=== PATIENT | female | born 1980 | race Caucasian/White ===

== ENCOUNTER 2019-09-22 16:31 | Emergency (ER) | payer OTHER, SELFPAY ==
[2019-09-22 16:47] VITALS: BP 127/70; PULSE 83; RESP 20; TEMP 37; O2SAT 100
--- NOTE | 2019-09-22 17:19 | ED.GENADULT ---
HPI - General Adult General Chief complaint: Upper Respiratory Infection Stated complaint: cough nausea diarrhea Time Seen by Provider: 09/22/19 17:20 Source: patient and RN notes reviewed Mode of arrival: ambulatory Limitations: no limitations History of Present Illness HPI narrative: This is a 39 years old female presented office for evaluation coughing for 3-day. Associated with rib pain and shortness of breath. She also report fever mostly at nighttime. Admits to history of asthma. She has been doing her nebulizer treatment with minimal relief. She does smoke. She did not receive influenza vaccine. She also report diarrhea today with nausea. Related Data Home Medications Medication Instructions Recorded Confirmed albuterol sulfate 2 puff INHALATION QID PRN 09/22/19 09/22/19 albuterol sulfate 2.5 mg INHALATION Q4H PRN 09/22/19 09/22/19 calcium carbonate-vitamin D3 1 tablet PO DAILY 09/22/19 09/22/19 [Calcium 500 With D] dqoxuwtxsvkb-uqv-qqzv-FA-vit K 1 tablet PO DAILY 09/22/19 09/22/19 [Adults Multivitamin] Allergies Allergy/AdvReac Type Severity Reaction Status Date / Time fentanyl Allergy Severe Stopped Verified 09/22/19 17:16 Breathing ciprofloxacin Allergy Mild RASH Verified 09/22/19 17:16 codeine Allergy Mild SEVERE Verified 09/22/19 17:16 DROWSINESS venom-honey bee Allergy Mild RASH Verified 09/22/19 17:16 levofloxacin Allergy Unknown Unknown Verified 09/22/19 17:16 Sulfa (Sulfonamide Allergy Unknown Unknown Verified 09/22/19 17:16 Antibiotics) propofol AdvReac Severe seizures Verified 09/22/19 17:16 CEFTRIAXONE SODIUM Allergy Severe Anaphylactic Uncoded 01/25/19 15:50 Shock Contrast Media Allergy Intermediate Hives / Uncoded 01/25/19 15:50 Red Face Review of Systems Review of Systems: Narrative: CONSTITUTIONAL: Denies fever during except at night time with low grade up to 100F. ENT: Reports sinus congestion with neck glans pain CARDIOVASCULAR: Denies chest pain. Reports ribs pain contributed to coughing RESPIRATORY: Reports coughing with dyspnea on exertion or talking GASTROINTESTINAL: Denies abdominal pain. Reports nausea, diarrhea. Reports vomiting at times contributed to phlegm from coughing GENITOURINARY: Denies urinary symptoms or discharge SKIN: Denies rash MUSCULOSKELETAL: Denies acute back pain NEUROLOGIC: Denies lightheaded PMFSH Past Medical History Medical History (Updated 09/22/19 @ 17:35 by ALEIDA Randle) Asthma Social History Social History (Updated 09/22/19 @ 17:19 by ALEIDA Randle) Smoking status: Current every day smoker Tobacco type: e-cigarettes Comments At time of signature, I agree with nursing past medical, surgical, social and family history. There is no relevant family history pertinent to the presenting complaint. Exam Narrative: Exam Narrative: GENERAL: This is a well-nourished, well-developed patient, in no apparent distress. EYES: Sclera clear/white. Vision is grossly intact. EARS: External ears normal, auditory canals clear and without drainage, TMs normal without perforation. Hearing grossly intact. NOSE: External nose normal with no obvious nasal discharge, nares without redness, no rhinorrhea. THROAT: Mucous membranes moist, posterior pharynx clear. NECK: Neck supple, non-tender without lymphadenopathy, masses or thyromegaly. CARDIOVASCULAR: Regular rate and rhythm without murmurs, gallops, or rubs. RESPIRATORY: Diminished breath sound throughout, with occasional cough noted during examination. Breath sounds equal bilaterally. No wheezes, rales, or rhonchi. GASTROINTESTINAL: Abdomen soft, non-tender, nondistended. Bowel sounds are active. No hepato-splenomegaly, or palpable masses. No guarding. SKIN: warm, intact with no suspicious lesions or rash, good texture and turgor. NEURO: awake, alert, and oriented to person, place and time. There were no obvious focal neurologic abnormalities. Steady gait [place]
== END 2019-09-22 17:40 | disposition home or self-care (01) ==
PROVIDERS: Emergency Provider Nurse Practitioner; PCP Family Medicine
DX: J45.909 Unspecified asthma, uncomplicated (principal); B34.9 Viral infection, unspecified; Z86.718 Personal history of other venous thrombosis and embolism; Z86.711 Personal history of pulmonary embolism; K21.9 Gastro-esophageal reflux disease without esophagitis; Z98.84 Bariatric surgery status; E11.9 Type 2 diabetes mellitus without complications; E03.9 Hypothyroidism, unspecified; E04.9 Nontoxic goiter, unspecified; N80.9 Endometriosis, unspecified; Z85.42 Personal history of malignant neoplasm of other parts of uterus; Z92.21 Personal history of antineoplastic chemotherapy
CPT/HCPCS: 99213; G0463

== ENCOUNTER 2020-09-13 01:25 | Emergency (ER) | payer OTHER, SELFPAY ==
[2020-09-13] VITALS (7 sets, daily range): BP systolic 140–157; BP diastolic 78–101; PULSE 69–101; RESP 15–20; TEMP 36.8; O2SAT 96–99
--- NOTE | 2020-09-13 01:59 | ED.GENADULT ---
HPI - General Adult General Chief complaint: Syncope Stated complaint: Dizzy, syncope? Time Seen by Provider: 09/13/20 01:39 History of Present Illness HPI narrative: Patient is a 40-year-old female who presents ER with 2 concerns. First concern is dizziness. Occurs when she goes from sitting to standing. Ongoing over the last couple days. Has had 3 episodes where it is caused her to fall to the ground. She is unsure if she has lost consciousness but knows she wakes up immediately upon being on the ground. She reports she has been eating and drinking okay. No dark stools. She does report that she has been having some urinary frequency and urgency similar to a UTI. No chest pain or chest pressure. Has found no alleviating factors. Related Data Home Medications Medication Instructions Recorded Confirmed albuterol sulfate 2 puff INHALATION QID PRN 09/22/19 09/22/19 albuterol sulfate 2.5 mg INHALATION Q4H PRN 09/22/19 09/22/19 calcium carbonate-vitamin D3 1 tablet PO DAILY 09/22/19 09/22/19 [Calcium 500 With D] abtqylbltdwa-gta-zhzd-FA-vit K 1 tablet PO DAILY 09/22/19 09/22/19 [Adults Multivitamin] Allergies Allergy/AdvReac Type Severity Reaction Status Date / Time fentanyl Allergy Severe Stopped Verified 09/22/19 17:16 Breathing ciprofloxacin Allergy Mild RASH Verified 09/22/19 17:16 codeine Allergy Mild SEVERE Verified 09/22/19 17:16 DROWSINESS venom-honey bee Allergy Mild RASH Verified 09/22/19 17:16 levofloxacin Allergy Unknown Unknown Verified 09/22/19 17:16 Sulfa (Sulfonamide Allergy Unknown Unknown Verified 09/22/19 17:16 Antibiotics) propofol AdvReac Severe seizures Verified 09/22/19 17:16 CEFTRIAXONE SODIUM Allergy Severe Anaphylactic Uncoded 01/25/19 15:50 Shock Contrast Media Allergy Intermediate Hives / Uncoded 01/25/19 15:50 Red Face Review of Systems Review of Systems: All systems reviewed & are unremarkable except as noted in HPI and below Constitutional: Constitutional: Denies chills, Denies fever(s) and Denies weakness ENT: Denies dizziness, Denies nasal congestion and Denies sore throat Cardiovascular: Cardiovascular: Denies chest pain and Denies radiating jaw, neck or arm pain Respiratory: Respiratory: Denies cough, Denies dyspnea and Denies wheezing Gastrointestinal: Gastrointestinal: Denies abdominal pain, Denies nausea and Denies vomiting Genitourinary: Genitourinary: Reports nocturia, Denies dysuria and Denies urinary incontinence Neurologic: Reports syncope and Denies headache(s) PMFSH Past Medical History Medical History (Updated 09/13/20 @ 03:32 by Donnell Jarquin MD) Anxiety Asthma COPD (chronic obstructive pulmonary disease) Cyclic vomiting syndrome Diabetes DVT (deep vein thrombosis) in Endometriosis Kidney stone SVT (supraventricular tachycardia) Uterine cancer Surgical History Surgical History (Updated 09/13/20 @ 02:03 by Donnell Jarquin MD) H/O gastric bypass History of hysterectomy History of lobectomy of lung Right upper lobe History of tonsillectomy Social History Social History (Updated 09/22/19 @ 17:19 by ALEIDA Randle) Smoking status: Current every day smoker Tobacco type: e-cigarettes/vaping Gender identity (if verbalized by the patient): Female Exam Narrative: Exam Narrative: GENERAL: Well-appearing, well-nourished, and in no acute distress. HEAD: Normocephalic, atraumatic. CHEST: Clear to auscultation. No respiratory distress. HEART: Regular rate and rhythm. Normal peripheral pulses. ABDOMEN: Soft, nontender, nondistended. EXTREMITIES: Normal range of motion. No edema. SKIN: Warm, dry, no rash. NEURO: Alert and oriented x3. PSYCH: Normal mood and affect. Course Course Emergency Course: Informed of results. Normal BP. D/c. Vital Signs Vital signs: Vital Signs Temperature 98.3 F 09/13/20 01:29 Pulse Rate 93 09/13/20 01:29 Respiratory Rate 20 09/13/20 01:29 [place]
--- NOTE | 2020-09-13 02:08 | ECG_ITS ---
Measurements Intervals [place] Rate: 86 P: 32 CT: 149 QRS: 4 QRSD: 97 T: 43 QT: 349 QTc: 420 Interpretive Statements SINUS RHYTHM NORMAL ECG Electronically Signed On 09-13-2020 6:59:50 TECHNOLOGY STRATEGIST by Justice Caldwell D.O.
[2020-09-13] MEDS: SODIUM CHLORIDE 0.9% IV 1,000 ML 999 ML IV CONT (02:19)
[2020-09-13 02:21] LABS: Basophils Percent Auto 0.5 % (0.2-1.2); Eosinophils Absolute Auto 0.2 K/mm3 (0-0.3); Eosinophils Percent Auto 2.2 % (0-4.4); Hematocrit 35.2 % (37.0-47.0); Hemoglobin 11.1 g/dL (12.0-15.0); Immature Granulocyte Absolute 0.02 K/mm3 (0.00-0.031); Immature Granulocyte Percent A 0.2 % (0-0.5); Lymphocytes Percent Auto 24.1 % (18.3-44.2); Mean Corpuscular HGB Conc 31.5 g/dl (32-36); Mean Corpuscular Hemoglobin 24.7 pg (26-34); Mean Corpuscular Volume 78.2 fl (80-100); Mean Platelet Volume 9.6 fl (7.4-10.4); Monocytes Absolute Auto 0.5 K/mm3 (0.1-0.6); Neutrophils Absolute Auto 5.6 K/mm3 (1.3-6.7); Platelet Count Result 400 k/mm3 (150-375); Red Cell Distribution Width 15.9 % (11.5-14.5); White Blood Count 8.3 K/mm3 (4.5-10.0)
[2020-09-13 02:28] LABS: Add Urine Microscopic? YES; Appearance Urine Cloudy (Clear); Bacteria Urine Trace /hpf; Bilirubin Urine Negative (Negative); Blood Urine Negative (Negative); Color Urine Yellow (Yellow); Glucose Urine UA Negative (Negative); Ketones Urine Negative (Negative); Leukocyte Esterase Ur Negative LEU/UL (Negative); Mucus Urine Rare /lpf; Nitrate Urine Negative (Negative); Protein Urine Negative (Negative); RBC Urine 0-2 /hpf (0-2); Specific Grav Ur 1.016 (1.001-1.035); Squamous Epithelial Cell Urine Moderate /hpf (Few); Urobilinogen Urine Negative mg/dL (<2.0); WBC Urine 0-3 /hpf
[2020-09-13 02:39] LABS: Anion Gap 5 mmol/L (8-16); Blood Urea Nitrogen 18 mg/dL (7-17); Carbon Dioxide 28 mmol/L (22-30); Chloride 107 mmol/L (98-107); Estimated CRCL calculation 103 ml/min; Estimated Glomerular Filt Rate > 60; Glucose 89 mg/dL (65-105); Potassium 4.8 mmol/L (3.4-5.0); Sodium 140 mmol/L (137-145)
== END 2020-09-13 03:47 | disposition home or self-care (01) ==
PROVIDERS: Emergency Provider Emergency Medicine; PCP Family Medicine
DX: R42 Dizziness and giddiness (principal); J44.9 Chronic obstructive pulmonary disease, unspecified; E11.9 Type 2 diabetes mellitus without complications; Z86.718 Personal history of other venous thrombosis and embolism; N80.9 Endometriosis, unspecified; Z87.442 Personal history of urinary calculi; Z85.42 Personal history of malignant neoplasm of other parts of uterus; Z98.84 Bariatric surgery status; F17.290 Nicotine dependence, other tobacco product, uncomplicated; Z90.2 Acquired absence of lung [part of]
CPT/HCPCS: 36415; 80048; 81001; 85025; 93005; 96360; 99284; J7030

== ENCOUNTER 2021-01-05 17:06 | Emergency (ER) | payer OTHER, SELFPAY ==
[2021-01-05 17:26] VITALS: BP 138/76; PULSE 84; RESP 20; TEMP 36.2; O2SAT 100
--- NOTE | 2021-01-05 17:36 | ED.NAVMDI ---
HPI - Nausea/Vomiting/Diarrhea General Chief complaint: Nausea/Vomiting/Diarrhea Stated complaint: Nausea, Abdominal pain Time Seen by Provider: 01/05/21 17:30 Source: patient Mode of arrival: ambulatory Limitations: no limitations History of Present Illness HPI Narrative: Tiara Mcpherson is a 40 yo female with a PMH of chronic N/V, prior HTN, DM, blood clots, depression, who comes with N/V/D since yesterday. Patient states that she feels poorly and wants some antiemetic and Imodium to try and treat her nausea vomiting so she can gradually get fluid rehydrated and sleep. Related Data Home Medications Medication Instructions Recorded Confirmed calcium carbonate-vitamin D3 1 tablet PO DAILY 09/22/19 09/22/19 [Calcium 500 With D] kfteezzabivg-iru-dbuc-FA-vit K 1 tablet PO DAILY 09/22/19 09/22/19 [Adults Multivitamin] sertraline mg 01/05/21 Allergies Allergy/AdvReac Type Severity Reaction Status Date / Time fentanyl Allergy Severe Stopped Verified 09/22/19 17:16 Breathing ciprofloxacin Allergy Mild RASH Verified 09/22/19 17:16 codeine Allergy Mild SEVERE Verified 09/22/19 17:16 DROWSINESS venom-honey bee Allergy Mild RASH Verified 09/22/19 17:16 levofloxacin Allergy Unknown Unknown Verified 09/22/19 17:16 Sulfa (Sulfonamide Allergy Unknown Unknown Verified 09/22/19 17:16 Antibiotics) propofol AdvReac Severe seizures Verified 09/22/19 17:16 CEFTRIAXONE SODIUM Allergy Severe Anaphylactic Uncoded 01/25/19 15:50 Shock Contrast Media Allergy Intermediate Hives / Uncoded 01/25/19 15:50 Red Face Review of Systems Review of Systems: Narrative: CONSTITUTIONAL: Denies fever, chills, sweats. EYES: Denies visual changes, redness, discharge. ENT: Denies rhinorrhea, congestion, sore throat, otalgia. CARDIOVASCULAR: Denies chest pain, palpitations, edema. RESPIRATORY: Denies dyspnea, wheezing, cough GASTROINTESTINAL: Denies abdominal pain, has nausea, has vomiting, has diarrhea. GENITOURINARY: Denies dysuria, hematuria, abnormal discharge SKIN: Denies rash or itching. NEUROLOGIC: Denies numbness, or focal weakness. PSYCHIATRIC: Denies anxiety or depression. [facility] Past Medical History Medical History Anxiety Asthma COPD (chronic obstructive pulmonary disease) Cyclic vomiting syndrome Diabetes DVT (deep vein thrombosis) in Endometriosis Kidney stone SVT (supraventricular tachycardia) Uterine cancer Surgical History Surgical History H/O gastric bypass History of hysterectomy History of lobectomy of lung Right upper lobe History of tonsillectomy Social History Social History Smoking status: Current every day smoker Tobacco type: e-cigarettes/vaping Gender identity (if verbalized by the patient): Female Comments At time of signature, I agree with nursing past medical, surgical, social and family history. There is no relevant family history pertinent to the presenting complaint. Exam Narrative: Exam Narrative: GENERAL: This is a well-nourished, well-developed patient, in mild distress. HEAD: normocephalic, atraumatic. EYES: Sclera clear/white. Vision is grossly intact. EARS: External ears normal, . Hearing grossly intact. NOSE: External nose normal without nasal discharge, nares without redness, no rhinorrhea. THROAT: Mucous membranes moist, NECK: Neck supple, non-tender CARDIOVASCULAR: Regular rate and rhythm without murmurs, gallops, or rubs. RESPIRATORY: Coarse to auscultation. Breath sounds equal bilaterally. Mild diffuse wheezes, no rales, or rhonchi.(smoker) GASTROINTESTINAL: Abdomen soft, epigastric tenderness, no tenderness in other regions of abdomen.epigastric pain-clear pain with palpation, hypoactive bowel sounds SKIN: warm, intact with no suspicious lesions or rash, good texture and turgor. NEURO
[2021-01-05] MEDS: ONDANSETRON HCL ODT 4 MG TABLET SUBLINGUAL (18:19)
== END 2021-01-05 18:26 | disposition short-term general hospital (02) ==
PROVIDERS: Emergency Provider Nurse Practitioner; PCP Family Medicine
DX: E86.0 Dehydration (principal); R10.13 Epigastric pain; F17.200 Nicotine dependence, unspecified, uncomplicated; J44.9 Chronic obstructive pulmonary disease, unspecified; E11.9 Type 2 diabetes mellitus without complications; Z86.718 Personal history of other venous thrombosis and embolism; Z85.42 Personal history of malignant neoplasm of other parts of uterus; Z98.84 Bariatric surgery status; Z90.2 Acquired absence of lung [part of]; N80.9 Endometriosis, unspecified
CPT/HCPCS: 81003; 99213; A9270; G0463

== ENCOUNTER 2021-01-05 19:17 | Emergency (ER) | payer OTHER, SELFPAY ==
--- NOTE | ~2021-01-05 | CT_ITS ---
EXAMINATION: CT abdomen pelvis wo con DATE: 01/05/2021 23:07 INDICATION: Abdominal pain TECHNIQUE: Computed tomography (CT) of the abdomen and pelvis was performed without intravenous contr ast. Automated exposure control and iterative reconstruction technique were employed. Exam dose: 163 7.23 mGy-cm total exam DLP. COMPARISON: 03/10/2017 CT abdomen pelvis FINDINGS: The lung bases are clear of infiltrate or consolidation. Normal heart size. There is patten ry artery calcification. No pericardial or pleural effusion. Status post gastric bypass surgery. The liver, gallbladder, bile ducts, pancreas, pancreatic duct, spleen and adrenal glands are unremark able. No renal mass lesion or urinary tract calculus or hydroureteronephrosis. Normal caliber of the abdomi nal aorta. No intraperitoneal or retroperitoneal or pelvic mass lesion or adenopathy or ascites. The urinary bladder is largely evacuated. Normal appendix. Status post hysterectomy. Diverticulosis of the left and right colon; no CT evidence of diverticuliti s. No bowel obstruction, bowel wall thickening, pneumatosis or intraperitoneal free air. Normal caliber, calcification of the abdominal aorta and iliac arteries. No intraperitoneal or retrop eritoneal or pelvic mass lesion or adenopathy or ascites. Prominent degenerative disc disease and minimal retrolisthesis at L5-S1. No suspicious osteolytic or osteoblastic lesions are noted. IMPRESSION: Status post gastric bypass surgery Status post hysterectomy Diverticulosis of left and right colon; no CT evidence of diverticulitis Normal appendix Reviewed, dictated and finalized at [facility] Reviewed, dictated and finalized at [facility].
[2021-01-05 20:32] VITALS: BP 156/85; PULSE 84; RESP 17; TEMP 36.6; O2SAT 99
[2021-01-05 20:53] LABS: Basophils Percent Auto 0.6 % (0.2-1.2); Eosinophils Absolute Auto 0.2 K/mm3 (0-0.3); Eosinophils Percent Auto 3.1 % (0-4.4); Hematocrit 34.1 % (37.0-47.0); Hemoglobin 10.3 g/dL (12.0-15.0); Immature Granulocyte Absolute 0.01 K/mm3 (0.00-0.031); Immature Granulocyte Percent A 0.1 % (0-0.5); Lymphocytes Percent Auto 27.7 % (18.3-44.2); Mean Corpuscular HGB Conc 30.2 g/dl (32-36); Mean Corpuscular Hemoglobin 23.3 pg (26-34); Mean Corpuscular Volume 77.1 fl (80-100); Mean Platelet Volume 9.3 fl (7.4-10.4); Monocytes Absolute Auto 0.5 K/mm3 (0.1-0.6); Monocytes Percent Auto 7.4 % (2.6-8.5); Neutrophils Absolute Auto 4.2 K/mm3 (1.3-6.7); Neutrophils Percent Auto 61.1 % (45.5-73.1); Platelet Count Result 432 k/mm3 (150-375); Red Blood Count 4.42 M/mm3 (4.2-5.4); Red Cell Distribution Width 16.7 % (11.5-14.5); White Blood Count 6.9 K/mm3 (4.5-10.0)
[2021-01-05 20:56] LABS: Add Urine Microscopic? YES; Appearance Urine Cloudy (Clear); Bilirubin Urine Negative (Negative); Blood Urine Negative (Negative); Color Urine Amber (Yellow); Glucose Urine UA Negative (Negative); Ketones Urine Negative (Negative); Leukocyte Esterase Ur Negative LEU/UL (Negative); Mucus Urine Rare /lpf; Nitrate Urine Negative (Negative); Protein Urine Negative (Negative); RBC Urine 0-2 /hpf (0-2); Specific Grav Ur 1.019 (1.001-1.035); Squamous Epithelial Cell Urine Rare /hpf (Few); Urobilinogen Urine Negative mg/dL (<2.0); WBC Urine 0-3 /hpf
[2021-01-05 21:03] LABS: Alanine Aminotransferase 23 U/L (4-35); Albumin Level 4.3 g/dL (3.5-5.1); Alkaline Phosphatase 78 U/L (38-126); Anion Gap 10 mmol/L (8-16); Aspartate Amino Transferase 32 U/L (14-36); Bilirubin,Total 0.3 mg/dL (0.2-1.3); Blood Urea Nitrogen 19 mg/dL (7-17); Calcium 9.6 mg/dL (8.4-10.2); Carbon Dioxide 24 mmol/L (22-30); Chloride 109 mmol/L (98-107); Estimated CRCL calculation 106 ml/min; Estimated Glomerular Filt Rate > 60; Glucose 89 mg/dL (65-105); Lipase 89 U/L (23-300); Potassium 4.1 mmol/L (3.4-5.0); Sodium 143 mmol/L (137-145)
--- NOTE | 2021-01-05 22:33 | ED.GENADULT ---
HPI - General Adult General Chief complaint: Abdominal Pain Stated complaint: Abd pain Time Seen by Provider: 01/05/21 22:11 History of Present Illness HPI narrative: Patient 40-year-old female presents the emergency department with chief complaint of abdominal pain. Patient reports for the last 2 days she has been having pain in the right upper quadrant and epigastric region. The patient states that she is also had nausea and vomiting and has had poor p.o. intake patient states that she went to an urgent care facility was seen there and then transferred to the emergency department for further evaluation. Patient states she still feels extremely nauseated states that she is very uncomfortable throughout her abdomen. The patient reports she still has an intact gallbladder and intact appendix. Patient states that she has had no fevers no diarrhea patient reports that she does have history of a hysterectomy and a surgical procedure also for complications after the hysterectomy. Related Data Home Medications Medication Instructions Recorded Confirmed calcium carbonate-vitamin D3 1 tablet PO DAILY 09/22/19 09/22/19 [Calcium 500 With D] ewuywiuofdjf-vxe-skio-FA-vit K 1 tablet PO DAILY 09/22/19 09/22/19 [Adults Multivitamin] sertraline mg 01/05/21 Allergies Allergy/AdvReac Type Severity Reaction Status Date / Time fentanyl Allergy Severe Stopped Verified 09/22/19 17:16 Breathing ciprofloxacin Allergy Mild RASH Verified 09/22/19 17:16 codeine Allergy Mild SEVERE Verified 09/22/19 17:16 DROWSINESS venom-honey bee Allergy Mild RASH Verified 09/22/19 17:16 levofloxacin Allergy Unknown Unknown Verified 09/22/19 17:16 Sulfa (Sulfonamide Allergy Unknown Unknown Verified 09/22/19 17:16 Antibiotics) propofol AdvReac Severe seizures Verified 09/22/19 17:16 CEFTRIAXONE SODIUM Allergy Severe Anaphylactic Uncoded 01/25/19 15:50 Shock Contrast Media Allergy Intermediate Hives / Uncoded 01/25/19 15:50 Red Face Review of Systems Review of Systems: Narrative: A 10 system review of systems was completed on the patient and is negative except for what is stated in the HPI. Nursing and ancillary documentation was reviewed. [facility] Past Medical History Medical History Anxiety Asthma COPD (chronic obstructive pulmonary disease) Cyclic vomiting syndrome Diabetes DVT (deep vein thrombosis) in Endometriosis Kidney stone SVT (supraventricular tachycardia) Uterine cancer Surgical History Surgical History H/O gastric bypass History of hysterectomy History of lobectomy of lung Right upper lobe History of tonsillectomy Social History Social History Smoking status: Current every day smoker Tobacco type: e-cigarettes/vaping Gender identity (if verbalized by the patient): Female Exam Narrative: Exam Narrative: GENERAL: Well-appearing, well-nourished, and in no acute distress. HEAD: Normocephalic, atraumatic. EYES: PERRLA and EOMI. ENT: Nares clear, no rhinorrhea or epistaxis. Mucous membranes moist. NECK: Supple. CHEST: Clear to auscultation. No respiratory distress. HEART: Regular rate and rhythm. No murmur heard. Normal peripheral pulses. ABDOMEN: Soft, tender to palpation in the right upper quadrant and right lower quadrant, nondistended, normal active bowel sounds. EXTREMITIES: Normal range of motion. No edema. SKIN: Warm, dry, no rash. NEURO: No focal deficits. Alert and oriented x3. PSYCH: Normal mood and affect. Course Vital Signs Vital signs: Vital Signs Temperature 36.6 C 01/05/21 20:32 Pulse Rate 84 01/05/21 20:32 Respiratory Rate 17 01/05/21 20:32 Blood Pressure 156/85 H 01/05/21 20:32 Pulse Oximetry 99 01/05/21 20:32 Temperature 36.6 C 01/05/21 20:32 Pulse Rate 8
[2021-01-05] MEDS: MORPHINE SULFATE (*CRX) 4 MG/ML INJ IV PUSH (22:55)
[2021-01-05] MEDS: PROCHLORPERAZINE EDISYLATE 10 MG/2 ML VIAL IV PUSH (22:56)
[2021-01-05] MEDS: SODIUM CHLORIDE 0.9% IV 1,000 ML 999 ML IV CONT (22:56)
[2021-01-05 23:00] VITALS: BP 108/57; PULSE 78; RESP 20; TEMP 36.7; O2SAT 97
--- NOTE | 2021-01-05 23:20 | PC.NURSE ---
Assumed care of pt. at this time. Report from SANJIV Ahmadi
--- NOTE | 2021-01-05 23:55 | PC.NURSE ---
Pt. requesting an update. ERP notified states he will be in to update pt. shortly.
[2021-01-06] VITALS: BP 127/89; PULSE 64; RESP 12; O2SAT 97
== END 2021-01-06 00:37 | disposition left against medical advice (07) ==
PROVIDERS: Emergency Provider Emergency Medicine; PCP Family Medicine
DX: R10.84 Generalized abdominal pain (principal); J44.9 Chronic obstructive pulmonary disease, unspecified; E11.9 Type 2 diabetes mellitus without complications; N80.9 Endometriosis, unspecified; F41.9 Anxiety disorder, unspecified; Z87.442 Personal history of urinary calculi; Z85.42 Personal history of malignant neoplasm of other parts of uterus; Z86.718 Personal history of other venous thrombosis and embolism; Z98.84 Bariatric surgery status; F17.290 Nicotine dependence, other tobacco product, uncomplicated
CPT/HCPCS: 36415; 74176; 80053; 81001; 81003; 81025; 83690; 85025; 96361; 96374; 96375; 99284; A9270; J0780; J2270; J7030

== ENCOUNTER 2021-04-23 18:48 | Emergency (ER) | payer OTHER, SELFPAY ==
--- NOTE | ~2021-04-23 | CT_ITS ---
EXAMINATION: CT abdomen pelvis wo con DATE: 04/23/2021 21:58 INDICATION: Right flank pain. TECHNIQUE: Computed tomography (CT) of the abdomen and pelvis was performed without intravenous contr ast. Automated exposure control and iterative reconstruction technique were employed. The dose-length product was 792.97 mGy-cm. COMPARISON: CT abdomen and pelvis 01/05/2021 FINDINGS: The visualized portions of the lung bases demonstrate mild atelectasis. No pleural effusion . The heart size is normal. No pericardial effusion. There are surgical changes of the stomach. The l iver, gallbladder, spleen, pancreas, adrenal glands, and left kidney are normal. There is a 1 mm ston e in right kidney. There is diverticulosis of the colon without evidence of diverticulitis. The appen betsy is normal. There are no dilated loops of bowel. There are no pathologically enlarged lymph nodes. There is no free intraperitoneal fluid. There is severe lumbar spondylosis. There is mild thoracic s pondylosis. IMPRESSION: 1. 1 mm nonobstructing right kidney stone. Reviewed, dictated and finalized at [facility]
--- NOTE | ~2021-04-23 | XR_ITS ---
EXAMINATION: XR abdomen/kub 1V DATE: 04/23/2021 22:05 INDICATION: Right flank pain. TECHNIQUE: A supine view of the abdomen on 2 radiographs was obtained. COMPARISON: CT abdomen and pelvis 04/23/2021 FINDINGS: There are no dilated loops of bowel. There is a phlebolith in right pelvis. IMPRESSION: 1. No visible urolithiasis. Reviewed, dictated and finalized at [facility]. IMPRESSION: 1. No visible urolithiasis.
[2021-04-23 19:30] VITALS: BP 126/79; PULSE 77; RESP 20; TEMP 36.6; O2SAT 99
[2021-04-23 19:31] LABS: Basophils Absolute Auto 0.1 K/mm3 (0.0-0.1); Basophils Percent Auto 0.8 % (0.2-1.2); Eosinophils Absolute Auto 0.2 K/mm3 (0-0.3); Eosinophils Percent Auto 2.2 % (0-4.4); Hematocrit 35.1 % (37.0-47.0); Hemoglobin 10.6 g/dL (12.0-15.0); Immature Granulocyte Absolute 0.02 K/mm3 (0.00-0.031); Immature Granulocyte Percent A 0.3 % (0-0.5); Lymphocytes Absolute Auto 2.13 K/mm3 (0.9-3.2); Lymphocytes Percent Auto 27.3 % (18.3-44.2); Mean Corpuscular HGB Conc 30.2 g/dl (32-36); Mean Corpuscular Hemoglobin 22.7 pg (26-34); Mean Corpuscular Volume 75.3 fl (80-100); Mean Platelet Volume 9.2 fl (7.4-10.4); Monocytes Absolute Auto 0.6 K/mm3 (0.1-0.6); Monocytes Percent Auto 7.6 % (2.6-8.5); Neutrophils Absolute Auto 4.8 K/mm3 (1.3-6.7); Neutrophils Percent Auto 61.8 % (45.5-73.1); Platelet Count Result 390 k/mm3 (150-375); Red Blood Count 4.66 M/mm3 (4.2-5.4); Red Cell Distribution Width 16.6 % (11.5-14.5); White Blood Count 7.8 K/mm3 (4.5-10.0)
[2021-04-23 19:38] LABS: Add Urine Microscopic? YES; Appearance Urine Cloudy (Clear); Bilirubin Urine Negative (Negative); Blood Urine 3+ (Negative); Color Urine Amber (Yellow); Glucose Urine UA Negative (Negative); Ketones Urine Negative (Negative); Leukocyte Esterase Ur Negative LEU/UL (Negative); Mucus Urine Rare /lpf; Nitrate Urine Negative (Negative); Protein Urine Negative (Negative); RBC Urine >75 /hpf (0-2); Specific Grav Ur 1.026 (1.001-1.035); Squamous Epithelial Cell Urine Few /hpf (Few); Urobilinogen Urine Negative mg/dL (<2.0)
[2021-04-23 19:40] LABS: Anion Gap 11 mmol/L (8-16); Blood Urea Nitrogen 19 mg/dL (7-17); Calcium 9.2 mg/dL (8.4-10.2); Carbon Dioxide 25 mmol/L (22-30); Chloride 104 mmol/L (98-107); Estimated CRCL calculation 115 ml/min; Estimated Glomerular Filt Rate > 60; Glucose 74 mg/dL (65-110); Potassium 4.4 mmol/L (3.4-5.0); Sodium 140 mmol/L (137-145)
--- NOTE | 2021-04-23 21:40 | ED.ABDPAIN ---
HPI - Abdominal Pain General Chief Complaint: Abdominal Pain Stated Complaint: right flank pain, dysuria Time Seen by Provider: 04/23/21 21:19 Source: patient and RN notes reviewed Mode of arrival: ambulatory Limitations: no limitations History of Present Illness HPI narrative: This is a 40 year old female who presents for evaluation of right lower abdominal pain for 3 days. She reports right lower abdominal pain that radiates to her low back. She reports her pain intermittently worsens and today she develop nausea and vomiting with her pain. She is having increased urinary urgency and dysuria so she is concerned about of kidney infection or a kidney stone. Today she has been unable to keep any food of fluids down. She denies fever or chills. She reports she is able to take hydromorphone for pain with out allergic reaction. Related Data Home Medications Medication Instructions Recorded Confirmed calcium carbonate-vitamin D3 1 tablet PO DAILY 09/22/19 09/22/19 [Calcium 500 With D] sehusnmyxjhx-ute-nphw-FA-vit K 1 tablet PO DAILY 09/22/19 09/22/19 [Adults Multivitamin] sertraline mg 01/05/21 Allergies Allergy/AdvReac Type Severity Reaction Status Date / Time fentanyl Allergy Severe Stopped Verified 04/23/21 23:25 Breathing ciprofloxacin Allergy Mild RASH Verified 04/23/21 23:25 codeine Allergy Mild SEVERE Verified 04/23/21 23:25 DROWSINESS venom-honey bee Allergy Mild RASH Verified 04/23/21 23:25 levofloxacin Allergy Unknown Unknown Verified 04/23/21 23:25 Sulfa (Sulfonamide Allergy Unknown Unknown Verified 04/23/21 23:25 Antibiotics) propofol AdvReac Severe seizures Verified 04/23/21 23:25 CEFTRIAXONE SODIUM Allergy Severe Anaphylactic Uncoded 04/23/21 23:25 Shock Contrast Media Allergy Intermediate Hives / Uncoded 04/23/21 23:25 Red Face Review of Systems Review of Systems: All systems reviewed & are unremarkable except as noted in HPI and below PMFSH Past Medical History Medical History Anxiety Asthma COPD (chronic obstructive pulmonary disease) Cyclic vomiting syndrome Diabetes DVT (deep vein thrombosis) in Endometriosis Kidney stone SVT (supraventricular tachycardia) Uterine cancer Surgical History Surgical History H/O gastric bypass History of hysterectomy History of lobectomy of lung Right upper lobe History of tonsillectomy Social History Social History Smoking status: Current every day smoker Tobacco type: e-cigarettes/vaping Gender identity (if verbalized by the patient): Female Exam Const: General: no acute distress and alert Orientation/consciousness: patient oriented x3 Eyes: EOM: EOMs intact bilaterally Chest: Chest palpation & inspection: normal inspection of the chest Resp: Effort & Inspection: normal respiratory effort and no retractions Auscultation: clear to auscultation bilaterally Cardio: Rate: regular rate Rhythm: regular rhythm Heart sounds: no murmurs GI: GI Palp: Yes Soft to palpation, Yes Tenderness to palpation present (GI) and No Guarding due to palpation present (GI) Auscultation: normal bowel sounds : General: Yes CVA tenderness on the right Skin: General skin exam: normal color Rashes: no rashes Neuro: General: patient oriented x3, moves all extremities and CN's II-XI intact bilaterally Psych: Mental Status: mental status grossly normal Affect: normal affect Course Reevaluation(s) Reevaluation #1: PAtient reports she feels better. I Discussed Ct scan was unremarkable. She possible already passed stone. She is eager to leave as she has a tomorrow. Date: 04/24/21 Time: 00:07 Vital Signs Vital signs: Vital Signs Temperature 97.9 F 04/23/21 19:30 Pulse Rate 77 04/23/21 19:30 Respiratory Rate 20 04/23/21
--- NOTE | 2021-04-23 22:18 | PC.NURSE ---
Pt to ED c/o RLQ and right flank pain x 3 days. reports hx of kidney stones. also c/o painful urination. IV attempted x 2 without success. pt appears in no acute distress.
[2021-04-23] MEDS: ONDANSETRON HCL ODT 4 MG TABLET 8 MG PO (23:26)
[2021-04-23] MEDS: PHENAZOPYRIDINE HCL 100 MG TABLET 200 MG PO (23:26)
[2021-04-23] MEDS: HYDROmorphone HCL INJ (*CRX) 1 MG/ML SYR IM (23:28)
[2021-04-24 00:24] VITALS: BP 123/88; PULSE 62; RESP 16; O2SAT 98
== END 2021-04-24 00:26 | disposition home or self-care (01) ==
PROVIDERS: Emergency Provider General Practice; PCP Family Medicine
DX: R31.9 Hematuria, unspecified (principal); R10.9 Unspecified abdominal pain; F41.9 Anxiety disorder, unspecified; J44.9 Chronic obstructive pulmonary disease, unspecified; E11.9 Type 2 diabetes mellitus without complications; F17.290 Nicotine dependence, other tobacco product, uncomplicated; Z87.09 Personal history of other diseases of the respiratory system; Z86.718 Personal history of other venous thrombosis and embolism; Z87.442 Personal history of urinary calculi; Z90.710 Acquired absence of both cervix and uterus; Z90.89 Acquired absence of other organs
CPT/HCPCS: 36415; 74018; 74176; 80048; 81001; 81025; 85025; 96372; 99284; A9270; J1170

== ENCOUNTER 2021-04-25 19:02 | Emergency (ER) | payer OTHER, SELFPAY ==
[2021-04-25] VITALS (7 sets, daily range): BP systolic 108–156; BP diastolic 68–95; PULSE 72–89; RESP 14–16; TEMP 36.3–36.4; O2SAT 96–100
[2021-04-25 19:21] LABS: Basophils Absolute Auto 0.1 K/mm3 (0.0-0.1); Basophils Percent Auto 0.6 % (0.2-1.2); Eosinophils Absolute Auto 0.2 K/mm3 (0-0.3); Hematocrit 36.3 % (37.0-47.0); Hemoglobin 10.8 g/dL (12.0-15.0); Immature Granulocyte Absolute 0.02 K/mm3 (0.00-0.031); Immature Granulocyte Percent A 0.2 % (0-0.5); Lymphocytes Absolute Auto 1.76 K/mm3 (0.9-3.2); Lymphocytes Percent Auto 20.2 % (18.3-44.2); Mean Corpuscular HGB Conc 29.8 g/dl (32-36); Mean Corpuscular Volume 77.4 fl (80-100); Mean Platelet Volume 9.8 fl (7.4-10.4); Monocytes Absolute Auto 0.5 K/mm3 (0.1-0.6); Monocytes Percent Auto 5.9 % (2.6-8.5); Neutrophils Absolute Auto 6.2 K/mm3 (1.3-6.7); Neutrophils Percent Auto 71.1 % (45.5-73.1); Platelet Count Result 364 k/mm3 (150-375); Red Blood Count 4.69 M/mm3 (4.2-5.4); White Blood Count 8.7 K/mm3 (4.5-10.0)
[2021-04-25 19:31] LABS: Alanine Aminotransferase 18 U/L (4-35); Albumin Level 4.7 g/dL (3.5-5.1); Alkaline Phosphatase 78 U/L (38-126); Anion Gap 10 mmol/L (8-16); Aspartate Amino Transferase 22 U/L (14-36); Bilirubin,Total 0.4 mg/dL (0.2-1.3); Blood Urea Nitrogen 22 mg/dL (7-17); Calcium 9.1 mg/dL (8.4-10.2); Carbon Dioxide 23 mmol/L (22-30); Chloride 105 mmol/L (98-107); Estimated CRCL calculation 115 ml/min; Estimated Glomerular Filt Rate > 60; Glucose 117 mg/dL (65-110); Lipase 142 U/L (23-300); Potassium 4.2 mmol/L (3.4-5.0); Sodium 138 mmol/L (137-145)
[2021-04-25 19:45] LABS: Add Urine Microscopic? YES; Appearance Urine Cloudy (Clear); Bilirubin Urine Negative (Negative); Blood Urine 3+ (Negative); Color Urine Amber (Yellow); Glucose Urine UA Negative (Negative); Ketones Urine Negative (Negative); Leukocyte Esterase Ur Negative LEU/UL (Negative); Mucus Urine Rare /lpf; Nitrate Urine Negative (Negative); Protein Urine 1+ mg/dL (Negative); RBC Urine >75 /hpf (0-2)
[2021-04-25 19:46] LABS: Hypochromasia 1+ (NORMAL); Platelet Estimate Adequate (Adequate)
[2021-04-25 19:47] LABS: Anisocytosis 2+ (NORMAL)
[2021-04-25 19:52] LABS: Specific Grav Ur 1.033 (1.001-1.035)
--- NOTE | 2021-04-25 22:22 | ED.NAVMDI ---
HPI - Nausea/Vomiting/Diarrhea General Chief complaint: Nausea/Vomiting/Diarrhea Stated complaint: Vomiting Time Seen by Provider: 04/25/21 21:28 Source: patient Mode of arrival: ambulatory Limitations: no limitations History of Present Illness HPI Narrative: Patient is a 38-year-old female complaining of nausea vomiting accompanied by left flank pain and increased urinary frequency that started 3 days ago. Patient states that she was seen here 2 days ago for the same complaints, was diagnosed with UTI and given Macrobid. Patient states that she cannot keep the antibiotic down due to her constant nausea vomiting. Patient had labs and a CT scan done 2 days ago when she was seen here in the emergency room. Related Data Home Medications Medication Instructions Recorded Confirmed calcium carbonate-vitamin D3 1 tablet PO DAILY 09/22/19 09/22/19 [Calcium 500 With D] solidmolqhsi-rii-fytx-FA-vit K 1 tablet PO DAILY 09/22/19 09/22/19 [Adults Multivitamin] sertraline mg 01/05/21 Allergies Allergy/AdvReac Type Severity Reaction Status Date / Time fentanyl Allergy Severe Stopped Verified 04/23/21 23:25 Breathing ciprofloxacin Allergy Mild RASH Verified 04/23/21 23:25 codeine Allergy Mild SEVERE Verified 04/23/21 23:25 DROWSINESS venom-honey bee Allergy Mild RASH Verified 04/23/21 23:25 levofloxacin Allergy Unknown Unknown Verified 04/23/21 23:25 Sulfa (Sulfonamide Allergy Unknown Unknown Verified 04/23/21 23:25 Antibiotics) propofol AdvReac Severe seizures Verified 04/23/21 23:25 CEFTRIAXONE SODIUM Allergy Severe Anaphylactic Uncoded 04/23/21 23:25 Shock Contrast Media Allergy Intermediate Hives / Uncoded 04/23/21 23:25 Red Face Review of Systems Review of Systems: All systems reviewed & are unremarkable except as noted in HPI and below Constitutional: Constitutional: Denies body ache(s), Denies chills, Denies excessive sweating, Denies fatigue, Denies fever(s), Denies headache(s), Denies lethargy, Denies malaise, Denies weakness and Denies weight loss Eyes: Eyes: Denies blurry vision, Denies change in vision and Denies loss of vision ENT: Denies dizziness, Denies ear discharge, Denies headache(s), Denies lip swelling, Denies epistaxis, Denies nasal congestion, Denies neck pain, Denies throat swelling and Denies tongue swelling Cardiovascular: Cardiovascular: Denies chest pain, Denies chest pain at rest, Denies chest pain with activity, Denies diaphoresis, Denies rapid heart rate, Denies edema, Denies irregular heart rhythm, Denies lightheadedness, Denies palpitations, Denies dyspnea and Denies dyspnea on exertion Respiratory: Respiratory: Denies chest congestion, Denies cough, Denies hemoptysis, Denies dyspnea and Denies dyspnea on exertion Gastrointestinal: Gastrointestinal: Denies abdominal pain, Denies melena, Denies hematochezia, Denies diarrhea and Denies hematemesis Musculoskeletal: Musculoskeletal: Denies abnormal gait, Denies deformity, Denies joint swelling, Denies limited range of motion, Denies neck pain and Denies numbness Neurologic: Denies Abnormal speech present, Denies abnormal gait, Denies confusion, Denies dizziness, Denies headache(s), Denies focal weakness, Denies loss of vision, Denies numbness, Denies Other visual disturbances, Denies Sensory deficit (Neuro) and Denies weakness Psychiatric: Psychiatric: Denies confusion, Denies depression, Denies auditory hallucinations, Denies homicidal ideation and Denies suicidal ideation Endocrine: Endocrine: Denies cold intolerance, Denies excessive sweating, Denies fatigue, Denies heat intolerance and Denies palpitations Hematologic/Lymphatic: Hematologic/Lymphatic: Denies easy bleeding and Denies easy bruising Allergic/Immunologic: Allergic/Immunologic: Denies lip swelling, Denies throat swelling and Denies tongue swelling PMFSH Past Medical History Medical History Anxiety Asthma CO
[2021-04-25] MEDS: PROMETHAZINE HCL 25 MG/ML AMPUL 12.5 MG IV PUSH (22:33)
[2021-04-25] MEDS: SODIUM CHLORIDE 0.9% IV 1,000 ML 999 ML IV CONT (22:35)
[2021-04-26] MEDS: KETOROLAC 30 MG/ML VIAL (*BKC) IV PUSH (00:21)
[2021-04-26] MEDS: HYDROcodone/acetaminophen (*CRX) 5-325 MG TABLET 1 TAB PO (00:22)
[2021-04-26 00:23] VITALS: BP 118/81; PULSE 100; RESP 19; O2SAT 99
[2021-04-26 01:16] VITALS: BP 121/74; PULSE 77; RESP 14; O2SAT 97
== END 2021-04-26 01:16 | disposition home or self-care (01) ==
PROVIDERS: Emergency Medicine; Emergency Provider Emergency Medicine; PCP Family Medicine
DX: N39.0 Urinary tract infection, site not specified (principal); R11.2 Nausea with vomiting, unspecified; F41.9 Anxiety disorder, unspecified; J45.909 Unspecified asthma, uncomplicated; E11.9 Type 2 diabetes mellitus without complications; Z87.442 Personal history of urinary calculi
CPT/HCPCS: 36415; 80053; 81001; 81025; 83690; 85025; 96361; 96365; 96374; 96375; 99284; A9270; J1885; J2543; J2550; J7030

== ENCOUNTER 2021-08-06 10:54 | Emergency (ER) | payer OTHER, SELFPAY ==
--- NOTE | ~2021-08-06 | XR_ITS ---
EXAMINATION: XR ankle RT min 3V EXAM DATE: 08/06/2021 11:27 INDICATION: Right ankle injury, pain. Initial encounter. TECHNIQUE: Right ankle frontal, lateral and oblique projections obtained and reviewed. There is no p rior study for comparison. FINDINGS: The right ankle mortise appears intact. Tiny inferior calcaneal spur. There are no acute fractures or dislocations identified. There is no subcutaneous gas. The soft tissue is unremarkabl e. There are no radiopaque foreign bodies. IMPRESSION: No acute osseous findings. Reviewed, dictated and finalized at location A. NCIAL AID COORDINATOR IMPRESSION: No acute osseous findings.
[2021-08-06 11:06] VITALS: BP 126/97; PULSE 81; RESP 16; TEMP 37; O2SAT 100
--- NOTE | 2021-08-06 12:23 | ED.LOWEXIN ---
HPI - Extremity Injury (Lower) General Chief Complaint: Extremity Injury, Lower Stated Complaint: right ankle injury Time Seen by Provider: 08/06/21 12:24 Source: patient, RN notes reviewed and old records reviewed Mode of arrival: ambulatory Limitations: no limitations History of Present Illness HPI Narrative: 41 year old female who presents ambulatory to [facility] and was placed in wheelchair with complaints of pain to her medial and lateral right ankle after slipping on wet tile last night Patient states that her pain is 8/10 is sharp and shooting in intensity has taken Naproxen and applied ice to her ankle region no acute swelling or bruising noted to right ankle. Patient has strong right pedal pulse with no stated tingling or numbness of right foot, with foot warm and pink. Patient has not had COVID or Flu vaccinations. MD complaint: ankle injury Injury: Right: ankle Type of Injury: other (twisting) Severity scale (1-10): 8 Treatments prior to arrival: cold therapy and NSAIDS Related Data Home Medications Medication Instructions Recorded Confirmed fpadenrwofts-duh-xpsc-FA-vit K 1 tablet PO DAILY 09/22/19 08/06/21 [Adults Multivitamin] sertraline 100 mg PO DAILY 08/06/21 08/06/21 Allergies Allergy/AdvReac Type Severity Reaction Status Date / Time fentanyl Allergy Severe Stopped Verified 08/06/21 11:18 Breathing ciprofloxacin Allergy Mild RASH Verified 08/06/21 11:18 codeine Allergy Mild SEVERE Verified 08/06/21 11:18 DROWSINESS venom-honey bee Allergy Mild RASH Verified 08/06/21 11:18 levofloxacin Allergy Unknown Unknown Verified 08/06/21 11:18 Sulfa (Sulfonamide Allergy Unknown Unknown Verified 08/06/21 11:18 Antibiotics) propofol AdvReac Severe seizures Verified 08/06/21 11:18 CEFTRIAXONE SODIUM Allergy Severe Anaphylactic Uncoded 04/23/21 23:25 Shock Contrast Media Allergy Intermediate Hives / Uncoded 04/23/21 23:25 Red Face Review of Systems Review of Systems: CONSTITUTIONAL: Denies fever, chills, or sweats. EYES: Denies visual changes, redness, or discharge. ENT: Denies rhinorrhea, congestion, sore throat, or otalgia. CARDIOVASCULAR: Denies chest pain, palpitations, or edema. RESPIRATORY: Denies cough or dyspnea. GASTROINTESTINAL: Denies abdominal pain, nausea, vomiting, or diarrhea. GENITOURINARY: Denies dysuria or hematuria. SKIN: Denies rash or itching. MUSCULOSKELETAL: Denies back pain,positive for right ankle joint pain, or myalgia. NEUROLOGIC: Denies headache, numbness, or weakness. PSYCHIATRIC: Positive for history of anxiety or depression. All systems reviewed & are unremarkable except as noted in HPI and below PMFSH Past Medical History Medical History (Updated 08/07/21 @ 14:21 by Jackie Hirsch NP) Anxiety Anxiety and depression Asthma COPD (chronic obstructive pulmonary disease) Cyclic vomiting syndrome Diabetes DVT (deep vein thrombosis) in Endometriosis Kidney stone SVT (supraventricular tachycardia) Uterine cancer Surgical History Surgical History H/O gastric bypass History of hysterectomy History of lobectomy of lung Right upper lobe History of tonsillectomy Social History Social History (Updated 08/07/21 @ 14:29 by Jackie Hirsch NP) Smoking packs per day: 0.5 Smoking cigarettes per day: 10.0 Years smoked: 31 Smoking pack-years: 15.50 Smoking status: Current every day smoker Tobacco type: cigarettes and e-cigarettes/vaping Alcohol intake: unknown Substance use: unknown Living arrangements: with friend(s) Gender identity (if verbalized by the patient): Female Comments At time of signature, agree with nursing past medical, surgical, social and family history. There is no relevant family history pertinent to the presenting complaint Exam Narrative: GENERAL: Well-appearing, well-nourished, and in no acute distress. HEAD: Normocephalic, atraumatic. E
== END 2021-08-06 12:44 | disposition home or self-care (01) ==
PROVIDERS: Emergency Provider Registered Nurse
DX: S93.401A Sprain of unspecified ligament of right ankle, initial encounter (principal); S96.911A Strain of unspecified muscle and tendon at ankle and foot level, right foot, initial encounter; W01.0XXA Fall on same level from slipping, tripping and stumbling without subsequent striking against object, initial encounter; F41.9 Anxiety disorder, unspecified; F32.A Depression, unspecified; J44.9 Chronic obstructive pulmonary disease, unspecified; E11.9 Type 2 diabetes mellitus without complications; Z86.718 Personal history of other venous thrombosis and embolism; N80.9 Endometriosis, unspecified; Z85.42 Personal history of malignant neoplasm of other parts of uterus; Z98.84 Bariatric surgery status; Z90.2 Acquired absence of lung [part of]; F17.210 Nicotine dependence, cigarettes, uncomplicated; F17.290 Nicotine dependence, other tobacco product, uncomplicated
CPT/HCPCS: 73610; 99213; G0463

== ENCOUNTER 2022-07-11 18:10 | Emergency (ER) | payer OTHER, SELFPAY ==
--- NOTE | ~2022-07-11 | CT_ITS ---
EXAMINATION: CT abdomen pelvis wo con DATE: 07/11/2022 22:02 INDICATION: periumbillical pain, bloody stools, 50 lb weight l TECHNIQUE: Computed tomography (CT) of the abdomen and pelvis was performed without intravenous contr ast. Automated exposure control and iterative reconstruction technique were employed. The dose-length product was 1235.16 mGy-cm. COMPARISON: 04/23/2021. FINDINGS: Lower thorax: Coronary artery calcifications. Liver: Enlarged liver. Biliary/Gallbladder: Gallbladder is normal. No bile duct dilation. Pancreas: No mass or duct dilation. Spleen: Normal. Adrenals:No mass. Kidneys: Punctate calcification in the right midpole. No mass, obstructing stone, or hydronephrosis. GI tract: Gastric bypass surgery. Interval dilation of the small bowel anastomosis, without proximal obstruction. No small or large bowel dilation. Normal appendix. Diverticulosis without diverticulitis . Mesentery/Peritoneum: No ascites, mass, or free air. Retroperitoneum: No mass. Atherosclerotic abdominal aortic and/or arterial calcifications. Pelvis: Surgically absent uterus. Normal appearing urinary bladder. Soft Tissues: Soft tissues and body wall unremarkable. Bones: No acute osseous finding. IMPRESSION: No acute abdominopelvic process detected. Chronic and incidental findings detailed above. Reviewed, dictated and finalized at location K. RAM SPECIALIST IMPRESSION: No acute abdominopelvic process detected. Chronic and incidental findings detai led above.
[2022-07-11 18:35] VITALS: BP 152/68; PULSE 87; RESP 20; TEMP 36.8; O2SAT 100
--- NOTE | 2022-07-11 21:40 | ED.GIBLEED ---
HPI - GI Bleed General Chief complaint: GI Bleed Stated complaint: abdominal pain, blood in stool, dizziness on stand Time Seen by Provider: 07/11/22 21:28 History of Present Illness HPI Narrative: Patient is a 42-year-old female with a history of uterine cancer, colonic polyps, diverticulosis, here for evaluation of blood in her stools and crampy abdominal pain over the past 2 weeks. She reports bright red blood mixed on the side of her stool and also noted in the toilet bowl. Also notes several dark looking stools but is on iron supplements. Her abdominal pain is in her periumbilical region and is described as a cramping pain. Denies history of previous. Patient has seen her primary care doctor for this issue, was told she had hemorrhoids, reportedly her Hemoccult was positive and she was referred to a GI doctor. She has an appointment at the end of July but decided to come to the ED today because she noticed some postural lightheadedness. Related Data Home Medications Medication Instructions Recorded Confirmed multivit with minerals-iron 18 1 tablet PO DAILY 09/22/19 08/06/21 mg-folic ac 400 mcg-vit K 25 mcg tablet (Adults Multivitamin) sertraline 100 mg tablet 100 mg PO DAILY 08/06/21 08/06/21 Allergies Allergy/AdvReac Type Severity Reaction Status Date / Time fentanyl Allergy Severe Stopped Verified 08/06/21 11:18 Breathing ciprofloxacin Allergy Mild RASH Verified 08/06/21 11:18 codeine Allergy Mild SEVERE Verified 08/06/21 11:18 DROWSINESS venom-honey bee Allergy Mild RASH Verified 08/06/21 11:18 levofloxacin Allergy Unknown Unknown Verified 08/06/21 11:18 Sulfa (Sulfonamide Allergy Unknown Unknown Verified 08/06/21 11:18 Antibiotics) propofol AdvReac Severe seizures Verified 08/06/21 11:18 CEFTRIAXONE SODIUM Allergy Severe Anaphylactic Uncoded 04/23/21 23:25 Shock Contrast Media Allergy Intermediate Hives / Uncoded 04/23/21 23:25 Red Face Review of Systems Review of Systems: Gen.: Denies fevers or chills Eyes: Denies eye pain or visual change ENT: Denies congestion Respiratory: Denies shortness of breath or cough CV: Denies chest pain or palpitations GI: Reports abdominal pain, bloody diarrhea denies burning, urgency, frequency or hematuria Musculoskeletal: Denies back pain or muscle pain Neuro: Denies numbness, tingling, weakness or focal weakness Skin: Denies rash Except as documented, all other systems reviewed and negative PMFSH Past Medical History Medical History Anxiety Anxiety and depression Asthma COPD (chronic obstructive pulmonary disease) Cyclic vomiting syndrome Diabetes DVT (deep vein thrombosis) in Endometriosis Kidney stone SVT (supraventricular tachycardia) Uterine cancer Surgical History Surgical History H/O gastric bypass History of hysterectomy History of lobectomy of lung Right upper lobe History of tonsillectomy Social History Social History (Updated 08/07/21 @ 14:29 by Jackie Hirsch NP) Smoking packs per day: 0.5 Smoking cigarettes per day: 10.0 Years smoked: 31 Smoking pack-years: 15.50 Smoking status: Current every day smoker Tobacco type: cigarettes and e-cigarettes/vaping Alcohol intake: unknown Substance use: unknown Gender identity (if verbalized by the patient): Female Exam Narrative: APPEARANCE: Well appearing, no pain in distress, well-nourished. Head: Normocephalic and atraumatic. EYES: PERRLA/EOMI, conjunctivae clear NOSE: No nasal drainage EARS: External ear normal in appearance THROAT: Oropharynx is clear. Mucous membranes are moist. NECK: Supple. No adenopathy, no masses. RESPIRATORY: Airway patent, respirations nonlabored. Clear to auscultation bilaterally, no rales, rhonchi, wheezing. CARDIOVASCULAR: Regular rate and rhythm without murmurs, rubs, or nava
[2022-07-11 22:03] LABS: Hematocrit 34.3 % (37.0-47.0); Hemoglobin 10.2 g/dL (12.0-15.0); Mean Corpuscular HGB Conc 29.7 g/dl (32-36); Mean Corpuscular Hemoglobin 23.2 pg (26-34); Mean Corpuscular Volume 78.1 fl (80-100); Mean Platelet Volume 9.8 fl (7.4-10.4); Platelet Count Result 373 k/mm3 (150-375); Red Blood Count 4.39 M/mm3 (4.2-5.4); White Blood Count 5.2 K/mm3 (4.5-10.0)
[2022-07-11 22:12] LABS: Alanine Aminotransferase 21 U/L (6-35); Albumin Level 4.1 g/dL (3.5-5.1); Alkaline Phosphatase 84 U/L (38-126); Anion Gap 3 mmol/L (8-16); Aspartate Amino Transferase 27 U/L (14-36); Bilirubin,Total 0.3 mg/dL (0.2-1.3); Blood Urea Nitrogen 15 mg/dL (7-17); Calcium 8.7 mg/dL (8.4-10.2); Carbon Dioxide 28 mmol/L (22-30); Chloride 104 mmol/L (98-107); Estimated CRCL calculation 128 ml/min; Estimated Glomerular Filt Rate > 60; Glucose 79 mg/dL (65-110); Sodium 135 mmol/L (137-145)
[2022-07-11 22:14] LABS: Prothrombin Time 12.7 Seconds (11.1-14.7)
[2022-07-11 22:15] LABS: Partial Thromboplastin Time 25.3 SECONDS (22.3-36.8)
[2022-07-11 22:21] LABS: Lipase 99 U/L (23-300)
[2022-07-11 22:53] LABS: Neutrophils Percent Manual 51 % (46-73); Total Cells Counted 100
[2022-07-11 22:54] LABS: Band Neutrophils Percent 11 % (0-6); Eosinophils Percent Manual 4 % (0-4); Hypersegmented Neutrophils Present; Large Platelets Present; Lymphocytes Absolute Manual 1.56 K/mm3 (1.1-4.5); Lymphocytes Percent Manual 30 % (18-44); Monocytes Absolute Manual 0.15 K/mm3 (0.1-0.90); Monocytes Percent Manual 3 % (3-9); Myelocytes Percent 1 %; Neutrophils Absolute Manual 3.22 K/mm3 (1.7-7.2); Platelet Estimate Adequate (Adequate); Smudge Cells FEW
[2022-07-11 22:55] LABS: Anisocytosis 2+ (NORMAL); Hypochromasia 1+ (NORMAL); Macrocytosis 1+ (NORMAL); Microcytosis 2+ (NORMAL); Poikilocytosis 2+ (NORMAL)
[2022-07-11 22:56] LABS: Burr Cells 1+ (NORMAL); Ovalocytes 1+ (NORMAL); Stomatocytes 1+ (NORMAL)
[2022-07-11 22:57] LABS: Atypical Lymphocytes Present; Schistocytes 1+ (NORMAL)
[2022-07-11] MEDS: MAG HYDROX/AL HYDROX/SIMETH 30 ML UDC PO (23:47)
== END 2022-07-12 00:15 | disposition home or self-care (01) ==
PROVIDERS: Emergency Medicine; Emergency Provider Emergency Medicine
DX: K64.4 Residual hemorrhoidal skin tags (principal); J44.9 Chronic obstructive pulmonary disease, unspecified; E11.9 Type 2 diabetes mellitus without complications; Z86.718 Personal history of other venous thrombosis and embolism; N80.9 Endometriosis, unspecified; F41.9 Anxiety disorder, unspecified; F32.A Depression, unspecified; Z85.42 Personal history of malignant neoplasm of other parts of uterus; Z86.010 Personal history of colon polyps; Z87.442 Personal history of urinary calculi; Z98.84 Bariatric surgery status; Z90.710 Acquired absence of both cervix and uterus; Z90.2 Acquired absence of lung [part of]; F17.210 Nicotine dependence, cigarettes, uncomplicated; F17.290 Nicotine dependence, other tobacco product, uncomplicated
CPT/HCPCS: 36415; 74176; 80053; 81025; 83690; 85025; 85610; 85730; 86850; 86900; 86901; 99284; A9270

== ENCOUNTER 2022-07-19 10:59 | Outpatient (CLI) | payer OTHER, SELFPAY ==
[2022-07-19 12:03] LABS: Erythrocyte Sedimentation Rate 5 mm/hr (0-20)
[2022-07-19 13:05] LABS: Folic Acid 13.1 ng/mL (2.76->20)
[2022-07-23 20:15] LABS: Tissue Transglutaminase IgA Ab <1.0 U/mL (<15.0)
[2022-07-24 07:26] LABS: Tissue Transglutaminase IgG Ab <1.0 U/mL (<15.0)
== END 2022-07-19 11:00 | disposition home or self-care (01) ==
LOC: ANHLAB 11:01
PROVIDERS: PCP Family Medicine; Visit Provider Nurse Practitioner
DX: D50.9 Iron deficiency anemia, unspecified (principal); R63.4 Abnormal weight loss; K92.1 Melena; R10.33 Periumbilical pain; R10.811 Right upper quadrant abdominal tenderness; R11.2 Nausea with vomiting, unspecified; Z85.42 Personal history of malignant neoplasm of other parts of uterus; Z98.84 Bariatric surgery status; Z90.2 Acquired absence of lung [part of]
CPT/HCPCS: 36415; 82607; 82746; 83516; 84443; 85652; 86140

== ENCOUNTER 2022-08-14 00:27 | Day surgery (SDC) | payer OTHER, SELFPAY ==
[2022-07-31 12:05] VITALS: BMI 27.5
[2022-08-14 10:35] VITALS: BP 130/75; PULSE 67; RESP 18; TEMP 36.3; O2SAT 98; BMI 28.1
[2022-08-14] MEDS: LACTATED RINGERS 1,000 ML 150 ML IV CONT (11:02)
--- NOTE | 2022-08-14 11:08 | WPDANESEPPF ---
Anes - Initial Pre Proc Eval Procedure: Operation Date: 08/14/22 12:30 Proposed Procedures p Esophagogastroduodenoscopy & Colonoscopy - Neville Paz MD Date/Time: 08/14/22 11:08 Surgeon: Neville Paz MD Pre Op Diagnosis: EMRE, N&V, abnormal weight loss Patient Data Age: 42 Gender: F Height: 1.88 m Weight: 99.6 kg Last Vital Signs Temp 97.3 F L 08/14/22 10:35 Pulse 67 08/14/22 10:35 Resp 18 08/14/22 10:35 BP 130/75 08/14/22 10:35 Pulse Ox 98 08/14/22 10:35 O2 Del Method Room Air 08/14/22 10:35 Allergies Allergy/AdvReac Type Severity Reaction Status Date / Time ceftriaxone Allergy Severe Anaphylactic Verified 08/14/22 10:46 Shock fentanyl Allergy Severe Stopped Verified 08/14/22 10:46 Breathing Iodinated Contrast Media Allergy Intermediate Hives/RED Verified 08/14/22 10:46 FACE ciprofloxacin Allergy Mild RASH Verified 08/14/22 10:46 codeine Allergy Mild SEVERE Verified 08/14/22 10:46 DROWSINESS venom-honey bee Allergy Mild RASH Verified 08/14/22 10:46 levofloxacin Allergy Unknown Unknown Verified 08/14/22 10:46 Sulfa (Sulfonamide Allergy Unknown Unknown Verified 08/14/22 10:46 Antibiotics) propofol AdvReac Severe seizures Verified 08/14/22 10:46 Home Medications Medication Instructions Recorded Confirmed Type multivit with minerals-iron 18 1 tablet PO DAILY 09/22/19 08/14/22 History mg-folic ac 400 mcg-vit K 25 mcg tablet (Adults Multivitamin) ferrous sulfate 250 mg (50 mg 250 mg PO BID 07/19/22 08/14/22 History iron) tablet,extended release esomeprazole magnesium 40 mg 40 mg PO DAILY 1 month #30 caps 07/23/22 08/14/22 Rx capsule,delayed release (Nexium) dicyclomine 20 mg tablet 20 mg PO DAILY 07/31/22 08/14/22 History naproxen 500 mg tablet 500 mg PO DAILY 07/31/22 08/14/22 History Patient hx anesthesia problems: none Family hx anesthesia problems: none Results Review: All pre-operative results and documents have been reviewed as part of the pre-operative evaluation. [facility] Past Medical History Medical History (Updated 07/19/22 @ 11:43 by Darline Hall APRN) Abnormal weight loss Anxiety Anxiety and depression Asthma COPD (chronic obstructive pulmonary disease) Cyclic vomiting syndrome Diabetes DVT (deep vein thrombosis) in Endometriosis Hematochezia Hx of malignant neoplasm of uterine body Kidney stone Microcytic anemia Nausea and vomiting Periumbilical abdominal pain RUQ abdominal tenderness SVT (supraventricular tachycardia) Tobacco user Uterine cancer Surgical History Surgical History (Updated 07/19/22 @ 10:41 by Darline Hall APRN) H/O gastric bypass History of hysterectomy History of lobectomy of lung Right upper lobe History of tonsillectomy Social History Social History Smoking packs per day: 0.5 Smoking cigarettes per day: 10.0 Years smoked: 31 Smoking pack-years: 15.50 Smoking status: Current every day smoker Tobacco type: cigarettes Alcohol intake: unknown Substance use: unknown Living arrangements: with family Gender identity (if verbalized by the patient): Female Anes - Eval Final PreProcedure Day of Procedure 08/14/22 11:08 Patient weight: obese Heart: regular rate and rhythm Lungs: clear to auscultation Airway: Mallampati scale class II Neurological: alert and oriented Last oral intake: >/= 8 hours ASA classification: III Emergent: no Anesthetic plan: proceed Anesthesia type and monitoring: general GIVS and standard monitoring Results Review: All pre-operative results and documents have been reviewed as part of the pre-operative evaluation. Informed Consent: The patient's anesthetic plan and its attendant risks and benefits were discussed with the patient/family/POA. Questions were solicited and answers provided to the satisfaction of the patient/family/POA.
--- NOTE | 2022-08-14 11:14 | WPDHPUPDATE1 ---
History and Physical Update Update Date/Time: 08/14/22 11:14 History and Physical has been reviewed, including an updated exam of the patient. There are NO changes in the patient's condition. Risks, benefits, and alternatives have been discussed and questions answered. Patient agrees to proceed with procedure.
--- NOTE | 2022-08-14 11:28 | SUR.OPER ---
EGD: start 112, end 1126, Colon: start 1132, end 1145
[2022-08-14 11:48] VITALS: BP 100/68; PULSE 56; RESP 20; O2SAT 100
[2022-08-14 11:58] VITALS: BP 109/68; PULSE 56; RESP 20; O2SAT 100
--- NOTE | 2022-08-14 12:00 | SUR.PHASEII ---
Patient c/o sharp, shooting chest pains to left chest. Patient denies shortness of breath. VSS. O2 sat 99% on room air. VS 130s/90s. HR 60s and normal sinus rhythm. Notified Dr. Scott of c/o chest pain. He states he will come and assess patient shortly.
[2022-08-14 12:08] VITALS: BP 146/88; PULSE 58; RESP 17; O2SAT 100
--- NOTE | 2022-08-14 12:10 | SUR.PHASEII ---
Dr. Scott here assessing patient. Patient continues to c/o chest pain without resolution. VS 140s/80s. HR 60s and normal sinus rhythm noted. O2 sat 95% on room air. Seizure precautions continue and no distress noted other than patient crying and c/o continued chest pain to left side of chest. No dypnea noted.
--- NOTE | 2022-08-14 12:14 | SUR.PHASEII ---
Patient to be evaluated in the Emergency department for c/o chest pain.
--- NOTE | 2022-08-14 12:27 | SUR.PHASEII ---
Patient transported via stretcher to emergency department for further evaluation of chest pain. Gave report to ED nurse.
== END 2022-08-14 12:17 | disposition home or self-care (01) ==
PROVIDERS: PCP Family Medicine; Visit Provider Internal Medicine Gastroenterology
PROC: 0DJ08ZZ Inspection of Upper Intestinal Tract, Via Natural or Artificial Opening Endoscopic (ICD-10-PCS; CPT 43235; principal; 2022-08-14 12:30)
DX: Z12.11 Encounter for screening for malignant neoplasm of colon (principal); D50.9 Iron deficiency anemia, unspecified; K92.1 Melena; F17.210 Nicotine dependence, cigarettes, uncomplicated; E66.9 Obesity, unspecified; Z68.28 Body mass index [BMI] 28.0-28.9, adult; Z98.84 Bariatric surgery status
CPT/HCPCS: 45378; 43239; 88305; J2704; J7120

== ENCOUNTER 2022-08-14 12:22 | Emergency (ER) | payer OTHER, SELFPAY ==
--- NOTE | 2022-08-14 12:24 | ECG_ITS ---
Measurements Intervals Casa Rate: 62 P: 39 MS: 183 QRS: 28 QRSD: 102 T: 52 QT: 393 QTc: 401 Interpretive Statements SINUS RHYTHM BASELINE ARTIFACT- I, II, III, AVR, AVL, AVF, V3-V5 NORMAL ECG COMPARED TO ECG 09/13/2020 01:41:11 NO SIGNIFICANT CHANGES Electronically Signed On 08-14-2022 13:01:42 CHAINSTITCH ELASTIC ATTACHER by Justice Caldwell D.O.
[2022-08-14 12:25] VITALS: BP 134/75; PULSE 61; RESP 17; TEMP 36.6; O2SAT 99
[2022-08-14 12:35] VITALS: PULSE 51; O2SAT 100
--- NOTE | 2022-08-14 13:07 | PC.NURSE ---
Patient refusing chest x-ray. States I am not going until I have pain medications.
--- NOTE | 2022-08-14 13:14 | PC.NURSE ---
Per EDP, no aspirin needed.
--- NOTE | 2022-08-14 13:15 | PC.NURSE ---
Patient rolling in bed, removing equipment monitor phototypesetting. This RN attempted to hook patient back up to equipment monitor phototypesetting and patient states you are not moving me until you get a doctor in here. Patient educated on the need to monitor heart rhythm but states then you better get a doctor in here. LV Chung notified.
--- NOTE | 2022-08-14 13:19 | PC.NURSE ---
Patient continues to refuse lab drawn. LV Chung aware.
--- NOTE | 2022-08-14 13:21 | ED.CHESTPAIN ---
HPI - Chest Pain General Chief Complaint: Chest Pain Stated Complaint: Unspecified Time Seen by Provider: 08/14/22 12:25 History of Present Illness HPI narrative: Patient is a 42-year-old female with a history of GERD, gastric bypass, anemia presenting with left-sided chest pain. Patient was in the GI Lab this morning for an EGD. Upon awakening from anesthesia, the patient started complaining of left-sided chest pain. She states that it feels like a muscle spasm that will not relax. She states that applying pressure and laying on it helps with the pain. She denies dyspnea, diaphoresis, nausea. She denies lightheadedness or palpitations. She denies further complaints or symptoms. Related Data Home Medications Medication Instructions Recorded Confirmed multivit with minerals-iron 18 1 tablet PO DAILY 09/22/19 08/14/22 mg-folic ac 400 mcg-vit K 25 mcg tablet (Adults Multivitamin) ferrous sulfate 250 mg (50 mg 250 mg PO BID 07/19/22 08/14/22 iron) tablet,extended release dicyclomine 20 mg tablet 20 mg PO DAILY 07/31/22 08/14/22 naproxen 500 mg tablet 500 mg PO DAILY 07/31/22 08/14/22 Allergies Allergy/AdvReac Type Severity Reaction Status Date / Time ceftriaxone Allergy Severe Anaphylactic Verified 08/14/22 10:46 Shock fentanyl Allergy Severe Stopped Verified 08/14/22 10:46 Breathing Iodinated Contrast Media Allergy Intermediate Hives/RED Verified 08/14/22 10:46 FACE ciprofloxacin Allergy Mild RASH Verified 08/14/22 10:46 codeine Allergy Mild SEVERE Verified 08/14/22 10:46 DROWSINESS venom-honey bee Allergy Mild RASH Verified 08/14/22 10:46 levofloxacin Allergy Unknown Unknown Verified 08/14/22 10:46 Sulfa (Sulfonamide Allergy Unknown Unknown Verified 08/14/22 10:46 Antibiotics) propofol AdvReac Severe seizures Verified 08/14/22 10:46 Review of Systems Review of Systems: All systems reviewed & are unremarkable except as noted in HPI and below PMFSH Past Medical History Medical History Abnormal weight loss Anxiety Anxiety and depression Asthma COPD (chronic obstructive pulmonary disease) Cyclic vomiting syndrome Diabetes DVT (deep vein thrombosis) in Endometriosis Hematochezia Hx of malignant neoplasm of uterine body Kidney stone Microcytic anemia Nausea and vomiting Periumbilical abdominal pain RUQ abdominal tenderness SVT (supraventricular tachycardia) Tobacco user Uterine cancer Surgical History Surgical History H/O gastric bypass History of hysterectomy History of lobectomy of lung Right upper lobe History of tonsillectomy Social History Social History Smoking packs per day: 0.5 Smoking cigarettes per day: 10.0 Years smoked: 31 Smoking pack-years: 15.50 Smoking status: Current every day smoker Tobacco type: cigarettes Alcohol intake: unknown Substance use: unknown Gender identity (if verbalized by the patient): Female Exam Narrative: GENERAL: Well-appearing, well-nourished, and in no acute distress. HEAD: Normocephalic, atraumatic. EYES: PERRLA and EOMI. ENT: Nares clear, no rhinorrhea or epistaxis. Mucous membranes moist. NECK: Supple. CHEST: Clear to auscultation. No respiratory distress. HEART: Regular rate and rhythm. No murmur heard. Normal peripheral pulses. upper lateral left chest wall is location of pain, pt states pain improves with palpation ABDOMEN: Soft, nontender, nondistended, normal active bowel sounds. EXTREMITIES: Normal range of motion. No edema. SKIN: Warm, dry, no rash. NEURO: No focal deficits. Alert and oriented x3. PSYCH: Normal mood and affect. Course Vital Signs Vital signs: Vital Signs Temperature 97.9 F 08/14/22 12:25 Pulse Rate 61 08/14/22 12:25 Respiratory Rate 17 08/14/22 12:25 Blood Pressure 134/75
[2022-08-14] MEDS: KETOROLAC 15 MG/ML VIAL (*BKC) IV PUSH (13:28)
--- NOTE | 2022-08-14 13:35 | PC.NURSE ---
Patient refusing IV Tylenol, reports you're not injecting that into me, that makes me sick to my stomach.
--- NOTE | 2022-08-14 13:43 | PC.NURSE ---
Following Toradol administration, patient states I am done with this hospital I am going to a different one. LV Chung was notified and patient signed AMA paperwork.
== END 2022-08-14 13:49 | disposition left against medical advice (07) ==
LOC: ANHED 12:30
PROVIDERS: Emergency Provider Emergency Medicine; PCP Family Medicine
DX: R07.9 Chest pain, unspecified (principal); F41.9 Anxiety disorder, unspecified; F32.9 Major depressive disorder, single episode, unspecified; J44.9 Chronic obstructive pulmonary disease, unspecified; Z87.442 Personal history of urinary calculi; K21.9 Gastro-esophageal reflux disease without esophagitis
CPT/HCPCS: 93005; 96374; 99284; J1885

== ENCOUNTER 2022-10-31 11:12 | Emergency (ER) | payer OTHER, SELFPAY ==
[2022-10-31 11:19] VITALS: BP 142/66; PULSE 94; RESP 20; TEMP 36.3; O2SAT 99
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
== END 2022-10-31 12:35 | disposition home or self-care (01) ==
PROVIDERS: Emergency Provider Registered Nurse
DX: M54.2 Cervicalgia (principal); R51.9 Headache, unspecified; F17.210 Nicotine dependence, cigarettes, uncomplicated; J44.9 Chronic obstructive pulmonary disease, unspecified; E11.9 Type 2 diabetes mellitus without complications; Z86.718 Personal history of other venous thrombosis and embolism; N80.9 Endometriosis, unspecified; Z98.84 Bariatric surgery status; Z90.2 Acquired absence of lung [part of]; F41.9 Anxiety disorder, unspecified; F32.A Depression, unspecified
CPT/HCPCS: 99213; G0463

== ENCOUNTER 2023-11-29 20:32 | Emergency (ER) | payer OTHER, SELFPAY ==
[2023-11-29 20:36] VITALS: BP 127/90; PULSE 106; RESP 20; TEMP 36.6; O2SAT 98
--- NOTE | 2023-11-29 20:45 | ECG_ITS ---
SEE SCANNED COPY FOR CONFIRMED REPORT MTDD
--- NOTE | 2023-11-29 21:34 | ED.GENADULT ---
HPI - General Adult General Chief complaint: Back Pain/Injury Stated complaint: Back pain, need referal for seconday DrModesto Ojeda Seen by Provider: 11/29/23 20:44 History of Present Illness HPI narrative: This is a 43-year-old female pod 9 from a L4-L5-S1 laminectomy performed by Dr. Skelton at [facility] presenting for postop pain. She was having some swelling her surgical site and sent to interventional radiologist this morning. The Interventional Radiologist not believe that the hematoma was amenable to drainage at this time and plan was to wait and see. Patient is here today because she has had increased pain and does not have any more opiate pain medication. patient having pain at the site radiates down her legs. No neurologic deficits heard weakness urinary retention bowel incontinence or saddle anesthesia. No fevers chills. Related Data Home Medications Medication Instructions Recorded Confirmed multivit with minerals-iron 18 1 tablet PO DAILY 09/22/19 10/31/22 mg-folic ac 400 mcg-vit K 25 mcg tablet (Adults Multivitamin) ferrous sulfate 250 mg (50 mg 250 mg PO BID 07/19/22 10/31/22 iron) tablet,extended release hydrocodone 7.5 mg-acetaminophen See Rx Instructions .Route 10/31/22 10/31/22 325 mg tablet .COMPLEX PRN Pain sertraline 100 mg tablet 100 mg PO DAILY 10/31/22 10/31/22 Allergies Allergy/AdvReac Type Severity Reaction Status Date / Time ceftriaxone Allergy Severe Anaphylactic Verified 10/31/22 11:25 Shock fentanyl Allergy Severe Stopped Verified 10/31/22 11:25 Breathing Iodinated Contrast Media Allergy Intermediate Hives/RED Verified 10/31/22 11:25 FACE ciprofloxacin Allergy Mild RASH Verified 10/31/22 11:25 codeine Allergy Mild SEVERE Verified 10/31/22 11:25 DROWSINESS venom-honey bee Allergy Mild RASH Verified 10/31/22 11:25 levofloxacin Allergy Unknown Unknown Verified 10/31/22 11:25 Sulfa (Sulfonamide Allergy Unknown Unknown Verified 10/31/22 11:25 Antibiotics) propofol AdvReac Severe seizures Verified 10/31/22 11:25 [facility] Past Medical History Medical History (Updated 11/29/23 @ 21:47 by Nicolas Lucia MD) Abnormal weight loss Anxiety Anxiety and depression Asthma COPD (chronic obstructive pulmonary disease) Cyclic vomiting syndrome Diabetes DVT (deep vein thrombosis) in Endometriosis Hematochezia Hx of malignant neoplasm of uterine body Kidney stone Microcytic anemia Nausea and vomiting Periumbilical abdominal pain RUQ abdominal tenderness SVT (supraventricular tachycardia) Tobacco user Uterine cancer Surgical History Surgical History (Updated 11/29/23 @ 21:47 by Nicolas Lucia MD) H/O gastric bypass (~11/29/23) History of hysterectomy History of lobectomy of lung Right upper lobe History of tonsillectomy Social History Social History Smoking packs per day: 0.5 Smoking cigarettes per day: 10.0 Years smoked: 31 Smoking pack-years: 15.50 Smoking status: Current every day smoker Tobacco type: cigarettes Alcohol intake: unknown Substance use: unknown Living arrangements: with family Gender identity (if verbalized by the patient): Female Exam Narrative: APPEARANCE: No apparent distress. Head: atraumatic. EYES: EOMI, NOSE: Atraumatic NECK: Trachea midline RESPIRATORY: No increased rate of breathing CARDIOVASCULAR: RRR, ABDOMINAL: Non-distended MUSCULOSKELETAl: No obvious deformities NEURO: Alert. Cranial nerves 2-12 grossly intact. Sensation light touch, motor function cerebellar function intact for 4 extremities. Gait exam was normal. SKIN:: Patient has a well-healed surgical scar over the lower back. Some swelling and tenderness over the upper portion of the insertion site without erythema cellulitic changes or fluctuance. PSYCHIATRIC: Normal affect Course Vital Signs Vital signs: Vital Signs Temperature 97.8 F 11/29/23 20
[2023-11-29] MEDS: HYDROmorphone HCL INJ (*CRX) 1 MG/ML SYR IM (21:43)
[2023-11-29 21:46] VITALS: BP 124/81; PULSE 76; RESP 18; O2SAT 97
== END 2023-11-29 22:05 | disposition home or self-care (01) ==
PROVIDERS: Emergency Provider Emergency Medicine
DX: G89.18 Other acute postprocedural pain (principal); J44.9 Chronic obstructive pulmonary disease, unspecified; E11.9 Type 2 diabetes mellitus without complications; F17.210 Nicotine dependence, cigarettes, uncomplicated; F41.9 Anxiety disorder, unspecified; F32.A Depression, unspecified; Z98.84 Bariatric surgery status; Z86.718 Personal history of other venous thrombosis and embolism; Z85.42 Personal history of malignant neoplasm of other parts of uterus; Z87.442 Personal history of urinary calculi; Z86.2 Personal history of diseases of the blood and blood-forming organs and certain disorders involving the immune mechanism; Z90.710 Acquired absence of both cervix and uterus; Z90.2 Acquired absence of lung [part of]
CPT/HCPCS: 93005; 96372; 99283; J1170

== ENCOUNTER 2023-11-30 16:12 | Emergency (ER) | payer OTHER, SELFPAY ==
--- NOTE | ~2023-11-30 | CT_ITS ---
EXAMINATION: CT lumbar spine wo con DATE: 11/30/2023 17:02 INDICATION: lumbar hematoma . TECHNIQUE: Computed tomography (CT) of the lumbar spine was performed without intravenous contrast. A utomated exposure control and iterative reconstruction technique were employed. The dose-length produ ct was 1441.24 mGy-cm. COMPARISON: CT abdomen pelvis 07/11/2022. FINDINGS: 5 nonrib-bearing lumbar-type vertebral bodies. Pedicles intact. Mild scoliosis. Normal vert ebral body alignment. Vertebral body heights preserved. Disc spaces maintained. Stable grade 1 ivet listhesis at L4-5. Multilevel degenerative disc disease, severe at L5-S1. Multilevel moderate lower l umbar facet arthropathy. Severe left L5-S1 neural foraminal narrowing, secondary to degenerative disc and facet change. No severe central canal narrowing. Mild anterior wedge deformity at L2. 5.8 cm mid line fluid collection, distinct from the normal lower lumbar subcutaneous edema that is commonly seen in this location. IMPRESSION: Acute versus chronic mild wedge compression deformity at L2, new since the comparison study from 2021 , correlate for pain/tenderness. 5.8 cm midline subcutaneous hematoma. Reviewed, dictated and finalized at location K. IMPRESSION: Acute versus chronic mild wedge compression deformity at L2, new since the [facility] study from 2021, correlate for pain/tenderness. 5.8 cm midline subcutaneous hematoma.
[2023-11-30 16:17] VITALS: BP 136/89; PULSE 77; RESP 20; TEMP 36.4; O2SAT 97
--- NOTE | 2023-11-30 16:31 | ED.BACK ---
HPI - Back Pain/Injury General Chief Complaint: Back Pain/Injury Stated Complaint: back pain/hematoma s/p spinal surgery Time Seen by Provider: 11/30/23 16:20 History of Present Illness HPI Narrative: 43-year-old female return to the emergency department for evaluation for back pain. Patient is postop day 11 from L4-L5 S1 laminectomy performed at [facility]. patient developed a hematoma at her surgical site and was sent to Interventional Radiology few days ago. Interventional radiology did not leave hematoma was amenable to drainage and plan was to wait and see. Patient is here today because she has had increased pain and does not have any more opiate pain medication. Patient does have pain at the site that radiates down her legs. Related Data Home Medications Medication Instructions Recorded Confirmed multivit with minerals-iron 18 1 tablet PO DAILY 09/22/19 10/31/22 mg-folic ac 400 mcg-vit K 25 mcg tablet (Adults Multivitamin) ferrous sulfate 250 mg (50 mg 250 mg PO BID 07/19/22 10/31/22 iron) tablet,extended release hydrocodone 7.5 mg-acetaminophen See Rx Instructions .Route 10/31/22 10/31/22 325 mg tablet .COMPLEX PRN Pain sertraline 100 mg tablet 100 mg PO DAILY 10/31/22 10/31/22 Allergies Allergy/AdvReac Type Severity Reaction Status Date / Time ceftriaxone Allergy Severe Anaphylactic Verified 10/31/22 11:25 Shock fentanyl Allergy Severe Stopped Verified 10/31/22 11:25 Breathing Iodinated Contrast Media Allergy Intermediate Hives/RED Verified 10/31/22 11:25 FACE ciprofloxacin Allergy Mild RASH Verified 10/31/22 11:25 codeine Allergy Mild SEVERE Verified 10/31/22 11:25 DROWSINESS venom-honey bee Allergy Mild RASH Verified 10/31/22 11:25 levofloxacin Allergy Unknown Unknown Verified 10/31/22 11:25 Sulfa (Sulfonamide Allergy Unknown Unknown Verified 10/31/22 11:25 Antibiotics) propofol AdvReac Severe seizures Verified 10/31/22 11:25 Review of Systems Review of Systems: All systems reviewed & are unremarkable except as noted in HPI and below PMFSH Past Medical History Medical History Abnormal weight loss Anxiety Anxiety and depression Asthma COPD (chronic obstructive pulmonary disease) Cyclic vomiting syndrome Diabetes DVT (deep vein thrombosis) in Endometriosis Hematochezia Hx of malignant neoplasm of uterine body Kidney stone Microcytic anemia Nausea and vomiting Periumbilical abdominal pain RUQ abdominal tenderness SVT (supraventricular tachycardia) Tobacco user Uterine cancer Surgical History Surgical History H/O gastric bypass (~11/29/23) History of hysterectomy History of lobectomy of lung Right upper lobe History of tonsillectomy Social History Social History Smoking packs per day: 0.5 Smoking cigarettes per day: 10.0 Years smoked: 31 Smoking pack-years: 15.50 Smoking status: Current every day smoker Tobacco type: cigarettes Alcohol intake: unknown Substance use: unknown Living arrangements: with family Gender identity (if verbalized by the patient): Female Exam Narrative: APPEARANCE: Well appearing, no pain, no distress, well-nourished. HEAD: normocephalic, atraumatic. EYES: PERRLA/EOMI, conjunctivae clear. NOSE: Normal no drainage EARS:TMS clear with good light reflex. THROAT: Pharynx clear, no exudate. NECK: Supple. No adenopathy, no masses. RESPIRATORY: Airway patent, respirations nonlabored. Clear to auscultation bilaterally, no rales, rhonchi, wheezing. CARDIOVASCULAR: Regular rate and rhythm without murmurs rubs or gallops. ABDOMINAL: Soft, nontender, nondistended, normal bowel sounds MUSCULOSKELETAL: Hematoma at lumbar spine, well appearing surgical incision with no overlying erythema, no purulent discharge and no overlying evidence of cellulitis. NEURO: A
[2023-11-30 17:01] LABS: Basophils Absolute Auto 0.1 K/mm3 (0.0-0.1); Basophils Percent Auto 0.8 % (0.2-1.2); Eosinophils Absolute Auto 0.3 K/mm3 (0-0.3); Eosinophils Percent Auto 4.1 % (0-4.4); Hematocrit 38.4 % (37.0-47.0); Hemoglobin 12.6 g/dL (12.0-15.0); Immature Granulocyte Absolute 0.02 K/mm3 (0.00-0.031); Immature Granulocyte Percent A 0.3 % (0-0.5); Lymphocytes Absolute Auto 1.87 K/mm3 (0.9-3.2); Lymphocytes Percent Auto 29.5 % (18.3-44.2); Mean Corpuscular HGB Conc 32.8 g/dl (32-36); Mean Corpuscular Hemoglobin 28.6 pg (26-34); Mean Corpuscular Volume 87.3 fl (80-100); Mean Platelet Volume 9.9 fl (7.4-10.4); Monocytes Absolute Auto 0.5 K/mm3 (0.1-0.6); Monocytes Percent Auto 7.4 % (2.6-8.5); Neutrophils Absolute Auto 3.7 K/mm3 (1.3-6.7); Neutrophils Percent Auto 57.9 % (45.5-73.1); Platelet Count Result 461 k/mm3 (150-375); Red Cell Distribution Width 13.3 % (11.5-14.5); White Blood Count 6.3 K/mm3 (4.5-10.0)
[2023-11-30 17:35] LABS: Lactic Acid Reflex 0.8 mmol/L (0.7-2.0)
[2023-11-30 17:41] LABS: INR 0.9; Prothrombin Time 12.4 Seconds (11.1-14.7)
[2023-11-30] MEDS: HYDROmorphone HCL INJ (*CRX) 1 MG/ML SYR IM (18:23)
[2023-11-30 18:28] VITALS: BP 121/84; PULSE 88; RESP 20; O2SAT 99
== END 2023-11-30 18:29 | disposition home or self-care (01) ==
PROVIDERS: Emergency Provider Emergency Medicine
DX: L76.32 Postprocedural hematoma of skin and subcutaneous tissue following other procedure (principal); J44.9 Chronic obstructive pulmonary disease, unspecified; E11.9 Type 2 diabetes mellitus without complications; F17.210 Nicotine dependence, cigarettes, uncomplicated; F41.9 Anxiety disorder, unspecified; F32.A Depression, unspecified; Z98.84 Bariatric surgery status; Z86.718 Personal history of other venous thrombosis and embolism; Z85.42 Personal history of malignant neoplasm of other parts of uterus; Z87.442 Personal history of urinary calculi; Z86.2 Personal history of diseases of the blood and blood-forming organs and certain disorders involving the immune mechanism; Z90.710 Acquired absence of both cervix and uterus; Z90.2 Acquired absence of lung [part of]
CPT/HCPCS: 36415; 72131; 83605; 85025; 85610; 85730; 96372; 99284; J1170

== ENCOUNTER 2023-11-30 23:24 | Emergency (ER) | payer OTHER, SELFPAY ==
[2023-11-30 23:31] VITALS: BP 151/95; PULSE 97; RESP 17; TEMP 36.3; O2SAT 97
--- NOTE | 2023-12-01 01:22 | ED.GENADULT ---
HPI - General Adult General Chief complaint: Wound/Laceration Stated complaint: back pain, open wound, seen earlier Time Seen by Provider: 12/01/23 01:14 History of Present Illness HPI narrative: This is a 43-year-old female approx 10 days out from a L4-L5-S1 laminectomy performed by Dr. Skelton at [facility]? presenting for postop pain. ? She was having some swelling her surgical site and sent to interventional radiologist this morning.? The Interventional Radiologist not believe that the hematoma was amenable to drainage at this time and plan was to wait and see.? Patient was seen here yesterday evening and then again today during the day and then eventually took an Exacto knife and opened the wound out self with drainage of significant pus. She is back here again because she was unable to fill her Dilaudid pain medication. No other symptoms. Related Data Home Medications Medication Instructions Recorded Confirmed multivit with minerals-iron 18 1 tablet PO DAILY 09/22/19 10/31/22 mg-folic ac 400 mcg-vit K 25 mcg tablet (Adults Multivitamin) ferrous sulfate 250 mg (50 mg 250 mg PO BID 07/19/22 10/31/22 iron) tablet,extended release hydrocodone 7.5 mg-acetaminophen See Rx Instructions .Route 10/31/22 10/31/22 325 mg tablet .COMPLEX PRN Pain sertraline 100 mg tablet 100 mg PO DAILY 10/31/22 10/31/22 Allergies Allergy/AdvReac Type Severity Reaction Status Date / Time ceftriaxone Allergy Severe Anaphylactic Verified 10/31/22 11:25 Shock fentanyl Allergy Severe Stopped Verified 10/31/22 11:25 Breathing Iodinated Contrast Media Allergy Intermediate Hives/RED Verified 10/31/22 11:25 FACE ciprofloxacin Allergy Mild RASH Verified 10/31/22 11:25 codeine Allergy Mild SEVERE Verified 10/31/22 11:25 DROWSINESS venom-honey bee Allergy Mild RASH Verified 10/31/22 11:25 levofloxacin Allergy Unknown Unknown Verified 10/31/22 11:25 Sulfa (Sulfonamide Allergy Unknown Unknown Verified 10/31/22 11:25 Antibiotics) propofol AdvReac Severe seizures Verified 10/31/22 11:25 [facility] Past Medical History Medical History Abnormal weight loss Anxiety Anxiety and depression Asthma COPD (chronic obstructive pulmonary disease) Cyclic vomiting syndrome Diabetes DVT (deep vein thrombosis) in Endometriosis Hematochezia Hx of malignant neoplasm of uterine body Kidney stone Microcytic anemia Nausea and vomiting Periumbilical abdominal pain RUQ abdominal tenderness SVT (supraventricular tachycardia) Tobacco user Uterine cancer Surgical History Surgical History H/O gastric bypass (~11/29/23) History of hysterectomy History of lobectomy of lung Right upper lobe History of tonsillectomy Social History Social History Smoking packs per day: 0.5 Smoking cigarettes per day: 10.0 Years smoked: 31 Smoking pack-years: 15.50 Smoking status: Current every day smoker Tobacco type: cigarettes Alcohol intake: unknown Substance use: unknown Living arrangements: with family Gender identity (if verbalized by the patient): Female Course Vital Signs Vital signs: Vital Signs Temperature 97.4 F L 11/30/23 23:31 Pulse Rate 97 11/30/23 23:31 Respiratory Rate 17 11/30/23 23:31 Blood Pressure 151/95 H 11/30/23 23:31 Pulse Oximetry 97 11/30/23 23:31 Oxygen Delivery Room Air 11/30/23 23:31 Temperature 97.4 F L 11/30/23 23:31 Pulse Rate 97 11/30/23 23:31 Respiratory Rate 17 11/30/23 23:31 Blood Pressure 151/95 H 11/30/23 23:31 Pulse Oximetry 97 11/30/23 23:31 Oxygen Delivery Room Air 11/30/23 23:31 Medical Decision Making [facility] Narrative Medical decision making narrative: -Course: 43-year-old female back to ED for postop pain. Patient is requesting I sent her Dilaudid prescription to [facility]
[2023-12-01] MEDS: HYDROmorphone HCL INJ (*CRX) 1 MG/ML SYR IM (01:32)
== END 2023-12-01 01:39 | disposition home or self-care (01) ==
PROVIDERS: Emergency Provider Emergency Medicine
DX: G89.18 Other acute postprocedural pain (principal); M54.50 Low back pain, unspecified; Z76.5 Malingerer [conscious simulation]; J44.9 Chronic obstructive pulmonary disease, unspecified; E11.9 Type 2 diabetes mellitus without complications; F17.210 Nicotine dependence, cigarettes, uncomplicated; F41.9 Anxiety disorder, unspecified; F32.A Depression, unspecified; Z98.84 Bariatric surgery status; Z86.718 Personal history of other venous thrombosis and embolism; Z85.42 Personal history of malignant neoplasm of other parts of uterus; Z87.442 Personal history of urinary calculi; Z86.2 Personal history of diseases of the blood and blood-forming organs and certain disorders involving the immune mechanism; Z90.710 Acquired absence of both cervix and uterus; Z90.2 Acquired absence of lung [part of]
CPT/HCPCS: 96372; 99283; J1170

== ENCOUNTER 2023-12-21 17:59 | Observation (INO) | payer OTHER, SELFPAY ==
[2023-12-21] VITALS (10 sets, daily range): BP systolic 106–161; BP diastolic 56–108; PULSE 73–130; RESP 14–20; TEMP 36.4–37.1; O2SAT 95–98; BMI 30.2
[2023-12-21] MEDS: PANTOPRAZOLE SODIUM IV 40 MG VIAL IV PUSH (18:18)
[2023-12-21] MEDS: ONDANSETRON INJ 4 MG/2 ML VIAL IV PUSH (18:19)
--- NOTE | 2023-12-21 18:21 | ED.NAVMDI ---
HPI - Nausea/Vomiting/Diarrhea General Chief complaint: Nausea/Vomiting/Diarrhea <Lissette Booker PA-C - Last Filed: 12/22/23 20:15> Stated complaint: vomiting blood <SHYANNE Gates Last Filed: 12/22/23 20:15> Time Seen by Provider: 12/21/23 18:01 <SHYANNE Gates Last Filed: 12/22/23 20:15> Source: patient <SHYANNE Gates Last Filed: 12/22/23 20:15> Mode of arrival: ambulatory <SHYANNE Gates Last Filed: 12/22/23 20:15> Limitations: no limitations <SHYANNE Gates Last Filed: 12/22/23 20:15> History of Present Illness HPI Narrative: This is a 43-year-old female that presents to the emergency department for hematemesis. Reports she is currently undergoing antibiotic therapy for osteomyelitis after recent spinal surgery. Reports she has been experiencing continued back pain and had her pain medication changed recently. She is now taking Oxycodone and this has made her very nauseas. She has been vomiting since taking it and today she has had streaks of bright red blood in her vomit. Reports history of gastric ulcers, she is not currently taking her PPI and is taking Naproxen for pain. Denies fevers or abdominal pain. <Lissette Booker PA-C - Last Filed: 12/22/23 20:15> Related Data Home medications: Home Medications Medication Instructions Recorded Confirmed albuterol sulfate 2.5 mg/3 mL 2.5 mg inhalation Q3H 12/21/23 12/21/23 (0.083 %) solution for nebulization albuterol sulfate 90 mcg/actuation 2 puff inhalation Q4H wheezing 12/21/23 12/21/23 aerosol inhaler carbamazepine 100 mg 200 mg PO BID 12/21/23 12/21/23 capsule,extended release [id number] cefepime 1 gram intravenous 2 g IV Q8H 12/21/23 12/21/23 piggyback cyclobenzaprine 10 mg tablet 10 mg PO TID PRN Muscle Spasm 12/21/23 12/21/23 lisinopril 10 mg tablet 5 mg PO DAILY 12/21/23 12/21/23 metronidazole 500 mg tablet 500 mg PO Q8H 12/21/23 12/21/23 ondansetron 4 mg disintegrating 4 mg PO Q6H PRN Nausea And Vomiting 12/21/23 12/21/23 tablet vancomycin 1 gram/100 mL in 0.9 % 1 g IV Q12H 12/21/23 12/21/23 sodium chloride intravenous solution <SHYANNE Gates Last Filed: 12/22/23 20:15> Allergies/Adverse reactions: Allergies Allergy/AdvReac Type Severity Reaction Status Date / Time ceftriaxone Allergy Severe Anaphylactic Verified 12/21/23 18:12 Shock fentanyl Allergy Severe Stopped Verified 12/21/23 18:12 Breathing Iodinated Contrast Media Allergy Intermediate Hives/RED Verified 12/21/23 18:12 FACE ciprofloxacin Allergy Mild RASH Verified 12/21/23 18:12 codeine Allergy Mild SEVERE Verified 12/21/23 18:12 DROWSINESS venom-honey bee Allergy Mild RASH Verified 12/21/23 18:12 levofloxacin Allergy Unknown Unknown Verified 12/21/23 18:12 Sulfa (Sulfonamide Allergy Unknown Unknown Verified 12/21/23 18:12 Antibiotics) propofol AdvReac Severe seizures Verified 12/21/23 18:12 <SHYANNE Gates Last Filed: 12/22/23 20:15> Review of Systems Review of Systems: CONSTITUTIONAL: Denies fever GASTROINTESTINAL: Reports nausea and vomiting. Denies abdominal pain, diarrhea. <SHYANNE Gates Last Filed: 12/22/23 20:15> All systems reviewed & are unremarkable except as noted in HPI and below <SHYANNE Gates Last Filed: 12/22/23 20:15> [facility] Past Medical History Medical History: Medical History (Updated 12/22/23 @ 12:32 by Neville Paz MD) Acute blood loss anemia Anxiety and depression Asthma Chronic obstructive pulmonary disease Deep venous thrombosis Diet-controlled type 2 diabetes mellitus Endometriosis Kidney stone NSAID long-term use Osteomyelitis of lumbar spine Seizures Tobacco user Uterine cancer <SHYANNE Gates Last Filed: 12/22/23 20:15> Surgical History Surgical History: Surgical History (Updated 12/21/23 @ 21:01 by Jana Harrington PA-C) History
[2023-12-21 18:25] LABS: Basophils Percent Auto 0.3 % (0.2-1.2); Eosinophils Absolute Auto 0.1 K/mm3 (0-0.3); Hematocrit 35.8 % (37.0-47.0); Hemoglobin 11.7 g/dL (12.0-15.0); Immature Granulocyte Absolute 0.02 K/mm3 (0.00-0.031); Immature Granulocyte Percent A 0.2 % (0-0.5); Lymphocytes Percent Auto 23.8 % (18.3-44.2); Mean Corpuscular HGB Conc 32.7 g/dl (32-36); Mean Corpuscular Hemoglobin 28.3 pg (26-34); Mean Corpuscular Volume 86.7 fl (80-100); Mean Platelet Volume 9.6 fl (7.4-10.4); Monocytes Absolute Auto 0.7 K/mm3 (0.1-0.6); Monocytes Percent Auto 7.7 % (2.6-8.5); Neutrophils Absolute Auto 5.9 K/mm3 (1.3-6.7); Platelet Count Result 289 k/mm3 (150-375); Red Blood Count 4.13 M/mm3 (4.2-5.4); Red Cell Distribution Width 14.3 % (11.5-14.5); White Blood Count 8.8 K/mm3 (4.5-10.0)
[2023-12-21 18:35] LABS: Alanine Aminotransferase 16 U/L (6-35); Albumin Level 4.3 g/dL (3.5-5.1); Alkaline Phosphatase 114 U/L (38-126); Anion Gap 5 mmol/L (4-12); Aspartate Amino Transferase 19 U/L (14-36); Bilirubin,Total 0.3 mg/dL (0.2-1.3); Blood Urea Nitrogen 15 mg/dL (7-17); Carbon Dioxide 26 mmol/L (22-30); Chloride 108 mmol/L (98-107); Estimated CRCL calculation 146 ml/min; Estimated Glomerular Filt Rate > 60; Glucose 118 mg/dL (65-110); Lipase 69 U/L (23-300); Potassium 3.9 mmol/L (3.4-5.0); Sodium 139 mmol/L (137-145)
[2023-12-21 18:39] LABS: INR 0.9; Prothrombin Time 12.9 Seconds (11.1-14.7)
[2023-12-21 18:40] LABS: Partial Thromboplastin Time 23.1 Seconds (22.3-36.8)
[2023-12-21] MEDS: MORPHINE SULFATE (*CRX) 4 MG/ML INJ IV PUSH (18:46)
--- NOTE | 2023-12-21 19:18 | PC.NURSE ---
[place] & sutures intact to lower back, incision clean & dry.
--- NOTE | 2023-12-21 19:22 | PC.NURSE ---
this rn assumed care of patient. this rn took patient report from SANJIV Monae.
[2023-12-21 19:37] LABS: Vancomycin Random 10.2 ug/mL (10-20)
[2023-12-21] MEDS: VANCOMYCIN 1,750 MG/NS 500 ML 1,750 MG/500 ML BAG 250 MG IVPB (20:17)
[2023-12-21] MEDS: SODIUM CHLORIDE 0.9% IV 1,000 ML 125 ML IV CONT (20:17)
[2023-12-21 20:28] LABS: Hematocrit 34.7 % (37.0-47.0); Hemoglobin 11.1 g/dL (12.0-15.0)
--- NOTE | 2023-12-21 20:40 | ADMGEN ---
This patient, Tatiana Mcpherson, was admitted to [facility] Surg Room 321-02. Patient/family oriented to hospital policies and general routines including ID bracelet, bed and alarms, visiting hours, pain management, procedures, bathroom and other care routines, personal items, smoking policy, room service/diet, and visiting hours. Information on how to activate the Rapid Response Team has been discussed. Patient/Family are encouraged to report perceived risks to care and to ask questions if they do not understand what they are told or what they should do.
--- NOTE | 2023-12-21 20:40 | PM.IMHP ---
H&P: HPI History of Present Illness Date/Time: 12/21/23 20:00 Chief Complaint: Blood in vomit. Narrative: This is a 43-year-old female smoker with history of Jennifer-en-Y gastric bypass, uterine cancer status post complete hysterectomy, deep venous thrombosis, anemia, diet-controlled type 2 diabetes mellitus, seizures, hypertension, and hyperlipidemia who presented to the emergency department for evaluation of blood in vomit. She had L5-S1 laminectomy done early last month complicated by postoperative hematoma requiring drain placement with subsequent infection which sounds like osteomyelitis for which she is current receiving cefepime, metronidazole, and vancomycin. She reports quite a bit of postoperative pain and had been on p.o. hydromorphone although that was changed to oxycodone several days ago. For the last 2 days she has significant nausea with dry heaves and she reports having a couple of episodes of emesis today containing streaks of bright red blood. She came into the ED with concerns for possible ulcers as she reportedly has a history of such though that has not been noted on EGDs done at this facility previously. After receiving IV fluids and antiemetics in the ED, she is feeling somewhat better. Her vital signs and hemoglobin have been stable. Given her history of ulcers and gastric bypass surgery she is being admitted for GI consultation and possible EGD tomorrow. At this time she has no complaints and denies fever, chills, sweats, epigastric and abdominal pain, GERD symptoms, bloating, belching, hematochezia, and melena (reports darker brown stools yesterday). Review of Systems Review of Systems: 12 systems were reviewed and are negative except for as per HPI. [facility] Past Medical History Medical History (Updated 12/21/23 @ 23:18 by Jana Harrington PA-C) Anxiety and depression Asthma Chronic obstructive pulmonary disease Deep venous thrombosis Diet-controlled type 2 diabetes mellitus Endometriosis Kidney stone Seizures Tobacco user Uterine cancer Surgical History Surgical History (Updated 12/21/23 @ 21:01 by Jana Harrington PA-C) History of hysterectomy History of hysterectomy for cancer History of laminectomy (11/2023) L4-S1 per Dr. Skelton at [facility] complicated by hematoma and infection. History of lobectomy of lung Right upper lobe for precancerous nodule History of Jennifer-en-Y gastric bypass History of tonsillectomy Family History Family History (Updated 12/21/23 @ 23:14 by Janeth Roberts RN) Other Unknown family medical history Social History Social History (Updated 12/21/23 @ 23:18 by Jana Harrington PA-C) Social History: Surrogate medical decision maker: Kathie Irvin, mother. Code status: Full code. Smoking packs per day: 0.5 Smoking cigarettes per day: 10.0 Years smoked: 31 Smoking pack-years: 15.50 Smoking status: Current every day smoker Tobacco type: cigarettes Alcohol intake: unknown Substance use: unknown Do You Feel Safe in your Home?: Yes Lack of Transportation: No Lack of Food: Often True Current Housing: I Have Housing Concerned About Future Housing: No Difficulty Paying Gas/Electric Bills: YES Difficulty Paying for Meds: No Currently Unemployed: Decline to Answer Education: Trade/Vocational Certificate Difficulty w/ Childcare or Family Care: No Spiritual care concerns: No Meds Home Medications and Allergies Home Medications Medication Instructions Recorded Confirmed Type albuterol sulfate 2.5 mg/3 mL 2.5 mg inhalation Q3H 12/21/23 12/21/23 History (0.083 %) solution for nebulization albuterol sulfate 90 mcg/actuation 2 puff inhalation Q4H wheezing 12/21/23 12/21/23 History aerosol inhaler carbamazepine 100 mg 200 mg PO BID 12/21/23 12/21/23 History capsule,extended release [id number] cefepime 1 gram intravenous 2 g IV Q8H 12/21/23 12/21/23 History piggyback cyclobenzaprine 10 mg tablet 10 m
[2023-12-21] MEDS: HYDROmorphone HCL INJ (*CRX) 1 MG/ML SYR IV PUSH ×2 (20:57→23:50)
[2023-12-21] MEDS: diphenhydrAMINE HCl CAP 25 MG CAPSULE PO (20:58)
[2023-12-21] MEDS: metroNIDAZOLE 500 MG TABLET BY MOUTH (23:49)
[2023-12-21] MEDS: CEFEPIME 2 GM/NS 50 ML BAG IVPB (23:49)
[2023-12-21] MEDS: CYCLOBENZAPRINE HCL 10 MG TABLET PO (23:49)
[2023-12-21] MEDS: CARBAMAZEPINE XR 200 MG TAB.ER.12H PO (23:59)
[2023-12-22] MEDS: HYDROmorphone HCL INJ (*CRX) 1 MG/ML SYR IV PUSH ×4 (02:58→11:35)
[2023-12-22 03:02] LABS: Hematocrit 32.4 % (37.0-47.0); Hemoglobin 10.3 g/dL (12.0-15.0)
[2023-12-22 03:15] LABS: Alanine Aminotransferase 14 U/L (6-35); Albumin Level 3.6 g/dL (3.5-5.1); Alkaline Phosphatase 95 U/L (38-126); Anion Gap 4 mmol/L (4-12); Aspartate Amino Transferase 17 U/L (14-36); Bilirubin,Total 0.3 mg/dL (0.2-1.3); Blood Urea Nitrogen 12 mg/dL (7-17); Calcium 8.6 mg/dL (8.4-10.2); Carbon Dioxide 27 mmol/L (22-30); Chloride 108 mmol/L (98-107); Estimated CRCL calculation 146 ml/min; Estimated Glomerular Filt Rate > 60; Glucose 90 mg/dL (65-110); Magnesium 1.9 mg/dL (1.6-2.3); Sodium 139 mmol/L (137-145)
--- NOTE | 2023-12-22 04:09 | PCRCNOTE ---
Patient refused her 0000 and 0400 updraft treatments stating she only does treatments at home PRN. RT instructed patient to call if a treatment was needed. Till then, pt stated she will refuse all scheduled treatments.
[2023-12-22 05:28] VITALS: BP 118/92; PULSE 64; RESP 18; TEMP 36.8; O2SAT 97
[2023-12-22 06:00] VITALS: BP 118/92; PULSE 64; RESP 18; TEMP 36.8; O2SAT 97
[2023-12-22] MEDS: metroNIDAZOLE 500 MG TABLET BY MOUTH ×2 (06:01→14:35)
[2023-12-22] MEDS: CEFEPIME 2 GM/NS 50 ML BAG IVPB ×2 (06:01→14:35)
[2023-12-22] MEDS: SODIUM CHLORIDE 0.9% IV 1,000 ML 125 ML IV CONT (06:01)
[2023-12-22] MEDS: LIDOCAINE 5% PATCH 2 PATCH TRANSDERM (06:47)
[2023-12-22] MEDS: VANCOMYCIN 1,750 MG/NS 500 ML 1,750 MG/500 ML BAG 250 MG IVPB (08:22)
[2023-12-22] MEDS: CARBAMAZEPINE XR 200 MG TAB.ER.12H PO (08:22)
[2023-12-22] MEDS: lisinopriL 5 MG TABLET PO (08:22)
[2023-12-22] MEDS: PANTOPRAZOLE SODIUM IV 40 MG VIAL IV PUSH (08:22)
[2023-12-22] MEDS: CYCLOBENZAPRINE HCL 10 MG TABLET PO ×2 (08:22→14:35)
--- NOTE | 2023-12-22 09:48 | PM.IMPN ---
Progress Note: A&P Assessment and Plan (1) Vomiting of blood: Code(s): K92.0 - Hematemesis Status: Acute Assessment and Plan: -no recurrence of nausea/vomiting since admission -tolerated full liquid diet yesterday -GI consulted, likely EGD tomorrow (2) Post-operative infection: Code(s): T81.40XA - Infection following a procedure, unspecified, initial encounter Status: Acute Assessment and Plan: -continue cefepime, metronidazole and vancomycin -initial spinal laminectomy at [facility] -subsequent surgery for abscess washout with drain placement at [facility] -patient discharged 3 days ago from [facility] (3) Seizures: Code(s): R56.9 - Unspecified convulsions Status: Acute Assessment and Plan: -continue home medications (4) Diet-controlled type 2 diabetes mellitus: Code(s): E11.9 - Type 2 diabetes mellitus without complications Status: Acute Assessment and Plan: -AM labs with normal glucose (5) Tobacco user: Code(s): Z72.0 - Tobacco use Status: Acute Assessment and Plan: -decline nicotine patch on admission, will make PRN available Time Spent With Patient Time with patient: 25 - 35 minutes Subjective Date/time seen: 12/22/23 09:48 Interval history: Patient admitted for hematemesis that patient associates with change in oral pain meds from oral hydromorphone to oral oxycodone. She was also taking naproxen for pain. She stated anything with acetaminophen causes RUQ pain and nausea as well. Patient on cefepime, vancomycin and metronidazole for reported osteomyelitis in the spine as a post operative complication. GI to see patient, likely EGD tomorrow. Review of Systems Review of Systems: 12 systems were reviewed and are negative except for as per HPI. Exam Narrative: General: Well-developed non-toxic appearing female sitting up in bed in no distress. HEENT: PERRL, EOMI. Sclera anicteric. Tacky mucous membranes. Neck: Supple. Respiratory: Lungs are clear to auscultation bilaterally. Cardiovascular: Regular rate and rhythm with S1-S2. Gastrointestinal: Abdomen is soft, nontender, and nondistended with positive bowel sounds. No guarding or rebound tenderness. Skin: Warm and dry. Spine: Incision site is well-approximated and is healing. Mild swelling around what looks like a suture. No warmth, erythema, or drainage noted. Extremities: No cyanosis, clubbing, or edema. Radial and pedal pulses intact. Neurological: Alert. Cranial nerves 2-12 are grossly intact. No gross focal deficits to casual conversation. Psychiatric: Pleasant and cooperative with normal mood and affect. Objective Data Vital Signs Vital Signs: Vital Signs - 24 hr 12/21/23 18:04 12/21/23 18:50 12/21/23 18:16 Temperature 36.4 C Pulse Rate 100 86 130 H Respiratory Rate 20 20 17 Blood Pressure 155/90 H 142/89 H 129/108 H Pulse Oximetry 97 96 97 Oxygen Delivery Room Air 12/21/23 18:27 12/21/23 18:51 12/21/23 19:17 Temperature 36.6 C 36.7 C Pulse Rate 90 93 79 Respiratory Rate 19 20 18 Blood Pressure 132/89 142/89 H 106/56 L Pulse Oximetry 97 97 98 Oxygen Delivery 12/21/23 19:18 12/21/23 20:02 12/21/23 20:15 Temperature Pulse Rate 73 83 79 Respiratory Rate 14 20 17 Blood Pressure 161/98 H Pulse Oximetry 97 95 Oxygen Delivery 12/21/23 21:29 12/22/23 05:28 12/22/23 08:30 Temperature 37.1 C 36.8 C Pulse Rate 90 64 Respiratory Rate 18 Blood Pressure 124/85 118/92 H Pulse Oximetry 98 97 Oxygen Delivery Room Air Intake/Output Intake/Output: Intake & Output 12/19/23 12/20/23 12/21/23 12/22/23 23:59 23:59 23:59 23:59 Intake Total 500 1050 Balance 500 1050 Meds/Results Medications: Active Medications Generic Name Dose Route Start Last Admin Trade Name Freq PRN Reason Stop Dose Admin Albuterol 2.5 mg 12/22/23 00:00 12/22/23 08:14 [place]
[2023-12-22 10:37] LABS: Hematocrit 32.1 % (37.0-47.0); Hemoglobin 10.2 g/dL (12.0-15.0)
--- NOTE | 2023-12-22 12:21 | WPDGICN ---
Assessment and Plan Assessment and plan (1) Hematemesis: Qualifiers: Nausea presence: with nausea Qualified Code(s): K92.0 - Hematemesis Code(s): K92.0 - Hematemesis Status: Acute Assessment and Plan: differential is MWT, esophagitis, ulcer (use of nsaid's), etc egd tomorrow iv protonix (2) Nausea and vomiting: Code(s): R11.2 - Nausea with vomiting, unspecified Status: Acute (3) Acute blood loss anemia: Code(s): D62 - Acute posthemorrhagic anemia Status: Acute Assessment and Plan: repeat hgb 10, monitor for more signs of bleeding (4) Osteomyelitis of lumbar spine: Code(s): M46.26 - Osteomyelitis of vertebra, lumbar region Status: Acute (5) Post-operative infection: Code(s): T81.40XA - Infection following a procedure, unspecified, initial encounter Status: Acute Assessment and Plan: on iv abx (6) H/O gastric bypass: Onset Date: ~11/29/23 Code(s): Z98.84 - Bariatric surgery status Status: Acute (7) Hx of malignant neoplasm of uterine body: Code(s): Z85.42 - Personal history of malignant neoplasm of other parts of uterus Status: Acute (8) NSAID long-term use: Code(s): Z79.1 - 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 She had L5-S1 laminectomy at another hospital few weeks ago complicated by postoperative hematoma requiring drain placement with subsequent osteomyelitis for which she now has a picc line for iv antibiotic- cefepime, metronidazole, and vancomycin. Shehas chronic pain and just few days ago her narcotic was changed for extra release oxycodone but she started last 3 days with significant nausea with dry heaves then noted streaks of bright red blood. She has loose stools since getting abx but no change of stool color. Hgb baseline 12 and repeat 10.2. She is feeling better, no more nausea and hungry. She has been taking naproxen as needed, more often last 5 days after pain med was changed. Review of Systems Constitutional: Constitutional: Denies night sweats Eyes: Eyes: Denies blurry vision ENT: Reports Normal hearing present Cardiovascular: Cardiovascular: Denies chest pain Respiratory: Respiratory: Denies cough Gastrointestinal: Gastrointestinal: Reports nausea, Reports vomiting and Reports hematemesis Genitourinary: Genitourinary: Denies dysuria Musculoskeletal: Musculoskeletal: Reports back pain Integumentary/Breasts: Skin/Breast: Denies rash Neurologic: Denies Abnormal speech present Psychiatric: Psychiatric: Denies behavioral changes [facility] Past Medical History Medical History (Updated 12/22/23 @ 12:32 by Neville Paz MD) Acute blood loss anemia Anxiety and depression Asthma Chronic obstructive pulmonary disease Deep venous thrombosis Diet-controlled type 2 diabetes mellitus Endometriosis Kidney stone NSAID long-term use Osteomyelitis of lumbar spine Seizures Tobacco user Uterine cancer Surgical History Surgical History (Updated 12/21/23 @ 21:01 by Jana Harrington PA-C) History of hysterectomy History of hysterectomy for cancer History of laminectomy (11/2023) L4-S1 per Dr. Skelton at [facility] complicated by hematoma and infection. History of lobectomy of lung Right upper lobe for precancerous nodule History of Jennifer-en-Y gastric bypass History of tonsillectomy Family H
--- NOTE | 2023-12-22 12:32 | PCRCNOTE ---
Pt does not want scheduled neb tx. She stated she only takes them at home when needed. She will call when she wants one.
[2023-12-22 14:00] VITALS: BP 134/76; PULSE 77; RESP 18; TEMP 36.3; O2SAT 98
[2023-12-22] MEDS: HYDROmorphone HCL (*CRX) 2 MG TABLET PO (14:35)
--- NOTE | 2023-12-22 16:18 | PC.NURSE ---
Pt came in d/t vomiting blood. Pt was witnessed trying to open window. Pt was educated that that the windows do not open. Pt was compliant and returned to bed. Pt was evaluated by provider and GI. Pt was placed on full liquid diet then advanced to regular diet for dinner initially. Pt was dissatisfied that she was not able to eat. Pt then attempted to leave floor to go to cafeteria. Pt was educated that she was not able to leave the unit. Pt was aggravated but returned to room. This nurse went to discuss with pt that according to the orders they were on a full liquid diet and her regular diet was not supposed to start until dinner. Pt was again upset that she could not leave the floor. Pt was informed that we do not allow pts to leave floor because of elopement risk. Pt stated, You are treating me like a prisoner. You are poking the bear. We are adults and if we want to go out to smoke that is our choice. You shouldn't have a say in what I get to do. Pt then stated I don't like you so just leave . Pt repeatedly used call light screaming at the staff answering the phone, I want food . Another RN went to pt room and talked with pt. Security was notified and came to floor to standby incase needed. During this time, diet order was changed to start at lunch and pt was provided food. Pt did not like food that was provided. Pt was then caught smoking in room. Cigarettes and mechanic industrial truck were confiscated and pt was asked to empty purse to be sure no other cigarettes or mechanic industrial truck were present. Pt raised voice and stated, give me my stuff and I'll go . Pt was informed that she was not being discharged, but she was free to leave AMA. Pt again requested to have her cigarettes back. Pt was informed that she would get her cigarettes back upon discharge. Pt decided to leave AMA and requested cigarettes and mechanic industrial truck. Pt provider was informed. Pt belongings were returned to pt and pt left AMA. Pt was educated on what it meant to leave AMA. Pt was educated that she would have to come in through the ED if she decided to return for care.
--- NOTE | 2023-12-22 19:39 | PC.NURSE ---
This RN agrees with the meteorologist in charge's note that was written earlier this afternoon. This RN was the pt's primary care RN today. While this RN was administering the pt's morning medications, the pt inquired about going out to her car to 'get something.' This RN told the pt about hospital policy and that that would not be permitted. The pt verbalized understanding. Later in the afternoon, the pt was seen in the hallway with her clothes on from home and she stated that she was going to go to the cafeteria. At this point, the meteorologist in charge was notified as well as security. The meteorologist in charge reinforced hospital policy protocol on leaving the unit. The pt, again, verbalized understanding; about 30 minutes later after the occurrence and re-education, the room and hallway smelled of cigarette smoke. This RN and the meteorologist in charge asked the pt if she smoked in her room and asked her to forfeit the behavioral health aide and cigarettes. At this point, the pt appeared upset and said she wanted to leave. The MD's were notified and the pt left AMA.
== END 2023-12-22 15:20 | disposition left against medical advice (07) ==
LOC: ANHED 19:43 → ANH3MEDSUR 20:16
PROVIDERS: Physician Assistant; Admitting Provider Internal Medicine; Emergency Provider Physician Assistant; PCP Family Medicine; Visit Provider Internal Medicine
DX: K92.0 Hematemesis (principal); D62 Acute posthemorrhagic anemia; T81.40XA Infection following a procedure, unspecified, initial encounter; M46.26 Osteomyelitis of vertebra, lumbar region; G89.18 Other acute postprocedural pain; E11.9 Type 2 diabetes mellitus without complications; F41.8 Other specified anxiety disorders; J44.9 Chronic obstructive pulmonary disease, unspecified; G40.909 Epilepsy, unspecified, not intractable, without status epilepticus; I10 Essential (primary) hypertension; E78.5 Hyperlipidemia, unspecified; Z85.42 Personal history of malignant neoplasm of other parts of uterus; Z86.718 Personal history of other venous thrombosis and embolism; Z79.51 Long term (current) use of inhaled steroids; Z90.2 Acquired absence of lung [part of]; Z98.84 Bariatric surgery status; F17.210 Nicotine dependence, cigarettes, uncomplicated; Z79.1 Long term (current) use of non-steroidal anti-inflammatories (NSAID)
CPT/HCPCS: 36415; 80053; 80202; 83690; 83735; 85014; 85018; 85025; 85610; 85730; 96361; 96365; 96366; 96367; 96368; 96375; 96376; 99285; A9270; C9113; G0378; G0379; J0692; J1170; J2270; J2405; J3370; J7030

== ENCOUNTER 2024-03-13 18:14 | Emergency (ER) | payer OTHER, SELFPAY ==
[2024-03-13 18:35] VITALS: BP 151/108; PULSE 75; RESP 20; TEMP 36.9; O2SAT 96
[2024-03-13 19:19] LABS: Basophils Percent Auto 0.7 % (0.2-1.2); Eosinophils Absolute Auto 0.2 K/mm3 (0-0.3); Eosinophils Percent Auto 2.8 % (0-4.4); Hematocrit 32.7 % (37.0-47.0); Hemoglobin 10.2 g/dL (12.0-15.0); Immature Granulocyte Absolute 0.01 K/mm3 (0.00-0.031); Immature Granulocyte Percent A 0.2 % (0-0.5); Lymphocytes Absolute Auto 1.68 K/mm3 (0.9-3.2); Lymphocytes Percent Auto 29.4 % (18.3-44.2); Mean Corpuscular HGB Conc 31.2 g/dl (32-36); Mean Corpuscular Hemoglobin 25.9 pg (26-34); Mean Platelet Volume 9.8 fl (7.4-10.4); Monocytes Absolute Auto 0.4 K/mm3 (0.1-0.6); Monocytes Percent Auto 6.6 % (2.6-8.5); Neutrophils Absolute Auto 3.5 K/mm3 (1.3-6.7); Neutrophils Percent Auto 60.3 % (45.5-73.1); Platelet Count Result 335 k/mm3 (150-375); Red Blood Count 3.94 M/mm3 (4.2-5.4); Red Cell Distribution Width 14.4 % (11.5-14.5); White Blood Count 5.7 K/mm3 (4.5-10.0)
[2024-03-13 19:29] LABS: Alanine Aminotransferase 19 U/L (6-35); Alkaline Phosphatase 112 U/L (38-126); Anion Gap 5 mmol/L (4-12); Aspartate Amino Transferase 25 U/L (14-36); Bilirubin,Total 0.1 mg/dL (0.2-1.3); Blood Urea Nitrogen 20 mg/dL (7-17); Calcium 8.9 mg/dL (8.4-10.2); Carbon Dioxide 26 mmol/L (22-30); Chloride 104 mmol/L (98-107); Estimated CRCL calculation 127 ml/min; Estimated Glomerular Filt Rate > 60; Glucose 81 mg/dL (65-110); Potassium 4.6 mmol/L (3.4-5.0); Sodium 135 mmol/L (137-145)
[2024-03-13] MEDS: MAGNESIUM SULF 2 GM/WATER 50ML 2 GM/50 ML BAG IVPB (19:45)
[2024-03-13] MEDS: diphenhydrAMINE HCl INJ 50 MG/ML VIAL 25 MG IV PUSH (19:46)
[2024-03-13] MEDS: SODIUM CHLORIDE 0.9% IV 1,000 ML 999 ML IV CONT (19:46)
[2024-03-13] MEDS: dexAMETHasone SOD PHOS INJ 10 MG/ML 1 ML VIAL IV PUSH (19:46)
[2024-03-13] MEDS: PROCHLORPERAZINE EDISYLATE 10 MG/2 ML VIAL IV PUSH (19:46)
--- NOTE | 2024-03-13 19:52 | ED.HA ---
HPI - Headache General Chief Complaint: Headache Stated Complaint: RAMY Granado, Back pain Time Seen by Provider: 03/13/24 18:41 History of Present Illness HPI Narrative: This is a 43-year-old female with a past medical history significant for seizure disorder, diet-controlled diabetes, hypertension, hyperlipidemia. She has a history of uterine cancer status post total hysterectomy. Today patient presents to the ED with a chief complaint of gradual-onset right-sided headache located behind her eye. She describes as stabbing in nature. Associated with photophobia and phonophobia. She has a history of headaches in the past associated as an aura before her seizures. No recent seizure activity. She has had worse headaches in the past. No history of recent trauma or injuries. She was recently seen yesterday for a nerve conduction study for polyneuropathy. No fevers, chills. Related Data Home Medications Medication Instructions Recorded Confirmed albuterol sulfate 2.5 mg/3 mL 2.5 mg inhalation Q3H 12/21/23 12/21/23 (0.083 %) solution for nebulization albuterol sulfate 90 mcg/actuation 2 puff inhalation Q4H wheezing 12/21/23 12/21/23 aerosol inhaler carbamazepine 100 mg 200 mg PO BID 12/21/23 12/21/23 capsule,extended release [id number] cefepime 1 gram intravenous 2 g IV Q8H 12/21/23 12/21/23 piggyback cyclobenzaprine 10 mg tablet 10 mg PO TID PRN Muscle Spasm 12/21/23 12/21/23 lisinopril 10 mg tablet 5 mg PO DAILY 12/21/23 12/21/23 metronidazole 500 mg tablet 500 mg PO Q8H 12/21/23 12/21/23 ondansetron 4 mg disintegrating 4 mg PO Q6H PRN Nausea And Vomiting 12/21/23 12/21/23 tablet vancomycin 1 gram/100 mL in 0.9 % 1 g IV Q12H 12/21/23 12/21/23 sodium chloride intravenous solution Allergies Allergy/AdvReac Type Severity Reaction Status Date / Time ceftriaxone Allergy Severe Anaphylactic Verified 03/13/24 18:40 Shock fentanyl Allergy Severe Stopped Verified 03/13/24 18:40 Breathing Iodinated Contrast Media Allergy Intermediate Hives/RED Verified 03/13/24 18:40 FACE ciprofloxacin Allergy Mild RASH Verified 03/13/24 18:40 codeine Allergy Mild SEVERE Verified 03/13/24 18:40 DROWSINESS venom-honey bee Allergy Mild RASH Verified 03/13/24 18:40 levofloxacin Allergy Unknown Unknown Verified 03/13/24 18:40 Sulfa (Sulfonamide Allergy Unknown Unknown Verified 03/13/24 18:40 Antibiotics) morphine Allergy Stopped Verified 03/13/24 21:06 Breathing propofol AdvReac Severe seizures Verified 03/13/24 18:40 Review of Systems Review of Systems: As reviewed above in the HPI [facility] Past Medical History Medical History Acute blood loss anemia Anxiety and depression Asthma Chronic obstructive pulmonary disease Deep venous thrombosis Diet-controlled type 2 diabetes mellitus Endometriosis Kidney stone NSAID long-term use Osteomyelitis of lumbar spine Seizures Tobacco user Uterine cancer Surgical History Surgical History History of hysterectomy History of hysterectomy for cancer History of laminectomy (11/2023) L4-S1 per Dr. Skelton at [facility] complicated by hematoma and infection. History of lobectomy of lung Right upper lobe for precancerous nodule History of Jennifer-en-Y gastric bypass History of tonsillectomy Family History Family History Other Unknown family medical history Social History Social History Social History: Surrogate medical decision maker: Kathie Irvin, mother. Code status: Full code. Smoking packs per day: 0.5 Smoking cigarettes per day: 10.0 Years smoked: 31 Smoking pack-years: 15.50 Smoking status: Current every day smoker Tobacco type: cigarettes Alcohol intake: unknown Substance use: unkn
[2024-03-13] MEDS: HYDROmorphone HCL INJ (*CRX) 1 MG/ML SYR 0.25 MG IV PUSH (21:14)
--- NOTE | 2024-03-13 21:22 | PC.NURSE ---
patient requesting to leave. pt requesting hydromorphone for pain. pt states she cannot take other pain medications. edp dr. armas notified and made aware. pt visitor came back to nurses station to ask for iv to be removed so that patient could leave and go home. edp dr. armas made aware.
== END 2024-03-13 21:26 | disposition home or self-care (01) ==
PROVIDERS: Emergency Provider Student in an Organized Health Care Education/Training Program; PCP Family Medicine
DX: G43.909 Migraine, unspecified, not intractable, without status migrainosus (principal); G44.029 Chronic cluster headache, not intractable; I10 Essential (primary) hypertension; E78.5 Hyperlipidemia, unspecified; E11.9 Type 2 diabetes mellitus without complications; G40.909 Epilepsy, unspecified, not intractable, without status epilepticus; J44.9 Chronic obstructive pulmonary disease, unspecified; F17.210 Nicotine dependence, cigarettes, uncomplicated; Z98.84 Bariatric surgery status; Z86.718 Personal history of other venous thrombosis and embolism; Z85.42 Personal history of malignant neoplasm of other parts of uterus; Z90.710 Acquired absence of both cervix and uterus; Z90.2 Acquired absence of lung [part of]; Z79.899 Other long term (current) drug therapy
CPT/HCPCS: 36415; 80053; 85025; 96365; 96366; 96375; 99284; J0780; J1100; J1170; J1200; J3475; J7030

== ENCOUNTER 2024-10-13 01:22 | Emergency (ER) | payer OTHER, SELFPAY ==
--- NOTE | ~2024-10-13 | CT_ITS ---
CT of the Abdomen and Pelvis: Indication: Abdominal pain Technique: 2.5 mm axial scans were obtained through the abdomen and pelvis following intravenous adm inistration of 100 cc of Omnipaque 350. Dose reduction technique was used on this scan by utilizing a utomated exposure control and iterative reconstruction technique. The dose-length product (DLP) was 1 688.50 mGy-cm. COMPARISON: 07/11/2022 Findings: Scans through the lung bases are unremarkable. The liver, spleen, pancreas, gallbladder, adrenals and kidneys are within normal limits. There are at herosclerotic calcifications of the aorta. No lymphadenopathy. No bowel obstruction or bowel wall thickening. There is evidence of prior gastric surgery. Images through the pelvis were performed. Urinary bladder unremarkable. No pelvic mass seen. No ascit es. There is advanced degenerative disc change at L5-S1. Impression: No significant abnormalities seen. Reviewed, dictated and finalized at [facility]. Impression: No significant abnormalities seen.
--- OUTSIDE RECORDS SUMMARY | 2024-10-13 01:25 | XMS_ITS | Encounter Summary ---
Author Organization [employer] Address [address] [place] [address] Care Team Providers Care Command Center Officer Name Role Phone Brett Chávez MD Primary Care Provider + Encounter Details Date Type Department Care Team (Late st Contact Info) Description 07/30/1998 Outpatient Historical [facility] Irvin De Luna MD NO ADDRESS ON FILE Er, Authorized P NO ADDRESS ON FILE Abdominal pain, unspecified site (Primary Dx) Social History Tobacco Use Types Packs/Day Years Used Date Smoking Tobacco: Never Assessed Comments Unknown Sex and Gender Information Value Date Recorded Sex Assigned at Not on file Legal Sex Female 2:47 AM RN SURGERY ICU Gender Identity Not on file Sexual Orientation Not on file documented as of this encounter Plan of Treatment Not on file documented as of this encounter Visit Diagnoses Diagnosis Abdominal pain, unspecified site- Primary documented in this encounter Additional Health Concerns Infection Onset Date Last Indicated Resolved Time R/O GI Pathogen 11/04/2023 11/04/2023 11/04/2023 8 :19 PM CDT documented as of this encounter Care Teams Command Center Officer Relationship Specialty Start Date End Date Brett Chávez MD [address] [place] [id number] PCP - General Family Practice 04/02/20 documented as of this encounter
--- OUTSIDE RECORDS SUMMARY | 2024-10-13 01:25 | XMS_ITS | Encounter Summary ---
Author Organization [facility] Healthcare Address [address] [place] [address] Care Team Providers Care Invertebrate Paleontologist Name Role Phone Denver Veliz MD Unavailable Anna Cassidy NP Primary Care Provider Eriberto Skelton MD Unavailable [phone] Albert Jordan MD Unavailable [phone] Fanta Barraza DNP Unavailable [phone] Dalton Fragoso MD Unavailable [phone] Sue Snow MD Primary Care Provider Eli Abbott MD Primary Care Provider [phone] Reason for Visit * Reason Onset Date Comments Medical Question/Miscellaneous 10/24/2023 Call Back 10/24/2023 Encounter Details Date Type Department Care Team (Late st Contact Info) Description 10/24/2023 Telephone [facility] [place] [address] [facility] [address] [place] [address] Anna Cassidy CIVIL ENGINEERING MANAGER [address] [place] [address] [place] [id number] Medical Question/Miscellaneous; Call Back Social History Tobacco Use Types Packs/Day Years Used Date Smoking Tobacco: Every Day Cigarettes 0.8 30 Smokeless Tobacco: Never Alcohol Use Standard Drinks/Week Comments No 0 (1 standard drink = 0.6 oz pur e alcohol) Social Connection and Isolat ion Panel [NHANES] Answer Date Recorded In a typical week, how many times do you talk on the phone with family, friends, or neighbors? More than three times a week 04/24/2023 How often do you get togethe r with friends or relatives? More than three times a week 04/24/2023 How often do you attend chur ch or oriental orthodox services? Never 04/24/2023 Do you belong to any clubs o r organizations such as baptist groups, unions, fraternal or athletic groups, or school groups? No 04/24/2023 How often do you attend meet ings of the clubs or organizations you belong to? Never 04/24/2023 Are you , , di vorced, , never , or living with a partner? 04/24/2023 AUDIT-C Answer Date Recorded Q1: How often do you have a drink containing alcohol? Never 10/14/2023 Q2: How many drinks containi ng alcohol do you have on a typical day when you are drinking? Patient does not drink Q3: How often do you have si x or more drinks on one occasion? Never 10/14/2023 Overall Financial Resource Strain (CARDIA) Answe r Date Recorded How hard is it for you to pa y for the very basics like food, housing, medical care, and heating? Somewhat hard 04/24/2023 PHQ-2 Answer Date Recorded PHQ-2 Total Score (If total score is 3 or more points, staff should administer the PHQ-9) 2 09/16/2023 Hunger Vital Sign Answer Date Recorded Within the past 12 months, y ou worried that your food would run out before you got the money to buy more. Never true 04/24/20 23 Within the past 12 months, t he food you bought just didn't last and you didn't have money to get more. Never true 04/24/2023 PRAPARE - Transportation Answer Date Re corded In the past 12 months, has l ack of transportation kept you from medical appointments or from getting medications? No 04/06 In the past 12 months, has l ack of transportation kept you from meetings, work, or from getting things needed for daily living? No 04/24/2023 Housing Stability Vital Sign Answer Saul e Recorded In the last 12 months, was t here a time when you were not able to pay the mortgage or rent on time? No 04/24/2023 In the last 12 months, how many places have you lived? 1 04/24/2023 In the last 12 months, was t here a time when you did not have a steady place to sleep or slept in a residential (including now)? No 04/24/2023 Housing Stability Vital Sign Answer Saul e Recorded In the last 12 months, was t here a time when you were not able to pay the mortgage or rent on time? No 04/24/2023 Number of Times Moved in the Last Year Not on fi le 04/24/2023 Homeless in the Last Year Not on file 2022 Personal Safety Answer Date Recorded Have you ever been in or are you currently in a harmful physical or emotional relationship or is someone making you feel afraid or unsafe? Denies 10/22/2023 Comments No Sex and Gender Information Value Date Recorded Sex Assigned at Not on file Legal Sex Female 12:47 AM PLASTIC MOLDER Gender Identity Not on file Sexual Orientation Not on file documented as of this encounter Miscellaneous Notes * Telephone Encounter - Shena Song - 10/24/2023 1:46 PM CDT Call Back Caller???s Concern: Pateint checking back on her message. Does message need to be routed? Yes-Action Needed * Telephone Encounter - Columba Arce - 10/24/2023 9:32 AM CDT Medical Question/Miscellaneous Caller???s Concern: Patient has picked up her B12 injection medication from the pharmacist and was told that the CIVIL ENGINEERING MANAGER or PCP has to order a needle syringe in order for the patient to administer the medication. Patient is requesting the smallest needle available. Does message need to be routed? Yes-Action Needed documented in this encounter Plan of Treatment Upcoming Encounters Date Type Department Care Team (Late st Contact Info) Description 11/17/2024 8:00 AM CDT Hospital Encounter [facility] [address] [place] [address] Timothy White MD [address] [facility] [address] [place] [address] 11/17/2024 8:00 AM CDT - 11/17/2024 8:30 AM CDT Surgery [address] [address] Timothy White MD [address] [facility] [address] [place] [address] COLONOSCOPY Scheduled Procedures Name Priority Associated Diagnoses Date/Ti me COLONOSCOPY Family history of colon cancer in mother Encounter for screening colonoscopy 11/17/2024 8:00 AM CDT documented as of this encounter Visit Diagnoses Diagnosis Vitamin B12 deficiency- Primary Other B-complex deficiencies Family history of colon cancer in mother Encounter for screening colonoscopy documented in this encounter Historical Medications * This list may reflect changes made after this encounter. syringe with needle 3 mL 23 x 1 syringe 1 each every 30 (thirty) days For use with B-12 injection, 1mL monthly. 09/09/2024 added in this encounter Additional Health Concerns Infection Onset Date Last Indicated Resolved Time C. difficile suspected 12/06/2023 12/06/202312/06 3:05 AM CDT COVID: Suspected 12/06/2023 12/06/2023 12/07/2023 3:05 AM CDT COVID: Suspected 08/03/2024 08/03/2024 08/03/2024 7:44 PM PLASTIC MOLDER COVID19 08/03/2024 08/03/2024 08/13/2024 3:05 AM PLASTIC MOLDER COVID: Recovered Comment:Added based on recent COVID infection. 08/13/2024 08/13/2024 documented as of this encounter Care Teams Invertebrate Paleontologist Relationship Specialty Start Date End Date Anna Cassidy NP [address] [place] [address] PCP - General Barking Machine Feeder 09/16/23 03/04/24 Sue Snow MD [address] [place], [place] [id number] PCP - General Internal Medicine 03/05/24 10/06/24 Eli Abbott MD [address] [place] [address] PCP - General Obstetrics and Gynecology 10/07/24 [place] [address] [place] [address] Consulting Physician Gastroenterology 12/22/22 Eriberto Skelton MD [address] [place] [address] Consulting Physician Neurosurgery 09/16/23 Albert Jordan MD [address] [place] [address] Consulting Physician Cardiology 09/16/23 03/17/24 Fanta Barraza DNP [address] [place] [address] Nurse Practitioner Neurology 09/16/23 03/17/24 Dalton Fragoso MD [address] [place] [address] Referring Physician Psychiatry & Neurology 09/16/23 documented as of this encounter
--- OUTSIDE RECORDS SUMMARY | 2024-10-13 01:25 | XMS_ITS | Encounter Summary ---
Author Organization [facility] Address [address] [place] [address] Care Team Providers Care Bar Waiter/Waitress Name Role Phone Brett Chávez MD Primary Care Provider + Encounter Details Date Type Department Care Team (Late st Contact Info) Description 10/12/2024 External Device Data [facility] ABSTRACTION Provider, Abstract NO ADDRESS ON FILE Social History Tobacco Use Types Packs/Day Years Used Date Smoking Tobacco: Every Day Cigarettes 0.3 20 E-Cigarette/Mist Inh alation Device Smokeless Tobacco: Never Alcohol Use Standard Drinks/Week Comments No 0 (1 standard drink = 0.6 oz pur e alcohol) Comments No Sex and Gender Information Value Date Recorded Sex Assigned at Not on file Legal Sex Female 2:47 AM STUDENT LIFE ADVISOR Gender Identity Not on file Sexual Orientation Not on file Occupation Industry Job Start Date Job End Date Not on file Not on file Not on file Not on file documented as of this encounter Plan of Treatment Not on file documented as of this encounter Visit Diagnoses Not on filedocumented in this encounter Care Teams Bar Waiter/Waitress Relationship Specialty Start Date End Date Brett Chávez MD [address] [place] [phone] PCP - General Family Practice 04/02/20 documented as of this encounter
--- OUTSIDE RECORDS SUMMARY | 2024-10-13 01:25 | XMS_ITS | Encounter Summary ---
Author Organization [facility] Address [address] [place] [address] Care Team Providers Care Resident Programs Assistant Name Role Phone Brett Chávez MD Primary Care Provider + Encounter Details Date Type Department Care Team (Late st Contact Info) Description 06/07/2003 Outpatient Historical [facility] Rodo Ann MD [address] [place] [address] [place] [address] Er, Authorized P NO ADDRESS ON FILE DEPRESSIVE DISORDER NEC (Primary Dx) Social History Tobacco Use Types Packs/Day Years Used Date Smoking Tobacco: Never Assessed Comments Unknown Sex and Gender Information Value Date Recorded Sex Assigned at Not on file Legal Sex Female 2:47 AM TELEPHONE SEX WORKER Gender Identity Not on file Sexual Orientation Not on file documented as of this encounter Plan of Treatment Not on file documented as of this encounter Visit Diagnoses Diagnosis Depressive disorder, not elsewhere classified- Primary documented in this encounter Additional Health Concerns Infection Onset Date Last Indicated Resolved Time R/O GI Pathogen 11/04/2023 11/04/2023 11/04/2023 8 :19 PM CDT documented as of this encounter Care Teams Resident Programs Assistant Relationship Specialty Start Date End Date Brett Chávez MD [address] [phone] PCP - General Family Practice 04/02/20 documented as of this encounter
--- OUTSIDE RECORDS SUMMARY | 2024-10-13 01:25 | XMS_ITS | Clinical Summary ---
Author Organization [facility] Address [address] [place] [address] Care Team Providers Care Homeopathic Doctor Name Role Phone Brett Chávez MD Primary Care Provider [phone] Brett Chávez MD Unavailable [phone] Allergies Active Allergy Reactions Criticality Noted Date Comments Ciprofloxacin Rash Low 02/20/2022 Iodine Hives 11/05/2018 Iodine Rash Low 02/20/2022 Fentanyl Hives 11/05/2018 Levofloxacin Hives 11/05/2018 Levofloxacin Rash Low 02/20/2022 Morphine Hives 11/05/2018 Ceftriaxone Anaphylaxis High 11/05/2018 Sulfa Antibiotics Hives 11/05/2018 Sulfa Antibiotics Rash Low 02/20/2022 Medications VENTOLIN HFA 108 (90 Base) MCG/ACT inhaler Inhale 2 puffs into the lungs every 6 (six) hours as needed for Wheezing (COUGH). 3 10/17/2018 Active valACYclovir (VALTREX) 1 g tablet Take 1 tablet (1,000 mg total) by mouth 3 (three) times daily. 21 tablet 02/26/2022 Active cyanocobalamin (B-12) 1000 MCG/ML injection Active multivitamin with minerals liquid Take 15 mLs by mouth daily. Active carBAMazepine ER (CARBATROL) 100 MG 12 hr capsule Take one capsule twice a day for one week, then take two capsules twice a day. 09/13/2023 Active cyclobenzaprine (FLEXERIL) 10 MG tablet TAKE 1 TABLET BY MOUTH 3 TIMES A DAY NEEDED FOR MUSCLE SPASMS FOR UP TO 14 DAYS. 04/11/2023 Active lisinopril (PRINIVIL) 10 MG tablet Take 1 tablet (10 mg total) by mouth daily. 09/16/2023 Active naproxen (NAPROSYN) 250 MG tablet Take 1 tablet (250 mg total) by mouth. Active Social History Tobacco Use Types Packs/Day Years Used Date Smoking Tobacco: Every Day Cigarettes 0.5 29 Smokeless Tobacco: Never Tobacco Cessation:Ready to Q uit: Not Asked; Counseling Given: Not Answered Alcohol Use Standard Drinks/Week Comments No 0 (1 standard drink = 0.6 oz pur e alcohol) AUDIT-C Answer Date Recorded Frequency of Alcohol Consumption Never 11/05/2018 Average Number of Drinks Not on file 019 Frequency of Binge Drinking Not on file 10/2018 Comments No Sex and Gender Information Value Date Recorded Sex Assigned at Not on file Legal Sex Female 7:33 PM CDT Gender Identity Not on file Sexual Orientation Not on file Last Filed Vital Signs Vital Sign Reading Time Taken Comments Blood Pressure 125/72 01/02/2024 8:50 PM CDT Pulse 79 01/02/2024 8:50 PM CDT Temperature 36.6 C (97.9 F) 01/02/2024 8:50 PM CDT Respiratory Rate 21 01/02/2024 8:00 PM CDT Oxygen Saturation 97% 01/02/2024 8:50 PM CDT Inhaled Oxygen Concentration - - Weight 113.9 kg (251 lb) 01/02/2024 7:36 PM CDT Height 190.5 cm (6' 3 ) 01/02/2024 7:36 PM CDT Body Mass Index 31.37 01/02/2024 7:36 PM CDT Plan of Treatment Health Maintenance Due Date Last Done Comments Colorectal Cancer Screening Colonoscopy (10 Years) 1978 Annual Physical 1981 Pneumococcal Vaccine: Pediat rics (0 to 5 Years) and At-Risk Patients (6 to 64 Years) (1 of 2 - PCV) 1984 Hepatitis C 1996 Hepatitis B Vaccines (1 of 3 - 19+ 3-dose series) 1997 Mammogram Screening 2018 COVID-19 Vaccine (2023-2 5 season) 2024 Influenza Adult (#1) 2024 DTaP, Tdap and Td Vaccines ( 2 - Td or Tdap) 03/27/2031 03/27/2021 Meningococcal B Vaccine Aged Out No l onger eligible based on patient's age to complete this topic Meningococcal Vaccine Aged Out No rohan micheal eligible based on patient's age to complete this topic RSV Immunizations Under 20 Months Aged Out No longer eligible based on patient's age to complete this topic Insurance SWANN SWANN Care Teams Homeopathic Doctor Relationship Specialty Start Date End Date Brett Chávez MD [address] [place] [address] PCP - General FAMILY PRACTICE 02/20/22 Brett Chávez MD [address] [place] [address] FAMILY PRACTICE 02/20/22
--- OUTSIDE RECORDS SUMMARY | 2024-10-13 01:26 | XMS_ITS | Encounter Summary ---
Author Organization [facility] Address [address] [place] [address] Phone Care Team Providers Care Erp Project Manager Name Role Phone Brett Chávez MD Primary Care Provider [phone] Cedric Martinez MD Primary Care Provider [phone] Sue Snow MD Primary Care Provider [phone] Jn Polo PAC Unavailable [phone] Eli Abbott MD Primary Care Provider [phone] Reason for Visit * Reason Comments Medication Refill Encounter Details Date Type Department Care Team (Late st Contact Info) Description 07/18/2020 Refill [facility] #[address] [place] [phone] Cruz Velasquez MD [address] [place] [address] Medication Refill Social History Tobacco Use Types Packs/Day Years Used Date Smoking Tobacco: Some Days Cigarettes 0.5 25 Smokeless Tobacco: Never Alcohol Use Standard Drinks/Week Comments No 0 (1 standard drink = 0.6 oz pur e alcohol) Sexually Active Control Partners Comments Yes Male Comments No Sex and Gender Information Value Date Recorded Sex Assigned at Female 01/27/2024 5:43 PM CDT Legal Sex Female 11:42 PM CDT Gender Identity Female 01/27/2024 5:43 PM CDT Sexual Orientation Not on file COVID-19 Exposure Response Date Recorded In the last month, have you been in contact with someone who was confirmed or suspected to have Coronavirus / COVID-19? No / Unsure 07/14/2020 11:34 PM TIME MOTION ANALYST documented as of this encounter Miscellaneous Notes * Telephone Encounter - Thelma Paez - 07/19/2020 7:58 AM CST Patient has not been seen in the past 6 months. MOTION ANALYST documented in this encounter Plan of Treatment Upcoming Encounters Date Type Department Care Team (Late st Contact Info) Description 10/13/2024 2:00 PM CDT Appointment [facility] MRI [address] [place] [address] Jn Polo, PAC [address] [facility]. [address] [place] [address] Discharge Disposition: Discharged to home or Selfcare documented as of this encounter Visit Diagnoses Not on filedocumented in this encounter Additional Health Concerns Infection Onset Date Last Indicated Resolved Time COVID - 19 08/01/2020 08/01/2020 08/05/2020 1:58 PM TIME MOTION ANALYST COVID - 19 08/17/2021 08/17/2021 08/20/2021 6:06 AM TIME MOTION ANALYST COVID - 19 Confirmed 08/17/2021 08/17/2021 022 12:16 AM TIME MOTION ANALYST COVID - 19 07/26/2022 09/17/2022 09/17/2022 8:04 AM TIME MOTION ANALYST COVID - 19 07/20/2024 07/20/2024 07/20/2024 9:02 PM TIME MOTION ANALYST documented as of this encounter Care Teams Erp Project Manager Relationship Specialty Start Date End Date Brett Chávez MD [address] [facility] [address] [place] [address] PCP - General Family Medicine 06/12/15 03/25/23 Cedric Martinez MD [address] [facility] [address] [place] [address] PCP - General Family Medicine 03/26/23 02/04/24 Sue Snow MD [address] [place] [address] PCP - General Internal Medicine 02/05/24 09/02/24 Eli Abbott MD [address] [place] [address] PCP - General Family Medicine 09/03/24 Jn Polo PAC [address] [place] [address] Physician Armature Winder Repairer Physician Armature Winder Repairer 07/13/24 documented as of this encounter
--- OUTSIDE RECORDS SUMMARY | 2024-10-13 01:26 | XMS_ITS | Encounter Summary ---
Author Organization [facility] Address [address] [facility] [place] [address] Care Team Providers Care Storeperson Name Role Phone Reyes, Ally Dunn RN Unavailable [phone] Brett Chávez MD Primary Care Provider [phone] Reason for Visit * Reason Onset Date Comments MEDICATION REFILL 01/28/2024 Encounter Details Date Type Department Care Team (Late st Contact Info) Description 01/28/2024 Refill [facility] - Infectious Disease [address] [place] [address], [facility] [place] [phone] Benradette Watson MD [address] [place] [address] [place] [address] MEDICATION REFILL Social History Tobacco Use Types Packs/Day Years Used Date Smoking Tobacco: Every Day Cigarettes 0.5 30 Smokeless Tobacco: Never Alcohol Use Standard Drinks/Week Comments Never 0 (1 standard drink = 0.6 oz pur e alcohol) AUDIT-C Answer Date Recorded Q1: How often do you have a drink containing alc ohol? Never 12/13/2023 Q2: How many drinks containi ng alcohol do you have on a typical day when you are drinking? Patient declined 12/13/2023 Q3: How often do you have si x or more drinks on one occasion? Patient declined 12/13/2023 Overall Financial Resource Strain (CARDIA) Answe r Date Recorded How hard is it for you to pa y for the very basics like food, housing, medical care, and heating? Patient declined 12/13/2023 PHQ-2 Answer Date Recorded Patient Health Questionnaire-2 Score 0 01/10/2024 [facility] - Occupational Stress Questionnaire Answer Date Recorded Do you feel stress - tense, restless, nervous, or anxious, or unable to sleep at night because your mind is troubled all the time - these days? Patient declined 12/13/2023 Hunger Vital Sign Answer Date Recorded Within the past 12 months, y ou worried that your food would run out before you got the money to buy more. Patient declined Within the past 12 months, t he food you bought just didn't last and you didn't have money to get more. Patient declined 05/2024 PRAPARE - Transportation Answer Date Re corded In the past 12 months, has l ack of transportation kept you from medical appointments or from getting medications? Patient declined 12/13/2023 In the past 12 months, has l ack of transportation kept you from meetings, work, or from getting things needed for daily living? Patient declined 12/13/2023 Housing Stability Vital Sign Answer Saul e Recorded In the last 12 months, was t here a time when you were not able to pay the mortgage or rent on time? Patient declined 12/13/19 24 In the last 12 months, how many places have you lived? 1 12/13/2023 In the last 12 months, was t here a time when you did not have a steady place to sleep or slept in a detention (including now)? Patient declined 12/13/2023 Sex and Gender Information Value Date Recorded Sex Assigned at Not on file Gender Identity Not on file Sexual Orientation Not on file documented as of this encounter Functional Status Functional Status Response Date of Assess ment Is person deaf or have serious hearing difficult y? No 12/13/2023 Is person blind or have serious difficulty seein g? No 12/13/2023 Does person have serious dif ficulty walking/climbing stairs? No 12/13/2023 Does person have difficulty dressing/bathing? No 12/13/2023 Does person have difficulty doing errands alone? No 12/13/2023 Cognitive Status Response Date of Assessm ent Does person have difficulty concentrating/remembering/making decisions? No 12/13/2023 documented as of this encounter Miscellaneous Notes * Telephone Encounter - Jean Darby MA - 01/31/2024 3:02 PM CDT Refill Request Tatiana Lopes [place] PATRICE: 01/10/2024 NOV scheduled: 02/21/2024 LRF: 01/10/2024 Qty Disp: 12tab # of refills: 0 Allergies: Allergies Allergen Reactions Fentanyl Anaphylaxis Tramadol Seizures Acetaminophen GI Discomfort Betadine [Povidone Iodine] Urticaria Contrast-Iodinated Agents For Ct/Other Rash and Itching Morphine Urticaria Shellfish Allergy Urticaria Sulfa Antibiotics Urticaria Pended Medication Order: Requested Prescriptions Pending Prescriptions Disp Refills HYDROmorphone (Dilaudid) 2 MG tablet 12 tablet 0 Sig: Take 1 (one) tablet by mouth every 6 hours as needed for Pain documented in this encounter Plan of Treatment Upcoming Encounters Date Type Department Care Team (Late st Contact Info) Description 10/21/2024 2:00 PM CDT Office Visit [facility] - Neurology [address] [place] [address], [facility] [address] Charanjit Jackson MD [address] [place] [phone] documented as of this encounter Visit Diagnoses Diagnosis Surgical site infection Lumbar pain Lumbago documented in this encounter Additional Health Concerns Infection Onset Date Last Indicated Resolved Time COVID-19 Under Investigation 10/08/2024 10/08/2024 10/08/2024 7:57 PM CONTINUOUS DRYOUT OPERATOR HELPER documented as of this encounter Care Teams Storeperson Relationship Specialty Start Date End Date Brett Chávez MD [address] [place] [phone] PCP - General 08/23/22 Ally Chambers, RN Dry Clipper Tender 09/12/16 documented as of this encounter
--- OUTSIDE RECORDS SUMMARY | 2024-10-13 01:26 | XMS_ITS | Encounter Summary ---
Author Organization [facility] Address [address] [place] [address] Phone Care Team Providers Care Film Tests Checker Name Role Phone Brett Chávez MD Primary Care Provider [phone] Cedric Martinez MD Primary Care Provider [phone] Sue Snow MD Primary Care Provider [phone] Jn Polo PAC Unavailable [phone] Eli Abbott MD Primary Care Provider [phone] Reason for Visit * Reason Comments Medication Refill Encounter Details Date Type Department Care Team (Late st Contact Info) Description 12/18/2019 [facility]ill [facility] [address] [place] [id number] Cruz Velasquez MD [address] [place] [address] Medication Refill Social History Tobacco [...] PM CDT Sexual Orientation Not on file documented as of this encounter Plan of Treatment Upcoming Encounters Date Type Department Care Team (Late st Contact Info) Description 10/13/2024 2:00 PM CDT Appointment [facility] [address] [place] [address] Jn Polo, PAC [address] [place] [address] Discharge Disposition: Discharged to home or Selfcare documented as of this encounter Visit Diagnoses Not on filedocumented in this encounter Additional Health Concerns Infection Onset Date Last Indicated Resolved Time COVID - 19 08/01/2020 08/01/2020 08/05/2020 1:58 PM DRY WALL APPLICATOR COVID - 19 08/17/2021 08/17/2021 08/20/2021 6:06 AM DRY WALL APPLICATOR COVID - 19 Confirmed 08/17/2021 08/17/2021 022 12:16 AM DRY WALL APPLICATOR COVID - 19 07/26/2022 09/17/2022 09/17/2022 8:04 AM DRY WALL APPLICATOR COVID - 19 07/20/2024 07/20/2024 07/20/2024 9:02 PM DRY WALL APPLICATOR documented as of this encounter Care Teams Film Tests Checker Relationship Specialty Start Date End Date Brett Chávez MD [address] [place] [address] PCP - General Family Medicine 06/12/15 03/25/23 Cedric Martinez MD [address] [place] [address] PCP - General Family Medicine 03/26/23 02/04/24 Sue Snow MD [address] [facility] [address] [place] [address] PCP - General Internal Medicine 02/05/24 09/02/24 Eli Abbott MD [address] [place] [address] PCP - General Family Medicine 09/03/24 Jn Polo PAC [address] [place] [address] Physician Staff Electrical Engineer Physician Staff Electrical Engineer 07/13/24 documented as of this encounter
--- OUTSIDE RECORDS SUMMARY | 2024-10-13 01:26 | XMS_ITS | Clinical Summary ---
Author Organization [facility] Address [address] [place] [address] Phone Care Team Providers Care Repair Service Clerk Name Role Phone Brett Chávez MD Primary Care Provider + Allergies Active Allergy Reactions Criticality Noted Date Comments Bee Pollens Other (See Comments) 03/21/2013 . Ceftriaxone Unknown 03/21/2013 Unclear if true reaction. Got 4 different meds at once Ciprofloxacin Itching Low 03/21/2013 Fentanyl Hives High 03/21/2013 Iodinated Contrast Media Rash Low 03/21/2013 Levofloxacin Rash Low 03/21/2013 Morphine Itching Low 03/21/2013 Sulfa (Sulfonamide Antibiotics) Rash Low 03/21/2013 Medications albuterol (PROAIR HFA) 90 mcg/Actuation Inhalation HFAA HFA inhaler Take 2 Puffs by inhalation every 6 hours as needed. Active PREDNISONE ORAL Take 5 mg by mouth daily. Active multivitamin (DAILY-FELY) tablet Take 1 Tablet by mouth daily. Active calcium citrate-vitamin d3 (CITRACAL D MAX) 315 mg- 250 unit Tablet Take 1 Tablet by mouth daily. Active carBAMazepine (CARBATROL) 100 mg Extended Release 12 hour capsule Take 200 mg by mouth 2 times daily. 4 Active lisinopriL (PRINIVIL) 10 mg tablet Take 10 mg by mouth daily. 4 Active cyclobenzaprine (FLEXERIL) 10 mg tablet Take 10 mg by mouth 3 times daily. Active naproxen (NAPROSYN) 250 mg tablet Take 250 mg by mouth 2 times daily with meals. Active melatonin 10 mg Tablet Take 10 mg by mouth daily at bedtime. Active ondansetron (ZOFRAN ODT) 4 mg Tablet, Rapid Dissolve Take 1 Tablet (4 mg) by mouth every 8 hours as needed for Nausea/Emesis. Dissolve tablet on top of tongue, then swallow with saliva. 15 Tablet 4 Active oxyCODONE (ROXICODONE) 5 mg tabletIndication s:Diverticulosis ,Lower abdominal pain, unspecified Take 1 Tablet (5 mg) by mouth every 4 hours as needed for Pain. Max Daily Amount: 30 mg 20 Tablet 4 Active Active Problems Problem Noted Date Diagnosed Date Intractable vomiting with nausea 04/04/2020 Acute cystitis with hematuria 04/04/2020 Left flank pain 04/04/2020 COPD (chronic obstructive pulmonary disease) Depression 04/04/2020 Tobacco abuse 04/04/2020 History of uterine cancer 04/04/2020 S/P lobectomy of lung 04/04/2020 S/P gastric bypass 04/04/2020 Fever 04/04/2020 Hematuria 04/04/2020 Cigarette dependence 10/08/2015 Sternum pain 03/24/2013 Soft tissue swelling of chest wall 03/24/2013 Seizure 03/21/2013 Hemoptysis 03/21/2013 Bronchitis 03/21/2013 DM (diabetes mellitus) 03/21/2013 Pain 03/21/2013 Encounters Date Type Department Care Team Description 10/12/2024 External Device Data [facility] ABSTRACTION Provider, Abstract 09/15/2024 External Device Data [facility] ABSTRACTION Provider, Abstract 09/01/2024 External Device Data [facility] ABSTRACTION Provider, Abstract 08/26/2024 External Device Data [facility] ABSTRACTION Provider, Abstract 08/26/2024 External Device Data [facility] ABSTRACTION Provider, Abstract 08/18/2024 External Device Data [facility] ABSTRACTION Provider, Abstract from Last 3 Months Family History Medical History Relation Name Comments Diabetes Other Relation Name Status Comments Other Social History Tobacco Use Types Packs/Day Years Used Date Smoking Tobacco: Every Day Cigarettes 0.3 20 E-Cigarette/Mist Inh alation Device Smokeless Tobacco: Never Tobacco Cessation:Ready to Q uit: No Alcohol Use Standard Drinks/Week Comments No 0 (1 standard drink = 0.6 oz pur e alcohol) Comments No Sex and Gender Information Value Date Recorded Sex Assigned at Not on file 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 Gender Identity Not on file Sexual Orientation Not on file Occupation Industry Job Start Date Job End Date Not on file Not on file Not on file Not on file Last Filed Vital Signs Vital Sign Reading Time Taken Comments Blood Pressure 130/85 11/04/2023 6:17 PM CDT Pulse 87 11/04/2023 6:17 PM CDT Temperature 36.7 C (98 F) 11/04/2023 6:17 PM CDT Respiratory Rate 18 11/04/2023 6:17 PM CDT Oxygen Saturation 100% 11/04/2023 6:17 PM CDT Inhaled Oxygen Concentration - - Weight 108.9 kg (240 lb) 11/04/2023 12:33 PM CDT Height 190.5 cm (6' 3 ) 11/04/2023 12:33 PM CDT Body Mass Index 30 11/04/2023 12:33 PM CDT Plan of Treatment Health Maintenance Due Date Last Done Comments DIABETES ANNUAL FOOT EXAM 1996 DIABETES ANNUAL RETINAL EXAM 1996 DIABETES MICROALBUMIN ANNUAL SCREEN 1996 LDL CHOLESTEROL ANNUAL 1996 HEPATITIS B VACCINES (1 of 3 - 19+ 3-dose series) 1997 CERVICAL CANCER SCREENING 2008 FIT-DNA Q 3 years 2023 FIT/FOBT Q 1 year 2023 Flex Sig/CT Colonography Q 5 years 2023 INFLUENZA VACCINE (#1) 2024 DIABETES HBA1C Q 6 MONTHS 04/16/20242023, 04/03/2020, 03/24/2013 BREAST CANCER SCREENING 10/30/2024 10/31/19 24, 06/02/2013 DTAP/TDAP/TD VACCINES (2 - T d or Tdap) 03/27/2031 03/27/2021 COLORECTAL SCREENING 08/13/2032 08/13/2022 Colorectal Cancer Screening 08/13/2032 HPV VACCINES Aged Out No longer eligi ble based on patient's age to complete this topic Procedures Procedure Name Priority Date/Time Associated Diagnosis Comments HEMOGLOBIN A1C Routine 04/03/2020 11:02 PM CDT from Last 3 Months or Most Recently Relevant to Health Maintenance Results * (ABNORMAL) HEMOGLOBIN A1C (04/03/2020 11:02 PM CDT) HEMOGLOBIN A1C 5.8(H) <5.7 % 04/04/2020 10:39 AM CDT [facility] EST. AVG GLUCOSE, A1C 120 mg/dL 04/04/2020 10:39 AM CDT [facility] Blood Venipuncture / Unknown 04/03/2020 11:02 PM CDT 04/03/2020 11:06 PM CDT Narrative [facility] - 04/04/2020 10:39 AM CDT HGB A1C INTERPRETATION NORMAL: <5.7% PRE-DIABETES: 5.7 - 6.4% DIABETES: 6.5% OR GREATER us Sol Solares NP CHEMISTRY ORDERABLES Final Resu lt [facility] CLIA# [id number] [address] [place] [address] from Last 3 Months or Most Recently Relevant to Health Maintenance Insurance [employer] [place] Advance Directives For more information, please contact: [phone] * Full Code (Latest Code Status on File) Date Activated Date Inactivated Comments 04/04/2020 5:25 AM 04/05/2020 1:27 AM * Full Code Date Activated Date Inactivated Comments 03/27/2013 2:24 PM 03/28/2013 7:44 PM * Full Code Date Activated Date Inactivated Comments 03/21/2013 4:36 AM 03/27/2013 2:24 PM Care Teams Repair Service Clerk Relationship Specialty Start Date End Date Brett Chávez MD [address] [phone] PCP - General Family Practice 04/02/20
--- OUTSIDE RECORDS SUMMARY | 2024-10-13 01:26 | XMS_ITS | Referral Summary ---
Author Organization [facility] Address [address] [place] [address] Care Team Providers Care Front Maker Name Role Phone Denver Veliz MD Unavailable Eriberto Skelton MD Unavailable Dalton Fragoso MD Unavailable [phone] Eli Abbott MD Primary Care Provider Encounters Date Type Department Care Team Description 10/07/2024 Telephone [facility] Minimally Invasive Surgery [facility] Medical Office Building [address] [place] [address] Amy Camargo RN 09/29/2024 8:57 PM HOME HEALTH ATTENDANT - 09/29/2024 11:59 PM HOME HEALTH ATTENDANT Hospital Encounter [facility] Emergency, Room R Discharge Disposition: Discharge to home or self care 09/29/2024 9:10 PM HOME HEALTH ATTENDANT - 09/29/2024 11:10 PM HOME HEALTH ATTENDANT Emergency [facility] Emergency Department [address] [place] [address] Cristina Veras MD Breakthrough seizure (HCC) (Primary Dx) Discharge Disposition: Discharge to home or self care 09/09/2024 Telephone [facility] [address] [place] [address] [address] [place] [address] Tari Elias MA 09/09/2024 1:15 PM HOME HEALTH ATTENDANT Office Visit [facility] [address] [facility] [address] [place] [address] Chhaya Saxena NP Carpal tunnel syndrome, bilateral (Primary Dx); Transient ischemic attack (TIA); Recurrent syncope; Seizures, generalized convulsive (HCC) 08/28/2024 3:33 PM HOME HEALTH ATTENDANT - 08/28/2024 11:59 PM HOME HEALTH ATTENDANT Hospital Encounter [facility] Imaging Center [address] [place] [address] Acute bronchitis, unspecified organism Discharge Disposition: Discharge to home or self care 08/12/2024 Orders Only [facility] [address] [place] [address] [address], [place] [address] Brennen Daley MD 08/11/2024 7:53 PM HOME HEALTH ATTENDANT - 08/11/2024 11:10 PM [facility] Emergency Department 1 [place] [address] Chad David MD [place], MD Cristina Myalgia (Primary Dx); Acute cough Discharge Disposition: Discharge to home or self care 08/10/2024 2:08 PM HOME HEALTH ATTENDANT - 08/10/2024 7:05 PM [facility] Emergency Department [address] [place] [address] Seizure (HCC) (Primary Dx); Pneumonia of left lower lobe due to infectious organism Discharge Disposition: Discharge to home or self care 08/08/2024 6:50 PM HOME HEALTH ATTENDANT - 08/08/2024 6:59 PM [facility] Emergency Department [address] [place] [address] Discharge Disposition: Left without being seen 08/08/2024 1:34 AM HOME HEALTH ATTENDANT - 08/08/2024 4:27 AM [facility] Emergency Department 1 [place] [address] Discharge Disposition: Left without being seen 08/07/2024 Telephone [facility] [address] [facility] [address], [place] [address] Tari Elias MA 08/03/2024 6:59 PM HOME HEALTH ATTENDANT - 08/03/2024 10:59 PM [facility] Emergency Department 1 [place] [address] COVID (Primary Dx) Discharge Disposition: Discharge to home or self care 07/26/2024 6:40 PM HOME HEALTH ATTENDANT - 07/26/2024 8:53 PM [facility] Emergency [facility] Emergency Department 1 [place] [address] Joseph Ford MD Breakthrough seizure (HCC) (Primary Dx) Discharge Disposition: Discharge to home or self care 07/19/2024 9:58 PM HOME HEALTH ATTENDANT - 07/19/2024 11:19 PM [facility] Emergency [facility] Emergency Department [address] [place] [address] Nilesh Mejia MD Chronic right shoulder pain (Primary Dx); Decreased vascular flow Discharge Disposition: Discharge to home or self care from Last 3 Months Allergies Active Allergy Reactions Criticality Noted Date Comments Acetaminophen Nausea only,Nausea & Vomiting Low 04/29/2023 Note: LIVER PAIN Bee Pollen Anaphylaxis High Carisoprodol Unknown 07/22/2023 Ceftriaxone Rash High Reaction: rash, , Ciprofloxacin Rash Medium Reaction: Rash, , , Fentanyl Shortness of breath High Reaction: rash, , , Iodinated Contrast Media Hives,Other (See comments) Medium 03/21/2013 Unknown Iodine Rash,Hives Medium 11/05/2018 Reaction: Rash, , Levofloxacin Rash Medium Reaction: Rash, , Morphine Hives,Itching Medium 03/21/2013 Pt tolerates dilaudid Oxycodone Nausea & Vomiting Low 11/29/2023 Oxycodone-Acetaminophen Nausea only Low 07/22/2023 Shellfish Hives Medium 12/21/2021 Sulfa (Sulfonamide Antibiotics) Rash,Itching,Other (See comments) Medium 03/21/2013 Reaction: Rash, , unknown Sulfamethoxazole-Trimet hoprim Rash Medium Tramadol Other (See comments) Low 12/15/2019 Pt has tolerated dilaudid Reaction: seizure Venom-Honey Bee Anaphylaxis High 09/15/2016 Medications albuterol HFA (PROVENTIL HFA,VENTOLIN HFA,PROAIR HFA) 90 mcg/actuation inhaler Inhale 2 puffs every 6 (six) hours as needed for wheezing Active melatonin 10 mg tablet Take 1 tablet (10 mg total) by mouth daily Active multivitamin with minerals capsule Take 1 tablet by mouth daily Active cyclobenzaprine (FLEXERIL) 10 mg tablet Take 1 tablet (10 mg total) by mouth 3 (three) times a day as needed for muscle spasms for up to 14 days 42 tablet 11/19/19 24 Active ondansetron ODT (ZOFRAN-ODT) 4 mg disintegrating tablet Take 1 tablet (4 mg total) by mouth every 8 (eight) hours as needed for nausea or vomiting (Take along with oxycodone to help with nausea) 20 tablet 11/19/19 24 Active atorvastatin (LIPITOR) 40 mg tablet Take 1 tablet (40 mg total) by mouth daily 90 tablet 3 01/17/20 24 025 Active ketorolac (TORADOL) 10 mg tablet Take 1 tablet (10 mg total) by mouth every 6 (six) hours as needed for pain 20 tablet 04/06/20 24 Active levETIRAcetam (KEPPRA) 500 mg tablet Take 1 tablet (500 mg total) by mouth 2 (two) times a day 60 tablet 3 08/12/19 25 026 Active brivaracetam (Briviact) 50 mg tabletIndications :Focal Epilepsy Take 1 tablet (50 mg total) by mouth 2 (two) times a day Take one tablet of 50 mg tablet by mouth twice a day 60 tablet 3 09/09/19 25 Active carBAMazepine ER (CARBATROL) 100 mg 12 hr capsuleIndication s:Epilepsy, unspecified, not intractable, without status epilepticus (HCC) TAKE ONE CAPSULE TWICE A DAY FOR ONE WEEK, THEN TAKE TWO CAPSULES TWICE A DAY. 120 capsule 3 09/21/19 25 Active carBAMazepine ER (CARBATROL) 100 mg 12 hr capsule Take one capsule twice a day for one week, then take two capsules twice a day. 120 capsule 3 09/13/19 24 025 Discontinued Active Problems Problem Noted Date Diagnosed Date Seizures, generalized convulsive 09/09/2024 Rapid palpitations 05/24/2024 Acute foot pain, left 04/19/2024 Hyperlipidemia 04/14/2024 Family history of colon cancer in mother 024 Encounter for screening colonoscopy 01/30/2024 Postoperative infection 01/28/2024 Colon cancer screening 01/16/2024 Assessment & Plan (01/16/2024 1:26 PM CDT): Referral to GI for screening colonoscopy Vitamin D deficiency 01/16/2024 Assessment & Plan (01/16/2024 1:27 PM CDT): Continue vitamin-D supplement. Check vitamin-D level Screening for thyroid disorder 01/16/2024 Melena 12/24/2023 Normocytic anemia 12/24/2023 Abscess after procedure 12/20/2023 PICC (peripherally inserted central catheter) [facility] 12/20/2023 Transient ischemic attack (TIA) 11/29/2023 Numbness and tingling of left upper extremity Postoperative back pain 11/27/2023 Osteopenia 11/26/2023 Overview (01/16/2024): dexa 07/27 Mixed anxiety and depressive disorder 11/26/2023 Overview (01/16/2024): -pt has psych at [facility] Spinal stenosis of lumbar re gion without neurogenic claudication 11/19/2023 Vitamin B12 deficiency 10/18/2023 Assessment & Plan (01/16/2024 1:26 PM CDT): Continue vitamin-B supplement. Vitamin B12 level ordered Assessment & Plan (10/18/2023 11:12 AM CDT): Ordered vitamin B12 level. Has a history of gastric bypass. Carpal tunnel syndrome, bilateral 10/18/2023 Assessment & Plan (10/18/2023 11:08 AM CDT): Surgery for carpal tunnel release scheduled on 10/22/2023. Pre-operative general physical examination 10/17 Assessment & Plan (10/18/2023 11:13 AM CDT): Given medical clearance in conjunction with clearance by neurologist to proceed with left carpal tunnel release on 10/22/2023 as scheduled Class 1 obesity due to exces s calories with body mass index (BMI) of 32.0 to 32.9 in adult 09/16/2023 Assessment & Plan (10/18/2023 11:09 AM CDT): BMI 32.61. Discussed diet and exercise. Encourage weight loss Assessment & Plan (09/16/2023 3:03 PM HOME HEALTH ATTENDANT): BMI 32.20 Discussed ADA diet Encourage exercising as tolerated Recommend weight loss Abrasion of forearm, left 09/16/2023 Assessment & Plan (09/16/2023 2:58 PM HOME HEALTH ATTENDANT): Abrasion is healing well without signs or symptoms of infection. Complete the Augmentin. Continue wound care as discussed Bilateral leg numbness 04/23/2023 Assessment & Plan (09/16/2023 3:00 PM HOME HEALTH ATTENDANT): As a result of bilateral sciatica. Accelerated idioventricular rhythm 04/17/2023 Mixed diabetic hyperlipidemi a associated with type 2 diabetes mellitus 04/17/2023 Assessment & Plan (01/16/2024 1:26 PM CDT): Continue to limit fats in diet and take atorvastatin 20 mg at HS. Lipid panel ordered Hyperkalemia 04/08/2023 Dehydration 04/08/2023 Lactic acid acidosis 04/08/2023 Spinal stenosis at L4-L5 level 04/02/2023 Herniation of right side of L4-L5 intervertebral disc 04/02/2023 Assessment & Plan (09/16/2023 3:05 PM HOME HEALTH ATTENDANT): Scheduled for spinal fusion on 10/02/[address] Skelton Neurological abnormality 04/01/2023 Assessment & Plan (04/01/2023 3:45 PM CDT): Patient with longstanding history of relapsing and remitting neurological abnormalities and history of multiple sclerosis raise suspicion for the same. Pt's PCP had already ordered MRI of the spine for evaluation of this and will order as inpatient to expedite this process. - MRI full spine W WO contrast Compression fracture of lumb ar spine, non-traumatic, with routine healing, subsequent encounter 04/01/2023 Assessment & Plan (04/01/2023 3:51 PM CDT): L2 and L3 compression fracture secondary to breakthrough seizure. Pt in considerable amount of pain. 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 Boo, neurologist on 10/16/2023 with medication change. He is given her written clearance to proceed with her carpal tunnel surgeries. Assessment & Plan (09/16/2023 3:01 PM HOME HEALTH ATTENDANT): Last reported seizure was on 09/07/[address] Barraza with last office visit on 09/13/2023 Patient reports she is not allowed to operate a motor vehicle for 6 months Assessment & Plan (04/02/2023 2:28 PM CDT): Breakthrough seizure in longstanding history of epilepsy despite reported Keppra compliance. Upon chart review from her clinic visits with Dr. Martinez, it is noted she had thrown out all her anti-epileptics just over a week prior to her admission which is when she also reported a sudden increase in the seizures she has had. - Neurology consulted - lacosamide 100 mg b.i.d. initiated - Continue keppra - Keppra levels pending - seizure precautions Recurrent syncope 02/15/2023 Numbness and tingling of lower extremity 023 Assessment & Plan (10/18/2023 10:55 AM CDT): This is being addressed by her neurologist GERD without esophagitis 02/14/2023 History of uterine cancer 02/14/2023 Assessment & Plan (09/16/2023 3:05 PM HOME HEALTH ATTENDANT): Status post hysterectomy with BSO Assessment & Plan (04/01/2023 3:47 PM CDT): S/p total hysterectomy Positive D-dimer 12/21/2022 Gallbladder with possible hydrops and stone 12/03 Diet-controlled diabetes mellitus 12/21/2022 Assessment & Plan (10/18/2023 10:53 AM CDT): Well controlled. Tries to follow an ADA diet. Her hemoglobin A1c on 10/15/2023 was 5.5%. No current medications. Assessment & Plan (09/16/2023 3:04 PM HOME HEALTH ATTENDANT): Patient can not recall her last A1c results. She does not want any labs ordered at this time. Hematemesis with nausea 12/20/2022 Enlarged gallbladder 12/20/2022 Epigastric pain 05/04/2021 Sprain of right knee 12/24/2018 TMJ (sprain of temporomandibular joint), initial encounter 04/17/2018 Panlobular emphysema 02/13/2018 Pulmonary hypertension 02/13/2018 Obesity with body mass index 30 or greater 04/18 Assessment & Plan (01/16/2024 1:28 PM CDT): BMI 30.61. Has had a gastric bypass. Continue healthy diet. Encourage increased exercise and further weight loss. Assessment & Plan (10/18/2023 10:54 AM CDT): BMI 32.61 Discussed diet and exercise. Encourage weight loss History of bariatric surgery 04/05/2016 AMANDA (obstructive sleep apnea) 11/10/2015 Cigarette nicotine dependence, uncomplicated 12/2015 Assessment & Plan (10/18/2023 10:53 AM CDT): Continues to smoke 1/2 pack per day, does not want to quit at this time. We will discuss it at her next office visit Assessment & Plan (09/16/2023 3:02 PM HOME HEALTH ATTENDANT): She currently smokes 1/2 pack per day for over 30 years Has had multiple scans, history of right upper lobectomy. Defer low dose CT lungs at this time Type 2 diabetes mellitus 12/19/2013 Overview (11/07/2016): DMII WO CMP NT ST UNCNTR Assessment & Plan (01/16/2024 1:25 PM CDT): Continue to limit carbohydrates in diet. Hemoglobin A1c on 10/15/2023 was 5.5%. Labs ordered. Continue to check feet daily and get annual dilated eye exam Chronic bronchitis 12/19/2013 Overview (11/08/2016): COPD (chronic obstructive pulmonary disease) Chronic obstructive pulmonary disease 12/19/2013 Overview (07/22/2023): Last Assessment & Plan: Condition: stable Reviewed trigger avoidance and reviewed proper use of inhalers and rescue medications. Reviewed concerning signs/symptoms and ER precautions. Follow up in: three months Assessment & Plan (10/18/2023 11:11 AM CDT): Katherin. Has albuterol HFA for p.r.n. use. Encouraged smoking cessation. 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 Fragoso No current medications Denies any SI/HI/SH Anxiety 01/15/2008 Assessment & Plan (09/16/2023 3:00 PM HOME HEALTH ATTENDANT): Stable. Managed by Dr. Fragoso. No current medications. Discussed relaxation techniques Hypertension 01/15/2008 Assessment & Plan (01/16/2024 1:25 PM CDT): BP at goal 110/74. Continue to limit salt in diet and take lisinopril 10 mg daily. Labs ordered Assessment & Plan (10/18/2023 10:54 AM CDT): Blood pressure stable. Blood pressure was 132/86 upon examination. Continue lisinopril 10 mg daily and limit salt in diet. Encourage routine exercise Assessment & Plan (09/16/2023 3:07 PM HOME HEALTH ATTENDANT): BP 135/88 in the office today She reports up to 190/110 at home We will start her on lisinopril 10 mg daily Limit salt in diet Follow-up in 1 month to re-evaluate efficacy Chest pain in adult Dyspnea on exertion Nausea and vomiting Resolved Problems Problem Noted Date Diagnosed Date Resolved Date Carpal tunnel syndrome, left 10/04/2023 10/17/2023 Carpal tunnel syndrome, right 06/11/2023 03/11/2024 Assessment & Plan (10/18/2023 10:56 AM CDT): Surgery for carpal tunnel release will be scheduled sometime after she has the left 1 done. Chronic inflammatory demyeli nating polyradiculoneuropathy 05/27/2023 10/17/2023 Right leg pain 04/16/2023 10/17/2023 Lower extremity numbness 04/08/2023 Assessment & Plan (09/16/2023 3:07 PM HOME HEALTH ATTENDANT): See above Seizure 03/31/2023 10/17/2023 Right arm pain 02/15/2023 10/17/2023 Right arm weakness 02/15/2023 Tobacco use disorder 02/13/2018 024 Assessment & Plan (09/16/2023 3:08 PM HOME HEALTH ATTENDANT): Currently smokes 1/2 pack per day Not interested in quitting at this time but will discuss at next office visit Seizure disorder 12/19/2013 10/17/2023 Overview (11/08/2016): Seizure disorder Assessment & Plan (09/16/2023 3:08 PM HOME HEALTH ATTENDANT): Managed by Dr. Barraza Immunizations Immunization Administration Dates Next Due Influenza, Unspecified 09/29/2024(Deferr ed: Patient Refused),10/25/2023(Deferred: Patient Refused),05/15/2023(Deferred: Patient Refused),05/13/2023(Deferred: Patient Refused) Tdap 02/05/2024,03/27/2021 Social History Tobacco Use Types Packs/Day Years Used Date Smoking Tobacco: Every Day Cigarettes 0.8 30 Smokeless Tobacco: Never Tobacco Cessation:Ready to Q uit: Not Asked; Counseling Given: Not Answered Comments:1/2 pack daily Alcohol Use Standard Drinks/Week Comments No 0 (1 standard drink = 0.6 oz pur e alcohol) [facility] [employer] Pure Mineralsities Answer Date Recorded In the past 12 months has e electric, gas, oil, or water Diarize threatened to shut off services in your home? Yes 04/20/2024 Social Connection and Isolat ion Panel [NHANES] Answer Date Recorded In a typical week, how many times do you talk on the phone with family, friends, or neighbors? More than three times a week 04/20/2024 How often do you get togethe r with friends or relatives? More than three times a week 04/20/2024 How often do you attend chur ch or latter-day services? Never 04/20/2024 Do you belong to any clubs o r organizations such as taoism groups, unions, fraternal or athletic groups, or school groups? No 04/20/2024 How often do you attend meet ings of the clubs or organizations you belong to? Never 04/20/2024 Are you , , di vorced, , never , or living with a partner? 04/20/2024 AUDIT-C Answer Date Recorded Q1: How often do you have a drink containing alcohol? Never 11/12/2023 Q2: How many drinks containi ng alcohol do you have on a typical day when you are drinking? Patient does not drink Q3: How often do you have si x or more drinks on one occasion? Never 11/12/2023 Overall Financial Resource Strain (CARDIA) Answe r Date Recorded How hard is it for you to pa y for the very basics like food, housing, medical care, and heating? Somewhat hard 04/20/2024 PHQ-2 Answer Date Recorded PHQ-2 Total Score (If total score is 3 or more points, staff should administer the PHQ-9) 2 09/16/2023 Hunger Vital Sign Answer Date Recorded Within the past 12 months, y ou worried that your food would run out before you got the money to buy more. Never true 04/20/20 24 Within the past 12 months, t he food you bought just didn't last and you didn't have money to get more. Never true 04/20/2024 PRAPARE - Transportation Answer Date Re corded In the past 12 months, has l ack of transportation kept you from medical appointments or from getting medications? No 04/05 In the past 12 months, has l ack of transportation kept you from meetings, work, or from getting things needed for daily living? No 04/20/2024 Housing Stability Vital Sign Answer Saul e [...] place to sleep or slept in a correction (including now)? No 04/24/2023 Housing Stability Vital Sign Answer Saul e Recorded In the last 12 months, was t here a time when you were not able to pay the mortgage or rent on time? No 04/20/2024 In the past 12 months, how m any times have you moved where you were living? 0 04/20/2024 At any time in the past 12 m [facility], were you homeless or living in a correction (including now)? No 04/20/2024 Personal Safety Answer Date Recorded Have you ever been in or are you currently in a harmful physical or emotional relationship or is someone making you feel afraid or unsafe? Denies 09/29/2024 Comments No Sex and Gender Information Value Date Recorded Sex Assigned at Not on file Legal Sex Female 12:47 AM HOME HEALTH ATTENDANT Gender Identity Not on file Sexual Orientation Not on file Last Filed Vital Signs Vital Sign Reading Time Taken Comments Blood Pressure 122/71 09/29/2024 10:30 PM HOME HEALTH ATTENDANT Pulse 74 09/29/2024 10:30 PM HOME HEALTH ATTENDANT Temperature 36.6 C (97.9 F) 09/29/2024 9:16 PM HOME HEALTH ATTENDANT Respiratory Rate 22 09/29/2024 9:1 6 PM HOME HEALTH ATTENDANT Oxygen Saturation 99% 09/29/2024 10: 30 PM HOME HEALTH ATTENDANT Inhaled Oxygen Concentration - - Weight 116.5 kg (256 lb 13.4 oz) 09/29/2024 9:21 PM HOME HEALTH ATTENDANT Height 190 cm (6' 2.8 ) 09/29/2024 9:21 PM HOME HEALTH ATTENDANT Body Mass Index 32.27 09/29/2024 9:21 PM HOME HEALTH ATTENDANT Plan of Treatment Upcoming Encounters Date Type Department Care Team (Late st Contact Info) Description 11/17/2024 8:00 AM CDT Hospital Encounter [address] [address] Timothy White MD [address] [place] [address] DR [address] [place] [id number] 11/17/2024 8:00 AM CDT - 11/17/2024 8:30 AM CDT Surgery [address] [address] Timothy White MD [address] [place] [address] DR [address] [address] [place] [id number] COLONOSCOPY Scheduled Procedures Name Priority Associated Diagnoses Date/Ti me COLONOSCOPY Family history of colon cancer in mother Encounter for screening colonoscopy 11/17/2024 8:00 AM CDT Procedures Procedure Name Priority Date/Time Associated Diagnosis Comments EGFR STAT 09/29/2024 9:56 PM HOME HEALTH ATTENDANT DIFFERENTIAL AUTO STAT 09/29/2024 9:5 6 PM HOME HEALTH ATTENDANT COMPREHENSIVE METABOLIC PANEL STAT 09/29/2024 9:56 PM HOME HEALTH ATTENDANT CBC WITH AUTO DIFFERENTIAL STAT 09/29/2024 9:56 PM HOME HEALTH ATTENDANT XR CHEST PA LATERAL 2 VIEWS Schedule Routine, Read Routine (OP Routine) 08/28/2024 3:44 PM HOME HEALTH ATTENDANT Acute bronchitis, unspecified organism XR CHEST 1 VIEW ED 08/11/2024 9:02 PM HOME HEALTH ATTENDANT DIFFERENTIAL AUTO Routine 08/11/2024 8:3 4 PM HOME HEALTH ATTENDANT CBC WITH AUTO DIFFERENTIAL Routine 08/11/2024 8:34 PM HOME HEALTH ATTENDANT EGFR STAT 08/11/2024 8:34 PM HOME HEALTH ATTENDANT PRO B-TYPE NATRIURETIC PEPTIDE STAT 08/11/2024 8:34 PM HOME HEALTH ATTENDANT COMPREHENSIVE METABOLIC PANEL STAT 08/11/2024 8:34 PM HOME HEALTH ATTENDANT ECG 12-LEAD Routine 08/11/2024 7:57 PM HOME HEALTH ATTENDANT XR CHEST 1 VIEW ED 08/10/2024 6:46 PM HOME HEALTH ATTENDANT URINALYSIS AND REFLEX TO MICROSCOPIC AND CULTURE Routine 08/10/2024 4:13 PM HOME HEALTH ATTENDANT EGFR STAT 08/10/2024 3:41 PM HOME HEALTH ATTENDANT DIFFERENTIAL AUTO STAT 08/10/2024 3:4 1 PM HOME HEALTH ATTENDANT CBC WITH AUTO DIFFERENTIAL STAT 08/10/2024 3:41 PM HOME HEALTH ATTENDANT CARBAMAZEPINE LEVEL, TOTAL STAT 08/10/2024 3:41 PM HOME HEALTH ATTENDANT COMPREHENSIVE METABOLIC PANEL STAT 08/10/2024 3:41 PM HOME HEALTH ATTENDANT SEPSIS LACTATE WITH REFLEX Routine 08/10/2024 2:54 PM HOME HEALTH ATTENDANT ECG 12-LEAD STAT 08/08/2024 4:28 PM HOME HEALTH ATTENDANT EGFR STAT 08/08/2024 3:26 AM HOME HEALTH ATTENDANT DIFFERENTIAL AUTO STAT 08/08/2024 3:2 6 AM HOME HEALTH ATTENDANT TROPONIN T HIGH-SENSITIVITY SERIES (BASELINE, 2HR, 4HR, 6HR) STAT 08/08/2024 3:26 AM HOME HEALTH ATTENDANT COMPREHENSIVE METABOLIC PANEL STAT 08/08/2024 3:26 AM HOME HEALTH ATTENDANT CBC WITH AUTO DIFFERENTIAL STAT 08/08/2024 3:26 AM HOME HEALTH ATTENDANT XR CHEST PA LATERAL 2 VIEWS ED 08/07/2024 11:43 PM HOME HEALTH ATTENDANT ECG 12-LEAD Routine 08/07/2024 10:[address] CHEST PE W CONTRAST ED 08/03/2024 9:31 PM HOME HEALTH ATTENDANT INFLUENZA A/B, RSV, AND COVID-19 PCR Routine 08/03/2024 6:58 PM HOME HEALTH ATTENDANT EGFR STAT 08/03/2024 6:57 PM HOME HEALTH ATTENDANT DIFFERENTIAL AUTO STAT 08/03/2024 6:5 7 PM HOME HEALTH ATTENDANT TROPONIN T HIGH-SENSITIVITY SERIES (BASELINE, 2HR, 4HR, 6HR) STAT 08/03/2024 6:57 PM HOME HEALTH ATTENDANT CBC WITH AUTO DIFFERENTIAL STAT 08/03/2024 6:57 PM HOME HEALTH ATTENDANT COMPREHENSIVE METABOLIC PANEL STAT 08/03/2024 6:57 PM HOME HEALTH ATTENDANT ECG 12-LEAD STAT 08/03/2024 6:50 PM HOME HEALTH ATTENDANT EGFR STAT 07/26/2024 7:01 PM HOME HEALTH ATTENDANT DIFFERENTIAL AUTO STAT 07/26/2024 7:0 1 PM HOME HEALTH ATTENDANT COMPREHENSIVE METABOLIC PANEL STAT 07/26/2024 7:01 PM HOME HEALTH ATTENDANT CBC WITH AUTO DIFFERENTIAL STAT 07/26/2024 7:01 PM HOME HEALTH ATTENDANT ECG 12-LEAD STAT 07/19/2024 9:23 PM HOME HEALTH ATTENDANT HEMOGLOBIN A1C Routine 01/16/2024 10:50 AM CDT Mixed diabetic hyperlipidemia associated with type 2 diabetes mellitus (HCC) LIPID PANEL Routine 01/16/2024 10:50 AM CDT Mixed diabetic hyperlipidemia associated with type 2 diabetes mellitus (HCC) ALBUMIN CREATININE RATIO, URINE Routine 01/16/2024 10:50 AM CDT Mixed diabetic hyperlipidemia associated with type 2 diabetes mellitus (HCC) SCREENING MAMMOGRAM BILATERAL W [facility] Schedule Routine, Read Routine (OP Routine) 10/31/2023 3:19 PM CDT Screening mammogram for breast cancer HEPATITIS PANEL, ACUTE Routine 05/16/2014 5:29 PM CDT from Last 3 Months or Most Recently Relevant to Health Maintenance Results * eGFR (09/29/2024 9:56 PM HOME HEALTH ATTENDANT) eGFR >90 >=60 mL/min/1. 73 m2 Comment: Interpretive Data Reference Interval Normal >/= 90 mL/min/1.73m2 Mildly decreased* 60 - 89 mL/min/1.73m2 Mildly to moderately decreased 45 - 59 mL/min/1.73m2 Moderately to severely decreased 30 - 44 mL/min/1.73m2 Severely decreased 15 - 29 mL/min/1.73m2 Kidney Failure < 15 mL/min/1.73m2 *Relative to young adult level Estimated glomerular filtration rate is determined by the 2020 CKD-EPI equation recommended by the National Kidney Foundation (A Unifying Approach to GFR Estimation: Recommendations of the NKF-ASK Task Force on Reassessing the Inclusion of Race in Diagnosing Kidney Disease, JASN 2020). The CKD-EPI equation should not be used for patients with unstable renal function and has not been validated in children and those over 70. Current interpretive data was last reviewed 2021. Blood 09/29/2024 9:56 PM HOME HEALTH ATTENDANT 09/29/2024 9:57 PM HOME HEALTH ATTENDANT us Cristina Veras MD LAB BLOOD ORDERABLES Final Resul t [facility] ([place]) 1 [facility] Department [place] [address] * Differential, auto (09/29/2024 9:56 PM HOME HEALTH ATTENDANT) Neutrophil abs 3.2 1.5 - 6.5 K/cumm Imm gran abs 0.0 0.0 - 0.1 K/cumm [facility] ([place]) Lymphocyte abs 2.0 0.8 - 3.3 K/cumm [facility]) Monocyte abs 0.5 0.2 - 0.8 K/cumm [facility]) Eosinophil abs 0.2 0.0 - 0.5 K/cumm [facility]) Basophil abs 0.1 0.0 - 0.1 K/cumm [facility]) Neutrophil pct 53.7 % [facility] ([place]) Comment: Interpretive Data Percent cell count reference ranges are not reported, since discordance with absolute values may lead to misinterpretation of CBC data. Current Interpretive Data was last revised on 2017. Imm gran pct 0.3 % [facility] ([place]) Comment: Interpretive Data Percent cell count reference ranges are not reported, since discordance with absolute values may lead to misinterpretation of CBC data. Current Interpretive Data was last revised on 2017. Lymphocyte pct 34.2 % [facility] ([place]) Comment: Interpretive Data Percent cell count reference ranges are not reported, since discordance with absolute values may lead to misinterpretation of CBC data. Current Interpretive Data was last revised on 2017. Monocyte pct 7.7 % [facility] ([place]) Comment: Interpretive Data Percent cell count reference ranges are not reported, since discordance with absolute values may lead to misinterpretation of CBC data. Current Interpretive Data was last revised on 2017. Eosinophil pct 3.2 % [facility] ([place]) Comment: Interpretive Data Percent cell count reference ranges are not reported, since discordance with absolute values may lead to misinterpretation of CBC data. Current Interpretive Data was last revised on 2017. Basophil pct 0.9 % [facility] ([place]) Comment: Interpretive Data Percent cell count reference ranges are not reported, since discordance with absolute values may lead to misinterpretation of CBC data. Current Interpretive Data was last revised on 2017. Blood 09/29/2024 9:56 PM HOME HEALTH ATTENDANT 09/29/2024 9:57 PM HOME HEALTH ATTENDANT us Cristina Veras MD LAB BLOOD ORDERABLES Final Resul t [facility] ([place] Department [place] [address] * (ABNORMAL) CBC with auto differential (09/29/2024 9:56 PM HOME HEALTH ATTENDANT) WBC 5.9 3.8 - 9.9 K/cumm Hgb 10.2(L) 11.9 - 15.5 g/dL [facility]) Hct 33.3(L) 35.6 - 45.5 % [facility]) Plt 394 150 - 400 K/cumm [facility]) MPV 9.8 9.1 - 12.3 fL [facility] RBC 4.29 3.90 - 5.20 M/cumm [facility] [place]) MCV 77.6(L) 81.3 - 96.4 fL [facility]) MCH 23.8(L) 27.1 - 33.3 pg [facility]) MCHC 30.6(L) 32.3 - 35.7 g/dL [facility]) RDW CV 19.3(H) 11.1 - 14.9 % [facility]) RDW SD 53.4(H) 35.7 - 48.1 fL [facility]) NRBC abs 0.00 0.00 - 0.01 K/cumm [facility]) Blood 09/29/2024 9:56 PM HOME HEALTH ATTENDANT 09/29/2024 9:57 PM HOME HEALTH ATTENDANT us Cristina Veras MD LAB BLOOD ORDERABLES Final Resul t [facility] ([place] Department [place] [address] * Comprehensive metabolic panel (09/29/2024 9:56 PM HOME HEALTH ATTENDANT) Sodium 137 135 - 145 mmol/L Potassium, pl 3.9 3.3 - 4.9 mmol/L [facility] Chloride 100 97 - 110 mmol/L [facility] CO2 24 22 - 32 mmol/L [facility]) Anion gap 13 2 - 15 mmol/L [facility] BUN 13 6 - 25 mg/dL [facility]) Creatinine 0.66 0.60 - 1.10 mg/dL [facility]) Glucose 97 70 - 199 mg/dL [facility]) Comment: Interpretive Data Fasting glucose >/= 126 mg/dl is diagnostic for diabetes. Fasting is defined as no caloric intake for at least 8 hours. Fasting glucose between 100 mg/dl to 125 mg/dl is diagnostic of prediabetes. In a patient with classic symptoms of hyperglycemia or hyperglycemic crisis, a random glucose >/= 200 mg/dl is diagnostic for diabetes. In the absence of unequivocal hyperglycemia, results should be confirmed by repeat testing. The classification and Diagnosis of Diabetes Diabetes Care 202; 46: S19-S40. Current interpretive data was last revised 2022. Calcium 9.4 8.5 - 10.3 mg/dL [facility]) Bilirubin, total <0.2 0.1 - 1.2 mg/dL [facility]) Protein, pl 6.8 6.5 - 8.5 g/dL [facility]) Albumin 4.3 3.5 - 5.0 g/dL [facility]) Alk phos 110 40 - 130 Units/L [facility]) ALT 19 7 - 45 Units/L [facility]) AST 28 10 - 45 Units/L [facility]) Comment:Slightly Hemolyzed S pecimen Blood 09/29/2024 9:56 PM HOME HEALTH ATTENDANT 09/29/2024 9:57 PM HOME HEALTH ATTENDANT us Cristina Veras MD LAB BLOOD ORDERABLES Final Resul t [facility] ([place]) 1 [facility] Department [place] [address] * XR Chest PA Lateral 2 Views (08/28/2024 3:44 PM HOME HEALTH ATTENDANT) Anatomical Region Laterality Modality Body, Chest N/A Computed Radiogr aphy 08/30/2024 11:0 7 PM HOME HEALTH ATTENDANT Narrative 08/30/2024 11:08 PM HOME HEALTH ATTENDANT EXAM DESCRIPTION: XR CHEST PA LATERAL 2 VIEWS REASON FOR STUDY: Follow up from having COVID pneumonia end of July Smoker Hx of mass removed from right lung around 2008 Hx of COPD and HTN TECHNIQUE: 2 radiographic view(s) of the chest. COMPARISON: 08/11/2024 FINDINGS: LUNGS: No focal opacity, pleural effusion, or pneumothorax. Poor inspiratory result with bibasilar atelectasis. HEART/MEDIASTINUM: Cardiac silhouette normal in size. Mediastinal and hilar contours appear normal. LINES/TUBES: None. BONES: No acute osseous abnormality. IMPRESSION: No acute cardiopulmonary abnormality. THIS IS AN ELECTRONICALLY VERIFIED FINAL REPORT 08/30/2024 11:08 PM - Electronically signed by Jin Barrett M.D. KT: AMALIA Report ID: [id number] Reading Location: [id number] Procedure Note Jin Barrett MD - 08/30/2024 EXAM DESCRIPTION: XR CHEST PA LATERAL 2 VIEWS REASON FOR STUDY: Follow up from having COVID pneumonia end of July Smoker Hx of mass removed from right lung around 2008 Hx of COPD and HTN TECHNIQUE: 2 radiographic view(s) of the chest. COMPARISON: 08/11/2024 FINDINGS: LUNGS: No focal opacity, pleural effusion, or pneumothorax. Poor inspiratory result with bibasilar atelectasis. HEART/MEDIASTINUM: Cardiac silhouette normal in size. Mediastinal andhilar contours appear normal. LINES/TUBES: None. BONES: No acute osseous abnormality. IMPRESSION: No acute cardiopulmonary abnormality. THIS IS AN ELECTRONICALLY VERIFIED FINAL REPORT 08/30/2024 11:08 PM - Electronically signed by Jin Barrett M.D. KT: AMALIA Report ID: [id number] Reading Location: [id number] us Sue Snow MD IMG XR PROCEDURES Final Resul t * XR Chest 1 Vw Portable (08/11/2024 9:02 PM HOME HEALTH ATTENDANT) Anatomical Region Laterality Modality Body, Chest N/A Computed Radiogr aphy 08/11/2024 9:35 PM HOME HEALTH ATTENDANT Narrative 08/11/2024 9:37 PM HOME HEALTH ATTENDANT EXAM DESCRIPTION: XR CHEST 1 VIEW REASON FOR STUDY: Shortness of breath Pt ambulatory to triage with c/o SOB and coughing up blood. Pt has been on antibiotics since yesterday for pneumonia TECHNIQUE: AP radiographic view(s) of the chest. COMPARISON: Comparison 08/10/2024. FINDINGS: LUNGS: Minimal residual opacity adjacent to the lateral right hemidiaphragm. Lung de la torre otherwise are clear. Low lung volumes. No pleural effusion, or pneumothorax. HEART/MEDIASTINUM: Cardiac silhouette normal in size. Mediastinal and hilar contours appear normal. LINES/TUBES: None. BONES: No acute osseous abnormality. IMPRESSION: Minimal residual opacity adjacent to the lateral right hemidiaphragm. Lung de [place]re otherwise are clear. THIS IS AN ELECTRONICALLY VERIFIED FINAL REPORT 08/11/2024 9:37 PM - Electronically signed by Alisha Colmenares M.D. LC: JUNITO Report ID: [id number] Reading Location: [id number] Procedure Note Leslie Colmenares MD - 08/11/2024 EXAM DESCRIPTION: XR CHEST 1 VIEW REASON FOR STUDY: Shortness of breath Pt ambulatory to triage with c/o SOB and coughing up blood. Pt has been on antibiotics since yesterday for pneumonia TECHNIQUE: AP radiographic view(s) of the chest. COMPARISON: Comparison 08/10/2024. FINDINGS: LUNGS: Minimal residual opacity adjacent to the lateral righthemidiaphragm. Lung de [place] otherwise are clear. Low lung volumes. No pleural effusion,or pneumothorax. HEART/MEDIASTINUM: Cardiac silhouette normal in size. Mediastinal andhilar contours appear normal. LINES/TUBES: None. BONES: No acute osseous abnormality. IMPRESSION: Minimal residual opacity adjacent to the lateral right hemidiaphragm. Lung de [place]re otherwise are clear. THIS IS AN ELECTRONICALLY VERIFIED FINAL REPORT 08/11/2024 9:37 PM - Electronically signed by Alisha Colmenares M.D. LC: JUNITO Report ID: [id number] Reading Location: [place] [id number] Chad David MD IMG XR PROCEDURES Final Resu lt * eGFR (08/11/2024 8:34 PM HOME HEALTH ATTENDANT) eGFR >90 >=60 mL/min/1. 73 m2 Comment: Interpretive Data Reference Interval Normal >/= 90 mL/min/1.73m2 Mildly decreased* 60 - 89 mL/min/1.73m2 Mildly to moderately decreased 45 - 59 mL/min/1.73m2 Moderately to severely decreased 30 - 44 mL/min/1.73m2 Severely decreased 15 - 29 mL/min/1.73m2 Kidney Failure < 15 mL/min/1.73m2 *Relative to young adult level Estimated glomerular filtration rate is determined by the 2020 CKD-EPI equation recommended by the National Kidney Foundation (A Unifying Approach to GFR Estimation: Recommendations of the NKF-ASK Task Force on Reassessing the Inclusion of Race in Diagnosing Kidney Disease, JASN 2020). The CKD-EPI equation should not be used for patients with unstable renal function and has not been validated in children and those over 70. Current interpretive data was last reviewed 2021. Blood 08/11/2024 8:34 PM HOME HEALTH ATTENDANT 08/11/2024 8:51 PM HOME HEALTH ATTENDANT Chad David MD LAB BLOOD ORDERABLES Final R esult [facility] ([place]) 1 [facility] Department [place] [address] * Differential, auto (08/11/2024 8:34 PM HOME HEALTH ATTENDANT) Neutrophil abs 3.8 1.5 - 6.5 K/cumm Imm gran abs 0.0 0.0 - 0.1 K/cumm [facility] ([place]) Lymphocyte abs 2.0 0.8 - 3.3 K/cumm [facility]) Monocyte abs 0.5 0.2 - 0.8 K/cumm [facility]) Eosinophil abs 0.2 0.0 - 0.5 K/cumm [facility]) Basophil abs 0.0 0.0 - 0.1 K/cumm [facility]) Neutrophil pct 57.6 % [facility] ([place]) Comment: Interpretive Data Percent cell count reference ranges are not reported, since discordance with absolute values may lead to misinterpretation of CBC data. Current Interpretive Data was last revised on 2017. Imm gran pct 0.5 % [facility] ([place]) Comment: Interpretive Data Percent cell count reference ranges are not reported, since discordance with absolute values may lead to misinterpretation of CBC data. Current Interpretive Data was last revised on 2017. Lymphocyte pct 31.1 % [facility] ([place]) Comment: Interpretive Data Percent cell count reference ranges are not reported, since discordance with absolute values may lead to misinterpretation of CBC data. Current Interpretive Data was last revised on 2017. Monocyte pct 7.0 % [facility] ([place]) Comment: Interpretive Data Percent cell count reference ranges are not reported, since discordance with absolute values may lead to misinterpretation of CBC data. Current Interpretive Data was last revised on 2017. Eosinophil pct 3.5 % [facility] ([place]) Comment: Interpretive Data Percent cell count reference ranges are not reported, since discordance with absolute values may lead to misinterpretation of CBC data. Current Interpretive Data was last revised on 2017. Basophil pct 0.3 % [facility] ([place]) Comment: Interpretive Data Percent cell count reference ranges are not reported, since discordance with absolute values may lead to misinterpretation of CBC data. Current Interpretive Data was last revised on 2017. Blood 08/11/2024 8:34 PM HOME HEALTH ATTENDANT 08/11/2024 10:15 PM HOME HEALTH ATTENDANT us Cristina Veras MD LAB BLOOD ORDERABLES Final Resul t [facility] ([place]) 1 [facility] Department [place] [address] * Pro B-type natriuretic peptide (08/11/2024 8:34 PM HOME HEALTH ATTENDANT) NT-proBNP <36 <=300 pg/mL Comment: Interpretive Comments: A. Dyspnea in Acute Care Setting All Ages: < 300 pg/ml, acute heart failure unlikely. < 50 yrs: 300 - 450 pg/ml, further investigation warranted. > 450 pg/ml, acute heart failure likely. 50 - 74 yrs: 300 - 900 pg/ml, further investigation warranted. > 900 pg/ml, acute heart failure likely . > or = 75 yrs: 450 - 1800 pg/ml, further investigation warranted. > 1800 pg/ml, acute heart failure likely. B. Non-acute Setting < 75 yrs < 125 pg/ml, rules out heart failure. > or = 125 pg/ml, further investigation warranted. > or = 75 yrs < 450 pg/ml, rules out heart failure. > or = 450 pg/ml, further investigation warranted. - Knowledge of each individual patient's NT-proBNP range may be more useful than using similar cut-points for every patient. Please note that marked elevations in NT-proBNP levels may be observed in state other than Left Ventricular Congestive Failure, including: acute coronary syndromes, right heart strain/failure (including pulmonary embolism and cor pulmonale), critical illness, renal failure, as well as advanced age. - References: 1. Inge CORMIER et.al. Eur Heart J. 2006:27:330-337. 2. Callum RW, Michelle SANDERSON. J. AM Otto Cardiol: Cardiovasc Imag. 2009;2: 216- 225. Interpretive Data Last Revised Date: 2018. Blood 08/11/2024 8:34 PM HOME HEALTH ATTENDANT 08/11/2024 8:51 PM HOME HEALTH ATTENDANT Chad David MD LAB BLOOD ORDERABLES Final R esult [facility] ([place]) [facility] Department [place] [address] * (ABNORMAL) CBC with auto differential (08/11/2024 8:34 PM HOME HEALTH ATTENDANT) WBC 6.6 3.8 - 9.9 K/cumm Hgb 10.1(L) 11.9 - 15.5 g/dL [facility] ([place]) Hct 33.4(L) 35.6 - 45.5 % [facility]) Plt 472(H) 150 - 400 K/cumm [facility]) MPV 9.4 9.1 - 12.3 fL [facility]) RBC 4.39 3.90 - 5.20 M/cumm [facility]) MCV 76.1(L) 81.3 - 96.4 fL [facility]) MCH 23.0(L) 27.1 - 33.3 pg [facility]) MCHC 30.2(L) 32.3 - 35.7 g/dL [facility]) RDW CV 16.3(H) 11.1 - 14.9 % [facility]) RDW SD 44.3 35.7 - 48.1 fL [facility]) NRBC abs 0.00 0.00 - 0.01 K/cumm [facility]) Blood 08/11/2024 8:34 PM HOME HEALTH ATTENDANT 08/11/2024 10:15 PM HOME HEALTH ATTENDANT us Cristina Veras MD LAB BLOOD ORDERABLES Final Resul t [facility] ([place] 1 [facility] Department [place] [address] * Comprehensive metabolic panel (08/11/2024 8:34 PM HOME HEALTH ATTENDANT) Sodium 138 135 - 145 mmol/L Potassium, pl 4.0 3.3 - 4.9 mmol/L [facility]) Chloride 104 97 - 110 mmol/L [facility] CO2 23 22 - 32 mmol/L [facility]) Anion gap 12 2 - 15 mmol/L [facility]) BUN 19 6 - 25 mg/dL [facility]) Creatinine 0.68 0.60 - 1.10 mg/dL [facility]) Glucose 90 70 - 199 mg/dL [facility]) Comment: Interpretive Data Fasting glucose >/= 126 mg/dl is diagnostic for diabetes. Fasting is defined as no caloric intake for at least 8 hours. Fasting glucose between 100 mg/dl to 125 mg/dl is diagnostic of prediabetes. In a patient with classic symptoms of hyperglycemia or hyperglycemic crisis, a random glucose >/= 200 mg/dl is diagnostic for diabetes. In the absence of unequivocal hyperglycemia, results should be confirmed by repeat testing. The classification and Diagnosis of Diabetes Diabetes Care 202; 46: S19-S40. Current interpretive data was last revised 2022. Calcium 8.8 8.5 - 10.3 mg/dL [facility]) Bilirubin, total <0.2 0.1 - 1.2 mg/dL [facility] ([place]) Protein, pl 6.9 6.5 - 8.5 g/dL [facility]) Albumin 4.1 3.5 - 5.0 g/dL [facility]) Alk phos 124 40 - 130 Units/L [facility]) ALT 14 7 - 45 Units/L [facility] [place]) AST 13 10 - 45 Units/L [facility]) Blood 08/11/2024 8:34 PM HOME HEALTH ATTENDANT 08/11/2024 8:51 PM HOME HEALTH ATTENDANT Chad David MD LAB BLOOD ORDERABLES Final R esult Performing Organization Address City/[facility] Co de Phone Number [facility] ([place]) [facility] Department [place] [address] * ECG 12 lead (08/11/2024 7:57 PM HOME HEALTH ATTENDANT) 08/11/2024 7:57 PM HOME HEALTH ATTENDANT Narrative [facility] - 08/12/2024 6:59 AM HOME HEALTH ATTENDANT Vent Rate: 96 bpm RR Interval: 622 msec MN Interval: 183 msec QRS Duration: 86 msec QT Interval: 331 msec QTC Interval: 385 msec P-R-T Gonzales: 28 - 6 - 57 degrees IMPRESSION: SINUS RHYTHM NORMAL ECG NO CHANGE FROM PREVIOUS TRACING NOTED Electronically Signed By: Cruz Claudio MD Chad David MD ECG ORDERABLES Final Result Performing Organization Address [facility] de Phone Number [facility] * XR Chest 1 Vw Portable (08/10/2024 6:46 PM HOME HEALTH ATTENDANT) Anatomical Region Laterality Modality Body, Chest N/A Computed Radiogr aphy 08/10/2024 6:51 PM HOME HEALTH ATTENDANT Narrative 08/10/2024 6:52 PM HOME HEALTH ATTENDANT EXAM DESCRIPTION: XR CHEST 1 VIEW REASON FOR STUDY: cough Pt had 2 seizures today. Hx of COPD, current smoker TECHNIQUE: Single frontal radiographic view(s) of the chest. COMPARISON: 08/07/2024 FINDINGS: The heart size is upper limits of normal. The pulmonary vasculature and mediastinum are grossly stable. There is no definite evidence of a pneumothorax. There are mild patchy left perihilar and bibasilar airspace opacities. There is no definite evidence of pleural effusion. The osseous structures are acutely grossly stable. IMPRESSION: 1. Mild patchy left perihilar and bibasilar airspace opacities, which may be related to subsegmental atelectasis/scarring versus developing airspace disease. THIS IS AN ELECTRONICALLY VERIFIED FINAL REPORT 08/10/2024 6:52 PM - Electronically signed by Clover Weinberg D.O. PS: PS Report ID: [id number] Reading Location: [id number] Procedure Note Clover Weinberg, DO - 08/10/2024 EXAM DESCRIPTION: XR CHEST 1 VIEW REASON FOR STUDY: cough Pt had 2 seizures today. Hx of COPD, current smoker TECHNIQUE: Single frontal radiographic view(s) of the chest. COMPARISON: 08/07/2024 FINDINGS: The heart size is upper limits of normal. The pulmonary vasculature and mediastinum are grossly stable. There is no definite evidence of a pneumothorax. There are mild patchy left perihilar and bibasilar airspace opacities. There is no definite evidence of pleural effusion. The osseous structures are acutely grossly stable. IMPRESSION: 1. Mild patchy left perihilar and bibasilar airspace opacities, whichmay be related to subsegmental atelectasis/scarring versus developing airspace disease. THIS IS AN ELECTRONICALLY VERIFIED FINAL REPORT 08/10/2024 6:52 PM - Electronically signed by Clover Weinberg D.O. PS: PS Report ID: [id number] Reading Location: [place] [address] Elif Killian MD IMG XR PROCEDURES F inal Result * Urinalysis reflex to microscopic and culture Urine (08/10/2024 4:13 PM HOME HEALTH ATTENDANT) Color, ur Yellow Yellow Clarity, ur Clear Clear [facility] ([place]) Specific gravity, ur 1.009 1.003 - 1.030 [facility] ([place]) pH, urine 6.0 [facility] ([place]) Comment: Interpretive Data U rine pH is affected by diet, medications, systemic acid-base disturbances, and renal tubular function. pH may affect urinary stone formation. For example, urine pH below 6.0 may help reduce the tendency for calcium phosphate stones and pH greater than 6.0 may reduce the tendency for uric acid stone formation. Source: [facility] Current Interpretive Data was last revised on 2017 Protein, ur ql Negative Negative [facility] ([place]) Glucose, ur ql Negative Negative [facility]) Ketones, ur Negative Negative [facility] ([place]) Bilirubin, ur Negative Negative [facility]) Blood, ur Negative Negative [facility]) Urobilinogen, ur <2.0 <2.0 mg/dL [facility]) Nitrite, ur Negative Negative [facility] ([place]) Leukocyte esterase, ur Negative Negative [facility]) UA reflex comment Reflex conditions for microscopic UA and culture not met. [facility]) Urine 08/10/2024 4:13 PM HOME HEALTH ATTENDANT 08/10/2024 4:15 PM HOME HEALTH ATTENDANT Diane DOTSON LAB MICROBIOLOGY - GENERAL [facility] Final Result [facility] ([place]) [facility] Department [place] [address] * eGFR (08/10/2024 3:41 PM HOME HEALTH ATTENDANT) eGFR >90 >=60 mL/min/1. 73 m2 Comment: Interpretive Data Reference Interval Normal >/= 90 mL/min/1.73m2 Mildly decreased* 60 - 89 mL/min/1.73m2 Mildly to moderately decreased 45 - 59 mL/min/1.73m2 Moderately to severely decreased 30 - 44 mL/min/1.73m2 Severely decreased 15 - 29 mL/min/1.73m2 Kidney Failure < 15 mL/min/1.73m2 *Relative to young adult level Estimated glomerular filtration rate is determined by the 2020 CKD-EPI equation recommended by the National Kidney Foundation (A Unifying Approach to GFR Estimation: Recommendations of the NKF-ASK Task Force on Reassessing the Inclusion of Race in Diagnosing Kidney Disease, JASN 2020). The CKD-EPI equation should not be used for patients with unstable renal function and has not been validated in children and those over 70. Current interpretive data was last reviewed 2021. Blood 08/10/2024 3:41 PM HOME HEALTH ATTENDANT 08/10/2024 3:43 PM HOME HEALTH ATTENDANT us Diane DOTSON LAB BLOOD ORDERABLES Final Resu lt [facility] ([place]) [facility] Department [place] [address] * Differential, auto (08/10/2024 3:41 PM HOME HEALTH ATTENDANT) Neutrophil abs 4.4 1.5 - 6.5 K/cumm Imm gran abs 0.0 0.0 - 0.1 K/cumm [facility] ([place]) Lymphocyte abs 1.7 0.8 - 3.3 K/cumm [facility] ([place]) Monocyte abs 0.4 0.2 - 0.8 K/cumm [facility] ([place]) Eosinophil abs 0.2 0.0 - 0.5 K/cumm [facility] ([place]) Basophil abs 0.0 0.0 - 0.1 K/cumm [facility] ([place]) Neutrophil pct 64.5 % [facility] ([place]) Comment: Interpretive Data Percent cell count reference ranges are not reported, since discordance with absolute values may lead to misinterpretation of CBC data. Current Interpretive Data was last revised on 2017. Imm gran pct 0.4 % [facility] ([place]) Comment: Interpretive Data Percent cell count reference ranges are not reported, since discordance with absolute values may lead to misinterpretation of CBC data. Current Interpretive Data was last revised on 2017. Lymphocyte pct 25.4 % [facility] ([place]) Comment: Interpretive Data Percent cell count reference ranges are not reported, since discordance with absolute values may lead to misinterpretation of CBC data. Current Interpretive Data was last revised on 2017. Monocyte pct 6.3 % [facility] ([place]) Comment: Interpretive Data Percent cell count reference ranges are not reported, since discordance with absolute values may lead to misinterpretation of CBC data. Current Interpretive Data was last revised on 2017. Eosinophil pct 3.1 % [facility] ([place]) Comment: Interpretive Data Percent cell count reference ranges are not reported, since discordance with absolute values may lead to misinterpretation of CBC data. Current Interpretive Data was last revised on 2017. Basophil pct 0.3 % [facility] ([place]) Comment: Interpretive Data Percent cell count reference ranges are not reported, since discordance with absolute values may lead to misinterpretation of CBC data. Current Interpretive Data was last revised on 2017. Blood 08/10/2024 3:41 PM HOME HEALTH ATTENDANT 08/10/2024 3:43 PM HOME HEALTH ATTENDANT us Diane DOTSON LAB BLOOD ORDERABLES Final Resu lt [facility] ([place]) 1 [facility] Department [place] [address] * (ABNORMAL) CBC with auto differential (08/10/2024 3:41 PM HOME HEALTH ATTENDANT) WBC 6.8 3.8 - 9.9 K/cumm Hgb 9.6(L) 11.9 - 15.5 g/dL [facility] ([place]) Hct 31.6(L) 35.6 - 45.5 % [facility] ([place]) Plt 412(H) 150 - 400 K/cumm [facility] ([place]) MPV 8.7(L) 9.1 - 12.3 fL [facility] ([place]) RBC 4.23 3.90 - 5.20 M/cumm [facility] ([place]) MCV 74.7(L) 81.3 - 96.4 fL [facility] ([place]) MCH 22.7(L) 27.1 - 33.3 pg [facility] ([place]) MCHC 30.4(L) 32.3 - 35.7 g/dL [facility] ([place]) RDW CV 16.2(H) 11.1 - 14.9 % [facility] ([place]) RDW SD 43.6 35.7 - 48.1 fL [facility] ([place]) NRBC abs 0.00 0.00 - 0.01 K/cumm [facility] ([place]) Blood 08/10/2024 3:41 PM HOME HEALTH ATTENDANT 08/10/2024 3:43 PM HOME HEALTH ATTENDANT Diane DOTSON LAB BLOOD ORDERABLES Final Resu lt Performing Organization Address City/[facility]/ZIP Co de Phone Number N[facility] ([place]) 1 [facility] [place] [address] * Carbamazepine level, total (08/10/2024 3:41 PM HOME HEALTH ATTENDANT) Carbamazepine 4.6 4.0 - 12.0 mcg/mL Comment: Interpretive Data Therapeutic or Toxic effect of anticonvulsant drugs may occur at different concentrations in different patients and the correlation between dose and clinical effect must be evaluated individually. Current interpretive data was last revised on 13. Testing performed by: [facility], [address] [place]., [address] Blood 08/10/2024 3:41 PM HOME HEALTH ATTENDANT 08/11/2024 9:52 AM HOME HEALTH ATTENDANT Diane DOTSON LAB BLOOD ORDERABLES Final Resu lt Performing Organization Address City/[facility]/ZIP Co de Phone Number [facility] ([place]) 1 [facility] [place] [address] * (ABNORMAL) Comprehensive metabolic panel (08/10/2024 3:41 PM HOME HEALTH ATTENDANT) Sodium 138 135 - 145 mmol/L Potassium, pl 4.3 3.3 - 4.9 mmol/L [facility] Chloride 106 97 - 110 mmol/L [facility] CO2 22 22 - 32 mmol/L [facility] Anion gap 10 2 - 15 mmol/L [facility] BUN 12 6 - 25 mg/dL [facility] ([place]) Creatinine 0.57(L) 0.60 - 1.10 mg/dL [facility] Glucose 94 70 - 199 mg/dL [facility] ([place] Comment: Interpretive Data Fasting glucose >/= 126 mg/dl is diagnostic for diabetes. Fasting is defined as no caloric intake for at least 8 hours. Fasting glucose between 100 mg/dl to 125 mg/dl is diagnostic of prediabetes. In a patient with classic symptoms of hyperglycemia or hyperglycemic crisis, a random glucose >/= 200 mg/dl is diagnostic for diabetes. In the absence of unequivocal hyperglycemia, results should be confirmed by repeat testing. The classification and Diagnosis of Diabetes Diabetes Care 202; 46: S19-S40. Current interpretive data was last revised 2022. Calcium 9.3 8.5 - 10.3 mg/dL [facility] ([place]) Bilirubin, total <0.2 0.1 - 1.2 mg/dL [facility] ([place]) Protein, pl 6.6 6.5 - 8.5 g/dL [facility] ([place]) Albumin 4.0 3.5 - 5.0 g/dL [facility] ([place]) Alk phos 113 40 - 130 Units/L [facility] ([place]) ALT 11 7 - 45 Units/L [facility] ([place]) AST 12 10 - 45 Units/L [facility] ([place]) Blood 08/10/2024 3:41 PM HOME HEALTH ATTENDANT 08/10/2024 3:43 PM HOME HEALTH ATTENDANT Diane DOTSON LAB BLOOD ORDERABLES Final Resu lt Performing Organization Address City/[facility]/ZIP Co de Phone Number [facility] ([place]) 1 [facility] [employer] [place] [address] * Sepsis Lactate w/ Reflex (08/10/2024 2:54 PM HOME HEALTH ATTENDANT) Sepsis Lactate 1.1 0.7 - 2.0 mmol/L Blood 08/10/2024 2:54 PM HOME HEALTH ATTENDANT 08/10/2024 2:58 PM HOME HEALTH ATTENDANT Diane DOTSON LAB BLOOD ORDERABLES Final Resu lt [facility] ([place]) 1 [facility] [employer] [place] [address] * ECG 12 lead (08/08/2024 4:28 PM HOME HEALTH ATTENDANT) 08/08/2024 4:28 PM HOME HEALTH ATTENDANT Narrative [facility] - 08/09/2024 7:40 AM HOME HEALTH ATTENDANT Vent Rate: 91 bpm RR Interval: 653 msec MN Interval: 157 msec QRS Duration: 89 msec QT Interval: 330 msec QTC Interval: 379 msec P-R-T Gonzales: 63 - 21 - 48 degrees IMPRESSION: SINUS RHYTHM NORMAL ECG Electronically Signed By: Brennen Birmingham MD, [facility] us Maryann DOTSON ECG ORDERABLES Final Result [facility] * Troponin T high-sensitivity series (baseline, 2hr, 4hr, 6hr) (08/08/2024 3:26 AM HOME HEALTH ATTENDANT) Pathologist [facility] [place] Trop T hs <6 <=14 ng/L Comment: Interpretive Data For further hscTnT resources including the diagnostic algorithm and an aid in interpretation, copy and paste this link: https://nrl.testcatalog.org/show/hsTrop Current Interpretive Data last revised 2020. Blood 08/08/2024 3:26 AM HOME HEALTH ATTENDANT 08/08/2024 3:30 AM HOME HEALTH ATTENDANT us Cristóbal Hurd MD LAB BLOOD ORDERABLES Final Result [facility] ([place]) 1 [facility] Department [place] [address] * eGFR (08/08/2024 3:26 AM HOME HEALTH ATTENDANT) eGFR >90 >=60 mL/min/1. 73 m2 Comment: Interpretive Data Reference Interval Normal >/= 90 mL/min/1.73m2 Mildly decreased* 60 - 89 mL/min/1.73m2 Mildly to moderately decreased 45 - 59 mL/min/1.73m2 Moderately to severely decreased 30 - 44 mL/min/1.73m2 Severely decreased 15 - 29 mL/min/1.73m2 Kidney Failure < 15 mL/min/1.73m2 *Relative to young adult level Estimated glomerular filtration rate is determined by the 2020 CKD-EPI equation recommended by the National Kidney Foundation (A Unifying Approach to GFR Estimation: Recommendations of the NKF-ASK Task Force on Reassessing the Inclusion of Race in Diagnosing Kidney Disease, JASN 2020). The CKD-EPI equation should not be used for patients with unstable renal function and has not been validated in children and those over 70. Current interpretive data was last reviewed 2021. Blood 08/08/2024 3:26 AM HOME HEALTH ATTENDANT 08/08/2024 3:30 AM HOME HEALTH ATTENDANT us Cristóbal Hurd MD LAB BLOOD ORDERABLES Final Result [facility] 1 [facility] Department [place] [address] * Differential, auto (08/08/2024 3:26 AM HOME HEALTH ATTENDANT) Neutrophil abs 3.7 1.5 - 6.5 K/cumm Imm gran abs 0.0 0.0 - 0.1 K/cumm [facility] ([place]) Lymphocyte abs 2.2 0.8 - 3.3 K/cumm [facility] ([place]) Monocyte abs 0.4 0.2 - 0.8 K/cumm [facility] ([place]) Eosinophil abs 0.2 0.0 - 0.5 K/cumm [facility] ([place]) Basophil abs 0.0 0.0 - 0.1 K/cumm [facility] ([place]) Neutrophil pct 56.9 % [facility] ([place]) Comment: Interpretive Data Percent cell count reference ranges are not reported, since discordance with absolute values may lead to misinterpretation of CBC data. Current Interpretive Data was last revised on 2017. Imm gran pct 0.3 % [facility] ([place]) Comment: Interpretive Data Percent cell count reference ranges are not reported, since discordance with absolute values may lead to misinterpretation of CBC data. Current Interpretive Data was last revised on 2017. Lymphocyte pct 33.2 % [facility] ([place]) Comment: Interpretive Data Percent cell count reference ranges are not reported, since discordance with absolute values may lead to misinterpretation of CBC data. Current Interpretive Data was last revised on 2017. Monocyte pct 6.2 % [facility] ([place]) Comment: Interpretive Data Percent cell count reference ranges are not reported, since discordance with absolute values may lead to misinterpretation of CBC data. Current Interpretive Data was last revised on 2017. Eosinophil pct 3.1 % [facility] ([place]) Comment: Interpretive Data Percent cell count reference ranges are not reported, since discordance with absolute values may lead to misinterpretation of CBC data. Current Interpretive Data was last revised on 2017. Basophil pct 0.3 % [facility] ([place]) Comment: Interpretive Data Percent cell count reference ranges are not reported, since discordance with absolute values may lead to misinterpretation of CBC data. Current Interpretive Data was last revised on 2017. Blood 08/08/2024 3:26 AM HOME HEALTH ATTENDANT 08/08/2024 3:30 AM HOME HEALTH ATTENDANT us Cristóbal Hurd MD LAB BLOOD ORDERABLES Final Result [facility] ([place]) 1 [facility] Department [place] [address] * (ABNORMAL) CBC with auto differential (08/08/2024 3:26 AM HOME HEALTH ATTENDANT) WBC 6.5 3.8 - 9.9 K/cumm Hgb 9.6(L) 11.9 - 15.5 g/dL [facility] ([place]) Hct 31.8(L) 35.6 - 45.5 % [facility] ([place]) Plt 443(H) 150 - 400 K/cumm [facility] ([place]) MPV 9.4 9.1 - 12.3 fL [facility] ([place]) RBC 4.23 3.90 - 5.20 M/cumm [facility] ([place]) MCV 75.2(L) 81.3 - 96.4 fL [facility] ([place]) MCH 22.7(L) 27.1 - 33.3 pg [facility] ([place]) MCHC 30.2(L) 32.3 - 35.7 g/dL [facility] ([place]) RDW CV 16.1(H) 11.1 - 14.9 % [facility] ([place]) RDW SD 43.8 35.7 - 48.1 fL [facility] ([place]) NRBC abs 0.00 0.00 - 0.01 K/cumm [facility] ([place]) Blood 08/08/2024 3:26 AM HOME HEALTH ATTENDANT 08/08/2024 3:30 AM HOME HEALTH ATTENDANT Cristóbal Hurd MD LAB BLOOD ORDERABLES Final Result [facility] ([place]) 1 [facility] Department [place] [address] * Comprehensive metabolic panel (08/08/2024 3:26 AM HOME HEALTH ATTENDANT) Sodium 135 135 - 145 mmol/L Potassium, pl 4.2 3.3 - 4.9 mmol/L [facility] ([place]) Chloride 102 97 - 110 mmol/L [facility] ([place]) CO2 23 22 - 32 mmol/L [facility] ([place]) Anion gap 10 2 - 15 mmol/L [facility] ([place]) BUN 13 6 - 25 mg/dL [facility] Creatinine 0.64 0.60 - 1.10 mg/dL [facility] ([place]) Glucose 96 70 - 199 mg/dL [facility] ([place]) Comment: Interpretive Data Fasting glucose >/= 126 mg/dl is diagnostic for diabetes. Fasting is defined as no caloric intake for at least 8 hours. Fasting glucose between 100 mg/dl to 125 mg/dl is diagnostic of prediabetes. In a patient with classic symptoms of hyperglycemia or hyperglycemic crisis, a random glucose >/= 200 mg/dl is diagnostic for diabetes. In the absence of unequivocal hyperglycemia, results should be confirmed by repeat testing. The classification and Diagnosis of Diabetes Diabetes Care 2021; 46: S19-S40. Current interpretive data was last revised 2022. Calcium 8.9 8.5 - 10.3 mg/dL [facility] ([place]) Bilirubin, total <0.2 0.1 - 1.2 mg/dL [facility] ([place]) Protein, pl 6.5 6.5 - 8.5 g/dL [facility] ([place]) Albumin 4.2 3.5 - 5.0 g/dL [facility] ([place]) Alk phos 114 40 - 130 Units/L [facility] ([place]) ALT 12 7 - 45 Units/L [facility] ([place]) AST 13 10 - 45 Units/L [facility] ([place]) Blood 08/08/2024 3:26 AM HOME HEALTH ATTENDANT 08/08/2024 3:30 AM HOME HEALTH ATTENDANT us Cristóbal Hurd MD LAB BLOOD ORDERABLES Final Result [facility] 1 [facility] Department [place] [address] * XR Chest PA Lateral 2 Views (08/07/2024 11:43 PM HOME HEALTH ATTENDANT) Anatomical Region Laterality Modality Body, Chest N/A Computed Radiogr aphy 08/07/2024 11:4 7 PM HOME HEALTH ATTENDANT Narrative 08/07/2024 11:48 PM HOME HEALTH ATTENDANT EXAM DESCRIPTION: XR CHEST PA LATERAL 2 VIEWS REASON FOR STUDY: cough C/o Cough, Difficulty Breathing and All over Chest Pain Tonight. Dx with COVID 4 Days ago, and states not feeling better. Pt also said she read my chart and EKG read abnormal. Pt presents Afebrile. Smoker Asthma COPD Diabetic DVT Hx of Uterine Cancer Seizure Disorder TECHNIQUE: Frontal and lateral radiographic view(s) of the chest. COMPARISON: 07/02/2024 FINDINGS: LUNGS: There are subtle opacities in the right lung base. No sizable pleural effusion or pneumothorax. HEART/MEDIASTINUM: Cardiac silhouette normal in size. Mediastinal and hilar contours appear normal. LINES/TUBES: None. BONES: No acute osseous abnormality. IMPRESSION: Subtle opacities in the right lung base, which may represent atelectasis or pneumonia. THIS IS AN ELECTRONICALLY VERIFIED FINAL REPORT 08/07/2024 11:48 PM - Electronically signed by Ja Martínez M.D. AM: AM Report ID: [id number] Reading Location: [id number] Procedure Note Ja Martínez MD - 08/07/2024 EXAM DESCRIPTION: XR CHEST PA LATERAL 2 VIEWS REASON FOR STUDY: cough C/o Cough, Difficulty Breathing and All over Chest Pain Tonight. Dx with COVID 4 Days ago, and states not feeling better. Pt also said she read my chart and EKG read abnormal. Pt presents Afebrile. Smoker AsthmaCOPD Diabetic DVT Hx of Uterine Cancer Seizure Disorder TECHNIQUE: Frontal and lateral radiographic view(s) of the chest. COMPARISON: 07/02/2024 FINDINGS: LUNGS: There are subtle opacities in the right lung base. No sizablepleural effusion or pneumothorax. HEART/MEDIASTINUM: Cardiac silhouette normal in size. Mediastinal andhilar contours appear normal. LINES/TUBES: None. BONES: No acute osseous abnormality. IMPRESSION: Subtle opacities in the right lung base, which may represent atelectasisor pneumonia. THIS IS AN ELECTRONICALLY VERIFIED FINAL REPORT 08/07/2024 11:48 PM - Electronically signed by Ja Martínez M.D. AM: AM Report ID: [id number] Reading Location: [id number] us Cristóbal Hurd MD IMG XR PROCEDURES Final Res ult * ECG 12 lead (08/07/2024 10:54 PM HOME HEALTH ATTENDANT) 08/07/2024 10:5 4 PM HOME HEALTH ATTENDANT Narrative [facility] - 08/08/2024 2:32 PM HOME HEALTH ATTENDANT Vent Rate: 122 bpm RR Interval: 490 msec MN Interval: 163 msec QRS Duration: 84 msec QT Interval: 291 msec QTC Interval: 363 msec P-R-T Gonzales: 69 - 32 - 47 degrees IMPRESSION: SINUS TACHYCARDIA POSSIBLE ANTERIOR MYOCARDIAL INFARCTION , PROBABLY OLD [30 ms Q WAVE IN V3/V4, OR R < 0.2 mV IN V4] ABNORMAL RHYTHM ECG NO CHANGE FROM PREVIOUS TRACING NOTED Electronically Signed By: Cruz Claudio MD us Cristóbal Hurd MD ECG ORDERABLES Final Resul t [employer] [facility] * CT Chest PE (CTA) W Contrast (08/03/2024 9:31 PM HOME HEALTH ATTENDANT) Anatomical Region Laterality Modality Body N/A Computed Tomogra phy 08/03/2024 9:54 PM HOME HEALTH ATTENDANT Narrative 08/03/2024 9:57 PM HOME HEALTH ATTENDANT EXAM DESCRIPTION: CT CHEST PE (CTA) W CONTRAST REASON FOR STUDY: Chest pain, PE suspected, high prob Shortness of breath x 1 day. Pt is Covid positive. Hx of right lung lobectomy, HTN, COPD, diabetes Current smoker TECHNIQUE: CT angiogram of the chest performed with intravenous contrast using helical scanning technique with dynamic intravenous contrast injection. Reconstructed coronal and sagittal MPR images reviewed. All images stored on PACS. 3D MIP images rendered on scanning unit and reviewed at time of interpretation. Automated exposure control was used as a dose optimization technique for this examination. CONTRAST TYPE/DOSE: 100mL of IOVERSOL 350 MG IODINE/ML INTRAVENOUS SYRINGE injected via intravenous COMPARISON: 12/21/2023 FINDINGS: VASCULATURE: Bolus timing is adequate and no filling defect is seen in the pulmonary arterial tree. Systemic arterial structures are partially opacified and reveal no acute abnormality. MEDIASTINUM/BEATRIZ: Heart size normal. No coronary artery calcification. No enlarged lymph node. Thoracic inlet unremarkable. LUNGS: No acute process is seen. Very faint diffuse haziness similar to priors. Trachea and major airways patent. UPPER ABDOMEN: Gastric bypass. MUSCULOSKELETAL: Mild disc disease. CHEST WALL: Unremarkable. IMPRESSION: No PE or other acute abnormality identified. THIS IS AN ELECTRONICALLY VERIFIED FINAL REPORT 08/03/2024 9:57 PM - Electronically signed by Santi Castrejon M.D. AR: CYN Report ID: [id number] Reading Location: [id number] Procedure Note Santi Castrejon MD - 08/03/2024 EXAM DESCRIPTION: CT CHEST PE (CTA) W CONTRAST REASON FOR STUDY: Chest pain, PE suspected, high prob Shortness of breath x 1 day. Pt is Covid positive. Hx of right lung lobectomy, HTN, COPD, diabetes Current smoker TECHNIQUE: CT angiogram of the chest performed with intravenous contrastusing helical scanning technique with dynamic intravenous contrast injection. Reconstructed coronal and sagittal MPR images reviewed. All images storedon PACS. 3D MIP images rendered on scanning unit and reviewed at time of interpretation. Automated exposure control was used as a doseoptimization technique for this examination. CONTRAST TYPE/DOSE: 100mL of IOVERSOL 350 MG IODINE/ML INTRAVENOUSSYRINGE injected via intravenous COMPARISON: 12/21/2023 FINDINGS: VASCULATURE: Bolus timing is adequate and no filling defect is seen inthe pulmonary arterial tree. Systemic arterial structures are partially opacified and reveal no acute abnormality. MEDIASTINUM/BEATRIZ: Heart size normal. No coronary artery calcification.No enlarged lymph node. Thoracic inlet unremarkable. LUNGS: No acute process is seen. Very faint diffuse haziness similar to priors. Trachea and major airways patent. UPPER ABDOMEN: Gastric bypass. MUSCULOSKELETAL: Mild disc disease. CHEST WALL: Unremarkable. IMPRESSION: No PE or other acute abnormality identified. THIS IS AN ELECTRONICALLY VERIFIED FINAL REPORT 08/03/2024 9:57 PM - Electronically signed by Santi Castrejon M.D. AR: CYN Report ID: [id number] Reading Location: [id number] Tiffanie Ortega NP IMG CT PROCEDURES Fi nal Result * (ABNORMAL) Influenza A/B, RSV, and COVID-19 PCR Nasopharyngeal (08/03/2024 6:58 PM HOME HEALTH ATTENDANT) COVID-19 RNA Positive(A) Negative Influenza A RNA Negative Negative [facility] ([place]) Influenza B RNA Negative Negative [facility] ([place]) RSV RNA Negative Negative [facility] ([place]) Comment: Interpretive data: Testing performed by [facility]. This test is performed using the Cepheid Xpert Xpress CoV-2/Flu/RSV plus assay. This is a multiplex, real- time reverse transcriptase PCR assay intended for the qualitative detection of nucleic acid from SARS-CoV-2, influenza A, influenza B, and respiratory syncytial virus. This assay has been cleared by the [place] Food and Drug administration. The performance characteristics have been verified by the [facility]. Results must be considered in the clinical context, and a negative result does not rule out infection. Interpretive Data last revised 2023 Nasopharyngeal 08/03/2024 6: 58 PM HOME HEALTH ATTENDANT 08/03/2024 7:02 PM HOME HEALTH ATTENDANT Narrative [facility] ([place] - 08/03/2024 7:44 PM HOME HEALTH ATTENDANT Is the Patient experiencing symptoms consistent with COVID?->Yes Elif Killian MD LAB MICROBIOLOGY - GENERAL ORDERABLES Final Result Performing Organization Address City/[facility]/ZIP Co de Phone Number [facility] ([place]) [address] [place] [address] [place] [address] * Troponin T high-sensitivity series (baseline, 2hr, 4hr, 6hr) (08/03/2024 6:57 PM HOME HEALTH ATTENDANT) [facility] Trop T hs <6 <=14 ng/L Comment: Interpretive Data For further hscTnT resources including the diagnostic algorithm and an aid in interpretation, copy and paste this link: https://nrl.testcatalog.org/show/hsTrop Current Interpretive Data last revised 2020. Blood 08/03/2024 6:57 PM HOME HEALTH ATTENDANT 08/03/2024 7:02 PM HOME HEALTH ATTENDANT Elif Killian MD LAB BLOOD ORDERABLE S Final Result Performing Organization Address City/[facility]/ZIP Co de Phone Number [facility] ([place]) [address] [place] [address] [place] [address] * eGFR (08/03/2024 6:57 PM HOME HEALTH ATTENDANT) [facility] eGFR >90 >=60 mL/min/1. 73 m2 Comment: Interpretive Data Reference Interval Normal >/= 90 mL/min/1.73m2 Mildly decreased* 60 - 89 mL/min/1.73m2 Mildly to moderately decreased 45 - 59 mL/min/1.73m2 Moderately to severely decreased 30 - 44 mL/min/1.73m2 Severely decreased 15 - 29 mL/min/1.73m2 Kidney Failure < 15 mL/min/1.73m2 *Relative to young adult level Estimated glomerular filtration rate is determined by the 2020 CKD-EPI equation recommended by the National Kidney Foundation (A Unifying Approach to GFR Estimation: Recommendations of the NKF-ASK Task Force on Reassessing the Inclusion of Race in Diagnosing Kidney Disease, JASN 2020). The CKD-EPI equation should not be used for patients with unstable renal function and has not been validated in children and those over 70. Current interpretive data was last reviewed 2021. Blood 08/03/2024 6:57 PM HOME HEALTH ATTENDANT 08/03/2024 7:02 PM HOME HEALTH ATTENDANT us Elif Killian MD LAB BLOOD ORDERABLE S Final Result [facility] ([place]) 1 [facility] Department [place] [address] * Differential, auto (08/03/2024 6:57 PM HOME HEALTH ATTENDANT) Neutrophil abs 2.3 1.5 - 6.5 K/cumm Imm gran abs 0.0 0.0 - 0.1 K/cumm [facility] ([place]) Lymphocyte abs 1.6 0.8 - 3.3 K/cumm [facility] ([place]) Monocyte abs 0.3 0.2 - 0.8 K/cumm [facility] ([place]) Eosinophil abs 0.2 0.0 - 0.5 K/cumm [facility] ([place]) Basophil abs 0.0 0.0 - 0.1 K/cumm [facility] ([place]) Neutrophil pct 52.2 % [facility] ([place]) Comment: Interpretive Data Percent cell count reference ranges are not reported, since discordance with absolute values may lead to misinterpretation of CBC data. Current Interpretive Data was last revised on 2017. Imm gran pct 0.2 % [facility] ([place]) Comment: Interpretive Data Percent cell count reference ranges are not reported, since discordance with absolute values may lead to misinterpretation of CBC data. Current Interpretive Data was last revised on 2017. Lymphocyte pct 36.2 % [facility] ([place]) Comment: Interpretive Data Percent cell count reference ranges are not reported, since discordance with absolute values may lead to misinterpretation of CBC data. Current Interpretive Data was last revised on 2017. Monocyte pct 6.3 % [facility] ([place]) Comment: Interpretive Data Percent cell count reference ranges are not reported, since discordance with absolute values may lead to misinterpretation of CBC data. Current Interpretive Data was last revised on 2017. Eosinophil pct 4.7 % [facility] ([place]) Comment: Interpretive Data Percent cell count reference ranges are not reported, since discordance with absolute values may lead to misinterpretation of CBC data. Current Interpretive Data was last revised on 2017. Basophil pct 0.4 % [facility] ([place]) Comment: Interpretive Data Percent cell count reference ranges are not reported, since discordance with absolute values may lead to misinterpretation of CBC data. Current Interpretive Data was last revised on 2017. Blood 08/03/2024 6:57 PM HOME HEALTH ATTENDANT 08/03/2024 7:02 PM HOME HEALTH ATTENDANT us Elif Killian MD LAB BLOOD ORDERABLE S Final Result [facility] ([place]) 1 [facility] Department [place] [address] * (ABNORMAL) CBC with auto differential (08/03/2024 6:57 PM HOME HEALTH ATTENDANT) WBC 4.5 3.8 - 9.9 K/cumm Hgb 9.9(L) 11.9 - 15.5 g/dL [facility] ([place]) Hct 32.3(L) 35.6 - 45.5 % [facility] ([place]) Plt 372 150 - 400 K/cumm [facility] ([place]) MPV 9.5 9.1 - 12.3 fL [facility] ([place]) RBC 4.26 3.90 - 5.20 M/cumm [facility] ([place]) MCV 75.8(L) 81.3 - 96.4 fL [facility] ([place]) MCH 23.2(L) 27.1 - 33.3 pg [facility] ([place]) MCHC 30.7(L) 32.3 - 35.7 g/dL [facility] ([place]) RDW CV 16.1(H) 11.1 - 14.9 % [facility] ([place]) RDW SD 44.3 35.7 - 48.1 fL [facility] ([place]) NRBC abs 0.00 0.00 - 0.01 K/cumm [facility] ([place]) Blood 08/03/2024 6:57 PM HOME HEALTH ATTENDANT 08/03/2024 7:02 PM HOME HEALTH ATTENDANT us Elif Killian MD LAB BLOOD ORDERABLE S Final Result [facility] ([place]) 1 [facility] Department [place] [address] * (ABNORMAL) Comprehensive metabolic panel (08/03/2024 6:57 PM HOME HEALTH ATTENDANT) Sodium 137 135 - 145 mmol/L Potassium, pl 4.1 3.3 - 4.9 mmol/L [facility] Chloride 105 97 - 110 mmol/L [facility] ([place]) CO2 19(L) 22 - 32 mmol/L [facility] ([place]) Anion gap 13 2 - 15 mmol/L [facility] BUN 14 6 - 25 mg/dL [facility] ([place] Creatinine 0.67 0.60 - 1.10 mg/dL [facility] ([place]) Glucose 92 70 - 199 mg/dL [facility] ([place] Comment: Interpretive Data Fasting glucose >/= 126 mg/dl is diagnostic for diabetes. Fasting is defined as no caloric intake for at least 8 hours. Fasting glucose between 100 mg/dl to 125 mg/dl is diagnostic of prediabetes. In a patient with classic symptoms of hyperglycemia or hyperglycemic crisis, a random glucose >/= 200 mg/dl is diagnostic for diabetes. In the absence of unequivocal hyperglycemia, results should be confirmed by repeat testing. The classification and Diagnosis of Diabetes Diabetes Care 2021; 46: S19-S40. Current interpretive data was last revised 2022. Calcium 8.7 8.5 - 10.3 mg/dL [facility] ([place]) Bilirubin, total <0.2 0.1 - 1.2 mg/dL [facility] ([place]) Protein, pl 6.2(L) 6.5 - 8.5 g/dL [facility] ([place]) Albumin 3.8 3.5 - 5.0 g/dL [facility] ([place]) Alk phos 118 40 - 130 Units/L [facility] ([place]) ALT 17 7 - 45 Units/L [facility] ([place]) AST 18 10 - 45 Units/L [facility] ([place]) Blood 08/03/2024 6:57 PM HOME HEALTH ATTENDANT 08/03/2024 7:02 PM HOME HEALTH ATTENDANT Elif Killian MD LAB BLOOD ORDERABLE S Final Result [facility] ([place]) 1 [facility] Department [place] [address] * ECG 12 lead (08/03/2024 6:50 PM HOME HEALTH ATTENDANT) 08/03/2024 6:50 PM HOME HEALTH ATTENDANT Narrative [facility] - 08/04/2024 7:51 AM HOME HEALTH ATTENDANT Vent Rate: 104 bpm RR Interval: 574 msec MN Interval: 161 msec QRS Duration: 89 msec QT Interval: 314 msec QTC Interval: 374 msec P-R-T Gonzales: 54 - 55 - 50 degrees IMPRESSION: SINUS TACHYCARDIA LOW QRS VOLTAGE IN PRECORDIAL LEADS [QRS DEFLECTION < 1.0 mV IN CHEST LEADS] ABNORMAL RHYTHM ECG NO CHANGE FROM PREVIOUS TRACING NOTED Electronically Signed By: Cruz Claudio MD Elif Killian MD ECG ORDERABLES Fin al Result [facility] * eGFR (07/26/2024 7:01 PM HOME HEALTH ATTENDANT) eGFR >90 >=60 mL/min/1. 73 m2 Comment: Interpretive Data Reference Interval Normal >/= 90 mL/min/1.73m2 Mildly decreased* 60 - 89 mL/min/1.73m2 Mildly to moderately decreased 45 - 59 mL/min/1.73m2 Moderately to severely decreased 30 - 44 mL/min/1.73m2 Severely decreased 15 - 29 mL/min/1.73m2 Kidney Failure < 15 mL/min/1.73m2 *Relative to young adult level Estimated glomerular filtration rate is determined by the 2020 CKD-EPI equation recommended by the National Kidney Foundation (A Unifying Approach to GFR Estimation: Recommendations of the NKF-ASK Task Force on Reassessing the Inclusion of Race in Diagnosing Kidney Disease, JASN 2020). The CKD-EPI equation should not be used for patients with unstable renal function and has not been validated in children and those over 70. Current interpretive data was last reviewed 2021. Blood 07/26/2024 7:01 PM HOME HEALTH ATTENDANT 07/26/2024 7:13 PM HOME HEALTH ATTENDANT us Joseph Ford MD LAB BLOOD ORDERABLES Final Res ult [facility] ([place]) 1 [facility] Department [place] [address] * Differential, auto (07/26/2024 7:01 PM HOME HEALTH ATTENDANT) Neutrophil abs 3.5 1.5 - 6.5 K/cumm Imm gran abs 0.0 0.0 - 0.1 K/cumm [facility] ([place]) Lymphocyte abs 1.7 0.8 - 3.3 K/cumm [facility] ([place]) Monocyte abs 0.4 0.2 - 0.8 K/cumm [facility] ([place]) Eosinophil abs 0.2 0.0 - 0.5 K/cumm [facility] ([place]) Basophil abs 0.1 0.0 - 0.1 K/cumm [facility] ([place]) Neutrophil pct 59.8 % [facility] ([place]) Comment: Interpretive Data Percent cell count reference ranges are not reported, since discordance with absolute values may lead to misinterpretation of CBC data. Current Interpretive Data was last revised on 2017. Imm gran pct 0.5 % [facility] ([place]) Comment: Interpretive Data Percent cell count reference ranges are not reported, since discordance with absolute values may lead to misinterpretation of CBC data. Current Interpretive Data was last revised on 2017. Lymphocyte pct 29.4 % [facility] ([place]) Comment: Interpretive Data Percent cell count reference ranges are not reported, since discordance with absolute values may lead to misinterpretation of CBC data. Current Interpretive Data was last revised on 2017. Monocyte pct 6.5 % [facility] ([place]) Comment: Interpretive Data Percent cell count reference ranges are not reported, since discordance with absolute values may lead to misinterpretation of CBC data. Current Interpretive Data was last revised on 2017. Eosinophil pct 2.9 % [facility] ([place]) Comment: Interpretive Data Percent cell count reference ranges are not reported, since discordance with absolute values may lead to misinterpretation of CBC data. Current Interpretive Data was last revised on 2017. Basophil pct 0.9 % [facility] ([place]) Comment: Interpretive Data Percent cell count reference ranges are not reported, since discordance with absolute values may lead to misinterpretation of CBC data. Current Interpretive Data was last revised on 2017. Blood 07/26/2024 7:01 PM HOME HEALTH ATTENDANT 07/26/2024 7:13 PM HOME HEALTH ATTENDANT us Joseph Ford MD LAB BLOOD ORDERABLES Final Res ult [facility] ([place]) 1 [facility] Department [place] [address] * (ABNORMAL) CBC with auto differential (07/26/2024 7:01 PM HOME HEALTH ATTENDANT) Pathologist [facility] [place] WBC 5.9 3.8 - 9.9 K/cumm Hgb 9.7(L) 11.9 - 15.5 g/dL [facility] ([place]) Hct 32.7(L) 35.6 - 45.5 % [facility] ([place]) Plt 437(H) 150 - 400 K/cumm [facility] ([place]) MPV 9.3 9.1 - 12.3 fL [facility] ([place]) RBC 4.25 3.90 - 5.20 M/cumm [facility] ([place]) MCV 76.9(L) 81.3 - 96.4 fL [facility] ([place]) MCH 22.8(L) 27.1 - 33.3 pg [facility] ([place]) MCHC 29.7(L) 32.3 - 35.7 g/dL [facility] ([place]) RDW CV 15.9(H) 11.1 - 14.9 % [facility] ([place]) RDW SD 44.5 35.7 - 48.1 fL [facility] ([place]) NRBC abs 0.00 0.00 - 0.01 K/cumm [facility] ([place]) Blood 07/26/2024 7:01 PM HOME HEALTH ATTENDANT 07/26/2024 7:13 PM HOME HEALTH ATTENDANT us Joseph Ford MD LAB BLOOD ORDERABLES Final Res ult [facility] ([place]) 1 [facility] Department [place] [address] * Comprehensive metabolic panel (07/26/2024 7:01 PM HOME HEALTH ATTENDANT) Pathologist [facility] Sodium 137 135 - 145 mmol/L Potassium, pl 4.0 3.3 - 4.9 mmol/L [facility] ([place]) Chloride 104 97 - 110 mmol/L [facility] ([place]) CO2 22 22 - 32 mmol/L [facility] ([place]) Anion gap 11 2 - 15 mmol/L [facility] ([place]) BUN 16 6 - 25 mg/dL [facility] ([place]) Creatinine 0.73 0.60 - 1.10 mg/dL [facility] ([place]) Glucose 117 70 - 199 mg/dL [facility] ([place]) Comment: Interpretive Data Fasting glucose >/= 126 mg/dl is diagnostic for diabetes. Fasting is defined as no caloric intake for at least 8 hours. Fasting glucose between 100 mg/dl to 125 mg/dl is diagnostic of prediabetes. In a patient with classic symptoms of hyperglycemia or hyperglycemic crisis, a random glucose >/= 200 mg/dl is diagnostic for diabetes. In the absence of unequivocal hyperglycemia, results should be confirmed by repeat testing. The classification and Diagnosis of Diabetes Diabetes Care 2021; 46: S19-S40. Current interpretive data was last revised 2022. Calcium 9.1 8.5 - 10.3 mg/dL [facility] ([place]) Bilirubin, total <0.2 0.1 - 1.2 mg/dL [facility] ([place]) Protein, pl 6.7 6.5 - 8.5 g/dL [facility] ([place]) Albumin 4.2 3.5 - 5.0 g/dL [facility] ([place]) Alk phos 118 40 - 130 Units/L [facility] ([place]) ALT 10 7 - 45 Units/L [facility] ([place]) AST 13 10 - 45 Units/L [facility] ([place]) Blood 07/26/2024 7:01 PM HOME HEALTH ATTENDANT 07/26/2024 7:13 PM HOME HEALTH ATTENDANT us Joseph Ford MD LAB BLOOD ORDERABLES Final Res ult [facility] ([place]) 1 [facility] Department [place] [address] * ECG 12 lead (07/19/2024 9:23 PM HOME HEALTH ATTENDANT) 07/19/2024 9:23 PM HOME HEALTH ATTENDANT Narrative [facility] - 07/20/2024 4:33 PM HOME HEALTH ATTENDANT Vent Rate: 83 bpm RR Interval: 715 msec MN Interval: 152 msec QRS Duration: 88 msec QT Interval: 325 msec QTC Interval: 365 msec P-R-T Gonzales: 75 - 61 - 77 degrees IMPRESSION: SINUS RHYTHM NORMAL ECG NO CHANGE FROM PREVIOUS TRACING NOTED Electronically Signed By: Cruz Claudio MD Tom Maier MD ECG ORDERABLES Final Resul t Performing Organization Address [facility] Co de Phone Number [facility] * Albumin Creatinine Ratio, Urine (01/16/2024 10:50 AM CDT) Albumin Ur <12.0 mg/L Comment: Interpretive Data No reference range established. Current interpretive data was last revised 2018. Creatinine Ur 143.7 mg/dL [facility] Comment: Interpretive Data No reference range established. Current interpretive data was last revised 2018. Albumin Creatinine Ratio, Ur <8 1 - 29 mg/g [facility] Urine 01/16/2024 10:5 0 AM CDT 01/16/2024 7:12 PM CDT Result [facility] Tahira Kelly NP LAB URINE ORDERABLES Final Re sult Performing Organization Address [facility] de Phone Number [facility] [address] [employer] [place] [address] * Hemoglobin A1c (01/16/2024 10:50 AM CDT) Pathologist [facility] Hgb A1C 5.3 4.0 - 5.6 % Estimated Average Glucose 105 mg/dL [facility] Comment: The ADA recommends reporting an estimated Average Glucose (eAG) with all Hemoglobin A1c results using the equation derived from a study of 507 normal and diabetic adults. Minority populations were underrepresented and children were not included. (Diabetes Care 31:1762-1813, 2008). The eAG is not equivalent to a fasting glucose. Blood 01/16/2024 10:5 0 AM CDT 01/16/2024 7:12 PM CDT Result [facility] Tahira Kelly NP LAB BLOOD ORDERABLES Final Re sult Performing Organization Address [facility] Co de Phone Number [facility] [address] [employer] [place] [address] * (ABNORMAL) Lipid panel (01/16/2024 10:50 AM CDT) Cholesterol 304(H) 30 - 199 mg/dL Comment: Interpretive Data Ages < or = 19 years Acceptable: <170 mg/dL Borderline high: 170-199 mg/dL High: >or= 200 mg/dL Ages > or = 20 years Desirable: <200 mg/dL Borderline high: 200-239 mg/dL High: >or= 240 mg/dL Literature References: 1. Expert Panel on Integrated Guidelines for Cardiovascular Health and Risk Reduction in Children and Adolescents. Pediatrics 2011;128:S213 2. NCEP Expert Panel. Circulation 2004;110:227 Current Interpretive Data was last revised on 2018. Triglycerides 256(H) <=149 mg/dL [facility] Comment: Interpretive Data Ages < or = 9 years Acceptable: <75 mg/dL Borderline high: 75-99 mg/dL High: >or= 100 mg/dL Ages 10 to 20 years Acceptable: <90 mg/dL Borderline high: 90-129 mg/dL High: >or= 130 mg/dL Ages > or = 20 years Desirable: <150 mg/dL Borderline high: 150-199 mg/dL High: 200-499 mg/dL Very high: >or= 499 mg/dL Literature References: 1. Expert Panel on Integrated Guidelines for Cardiovascular Health and Risk Reduction in Children and Adolescents. Pediatrics 2011;128:S213 2. NCEP Expert Panel. Circulation 2004;110:227 Current Interpretive Data was last revised on 2018. HDL 55 >=40 mg/dL [facility] Comment: Interpretive Data Ages < or = 19 years Acceptable: >45 mg/dL Borderline low: 40-45 mg/dL Low: <40 mg/dL Ages > or = 20 years Desirable: >or= 60 mg/dL Low: <40 mg/dL Literature References: 1. Expert Panel on Integrated Guidelines for Cardiovascular Health and Risk Reduction in Children and Adolescents. Pediatrics 2011;128:S213 2. NCEP Expert Panel. Circulation 2004;110:227 Current Interpretive Data was last revised on 2018. LDL, calculated 198(H) <=129 mg/dL [facility] Comment: Interpretive Data Ages < or = 19 years Acceptable: <110 mg/dL Borderline high: 110-129 mg/dL High: >or= 130 mg/dL Ages > or = 20 years Optimal: <100 mg/dL Near optimal: 100-129 mg/dL Borderline high: 130-159 mg/dL High: >160 mg/dL Literature References: 1. Expert Panel on Integrated Guidelines for Cardiovascular Health and Risk Reduction in Children and Adolescents. Pediatrics 2011;128:S213 2. NCEP Expert Panel. Circulation 2004;110:227 Current Interpretive Data was last revised on 2018. Non-HDL Cholesterol 249 mg/dL [facility] Comment: Interpretive Data Ages < or = 19 years Acceptable: <120 mg/dL Borderline high: 120-144 mg/dL High: >145 mg/dL Ages > or = 20 years When triglycerides are >200 mg/dL, Non-HDL cholesterol is a secondary target of therapy with treatment goals that are 30 mg/dL greater than the LDL cholesterol target. Literature References: 1. Expert Panel on Integrated Guidelines for Cardiovascular Health and Risk Reduction in Children and Adolescents. Pediatrics 2011;128:S213 2. NCEP Expert Panel. Circulation 2004;110:227 Current Interpretive Data was last revised on 2018. Chol/HDL ratio 6 [facility] Blood 01/16/2024 10:5 0 AM CDT 01/16/2024 7:12 PM CDT us Tahira Kelly NP LAB BLOOD ORDERABLES Final Re sult [facility] [address] Department [place] [address] * SCREENING MAMMOGRAM BILATERAL W CHICA (10/31/2023 3:19 PM CDT) Anatomical Region Laterality Modality Breast Bilateral Mammography 10/31/2023 3:45 PM CDT Impressions 10/31/2023 3:45 PM CDT There is no mammographic evidence of malignancy. A 1 year screening mammogram is recommended. BI-RADS: 1 - Negative. The patient has been or will be contacted. The patient will be entered into a reminder system with a target due date of 1 year for her next mammogram. Electronically signed by: Marcos Rojas M.D. Narrative 10/31/2023 3:45 PM CDT EXAMINATION: SCREENING MAMMOGRAM BILATERAL W CHICA ORDERING HEALTHCARE PROVIDER: TAHIRA KELLY HISTORY: Routine screening mammography. COMPARISON: Limited breast ultrasound 10/22/2014. Mammogram (2D) 06/02/2013. TECHNIQUE: CC and MLO views of the bilateral breasts were obtained with digital technique using breast tomosynthesis with C view. XCCL views of the bilateral breasts were obtained with 2-D digital technique. Computer aided detection was utilized. FINDINGS: DENSITY: The tissue of the bilateral breasts is almost entirely fatty. BREASTS: There are no suspicious masses, suspicious calcifications, or other suspicious findings in either breast. There has been no suspicious change on mammogram. us Tahira Kelly [employer]OL[employer] IMG MAMMO PROCEDURES Final Re sult * Hepatitis panel, acute (05/16/2014 5:29 PM CDT) HepBsAg NONREACT NONREACTIVE Comment: Siemens Cent[employer] using AVRIL (chemiluminescent immunoassay) technology. NONREACTIVE: IgM antibodies to Hepatitis B Surface antigen not detected. REACTIVE: IgM antibodies to Hepatitis B Surface antigen detected. Reactive results will be confirmed by neutralization testing. HBsAb (immune status) NONREACT NONREACTIVE 05/16/2014 6:17 PM T [facility] HISTORICAL RESULTS Comment: Siemens CentaurXP using AVRIL (chemiluminescent immunoassay) technology. NONREACTIVE: IgM antibodies to Hepatitis B Surface antibody not detected. REACTIVE: IgM antibodies to Hepatitis B Surface antibody detected. Hep B core IgM NONREACT NONREACTIVE 4 7:07 PM CDT [facility] HISTORICAL RESULTS Comment: Siemens CentaurXP using AVRIL (chemiluminescent immunoassay) technology. NONREACTIVE: IgM antibodies to Hepatitis B Core antigen not detected. EQUIVOCAL: IgM antibodies to Hepatitis B Core antigen may or may not be present. Obtain a new specimen and retest. REACTIVE: IgM antibodies to Hepatitis B Core antigen detected. Hep A IgM NONREACT NONREACTIVE Comment: Siemens CentaurXP using AVRIL (chemiluminescent immunoassay) technology. NONREACTIVE: IgM antibodies to Hepatitis A not detected. This does not exclude possibility of exposure to Hepatitis A or early acute infection. EQUIVOCAL:IgM antibodies to Hepatitis A may or may not be present. Suggest recollection and retest. REACTIVE: Antibodies to Hepatitis A detected. Hep C Ab NONREACT NONREACTIVE 05/16/2014 7:07 PM CDT [facility] HISTORICAL RESULTS Comment: Siemens [employer] using AVRIL (chemiluminescent immunoassay) technology. NONREACTIVE: Antibodies to Hepatitis C not detected. This does not exclude early acute Hepatitis C infection, possibility of exposure to Hepatitis C, antibodies below detection limit, or to lack of antibody reactivity to the antigen used in this assay. EQUIVOCAL: Antibodies to Hepatitis C may or may not be present. Sample to be confirmed by real-time PCR method. REACTIVE: Antibodies to Hepatitis C detected. 05/16/2014 5:29 PM CDT 05/16/2014 5:36 PM CDT Nabor Truong MD LAB MICROBIOLOGY - GENERAL [facility] Final Result [facility] HISTORICAL RESULTS from Last 3 Months or Most Recently Relevant to Health Maintenance Additional Health Concerns Infection Onset Date Last Indicated COVID: Recovered Comment:Added based on recent COVID infection. 08/13/2024 025 Insurance [facility] Advance Directives For more information, please contact: [phone] Documents on File Type Date Recorded Patient Hand Twister Expl anation ADVANCE DIRECTIVE 04/29/2023 4:00 PM DNR ADVANCE DIRECTIVE 04/26/2023 4:27 PM POWER OF HEAD OF MUSIC-MEDICAL Power of Rd Lab Technician 04/24/2023 8:00 AM * Full Code (Latest Code Status on File) Date Activated Date Inactivated Comments 04/19/2024 10:53 AM 04/20/2024 8:39 PM * Full Code Date Activated Date Inactivated Comments 11/28/2023 10:03 PM 11/29/2023 11:25 PM * Full Code Date Activated Date Inactivated Comments 11/27/2023 5:36 AM 11/27/2023 1:20 PM * Full Code Date Activated Date Inactivated Comments 06/04/2023 9:51 AM 06/05/2023 5:11 AM * Full Code Date Activated Date Inactivated Comments 04/23/2023 12:32 PM 04/26/2023 12:17 AM Care Teams Front Maker Relationship Specialty Start Date End Date Eli Abbott MD [address] [address] PCP - General Obstetrics and Gynecology 10/07/24 [place] [address] [address] Consulting Physician Gastroenterology 12/22/22 [place] [address] [address] Consulting Physician Neurosurgery 09/16/23 [place] [address] [place] [address] Referring Physician Psychiatry & Neurology 09/16/23
--- OUTSIDE RECORDS SUMMARY | 2024-10-13 01:26 | XMS_ITS | Encounter Summary ---
Author Organization [facility] Address [address] [place] [address] Phone Care Team Providers Care Mail Agent Name Role Phone Brett Chávez MD Primary Care Provider [phone] Cedric Martinez MD Primary Care Provider [phone] Sue Snow MD Primary Care Provider [phone] Jn Polo PAC Unavailable [phone] Eli Abbott MD Primary Care Provider [phone] Reason for Visit * Reason Comments Medication Refill Encounter Details Date Type Department Care Team (Late st Contact Info) Description 01/27/2020 Refill [facility] [address] [place] [id number] Cruz Velasquez MD [address] [place] [address] Medication Refill Social History Tobacco [...] have Coronavirus / COVID-19? No / Unsure 01/28/2020 12:53 PM CDT documented as of this encounter Plan of Treatment Upcoming Encounters Date Type Department Care Team (Late st Contact Info) Description 10/13/2024 2:00 PM CDT Appointment [facility] MRI [address] [place] [address] Jn Polo, PAC [address] [facility] [address] [place] [address] Discharge Disposition: Discharged to home or Selfcare documented as of this encounter Visit Diagnoses Not on filedocumented in this encounter Additional Health Concerns Infection Onset Date Last Indicated Resolved Time COVID - 19 08/01/2020 08/01/2020 08/05/2020 1:58 PM ATHLETIC EQUIPMENT MANAGER COVID - 19 08/17/2021 08/17/2021 08/20/2021 6:06 AM ATHLETIC EQUIPMENT MANAGER COVID - 19 Confirmed 08/17/2021 08/17/2021 022 12:16 AM ATHLETIC EQUIPMENT MANAGER COVID - 19 07/26/2022 09/17/2022 09/17/2022 8:04 AM ATHLETIC EQUIPMENT MANAGER COVID - 19 07/20/2024 07/20/2024 07/20/2024 9:02 PM ATHLETIC EQUIPMENT MANAGER documented as of this encounter Care Teams Mail Agent Relationship Specialty Start Date End Date Brett Chávez MD [address] [place] [address] PCP - General Family Medicine 06/12/15 03/25/23 Cedric Martinez MD [address] [place] [address] [address] [place] [address] PCP - General Family Medicine 03/26/23 02/04/24 Sue Snow MD [address] [place] [address] [place] [address] PCP - General Internal Medicine 02/05/24 09/02/24 Eli Abbott MD [address] [place] [address] PCP - General Family Medicine 09/03/24 Jn Polo PAC [address] [place] [address] Physician Supervisor [place] Physician Supervisor [place] 07/13/24 documented as of this encounter
--- OUTSIDE RECORDS SUMMARY | 2024-10-13 01:26 | XMS_ITS ---
Author Organization [facility] Address [address] [place] [address] Phone Care Team Providers Care Residential Pest Control Technician Name Role Phone Jn Polo PAC Unavailable [phone] Eli Abbott MD Primary Care Provider [phone] OnCall Chronic Condition Monitoring Status:Enrolled (Active) Start date:07/17/2023 Enrollment date:07/18/2023 Current support & services provided:Asthma Management, COPD Management Related social drivers of health:Intimate Partner Violence, Social Connections, Alcohol Use, Tobacco Use, Financial Resource Strain,Depression, Stress, Physical Activity, Food Insecurity, Transportation Needs, Housing Stability, Utilities Continued Care and Services Coordination
--- OUTSIDE RECORDS SUMMARY | 2024-10-13 01:26 | XMS_ITS | Clinical Summary ---
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 (08/08/2024 4:28 PM COAT FITTER) 08/08/2024 4:28 PM COAT FITTER Narrative [facility] - 08/09/2024 7:40 AM COAT FITTER Vent Rate: 91 bpm RR Interval: 653 msec MA Interval: 157 msec QRS Duration: 89 msec QT Interval: 330 msec QTC Interval: 379 msec P-R-T Cove: 63 - 21 - 48 degrees IMPRESSION: SINUS RHYTHM NORMAL ECG Electronically Signed By: Brennen Birmingham MD, FACC us Maryann Myers PA ECG ORDERABLES Final Result [facility] * Troponin T high-sensitivity series (baseline, 2hr, 4hr, 6hr) (08/08/2024 3:26 AM COAT FITTER) Trop T hs <6 <=14 ng/L Comment: Interpretive Data For further hscTnT resources including the diagnostic algorithm and an aid in interpretation, copy and paste this link: https://nrl.testcatalog.org/show/hsTrop Current Interpretive Data last revised 2020. Blood 08/08/2024 3:26 AM COAT FITTER 08/08/2024 3:30 AM COAT FITTER us Cristóbal Hurd MD LAB BLOOD ORDERABLES Final Result NARA BENÍTEZ [address] Department [place] [address] * eGFR (08/08/2024 3:26 AM COAT FITTER) eGFR >90 >=60 mL/min/1. 73 m2 Comment: [...] last reviewed 2021. Blood 08/08/2024 3:26 AM COAT FITTER 08/08/2024 3:30 AM COAT FITTER us Cristóbal Hurd MD LAB BLOOD ORDERABLES Final Result NARA BENÍTEZ ([place]) 1 [facility] Department [place] [address] * Differential, auto (08/08/2024 3:26 AM COAT FITTER) Neutrophil abs 3.7 1.5 - 6.5 K/cumm Imm gran abs 0.0 0.0 - 0.1 K/cumm [facility] ([place]) Lymphocyte abs 2.2 0.8 - 3.3 K/cumm [facility] ([place]) Monocyte abs 0.4 0.2 - 0.8 K/cumm [facility] ([place]) Eosinophil abs 0.2 0.0 - 0.5 K/cumm [...] revised on 2017. Blood 08/08/2024 3:26 AM COAT FITTER 08/08/2024 3:30 AM COAT FITTER us Cristóbal Hurd MD LAB BLOOD ORDERABLES Final Result [facility] ([place]) 1 [facility] Department [place] [address] * (ABNORMAL) CBC with auto differential (08/08/2024 3:26 AM COAT FITTER) WBC 6.5 3.8 - 9.9 K/cumm Hgb [...] [facility] ([place]) Blood 08/08/2024 3:26 AM COAT FITTER 08/08/2024 3:30 AM COAT FITTER us Cristóbal Hurd MD LAB BLOOD ORDERABLES Final Result NARA BENÍTEZ ([place]) 1 [facility] Department [place] [address] * Comprehensive metabolic panel (08/08/2024 3:26 AM COAT FITTER) Sodium 135 135 - 145 mmol/L Potassium, pl 4.2 3.3 - 4.9 mmol/L [facility] ([place]) Chloride 102 97 - 110 mmol/L [facility] ([place]) CO2 23 22 - 32 mmol/L [facility] ([place]) Anion gap 10 2 - 15 mmol/L [facility] ([place]) BUN 13 6 - 25 mg/dL [facility] ([place]) Creatinine 0.64 0.60 - 1.10 [...] [facility] ([place]) Blood 08/08/2024 3:26 AM COAT FITTER 08/08/2024 3:30 AM COAT FITTER Cristóbal Hurd MD LAB BLOOD ORDERABLES Final Result [facility] [place] 1 [facility] Department [place] [address] * XR Chest PA Lateral 2 Views (08/07/2024 11:43 PM COAT FITTER) Anatomical Region Laterality Modality Body, Chest N/A Computed Radiogr aphy 08/07/2024 11:4 7 PM COAT FITTER Narrative 08/07/2024 11:48 PM COAT FITTER EXAM DESCRIPTION: XR CHEST PA LATERAL 2 [...] Ja Martínez M.D. AM: AM Report ID: [id number] Reading Location: [id number] Procedure Note Ja Martínez MD - 08/07/2024 [...] Ja Martínez M.D. AM: AM Report ID: [id number] Reading Location: [place] [address] Cristóbal Hurd MD IMG XR PROCEDURES Final Res ult * ECG 12 lead (08/07/2024 10:54 PM COAT FITTER) 08/07/2024 10:5 4 PM COAT FITTER Narrative [facility] - 08/08/2024 2:32 PM COAT FITTER Vent Rate: 122 bpm RR Interval: 490 msec MA Interval: 163 msec QRS Duration: 84 msec QT Interval: 291 msec QTC Interval: 363 msec P-R-T Cove: 69 - 32 - 47 degrees IMPRESSION: SINUS TACHYCARDIA POSSIBLE ANTERIOR MYOCARDIAL INFARCTION , PROBABLY OLD [30 ms Q WAVE IN V3/V4, OR R < 0.2 mV IN V4] ABNORMAL RHYTHM ECG NO CHANGE FROM PREVIOUS TRACING NOTED Electronically Signed By: Cruz Claudio MD Cristóbal Hurd MD ECG ORDERABLES Final Resul t [facility] * CT Chest PE (CTA) W Contrast (08/03/2024 9:31 PM COAT FITTER) Anatomical Region Laterality Modality Body N/A Computed Tomogra phy 08/03/2024 9:54 PM COAT FITTER Narrative 08/03/2024 9:57 PM COAT FITTER EXAM DESCRIPTION: CT CHEST PE (CTA) W [...] Santi Castrejon M.D. AR: CYN Report ID: [id number] Reading Location: [place] [address] Procedure Note Santi Castrejon MD - 08/03/2024 [...] Santi Castrejon M.D. AR: CYN Report ID: [id number] Reading Location: [place] [address] Tiffanie Ortega LEAD BUSINESS SYSTEMS ANALYST IMG CT PROCEDURES Fi nal Result * (ABNORMAL) Influenza A/B, RSV, and COVID-19 PCR Nasopharyngeal (08/03/2024 6:58 PM COAT FITTER) COVID-19 RNA Positive(A) Negative Influenza A RNA Negative Negative [facility] ([place]) Influenza B RNA Negative Negative [facility] ([place]) RSV RNA Negative Negative [facility] ([place]) Comment: Interpretive data: Testing performed by [facility]. This test is performed using the Kontron Xpert Xpress CoV-2/Flu/RSV plus assay. This is a multiplex, real- time reverse transcriptase PCR assay intended for the qualitative detection of nucleic acid from SARS-CoV-2, influenza A, influenza B, and respiratory syncytial virus. This assay has been cleared by the [place] Food and Drug administration. The performance characteristics have been verified by the [facility]. Results must be considered in the clinical context, and a negative result does not rule out infection. Interpretive Data last revised 2023 Nasopharyngeal 08/03/2024 6: 58 PM COAT FITTER 08/03/2024 7:02 PM COAT FITTER Narrative [facility] ([place]) - 08/03/2024 7:44 PM COAT FITTER Is the Patient experiencing symptoms consistent with COVID?->Yes Elif Killian MD LAB MICROBIOLOGY - GENERAL ORDERABLES Final Result NARA HernandezCOP[place]) 1 [facility] [place] [address] * Troponin T high-sensitivity series (baseline, 2hr, 4hr, 6hr) (08/03/2024 6:57 PM COAT FITTER) Trop T hs <6 <=14 ng/L Comment: Interpretive Data For further hscTnT resources including the diagnostic algorithm and an aid in interpretation, copy and paste this link: https://nrl.testcatalog.org/show/hsTrop Current Interpretive Data last revised 2020. Blood 08/03/2024 6:57 PM COAT FITTER 08/03/2024 7:02 PM COAT FITTER Elif Killian MD LAB BLOOD ORDERABLE S Final Result Performing Organization Address City/[facility]/ZIP Co de Phone Number NARA HernandezCOP[place]AND) 1 [facility] [place] [address] * eGFR (08/03/2024 6:57 PM COAT FITTER) eGFR >90 >=60 mL/min/1. 73 m2 Comment: [...] last reviewed 2021. Blood 08/03/2024 6:57 PM COAT FITTER 08/03/2024 7:02 PM COAT FITTER us Elif Killian MD LAB BLOOD ORDERABLE S Final Result [facility] ([place]) 1 [facility] Department [place] [address] * Differential, auto (08/03/2024 6:57 PM COAT FITTER) Neutrophil abs 2.3 1.5 - 6.5 K/cumm [...] revised on 2017. Blood 08/03/2024 6:57 PM COAT FITTER 08/03/2024 7:02 PM COAT FITTER us Elif Killian MD LAB BLOOD ORDERABLE S Final Result [facility] ([place]) 1 [facility] Department [place] [address] * (ABNORMAL) CBC with auto differential (08/03/2024 6:57 PM COAT FITTER) WBC 4.5 3.8 - 9.9 K/cumm Hgb 9.9(L) 11.9 - 15.5 g/dL [facility] ([place]) Hct 32.3(L) 35.6 - 45.5 [...] [facility] ([place]) Blood 08/03/2024 6:57 PM COAT FITTER 08/03/2024 7:02 PM COAT FITTER us Elif Killian MD LAB BLOOD ORDERABLE S Final Result [facility] ([place]) 1 [facility] Department [place] [address] * (ABNORMAL) Comprehensive metabolic panel (08/03/2024 6:57 PM COAT FITTER) Sodium 137 135 - 145 mmol/L Potassium, pl 4.1 3.3 - 4.9 mmol/L [facility] ([place]) Chloride 105 97 - 110 mmol/L [facility] ([place]) CO2 19(L) 22 - 32 mmol/L [facility] ([place]) Anion gap 13 2 - 15 mmol/L [facility] ([place]) BUN 14 6 - 25 mg/dL [facility] ([place]) Creatinine 0.67 0.60 - 1.10 mg/dL [facility] ([place]) Glucose 92 70 - 199 mg/dL [facility] ([place]) [...] [facility] ([place]) Blood 08/03/2024 6:57 PM COAT FITTER 08/03/2024 7:02 PM COAT FITTER Elif Killian MD LAB BLOOD ORDERABLE S Final Result Performing Organization Address City/[facility] Co de Phone Number [facility] ([place]) 1 [facility] Department [place] [address] * ECG 12 lead (08/03/2024 6:50 PM COAT FITTER) 08/03/2024 6:50 PM COAT FITTER Narrative [facility] - 08/04/2024 7:51 AM COAT FITTER Vent Rate: 104 bpm RR Interval: 574 msec MA Interval: 161 msec QRS Duration: 89 msec QT Interval: 314 msec QTC Interval: 374 msec P-R-T Cove: 54 - 55 - 50 degrees IMPRESSION: SINUS TACHYCARDIA LOW QRS VOLTAGE IN PRECORDIAL LEADS [QRS DEFLECTION < 1.0 mV IN CHEST LEADS] ABNORMAL RHYTHM ECG NO CHANGE FROM PREVIOUS TRACING NOTED Electronically Signed By: Cruz Claudio MD Elif Killian MD ECG ORDERABLES Fin al Result Performing Organization Address City/[facility]/ZIP Co de Phone Number [facility] * eGFR (07/26/2024 7:01 PM COAT FITTER) eGFR >90 >=60 mL/min/1. 73 m2 Comment: [...] last reviewed 2021. Blood 07/26/2024 7:01 PM COAT FITTER 07/26/2024 7:13 PM COAT FITTER us Joseph Ford MD LAB BLOOD ORDERABLES Final Res ult [facility] ([place]) 1 [facility] Department [place] [address] * Differential, auto (07/26/2024 7:01 PM COAT FITTER) Neutrophil abs 3.5 1.5 - 6.5 K/cumm [...] revised on 2017. Blood 07/26/2024 7:01 PM COAT FITTER 07/26/2024 7:13 PM COAT FITTER us Joseph Ford MD LAB BLOOD ORDERABLES Final Res ult [facility] ([place]) 1 [facility] Department [place] [address] * (ABNORMAL) CBC with auto differential (07/26/2024 7:01 PM COAT FITTER) WBC 5.9 3.8 - 9.9 K/cumm Hgb [...] [facility] ([place]) Blood 07/26/2024 7:01 PM COAT FITTER 07/26/2024 7:13 PM COAT FITTER us Joseph Ford MD LAB BLOOD ORDERABLES Final Res ult [facility] ([place]) 1 [facility] Department [place] [address] * Comprehensive metabolic panel (07/26/2024 7:01 PM COAT FITTER) Sodium 137 135 - 145 mmol/L Potassium, pl 4.0 3.3 - 4.9 mmol/L [facility] ([place]) Chloride 104 97 - 110 mmol/L [facility] ([place]) CO2 22 22 - 32 mmol/L [facility] ([place]) Anion gap 11 2 - 15 mmol/L [facility] ([place]) BUN 16 6 - 25 mg/dL [facility] ([place]) Creatinine 0.73 0.60 - 1.10 [...] 2022. Calcium 9.1 8.5 - 10.3 mg/dL [facility] ([place]) Bilirubin, total <0.2 0.1 - 1.2 mg/dL [facility] ([place]) Protein, pl 6.7 6.5 - 8.5 g/dL [facility] ([place]) Albumin 4.2 3.5 - 5.0 g/dL [facility] ([place]) Alk phos 118 40 - 130 Units/L [facility] ([place]) ALT 10 7 - 45 Units/L [facility] ([place]) AST 13 10 - 45 Units/L [facility] ([place]) Blood 07/26/2024 7:01 PM COAT FITTER 07/26/2024 7:13 PM COAT FITTER us Joseph Ford MD LAB BLOOD ORDERABLES Final Res ult Performing Organization Address City/[facility] Co de Phone Number [facility] ([place]) 1 [facility] Department [place] [address] * ECG 12 lead (07/19/2024 9:23 PM COAT FITTER) 07/19/2024 9:23 PM COAT FITTER Narrative [facility] - 07/20/2024 4:33 PM COAT FITTER Vent Rate: 83 bpm RR Interval: 715 msec MA Interval: 152 msec QRS Duration: 88 msec QT Interval: 325 msec QTC Interval: 365 msec P-R-T Cove: 75 - 61 - 77 degrees IMPRESSION: SINUS RHYTHM NORMAL ECG NO CHANGE FROM PREVIOUS TRACING NOTED Electronically Signed By: Cruz Claudio MD us Tom Maier MD ECG ORDERABLES Final Resul t Performing Organization Address City/[facility]/ZIP Co de Phone Number [facility] * Albumin Creatinine Ratio, Urine (01/16/2024 10:50 AM CDT) Albumin Ur <12.0 mg/L Comment: Interpretive Data No reference range established. Current interpretive data was last revised 2018. Creatinine Ur 143.7 mg/dL [facility] Comment: Interpretive Data No reference range established. Current interpretive data was last revised 2018. Albumin Creatinine Ratio, Ur <8 1 - 29 mg/g [facility] Urine 01/16/2024 10:5 0 AM CDT 01/16/2024 7:12 PM CDT Tahira Kelly NP LAB URINE ORDERABLES Final Re sult Performing Organization Address [facility] de Phone Number [facility] [address] Department [place] [address] * Hemoglobin A1c (01/16/2024 10:50 AM CDT) Hgb A1C 5.3 4.0 - 5.6 % Estimated Average Glucose 105 mg/dL [facility] Comment: The ADA recommends reporting an estimated Average Glucose (eAG) with all Hemoglobin A1c results using the equation derived from a study of 507 normal and diabetic adults. Minority populations were underrepresented and children were not included. (Diabetes Care 31:3400-7293, 2008). The eAG is not equivalent to a fasting glucose. Blood 01/16/2024 10:5 0 AM CDT 01/16/2024 7:12 PM CDT Tahira Kelly NP LAB BLOOD ORDERABLES Final Re sult Performing Organization Address [facility] de Phone Number [facility] [address] [address] Department [place] [address] * (ABNORMAL) Lipid panel (01/16/2024 10:50 AM [...] Pediatrics 2011;128:S213 2. NCEP Expert Panel. Circulation 2003;110:227 Current Interpretive Data was last revised on [...] 01/16/2024 7:12 PM CDT us Tahira Kelly LEAD BUSINESS SYSTEMS ANALYST LAB BLOOD ORDERABLES Final Re sult [facility] [address] Department [place] [address] * SCREENING MAMMOGRAM BILATERAL W CHICA (10/31/2023 [...] suspicious change on mammogram. us Tahira Kelly LEAD BUSINESS SYSTEMS ANALYST IMG MAMMO PROCEDURES Final Re sult * Hepatitis panel, acute (05/16/2014 5:29 PM CDT) HepBsAg NONREACT NONREACTIVE Comment: Siemens CentaurXP using AVRIL (chemiluminescent immunoassay) technology. NONREACTIVE: IgM antibodies to Hepatitis B Surface antigen not detected. REACTIVE: IgM antibodies to Hepatitis B Surface antigen detected. Reactive results will be confirmed by neutralization testing. HBsAb (immune status) NONREACT NONREACTIVE 05/16/2014 6:17 PM CDT [facility] HISTORICAL RESULTS Comment: Siemens CentaurXP using AVRIL (chemiluminescent immunoassay) technology. NONREACTIVE: IgM antibodies to Hepatitis B Surface antibody not detected. REACTIVE: IgM antibodies to Hepatitis B Surface antibody detected. Hep B core IgM NONREACT NONREACTIVE 4 7:07 PM CDT [facility] HISTORICAL RESULTS Comment: Siemens CentaurXP using AVRIL (chemiluminescent immunoassay) technology. NONREACTIVE: IgM antibodies to Hepatitis B Core antigen not detected. EQUIVOCAL: IgM antibodies to Hepatitis B Core antigen may or may not be present. Obtain a new specimen and retest. REACTIVE: IgM antibodies to Hepatitis B Core antigen detected. Hep A IgM NONREACT NONREACTIVE 05/16/2014 7:07 PM CDT [facility] HISTORICAL RESULTS Comment: Siemens CentaurXP using AVRIL (chemiluminescent immunoassay) technology. NONREACTIVE: IgM antibodies to Hepatitis A not detected. This does not exclude possibility of exposure to Hepatitis A or early acute infection. EQUIVOCAL:IgM antibodies to Hepatitis A may or may not be present. Suggest recollection and retest. REACTIVE: Antibodies to Hepatitis A detected. Hep C Ab NONREACT NONREACTIVE 05/16/2014 7:[address] [facility]ON[facility] HISTORICAL RESULTS Comment: Siemens CentaurXP using AVRIL (chemiluminescent immunoassay) technology. NONREACTIVE: Antibodies [...] Truong MD LAB MICROBIOLOGY - GENERAL O RDERABLES Final Result [facility] IPXI HISTORICAL RESULTS from Last 3 Months or Most Recently Relevant to Health Maintenance Additional Health Concerns Infection Onset Date Last Indicated COVID: Recovered Comment:Added based on recent COVID infection. 08/13/2024 025 Insurance Advance Directives For more information, please contact: [phone] Documents on File Type Date Recorded Patient Behavioral Health Care Coordinator Expl anation ADVANCE DIRECTIVE 04/29/2023 4:00 PM DNR ADVANCE DIRECTIVE 04/26/2023 4:27 PM POWER OF PROPELLANT ASSEMBLER-MEDICAL Power of Mortgage Counselor 04/24/2023 8:00 AM * Full Code (Latest [...] 12:32 PM 04/26/2023 12:17 AM Care Teams Pulling Unit Operator Relationship Specialty Start Date End Date Eli Abbott MD [address] [address] [place] [address] PCP - General Obstetrics and Gynecology 10/07/24 [place] [address] [address] [address] Consulting Physician Gastroenterology 12/22/22 [place] [address] [address] [facility] [address] [place] [address] Consulting Physician Neurosurgery 2/12/24 Dalton Fragoso MD [address] [place] [address] Referring Physician Psychiatry & Neurology 09/16/23
--- OUTSIDE RECORDS SUMMARY | 2024-10-13 01:26 | XMS_ITS | Clinical Summary ---
Author Organization [facility] Address [address] [place] [address] Phone Care Team Providers Care Bench Assembler Name Role Phone MelaniJn PAC Unavailable Eli Abbott MD Primary Care Provider [phone] Allergies Active Allergy Reactions Criticality Noted Date Comments Bee Venom Anaphylaxis 09/15/2016 Wasps or hornets Ciprofloxacin Itching 10/22/2015 Fentanyl Itching,Swelling 10/22/2015 Iodinated Contrast Media Hives 01/05/2019 Levofloxacin In D5w Itching 10/22/2015 redness Morphine Hives 03/12/2024 Other-Environmental Allergen (Not Found In Search) Hives,Itching High 08/29/2022 Cat scan contrast - Whelps, redness per patient statement Other-Food Allergen (Not Found In Search) Swelling High 08/29/2022 Lobster - Wheezing, and swelling of her lips Povidone-Iodine Other (see Comments) 08/29/2022 Skin irritation, redness Ceftriaxone Itching 06/12/2015 whelps and redness Sulfa Antibiotics Unknown 10/22/2015 Medications Multiple Vitamins-Syrup Maker als (MULTIVITAMIN PO) Take 1 Tab by mouth daily. Active albuterol (PROVENTIL, VENTOLIN) (2.5 MG/3ML) 0.083% Nebulizer Soln INHALE 3ML 3 TIMES A DAY BY NEBULIZATION ROUTE NEEDED FOR 30 DAYS. 270 mL 9 Active Additional Information Patient taking differently: 2.5 mg Nebulization EVERY 6 HOURS PRN, Reported on 09/03/2024 VENTOLIN HFA 108 (90 Base) MCG/ACT Aerosol Solution INHALE 2 PUFFS BY MOUTH EVERY 4 HOURS NEEDED FOR WHEEZE 18 Inhaler 5 0 Active Ferrous Sulfate (Iron) 325 (65 Fe) MG Tablet Take 325 mg by mouth daily. Active Potassium 99 MG Tablet Take 1 Tablet by mouth daily. Active [place] 3-6-9 Fatty Acids (OMEGA 3-6-9 COMPLEX PO) Take 1 Tablet by mouth daily. Active Cyanocobalamin (Vitamin B-12 CR) 1000 MCG Tablet Controlled Release 1,000 mcg by Intramuscular route every 30 days. Active diphenhydrAMIN E (BENADRYL) 25 MG Capsule Take 25 mg by mouth nightly as needed for Sleep. Active melatonin 3 MG TabletIndicati ons:Insomnia Take 3 mg by mouth nightly. Indications: Trouble Sleeping Active Calcium Carbonate-Jessica min D (CALCIUM-CARB 600 + D PO) Take 1 Tablet by mouth daily. Active dulaglutide (Trulicity) 0.75 MG/0.5ML Solution Pen-injector INJECT 0.75 MG UNDER THE SKIN ONCE A WEEK 3 Active metoclopramide (REGLAN) 10 MG Tablet Take 1 Tablet by mouth 4 times daily as needed for Nausea - 1st line. 10 Tablet 4 Active Additional Information Patient not taking.Reported on 09/03/2024 carBAMazepine (CARBATROL) 100 MG CAPSULE SR 12 HR Take 200 mg by mouth 2 times daily (with meals). Active lisinopril (PRINIVIL, ZESTRIL) 10 MG Tablet Take 10 mg by mouth daily. Active cyclobenzaprin e (FLEXERIL) 10 MG Tablet Take 10 mg by mouth 3 times daily as needed. Active naproxen (NAPROSYN) 250 MG Tablet Take 250 mg by mouth 2 times daily (with meals). Active HYDROcodone-ac etaminophen (NORCO) 5-325 MG TabletIndicati ons:Neck pain,Acute pain of right shoulder,Right elbow pain,Contusion of right hand, initial encounter,Low back pain,Contusion of left knee, initial encounter Take 1 Tablet by mouth every 8 hours as needed for Moderate or more severe pain. 12 Tablet 4 Active Additional Information Patient not taking.Reported on 09/03/2024 Hydrocortisone , Perianal, (Anusol-HC) 2.5 % Cream Apply daily. Apply to rectum as directed. 28 g 4 Active Additional Information Patient not taking.Reported on 09/03/2024 metoclopramide (REGLAN) 10 MG Tablet Take 1 Tablet by mouth 4 times daily as needed for Nausea - 1st line. 10 Tablet 4 Active Additional Information Patient not taking.Reported on 09/03/2024 predniSONE (DELTASONE) 50 MG Tablet Take 1 Tablet by mouth daily. 5 Tablet 4 Active Additional Information Patient not taking.Reported on 09/03/2024 ondansetron (ZOFRAN) 4 MG Tablet Take 1 Tablet by mouth every 8 hours as needed for Nausea - 1st line. 10 Tablet 4 Active Additional Information Patient not taking.Reported on 09/03/2024 HYDROcodone-ib uprofen (VICOPROFEN) 7.5-200 MG TabletIndicati ons:Acute pain of right shoulder Take 1 Tablet by mouth every 4 hours as needed for Moderate or more severe pain. 20 Tablet 4 Active Additional Information Patient not taking.Reported on 09/03/2024 ondansetron (ZOFRAN) 4 MG Tablet Take 1-2 Tablets by mouth every 8 hours as needed for Nausea - 1st line. 30 Tablet 4 Active Additional Information Patient not taking.Reported on 09/03/2024 albuterol 108 (90 Base) MCG/ACT Aerosol Solution take 2 Puffs by inhalation every 6 hours as needed for Cough or Wheezing. 8.5 g 2 5 Active levETIRAcetam (KEPPRA) 250 MG Tablet Take 250 mg by mouth 2 times daily. Active atorvastatin (LIPITOR) 10 MG Tablet Take 10 mg by mouth daily. Active oxyCODONE (ROXICODONE) 5 MG TabletIndicati ons:Acute Pain Take 1 Tablet by mouth 2 times daily as needed for Moderate or more severe pain for up to 5 days. Indications: Acute Pain 10 Tablet 5 10/15/19 25 Active pantoprazole (PROTONIX) 40 MG Tablet Delayed Response Take 1 Tablet by mouth daily. 30 Tablet 5 Active triamcinolone (KENALOG) 0.1 % Cream Apply 3 times daily. Application Site: rash (Description and Location) 30 g 5 Active metoclopramide (REGLAN) 10 MG Tablet Take 1 Tablet by mouth 4 times daily as needed for Nausea - 1st line. 10 Tablet 5 Active Active Problems Problem Noted Date Diagnosed Date Tear of medial meniscus of left knee, initial en counter 09/06/2022 Panlobular emphysema 02/13/2018 AMANDA (obstructive sleep apnea) 02/13/2018 Tobacco use disorder 02/13/2018 Non morbid obesity 02/13/2018 Pulmonary hypertension 02/13/2018 Encounters Date Type Department Care Team Description 10/11/2024 4:01 PM CDT - 10/11/2024 6:27 PM CDT Emergency [facility] [address] [place] [address] Arielle Galdamez MD Nausea and vomiting, unspecified vomiting type Discharge Disposition: Discharged to home or Selfcare 10/11/2024 Travel 10/09/2024 4:16 PM AUTO WHEEL ALIGNMENT SPECIALIST - 10/09/2024 7:19 PM [facility] Emergency [facility] [address] [place] [address] Maame Ayala MD Upper GI bleeding Discharge Disposition: Discharged to home or Selfcare 10/09/2024 Travel 09/03/2024 10:00 AM AUTO WHEEL ALIGNMENT SPECIALIST Office Visit [facility] [place] [address] [place] [address] Jn Polo, PAC Right shoulder pain, unspecified chronicity (Primary Dx) Discharge Disposition: Discharged to home or Selfcare 09/03/2024 Travel 08/25/2024 Travel 08/18/2024 Travel 08/09/2024 12:44 AM AUTO WHEEL ALIGNMENT SPECIALIST - 08/09/2024 1:16 AM [facility] Emergency [facility] [address] [place] [address] Delaney Israel MD Pleurisy Discharge Disposition: Discharged to home or Selfcare 08/09/2024 Travel 08/06/2024 Telephone [facility] at [address] [place] [id number] Ami Ibanez, PT Appointment (Same-day cancel (initial evaluation)) 07/20/2024 7:09 PM AUTO WHEEL ALIGNMENT SPECIALIST - 07/20/2024 9:58 PM AUTO WHEEL ALIGNMENT SPECIALIST Emergency [facility] Emergency [address] [place] [address] Adrian Yap MD Nonspecific chest pain Discharge Disposition: Discharged to home or Selfcare 07/20/2024 Travel from Last 3 Months Immunizations Immunization Administration Dates Next Due TDAP Vaccine 02/05/2024,03/27/2021 Family History Medical History Relation Name Comments No Known Problems Father Heart Attack Mother Hypertension Mother Relation Name Status Comments Father Alive Mother Alive Social History Tobacco Use Types Packs/Day Years Used Date Smoking Tobacco: Every Day Cigarettes 0.5 35 Smokeless Tobacco: Never Tobacco Cessation:Ready to Q uit: Not Asked; Counseling Given: Not Answered Alcohol Use Standard Drinks/Week Comments No 0 (1 standard drink = 0.6 oz pur e alcohol) Sexually Active Control Partners Comments Yes Surgical Male Comments No Sex and Gender Information Value Date Recorded Sex Assigned at Female 01/27/2024 5:43 PM CDT Legal Sex Female 11:42 PM CDT Gender Identity Female 01/27/2024 5:43 PM CDT Sexual Orientation Not on file Last Filed Vital Signs Vital Sign Reading Time Taken Comments Blood Pressure 144/84 10/11/2024 4:30 PM CDT Pulse 71 10/11/2024 5:59 PM CDT Temperature 37.1 C (98.8 F) 10/11/2024 4:08 PM CDT Respiratory Rate 17 10/11/2024 4:08 PM CDT Oxygen Saturation 97% 10/11/2024 5:59 PM CDT Inhaled Oxygen Concentration - - Weight 108.9 kg (240 lb) 10/11/2024 4:08 PM CDT Height 190.5 cm (6' 3 ) 10/11/2024 4:08 PM CDT Body Mass Index 30 10/11/2024 4:08 PM CDT Plan of Treatment Upcoming Encounters Date Type Department Care Team (Late st Contact Info) Description 10/13/2024 2:00 PM CDT Appointment [facility] MRI [address] [place] [address] Jn Polo, PAC [address] [place] [address] Discharge Disposition: Discharged to home or Selfcare Health Maintenance Due Date Last Done Comments Hepatitis B Immunization (1 of 3 - 19+ 3-dose series) 1997 Pneumococcal Immunization Combined (1 of 2 - PCV) 1997 Influenza Immunization (#1) 2024 SARS-COV-2 Immunization (1 - season) 2024 Mammogram 10/30/2024 10/31/2023, 10/31/2023 Immunochemical Fecal Occult Blood 2028 03/12/2024 Colonoscopy 08/13/2032 08/13/2022 Colorectal Cancer Screening 08/13/2032 Td Immunization Every 10 Yea rs (Adults With 1 Tdap) 02/04/2034 02/05/2024, 03/27/2021 Respiratory Syncytial Virus (RSV) Immunization (Adult) (1 - 1-dose 75+ series) 2053 08/13/2022 Hepatitis C Virus (HCV) Screening Completed 05/07/2013 Discussion re Starting/Frequency of Mammograms Completed 10/31/2023 DTaP/Tdap/Td Immunization Discontinued 2023, 03/27/2021 Meningococcal Immunization (ACWY) Aged Out No longer eligible based on patient's age to complete this topic Rotavirus Immunization Aged Out No lo nger eligible based on patient's age to complete this topic Procedures Procedure Name Priority Date/Time Associated Diagnosis Comments CBC WITH AUTO DIFFERENTIAL STAT 10/11/2024 4:51 PM CDT URINALYSIS REFLEX IF INDICATED BY ABNORMAL RESULTS STAT 10/11/2024 4:51 PM CDT LIPASE STAT 10/11/2024 4:51 PM CDT CMP (COMPREHENSIVE METABOLIC PANEL) STAT 10/11/2024 4:51 PM CDT COMPLETE BLOOD COUNT (CBC) WITH DIFF STAT 10/11/2024 4:51 PM CDT POCT URINE HCG () STAT 10/11/2024 4:[address] ABDOMEN PELVIS W/O CONTRAST Stat with Interpretation 10/09/2024 5:50 PM AUTO WHEEL ALIGNMENT SPECIALIST PROTIME (PT) (PROTHROMBIN TIME) STAT 10/09/2024 5:13 PM AUTO WHEEL ALIGNMENT SPECIALIST CBC WITH AUTO DIFFERENTIAL STAT 10/09/2024 2:26 PM AUTO WHEEL ALIGNMENT SPECIALIST MAGNESIUM (MG) STAT 10/09/2024 2:26 PM AUTO WHEEL ALIGNMENT SPECIALIST LIPASE STAT 10/09/2024 2:26 PM AUTO WHEEL ALIGNMENT SPECIALIST CMP (COMPREHENSIVE METABOLIC PANEL) STAT 10/09/2024 2:26 PM AUTO WHEEL ALIGNMENT SPECIALIST COMPLETE BLOOD COUNT (CBC) WITH DIFF STAT 10/09/2024 2:26 PM AUTO WHEEL ALIGNMENT SPECIALIST URINALYSIS REFLEX IF INDICATED BY ABNORMAL RESULTS STAT 10/09/2024 2:09 PM AUTO WHEEL ALIGNMENT SPECIALIST AEROSOL NEBULIZER-INITIAL STAT 07/20/2024 8:11 PM AUTO WHEEL ALIGNMENT SPECIALIST XR CHEST SINGLE VIEW PORTABLE STAT 07/20/2024 8:08 PM AUTO WHEEL ALIGNMENT SPECIALIST RSV,SARS-COV-2,INF LUENZA A&B BY PCR STAT 07/20/2024 8:02 PM AUTO WHEEL ALIGNMENT SPECIALIST GOLD TOP TUBE STAT 07/20/2024 8:00 PM AUTO WHEEL ALIGNMENT SPECIALIST BLUE TOP TUBE STAT 07/20/2024 8:00 PM AUTO WHEEL ALIGNMENT SPECIALIST CBC WITH AUTO DIFFERENTIAL STAT 07/20/2024 8:00 PM AUTO WHEEL ALIGNMENT SPECIALIST EXTRA TUBES STAT 07/20/2024 8:00 PM AUTO WHEEL ALIGNMENT SPECIALIST TROPONIN I, HIGH SENSITIVITY (HSTRP) STAT 07/20/2024 8:00 PM AUTO WHEEL ALIGNMENT SPECIALIST MAGNESIUM (MG) STAT 07/20/2024 8:00 PM AUTO WHEEL ALIGNMENT SPECIALIST COMPLETE BLOOD COUNT (CBC) WITH DIFF STAT 07/20/2024 8:00 PM AUTO WHEEL ALIGNMENT SPECIALIST CMP (COMPREHENSIVE METABOLIC PANEL) STAT 07/20/2024 8:00 PM AUTO WHEEL ALIGNMENT SPECIALIST B-TYPE NATRIURETIC PEPTIDE (BNP) STAT 07/20/2024 8:00 PM AUTO WHEEL ALIGNMENT SPECIALIST EKG 12 LEAD STAT 07/20/2024 7:13 PM AUTO WHEEL ALIGNMENT SPECIALIST EKG SCAN 07/20/2024 12:00 AM AUTO WHEEL ALIGNMENT SPECIALIST STOOL, OCCULT BLOOD, DIAGNOSTIC, VIA GUAIAC STAT 03/12/2024 5:19 PM CDT from Last 3 Months or Most Recently Relevant to Health Maintenance Results * (ABNORMAL) URINALYSIS REFLEX IF INDICATED BY ABNORMAL RESULTS (10/11/2024 4:51 PM CDT) Only the most recent of2 resultswithin the time period is included. SPECIFIC GRAVITY 1.020 1.003 - 1.030 10/11/2024 5:47 PM CDT [facility] URINE PH 6.0 5.0 - 9.0 10/11/2024 5:47 PM CDT [facility] WBC ESTERASE Negative Negative 10/11/2024 5:47 PM CDT [facility] NITRITE Negative Negative 10/11/2024 5:47 PM CDT [facility] PROTEIN, RANDOM URINE 30 mg/dL(A) Negative 10/11/2024 5:47 PM CDT [facility] URINE GLUCOSE, QUAL Negative Negative 10/11/2024 5:47 PM CDT [facility] URINE KETONES Negative Negative 10/11/2024 5:47 PM CDT [facility] UROBILINOGEN 1 mg/dL(A) Normal mg/dL 10/11/2024 5:47 PM CDT [facility] URINE BLOOD Negative Negative caitlin/ul 10/11/2024 5:47 PM CDT [facility] URINALYSIS COLOR Yellow 10/12/19 5:47 PM CDT [facility] URINALYSIS CLARITY Slightly Cloudy 10/11/2024 5:47 PM CDT [facility] WBC (Urine) 0-5 Negative, 0-5 /hpf 10/11/2024 5:47 PM CDT [facility] URINE RBC'S Negative Negative, 0-2 /hpf 10/11/2024 5:47 PM CDT [facility] EPITHELIAL CELLS Large amount squamous /lpf 10/11/2024 5:47 PM CDT [facility] BACTERIA, URINE Many(A) Negative /hpf 10/11/2024 5:47 PM CDT [facility] Urine URINE SPECIMEN OBTAINED BY CLEAN CATCH PROCEDURE / Unknown Non-Phlebotomy Collection / Unknown 10/11/2024 4:51 PM CDT 10/11/2024 5:02 PM CDT Arielle Galdamez MD URINE ORDERABLES Final Result [facility] [address] [place] [address] * (ABNORMAL) CBC with Auto Differential (10/11/2024 4:51 PM CDT) Only the most recent of3 resultswithin the time period is included. WBC 6.67 4.00 - 12.00 10(3)/mcL 10/11/2024 5:50 PM CDT [facility] RBC 4.53 3.80 - 5.30 10(6)/mcL 10/11/2024 5:50 PM CDT [facility] HEMOGLOBIN (HGB) 11.0(L) 12.0 - 15.8 g/dL 10/11/2024 5:50 PM CDT [facility] HEMATOCRIT (HCT) 35.3(L) 36.0 - 47.0 % 10/11/2024 5:50 PM CDT [facility] MCV 77.9(L) 82.0 - 96.0 fL 10/11/2024 5:50 PM CDT [facility] MCH 24.3(L) 26.0 - 34.0 pg 10/11/2024 5:50 PM CDT [facility] MCHC 31.2 31.0 - 36.0 g/dL 10/11/2024 5:50 PM CDT [facility] PLATELET COUNT 270 140 - 440 10(3)/mcL 10/11/2024 5:50 PM CDT [facility] RDW 19.5(H) 11.8 - 15.5 % 10/11/2024 5:50 PM CDT [facility] MPV 10.6 9.7 - 12.4 fL 10/11/2024 5:50 PM CDT [facility] NEUTROPHILS 62.8 47.0 - 73.0 % 10/11/2024 5:50 PM CDT [facility] LYMPHOCYTES 24.1 18.0 - 42.0 % 10/11/2024 5:50 PM CDT [facility] MONOCYTES 8.7 4.0 - 12.0 % 10/11/2024 5:50 PM CDT [facility] EOSINOPHILS 4.0 0.0 - 5.0 % 10/11/2024 5:50 PM CDT [facility] BASOPHILS 0.4 0.0 - 1.0 % 10/11/2024 5:50 PM CDT [facility] ABSOLUTE NEUTROPHILS 4.18 1.60 - 7.70 10(3)/mcL 10/11/2024 5:50 PM CDT [facility] ABSOLUTE LYMPHOCYTES 1.61 1.30 - 3.20 10(3)/mcL 10/11/2024 5:50 PM CDT [facility] ABSOLUTE MONOCYTES 0.58 0.20 - 1.00 10(3)/mcL 10/11/2024 5:50 PM CDT [facility] ABSOLUTE EOSINOPHIL 0.27 0.00 - 0.40 10(3)/mcL 10/11/2024 5:50 PM CDT [facility] ABSOLUTE BASOPHILS 0.03 0.00 - 0.10 10(3)/mcL 10/11/2024 5:50 PM CDT [facility] NRBC PER 100 WBC 0 10/12/19 5:50 PM CDT [facility] RESULTS ARE CONSISTENT WITH PERIPHERAL SMEAR REVIEW Yes 10/11/2024 5:50 PM CDT [facility] RBC MORPHOLOGY CONSISTENT WITH INDICES Yes 10/11/2024 5:50 PM CDT [facility] POIKILOCYTOSIS 1+ 10/11/2024 5:50 PM CDT [facility] OVALOCYTES Present 10/11/2024 5:50 PM CDT [facility] POLYCHROMASIA 1+ 10/11/2024 5:50 PM CDT [facility] Blood Venipuncture / Unknown 10/11/2024 4:51 PM CDT 10/11/2024 5:02 PM CDT us Arielle Galdamez MD HEMATOLOGY ORDERABLES Final R esult [facility] [address] [place] [address] * Lipase [id number] (10/11/2024 4:51 PM CDT) Only the most recent of2 resultswithin the time period is included. LIPASE 19 8 - 78 U/L 10/11/2024 5:47 PM CDT [facility] Blood Venipuncture / Unknown 10/11/2024 4:51 PM CDT 10/11/2024 5:02 PM CDT Arielle Galdamez MD CHEMISTRY ORDERABLES Final Re sult [facility] [address] [place] [address] * (ABNORMAL) Comprehensive Metabolic Panel (Cmp) [id number] (10/11/2024 4:51 PM CDT) Only the most recent of3 resultswithin the time period is included. SODIUM 141 136 - 145 mmol/L 10/11/2024 5:47 PM CDT [facility] POTASSIUM 4.7 3.5 - 5.1 mmol/L 10/11/2024 5:47 PM CDT [facility] CHLORIDE 110(H) 98 - 107 mmol/L 10/11/2024 5:47 PM CDT [facility] CO2, VENOUS 19(L) 22 - 30 mmol/L 10/11/2024 5:47 PM CDT [facility] ANION GAP 16.7 <18.0 mmol/L 10/11/2024 5:47 PM CDT [facility] GLUCOSE 88 70 - 99 mg/dL 10/11/2024 5:47 PM CDT [facility] BUN 13 5 - 18 mg/dL 10/11/2024 5:47 PM CDT [facility] CREATININE, BLOOD 0.69 0.60 - 1.00 mg/dL 10/11/2024 5:47 PM CDT [facility] BUN/CREATININE RATIO 19 12 - 20 ratio 10/11/2024 5:47 PM CDT [facility] TOTAL PROTEIN 6.9 6.0 - 8.0 g/dL 10/11/2024 5:47 PM CDT [facility] ALBUMIN 4.0 3.5 - 5.0 g/dL 10/11/2024 5:47 PM CDT [facility] A/G RATIO 1.4 1.0 - 2.2 10/11/2024 5:47 PM CDT [facility] CALCIUM 9.0 8.7 - 10.5 mg/dL 10/11/2024 5:47 PM CDT [facility] T BILI 0.1(L) 0.2 - 1.2 mg/dL 10/11/2024 5:47 PM CDT [facility] SGOT (AST) 36 <43 U/L 10/11/2024 5:47 PM CDT [facility] Comment: Specimen is hemolyzed. In vitro hemolysis could affect results. Clinical correlation advised. SGPT (ALT) 22 <56 U/L 10/11/2024 5:47 PM CDT [facility] ALKALINE PHOSPHATASE 97 40 - 150 U/L 10/11/2024 5:47 PM CDT [facility] GFR, ESTIMATED >60 >=60 10/11/2024 5:47 PM CDT [facility] Comment: Creatinine Clearance is the preferred criteria for selecting drug dose adjustments in renally impaired patients. The GFR is provided as additional pertinent clinical information. GFR is reported in mL/min/1.73 sq m. Calculation based on the Chronic Kidney Disease Epidemiology Collaboration (CKD- EPI) equation refit without adjustment for race. GFR, EST. >60 >=60 025 5:47 PM CDT [facility] GFR, EST. NONAFRICAN >60 >=60 10/11/2024 5:47 PM CDT [facility] Blood Venipuncture / Unknown 10/11/2024 4:51 PM CDT 10/11/2024 5:02 PM CDT us Arielle Galdamez MD CHEMISTRY ORDERABLES Final Re sult [facility] [address] [place] [address] * POCT Urine HCG () (10/11/2024 4:20 PM CDT) POC URINE Negative POC URINE CONTROL Manager Forms Pass Urine 10/11/2024 4:20 PM CDT Arielle Galdamez MD POINT OF CARE TESTING (MANUAL ) Final Result * CT ABDOMEN PELVIS W/O CONTRAST (10/09/2024 5:50 PM AUTO WHEEL ALIGNMENT SPECIALIST) Anatomical Region Laterality Modality Abdomen N/A Computed Tomogra phy 10/09/2024 6:22 PM AUTO WHEEL ALIGNMENT SPECIALIST Impressions 10/09/2024 6:24 PM AUTO WHEEL ALIGNMENT SPECIALIST IMPRESSION: No bowel inflammation or other cause for hematemesis identified. Narrative 10/09/2024 6:24 PM AUTO WHEEL ALIGNMENT SPECIALIST EXAM DESCRIPTION: CT ABDOMEN PELVIS W/O CONTRAST REASON FOR STUDY: Blood in vomit that began on Saturday. Hx of janell-en-Y gastric bypass, uterine CA, CAD, HTN, CHF, DVT, and DM TECHNIQUE: CT scan of the abdomen and pelvis performed without intravenous and without oral contrast using helical scanning technique. Reconstructed coronal and sagittal MPR images reviewed. All images stored on PACS. Automated exposure control was used as a dose optimization technique for this examination. COMPARISON: 06/13/2024 FINDINGS: LOWER CHEST: Lung bases clear. Heart size normal. Coronary artery calcification. LIVER/BILIARY: Liver unremarkable. Biliary tree normal in caliber. GALLBLADDER: Normal. SPLEEN: Normal. PANCREAS: Normal. ADRENAL GLANDS: Normal. KIDNEYS/URINARY TRACT: Unremarkable. GI: Gastric staple line unchanged. Small bowel appears normal. Noninflamed colonic diverticula. Normal appendix. OTHER ABDOMINAL/PELVIS: Major vascular structures are normal in caliber. No enlarged lymph node or free fluid. MSK: Advanced L5-S1 disc disease and moderate multilevel disc disease and facet arthropathy. Old Schmorl's nodes at L2 and L3. BODY WALL: Unremarkable. THIS IS AN ELECTRONICALLY VERIFIED FINAL REPORT 10/09/2024 6:22 PM - Electronically signed by Santi Castrejon M.D. AR: CYN Report ID: [id number] Reading Location: [id number] Procedure Note Santi Castrejon MD - 10/09/2024 EXAM DESCRIPTION: CT ABDOMEN PELVIS W/O CONTRAST REASON FOR STUDY: Blood in vomit that began on Saturday. Hx of janell-en-Y gastric bypass, uterine CA, CAD, HTN, CHF, DVT, and DM TECHNIQUE: CT scan of the abdomen and pelvis performed without intravenous and without oral contrast using helical scanning technique. Reconstructed coronal and sagittal MPR images reviewed. All images stored on PACS. Automated exposure control was used as a dose optimization technique for this examination. COMPARISON: 06/13/2024 FINDINGS: LOWER CHEST: Lung bases clear. Heart size normal. Coronary artery calcification. LIVER/BILIARY: Liver unremarkable. Biliary tree normal in caliber. GALLBLADDER: Normal. SPLEEN: Normal. PANCREAS: Normal. ADRENAL GLANDS: Normal. KIDNEYS/URINARY TRACT: Unremarkable. GI: Gastric staple line unchanged. Small bowel appears normal. Noninflamed colonic diverticula. Normal appendix. OTHER ABDOMINAL/PELVIS: Major vascular structures are normal in caliber. No enlarged lymph node or free fluid. MSK: Advanced L5-S1 disc disease and moderate multilevel disc disease and facet arthropathy. Old Schmorl's nodes at L2 and L3. BODY WALL: Unremarkable. THIS IS AN ELECTRONICALLY VERIFIED FINAL REPORT 10/09/2024 6:22 PM - Electronically signed by Santi Castrejon M.D. AR: CYN Report ID: [id number] Reading Location: [id number] IMPRESSION: No bowel inflammation or other cause for hematemesis identified. Maame Ayala MD IMG CT ORDERABLES Final Result * PT / INR (10/09/2024 5:13 PM AUTO WHEEL ALIGNMENT SPECIALIST) PROTIME-PATIENT 12.5 11.6 - 14.8 sec 10/09/2024 6:00 PM AUTO WHEEL ALIGNMENT SPECIALIST [email or web address] INR 0.9 0.9 - 1.2 10/09/2024 6:00 PM AUTO WHEEL ALIGNMENT SPECIALIST [facility] [[email or web address] LAB Comment: Therapeutic Ranges INR = 2.0-3.0: Venous thromb, atrial fib, pul embolism, tissue heart valve, ami. INR = 2.5-3.5: Mechanical heart valve Critical value for INR is >/= 4.5 Blood Venipuncture / Unknown 10/09/2024 5:13 PM AUTO WHEEL ALIGNMENT SPECIALIST 10/09/2024 5:45 PM AUTO WHEEL ALIGNMENT SPECIALIST Maame Ayala MD HEMATOLOGY ORDERABLES Fi nal Result Performing Organization Address City/[facility]/ZIP Co de Phone Number [facility] [address] [place] [address] * Magnesium (10/09/2024 2:26 PM AUTO WHEEL ALIGNMENT SPECIALIST) Only the most recent of2 resultswithin the time period is included. MAGNESIUM 2.2 1.6 - 2.6 mg/dL 10/09/2024 5:04 PM AUTO WHEEL ALIGNMENT SPECIALIST [facility] Blood Venipuncture / Unknown 10/09/2024 2:26 PM AUTO WHEEL ALIGNMENT SPECIALIST 10/09/2024 2:35 PM AUTO WHEEL ALIGNMENT SPECIALIST Maame Ayala MD CHEMISTRY ORDERABLES Fin al Result Performing Organization Address City/[facility] Co de Phone Number [facility] [place] [address] * XR CHEST SINGLE VIEW PORTABLE (07/20/2024 8:08 PM AUTO WHEEL ALIGNMENT SPECIALIST) Anatomical Region Laterality Modality Chest N/A Digital Radiogra phy 07/20/2024 8:13 PM AUTO WHEEL ALIGNMENT SPECIALIST Impressions 07/20/2024 8:15 PM AUTO WHEEL ALIGNMENT SPECIALIST IMPRESSION: No acute abnormality identified. Narrative 07/20/2024 8:15 PM AUTO WHEEL ALIGNMENT SPECIALIST EXAM DESCRIPTION: XR CHEST SINGLE VIEW PORTABLE REASON FOR STUDY: Chest Pain/passed out today TECHNIQUE: Portable upright AP view of the chest. COMPARISON: 09/11/2022 FINDINGS: LUNGS AND PLEURA: No focal opacity, large effusion, or pneumothorax identified. HEART/MEDIASTINUM: Trachea midline. Cardiac silhouette normal in size. Mediastinal contours appear normal. BONES: Unremarkable. CHEST WALL: Unremarkable. UPPER ABDOMEN: Unremarkable. THIS IS AN ELECTRONICALLY VERIFIED FINAL REPORT 07/20/2024 8:13 PM - Electronically signed by Santi Castrejon M.D. AR: CYN Report ID: [id number] Reading Location: [id number] Procedure Note Santi Castrejon MD - 07/20/2024 EXAM DESCRIPTION: XR CHEST SINGLE VIEW PORTABLE REASON FOR STUDY: Chest Pain/passed out today TECHNIQUE: Portable upright AP view of the chest. COMPARISON: 09/11/2022 FINDINGS: LUNGS AND PLEURA: No focal opacity, large effusion, or pneumothorax identified. HEART/MEDIASTINUM: Trachea midline. Cardiac silhouette normal in size. Mediastinal contours appear normal. BONES: Unremarkable. CHEST WALL: Unremarkable. UPPER ABDOMEN: Unremarkable. THIS IS AN ELECTRONICALLY VERIFIED FINAL REPORT 07/20/2024 8:13 PM - Electronically signed by Santi Castrejon M.D. AR: CYN Report ID: [id number] Reading Location: [id number] IMPRESSION: No acute abnormality identified. Adrian Yap MD IM DIAGNOSTIC ORDERABLES Final Result * RSV,SARS-COV-2,INFLUENZA A&B BY PCR (07/20/2024 8:02 PM AUTO WHEEL ALIGNMENT SPECIALIST) FLU A Negative Negative, Error 07/20/2024 9:02 PM AUTO WHEEL ALIGNMENT SPECIALIST [facility] FLU B Negative Negative 07/20/2024 9:02 PM AUTO WHEEL ALIGNMENT SPECIALIST [facility] RESP SYNC VIRUS Negative Negative 9:02 PM AUTO WHEEL ALIGNMENT SPECIALIST [facility] SARSCOV2 NOT DETECTED (Reference Range for this test is Not Detected) 07/20/2024 9:02 PM AUTO WHEEL ALIGNMENT SPECIALIST [facility] Comment:This test was perfor med by a Reverse Pigment Processor PCR Method. Swab NASOPHARYNGEAL SWAB / Unknown Non-Phlebotomy Collection / Unknown 07/20/2024 8:02 PM AUTO WHEEL ALIGNMENT SPECIALIST 07/20/2024 8:11 PM AUTO WHEEL ALIGNMENT SPECIALIST Narrative [facility] - 07/20/2024 9:02 PM AUTO WHEEL ALIGNMENT SPECIALIST This test has not been FDA cleared or approved; the test has been authorized by FDA under an Emergency Use Authorization (EUA) for use by laboratories certified under the CLIA that meet the requirements to perform moderate, high or waived complexity tests. Authorized Fact Sheets about this test for providers and patients are available at: https://www.fda.gov/medical-devices/jekpnbrxe-tdphjshslz-sqenkfw-devices/emergen -us e-authorizations Result [facility] Adrian Yap MD MICROBIOLOGY - GENERAL OR DERABLES Final Result Performing Organization Address City/[facility] Co de Phone Number [facility] [place] [address] * TROPONIN I, HIGH SENSITIVITY (HSTRP) (07/20/2024 8:00 PM AUTO WHEEL ALIGNMENT SPECIALIST) [facility] TROPONIN I, HIGH SENSITIVITY- XIAO <3 <=14 ng/L 07/20/2024 8:45 PM AUTO WHEEL ALIGNMENT SPECIALIST [facility] Comment: High-sensitivity troponin I results are reported in ng/L making the result appear to be 1,000 times higher than the contemporary troponin I value which is reported in ng/ml. Results from [facility]. Blood Venipuncture / Unknown 07/20/2024 8:00 PM AUTO WHEEL ALIGNMENT SPECIALIST 07/20/2024 8:12 PM AUTO WHEEL ALIGNMENT SPECIALIST Result [facility] Adrian Yap MD CHEMISTRY ORDERABLES Ashly l Result Performing Organization Address [facility] Co de Phone Number [facility] [place] [address] * Gold Top Tube (07/20/2024 8:00 PM AUTO WHEEL ALIGNMENT SPECIALIST) Blood No Phlebotomy Charged / Unknown 07/20/2024 8:00 PM AUTO WHEEL ALIGNMENT SPECIALIST 07/20/2024 8:13 PM AUTO WHEEL ALIGNMENT SPECIALIST Result [facility] Adrian Yap MD CHEMISTRY ORDERABLES Ashly l Result Performing Organization Address City/[facility]/ZIP Co de Phone Number [facility] [place] [address] * Blue Top Tube (07/20/2024 8:00 PM AUTO WHEEL ALIGNMENT SPECIALIST) Blood No Phlebotomy Charged / Unknown 07/20/2024 8:00 PM AUTO WHEEL ALIGNMENT SPECIALIST 07/20/2024 8:13 PM AUTO WHEEL ALIGNMENT SPECIALIST Adrian Yap MD HEMATOLOGY ORDERABLES Fin al Result Performing Organization Address City/[facility]/ZIP Co de Phone Number [facility] [place] [address] * B-Type Natriuretic Peptide (BNP) (07/20/2024 8:00 PM AUTO WHEEL ALIGNMENT SPECIALIST) B TYPE NATRIURETIC PEPTIDE <15 <100 pg/mL 07/20/2024 9:39 PM AUTO WHEEL ALIGNMENT SPECIALIST [facility] Blood Venipuncture / Unknown 07/20/2024 8:00 PM AUTO WHEEL ALIGNMENT SPECIALIST 07/20/2024 8:12 PM AUTO WHEEL ALIGNMENT SPECIALIST Adrian Yap MD CHEMISTRY ORDERABLES Ashly l Result Performing Organization Address [facility] Co de Phone Number [facility] [place] [address] * EKG 12 LEAD (07/20/2024 7:13 PM AUTO WHEEL ALIGNMENT SPECIALIST) Ventricular Rate 72 BPM EXTERNAL EKG Atrial Rate 72 BPM EXTERNAL EKG P-R Interval 160 ms EXTERNAL EKG QRS Duration 86 ms EXTERNAL EKG Q-T Duration 358 ms EXTERNAL EKG QTC CALCULATION 392 ms EXTERNAL EKG P [place] 13 degrees EXTERNAL EKG R [place] 19 degrees EXTERNAL EKG T [place] 42 degrees EXTERNAL EKG 07/20/2024 7:13 PM AUTO WHEEL ALIGNMENT SPECIALIST Impressions EXTERNAL EKG - 07/22/2024 2:59 PM AUTO WHEEL ALIGNMENT SPECIALIST Normal sinus rhythm Normal ECG When compared with ECG of 06-AUG-2023 20:11, No significant change was found Confirmed by Joel Long ([id number]) on 07/22/2024 2:59:01 PM Narrative Procedure Note Joel Long MD - 07/22/2024 IMPRESSION: Normal sinus rhythm Normal ECG When compared with ECG of 06-AUG-2023 20:11, No significant change was found Confirmed by Joel Long ([id number]) on 07/22/2024 2:59:01 PM us Adrian Yap MD IMG ECG ORDERABLES Final Result Performing Organization Address City/[facility]/ZIP Co de Phone Number EXTERNAL EKG * EKG SCAN (07/20/2024 12:00 AM AUTO WHEEL ALIGNMENT SPECIALIST) 07/20/2024 us Provider Scan IMG ECG ORDERABLES Final Result Performing Organization Address [facility] Co de Phone Number RESULTING AGENCY * Stool, Occult Blood, Diagnostic (03/12/2024 5:19 PM CDT) OCCULT BLOOD DIAG, GI BLEED Negative Negative 03/12/2024 5:54 PM CDT [facility] [[email or web address] Stool STOOL SPECIMEN / Unknown Non-Phlebotomy Collection / Unknown 03/12/2024 5:19 PM CDT 03/12/2024 5:37 PM CDT Jhoana Carrion APRN, INFORMATION TECHNOLOGY SECURITY ANALYST BODY FLUIDS & STOOLS ORDERABLES Final Result Performing Organization Address [facility] Co de Phone Number [facility] [address] [place] [address] from Last 3 Months or Most Recently Relevant to Health Maintenance Insurance MEDICAID [place] MED[place]ID [employer] MEDICAID [place] Advance Directives * Full Code (Latest Code Status on File) Date Activated Date Inactivated Comments 09/17/2022 3:02 AM 09/17/2022 12:05 PM CPR-Full Tr eatment: FULL ARREST: Attempt Resuscitation/CPR wit intubation and mechanical ventilation. PRE-ARREST: Use entire range of life support measures to stabilize the patient. Care Teams Bench Assembler Relationship Specialty Start Date End Date Eli Abbott MD [address] [place] [address] PCP - General Family Medicine 09/03/24 Jn Polo [facility] [address] [place] [address] Physician Machine Welt Butter Physician Machine Welt Butter 07/13/24
--- OUTSIDE RECORDS SUMMARY | 2024-10-13 01:27 | XMS_ITS | Referral Summary ---
Author Organization [facility] Address [address] [place] [address] Care Team Providers Care Infusion Rn Name Role Phone Ally Chambers RN Unavailable [phone] Brett Chávez MD Primary Care Provider [phone] Source Comments [facility],non-owned Affiliates and Associated Physician Practices is amultiple site organization consisting of ambulatory clinics and hospital sitesin [place], [place], [place] and [place]. This disclosure is being madepursuant to the Care Everywhere program and may not contain all information available regarding this patient. Last updated 18.[facility] Encounters Date Type Department Care Team Description 10/08/2024 5:40 PM PLANNING TECHNICIAN - 10/09/2024 5:57 AM PLANNING TECHNICIAN Hospital Encounter [facility] [address] [place] [phone] Bronson Shaw MD Mayer, Joshua C, DO Hematemesis with nausea (Primary Dx); History of Janell-en-Y gastric bypass; History of peptic ulcer disease; Upper GI bleed Discharge Disposition: Left Against Medical Advice/Discontinued Care 10/08/2024 Travel 09/19/2024 Travel 09/19/2024 7:35 PM PLANNING TECHNICIAN - 09/19/2024 8:23 PM PLANNING TECHNICIAN Emergency [facility] [address] [place] [phone] Christiano Otto MD Left hip pain; Fall, initial encounter; Musculoskeletal pain Discharge Disposition: Home or Self Care 09/14/2024 Travel 09/14/2024 11:30 AM PLANNING TECHNICIAN Office Visit [facility] - Neurosurgery [facility] [place] [phone] Fahad Monzon MD Chronic bilateral low back pain with sciatica, sciatica laterality unspecified (Primary Dx) from Last 3 Months Allergies Active Allergy Reactions Criticality Noted Date Comments Acetaminophen GI Discomfort Medium 12/11/2023 Povidone Iodine Urticaria Medium 12/12/2023 Contrast-Iodinated Agents For Ct/Other Rash,Itching Medium 12/11/2023 Fentanyl Anaphylaxis,Itching, Shortness of Breath,Swelling High 03/21/2013 Reaction: rash, , , Other reaction(s): Unknown Reaction: rash, , , Morphine Urticaria Medium 12/12/2023 Shellfish Allergy Urticaria Medium 12/12/2023 Sulfa Antibiotics Urticaria Medium 12/11/2023 Tramadol Seizures High 12/12/2023 Medications * Be aware that medications may not be up to date on this document. Alwaysverify current medications with the patient. Medication Sig Dispensed Refills Start Date End Date Status albuterol HFA (PROVENTIL;SHANNON PALLAVI;PROAIR) 108 (90 BASE) MCG/ACT inhaler Inhale 2 (two) puffs by mouth every 6 hours as needed for Shortness of Breath or Wheezing Active cyclobenzaprine (FLEXERIL) 10 MG tablet Take 1 Tab by mouth 3 times daily 30 Tab 09/14/2016 Active carBAMazepine ER 12hr (Carbatrol) 200 MG capsuleIndicatio ns:Seizure Take 1 (one) capsule by mouth every 12 hours for 30 days Reasons: Seizure 60 capsule 12/26/2023 Active lisinopril (Prinivil; Zestril) 10 MG tablet Take 0.5 (one-half) tablet by mouth once daily Active omeprazole (PriLOSEC) 20 MG capsuleIndicatio ns:H. pylori infection Take 1 (one) capsule by mouth 2 times daily for 14 days 28 capsule 02/22/2024 Active midazolam (Nayzilam) 5 MG/0.1ML nasal spray [place] 0.1 mL into the nose as needed for Seizures (Only if seizure occurres) 03/05/2024 Active vitamin D, ergocalciferol, (Drisdol) 1.25 MG (97309 UT) capsule Take 1 (one) capsule by mouth every 30 days 01/17/2024 Active hydrocortisone, rectal, (Anusol-HC) 2.5 % cream APPLY DAILY. APPLY TO RECTUM DIRECTED. 03/13/2024 Active ketorolac (Toradol) 10 MG tablet Take 1 (one) tablet by mouth every 6 hours as needed 04/06/2024 Active metoclopramide (Reglan) 10 MG tablet Take 1 (one) tablet by mouth 04/13/2024 Active carBAMazepine XR 12hr (TEGretol XR) 200 MG tablet TAKE ONE TABLET BY MOUTH EVERY 12 HOURS FOR 30 DAYS 60 tablet 12/26/2023 12/25/2024 Active ondansetron, disintegrating, (Zofran ODT) 4 MG tablet Take 1 (one) tablet by mouth every 6 hours as needed for Nausea/Vomiting Allow tablet to dissolve on the tongue 12 tablet 09/19/2024 Active oxyCODONE, immediate release, (Roxicodone) 5 MG tabletIndication s:Musculoskeleta l pain Take 1 (one) tablet by mouth every 6 hours as needed for Pain 20 tablet 09/19/2024 Active pantoprazole EC (Protonix) 40 MG tablet Take 1 (one) tablet by mouth 2 times daily for 30 days 60 tablet 12/26/2023 02/22/2024 Discontinued (Yes Pharm No AVS) ondansetron, disintegrating, (Zofran ODT) 4 MG tablet Take 1 (one) tablet by mouth every 6 hours as needed for Nausea/Vomiting (As needed) 03/01/2024 09/19/2024 Discontinued (List Clean-Up) Active Problems Problem Noted Date Diagnosed Date Upper GI bleed 10/08/2024 History of peptic ulcer disease 10/08/2024 Postoperative infection, uns pecified type, initial encounter 01/28/2024 Hematemesis, unspecified whether nausea present 01/01/2024 H/O laminectomy 12/31/2023 History of Janell-en-Y gastric bypass 12/31/2023 Melena 12/24/2023 Normocytic anemia 12/24/2023 Hematemesis with nausea 12/24/2023 PICC (peripherally inserted central catheter) [facility] 12/16/2023 Lumbar pain 12/12/2023 Abscess after procedure 12/12/2023 Seizures Anxiety Social History Tobacco Use Types Packs/Day Years Used Date Smoking Tobacco: Every Day Cigarettes 0.5 30 Smokeless Tobacco: Never Tobacco Cessation:Ready to Q uit: No; Counseling Given: Yes Alcohol Use Standard Drinks/Week Comments Never 0 (1 standard drink = 0.6 oz pur e alcohol) AUDIT-C Answer Date Recorded Q1: How often do you have a drink containing alcohol? Never 10/08/2024 Q2: How many drinks containi ng alcohol do you have on a typical day when you are drinking? Patient does not drink Q3: How often do you have si x or more drinks on one occasion? Never 10/08/2024 Overall Financial Resource Strain (CARDIA) Answe r Date Recorded How hard is it for you to pa y for the very basics like food, housing, medical care, and heating? Patient declined 12/13/2023 PHQ-2 Answer Date Recorded Patient Health Questionnaire-2 Score 0 04/27/2024 [facility] - Occupational [...] place to sleep or slept in a intermediate (including now)? Patient declined 12/13/2023 Sex and Gender Information Value Date Recorded Sex Assigned at Not on file Gender Identity Not on file Sexual Orientation Not on file Last Filed Vital Signs Vital Sign Reading Time Taken Comments Blood Pressure 103/63 10/09/2024 5:00 AM PLANNING TECHNICIAN Pulse 62 10/09/2024 5:00 AM PLANNING TECHNICIAN Temperature 36 C (96.8 F) 10/08/2024 2:39 PM PLANNING TECHNICIAN Respiratory Rate 18 10/09/2024 5:00 AM PLANNING TECHNICIAN Oxygen Saturation 93% 10/09/2024 5:00 AM PLANNING TECHNICIAN Inhaled Oxygen Concentration - - Weight 108.9 kg (240 lb) 10/08/2024 2:39 PM PLANNING TECHNICIAN Height 190.5 cm (6' 3 ) 10/08/2024 2:39 PM PLANNING TECHNICIAN Body Mass Index 30 10/08/2024 2:39 PM PLANNING TECHNICIAN Functional Status Functional Status Response Date of [...] person have difficulty concentrating/remembering/making decisions? No 12/13/2023 Plan of Treatment Upcoming Encounters Date Type Department Care Team (Late st Contact Info) Description 10/21/2024 2:00 PM CDT Office Visit [facility] - Neurology [address] [place] [address], [place] [address] Charanjit Jackson MD [address] [place] [address] [place] [phone] Procedures Procedure Name Priority Date/Time Associated Diagnosis Comments CARDIAC EKG ORDER 10/12/2024 1:0 3 PM CDT CBC W AUTO DIFFERENTIAL STAT 10/09/2024 2:19 AM PLANNING TECHNICIAN MAGNESIUM BLOOD STAT 10/09/2024 2:19 AM PLANNING TECHNICIAN PHOSPHORUS BLOOD STAT 10/09/2024 2:19 AM PLANNING TECHNICIAN BASIC METABOLIC PANEL (CALCIUM TOTAL) STAT 10/09/2024 2:[address] NECK SOFT TISSUE W CONT STAT 10/08/2024 7:44 PM PLANNING TECHNICIAN Hematemesis with nausea CT CHEST ABDOMEN PELVIS W CONT STAT 10/08/2024 7:44 PM PLANNING TECHNICIAN Hematemesis with nausea HGB HCT PANEL STAT 10/08/2024 7:10 PM PLANNING TECHNICIAN SARS-COV-2 (COVID-19)+INFLU A+B PCR RAPID STAT 10/08/2024 7:09 PM PLANNING TECHNICIAN TYPE + SCREEN PANEL STAT 10/08/2024 3 :25 PM PLANNING TECHNICIAN PT-INR [facility] STAT 10/08/2024 3:25 PM PLANNING TECHNICIAN COMPREHENSIVE METABOLIC PANEL STAT 10/08/2024 3:25 PM PLANNING TECHNICIAN CBC W AUTO DIFFERENTIAL STAT 10/08/2024 3:25 PM PLANNING TECHNICIAN XR KNEE RIGHT 3VW STAT 09/19/2024 7:4 8 PM PLANNING TECHNICIAN Left hip pain XR PELVIS W LEFT HIP 2VW STAT 09/19/2024 7:47 PM PLANNING TECHNICIAN Left hip pain CT CERVICAL SPINE WO CONTRAST STAT 09/19/2024 7:32 PM PLANNING TECHNICIAN Fall, initial encounter CT THORACIC SPINE WO CONTRAST STAT 09/19/2024 7:32 PM PLANNING TECHNICIAN Fall, initial encounter CT LUMBAR SPINE WO CONTRAST STAT 09/19/2024 7:32 PM PLANNING TECHNICIAN Fall, initial encounter HELICOBACTER PYLORI ANTIGEN FECES Routine 09/02/2024 12:30 PM PLANNING TECHNICIAN H. pylori infection HEPATITIS SCREEN ACUTE Routine 3 5:15 AM CDT from Last 3 Months or Most Recently Relevant to Health Maintenance Results * CARDIAC EKG ORDER (10/12/2024 1:03 PM CDT) Narrative 10/12/2024 1:03 PM CDT Ordered by an unspecified provider. Scanned Document CARDIAC SERVICES ORD ERABLES * (ABNORMAL) CBC W AUTO DIFFERENTIAL (10/09/2024 2:19 AM PLANNING TECHNICIAN) Only the most recent of2 resultswithin the time period is included. WBC 5.3 4.0 - 10.7 x10E9/L 10/09/2024 2:32 AM [facility] RBC Count 4.21 3.90 - 5.20 x10E12/L 10/09/2024 2:32 AM [facility] Hemoglobin 10.0(L) 11.9 - 15.8 g/dL 10/09/2024 2:32 AM [facility] Hematocrit 32.2(L) 34.8 - 46.1 % 10/09/2024 2:32 AM [facility] MCV 76.5(L) 80.0 - 98.0 fL 10/09/2024 2:32 AM [facility] MCH 23.8(L) 26.7 - 33.6 pg 10/09/2024 2:32 AM [facility] MCHC 31.1(L) 31.7 - 36.3 g/dL 10/09/2024 2:32 AM [facility] RDW-CV 19.6(H) 11.3 - 14.8 % 10/09/2024 2:32 AM [facility] Platelet Count 340 150 - 420 x10E9/L 10/09/2024 2:32 AM [facility] MPV 9.3 7.8 - 11.4 fL 10/09/2024 2:32 AM [facility] Neutrophil % 73.3 41.0 - 74.0 % 10/09/2024 2:32 AM [facility] Lymphocyte % 20.8 17.0 - 47.0 % 10/09/2024 2:32 AM [facility] Monocyte % 4.3 3.0 - 11.0 % 10/09/2024 2:32 AM [facility] Eosinophil % 0.6 0.0 - 7.0 % 10/09/2024 2:32 AM [facility] Basophil % 0.6 0.0 - 1.6 % 10/09/2024 2:32 AM [facility] Immature Granulocytes % 0.4 0.0 - 1.0 % 10/09/2024 2:32 AM [facility] Neutrophil Absolute 3.88 1.60 - 7.50 x10E9/L 10/09/2024 2:32 AM [facility] Lymphocyte Absolute 1.10 1.00 - 4.40 x10E9/L 10/09/2024 2:32 AM [facility] Monocyte Absolute 0.23 0.15 - 1.00 x10E9/L 10/09/2024 2:32 AM [facility] Eosinophil Absolute 0.03 0.00 - 0.60 x10E9/L 10/09/2024 2:32 AM [facility] Basophil Absolute 0.03 0.00 - 0.13 x10E9/L 10/09/2024 2:32 AM [facility] Blood BLOOD SPECIMEN / Unknown Venipuncture / Unknown 10/09/2024 2:19 AM PLANNING TECHNICIAN 10/09/2024 2:23 AM [facility] Nilesh Krause DO LAB - HEMATOLOGY ORD ERABLES [facility] [address] [place] [address], [facility] [phone] * (ABNORMAL) BASIC METABOLIC PANEL (CALCIUM TOTAL) (10/09/2024 2:19 AM [facility]) BUN 9 7 - 26 mg/dL 10/09/2024 2:48 AM [facility] Creatinine 0.60 0.56 - 0.96 mg/dL 10/09/2024 2:48 AM [facility] Sodium 140 136 - 145 mmol/L 10/09/2024 2:48 AM [facility] Potassium 4.4 3.5 - 4.5 mmol/L 10/09/2024 2:48 AM [facility] Chloride 110(H) 98 - 107 mmol/L 10/09/2024 2:48 AM [facility] CO2 21(L) 22 - 29 mmol/L 10/09/2024 2:48 AM [facility] Glucose 104(H) 70 - 99 mg/dL 10/09/2024 2:48 AM [facility] Calcium 8.4 8.4 - 10.2 mg/dL 10/09/2024 2:48 AM [facility] Anion Gap 9 6 - 16 10/09/2024 2:48 AM [facility] BUN/Creatinine Ratio 15 7 - 23 10/09/2024 2:48 AM [facility] Osmolality Calculated 289 275 - 295 mOsm/kg 10/09/2024 2:48 AM [facility] eGFR by CKD-EPI >90 >=90 mL/min/1.7 3 m2 10/09/2024 2:48 AM [facility] Blood BLOOD SPECIMEN / Unknown Venipuncture / Unknown 10/09/2024 2:19 AM PLANNING TECHNICIAN 10/09/2024 2:23 AM [facility] Nilesh Krause DO LAB - CHEMISTRY GUIE KALEB [facility] [address] [place] [address], [facility] [phone] * PHOSPHORUS BLOOD (10/09/2024 2:19 AM [facility]) Phosphorus 4.4 2.9 - 5.1 mg/dL 10/09/2024 2:48 AM [facility] Blood BLOOD SPECIMEN / Unknown Venipuncture / Unknown 10/09/2024 2:19 AM PLANNING TECHNICIAN 10/09/2024 2:23 AM PLANNING TECHNICIAN Nilesh Krause DO LAB - CHEMISTRY [facility] [address] [address], [place] [phone] * MAGNESIUM BLOOD (10/09/2024 2:19 AM PLANNING TECHNICIAN) Magnesium 1.9 1.6 - 2.6 mg/dL 10/09/2024 2:48 AM PLANNING TECHNICIAN [facility] Blood BLOOD SPECIMEN / Unknown Venipuncture / Unknown 10/09/2024 2:19 AM PLANNING TECHNICIAN 10/09/2024 2:23 AM PLANNING TECHNICIAN Nilesh Krause DO LAB - CHEMISTRY [facility] Performing Organization Address City/[facility]/ZIP Co de Phone Number [address] [address], [place] [phone] * CT Chest Abdomen Pelvis W Cont (10/08/2024 7:44 PM PLANNING TECHNICIAN) Anatomical Region Laterality Modality Chest, Abdomen, Pelvis Computed Tomography 10/08/2024 7:51 PM PLANNING TECHNICIAN Impressions 10/08/2024 10:55 PM PLANNING TECHNICIAN Impression: 1.Postoperative appearance of Janell-en-Y gastric bypass. At the gastrojejunostomy anastomosis site, there are small outpouchings, which is indeterminate but raises question of small diverticulum. Clinical correlation and correlation with prior imaging is recommended. 2.No acute findings in the chest, abdomen or pelvis. Report drafted by Ramesh Mcdaniels (resident) I, Mamie Scales MD have personally reviewed and interpreted this examination/study. > Interpreting Provider: Mamie Scales MD on 10/08/2024 10:55 PM Narrative 10/08/2024 10:55 PM PLANNING TECHNICIAN Procedure Information DATE: 10/08/2024 7:45 PM EXAMINATION: Computed tomography (CT) of the chest, abdomen, and pelvis with contrast TECHNIQUE: CT of the chest, abdomen, and pelvis was performed after the uneventful administration of 100 mL of Isovue 370 intravenous contrast according to standard protocol. Clinical Information HISTORY: R11.14: Bilious vomiting with nausea COMPARISON: CT chest PE dated 04/28/2013 Findings Chest: Lines/Tubes: None. Lower neck and axillae: Normal. Mediastinum and Leatha: No enlarged lymph nodes are present. Heart and Pericardium: The cardiac chambers are normal in size. No pericardial fluid or thickening is present. Coronary artery calcifications are seen. Pulmonary Parenchyma and Airways: Mild bilateral dependent atelectasis. Mild centrilobular and paraseptal emphysematous changes. Pleural Space: No pleural effusion or pneumothorax is present. Abdomen/pelvis: Hepatobiliary: Normal. Pancreas: Normal. Spleen: Normal. Kidneys: Normal. Adrenals: Normal. Retroperitoneum: Normal. Gastrointestinal: Postoperative appearance of gastric bypass surgery. At the gastrojejunostomy anastomosis site, there is a small outpouching (series 6 image 50) that is indeterminant. Otherwise, the excluded lumen, excluded stomach, and janell limb appear unremarkable. No dilated loop of bowel is seen. Mesentery: Normal. Pelvic Structures: Normal. Vasculature: Scattered atherosclerotic vasculature changes. Bones: The visible osseous structures are intact. Soft tissues: Normal. Procedure Note Mamie Scales MD - 10/08/2024 Procedure Information DATE: 10/08/2024 7:45 PM EXAMINATION: Computed tomography (CT) of the chest, abdomen, and pelvis with contrast TECHNIQUE: CT of the chest, abdomen, and pelvis was performed after the uneventful administration of 100 mL of Isovue 370 intravenous contrast according to standard protocol. Clinical Information HISTORY: R11.14: Bilious vomiting with nausea COMPARISON: CT chest PE dated 04/28/2013 Findings Chest: Lines/Tubes: None. Lower neck and axillae: Normal. Mediastinum and Leatha: No enlarged lymph nodes are present. Heart and Pericardium: The cardiac chambers are normal in size. No pericardial fluid orthickening is present. Coronary artery calcifications are seen. Pulmonary Parenchyma and Airways: Mild bilateral dependent atelectasis. Mild centrilobular and paraseptal emphysematous changes. Pleural Space: No pleural effusion or pneumothorax is present. Abdomen/pelvis: Hepatobiliary: Normal. Pancreas: Normal. Spleen: Normal. Kidneys: Normal. Adrenals: Normal. Retroperitoneum: Normal. Gastrointestinal: Postoperative appearance of gastric bypass surgery. At the gastrojejunostomy anastomosis site, there is a small outpouching (series 6 image 50) that is indeterminant. Otherwise, the excludedlumen, excluded stomach, and janell limb appear unremarkable. No dilated loop of bowel is seen. Mesentery: Normal. Pelvic Structures: Normal. Vasculature: Scattered atherosclerotic vasculature changes. Bones: The visible osseous structures are intact. Soft tissues: Normal. Impression: 1.Postoperative appearance of Janell-en-Y gastric bypass. At the gastrojejunostomy anastomosis site, there are small outpouchings, whichis indeterminate but raises question of small diverticulum. Clinical correlation and correlation with prior imaging is recommended. 2.No acute findings in the chest, abdomen or pelvis. Report drafted by Ramesh Mcdaniels (resident) Mamie Sewell MD have personally reviewed and interpreted this examination/study. > Interpreting Provider: Mamie Scales MD on 510:55 PM Bronson Shaw MD CT ORDERABLES * CT Neck Soft Tissue W Cont (10/08/2024 7:44 PM PLANNING TECHNICIAN) Anatomical Region Laterality Modality Head Computed Tomogra phy 10/08/2024 8:01 PM PLANNING TECHNICIAN Impressions 10/08/2024 8:53 PM PLANNING TECHNICIAN IMPRESSION: 1.No evidence of soft tissue swelling, mass or acute pathology in the neck. 2.There is no evidence of abscess, pneumomediastinum or soft tissue air. The report is dictated by Diana Real MD (executive vice president and chief operating officer) Carlos Sewell MD have personally reviewed and interpreted this examination/study. > Interpreting Provider: Carlos Carrera MD on 10/08/2024 8:53 PM Narrative 10/08/2024 8:53 PM PLANNING TECHNICIAN PROCEDURE: CT NECK SOFT TISSUE W CONT, DATE/TIME OF EXAM: 10/08/2024 7:45 PM, LOCATION [facility] INDICATION: R11.14: Bilious vomiting with nausea ADDITIONAL CLINICAL INFORMATION: Ordering Provider Reason For Exam: Esophageal perforation Technologist Note: Additional: EXAMINATION: Computed tomography (CT) of the neck with contrast TECHNIQUE: CT of the neck was performed following the uneventful administration of 75 mL Isovue-370 intravenous contrast according to standard protocol. Only the axial images are available and multiplanar reconstruction was not performed. COMPARISON: Comparison is made with a study from CT for cervical spine dated 09/19/2024 FINDINGS: Multiple small subcentimeter lymph nodes are noted in both sides of the neck with no evidence of cervical lymphadenopathy. The muscles of the neck appear normal. There is atherosclerotic disease involving the carotid bifurcations. The internal jugular veins appear normal. Fascial planes are preserved and the deep spaces of the neck appear normal. The nasopharynx, oropharynx, hypopharynx and larynx appear normal. The visualized airway is patent. The visualized portions of the posterior fossa and brain appear normal. There is mild cervical degenerative disc and joint disease. The visualized orbits and paranasal sinuses appear normal. The thyroid gland is normal. Emphysematous changes in the lung apices. Procedure Note Carlos Carrera MD - 10/08/2024 PROCEDURE: CT NECK SOFT TISSUE W CONT, DATE/TIME OF EXAM: 57:45 PM, LOCATION [facility] INDICATION: R11.14: Bilious vomiting with nausea ADDITIONAL CLINICAL INFORMATION: Ordering Provider Reason For Exam: Esophageal perforation Technologist Note: Additional: EXAMINATION: Computed tomography (CT) of the neck with contrast TECHNIQUE: CT of the neck was performed following the uneventful administration of 75 mL Isovue-370 intravenous contrast according to standard protocol. Only the axial images are available and multiplanar reconstruction was not performed. COMPARISON: Comparison is made with a study from CT for cervical spine dated 09/19/2024 FINDINGS: Multiple small subcentimeter lymph nodes are noted in both sides of the neck with no evidence of cervical lymphadenopathy. The muscles of theneck appear normal. There is atherosclerotic disease involving the carotid bifurcations. The internal jugular veins appear normal. Fascial planesare preserved and the deep spaces of the neck appear normal. Thenasopharynx, oropharynx, hypopharynx and larynx appear normal. The visualized airwayis patent. The visualized portions of the posterior fossa and brain appear normal. There is mild cervical degenerative disc and joint disease. Thevisualized orbits and paranasal sinuses appear normal. The thyroid gland is normal. Emphysematous changes in the lung apices. IMPRESSION: 1.No evidence of soft tissue swelling, mass or acute pathology in theneck. 2.There is no evidence of abscess, pneumomediastinum or soft tissue air. The report is dictated by Diana Real MD (executive vice president and chief operating officer) I, Carlos Carrera MD have personally reviewed and interpreted this examination/study. > Interpreting Provider: Carlos Carrera MD on 10/08/2024 8:53 PM Bronson Shaw MD CT ORDERABLES * (ABNORMAL) HGB HCT PANEL (10/08/2024 7:10 PM PLANNING TECHNICIAN) [facility] Hemoglobin 10.9(L) 11.9 - 15.8 g/dL 10/08/2024 7:21 PM [facility] Hematocrit 35.8 34.8 - 46.1 % 10/08/2024 7:21 PM [facility] Blood BLOOD SPECIMEN / Unknown Venipuncture / Unknown 10/08/2024 7:10 PM PLANNING TECHNICIAN 10/08/2024 7:16 PM PLANNING TECHNICIAN Bronson Shaw MD LAB - HEMATOLOG Y ORDERABLES [facility] [address] [place] [phone], [facility] [phone] * SARS-COV-2 (COVID-19)+INFLU A+B PCR RAPID (10/08/2024 7:09 PM PLANNING TECHNICIAN) Pathologist [facility] COVID-19 PCR Not detected Not detected 10/09/19 7:57 PM PLANNING TECHNICIAN [facility] Influenza A Rapid YULIANA Not Detected Not Detected 10/08/2024 7:57 PM PLANNING TECHNICIAN [facility] Influenza B YUL[place]NA Rapid Not Detected Not Detected 10/08/2024 7:57 PM [facility] Microbiology SPECIMEN FROM NASOPHARYNGEAL STRUCTURE / Unknown Collection / Unknown 10/08/2024 7:09 PM PLANNING TECHNICIAN 10/08/2024 7:14 PM PLANNING TECHNICIAN Narrative [facility] - 10/08/2024 7:57 PM PLANNING TECHNICIAN Influenza assay performed by [employer]. Results do not exclude the possibility of a mixed viral infection. NOTE: Detecting and identifying specific viral nucleic acids from individuals exhibiting signs and symptoms of respiratory infection aids in the diagnosis of respiratory infection, if used in conjunction with other clinical and laboratory findings. The results of this test should not be used as the sole basis for diagnosis, treatment, or patient management decisions. This nucleic acid amplification assay performance was validated by [facility]. This test has been authorized by the Food and Drug administration (FDA)under an Emergency Use Authorization (EUA). This test has been validated in accordance with the FDA's guidance document Policy for Diagnostic Testing in Laboratories Certified to perform High Complexity Testing under CLIA prior to Emergency Use Authorization for Coronavirus Disease-2019 during the Public Health Emergency issued on October 03, 2019. FDA independent review of this validation is pending. This test is only authorized for the duration of time the declaration that circumstances exist justifying the authorization of emergency use of in vitro diagnostic tests for detection of SARS-CoV-2 virus and/or diagnosis of COVID-19 infection under section 564(b)(1) of the Act, 21 U.S.C 360bbb-3 (b)(1), unless the authorization is terminated or revoked sooner. Fact Sheets for this EUA assay are available upon request. Bronson Shaw MD LAB - MICROBIOL OGY ORDERABLES [facility] [address] [place] [phone], [facility] [phone] * (ABNORMAL) PT-INR [facility] (10/08/2024 3:25 PM PLANNING TECHNICIAN) PT 12.0(L) 12.1 - 14.8 Seconds 10/08/2024 3:58 PM PLANNING TECHNICIAN [facility] INR 0.9 See Comment 10/08/2024 3:58 PM PLANNING TECHNICIAN [facility] Comment:The suggested therap eutic range for standard coumadin (warfarin) therapy is an INR of 2.0-3.0. For high-risk patients (Mechanical Mitral Valve Prosthesis, etc.), the suggested prophylactic therapeutic range is an INR of 2.5-3.5. Blood BLOOD SPECIMEN / Unknown Venipuncture / Unknown 10/08/2024 3:25 PM PLANNING TECHNICIAN 10/08/2024 3:33 PM PLANNING TECHNICIAN Zeinab Taylor APRN-TOW MOTOR OPERATOR LAB - COAGUL ATION ORDERABLES [address] [id number], [facility] [phone] * TYPE + SCREEN PANEL (10/08/2024 3:25 PM PLANNING TECHNICIAN) [facility] Antibody Screen NEG 4:24 PM PLANNING TECHNICIAN [facility]OD [facility] LAB ABO Rh O POS 10/08/2024 4:24 PM PLANNING TECHNICIAN [facility]OD [facility] LAB Blood Bank BLOOD SPECIMEN / Unknown Venipuncture / Unknown 10/08/2024 3:25 PM PLANNING TECHNICIAN 10/08/2024 3:40 PM PLANNING TECHNICIAN Zeinab Taylor APRN-TOW MOTOR OPERATOR LAB - BLOOD BANK ORDERABLES Performing Organization Address City/[facility]/ZIP Co de Phone Number [facility] BLOOD [facility] LAB [address] [place] [phone], [facility] [phone] * COMPREHENSIVE METABOLIC PANEL (10/08/2024 3:25 PM PLANNING TECHNICIAN) [facility] BUN 11 7 - 26 mg/dL 10/08/2024 4:02 PM [facility] Creatinine 0.63 0.56 - 0.96 mg/dL 10/08/2024 4:02 PM [facility] Sodium 138 136 - 145 mmol/L 10/08/2024 4:02 PM [facility] Potassium 4.2 3.5 - 4.5 mmol/L 10/08/2024 4:02 PM [facility] Chloride 107 98 - 107 mmol/L 10/08/2024 4:02 PM [facility] CO2 22 22 - 29 mmol/L 10/08/2024 4:02 PM [facility] Glucose 88 70 - 99 mg/dL 10/08/2024 4:02 PM [facility] Calcium 8.9 8.4 - 10.2 mg/dL 10/08/2024 4:02 PM [facility] Protein Total 6.8 6.0 - 8.3 g/dL 10/08/2024 4:02 PM [facility] Albumin 3.9 3.4 - 5.0 g/dL 10/08/2024 4:02 PM [facility] Bilirubin Total 0.2 0.2 - 1.2 mg/dL 10/08/2024 4:02 PM [facility] Alkaline Phosphatase 111 40 - 150 U/L 10/08/2024 4:02 PM [facility] ALT 23 5 - 55 U/L 10/08/2024 4:02 PM [facility] AST 25 5 - 34 U/L 10/08/2024 4:02 PM [facility] Anion Gap 9 6 - 16 10/08/2024 4:02 PM [facility] BUN/Creatinine Ratio 17 7 - 23 10/08/2024 4:02 PM [facility] Osmolality Calculated 285 275 - 295 mOsm/kg 10/08/2024 4:02 PM [facility] Albumin/Globulin Ratio 1.3 1.1 - 2.3 10/08/2024 4:02 PM [facility] eGFR by CKD-EPI >90 >=90 mL/min/1.7 3 m2 10/08/2024 4:02 PM [facility] Blood BLOOD SPECIMEN / Unknown Venipuncture / Unknown 10/08/2024 3:25 PM PLANNING TECHNICIAN 10/08/2024 3:35 PM PLANNING TECHNICIAN Zeinab Taylor RADIO TIME SALES SUPERVISOR-TOW MOTOR OPERATOR LAB - CHEMIS TRY ORDERABLES [facility] [address] [place] [phone], [facility] [phone] * XR Knee Right 3Vw (09/19/2024 7:48 PM PLANNING TECHNICIAN) Anatomical Region Laterality Modality Lower Extremity Digital Radiogra phy 09/19/2024 7:44 PM PLANNING TECHNICIAN Impressions 09/20/2024 8:25 AM PLANNING TECHNICIAN IMPRESSION: No acute fracture or dislocation identified. Report dictated by Brennen Antoine DO (executive vice president and chief operating officer). Lina Sewell MD have personally reviewed and interpreted this examination/study. > Interpreting Provider: Lina Weinberg MD on 09/20/2024 8:25 AM Narrative 09/20/2024 8:25 AM PLANNING TECHNICIAN PROCEDURE: XR KNEE RIGHT 3VW, DATE/TIME OF EXAM: 09/19/2024 7:16 PM, LOCATION [facility] INDICATION: M25.552: Left hip pain ADDITIONAL CLINICAL INFORMATION: Ordering Provider Reason For Exam: r/o effusion, fx Technologist Note: Additional: None. COMPARISON: None. FINDINGS: The osseous structures are intact and well aligned without acute fracture or dislocation. The knee joint space is preserved. A questionable small suprapatellar joint effusion is seen. Chondral calcification, predominantly at the medial aspect of the knee. Procedure Note Lina Weinberg MD - 09/20/2024 PROCEDURE: XR KNEE RIGHT 3VW, DATE/TIME OF EXAM: 09/19/2024 7:16 PM, LOCATION [facility] INDICATION: M25.552: Left hip pain ADDITIONAL CLINICAL INFORMATION: Ordering Provider Reason For Exam: r/o effusion, fx Technologist Note: Additional: None. COMPARISON: None. FINDINGS: The osseous structures are intact and well aligned without acutefracture or dislocation. The knee joint space is preserved. A questionable small suprapatellar joint effusion is seen. Chondral calcification,predominantly at the medial aspect of the knee. IMPRESSION: No acute fracture or dislocation identified. Report dictated by Brennen Antoine DO (executive vice president and chief operating officer). Lina Sewell MD have personally reviewed and interpreted this examination/study. > Interpreting Provider: Lina Weinberg MD on 09/20/2024 8:25 AM Zeinab Taylor RADIO TIME SALES SUPERVISOR-TOW MOTOR OPERATOR DIAGNOSTIC I MAGING ORDERABLES * XR Pelvis W Left Hip 2Vw (09/19/2024 7:47 PM PLANNING TECHNICIAN) Anatomical Region Laterality Modality Pelvis Digital Radiogra phy 09/19/2024 7:47 PM PLANNING TECHNICIAN Impressions 09/20/2024 8:24 AM PLANNING TECHNICIAN IMPRESSION: No acute fracture identified. Report dictated by Brennen Antoine DO (executive vice president and chief operating officer). Lina Sewell MD have personally reviewed and interpreted this examination/study. > Interpreting Provider: Lina Weinberg MD on 09/20/2024 8:24 AM Narrative 09/20/2024 8:24 AM PLANNING TECHNICIAN PROCEDURE: XR PELVIS W LEFT HIP 2VW, DATE/TIME OF EXAM: 09/19/2024 7:48 PM, LOCATION [facility] INDICATION: M25.552: Left hip pain ADDITIONAL CLINICAL INFORMATION: Ordering Provider Reason For Exam: r/o fx Technologist Note: Additional: None. COMPARISON: None. FINDINGS: No acute fracture is identified. The femoral heads appear well-seated within their respective acetabula. The pubic symphysis is intact. Bone density and texture are normal. The sacroiliac joints are normal. Procedure Note Lina Weinberg MD - 09/20/2024 PROCEDURE: XR PELVIS W LEFT HIP 2VW, DATE/TIME OF EXAM: 09/19/2024 7:48 PM, LOCATION [facility] INDICATION: M25.552: Left hip pain ADDITIONAL CLINICAL INFORMATION: Ordering Provider Reason For Exam: r/o fx Technologist Note: Additional: None. COMPARISON: None. FINDINGS: No acute fracture is identified. The femoral heads appear well-seated within their respective acetabula. The pubic symphysis is intact. Bone density and texture are normal. The sacroiliac joints are normal. IMPRESSION: No acute fracture identified. Report dictated by Brennen Antoine DO (executive vice president and chief operating officer). Lina Sewell MD have personally reviewed and interpreted this examination/study. > Interpreting Provider: Lina Weinberg MD on 09/20/2024 8:24 AM Zeinab Taylor RADIO TIME SALES SUPERVISOR-TOW MOTOR OPERATOR DIAGNOSTIC I MAGING ORDERABLES * CT Lumbar Spine Wo Contrast (09/19/2024 7:32 PM PLANNING TECHNICIAN) Anatomical Region Laterality Modality Spine Computed Tomogra phy 09/19/2024 7:40 PM PLANNING TECHNICIAN Impressions 09/19/2024 7:53 PM PLANNING TECHNICIAN IMPRESSION: 1. No evidence of acute fracture in the cervical, thoracic, or lumbar spine. > Interpreting Provider: Jackie Olmedo MD on 09/19/2024 7:53 PM Narrative 09/19/2024 7:53 PM PLANNING TECHNICIAN PROCEDURE: CT CERVICAL SPINE WO CONTRAST, CT THORACIC SPINE WO CONTRAST, CT LUMBAR SPINE WO CONTRAST, DATE/TIME OF EXAM: 09/19/2024 7:32 PM, LOCATION [facility] INDICATION: W19.XXXA: Fall, initial encounter ADDITIONAL CLINICAL INFORMATION: Ordering Provider Reason For Exam: r/o fx, misalignment Technologist Note: Additional: EXAMINATION: 1. Computed tomography (CT) of the cervical spine without contrast 2. CT of the thoracic spine without contrast 3. CT of the lumbar spine without contrast TECHNIQUE: CT of the cervical, thoracic, and lumbar spine was performed without contrast according to standard protocol. COMPARISON: 01/31/2024. FINDINGS: Cervical spine: There is atherosclerotic calcification of the carotid bifurcations. The alignment is normal. The prevertebral soft tissue is normal in thickness. The mineralization of the bones is normal. Vertebral bodies are normal in height without evidence of acute fracture. Other than middle atlantoaxial joint osteoarthritis, the craniocervical junction appears normal. There is mild multilevel degenerative disc disease. The central canal is mildly stenotic at C5-6 and C6-7. There are varying degrees of mild facet osteoarthritis. There are varying degrees of mild uncovertebral joint osteoarthritis. No neural foraminal stenosis is seen. Thoracic spine: Emphysematous changes in the periphery of the lungs. The alignment is normal. The mineralization of the bones is normal. Vertebral bodies are normal in height without evidence of acute fracture. There is mild multilevel degenerative disc disease. Multiple small Schmorl's nodes. The central canal is patent. The facets appear normal. No neural foraminal stenosis is seen. Lumbar spine: There is atherosclerotic calcification of the abdominal aorta and its branch vessels. Mild levoscoliosis. Grade 1 anterolisthesis of L4 on L5 and mild retrolisthesis of L5 on S1, unchanged. The bones are mildly osteopenic. Chronic superior endplate compression fractures of the L2 and L3 vertebral bodies with less than 25% height loss are unchanged. No acute compression fractures. There is mild multilevel degenerative disc disease. The central canal is mildly stenotic at L4-L5. There are varying degrees of up to moderate facet osteoarthritis. Mild right and moderate left neuroforaminal stenosis at L5-S1. Procedure Note Jackie Olmedo MD - 09/19/2024 PROCEDURE: CT CERVICAL SPINE WO CONTRAST, CT THORACIC SPINE WOCONTRAST, CT LUMBAR SPINE WO CONTRAST, DATE/TIME OF EXAM: 09/19/2024 7:32 PM, LOCATION [facility] INDICATION: W19.XXXA: Fall, initial encounter ADDITIONAL CLINICAL INFORMATION: Ordering Provider Reason For Exam: r/o fx, misalignment Technologist Note: Additional: EXAMINATION: 1. Computed tomography (CT) of the cervical spine without contrast 2. CT of the thoracic spine without contrast 3. CT of the lumbar spine without contrast TECHNIQUE: CT of the cervical, thoracic, and lumbar spine was performed without contrast according to standard protocol. COMPARISON: 01/31/2024. FINDINGS: Cervical spine: There is atherosclerotic calcification of the carotid bifurcations. The alignment is normal. The prevertebral soft tissue is normal in thickness. The mineralization of the bones is normal. Vertebral bodiesare normal in height without evidence of acute fracture. Other than middle atlantoaxial joint osteoarthritis, the craniocervical junction appears normal. There is mild multilevel degenerative disc disease. The central canal is mildly stenotic at C5-6 and C6-7. There are varying degrees of mild facet osteoarthritis. There are varying degrees of milduncovertebral joint osteoarthritis. No neural foraminal stenosis is seen. Thoracic spine: Emphysematous changes in the periphery of the lungs. The alignment is normal. The mineralization of the bones is normal. Vertebral bodies are normal in height without evidence of acutefracture. There is mild multilevel degenerative disc disease. Multiple small Schmorl's nodes. The central canal is patent. The facets appear normal.No neural foraminal stenosis is seen. Lumbar spine: There is atherosclerotic calcification of the abdominal aorta and its branch vessels. Mild levoscoliosis. Grade 1 anterolisthesis of L4 on L5 and mild retrolisthesis of L5 on S1, unchanged. The bones are mildly osteopenic. Chronic superior endplate compression fractures of the L2 and I1hbxmpjnzh bodies with less than 25% height loss are unchanged. No acutecompression fractures. There is mild multilevel degenerative disc disease. Thecentral canal is mildly stenotic at L4-L5. There are varying degrees of up to moderate facet osteoarthritis. Mild right and moderate leftneuroforaminal stenosis at L5-S1. IMPRESSION: 1. No evidence of acute fracture in the cervical, thoracic, or lumbar spine. > Interpreting Provider: Jackie Olmedo MD on 09/19/2024 7:53 PM Zeinab Taylor RADIO TIME SALES SUPERVISOR-TOW MOTOR OPERATOR CT ORDERABLE S * CT Thoracic Spine Wo Contrast (09/19/2024 7:32 PM PLANNING TECHNICIAN) Anatomical Region Laterality Modality Spine Computed Tomogra phy 09/19/2024 7:40 PM PLANNING TECHNICIAN Impressions 09/19/2024 7:53 PM PLANNING TECHNICIAN IMPRESSION: 1. No evidence of acute fracture in the cervical, thoracic, or lumbar spine. > Interpreting Provider: Jackie Olmedo MD on 09/19/2024 7:53 PM Narrative 09/19/2024 7:53 PM PLANNING TECHNICIAN PROCEDURE: CT CERVICAL SPINE WO CONTRAST, CT THORACIC SPINE WO CONTRAST, CT LUMBAR SPINE WO CONTRAST, DATE/TIME OF EXAM: 09/19/2024 7:32 PM, LOCATION [facility] INDICATION: W19.XXXA: Fall, initial encounter ADDITIONAL CLINICAL INFORMATION: Ordering Provider Reason For Exam: r/o fx, misalignment Technologist Note: Additional: EXAMINATION: 1. Computed tomography (CT) of the cervical spine without contrast 2. CT of the thoracic spine without contrast 3. CT of the lumbar spine without contrast TECHNIQUE: CT of the cervical, thoracic, and lumbar spine was performed without contrast according to standard protocol. COMPARISON: 01/31/2024. FINDINGS: Cervical spine: There is atherosclerotic calcification of the carotid bifurcations. The alignment is normal. The prevertebral soft tissue is normal in thickness. The mineralization of the bones is normal. Vertebral bodies are normal in height without evidence of acute fracture. Other than middle atlantoaxial joint osteoarthritis, the craniocervical junction appears normal. There is mild multilevel degenerative disc disease. The central canal is mildly stenotic at C5-6 and C6-7. There are varying degrees of mild facet osteoarthritis. There are varying degrees of mild uncovertebral joint osteoarthritis. No neural foraminal stenosis is seen. Thoracic spine: Emphysematous changes in the periphery of the lungs. The alignment is normal. The mineralization of the bones is normal. Vertebral bodies are normal in height without evidence of acute fracture. There is mild multilevel degenerative disc disease. Multiple small Schmorl's nodes. The central canal is patent. The facets appear normal. No neural foraminal stenosis is seen. Lumbar spine: There is atherosclerotic calcification of the abdominal aorta and its branch vessels. Mild levoscoliosis. Grade 1 anterolisthesis of L4 on L5 and mild retrolisthesis of L5 on S1, unchanged. The bones are mildly osteopenic. Chronic superior endplate compression fractures of the L2 and L3 vertebral bodies with less than 25% height loss are unchanged. No acute compression fractures. There is mild multilevel degenerative disc disease. The central canal is mildly stenotic at L4-L5. There are varying degrees of up to moderate facet osteoarthritis. Mild right and moderate left neuroforaminal stenosis at L5-S1. Procedure Note Jackie Olmedo MD - 09/19/2024 PROCEDURE: CT CERVICAL SPINE WO CONTRAST, CT THORACIC SPINE WOCONTRAST, CT LUMBAR SPINE WO CONTRAST, DATE/TIME OF EXAM: 09/19/2024 7:32 PM, LOCATION [facility] INDICATION: W19.XXXA: Fall, initial encounter ADDITIONAL CLINICAL INFORMATION: Ordering Provider Reason For Exam: r/o fx, misalignment Technologist Note: Additional: EXAMINATION: 1. Computed tomography (CT) of the cervical spine without contrast 2. CT of the thoracic spine without contrast 3. CT of the lumbar spine without contrast TECHNIQUE: CT of the cervical, thoracic, and lumbar spine was performed without contrast according to standard protocol. COMPARISON: 01/31/2024. FINDINGS: Cervical spine: There is atherosclerotic calcification of the carotid bifurcations. The alignment is normal. The prevertebral soft tissue is normal in thickness. The mineralization of the bones is normal. Vertebral bodiesare normal in height without evidence of acute fracture. Other than middle atlantoaxial joint osteoarthritis, the craniocervical junction appears normal. There is mild multilevel degenerative disc disease. The central canal is mildly stenotic at C5-6 and C6-7. There are varying degrees of mild facet osteoarthritis. There are varying degrees of milduncovertebral joint osteoarthritis. No neural foraminal stenosis is seen. Thoracic spine: Emphysematous changes in the periphery of the lungs. The alignment is normal. The mineralization of the bones is normal. Vertebral bodies are normal in height without evidence of acutefracture. There is mild multilevel degenerative disc disease. Multiple small Schmorl's nodes. The central canal is patent. The facets appear normal.No neural foraminal stenosis is seen. Lumbar spine: There is atherosclerotic calcification of the abdominal aorta and its branch vessels. Mild levoscoliosis. Grade 1 anterolisthesis of L4 on L5 and mild retrolisthesis of L5 on S1, unchanged. The bones are mildly osteopenic. Chronic superior endplate compression fractures of the L2 and E0vzjrrfpoe bodies with less than 25% height loss are unchanged. No acutecompression fractures. There is mild multilevel degenerative disc disease. Thecentral canal is mildly stenotic at L4-L5. There are varying degrees of up to moderate facet osteoarthritis. Mild right and moderate leftneuroforaminal stenosis at L5-S1. IMPRESSION: 1. No evidence of acute fracture in the cervical, thoracic, or lumbar spine. > Interpreting Provider: Jackie Olmedo MD on 09/19/2024 7:53 PM Zeinab Taylor RADIO TIME SALES SUPERVISOR-TOW MOTOR OPERATOR CT ORDERABLE S * CT Cervical Spine Wo Contrast (09/19/2024 7:32 PM PLANNING TECHNICIAN) Anatomical Region Laterality Modality Spine Computed Tomogra phy 09/19/2024 7:40 PM PLANNING TECHNICIAN Impressions 09/19/2024 7:53 PM PLANNING TECHNICIAN IMPRESSION: 1. No evidence of acute fracture in the cervical, thoracic, or lumbar spine. > Interpreting Provider: Jackie Olmedo MD on 09/19/2024 7:53 PM Narrative 09/19/2024 7:53 PM PLANNING TECHNICIAN PROCEDURE: CT CERVICAL SPINE WO CONTRAST, CT THORACIC SPINE WO CONTRAST, CT LUMBAR SPINE WO CONTRAST, DATE/TIME OF EXAM: 09/19/2024 7:32 PM, LOCATION [facility] INDICATION: W19.XXXA: Fall, initial encounter ADDITIONAL CLINICAL INFORMATION: Ordering Provider Reason For Exam: r/o fx, misalignment Technologist Note: Additional: EXAMINATION: 1. Computed tomography (CT) of the cervical spine without contrast 2. CT of the thoracic spine without contrast 3. CT of the lumbar spine without contrast TECHNIQUE: CT of the cervical, thoracic, and lumbar spine was performed without contrast according to standard protocol. COMPARISON: 01/31/2024. FINDINGS: Cervical spine: There is atherosclerotic calcification of the carotid bifurcations. The alignment is normal. The prevertebral soft tissue is normal in thickness. The mineralization of the bones is normal. Vertebral bodies are normal in height without evidence of acute fracture. Other than middle atlantoaxial joint osteoarthritis, the craniocervical junction appears normal. There is mild multilevel degenerative disc disease. The central canal is mildly stenotic at C5-6 and C6-7. There are varying degrees of mild facet osteoarthritis. There are varying degrees of mild uncovertebral joint osteoarthritis. No neural foraminal stenosis is seen. Thoracic spine: Emphysematous changes in the periphery of the lungs. The alignment is normal. The mineralization of the bones is normal. Vertebral bodies are normal in height without evidence of acute fracture. There is mild multilevel degenerative disc disease. Multiple small Schmorl's nodes. The central canal is patent. The facets appear normal. No neural foraminal stenosis is seen. Lumbar spine: There is atherosclerotic calcification of the abdominal aorta and its branch vessels. Mild levoscoliosis. Grade 1 anterolisthesis of L4 on L5 and mild retrolisthesis of L5 on S1, unchanged. The bones are mildly osteopenic. Chronic superior endplate compression fractures of the L2 and L3 vertebral bodies with less than 25% height loss are unchanged. No acute compression fractures. There is mild multilevel degenerative disc disease. The central canal is mildly stenotic at L4-L5. There are varying degrees of up to moderate facet osteoarthritis. Mild right and moderate left neuroforaminal stenosis at L5-S1. Procedure Note Jackie Olmedo MD - 09/19/2024 PROCEDURE: CT CERVICAL SPINE WO CONTRAST, CT THORACIC SPINE WOCONTRAST, CT LUMBAR SPINE WO CONTRAST, DATE/TIME OF EXAM: 09/19/2024 7:32 PM, LOCATION [facility] INDICATION: W19.XXXA: Fall, initial encounter ADDITIONAL CLINICAL INFORMATION: Ordering Provider Reason For Exam: r/o fx, misalignment Technologist Note: Additional: EXAMINATION: 1. Computed tomography (CT) of the cervical spine without contrast 2. CT of the thoracic spine without contrast 3. CT of the lumbar spine without contrast TECHNIQUE: CT of the cervical, thoracic, and lumbar spine was performed without contrast according to standard protocol. COMPARISON: 01/31/2024. FINDINGS: Cervical spine: There is atherosclerotic calcification of the carotid bifurcations. The alignment is normal. The prevertebral soft tissue is normal in thickness. The mineralization of the bones is normal. Vertebral bodiesare normal in height without evidence of acute fracture. Other than middle atlantoaxial joint osteoarthritis, the craniocervical junction appears normal. There is mild multilevel degenerative disc disease. The central canal is mildly stenotic at C5-6 and C6-7. There are varying degrees of mild facet osteoarthritis. There are varying degrees of milduncovertebral joint osteoarthritis. No neural foraminal stenosis is seen. Thoracic spine: Emphysematous changes in the periphery of the lungs. The alignment is normal. The mineralization of the bones is normal. Vertebral bodies are normal in height without evidence of acutefracture. There is mild multilevel degenerative disc disease. Multiple small Schmorl's nodes. The central canal is patent. The facets appear normal.No neural foraminal stenosis is seen. Lumbar spine: There is atherosclerotic calcification of the abdominal aorta and its branch vessels. Mild levoscoliosis. Grade 1 anterolisthesis of L4 on L5 and mild retrolisthesis of L5 on S1, unchanged. The bones are mildly osteopenic. Chronic superior endplate compression fractures of the L2 and W0tibbzwjxp bodies with less than 25% height loss are unchanged. No acutecompression fractures. There is mild multilevel degenerative disc disease. Thecentral canal is mildly stenotic at L4-L5. There are varying degrees of up to moderate facet osteoarthritis. Mild right and moderate leftneuroforaminal stenosis at L5-S1. IMPRESSION: 1. No evidence of acute fracture in the cervical, thoracic, or lumbar spine. > Interpreting Provider: Jackie Olmedo MD on 09/19/2024 7:53 PM Zeinab Taylor RADIO TIME SALES SUPERVISOR-TOW MOTOR OPERATOR CT ORDERABLE S * HEL[facility] PYLORI ANTIGEN FECES (09/02/2024 12:30 PM PLANNING TECHNICIAN) Helicobacter pylori Antigen Stool Negative Negative 09/04/2024 1:46 PM PLANNING TECHNICIAN [facility] ([facility]) Comment: Performed By: [facility] [address] [place] [id number] Bindery Helper: Alfonso Mercado MD, PhD CLIA Number: [id number] Stool STOOL SPECIMEN / Unknown Collection / Unknown 09/02/2024 12:30 PM PLANNING TECHNICIAN 09/02/2024 12:31 PM PLANNING TECHNICIAN Bernadette Watson MD LAB - MICROBIOLOGY [facility] ([id number]) [address] * HEPATITIS SCREEN ACUTE (05/07/2013 5:15 AM CDT) Hepatitis A Virus Antibody IgM NONREACTIVE NONREACTIVE [facility] Hepatitis C Antibody NONREACTIVE NONREACTIVE [facility] Comment: Anti-HCV screen indicates no serologic evidence of past or current infection with Hepatitis C Virus. Patients with unexplained liver disease who are immunocompromised or suspected of having acute Hepatitis C infection may benefit from Nucleic Acid Test (SELWYN) for Hepatitis C Viral RNA to confirm Hepatitis C status. Hepatitis B Virus Surface Antigen NONREACTIVE NONREACTIVE [facility] Hepatitis B Core Virus Antibody IgM NONREACTIVE NONREACTIVE [facility] 05/07/2013 5:15 AM CDT 05/07/2013 5:57 AM CDT Arnold Mireles MD LAB - CHEMISTRY [facility] [address] [phone] from Last 3 Months or Most Recently Relevant to Health Maintenance Advance Directives * Full Code (Latest Code Status on File) Date Activated Date Inactivated Comments 10/08/2024 11:08 PM 10/09/2024 7:02 AM * Full Code Date Activated Date Inactivated Comments 01/28/2024 5:07 AM 01/28/2024 12:26 PM * Full Code Date Activated Date Inactivated Comments 01/01/2024 5:44 PM 01/01/2024 8:27 PM * Full Code Date Activated Date Inactivated Comments 01/01/2024 4:32 PM 01/01/2024 5:44 PM * Full Code Date Activated Date Inactivated Comments 12/31/2023 9:59 AM 12/31/2023 10:03 PM Care Teams Infusion Rn Relationship Specialty Start Date End Date Brett Chávez MD [address] [place] [phone] PCP - General 08/23/22 Ally Chambers, RN Bag Filler Machine Operator 09/12/16
--- OUTSIDE RECORDS SUMMARY | 2024-10-13 01:27 | XMS_ITS | Patient Health Summary ---
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 BUN/Creatinine Ratio 15 7 - 23 10/09/2024 2:48 AM [facility] Osmolality Calculated 289 275 - 295 mOsm/kg 10/09/2024 2:48 AM [facility] eGFR by CKD-EPI >90 >=90 mL/min/1.7 3 m2 10/09/2024 2:48 AM [facility] Blood BLOOD SPECIMEN / Unknown Venipuncture / Unknown 10/09/2024 2:19 AM [employer] 10/09/2024 2:23 AM [facility] Nilesh Krause DO LAB - CHEMISTRY [facility] Organization Address City/State/[facility] Co de Phone Number [facility] [address] [place] [address], [facility] [phone] * PHOSPHORUS BLOOD (10/09/2024 2:19 AM [employer]) Only the most recent of11 resultswithin the time period is included. Phosphorus 4.4 2.9 - 5.1 mg/dL 10/09/2024 2:48 AM [facility] Blood BLOOD SPECIMEN / Unknown Venipuncture / Unknown 10/09/2024 2:19 AM [employer]OR[employer] 10/09/2024 2:23 AM [employer] Nilesh Krause DO LAB - CHEMISTRY [facility] Performing Organization Address City/[facility]/ZIP Co de Phone Number [address] [address], [facility] [phone] * MAGNESIUM BLOOD (10/09/2024 2:19 AM [employer]) Only the most recent of15 resultswithin the time period is included. Magnesium 1.9 1.6 - 2.6 mg/dL 10/09/2024 2:48 AM [employer]PER[employer]OR DECORATING [facility] Blood BLOOD SPECIMEN / Unknown Venipuncture / Unknown 10/09/2024 2:19 AM [employer]ORATING 10/09/2024 2:23 AM [employer] Nilesh Krause DO LAB - CHEMISTRY [facility] Performing Organization Address [facility] Co de Phone Number [address] [address], [facility] [phone] * CT Chest Abdomen Pelvis W Cont (10/08/2024 7:44 PM [employer]) Anatomical Region Laterality Modality Chest, Abdomen, Pelvis Computed Tomography 10/08/2024 7:51 PM [employer] Impressions 10/08/2024 10:55 PM [employer] DECORATING Impression: 1.Postoperative appearance of Janell-en-Y gastric bypass. [...] 10/08/2024 10:55 PM Narrative 10/08/2024 10:55 PM [employer] DECORATING Procedure Information DATE: 10/08/2024 7:45 PM EXAMINATION: [...] > Interpreting Provider: Mamie Scales MD on 0:55 PM Bronson Shaw MD CT ORDERABLES * CT Neck Soft Tissue W Cont (10/08/2024 7:44 PM [employer]) Anatomical Region Laterality Modality Head Computed Tomogra phy 10/08/2024 8:01 PM [employer] Impressions 10/08/2024 8:53 PM [employer]ORATING IMPRESSION: 1.No evidence of soft tissue swelling, mass or acute pathology in the neck. 2.There is no evidence of abscess, pneumomediastinum or soft tissue air. The report is dictated by Diana Real MD (executive vice president of sales) Carlos Sewell MD have personally reviewed and interpreted this examination/study. > Interpreting Provider: Carlos Carrera MD on 10/08/2024 8:53 PM Narrative 10/08/2024 8:53 PM [employer] PROCEDURE: CT NECK SOFT TISSUE W CONT, DATE/TIME OF EXAM: 10/08/2024 7:45 PM, LOCATION [facility] INDICATION: R11.14: Bilious vomiting with nausea ADDITIONAL [...] CONT, DATE/TIME OF EXAM: 57:45 PM, LOCATION [facility] INDICATION: R11.14: Bilious vomiting with nausea ADDITIONAL [...] by Diana Real MD (executive vice president of sales) I, Carlos Carrera MD have personally reviewed and interpreted this examination/study. > Interpreting Provider: Carlos Carrera MD on 10/08/2024 8:53 PM Bronson Shaw MD CT ORDERABLES * (ABNORMAL) HGB HCT PANEL (10/08/2024 7:10 PM [employer]) Only the most recent of4 resultswithin the time period is included. Hemoglobin 10.9(L) 11.9 - 15.8 g/dL 10/08/2024 7:21 PM [facility] Hematocrit 35.8 34.8 - 46.1 % 10/08/2024 7:21 PM [facility] Blood BLOOD SPECIMEN / Unknown Venipuncture / Unknown 10/08/2024 7:10 PM [employer]ATING 10/08/2024 7:16 PM [employer]PER[employer] DECORATING Bronson Shaw MD LAB - HEMATOLOG Y ORDERABLES [address] [address], [facility] [phone] * SARS-COV-2 (COVID-19)+INFLU A+B PCR RAPID (10/08/2024 7:09 PM [employer]) COVID-19 PCR Not detected Not detected 10/09/19 7:57 PM SUPERVISOR DECORATING [facility] Influenza A Rapid YULIANA Not Detected Not Detected 10/08/2024 7:57 PM [employer]PER[employer]OR DECORATING [facility] Influenza B YULIANA Rapid Not Detected Not Detected 10/08/2024 7:57 PM SUPERVISOR DECORATING [facility] Microbiology SPECIMEN FROM NASOPHARYNGEAL STRUCTURE / Unknown Collection / Unknown 10/08/2024 7:09 PM [employer]PER[employer] DECORATING 10/08/2024 7:14 PM [employer] DECORATING Narrative [facility] - 10/08/2024 7:57 PM [employer] DECORATING Influenza assay performed by [employer]. [...] acid amplification assay performance was validated by [facility]. This test has been authorized by [...] Shaw MD LAB - MICROBIOL OGY ORDERABLES Performing Organization Address City/State/[facility] Co de Phone Number [address] [address], [facility] [phone] * (ABNORMAL) PT-INR [facility] (10/08/2024 3:25 PM [employer]OR[employer]) Only the most recent of18 resultswithin the time period is included. PT 12.0(L) 12.1 - 14.8 Seconds 10/08/2024 3:58 PM SUPERVISOR DECORATING [facility] INR 0.9 See Comment 10/08/2024 3:58 PM SUPERVISOR DECORATING [facility] Comment:The suggested therap eutic range for standard coumadin (warfarin) therapy is an INR of 2.0-3.0. For high-risk patients (Mechanical Mitral Valve Prosthesis, etc.), the suggested prophylactic therapeutic range is an INR of 2.5-3.5. Blood BLOOD SPECIMEN / Unknown Venipuncture / Unknown 10/08/2024 3:25 PM [employer]PER[employer] DECORATING 10/08/2024 3:33 PM SUPERVISOR DECORATING [facility]inab [facility] LAB - COAGUL ATION ORDERABLES Performing Organization Address City/[facility]/ZIP Co de Phone Number [facility] [address] [place] [address], [facility] [phone] * TYPE + SCREEN PANEL (10/08/2024 3:25 PM [employer]) Only the most recent of7 resultswithin the time period is included. Antibody Screen NEG 4:24 PM [facility] LAB ABO Rh O POS 10/08/2024 4:24 PM [facility] Blood Bank BLOOD SPECIMEN / Unknown Venipuncture / Unknown 10/08/2024 3:25 PM SUPERVISOR DECORATING 10/08/2024 3:40 PM [employer]PER[employer] DECORATING [facility]inab Taylor [facility] LAB - BLOOD BANK ORDERABLES Performing Organization Address [facility] Co de Phone Number [facility] BLOOD [facility] LAB [address] [place] [address], [facility] [phone] * COMPREHENSIVE METABOLIC PANEL (10/08/2024 3:25 PM [employer]) Only the most recent of22 resultswithin the time period is included. BUN 11 7 - 26 mg/dL 10/08/2024 4:02 PM [facility] Creatinine 0.63 0.56 - 0.96 mg/dL 10/08/2024 4:02 PM [facility] Sodium 138 136 - 145 mmol/L 10/08/2024 4:02 PM [facility] Potassium 4.2 3.5 - 4.5 mmol/L 10/08/2024 4:02 PM [facility] Chloride 107 98 - 107 mmol/L 10/08/2024 4:02 PM [facility] CO2 22 22 - 29 mmol/L 10/08/2024 4:02 PM [facility] Glucose 88 70 - 99 mg/dL 10/08/2024 4:02 PM [facility] Calcium 8.9 8.4 - 10.2 mg/dL 10/08/2024 4:02 PM [facility] Protein Total 6.8 6.0 - 8.3 g/dL 10/08/2024 4:02 PM [facility] Albumin 3.9 3.4 - 5.0 g/dL 10/08/2024 4:02 PM [facility] Bilirubin Total 0.2 0.2 - 1.2 mg/dL 10/08/2024 4:02 PM [facility] Alkaline Phosphatase 111 40 - 150 U/L 10/08/2024 4:02 PM [facility] ALT 23 5 - 55 U/L 10/08/2024 4:02 PM [facility] AST 25 5 - 34 U/L 10/08/2024 4:02 PM [facility] Anion Gap 9 6 - 16 10/08/2024 4:02 PM [facility] BUN/Creatinine Ratio 17 7 - 23 10/08/2024 4:02 PM [facility] Osmolality Calculated 285 275 - 295 mOsm/kg 10/08/2024 4:02 PM [facility] Albumin/Globulin Ratio 1.3 1.1 - 2.3 10/08/2024 4:02 PM [facility] eGFR by CKD-EPI >90 >=90 mL/min/1.7 3 m2 10/08/2024 4:02 PM [facility] Blood BLOOD SPECIMEN / Unknown Venipuncture / Unknown 10/08/2024 3:25 PM [employer]ORATING 10/08/2024 3:35 PM [facility] Zeinab Taylor HOUSEKEEPING STAFF-ACCOUNTING TECHNICIAN LAB - CHEMIS TRY ORDERABLES [facility] [address] [place] [address], [facility] [phone] * XR Knee Right 3Vw (09/19/2024 7:48 PM [employer]PER[employer] DECORATING) Anatomical Region Laterality Modality Lower Extremity Digital Radiogra phy 09/19/2024 7:44 PM [employer]ORATING Impressions 09/20/2024 8:25 AM [employer]PER[employer]OR DECORATING IMPRESSION: No acute fracture or dislocation identified. Report dictated by Brennen Antoine DO (executive vice president of sales). Lina Sewell MD have personally reviewed and interpreted this examination/study. > Interpreting Provider: Lina Weinberg MD on 09/20/2024 8:25 AM Narrative 09/20/2024 8:25 AM [employer] DECORATING PROCEDURE: XR KNEE RIGHT 3VW, DATE/TIME OF EXAM: 09/19/2024 7:16 PM, LOCATION [facility] INDICATION: M25.552: Left hip pain ADDITIONAL CLINICAL [...] DATE/TIME OF EXAM: 09/19/2024 7:16 PM, LOCATION [facility] INDICATION: M25.552: Left hip pain ADDITIONAL CLINICAL [...] by Brennen Antoine DO (executive vice president of sales). Lina Sewell MD have personally reviewed and interpreted this examination/study. > Interpreting Provider: Lina Weinberg MD on 09/20/2024 8:25 AM Zeinab Taylor HOUSEKEEPING STAFF-ACCOUNTING TECHNICIAN DIAGNOSTIC I MAGING ORDERABLES * XR Pelvis W Left Hip 2Vw (09/19/2024 7:47 PM [employer]PER[employer] DECORATING) Anatomical Region Laterality Modality Pelvis Digital Radiogra phy 09/19/2024 7:47 PM [employer]OR DECORATING Impressions 09/20/2024 8:24 AM [employer]ORATING IMPRESSION: No acute fracture identified. Report dictated by Brennen Antoine DO (executive vice president of sales). Lina Sewell MD have personally reviewed and interpreted this examination/study. > Interpreting Provider: Lina Weinberg MD on 09/20/2024 8:24 AM Narrative 09/20/2024 8:24 AM [employer]OR[employer] PROCEDURE: XR PELVIS W LEFT HIP 2VW, DATE/TIME OF EXAM: 09/19/2024 7:48 PM, LOCATION [facility] INDICATION: M25.552: Left hip pain ADDITIONAL CLINICAL [...] DATE/TIME OF EXAM: 09/19/2024 7:48 PM, LOCATION [facility] INDICATION: M25.552: Left hip pain ADDITIONAL CLINICAL [...] by Brennen Antoine DO (executive vice president of sales). Lina Sewell MD have personally reviewed and interpreted this examination/study. > Interpreting Provider: Lina Weinberg MD on 09/20/2024 8:24 AM Zeinab Taylor HOUSEKEEPING STAFF-ACCOUNTING TECHNICIAN DIAGNOSTIC I MAGING ORDERABLES * CT Lumbar Spine Wo Contrast (09/19/2024 7:32 PM [employer] DECORATING) Only the most recent of2 resultswithin the time period is included. Anatomical Region Laterality Modality Spine Computed Tomogra phy 09/19/2024 7:40 PM SUPERVISOR DECORATING Impressions 09/19/2024 7:53 PM SUPERVISOR DECORATING IMPRESSION: 1. No evidence of acute fracture in the cervical, thoracic, or lumbar spine. > Interpreting Provider: Jackie Olmedo MD on 09/19/2024 7:53 PM Narrative 09/19/2024 7:53 PM SUPERVISOR DECORATING PROCEDURE: CT CERVICAL SPINE WO CONTRAST, CT THORACIC SPINE WO CONTRAST, CT LUMBAR SPINE WO CONTRAST, DATE/TIME OF EXAM: 09/19/2024 7:32 PM, LOCATION [facility] INDICATION: W19.XXXA: Fall, initial encounter ADDITIONAL CLINICAL [...] DATE/TIME OF EXAM: 09/19/2024 7:32 PM, LOCATION [facility] INDICATION: W19.XXXA: Fall, initial encounter ADDITIONAL CLINICAL [...] endplate compression fractures of the L2 and [id number] bodies with less than 25% height loss [...] MD on 09/19/2024 7:53 PM Zeinab Taylor HOUSEKEEPING STAFF-ACCOUNTING TECHNICIAN CT ORDERABLE S * CT Thoracic Spine Wo Contrast (09/19/2024 7:32 PM SUPER[employer]OR DECORATING) Anatomical Region Laterality Modality Spine Computed Tomogra phy 09/19/2024 7:40 PM SUPERVISOR DECORATING Impressions 09/19/2024 7:53 PM SUPERVISOR DECORATING IMPRESSION: 1. No evidence of acute fracture in the cervical, thoracic, or lumbar spine. > Interpreting Provider: Jackie Olmedo MD on 09/19/2024 7:53 PM Narrative 09/19/2024 7:53 PM SUPERVISOR DECORATING PROCEDURE: CT CERVICAL SPINE WO CONTRAST, CT THORACIC SPINE WO CONTRAST, CT LUMBAR SPINE WO CONTRAST, DATE/TIME OF EXAM: 09/19/2024 7:32 PM, LOCATION [facility] INDICATION: W19.XXXA: Fall, initial encounter ADDITIONAL CLINICAL [...] DATE/TIME OF EXAM: 09/19/2024 7:32 PM, LOCATION [facility] INDICATION: W19.XXXA: Fall, initial encounter ADDITIONAL CLINICAL [...] endplate compression fractures of the L2 and [id number] bodies with less than 25% height loss [...] Olmedo MD on 09/19/2024 7:53 PM Zeinab Kiddadams HOUSEKEEPING STAFF-ACCOUNTING TECHNICIAN CT ORDERABLE S * CT Cervical Spine Wo Contrast (09/19/2024 7:32 PM SUPER[employer]OR DECORATING) Only the most recent of2 resultswithin the time period is included. Anatomical Region Laterality Modality Spine Computed Tomogra phy 09/19/2024 7:40 PM SUPERVISOR DECORATING Impressions 09/19/2024 7:53 PM SUPERVISOR DECORATING IMPRESSION: 1. No evidence of acute fracture in the cervical, thoracic, or lumbar spine. > Interpreting Provider: Jackie Olmedo MD on 09/19/2024 7:53 PM Narrative 09/19/2024 7:53 PM SUPERVISOR DECORATING PROCEDURE: CT CERVICAL SPINE WO CONTRAST, CT THORACIC SPINE WO CONTRAST, CT LUMBAR SPINE WO CONTRAST, DATE/TIME OF EXAM: 09/19/2024 7:32 PM, LOCATION [facility] INDICATION: W19.XXXA: Fall, initial encounter ADDITIONAL CLINICAL [...] DATE/TIME OF EXAM: 09/19/2024 7:32 PM, LOCATION [facility] INDICATION: W19.XXXA: Fall, initial encounter ADDITIONAL CLINICAL [...] endplate compression fractures of the L2 and [id number] bodies with less than 25% height loss [...] Jackie Olmedo MD on 09/19/2024 7:53 PM Zeinabalexia Taylor HOUSEKEEPING STAFF-ACCOUNTING TECHNICIAN CT ORDERABLE S * HELICOBACTER PYLORI ANTIGEN FECES (09/02/2024 12:30 PM SUPERVISOR DECORATING) Helicobacter pylori Antigen Stool Negative Negative 09/04/2024 1:46 PM SUPERVISOR DECORATING [facility] ([facility]) Comment: Performed By: [employer] [address] [place] [address] Briquette Molder: Alfonso Mercado MD, PhD CLIA Number: [id number] Stool STOOL SPECIMEN / Unknown Collection / Unknown 09/02/2024 12:30 PM SUPERVISOR DECORATING 09/02/2024 12:31 PM SUPERVISOR DECORATING Bernadette Watson MD LAB - MICROBIOLOGY O RDERABLES [facility] ([facility]) [address] [place] [address], [facility] * MRI LUMBAR SPINE WO CONTRAST (02/16/2024 3:33 PM CDT) Anatomical Region Laterality Modality Spine Magnetic Resonan ce 02/17/2024 4:08 PM CDT Impressions 02/19/2024 8:33 AM CDT IMPRESSION: 1.Redemonstration of resolving surgical site infection, with interval decreased size of T2 bright small fluid collection in the posterior paraspinal soft tissues the lower lumbar spine at the site of the surgical incision, now measuring approximately 1.9 x 1.9 x 4 cm, previously measured approximately 5.3 x 4.0 x 5.8 cm, decreased compared to the prior. There has been interval decreased extent of the inflammatory changes in the surrounding subcutaneous soft tissues. Findings are compatible with interval improvement. 2.Otherwise, no significant change in the MRI appearance of lumbar spine compared to the prior. > Interpreting Provider: Jazzmine Cedeño MD on 02/19/2024 8:33 AM Narrative 02/19/2024 8:33 AM CDT PROCEDURE: MRI LUMBAR SPINE WO CONTRAST, DATE/TIME OF EXAM: 02/16/2024 3:33 PM, LOCATION [facility] INDICATION: Z98.1: S/P lumbar fusion ADDITIONAL CLINICAL INFORMATION: Ordering Provider Reason For Exam: Status post lumbar fusion. Technologist Note: None. Additional: None. EXAMINATION: Magnetic resonance imaging (MRI) of the lumbar spine without contrast TECHNIQUE: MRI of the lumbar spine was performed without contrast according to standard protocol. COMPARISON: CT of the lumbar spine from 01/20/2024. MRI of the lumbar spine from . FINDINGS: The study was performed without contrast. Redemonstration of a small T2 bright fluid collection in the subcutaneous soft tissues of the lower back, at the site of the laminectomy incision for L5-S1 left partial laminectomy, now measuring approximately 1.9 x 1.9 x 4.0 cm, (series 7, image 26, and series 2, image 9), previously measured approximately 5.3 x 4.0 x 5.8 cm, (series 13, image 28, and series 12, image 14 on the prior MRI from ), decreased compared to the prior. The collection is centered adjacent to the spinous processes of L4 and L5. There has been interval decreased extent of the surrounding abnormal signal in the paraspinal and subcutaneous soft tissues of the lower back. Previously seen rind of asymmetric soft tissue enhancement is seen, partially surrounding the thecal sac at this level is less conspicuous and incompletely evaluated on this process study. Redemonstration of abnormal signal at the level of the L5-S1 which is a nonspecific finding and could be degenerative in nature, however, underlying subclinical discitis-osteomyelitis cannot be totally excluded. Continued attention on follow-up recommended. Mild anterolisthesis of L4 on L5. Minimal retrolisthesis of L5 on S1. Minimal levocurvature of the lumbar spine. The alignment is otherwise maintained Schmorl's nodes at multiple levels. Vertebral bodies are normal in height without evidence of compression fractures. Marrow signal intensity is otherwise grossly unremarkable. The conus medullaris terminates at the level of L1-L2 and the distal spinal cord signal intensity is normal. There is mild disc height loss at multiple levels. Atherosclerotic calcification of the abdominal aorta and its branch vessels was seen on the prior CT. Degenerative changes in the sacroiliac joints was also seen on the prior CT. L1-L2: There is mild disc bulge. Minimal hypertrophy of the ligamentum flavum. There is no central canal stenosis. There is mild facet osteoarthritis. There is no high-grade neural foraminal stenosis. L2-L3: There is mild disc bulge. Minimal hypertrophy of the ligamentum flavum. There is no central canal stenosis. There is mild facet osteoarthritis. There is no significant neural foraminal stenosis. L3-L4: There is mild, diffuse disc bulge. Mild hypertrophy of the ligamentum flavum. There is no significant central canal stenosis. There is mild facet osteoarthritis. There is no significant neural foraminal stenosis. There is mild central canal stenosis. There is mild facet osteoarthritis. There is mild bilateral neural foraminal stenosis. L5-S1: There is mild disc bulge, with a suspected small central disc protrusion. Mild hypertrophy of the ligamentum flavum. There is no high-grade central canal stenosis. There is moderate facet osteoarthritis. There is mild to moderate right and severe left neural foraminal stenosis. Procedure Note Jazzmine Cedeño MD - 02/19/2024 PROCEDURE: MRI LUMBAR SPINE WO CONTRAST, DATE/TIME OF EXAM: 02/16/2024 3:33 PM, LOCATION [facility] INDICATION: Z98.1: S/P lumbar fusion ADDITIONAL CLINICAL INFORMATION: Ordering Provider Reason For Exam: Status post lumbar fusion. Technologist Note: None. Additional: None. EXAMINATION: Magnetic resonance imaging (MRI) of the lumbar spinewithout contrast TECHNIQUE: MRI of the lumbar spine was performed without contrastaccording to standard protocol. COMPARISON: CT of the lumbar spine from 01/20/2024. MRI of the lumbarspine from . FINDINGS: The study was performed without contrast. Redemonstration of a small T2 bright fluid collection in thesubcutaneous soft tissues of the lower back, at the site of the laminectomy incisionfor L5-S1 left partial laminectomy, now measuring approximately 1.9 x 1.9 x4.0 cm, (series 7, image 26, and series 2, image 9), previously measured approximately 5.3 x 4.0 x 5.8 cm, (series 13, image 28, and series 12, image 14 on the prior MRI from ), decreased compared to theprior. The collection is centered adjacent to the spinous processes of L4 andL5. There has been interval decreased extent of the surrounding abnormalsignal in the paraspinal and subcutaneous soft tissues of the lower back. Previously seen rind of asymmetric soft tissue enhancement is seen, partially surrounding the thecal sac at this level is less conspicuousand incompletely evaluated on this process study. Redemonstration ofabnormal signal at the level of the L5-S1 which is a nonspecific finding andcould be degenerative in nature, however, underlying subclinical discitis-osteomyelitis cannot be totally excluded. Continued attentionon follow-up recommended. Mild anterolisthesis of L4 on L5. Minimal retrolisthesis of L5 on S1. Minimal levocurvature of the lumbar spine. The alignment is otherwise maintained Schmorl's nodes at multiple levels. Vertebral bodies arenormal in height without evidence of compression fractures. Marrow signal intensity is otherwise grossly unremarkable. The conus medullaris terminates at the level of L1-L2 and the distal spinal cord signal intensity is normal. There is mild disc height loss at multiple levels. Atherosclerotic calcification of the abdominal aorta and its branchvessels was seen on the prior CT. Degenerative changes in the sacroiliac jointswas also seen on the prior CT. L1-L2: There is mild disc bulge. Minimal hypertrophy of the ligamentum flavum. There is no central canal stenosis. There is mild facet osteoarthritis. There is no high-grade neural foraminal stenosis. L2-L3: There is mild disc bulge. Minimal hypertrophy of the ligamentum flavum. There is no central canal stenosis. There is mild facet osteoarthritis. There is no significant neural foraminal stenosis. L3-L4: There is mild, diffuse disc bulge. Mild hypertrophy of the ligamentum flavum. There is no significant central canal stenosis. Thereis mild facet osteoarthritis. There is no significant neural foraminal stenosis. There is mild central canal stenosis. There is mild facetosteoarthritis. There is mild bilateral neural foraminal stenosis. L5-S1: There is mild disc bulge, with a suspected small central disc protrusion. Mild hypertrophy of the ligamentum flavum. There is no high-grade central canal stenosis. There is moderate facetosteoarthritis. There is mild to moderate right and severe left neural foraminal stenosis. IMPRESSION: 1.Redemonstration of resolving surgical site infection, with interval decreased size of T2 bright small fluid collection in the posterior paraspinal soft tissues the lower lumbar spine at the site of thesurgical incision, now measuring approximately 1.9 x 1.9 x 4 cm, previouslymeasured approximately 5.3 x 4.0 x 5.8 cm, decreased compared to the prior. There has been interval decreased extent of the inflammatory changes in the surrounding subcutaneous soft tissues. Findings are compatible with interval improvement. 2.Otherwise, no significant change in the MRI appearance of lumbar spine compared to the prior. > Interpreting Provider: Jazzmine Cedeño MD on 02/19/2024 8:33 AM Dulce Mclaughlin HOUSEKEEPING STAFF-ACCOUNTING TECHNICIAN MR ORDERABLES * CT LUMBAR SPINE W CONTRAST (01/31/2024 12:58 AM CDT) Only the most recent of3 resultswithin the time period is included. Anatomical Region Laterality Modality Spine Computed Tomogra phy 01/31/2024 1:33 AM CDT Impressions 01/31/2024 3:24 AM CDT IMPRESSION: Redemonstrated well-circumscribed fluid collection with peripheral enhancement and surrounding fat stranding at the posterior midline soft tissues at L3 L5 level, measuring 2.7 x 2.5 x 5 cm, not significantly changed from prior study. This may represent an abscess. > Dictated by Raman Anguiano MD (residential instructor) I, Jackie Olmedo MD have personally reviewed and interpreted this examination/study. > Interpreting Provider: Jackie Olmedo MD on 01/31/2024 3:24 AM Narrative 01/31/2024 3:24 AM CDT PROCEDURE: CT LUMBAR SPINE W CONTRAST, DATE/TIME OF EXAM: 01/31/2024 12:58 AM, LOCATION [facility] [place] INDICATION: M54.40: Low back pain with sciatica, sciatica laterality unspecified, unspecified back pain laterality, unspecified chronicity ADDITIONAL CLINICAL INFORMATION: Ordering Provider Reason For Exam: ? lumbar spinal collcetion Technologist Note: Additional: COMPARISON: CT lumbar spine dated 01/28/2024. TECHNIQUE: CT of the lumbar spine were performed to with contrast according to the standard protocol. 100 mL Isovue-370 was administered. FINDINGS: Redemonstrated well-circumscribed fluid collection with peripheral enhancement and surrounding fat stranding at the posterior midline soft tissues at L3 L5 level, measuring 2.7 x 2.5 x 5 cm (series 5 image 113 and series 4 image 45), not significantly changed from prior study. Mild anterolisthesis of L4 on L5 and mild retrolisthesis of L5 on S1. Redemonstrated postsurgical changes from left partial laminectomy at the level of L5-S1. Redemonstrated deep Schmorl's nodes at L2 and L3 superior endplates with mild height loss, unchanged. There is severe disc degeneration at L5-S1 with vacuum phenomenon at mild degenerative disc changes at other levels.. Mild central canal stenosis and right-sided neural foramina stenosis at L4-L5 due to diffuse disc bulge. There are varying degrees of mild to moderate facet osteoarthritis. Procedure Note Jackie Olmedo MD - 01/31/2024 PROCEDURE: CT LUMBAR SPINE W CONTRAST, DATE/TIME OF EXAM: 412:58 AM, LOCATION [facility] [place] INDICATION: M54.40: Low back pain with sciatica, sciatica laterality unspecified, unspecified back pain laterality, unspecified chronicity ADDITIONAL CLINICAL INFORMATION: Ordering Provider Reason For Exam: ? lumbar spinal collcetion Technologist Note: Additional: COMPARISON: CT lumbar spine dated 01/28/2024. TECHNIQUE: CT of the lumbar spine were performed to with contrastaccording to the standard protocol. 100 mL Isovue-370 was administered. FINDINGS: Redemonstrated well-circumscribed fluid collection with peripheral enhancement and surrounding fat stranding at the posterior midline soft tissues at L3 L5 level, measuring 2.7 x 2.5 x 5 cm (series 5 image 113and series 4 image 45), not significantly changed from prior study. Mild anterolisthesis of L4 on L5 and mild retrolisthesis of L5 on S1. Redemonstrated postsurgical changes from left partial laminectomy at the level of L5-S1. Redemonstrated deep Schmorl's nodes at L2 and [id number] endplates with mild height loss, unchanged. There is severe disc degeneration at L5-S1 with vacuum phenomenon atmild degenerative disc changes at other levels.. Mild central canal stenosisand right-sided neural foramina stenosis at L4-L5 due to diffuse disc bulge. There are varying degrees of mild to moderate facet osteoarthritis. IMPRESSION: Redemonstrated well-circumscribed fluid collection with peripheral enhancement and surrounding fat stranding at the posterior midline soft tissues at L3 L5 level, measuring 2.7 x 2.5 x 5 cm, not significantly changed from prior study. This may represent an abscess. > Dictated by Raman Anguiano MD (residential instructor) I, Jackie Olmedo MD have personally reviewed and interpreted this examination/study. > Interpreting Provider: Jackie Olmedo MD on 01/31/2024 3:24 AM [address] Hall MD CT ORDERABLES * C-REACTIVE PROTEIN (01/30/2024 9:36 PM CDT) Only the most recent of6 resultswithin the time period is included. C-Reactive Protein <0.5 <=0.5 mg/dL 01/30/2024 10:38 PM CDT [facility] Blood BLOOD SPECIMEN / Unknown Venipuncture / Unknown 01/30/2024 9:36 PM CDT 01/30/2024 10:14 PM CDT Jorge Hall MD LAB - CHEMISTRY ORDE RABKRISTIN [address] [address], [facility] [phone] * (ABNORMAL) ERYTHROCYTE SEDIMENTATION RATE (01/30/2024 9:36 PM CDT) Only the most recent of6 resultswithin the time period is included. [facility] Erythrocyte Sedimentation Rate Westergren 29(H) 0 - 20 MM/HR 01/30/2024 10:33 PM CDT [facility] Blood BLOOD SPECIMEN / Unknown Venipuncture / Unknown 01/30/2024 9:36 PM CDT 01/30/2024 10:14 PM CDT Jorge Hall MD LAB - HEMATOLOGY ORD ERABLES [address] [address], [place] [phone] * CULTURE BLOOD (01/28/2024 8:08 AM CDT) Only the most recent of7 resultswithin the time period is included. [facility] Culture No growth day 5 DESHAWN 02/02/2024 10:30 AM CDT [facility] Blood PERIPHERAL BLOOD / Unknown Venipuncture / Unknown 01/28/2024 8:08 AM CDT 01/28/2024 8:15 AM CDT Jeffrey Morales MD LAB - MICROBIOLOGY O RDERABLES Performing Organization Address City/[facility] Co de Phone Number [facility] [address] [place] [address], [facility] [phone] * (ABNORMAL) PTT [facility] (01/28/2024 5:33 AM CDT) Only the most recent of4 resultswithin the time period is included. APTT 22.4(L) 23.0 - 38.4 Seconds 01/28/2024 5:57 AM CDT [facility] Comment:Suggested therapeuti c range for full dose I.V. unfractionated heparin therapy for venous thromboembolism is 71 to 109 seconds. Blood BLOOD SPECIMEN / Unknown Venipuncture / Unknown 01/28/2024 5:33 AM CDT 01/28/2024 5:36 AM CDT Jeffrey Morales MD LAB - COAGULATION OR DERABLES Performing Organization Address [facility] Co de Phone Number [facility] [address] [place] [address], [facility] [phone] * HCG BETA BLOOD QUANTITATIVE (01/28/2024 1:17 AM CDT) Only the most recent of2 resultswithin the time period is included. Pathologist [facility] Beta-hCG Total Quantitative 3 mIU/mL 01/28/2024 2:12 AM CDT [facility] Comment: HCG Numeric Result Interpretation: Non- Females: < 5 mIU/mL Post-Menopausal Females: < 7 mIU/mL This assay is cleared for use in the early detection of only. It is not approved for any other uses such as tumor marker screening, tumor marker monitoring, etc. and should not be used for any other purposes. Blood BLOOD SPECIMEN / Unknown Venipuncture / Unknown 01/28/2024 1:17 AM CDT 01/28/2024 1:25 AM CDT Tari Fair MD LAB - CHEMISTRY SCOTT MANUEL Performing Organization Address City/[facility]/ZIP Co de Phone Number [place] [id number] [place] [address], [facility] [phone] * XR CHEST 2VW (01/07/2024 9:03 PM CDT) Anatomical Region Laterality Modality Chest Radiographic Aliyah ging 01/07/2024 9:25 PM CDT Impressions 01/08/2024 10:46 AM CDT IMPRESSION: No acute pulmonary process. Report dictated by Nathan Michelle MD, (executive vice president of sales). Monik Sewell MD have personally reviewed and interpreted this examination/study. > Interpreting Provider: Monik Heredia MD on 01/08/2024 10:46 AM Narrative 01/08/2024 10:46 AM CDT PROCEDURE: XR CHEST 2VW, DATE/TIME OF EXAM: 01/07/2024 9:03 PM, LOCATION [facility] [place] INDICATION: R07.9: Chest pain, unspecified type ADDITIONAL CLINICAL INFORMATION: Ordering Provider Reason For Exam: r/o pneumonia, effusion COMPARISON: Chest radiograph dated 07/11/2014. FINDINGS: *Left upper extremity PICC terminates in the SVC. There is no focal consolidation, pleural effusion, or pneumothorax. The superior mediastinal contours and cardiac silhouette are normal. No acute osseous abnormality. Procedure Note Monik Heredia MD - 01/08/2024 PROCEDURE: XR CHEST 2VW, DATE/TIME OF EXAM: 01/07/2024 9:03 PM, LOCATION [facility] [place] INDICATION: R07.9: Chest pain, unspecified type ADDITIONAL CLINICAL INFORMATION: Ordering Provider Reason For Exam: r/o pneumonia, effusion COMPARISON: Chest radiograph dated 07/11/2014. FINDINGS: *Left upper extremity PICC terminates in the SVC. There is no focal consolidation, pleural effusion, or pneumothorax. The superior mediastinal contours and cardiac silhouette are normal. No acute osseous abnormality. IMPRESSION: No acute pulmonary process. Report dictated by Nathan Michelle MD, (executive vice president of sales). Monik Sewell MD have personally reviewed and interpreted this examination/study. > Interpreting Provider: Monik Heredia MD on 01/08/2024 10:46 AM Zeinab Taylor HOUSEKEEPING STAFF-ACCOUNTING TECHNICIAN DIAGNOSTIC I MAG[place] ORDERABLES * HCG BLOOD QUALITATIVE (01/01/2024 2:54 PM CDT) [facility] HCG Qual Serum Negative Negative 01/01/2024 3:15 PM CDT [facility] Blood BLOOD SPECIMEN / Unknown Venipuncture / Unknown 01/01/2024 2:54 PM CDT 01/01/2024 3:01 PM CDT Narrative [facility] - 01/01/2024 3:15 PM CDT Specimens containing human anti-mouse antibodies may exhibit false positive or false negative results. If qualitative interpretation is inconsistent with clinical evaluation, consider confirmation by an alternative hCG method. Shari Barrera PA-C LAB - CHEMISTRY [place] [phone] * VANCOMYCIN LEVEL RANDOM (12/31/2023 7:27 AM CDT) [facility] Vancomycin Random 9.8 Therapeutic Ranges not established for random specimens ug/mL 12/31/2023 7:59 AM CDT [facility] Blood BLOOD SPECIMEN / Unknown Venipuncture / Unknown 12/31/2023 7:27 AM CDT 12/31/2023 7:32 AM CDT Narrative [facility] - 12/31/2023 7:59 AM CDT See institution protocol. Ana Blue MD LAB - CHEMISTRY SCOTT MANU[place] [facility] [address] [place] [address], [facility] [phone] * (ABNORMAL) CBC W/O DIFFERENTIAL (12/26/2023 8:42 AM CDT) Only the most recent of4 resultswithin the time period is included. [facility] WBC 4.5 4.0 - 10.7 x10E9/L 12/26/2023 9:23 AM CDT [facility] RBC Count 3.73(L) 3.90 - 5.20 x10E12/L 12/26/2023 9:23 AM [facility] Hemoglobin 10.4(L) 11.9 - 15.8 g/dL 12/26/2023 9:23 AM [facility] Hematocrit 31.9(L) 34.8 - 46.1 % 12/26/2023 9:23 AM [facility] MCV 85.5 80.0 - 98.0 fL 12/26/2023 9:23 AM [facility] MCH 27.9 26.7 - 33.6 pg 12/26/2023 9:23 AM [facility] MCHC 32.6 31.7 - 36.3 g/dL 12/26/2023 9:23 AM [facility] RDW-CV 14.3 11.3 - 14.8 % 12/26/2023 9:23 AM [facility] Platelet Count 224 150 - 420 x10E9/L 12/26/2023 9:23 AM [facility] MPV 9.7 7.8 - 11.4 fL 12/26/2023 9:23 AM [facility] Blood BLOOD SPECIMEN / Unknown Venipuncture / Unknown 12/26/2023 8:42 AM CDT 12/26/2023 8:52 AM CDT Lorraine Zee MD LAB - HEMATOLOGY OR DERABLES Performing Organization Address [facility]/State/[facility] Co de Phone Number [address] [address], [facility] [phone] * (ABNORMAL) RENAL FUNCTION PANEL (12/26/2023 6:25 AM CDT) Only the most recent of2 resultswithin the time period is included. BUN 10 7 - 26 mg/dL 12/26/2023 7:23 AM [facility] Creatinine 0.65 0.56 - 0.96 mg/dL 12/26/2023 7:23 AM [facility] Sodium 139 136 - 145 mmol/L 12/26/2023 7:23 AM [facility] Potassium 4.4 3.5 - 4.5 mmol/L 12/26/2023 7:23 AM [facility] Chloride 107 98 - 107 mmol/L 12/26/2023 7:23 AM [facility] CO2 26 22 - 29 mmol/L 12/26/2023 7:23 AM [facility] Glucose 78 70 - 115 mg/dL 12/26/2023 7:23 AM [facility] Albumin 3.1(L) 3.4 - 5.0 g/dL 12/26/2023 7:23 AM [facility] Calcium 8.5 8.4 - 10.2 mg/dL 12/26/2023 7:23 AM [facility] Phosphorus 4.0 2.9 - 5.1 mg/dL 12/26/2023 7:23 AM [facility] Anion Gap 6 6 - 16 12/26/2023 7:23 AM [facility] BUN/Creatinine Ratio 15 7 - 23 12/26/2023 7:23 AM [facility] Osmolality Calculated 286 275 - 295 mOsm/kg 12/26/2023 7:23 AM [facility] eGFR by CKD-EPI >90 >=90 mL/min/1.7 3 m2 12/26/2023 7:23 AM [facility] Blood BLOOD SPECIMEN / Unknown Venipuncture / Unknown 12/26/2023 6:25 AM CDT 12/26/2023 6:39 AM CDT Lorraine Zee MD LAB - CHEMISTRY ORD ERABLES Performing Organization Address City/State/[facility] Co de Phone Number [facility] [address] [place] [address], [facility] [phone] * PATHOLOGY TISSUE (12/24/2023 3:52 PM CDT) Case Report Surgical Pathology Report Case: [id number] Authorizing Provider: Carole Nuñez DO Collected: 12/24/2023 03:52 PM Ordering Location: [facility] ENDOSCOPY Received: 12/24/2023 04:41 PM Pathologist: Terra Wu MD Specimen: Gastric, Random Gastric Biopsies R/O H. Pylori 12/26/2023 12:18 PM [facility] Final Diagnosis Stomach, random, biopsy (A): - Chronic active gastritis with H. pylori organisms 12/26/2023 12:18 PM [facility] Microscopic Description and Comment Microscopic examination substantiates the final diagnosis. 12/26/2023 12:18 PM [facility] Clinical History The patient is a 43-year-old woman with hematemesis. Operative procedure/findings: VFK-Sjnb-yx-Y anastomosis was found, characterized by healthy-appearing mucosa and intact staple line. Biopsied for H. pylori 12/26/2023 12:18 PM [facility] Gross Description The requisition and specimen(s) are identified with the patient's name, Bharat Mcpherson. Received in formalin, specimen A , are multiple mills-pink tissue fragments, 0.1-0.3 cm, 0.5 x 0.3 x 0.1 cm in aggregate , submitted in toto in cassette A1. IKD 12/26/2023 12:18 PM [facility] Pathologist Location at [facility] 12/26/2023 12:18 PM [address] [facility] Disclaimer The performance characteristics of all immunohistochemical and indirect immunofluorescence stains (if any) cited in this report were determined by the Histopathology Laboratory of [facility]. Some of these tests were developed by our own laboratory and have not been cleared or approved by the US Food and Drug Administration. The FDA does not require this test to go through premarket FDA review. These tests are used for clinical purposes. They should not be regarded as investigational or for research. This laboratory is certified under the Clinical Laboratory Improvement Amendments (CLIA) as qualified to perform high complexity clinical laboratory testing. This case has been personally reviewed and interpreted by the attending (teaching) pathologist. 12/26/2023 12:18 PM [facility] Embedded Images 12/26/2023 12:18 PM [facility] Biopsy, NOS GASTRIC CONTENTS SPECIMEN / Unknown 12/24/2023 3:52 PM CDT 12/24/2023 4:41 PM CDT Comment:Pre-op diagnosis: Hematemesis Carole Savannah [facility] - PATHOLOGY/CYTO LOGY ORDERABLES [facility] [address] [phone] * ETT LINE PERFORMABLE (12/24/2023 3:39 PM CDT) Narrative Sulma Zhong MD - 12/24/2023 3:39 PM CDT Sulma Zhong MD 12/25/2023 3:53 PM Endotracheal Tube Placement: Intubation Event Date/Time: 12/24/2023 3:33 PM Procedure: intubation ([id number]). Procedure Section: Sedation: under general anesthesia. Indications for Airway Management: anesthesia Procedure pretreatments used? No Induction: rapid sequence Patient Position: sniffing Mask Ventilation: easy. Blade Type: Video Blade Size: 3 Laryngoscopy View: grade 1 (full cords) Intubation Adjuncts: cricoid pressure and stylet Tube: endotracheal tube Placement: oral Tube type: cuff - inflated Tube Size (FR): 7 Depth of Insertion (CM): 22 Measured From: lips Cuff Inflated With: air Number of Attempts: 1. Placement Verified By: direct visualization, bilateral breath sounds, chest auscultation and CO2 monitor CXR Findings: ETT in proper place. Tube secured with: adhesive tape. Dentition unchanged? Yes Difficult Airway? No. Procedure Start Time: 12/24/2023 3:33 PM. Staff Section Anesthesia Provider: Susanna Reza APRN-VALERIANO, Performed the procedure Sulma Zhong MD GENERAL ANESTHESIA O RDERABLES * EGD (12/24/2023 3:19 PM CDT) Report Endoscopy POC Endoscopy Department Report _ Patient Name: Bharat Mcpherson Procedure Date: 12/24/2023 3:19 PM Date of : 1980 Classification: Inpatient Gender: Female Ethnicity: Not or Race: White _ Providers: DO Sravani Beaver MD: Procedure: Upper GI endoscopy Indications: Hematemesis Medications: General Anesthesia Description of Procedure: Pre-Anesthesia Assessment: - Prior to the procedure, a History and Physical was performed, and patient medications and allergies were reviewed. The patient's tolerance of previous anesthesia was also reviewed. The risks and benefits of the procedure and the sedation options and risks were discussed with the patient. All questions were answered, and informed consent was obtained. Prior Anticoagulants: The patient has taken no anticoagulant or antiplatelet agents. ASA Grade Assessment: II - A patient with mild systemic disease. After reviewing the risks and benefits, the patient was deemed in satisfactory condition to undergo the procedure. After obtaining informed consent, the endoscope was passed under direct vision. Throughout the procedure, the patient's blood pressure, pulse, and oxygen saturations were monitored continuously. The Endoscope was introduced through the mouth, and advanced to the second part of duodenum. The upper GI endoscopy was accomplished without difficulty. The patient tolerated the procedure well. Findings: The examined esophagus was normal. The Z-line was regular. Imaging was performed using zoom magnification, white light and narrow band imaging to visualize the mucosa. Evidence of a Janell-en-Y anastomosis was found in the stomach. This was characterized by healthy appearing mucosa and an intact staple line. Biopsies were taken with a cold forceps for Helicobacter pylori testing. The examined jejunum was normal. Estimated Blood Loss: Estimated blood loss: none. Complications: No immediate complications. Impression: - Normal esophagus. Z-line regular. - A Janell-en-Y anastomosis was found, characterized by healthy appearing mucosa and an intact staple line. Biopsied for h.pylori. Small erythema around the staple. - Normal examined jejunum. Recommendation: - Return patient to [facility] for ongoing care. - Resume regular diet. - Continue present medications. - Await pathology results. Procedure Code(s): --- Professional --- 39299, Esophagogastroduo denoscopy, flexible, transoral; with biopsy, single or multiple Diagnosis Code(s): --- Professional --- Z98.84, Bariatric surgery status K92.0, Hematemesis CPT copyright 2021 [employer] [place] [employer]. All rights reserved. The codes documented in this report are preliminary and upon environmental studies department chair review may be revised to meet current compliance requirements. Carole Nuñez DO 12/24/2023 4:16:05 PM This report has been signed electronically. Note Initiated On: 12/24/2023 3:19 PM Number of Addenda: [id number] [place] [address] PROVATION 12/24/2023 3:19 PM CDT Carole Nuñez DO GI PROCEDURE ORDERAB LES [facility] [employer]OVATION * EKG 12-LEAD (12/23/2023 3:58 PM CDT) Only the most recent of9 resultswithin the time period is included. Ventricular Rate 87 BPM [facility] Atrial Rate 87 BPM H MUSE P-R Interval 138 ms [facility] QRS Duration ms 86 ms [facility] Q-T Interval ms 346 ms [facility] QTC Calculation (Bezet) 416 ms [facility] Calculated P [place] 18 degrees [facility] Calculated R [place] 40 degrees [facility] Calculated T [place] 24 degrees [facility] Interpretation EKG NORMAL SINUS RHYTHM NORMAL ECG WHEN COMPARED WITH ECG OF 12-DEC-2023 15:08, NO SIGNIFICANT CHANGE WAS FOUND Confirmed by fellow MASSIEL FARAH MD ([id number]) on 12/25/2023 3:54:05 PM Confirmed by SILVER STEPHENSON MD ([id number]) on 12/28/2023 9:26:09 PM [facility] 12/23/2023 3:58 PM CDT 12/28/2023 9:26 PM CDT Saji Bean MD ECG ORDERABLES [facility] * VANCOMYCIN LEVEL TROUGH (12/17/2023 1:21 AM CDT) Only the most recent of2 resultswithin the time period is included. Vancomycin Trough 13.2 10.0 - 20.0 ug/mL 12/17/2023 2:06 AM CDT [facility] Blood BLOOD SPECIMEN / Unknown Lab Venipuncture / Unknown 12/17/2023 1:21 AM CDT 12/17/2023 1:38 AM CDT Narrative [facility] - 12/17/2023 2:06 AM CDT See institution protocol. Genesis Alejandro MD LAB - CHEMISTRY ORDE KALEB Performing Organization Address City/[facility]/ZIP Co de Phone Number [address] [address], [facility] [phone] * IR PICC LINE INSERT (12/16/2023 1:04 PM CDT) Anatomical Region Laterality Modality Chest, Upper Extremity Other Narrative 12/16/2023 1:33 PM CDT Christine Colunga RN 12/16/2023 1:36 PM Department of Interventional Radiology Procedure Note: PICC line placement History: Bharat Mcpherson is a 43 yo female with chronic back pain, seizures, and L hemilaminectomy/foraminotomy 11/18 who is presenting with acute back pain and 1.5 weeks of drainage from surgical site and found to have surgical site infection Indication: IV antibiotic therapy Tube Heater: Christine Colunga RN Procedures: 1. Limited extremity ultrasound to assess vascular patency 2. Ultrasound guided access of the Left brachial vein. 3. Placement of peripherally inserted central line with magnetic tracking and ECG tip positioning system ([email or web address]). Anesthesia: Local anesthesia with 4mL of 1% Lidocaine without epinephrine Procedure in detail: Type of line placed: Dual Lumen Power PICC The risks and benefits of PICC placement were explained to Patient. The risks include discussed include pain, inadvertent arterial puncture, infection, blood clots, phlebitis, and cardiac arrhythmias. They were able to consent to the PICC insertion. Timeout and hand hygiene completed prior to procedure. Traffic was limited in the room during the procedure. Skin prepped with appropriate antibacterial solution prior to skin puncture. Maximum sterile barrier precautions were used including sterile gown and gloves, hat, mask, eye protection and a large sterile drape. Limited ultrasound of the the brachial vein demonstrated patent and compressible vein. A nails scale image was documented. The patient was given local anesthesia with 4 milliliters of 1% Lidocaine without epinephrine. The brachial vein was accessed using a micropuncture needle. The needle entry was documented. A 0.018-inch guidewire was then advanced centrally. A small dermatotomy was made at the puncture site, and then the peel-away sheath was advanced into the vein. The length of the catheter was assessed with magnetic tracking and ECG tip positioning system. The PICC line pre-loaded with magnetic tip was then introduced through the peel-away sheath and advanced to the right atrium near the cavoatrial junction. The double lumen PICC was placed using the Seldinger technique with a Left Brachial approach without complication. There was dark, non-pulsatile blood return in all ports and they were easily flushed with saline. The tip of the catheter was guided by the magnetic tracking and ECG tip positioning system ([employer]), The peel-away sheath was removed, and the PICC was secured to the skin with a engineered securement device. An overlying dressing was placed. PICC tip position was verified by ultrasound 3 CG device. This showed PICC tip in good position in the distal SVC. Reposition of the PICC was not indicated. The patient tolerated the procedure well. Patient Guide Booklet and Fact Sheet for preventing infection placed in chart for discharge packet. Reviewed with: patient Complications: none. All the ports were aspirated and flushed to assure patency. The patient tolerated this procedure without apparent immediate complication. Impression: Successful placement of 50 cm PICC Fr: 4 F double lumen power PICC via the Left brachial vein with tip in the cavo-atrial junction. The procedure was performed by Christine Colunga RN. The final image was reviewed by , Interventional Radiology Attending- Tito Gonzalez MD The catheter can be used now. Genesis Alejandro MD IR ORDERABLES * VANCOMYCIN LEVEL PEAK (12/13/2023 9:31 PM CDT) Vancomycin Peak 31.4 25.0 - 40.0 ug/mL 12/13/2023 10:24 PM CDT [facility] Blood BLOOD SPECIMEN / Unknown Lab Venipuncture / Unknown 12/13/2023 9:31 PM CDT 12/13/2023 9:51 PM CDT Narrative [facility] - 12/13/2023 10:24 PM CDT See institution protocol. Data does not support the use of vancomycin peak concentration for efficacy. Quinn Bryan MD LAB - CHEMISTRY ORD ERABLES [address] [address], [facility] [phone] * CULTURE ANAEROBE (12/13/2023 3:54 PM CDT) Only the most recent of2 resultswithin the time period is included. Culture No anaerobic organisms isolated DESHAWN 12/18/2023 1:38 PM CDT [facility] MICROBIOLOGY Microbiology SPECIMEN FROM ABSCESS / Unknown Collection / Unknown 12/13/2023 3:54 PM CDT 12/13/2023 4:03 PM CDT Genesis Alejandro MD LAB - MICROBIOLOGY O RDERABLES [facility]CROBI[facility] [address] [place] [address], [facility] [phone] * CULTURE WOUND+GRAM STAIN (12/13/2023 3:51 PM CDT) Culture No growth DESHAWN 12/16/2023 2:39 AM CDT [facility]CRO[facility] Gram Stain Rare Polymorphonuclear cells 12/16/2023 2:39 AM CDT [facility] Gram Stain No organisms seen 024 2:39 AM CDT [facility]CRO[facility] Microbiology SPECIMEN FROM WOUND / Unknown Collection / Unknown 12/13/2023 3:51 PM CDT 12/13/2023 4:03 PM CDT Fahad Monzon MD LAB - MICROBIOLO GY ORDERABLES [facility]CROBI[facility] [address] [place] [address], [facility] [phone] * CULTURE AFB+SMEAR (12/13/2023 3:51 PM CDT) Only the most recent of2 resultswithin the time period is included. Culture No acid-fast bacillus isolated 01/20/2024 9:08 AM CDT [facility]CROBI[facility] AFB Smear No acid-fast bacilli seen 01/20/2024 9:08 AM CDT [facility] MICROBIOLOGY Microbiology SPECIMEN FROM WOUND / Unknown Collection / Unknown 12/13/2023 3:51 PM CDT 12/13/2023 4:03 PM CDT Fahad Monzon MD LAB - MICROBIOLO GY ORDERABLES Performing Organization Address City/[facility]/ZIP Co de Phone Number [facility] [address] [place] [address], [facility] [phone] * CULTURE FLUID+GRAM STAIN (12/13/2023 3:26 PM CDT) Culture No growth DESHAWN 12/17/2023 6:42 AM CDT [facility] MICROBIOLOG[facility] Gram Stain Rare Polymorphonuclear cells 12/17/2023 6:42 AM CDT [facility] MICROBIOLOG[facility] Gram Stain No organisms seen 024 6:42 AM CDT [facility] MICROBIOLOG[facility] Fluid BODY FLUID SPECIMEN / Unknown Collection / Unknown 12/13/2023 3:26 PM CDT 12/13/2023 4:03 PM CDT Genesis Alejandro MD LAB - MICROBIOLOGY O RDERABLES [facility]CROBI[facility] [address] [place] [address], [facility] [phone] * ETT LINE PERFORMABLE (12/13/2023 3:16 PM CDT) Narrative Jin Espinal Anes Asst - 12/13/2023 3:16 PM CDT Jin Espinal Anes Assying 12/13/2023 3:17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 Pulmonary Hypertension program Division of Pulmonary ,Critical care and Sleep medicine [facility]. Belen Tesfaye MD RESPIRATORY THERAPY ORDERABLES [facility] * CHROMATIN ANTIBODY (04/30/2013 7:30 PM CDT) [facility] Antichromatin Antibody IgG <0.2 0.0 - 0.9 AI [facility] Comment: Performed at: - Lab[address] [id number] Rounding Machine Operator: Emiliano Krishnan MD, Phone: [phone] Performed at: [facility] [address] [id number] Rounding Machine Operator: Best Macdonald PhD, Phone: [phone] 04/30/2013 7:30 PM CDT 04/30/2013 8:09 PM CDT [facility] - 05/04/2013 11:22 AM CDT HT [id number] 1 TUBE Belen Tesfaye MD LAB - SEROLOGY ORDER DAX Performing Organization Address City/[facility]/ZIP Co de Phone Number [address] [phone] * DENISE BLOOD SCREEN (04/30/2013 7:30 PM CDT) [facility] DENISE NONE DETECTED NONE DETECT [facility] Venous blood specimen (specimen) 04/30/2013 7:30 PM CDT 04/30/2013 8:09 PM CDT Narrative [facility] - 05/04/2013 2:49 PM CDT HT [id number] 1 TUBE Belen Tesfaye MD LAB - CHEMISTRY ORDE RABLES Performing Organization Address City/[facility]/ZIP Co de Phone Number [address] [phone] * LUPUS ANTICOAGULANT PANEL (04/30/2013 7:30 PM CDT) [facility] APTT 29.5 24.0 - 38.0 SECONDS [facility] PT 12.2 12.1 - 14.8 SECONDS [facility] INR 0.9 [facility] STACLOT-LA Buffer 53.0 SECONDS [facility] STACLOT-LA Phospholipid 49.3 SECONDS [facility] STACLOT LA Delta Seconds 3.7 <9.0 SECONDS [facility] Interpretation STACLOT-LA NEGATIVE NEGATIVE [facility] Comment: Up to 15-20% of patients with lupus anticoagulant associated with antiphospholipid antibody syndrome (APAS) will have negative STACLOT-LA results. For these patients we recommend additional testing to include the Dilute Britton Viper Venom Time (DRVVT) and dilute prothrombin time (Dilute PT) tests. Immunoassay measurements of anti-cardiolipin and anti-beta-2 glycoprotein 1 are recommended if the DRVVT, DIL-PT and STACLOT-LA tests are negative and there is clinical suspicion of APAS. Venous blood specimen (specimen) 04/30/2013 7:30 PM CDT 04/30/2013 8:09 PM CDT Narrative [facility] - 05/01/2013 10:08 AM CDT HT [id number] 1 TUBE Belen Tesfaye MD LAB - HEMATOLOGY ORD ERABLES Performing Organization Address City/[facility]/ZIP Co de Phone Number [address] [phone] * ELENA (SM) ANTIBODY FRANKO (04/30/2013 7:30 PM CDT) FRANKO Elena (SM) Antibody 1.3 0.0 - 19.9 Units [facility] Comment: REFERENCE RANGE/INTERPRETATION < 20.0 Units: Negative 20.0 - 39.0 Units: Weak Positive > 39.0 Units: Positive 04/30/2013 7:30 PM CDT 04/30/2013 8:09 PM CDT Narrative [facility] - 05/04/2013 2:49 PM CDT HT [id number] 1 TUBE Belen Tesfaye MD LAB - CHEMISTRY ORDE KALEB [address] [phone] * DIRECTOR PHARMACEUTICAL ANTIBODY (04/30/2013 7:30 PM CDT) Ribonucleic Protein Antibody 1.7 0.0 - 19.9 Units [facility] Comment: REFERENCE RANGE/INTERPRETATION < 20.0 Units: Negative 20.0 - 39.0 Units: Weak Positive > 39.0 Units: Positive 04/30/2013 7:30 PM CDT 04/30/2013 8:09 PM CDT Narrative [facility] - 05/06/2013 1:50 PM CDT HT [id number] 1 TUBE Belen Tesfaye MD LAB - CHEMISTRY SCOTT MANUEL Performing Organization Address City/[facility]/ZIP Co de Phone Number [address] [phone] * RHEUMATOID FACTOR BLOOD QUANTITATIVE (04/30/2013 7:30 PM CDT) Rheumatoid Factor < 15 <30 IU/mL [facility] Venous blood specimen (specimen) 04/30/2013 7:30 PM CDT 04/30/2013 8:10 PM CDT Belen Tesfaye MD LAB - CHEMISTRY SCOTT MANUEL Performing Organization Address [facility] [place] [address], [facility] [phone] * (ABNORMAL) COMPLEMENT TOTAL (04/30/2013 7:30 PM CDT) Pathologist [facility] Complement Total CH50 < 12(L) 22 - 60 U/mL [facility] Venous blood specimen (specimen) 04/30/2013 7:30 PM CDT 04/30/2013 8:09 PM CDT Narrative [facility] - 05/04/2013 3:31 PM CDT HT [id number] 1 TUBE Belen Tesfaye MD LAB - CHEMISTRY SCOTT MANUEL Performing Organization Address City/[facility]/ZIP Co de Phone Number [address] [phone] * SS-B (SJOGRENS'S) ANTIBODY (04/30/2013 7:30 PM CDT) SS-B LA Antibody 0.7 0.0 - 19.9 Units [facility] Comment: REFERENCE RANGE/INTERPRETATION < 20.0 Units: Negative 20.0 - 39.0 Units: Weak Positive > 39.0 Units: Positive Venous blood specimen (specimen) 04/30/2013 7:30 PM CDT 04/30/2013 8:09 PM CDT Narrative [facility] - 05/04/2013 2:49 PM CDT HT [id number] 1 TUBE Belen Tesfaye MD LAB - CHEMISTRY SCOTT MANUEL [address] [phone] * SS-A (SJOGREN'S) ANTIBODY (04/30/2013 7:30 PM CDT) SS-A Antibody 0.6 0.0 - 19.9 Units [facility] Comment: REFERENCE RANGE/INTERPRETATION < 20.0 Units: Negative 20.0 - 39.0 Units: Weak Positive > 39.0 Units: Positive Venous blood specimen (specimen) 04/30/2013 7:30 PM CDT 04/30/2013 8:09 PM CDT [facility] - 05/04/2013 2:49 PM CDT HT [id number] 1 TUBE Belen Tesfaye MD LAB - CHEMISTRY SCOTT MANUEL [address] [phone] * SCLERODERMA 70 (SCL) ANTIBODY (04/30/2013 7:30 PM CDT) SCL-70 Antibody 1.1 0.0 - 19.9 Units [facility] Comment: REFERENCE RANGE/INTERPRETATION < 20.0 Units: Negative 20.0 - 39.0 Units: Weak Positive > 39.0 Units: Positive 04/30/2013 7:30 PM CDT 04/30/2013 8:09 PM CDT Narrative [facility] - 05/04/2013 2:49 PM CDT HT [id number] 1 TUBE Belen Tesfaye MD LAB - CHEMISTRY ORDJulio MANUEL Performing Organization Address City/[facility]/ZIP Co de Phone Number [address] [phone] * DNA ANTIBODY DOUBLE STRANDED (04/30/2013 7:30 PM CDT) Anti-dsDNA Quantitative 4 0 - 29 IU/mL [facility] Comment: INTERPRETATION/REFERENCE RANGE 0 - 29 IU/mL: NEGATIVE 30 - 75 IU/mL: BORDERLINE >75 IU/mL: POSITIVE 04/30/2013 7:30 PM CDT 04/30/2013 8:09 PM CDT Narrative [facility] - 05/04/2013 2:49 PM CDT HT [id number] 1 TUBE Belen Tesfaye MD LAB - HEMATOLOGY ORD ERABLES Performing Organization Address [facility]/ZIP Co de Phone Number [address] [phone] * ALDOLASE (04/30/2013 7:30 PM CDT) Aldolase 6.8 1.2 - 7.6 U/L [facility] Comment: Performed at: - [address] [id number] Rounding Machine Operator: Best Macdonald PhD, Phone: [phone] 04/30/2013 7:30 PM CDT 04/30/2013 8:09 PM CDT Narrative [facility] - 05/04/2013 3:31 PM CDT HT [id number] 1 TUBE Belen Tesfaye MD LAB - CHEMISTRY ORDJulio MANUEL Performing Organization Address [facility]/ZIP Co de Phone Number [address] [phone] * CYCLIC CITRUL PEPTIDE AB IGG (CCP) (04/30/2013 7:30 PM CDT) CCP Antibody IgG 1.5 0.5 - 5.0 U/mL [facility] 04/30/2013 7:30 PM CDT 04/30/2013 8:10 PM CDT Belen Tesfaye MD LAB - CHEMISTRY SCOTT MANUEL Performing Organization Address [facility] Co de Phone Number [address] [phone] * QUANTIFERON TB-GOLD (04/30/2013 7:30 PM CDT) QuantiFERON TB Gold . [facility] Comment: Test cancelled at client's request. Cancell test per Sch[facility] at your facility 05/06/13. !! EDITED OR CORRECTED RESULTS !! RESULT PREVIOUSLY REPORTED : The QuantiFERON TB Gold (in Tube) assay is intended for use as an aid in the diagnosis of TB infection. Negative results suggest that there is no TB infection. In patients with high suspicion of exposure, a negative test should be repeated. A positive test indicates infection with Mycobacterium tuberculosis. Among individuals without tuberculosis infection, a positive test may be due to exposure to M. kansasii, M. szulgai or M. marinum. On the Internet, go to cdc.gov/tb for further details. The specimen received for QuantiFERON testing was incubated by the ordering institution. Specific procedures outlined in our Directory of Services and in the package insert for the QuantiFERON Gold (In Tube) test must be followed to enable for proper stimulation of cells for the production of interferon gamma. NOTIFIED [] AT 1130 ON 05/06/13 04/30/2013 7:30 PM CDT 04/30/2013 8:09 PM CDT Narrative [facility] - 05/06/2013 11:30 AM CDT [id number] 1 TUBE Belen Tesfaye MD LAB - CHEMISTRY SCOTT MANUEL Performing Organization Address [facility]/ZIP Co de Phone Number [address] [address], [place] [phone] * COMPLEMENT C4 (04/30/2013 7:30 PM CDT) Complement C4 30 15 - 57 mg/dL [facility] Venous blood specimen (specimen) 04/30/2013 7:30 PM CDT 04/30/2013 8:09 PM CDT Narrative [facility] - 04/30/2013 9:58 PM CDT HT [id number] 1 TUBE Belen Tesfaye MD LAB - SEROLOGY ORDER DAX [address] [phone] * (ABNORMAL) LDH BLOOD (04/30/2013 7:30 PM CDT) LDH Total 352(H) 125 - 243 Units/L [facility] Serum 04/30/2013 7:30 PM CDT 04/30/2013 8:09 PM CDT Narrative [facility] - 04/30/2013 9:58 PM CDT HT [id number] 1 TUBE Belen Tesfaye MD LAB - CHEMISTRY ORDE KALEB [address] [phone] * CK BLOOD (04/30/2013 7:30 PM CDT) CK Total 56 30 - 200 Units/L [facility] Serum 04/30/2013 7:30 PM CDT 04/30/2013 8:09 PM CDT Narrative [facility] - 04/30/2013 9:58 PM CDT HT [id number] 1 TUBE Belen Tesfaye MD LAB - CHEMISTR[place] [address], [facility] [phone] * COMPLEMENT C3 (04/30/2013 7:30 PM CDT) Complement C3 128 82 - 193 mg/dL [facility] Venous blood specimen (specimen) 04/30/2013 7:30 PM CDT 04/30/2013 8:09 PM CDT Narrative [facility] - 04/30/2013 9:58 PM CDT HT [id number] 1 TUBE Belen Tesfaye MD LAB - CHEMISTRY SCOTT MANUEL Performing Organization Address [facility] Co de Phone Number [address] [phone] * NEUTROPHIL CYTOPLASMIC ANTIBODY (04/30/2013 12:50 PM CDT) Cytoplasmic Neutrophilic Antibody <1:20 Neg:<1:20 titer [facility] p-ANCA <1:20 Neg:<1:20 titer [facility] Comment: The presence of positive fluorescence exhibiting P-ANCA or C-ANCA patterns alone is not specific for the diagnosis of Irene's Granulomatosis (WG) or microscopic polyangiitis. Decisions about treatment should not be based solely on ANCA IFA results. The [employer] ANCA [employer] Consensus recommends follow up testing of positive sera with both OH- 3 and MPO-ANCA enzyme immunoassays. As many as 5% serum samples are positive only by EIA. Ref. AM J Clin Pathol 1999;111:507-513. Atypical p-ANCA <1:20 Neg:<1:20 titer [facility] Comment: The atypical pANCA pattern has been observed in a significant percentage of patients with ulcerative colitis, primary sclerosing cholangitis and autoimmune hepatitis. Performed at: - [address] [id number] Rounding Machine Operator: Best Macdonald PhD, Phone: [phone] Venous blood specimen (specimen) 04/30/2013 12:50 PM CDT 04/30/2013 1:10 PM CDT Belen Tesfaye MD LAB - CHEMISTRY SCOTT MANUEL Performing Organization Address [facility]/[place] [address], [place] [phone] * MPO/OH 3 AUTOANTIBODIES PANEL (04/30/2013 12:50 PM CDT) Myeloperoxidase Antibody <9.0 0.0 - 9.0 U/mL [facility] Serine PR3 (ANCA) <3.5 0.0 - 3.5 U/mL [facility] Comment: Performed at: [address] [id number] Rounding Machine Operator: Emiliano Krishnan MD, Phone: [phone] 04/30/2013 12:5 0 PM CDT 04/30/2013 1:10 PM CDT Belen Tesfaye MD LAB - CHEMISTRY SCOTT MANUEL [address] [phone] * TROPONIN I (04/30/2013 10:30 AM CDT) Only the most recent of3 resultswithin the time period is included. Pathologist [facility] Troponin I < 0.010 <0.032 ng/mL [facility] Comment: NOTE Any condition resulting in myocardial cell damage can potentially increase cardiac troponin-I levels. Published studies have documented that these conditions include, but are not limited to, angina, unstable angina, congestive heart failure, myocarditis, cardiac surgery, or invasive testing and non-cardiac related causes such as pulmonary embolism, renal failure, and sepsis. 6-8 hours are required for cardiac troponin I to increase after onset of chest pain. Troponin values generally remain elevated for 5-10 days. 04/30/2013 10:3 0 AM CDT 04/30/2013 11:16 AM CDT Narrative [facility] - 04/30/2013 12:00 PM CDT IS PATIENT ON HEPARIN? (Y OR N) N Belen Tesfaye MD LAB - CHEMISTRY SCOTT MANUEL Performing Organization Address City/[facility]/ZIP Co de Phone Number [address] [phone] * CK + CKMB PANEL (04/30/2013 10:30 AM CDT) Only the most recent of2 resultswithin the time period is included. CK Total 52 30 - 200 Units/L [facility] CK-MB 0.6 0.0 - 6.6 ng/mL [facility] Comment: CKMB Reference Range 6.6 ng/mL or greater = Positive For indeterminate results, additional specimen(s) for CKMB, drawn at least one hour apart, may aid diagnosis. Positive CKMB results should be clinically interpreted in combination with total CK serum level. In patients without cardiac muscle damage, CKMB (ng/mL) is generally <2.5% of total CK enzyme activity (Units/L). Virtually all patients with acute myocardial infarction have CKMB values 6.6 ng/mL or greater for samples drawn at least 8-12 hours after the onset of chest pain. CKMB values generally remain elevated for 2-3 days. 04/30/2013 10:3 0 AM CDT 04/30/2013 11:16 AM CDT Narrative [facility] - 04/30/2013 12:00 PM CDT IS PATIENT ON HEPARIN? (Y OR N) N Belen Tesfaye MD LAB - CHEMISTRY [facility] Organization Address City/State/ZIP Co de Phone Number [address] [phone] * ECHO W DOPPLER AND COLOR FLOW (04/30/2013 12:00 AM CDT) Anatomical Region Laterality Modality Other 04/30/2013 Belen Tesfaye MD ECHOCARDIOGRAPHY RAD IANT * HEMOGLOBIN A1C (04/29/2013 8:30 AM CDT) Pathologist [facility] Hemoglobin A1c 5.6 4.4 - 6.3 % [facility] Estimated Average Glucose 114 mg/dL [facility] Blood specimen (specimen) 04/29/2013 8:30 AM CDT 04/29/2013 9:00 AM CDT Narrative [facility] - 04/29/2013 2:07 PM CDT IS PATIENT ON HEPARIN? (Y OR N) N Arnold Mireles MD LAB - CHEMISTRY [place] Performing Organization Address [facility]/ZIP Co de Phone Number [address] [phone] * RETIC COUNT (04/29/2013 8:30 AM CDT) Reticulocyte % 2.3 0.4 - 2.5 % [facility] Comment: * PLEASE NOTE NEW REFERENCE RANGE * Reticulocyte Absolute 0.10 0.02 - 0.13 10^6/uL [facility] Comment: * PLEASE NOTE NEW REFERENCE RANGE * Venous blood specimen (specimen) 04/29/2013 8:30 AM CDT 04/29/2013 9:00 AM CDT Narrative [facility] - 04/29/2013 9:18 AM CDT IS PATIENT ON HEPARIN? (Y OR N) N Arnold Mireles MD LAB - HEMATOLOGY ORD ERAEVIE Performing Organization Address City/[facility]/ZIP Co de Phone Number [address] [phone] * CT ANGIO CHEST PULM EMBOLISM (04/29/2013 12:01 AM CDT) Anatomical Region Laterality Modality Chest Other Impressions 04/29/2013 3:27 PM CDT Impression: 1. No evidence of pulmonary embolism. 2. Postoperative appearance of right upper lobectomy. Dr. Johansen discussed preliminary findings with Dr. Rivera at 1241 hours on 04/29/2013 This report was approved by Charanjit Puente M.D. on 04/29/2013 10:41 AM . I, Dr. BASSAM JACKSON M.D. have personally reviewed and interpreted this examination/study. This report was electronically signed by BASSAM JACKSON M.D. on 04/29/2013 3:27 PM . Narrative 04/29/2013 3:27 PM CDT Exam: CT Chest PE Protocol History: Hemoptysis, History of right upper lobectomy. Technique: Multislice helical CT axial images of the chest were performed after the uneventful administration of 100 mL Omnipaque 350 intravenous contrast according to PE protocol. Findings: No prior study is available for comparison. Motion artifact limits evaluation of the segmental branches of the right lower lobe. No filling defects are present in the pulmonary arteries to suggest emboli. Surgical clips and scarring are present along the right apex which is likely related to provided history of right upper lobectomy. The lungs are free of pathologic opacities. Minimal bilateral lower lobe dependent atelectasis is present. No pneumothorax or pleural effusion is present. The heart size is normal. The great vessels are normal in course and caliber. No mediastinal or hilar lymphadenopathy is present. The veins of the pelvis and lower extremities are free of thrombi. The visualized portions of the liver, gallbladder, spleen, pancreas, adrenals, and kidneys are unremarkable. An accessory left hepatic artery is incidentally noted. The visualized bowel is unremarkable. Focal irregularity of the sternum (image 31, series 8) appears chronic and may represent non-fusion of sternal segments with superimposed degenerative change. Procedure Note Bsasam Jackson MD - 11/03/2017 Exam: CT Chest PE Protocol History: Hemoptysis, History of right upper lobectomy. Technique: Multislice helical CT axial images of the chest were performedafter the uneventful administration of 100 mL Omnipaque 350 intravenouscontrast according to PE protocol. Findings: No prior study is available for comparison. Motion artifact limits evaluation of the segmental branches of the rightlower lobe. No filling defects are present in the pulmonary arteries tosuggest emboli. Surgical clips and scarring are present along the rightapex which is likely related to provided history of right upper lobectomy. The lungs are free ofpathologic opacities. Minimal bilateral lower lobe dependent atelectasisis present. No pneumothorax or pleural effusion is present. The heart sizeis normal. The great vessels are normal in course and caliber. No mediastinal or hilar lymphadenopathy is present.The veins of the pelvis and lower extremities are free of thrombi. The visualized portions of the liver, gallbladder, spleen, pancreas,adrenals, and kidneys are unremarkable. An accessory left hepatic arteryis incidentally noted. The visualized bowel is unremarkable. Focalirregularity of the sternum (image 31, series 8) appears chronic and may represent non-fusion of sternal segments withsuperimposed degenerative change. IMPRESSION Impression: 1. No evidence of pulmonary embolism. 2. Postoperative appearance of right upper lobectomy. Dr. Johansen discussed preliminary findings with Dr. Rivera at 1241 hours on04/29/2013 This report was approved by Charnajit Puente M.D. on 04/29/2013 10:41AM . I, Dr. BASSAM JACKSON M.D. have personally reviewed and interpreted thisexamination/study. This report was electronically signed by BASSAM JACKSON M.D. on04/29/2013 3:27 PM . Em[address]ab[address] CT ORDERABLES * LIPASE BLOOD (04/28/2013 9:55 PM CDT) Lipase 32 8 - 78 Units/L [facility] Serum 04/28/2013 9:55 PM CDT 04/28/2013 10:18 PM CDT Narrative [facility] - 04/28/2013 10:52 PM CDT IS PATIENT ON HEPARIN? (Y OR N) N Emiliano Calabrese LAB - [place] [address], [facility] [phone] * GROSS + MICRO EXAM (07/24/2001 7:33 AM SUPERVISOR DECORATING) Only the most recent of2 resultswithin the time period is included. Result CASE NUMBER [id number] Comment: ORDERING PHYSICIAN CINDI PATTONDENISE Swartz SPECIMEN TYPE Placenta Date 07/24/2001 Physician Cherelle Gross Description Received fresh from the OR labeled with the patient's name, and `Placenta'. It consists of a disc shaped placenta measuring 16.5 x 16.5 x 2.5 cm and weighs 660 gm., It has an eccentrically inserted umbilical cord measuring 20 cm in length x 1 cm in diameter. It inserts approximately 2 cm from the nearest margin and has three blood vessels. membranes are marginally attached. There are multiple areas of whitish yellow discoloration mixed with blood clot attached to them. The surface is nails pink with well engorged blood vessels. On sectioning it is unremarkable. The maternal surface is pinkish nails in color with a well defined cotyledon structure except for the areas which measure 12 x 6 cm in greatest dimension. This area is remarkable for disrupted cotyledon structure and appears dark brownish red in color mixed with blood clot. The remainder of the surface of the placenta contains yellow whitish plaques measuring from 0.4 cm. to 1.5 cm in greatest dimension. Director Of Regulatory Affairs sections are submitted as follows umbilical cord and membranes in A, B- portion of placenta, C-maternal portion of placenta. Tk/beenac Microscopic Exam Sections of the membranes show some hemosiderin and inflammatory cells within the decidua, but no convincing chorioamnionitis or evidence of meconium is seen. The umbilical cord is a three vessel cord. No funisitis is seen. Sections of the placental disc show extensive calcifications and mature chorionic villi. No villitis is present. Sections of the surface do show mild acute inflammation involving the chorion and amnion. The grossly noted area of disruption is presumably mechanical. There was no evidence of retro-placental hematoma grossly. Diagnosis I. Placenta, delivery A. Histologically mature placenta, 660 grams. B. Acute chorioamnionitis, mild. C. Three vessel umbilical cord. Rn Diabetes bk Pathologist Santi Nichols M.D. [place]. 07/25/2001 1525 <1> CPT code 90823 MISCELLANEOUS SAMPLES / Unknown 07/24/2001 7:33 AM SUPERVISOR DECORATING 07/24/2001 7:33 AM SUPERVISOR DECORATING Historical Provider MD LAB - PATHOLOGY/C YTOLOGY ORDERABLES Care Teams Advertising Dispatch Clerk Relationship Specialty Start Date End Date Brett Chávez MD [address] [id number] PCP - General 08/23/22 Ally Chambers, RN Urban Anthropologist 09/12/16
--- OUTSIDE RECORDS SUMMARY | 2024-10-13 01:27 | XMS_ITS | Data Portability ---
Author Organization [facility] Address [address] [place] [address] Care Team Providers Care Apartment Rental Clerk Name Role Phone FERNANDA SANTANA Primary Care Provider Assessment No assessment recorded. Plan of Treatment Reminders Order Date Submit Date Provider Last Modified By Organization Details Last Modified Time Details Appointments None recorded . Lab lipid panel, serum 2024 025 [facility], [address] [place] [address], [address], 5 08:38:42 ferritin , serum or plasma 2024 025 [facility], [address] [place] [address], [address], 5 08:38:44 iron + total iron-bin ding capacity (TIBC), serum 2024 025 [facility], [address] [place] [address], [address], 5 08:38:43 CBC 2024 025 [facility], [address] [place] [address], [address], 5 08:38:46 lipid panel, serum 2024 025 [facility], [address] [place] [address], [address], 5 10:36:26 CMP, serum or plasma 2024 025 [facility], [address], [place], [address], 5 10:36:27 iron + total iron-bin ding capacity (TIBC), serum 2024 025 [facility], [address], [place], [address], 5 10:36:28 ferritin , serum or plasma 2024 025 [facility], [address], [place], [address], 5 10:36:30 CBC w/ auto diff 2024 025 [facility], [address], [place], [address], 5 10:36:31 vitamin B12, serum 2024 025 [facility], [address], [place], [address], 5 10:36:29 fecal occult blood, immunoas say, stool 2024 025 [facility], [address], [place], [address], 5 14:09:38 CBC w/ auto diff 2023 024 [facility], [address], [place], [address], 4 08:25:28 HbA1c (hemoglo bin A1c), blood 2023 024 [facility], [address], [place], [address], 4 08:25:25 CMP, serum or plasma 2023 024 [facility], [address] [facility], [facility] [address], [place], [address], 4 08:25:24 lipid panel, serum 2023 024 [facility], [address] [facility], [facility] [address], [place], [address], 4 08:25:22 TSH, ultra-se nsitive, serum 2023 024 [facility], [address] [facility], [facility] [address], [place], [address], 4 08:25:26 Referral pain manageme nt referral 2024 025 [facility], [address], [place], [address], 5 09:32:36 Procedures None recorded . Surgeries None recorded . Imaging MAMMO, screenin g, digital, bilatera l 2024 025 [facility] (Central Scheduling), [address], [place], [address], 5 10:00:19 XR, chest, 2 view 2024 025 [facility] (Central Scheduling), [address], [place], [address], 5 11:19:24 XR, chest, 2 view 2024 025 [facility] (Central Scheduling), [address], [place], [address], 5 08:15:12 electroc ardiogra m 2023 024 [facility], [address] [facility] , [place], [address], 4 14:34:17 US, echocard iogram 2023 024 [facility], [address] [facility] , [place], [address], 4 15:29:24 Medication Orders Medrol (Trevin) 4 mg tablets in a dose pack [address] [facility] #[id number], [address], [place], [id number], 5 11:26:30 benzonat ate 200 mg capsule [address] [facility] #[id number], [address], [place], [id number], 5 11:25:01 Zithroma x Z-Trevin 250 mg tablet 2024 025 [facility] #[id number], [address], [place], [id number], 5 10:53:56 cyanocob alamin (vit B-12) 1,000 mcg/mL injectio n solution 2024 025 [facility] #63268, [address], [place], [id number], 5 13:24:28 gabapent in 300 mg capsule 2023 025 [facility] #[id number], [address], [place], [id number], 5 10:50:40 rosuvast atin 10 mg tablet 2023 024 [facility] #[id number], [address], [place], [id number], 4 14:35:46 Patient TargetsNo targets recorded. Patient Instructions Encounter Date Encounter Id Patient Instructions Last Modified By Organization Details Last Modified Time 04/14/2024 [id number] f/u in 4 month nsuthan Not available 04/14/2024 10:36:55 08/10/2024 [id number] f/u in 1month nsuthan Not available 0 08/10/2024 13:19:44 08/17/2024 [id number] f/u in 1 month nsuthan Not available 08/17/2024 10:54:24 10/01/2024 [id number] A healthy lifestyle: care instructions [email or web address] Not available 10/01/2024 11:55:20 Reason for Referral Pain Management Referral for Chronic back pain Referring Physician: Vandana Snow, Internal Medicine, Encounter Date: 08/17/2024 Results Created Date Observation Date Name Description Value Unit Range Abnormal Flag Note LastModifiedBy Organization Detail LastModifiedTime 07/09/20 24 07/10/2024 LIPID PANEL cholesterol, total 274 mg/dL 100-19 9 above high normal Not Available [facility] ([facility]) [address] [place], [address], 07/10/2024 08:25:22 07/09/20 24 07/10/2024 LIPID PANEL triglyceride s 215 mg/dL 0-149 above high normal Not Available [facility] ([facility]) [address] [place], [address], 07/10/2024 08:25:22 07/09/20 24 07/10/2024 LIPID PANEL HDL cholesterol 58 mg/dL >39 Not Available [facility] ([facility]) [address] [place], [address], 07/10/2024 08:25:22 07/09/20 24 07/10/2024 LIPID PANEL VLDL cholesterol selene 40 mg/dL 5-40 Not Available [facility] ([facility]) [address] [place], [address], 07/10/2024 08:25:22 07/09/20 24 07/10/2024 LIPID PANEL LDL chol calc ([facility]) 176 mg/dL 0-99 above high normal Not Available [facility] ([facility]) [address] [place], [address], 07/10/2024 08:25:22 07/09/20 24 07/10/2024 COMP. METAB OLIC PANEL (14) glucose 129 mg/dL 70-99 above high normal Not Available [facility] ([facility]) [address] [place], [address], 07/10/2024 08:25:24 07/09/20 24 07/10/2024 COMP. METAB OLIC PANEL (14) BUN 15 mg/dL 6-24 Not Available [facility] ([facility]) [address] [place], [address], 07/10/2024 08:25:24 07/09/20 24 07/10/2024 COMP. METAB OLIC PANEL (14) creatinine 0.76 mg/dL 0.57-1 .00 Not Available [facility] ([facility]) [address] [place], [address], 07/10/2024 08:25:24 07/09/20 24 07/10/2024 COMP. METAB OLIC PANEL (14) eGFR 98 mL/mi n/1.7 3 >59 Not Available [facility] ([facility]) [address] [place], [address], 07/10/2024 08:25:24 07/09/20 24 07/10/2024 COMP. METAB OLIC PANEL (14) BUN/creatini ne ratio 20 9- Not Available [facility] ([facility]) [address] [place], [address], 07/10/2024 08:25:24 07/09/20 24 07/10/2024 COMP. METAB OLIC PANEL (14) sodium 140 mmol/ L 134-14 4 Not Available [facility] ([facility]) [address] [place], [address], 07/10/2024 08:25:24 07/09/20 24 07/10/2024 COMP. METAB OLIC PANEL (14) potassium 4.7 mmol/ L 3.5-5. 2 Not Available [facility] ([facility]) [address] [place], [address], 07/10/2024 08:25:24 07/09/20 24 07/10/2024 COMP. METAB OLIC PANEL (14) chloride 104 mmol/ L 96-106 Not Available [facility] ([facility]) [address] [place], [address], 07/10/2024 08:25:24 07/09/20 24 07/10/2024 COMP. METAB OLIC PANEL (14) carbon dioxide, total 19 mmol/ L 20-29 below low normal Not Available [facility] ([facility]) [address] [place], [address], 07/10/2024 08:25:24 07/09/20 24 07/10/2024 COMP. METAB OLIC PANEL (14) calcium 9.8 mg/dL 8.7-10 .2 Not Available [facility] ([facility]) [address] [facility] [place], [address], 07/10/2024 08:25:24 07/09/20 24 07/10/2024 COMP. METAB OLIC PANEL (14) protein, total 6.5 g/dL 6.0-8. 5 Not Available [facility] ([facility] [address] [facility] [place], [address], 07/10/2024 08:25:24 07/09/20 24 07/10/2024 COMP. METAB OLIC PANEL (14) albumin 4.3 g/dL 3.9-4. 9 Not Available [facility] ([facility]) [address] [place], [address], 07/10/2024 08:25:24 07/09/20 24 07/10/2024 COMP. METAB OLIC PANEL (14) globulin, total 2.2 g/dL 1.5-4. 5 Not Available [facility] ([facility]) [address] [facility] [place], [address], 07/10/2024 08:25:24 07/09/20 24 07/10/2024 COMP. METAB OLIC PANEL (14) bilirubin, total 0.4 mg/dL 0.0-1. 2 Not Available [facility] ([facility]) [address] [place], [address], 07/10/2024 08:25:24 07/09/20 24 07/10/2024 COMP. METAB OLIC PANEL (14) alkaline phosphatase 132 IU/L 44-121 above high normal Not Available [facility] ([facility]) [address] [place], [address], 07/10/2024 08:25:24 07/09/20 24 07/10/2024 COMP. METAB OLIC PANEL (14) AST (SGOT) 14 IU/L 0-40 Not Available [facility] ([facility]) [address] [place], [address], 07/10/2024 08:25:24 07/09/20 24 07/10/2024 COMP. METAB OLIC PANEL (14) ALT (SGPT) 12 IU/L 0-32 Not Available [facility] ([facility]) [address] [place], [address], 07/10/2024 08:25:24 07/09/20 24 07/10/2024 HEMOG LOBIN A1C hemoglobin A1C 5.8 % 4.8-5. 6 above high normal Predi abete s: 5.7 - 6.4 Diabe funmi: >6.4 Glyce magdalena contr ol for adult s with diabe funmi: <7.0 Not Available [facility] ([facility]) [address] [facility], [place], [address], 07/10/2024 08:25:25 07/09/20 24 07/10/2024 TSH TSH 0.824 uIU/m L 0.450- 4.500 Not Available [facility] ([facility]) [address] [facility], [place], [address], 07/10/2024 08:25:26 07/09/20 24 07/10/2024 CBC WITH DIFFE RENTI AL/PL ATELE T WBC 6.2 x10e3 /uL 3.4-10 .8 Not Available [facility] ([facility]) [address] [facility], [place], [address], 07/10/2024 08:25:28 07/09/20 24 07/10/2024 CBC WITH DIFFE RENTI AL/PL ATELE T RBC 4.84 x10e6 /uL 3.77-5 .28 Not Available [facility] ([facility]) [address] [facility], [place], [address], 07/10/2024 08:25:28 07/09/20 24 07/10/2024 CBC WITH DIFFE RENTI AL/PL ATELE T hemoglobin 11.3 g/dL 11.1-1 5.9 Not Available [facility] ([facility]) [address] [facility], [place], [address], 07/10/2024 08:25:28 07/09/20 24 07/10/2024 CBC WITH DIFFE RENTI AL/PL ATELE T hematocrit 36.4 % 34.0-4 6.6 Not Available [facility] ([facility]) [address] [facility], [place], [address], 07/10/2024 08:25:28 07/09/20 24 07/10/2024 CBC WITH DIFFE RENTI AL/PL ATELE T MCV 75 fL 79-97 below low normal Not Available [facility] ([facility]) [address] [facility], [place], [address], 07/10/2024 08:25:28 07/09/20 24 07/10/2024 CBC WITH DIFFE RENTI AL/PL ATELE T MCH 23.3 pg 26.6-3 3.0 below low normal Not Available [facility] ([facility]) [address] [facility], [place], [address], 07/10/2024 08:25:28 07/09/20 24 07/10/2024 CBC WITH DIFFE RENTI AL/PL ATELE T MCHC 31.0 g/dL 31.5-3 5.7 below low normal Not Available [facility] ([facility]) [address] [facility], [place], [address], 07/10/2024 08:25:28 07/09/20 24 07/10/2024 CBC WITH DIFFE RENTI AL/PL ATELE T RDW 15.7 % 11.7-1 5.4 above high normal Not Available [facility] ([facility]) [address] [facility], [place], [address], 07/10/2024 08:25:28 07/09/20 24 07/10/2024 CBC WITH DIFFE RENTI AL/PL ATELE T platelets 447 x10e3 /uL 150-45 0 Not Available [facility] ([facility]) [address] [place], [address], 07/10/2024 08:25:28 07/09/20 24 07/10/2024 CBC WITH DIFFE RENTI AL/PL ATELE T neutrophils 58 % notest ab. Not Available [facility] ([facility]) [address] [facility], [place], [address], 07/10/2024 08:25:28 07/09/20 24 07/10/2024 CBC WITH DIFFE RENTI AL/PL ATELE T lymphs 31 % notest ab. Not Available [facility] ([facility]) [address] [facility], [place], [address], 07/10/2024 08:25:28 07/09/20 24 07/10/2024 CBC WITH DIFFE RENTI AL/PL ATELE T monocytes 7 % notest ab. Not Available [facility] ([facility]) [address] [facility], [place], [address], 07/10/2024 08:25:28 07/09/20 24 07/10/2024 CBC WITH DIFFE RENTI AL/PL ATELE T eos 3 % notest ab. Not Available [facility] ([facility]) [address] [facility], [place], [address], 07/10/2024 08:25:28 07/09/20 24 07/10/2024 CBC WITH DIFFE RENTI AL/PL ATELE T basos 1 % notest ab. Not Available [facility] ([facility]) [address] [facility], [place], [address], 07/10/2024 08:25:28 07/09/20 24 07/10/2024 CBC WITH DIFFE RENTI AL/PL ATELE T neutrophils (absolute) 3.6 x10e3 /uL 1.4-7. 0 Not Available [facility] ([facility]) [address] [facility], [place], [address], 07/10/2024 08:25:28 07/09/20 24 07/10/2024 CBC WITH DIFFE RENTI AL/PL ATELE T lymphs (absolute) 1.9 x10e3 /uL 0.7-3. 1 Not Available [facility] ([facility]) [address] [facility], [place], [address], 07/10/2024 08:25:28 07/09/20 24 07/10/2024 CBC WITH DIFFE RENTI AL/PL ATELE T monocytes(ab solute) 0.4 x10e3 /uL 0.1-0. 9 Not Available [facility] ([facility]) [address] [facility], [place], [address], 07/10/2024 08:25:28 07/09/20 24 07/10/2024 CBC WITH DIFFE RENTI AL/PL ATELE T eos (absolute) 0.2 x10e3 /uL 0.0-0. 4 Not Available [facility] ([facility]) [address] [facility], [place], [address], 07/10/2024 08:25:28 07/09/20 24 07/10/2024 CBC WITH DIFFE RENTI AL/PL ATELE T baso (absolute) 0.0 x10e3 /uL 0.0-0. 2 Not Available [facility] ([facility]) [address] [facility], [place], [address], 07/10/2024 08:25:28 07/09/20 24 07/10/2024 CBC WITH DIFFE RENTI AL/PL ATELE T immature granulocytes 0 % notest ab. Not Available [facility] ([facility]) [address] [facility], [place], [address], 07/10/2024 08:25:28 07/09/20 24 07/10/2024 CBC WITH DIFFE RENTI AL/PL ATELE T immature grans (abs) 0.0 x10e3 /uL 0.0-0. 1 Not Available [facility] ([facility]) [address] [place], [address], 07/10/2024 08:25:28 07/09/20 24 07/10/2024 carBA Mazep ine [Mass /volu me] in Serum or Plasm a carbamazepin e [mass/volume ] in serum or plasma text: 8.0 - 12.0 mcg/mL low TEGRE PORTILLO <1.9 (L) 8.0 - 12.0 mcg/m L 07/10 2:33 PM [facility] Not Available Not Available 10/01/2024 03:21:24 07/09/20 24 07/10/2024 carBA Mazep ine [Mass /volu me] in Serum or Plasm a interpretati on and review of laboratory results Abnorm al Not Available Not Available 03:21:24 07/20/20 24 07/20/2024 Influ sanjiv virus A and B and SARS- CoV-2 (COVI D-19) and Respi rator y syncy tial virus RNA panel - Respi rator y syste m speci men by YULIANA with probe detec tion influenza virus A RNA [presence] in upper respiratory specimen by YULIANA with probe detection Negati ve text: negati ve, error FLU A Negat larry Negat larry, Error 07/20 9:02 PM EDI ANALYST [facility] Not Available Not Available 10/01/2024 03:21:25 07/20/20 24 07/20/2024 Influ sanjiv virus A and B and SARS- CoV-2 (COVI D-19) and Respi rator y syncy tial virus RNA panel - Respi rator y syste m speci men by YULIANA with probe detec tion influenza virus B RNA [presence] in upper respiratory specimen by YULIANA with probe detection Negati ve text: negati ve FLU B Negat larry Negat larry 07/20 9:02 PM EDI ANALYST [facility] Not Available Not Available 10/01/2024 03:21:25 07/20/20 24 07/20/2024 Influ sanjiv virus A and B and SARS- CoV-2 (COVI D-19) and Respi rator y syncy tial virus RNA panel - Respi rator y syste m speci men by YULIANA with probe detec tion respiratory syncytial virus RNA [presence] in respiratory system specimen by YULIANA with probe detection Negati ve text: negati ve RESP SYNC VIRUS Negat larry Negat larry 07/20 9:02 PM EDI ANALYST [facility] Not Available Not Available 10/01/2024 03:21:25 07/20/20 24 07/20/2024 Influ sanjiv virus A and B and SARS- CoV-2 (COVI D-19) and Respi rator y syncy tial virus RNA panel - Respi rator y syste m speci men by YULIANA with probe detec tion sars-cov-2 (covid-19) N gene [presence] in specimen by YULIANA with probe detection NOT DETECT ED text: (refer ence range for this test IS not detect ed) SARSC OV2 NOT DETEC MARISEL (Refe rence Range for this test is Not Detec marisel) 07/20 9:02 PM EDI ANALYST [facility] Not Available Not Available 10/01/2024 03:21:25 07/20/20 24 07/20/2024 Influ sanjiv virus A and B and SARS- CoV-2 (COVI D-19) and Respi rator y syncy tial virus RNA panel - Respi rator y syste m speci men by YULIANA with probe detec tion Unknown Analyte This test has not been FDA cleare d or approv ed; the test has been author ized by FDA under an Emerge ncy Use Author izdrake n (EUA) for use by labora [facility] certif ied under the CLIA that meet the requir ements to perfor m modera te, high or waived comple xity tests. Author ized Fact Sheets about this test for provid ers and patien ts are availa ble at: https: //www. fda.go v/medi selene-de vices/ emerge ncy-si tuatio ns-med ical-d evices /emerg ency-u se-aut horiza tions This test has not been FDA clear ed or appro addy; the test has been autho rized by FDA under an Emerg ency Use Autho rizat ion (EUA) for use by labor atori es certi fied under the CLIA that meet the requi remen ts to perfo rm moder ate, high or waive d compl exity tests . Autho rized Fact Sheet s about this test for provi ders and patie nts are avail able at: https ://ww w.fda .gov/ medic al-de vices /jacek gency -situ ation s-med ical- devic es/em ergen cy-us e-aut horiz ation s Not Available Not Available 10/01/2024 03:21:25 07/20/20 24 07/20/2024 Influ sanjiv virus A and B and SARS- CoV-2 (COVI D-19) and Respi rator y syncy tial virus RNA panel - Respi rator y syste m speci men by YULIANA with probe detec tion interpretati on and review of laboratory results Normal Not Available Not Available 09/06 03:21:25 07/20/20 24 07/20/2024 CBC W Auto Diffe renti al panel - Blood leukocytes [#/volume] in blood by automated count 5.6 text: 4.00 - 12.00 10(3)/ mcL WBC 5.60 4.00 - 12.00 10(3) /mcL 07/20 8:16 PM [facility] Not Available Not Available 10/01/2024 03:21:25 07/20/20 24 07/20/2024 CBC W Auto Diffe renti al panel - Blood erythrocytes [#/volume] in blood by automated count 4.48 text: 3.80 - 5.30 10(6)/ mcL RBC 4.48 3.80 - 5.30 10(6) /mcL 07/20 8:16 PM [facility] Not Available Not Available 10/01/2024 03:21:25 07/20/20 24 07/20/2024 CBC W Auto Diffe renti al panel - Blood hemoglobin [mass/volume ] in blood 10.4 g/dL low: 12g/dL high: 15.8g/ dL low HEMOG LOBIN (HGB) 10.4 (L) 12.0 - 15.8 g/dL 07/20 8:16 PM [facility] Not Available Not Available 10/01/2024 03:21:25 07/20/20 24 07/20/2024 CBC W Auto Diffe renti al panel - Blood hematocrit [volume fraction] of blood by automated count 33.9 % low: 36%hig h: 47% low HEMAT OCRIT (HCT) 33.9 (L) 36.0 - 47.0 % 07/20 8:16 PM [facility] Not Available Not Available 10/01/2024 03:21:25 07/20/20 24 07/20/2024 CBC W Auto Diffe renti al panel - Blood MCV [entitic volume] by automated count 75.7 fL low: 82fLhi gh: 96fL low MCV 75.7 (L) 82.0 - 96.0 fL 07/20 8:16 PM [facility] Not Available Not Available 10/01/2024 03:21:25 07/20/20 24 07/20/2024 CBC W Auto Diffe ernesto al panel - Blood MCH [entitic mass] by automated count 23.2 pg low: 26pghi gh: 34pg low MCH 23.2 (L) 26.0 - 34.0 pg 07/20 8:16 PM [facility] Not Available Not Available 10/01/2024 03:21:25 07/20/20 24 07/20/2024 CBC W Auto Diffe ernesto al panel - Blood MCHC [mass/volume ] by automated count 30.7 g/dL low: 31g/dL high: 36g/dL low MCHC 30.7 (L) 31.0 - 36.0 g/dL 07/20 8:16 PM [facility] Not Available Not Available 10/01/2024 03:21:25 07/20/20 24 07/20/2024 CBC W Auto Diffe kenyattati al panel - Blood platelets [#/volume] in blood 416 text: 140 - 440 10(3)/ mcL PLATE LET COUNT 416 140 - 440 10(3) /mcL 07/20 8:16 PM [facility] Not Available Not Available 10/01/2024 03:21:25 07/20/20 24 07/20/2024 CBC W Auto Diffe renti al panel - Blood erythrocyte distribution width [ratio] by automated count 15.8 % low: 11.8%h igh: 15.5% high RDW 15.8 (H) 11.8 - 15.5 % 07/20 8:16 PM [facility] Not Available Not Available 10/01/2024 03:21:25 07/20/20 24 07/20/2024 CBC W Auto Diffe renti al panel - Blood platelet mean volume [entitic volume] in blood by automated count 9.6 fL low: 9.7fLh igh: 12.4fL low MPV 9.6 (L) 9.7 - 12.4 fL 07/20 8:16 PM [facility] Not Available Not Available 10/01/2024 03:21:25 07/20/20 24 07/20/2024 CBC W Auto Diffe renti al panel - Blood neutrophils/ 100 leukocytes in blood by automated count 56.5 % low: 47%hig h: 73% NEUTR OPHIL S 56.5 47.0 - 73.0 % 07/20 8:16 PM [facility] Not Available Not Available 10/01/2024 03:21:25 07/20/20 24 07/20/2024 CBC W Auto Diffe renti al panel - Blood lymphocytes/ 100 leukocytes in blood by automated count 33 % low: 18%hig h: 42% LYMPH OCYTE S 33.0 18.0 - 42.0 % 07/20 8:16 PM [facility] Not Available Not Available 10/01/2024 03:21:25 07/20/20 24 07/20/2024 CBC W Auto Diffe renti al panel - Blood monocytes/10 0 leukocytes in blood by automated count 6.4 % low: 4%high : 12% MONOC YTES 6.4 4.0 - 12.0 % 07/20 8:16 PM [facility] Not Available Not Available 10/01/2024 03:21:25 07/20/20 24 07/20/2024 CBC W Auto Diffe renti al panel - Blood eosinophils/ 100 leukocytes in blood by automated count 3.4 % low: 0%high : 5% EOSIN OPHIL S 3.4 0.0 - 5.0 % 07/20 8:16 PM [facility] Not Available Not Available 10/01/2024 03:21:25 07/20/20 24 07/20/2024 CBC W Auto Diffe renti al panel - Blood basophils/10 0 leukocytes in blood by automated count 0.7 % low: 0%high : 1% BASOP HILS 0.7 0.0 - 1.0 % 07/20 8:16 PM [facility] Not Available Not Available 10/01/2024 03:21:25 07/20/20 24 07/20/2024 CBC W Auto Diffe renti al panel - Blood neutrophils [#/volume] in blood by automated count 3.16 text: 1.60 - 7.70 10(3)/ mcL ABSOL TUNUNAK NEUTR OPHIL S 3.16 1.60 - 7.70 10(3) /mcL 07/20 8:16 PM EDI ANALYST [facility] Not Available Not Available 10/01/2024 03:21:25 07/20/20 24 07/20/2024 CBC W Auto Diffe renti al panel - Blood lymphocytes [#/volume] in blood by automated count 1.85 text: 1.30 - 3.20 10(3)/ mcL ABSOL TUNUNAK LYMPH OCYTE S 1.85 1.30 - 3.20 10(3) /mcL 07/20 8:16 PM [facility] Not Available Not Available 10/01/2024 03:21:25 07/20/20 24 07/20/2024 CBC W Auto Diffe renti al panel - Blood monocytes [#/volume] in blood by automated count 0.36 text: 0.20 - 1.00 10(3)/ mcL ABSOL TUNUNAK MONOC YTES 0.36 0.20 - 1.00 10(3) /mcL 07/20 8:16 PM [facility] Not Available Not Available 10/01/2024 03:21:25 07/20/20 24 07/20/2024 CBC W Auto Diffe renti al panel - Blood eosinophils [#/volume] in blood by automated count 0.19 text: 0.00 - 0.40 10(3)/ mcL ABSOL TUNUNAK EOSIN OPHIL 0.19 0.00 - 0.40 10(3) /mcL 07/20 8:16 PM ED[facility] [facility] Not Available Not Available 10/01/2024 03:21:25 07/20/20 24 07/20/2024 CBC W Auto Diffe renti al panel - Blood basophils [#/volume] in blood by automated count 0.04 text: 0.00 - 0.10 10(3)/ mcL ABSOL TUNUNAK BASOP HILS 0.04 0.00 - 0.10 10(3) /mcL 07/20 8:16 PM EDI ANALYST [facility] [employer] [facility] Not Available Not Available 10/01/2024 03:21:25 07/20/20 24 07/20/2024 CBC W Auto Diffe renti al panel - Blood nucleated erythrocytes /100 leukocytes [ratio] in blood 0 NRBC PER 100 WBC 0 07/20 8:16 PM [facility] Not Available Not Available 10/01/2024 03:21:25 07/20/20 24 07/20/2024 CBC W Auto Diffe renti al panel - Blood interpretati on and review of laboratory results Abnorm al Not Available Not Available 03:21:25 07/20/20 24 07/20/2024 Magne sium [Mass /volu me] in Serum or Plasm a magnesium [mass/volume ] in serum or plasma 2.1 mg/dL low: 1.6mg/ dLhigh : 2.6mg/ dL MAGNE SIUM 2.1 1.6 - 2.6 mg/dL 07/20 8:40 PM [facility] Not Available Not Available 10/01/2024 03:21:24 07/20/20 24 07/20/2024 Magne sium [Mass /volu me] in Serum or Plasm a interpretati on and review of laboratory results Normal Not Available Not Available 09/06 03:21:24 07/20/20 24 07/20/2024 Compr ehens larry metab olic 1999 panel - Serum or Plasm a sodium [moles/volum e] in serum or plasma 138 mmol/ L low: 136mmo l/Lhig h: 145mmo l/L SODIU M 138 136 - 145 mmol/ L 07/20 8:40 PM [facility] Not Available Not Available 10/01/2024 03:21:24 07/20/20 24 07/20/2024 Compr ehens larry metab olic 1999 panel - Serum or Plasm a potassium [moles/volum e] in serum or plasma 4.3 mmol/ L low: 3.5mmo l/Lhig h: 5.1mmo l/L POTAS SIUM 4.3 3.5 - 5.1 mmol/ L 07/20 8:40 PM EDI ANALYST [facility] Not Available Not Available 10/01/2024 03:21:24 07/20/20 24 07/20/2024 Compr ehens larry metab olic 1999 panel - Serum or Plasm a chloride [moles/volum e] in serum or plasma 106 mmol/ L low: 98mmol /Lhigh : 107mmo l/L CHLOR EMRE 106 98 - 107 mmol/ L 07/20 8:40 PM [facility] Not Available Not Available 10/01/2024 03:21:24 07/20/20 24 07/20/2024 Compr ehens larry metab olic 1999 panel - Serum or Plasm a carbon dioxide, total [moles/volum e] in serum or plasma 23 mmol/ L low: 22mmol /Lhigh : 30mmol /L CO2, VENOU S 23 22 - 30 mmol/ L 07/20 8:40 PM [facility] Not Available Not Available 10/01/2024 03:21:24 07/20/20 24 07/20/2024 Compr ehens larry metab olic 1999 panel - Serum or Plasm a anion gap in serum or plasma 13.3 mmol/ L high: 18mmol /L ANION GAP 13.3 <18.0 mmol/ L 07/20 8:40 PM [facility] Not Available Not Available 10/01/2024 03:21:24 07/20/20 24 07/20/2024 Compr ehens larry metab olic 1999 panel - Serum or Plasm a glucose [mass/volume ] in serum or plasma 89 mg/dL low: 70mg/d Lhigh: 99mg/d L GLUCO SE 89 70 - 99 mg/dL 07/20 8:40 PM [facility] Not Available Not Available 10/01/2024 03:21:24 07/20/20 24 07/20/2024 Compr ehens larry metab olic 1999 panel - Serum or Plasm a urea nitrogen [mass/volume ] in serum or plasma 15 mg/dL low: 5mg/dL high: 18mg/d L BUN 15 5 - 18 mg/dL 07/20 8:40 PM [facility] Not Available Not Available 10/01/2024 03:21:24 07/20/20 24 07/20/2024 Compr ehens larry metab olic 1999 panel - Serum or Plasm a creatinine [mass/volume ] in serum or plasma 0.79 mg/dL low: 0.6mg/ dLhigh : 1mg/dL CREAT ININE , BLOOD 0.79 0.60 - 1.00 mg/dL 07/20 8:40 PM [facility] Not Available Not Available 10/01/2024 03:21:24 07/20/20 24 07/20/2024 Compr ehens larry metab olic 1999 panel - Serum or Plasm a urea nitrogen/cre atinine [mass ratio] in serum or plasma 19 text: 12 - 20 ratio BUN/C REATI NINE RATIO 19 12 - 20 ratio 07/20 8:40 PM [facility] Not Available Not Available 10/01/2024 03:21:24 07/20/20 24 07/20/2024 Compr ehens larry metab olic 2000 panel - Serum or Plasm a protein [mass/volume ] in serum or plasma 6.6 g/dL low: 6.3g/d Lhigh: 8.2g/d L TOTAL PROTE IN 6.6 6.3 - 8.2 g/dL 07/20 8:40 PM [facility] Not Available Not Available 10/01/2024 03:21:24 07/20/20 24 07/20/2024 Compr [employer] larry metab olic 1999 panel - Serum or Plasm a albumin [mass/volume ] in serum or plasma 4 g/dL low: 3.5g/d Lhigh: 5g/dL ALBUM IN 4.0 3.5 - 5.0 g/dL 07/20 8:40 PM EDI ANALYST [facility] Not Available Not Available 10/01/2024 03:21:24 07/20/20 24 07/20/2024 Compr Meebler larry metab olic 1999 panel - Serum or Plasm a albumin/glob ulin [mass ratio] in serum or plasma 1.5 low: 1high: 2.2 A/G RATIO 1.5 1.0 - 2.2 07/20 8:40 PM [facility] Not Available Not Available 10/01/2024 03:21:24 07/20/20 24 07/20/2024 Compr [employer] larry [employer] olic 1999 panel - Serum or Plasm a calcium [mass/volume ] in serum or plasma 9.3 mg/dL low: 8.7mg/ dLhigh : 10.5mg /dL CALCI UM 9.3 8.7 - 10.5 mg/dL 07/20 8:40 PM EDI ANALYST [facility] [facility] Not Available Not Available 10/01/2024 03:21:24 07/20/20 24 07/20/2024 Compr [employer] larry metab olic 1999 panel - Serum or Plasm a bilirubin.to maximilian [mass/volume ] in serum or plasma 0.3 mg/dL low: 0.2mg/ dLhigh : 1.2mg/ dL T BILI 0.3 0.2 - 1.2 mg/dL 07/20 8:40 PM ED[facility] Not Available Not Available 10/01/2024 03:21:24 07/20/20 24 07/20/2024 Compr [employer] larry metab olic 1999 panel - Serum or Plasm a aspartate aminotransfe rase [enzymatic activity/vol ume] in serum or plasma 13 U/L low: 5U/Lhi gh: 34U/L SGOT (AST) 13 5 - 34 U/L 07/20 8:40 PM ED[facility] Not Available Not Available 10/01/2024 03:21:24 07/20/20 24 07/20/2024 Compr [employer] larry metab olic 2000 panel - Serum or Plasm a alanine aminotransfe rase [enzymatic activity/vol ume] in serum or plasma 13 U/L low: 0U/Lhi gh: 55U/L SGPT (ALT) 13 0 - 55 U/L 07/20 8:40 PM ED[facility] Not Available Not Available 10/01/2024 03:21:24 07/20/20 24 07/20/2024 Compr [employer] larry metab olic 1999 panel - Serum or Plasm a alkaline phosphatase [enzymatic activity/vol ume] in serum or plasma 107 U/L low: 40U/Lh igh: 150U/L ALKAL INE PHOSP HATAS E 107 40 - 150 U/L 07/20 8:40 PM ED[facility] Not Available Not Available 10/01/2024 03:21:24 07/20/20 24 07/20/2024 Compr [employer] larry metab olic 1999 panel - Serum or Plasm a glomerular filtration rate/1.73 sq M.predicted among non-blacks [volume rate/area] in serum, plasma or blood by creatinine-b ased formula (MDRD) low: 60 GFR, ESTIM ATED >60 >=60 07/20 8:40 PM ED[facility] Not Available Not Available 10/01/2024 03:21:24 12/16/07/20/2024 Compr ehens larry metab olic 2000 panel - Serum or Plasm a glomerular filtration rate/1.73 sq M.predicted among blacks [volume rate/area] in serum, plasma or blood by creatinine-b ased formula (MDRD) low: 60 GFR, EST. AFRIC AN >60 >=60 07/20 8:40 PM [facility] Not Available Not Available 10/01/2024 03:21:24 07/20/20 24 07/20/2024 Compr ehens larry metab olic 2000 panel - Serum or Plasm a glomerular filtration rate/1.73 sq M.predicted among non-blacks [volume rate/area] in serum, plasma or blood by creatinine-b ased formula (MDRD) low: 60 GFR, EST. NONAF RICAN >60 >=60 07/20 8:40 PM ED[facility] Not Available Not Available 10/01/2024 03:21:24 07/20/20 24 07/20/2024 Compr ehens larry metab olic 2000 panel - Serum or Plasm a interpretati on and review of laboratory results Normal Not Available Not Available 09/06 03:21:24 07/20/20 24 07/20/2024 Natri ureti c pepti de B [Mass /volu me] in Serum or Plasm a natriuretic peptide B [mass/volume ] in serum or plasma high: 100pg/ mL B TYPE NATRI URETI C PEPTI DE <15 <100 pg/mL 07/20 9:39 PM EDI ANA[facility] Not Available Not Available 10/01/2024 03:21:24 07/20/20 24 07/20/2024 Natri ureti c pepti de B [Mass /volu me] in Serum or Plasm a interpretati on and review of laboratory results Normal Not Available Not Available 09/06 03:21:24 08/28/19 25 08/29/2024 LIPID PANEL cholesterol, total 233 mg/dL 100-19 9 above high normal Not Available [facility] ([facility]) [address] [facility], [place], [address], 08/29/2024 10:36:26 08/28/19 25 08/29/2024 LIPID PANEL triglyceride s 222 mg/dL 0-149 above high normal Not Available [facility] ([facility]) [address] [place], [address], 08/29/2024 10:36:26 08/28/19 25 08/29/2024 LIPID PANEL HDL cholesterol 58 mg/dL >39 Not Available [facility] ([facility]) [address] [place], [address], 08/29/2024 10:36:26 08/28/19 25 08/29/2024 LIPID PANEL VLDL cholesterol selene 39 mg/dL 5-40 Not Available [facility] ([facility]) [address] [place], [address], 08/29/2024 10:36:26 08/28/19 25 08/29/2024 LIPID PANEL LDL chol calc ([facility]) 136 mg/dL 0-99 above high normal Not Available [facility] ([facility]) [address] [place], [address], 08/29/2024 10:36:26 08/28/19 25 08/29/2024 COMP. METAB OLIC PANEL (14) glucose 95 mg/dL 70-99 Not Available [facility] ([facility]) [address] [place], [address], 08/29/2024 10:36:27 08/28/19 25 08/29/2024 COMP. METAB OLIC PANEL (14) BUN 14 mg/dL 6-24 Not Available [facility] ([facility]) [address] [place], [address], 08/29/2024 10:36:27 08/28/19 25 08/29/2024 COMP. METAB OLIC PANEL (14) creatinine 0.76 mg/dL 0.57-1 .00 Not Available [facility] ([facility]) [address] [facility], [place], [address], 08/29/2024 10:36:27 08/28/19 25 08/29/2024 COMP. METAB OLIC PANEL (14) eGFR 98 mL/mi n/1.7 3 >59 Not Available [facility] ([facility]) [address], [place], [address], 08/29/2024 10:36:27 08/28/19 25 08/29/2024 COMP. METAB OLIC PANEL (14) BUN/creatini ne ratio 18 9-23 Not Available [facility] ([facility]) [address] [facility], [place], [address], 08/29/2024 10:36:27 08/28/19 25 08/29/2024 COMP. METAB OLIC PANEL (14) sodium 139 mmol/ L 134-14 4 Not Available [facility] ([facility]) [address] [facility], [place], [address], 08/29/2024 10:36:27 08/28/19 25 08/29/2024 COMP. METAB OLIC PANEL (14) potassium 4.7 mmol/ L 3.5-5. 2 Not Available [facility] ([facility]) [address] [facility] [place], [address], 08/29/2024 10:36:27 08/28/19 25 08/29/2024 COMP. METAB OLIC PANEL (14) chloride 107 mmol/ L 96-106 above high normal Not Available [facility] ([facility]) [address] [facility] [place] [place], [address], 08/29/2024 10:36:27 08/28/19 25 08/29/2024 COMP. METAB OLIC PANEL (14) carbon dioxide, total 20 mmol/ L 20-29 Not Available [facility] ([facility]) [address] [facility] [place], [address], 08/29/2024 10:36:27 08/28/19 25 08/29/2024 COMP. METAB OLIC PANEL (14) calcium 9.0 mg/dL 8.7-10 .2 Not Available [facility] ([facility]) [address] [facility], [place], [address], 08/29/2024 10:36:27 08/28/19 25 08/29/2024 COMP. METAB OLIC PANEL (14) protein, total 6.2 g/dL 6.0-8. 5 Not Available [facility] ([facility]) [address] [facility], [place], [address], 08/29/2024 10:36:27 08/28/19 25 08/29/2024 COMP. METAB OLIC PANEL (14) albumin 4.0 g/dL 3.9-4. 9 Not Available [facility] ([facility]) [address] [facility], [place], [address], 08/29/2024 10:36:27 08/28/19 25 08/29/2024 COMP. METAB OLIC PANEL (14) globulin, total 2.2 g/dL 1.5-4. 5 Not Available [facility] ([facility]) [address] [facility], [place], [address], 08/29/2024 10:36:27 08/28/19 25 08/29/2024 COMP. METAB OLIC PANEL (14) bilirubin, total <0.2 mg/dL 0.0-1. 2 Not Available [facility] ([facility]) [address] [facility], [place], [address], 08/29/2024 10:36:27 08/28/1908/29/2024 COMP. METAB OLIC PANEL (14) alkaline phosphatase 110 IU/L 44-121 Not Available [facility] ([facility]) [address] [facility], [place], [address], 08/29/2024 10:36:27 08/28/19 25 08/29/2024 COMP. METAB OLIC PANEL (14) AST (SGOT) 20 IU/L 0-40 Not Available [facility] ([facility]) [address] [place], [address], 08/29/2024 10:36:27 08/28/19 25 08/29/2024 COMP. METAB OLIC PANEL (14) ALT (SGPT) 13 IU/L 0-32 Not Available [facility] ([facility]) [address] [place], [address], 08/29/2024 10:36:27 08/28/19 25 08/29/2024 IRON AND TIBC iron bind.cap.(TI BC) 429 ug/dL 250-45 0 Not Available [facility] ([facility]) [address] [place], [address], 08/29/2024 10:36:28 08/28/19 25 08/29/2024 IRON AND TIBC UIBC 415 ug/dL 131-42 5 Not Available [facility] ([facility]) [address] [place], [address], 08/29/2024 10:36:28 08/28/19 25 08/29/2024 IRON AND TIBC iron 14 ug/dL 27-159 below low normal Not Available [facility] ([facility]) [address] [place], [address], 08/29/2024 10:36:28 08/28/19 25 08/29/2024 IRON AND TIBC iron saturation 3 % 15-55 alert low Not Available [facility] ([facility]) [address] [place], [address], 08/29/2024 10:36:28 08/28/19 25 08/29/2024 VITAM IN B12 vitamin B12 274 pg/mL 232-12 45 Not Available [facility] ([facility]) [address] [place], [address], 08/29/2024 10:36:29 08/28/1908/29/2024 TORIE TIN ferritin 7 NG/mL 15-150 below low normal Not Available [facility] ([facility]) [address] [place], [address], 08/29/2024 10:36:30 08/28/1908/29/2024 CBC WITH DIFFE RENTI AL/PL ATELE T WBC 5.3 x10e3 /uL 3.4-10 .8 Not Available [facility] ([facility]) [address] [place], [address], 08/29/2024 10:36:31 08/28/1908/29/2024 CBC WITH DIFFE RENTI AL/PL ATELE T RBC 4.24 x10e6 /uL 3.77-5 .28 Not Available [facility] ([facility]) [address] [place], [address], 08/29/2024 10:36:31 08/28/1908/29/2024 CBC WITH DIFFE RENTI AL/PL ATELE T hemoglobin 9.6 g/dL 11.1-1 5.9 below low normal Not Available [facility] ([facility]) [address] [place], [address], 08/29/2024 10:36:31 08/28/1908/29/2024 CBC WITH DIFFE RENTI AL/PL ATELE T hematocrit 31.9 % 34.0-4 6.6 below low normal Not Available [facility] ([facility]) [address] [place], [address], 08/29/2024 10:36:31 08/28/1908/29/2024 CBC WITH DIFFE RENTI AL/PL ATELE T MCV 75 fL 79-97 below low normal Not Available [facility] ([facility]) [address] [place], [address], 08/29/2024 10:36:31 08/28/19 25 08/29/2024 CBC WITH DIFFE RENTI AL/PL ATELE T MCH 22.6 pg 26.6-3 3.0 below low normal Not Available [facility] ([facility]) [address] [place], [address], 08/29/2024 10:36:31 08/28/19 25 08/29/2024 CBC WITH DIFFE RENTI AL/PL ATELE T MCHC 30.1 g/dL 31.5-3 5.7 below low normal Not Available [facility] ([facility]) [address] [place], [address], 08/29/2024 10:36:31 08/28/19 25 08/29/2024 CBC WITH DIFFE RENTI AL/PL ATELE T RDW 16.3 % 11.7-1 5.4 above high normal Not Available [facility] ([facility]) [address] [place], [address], 08/29/2024 10:36:31 08/28/19 25 08/29/2024 CBC WITH DIFFE RENTI AL/PL ATELE T platelets 418 x10e3 /uL 150-45 0 Not Available [facility] ([facility]) [address] [place], [address], 08/29/2024 10:36:31 08/28/19 25 08/29/2024 CBC WITH DIFFE RENTI AL/PL ATELE T neutrophils 55 % notest ab. Not Available [facility] ([facility]) [address] [place], [address], 08/29/2024 10:36:31 08/28/19 25 08/29/2024 CBC WITH DIFFE RENTI AL/PL ATELE T lymphs 32 % notest ab. Not Available [facility] ([facility]) [address] [place], [address], 08/29/2024 10:36:31 08/28/19 25 08/29/2024 CBC WITH DIFFE RENTI AL/PL ATELE T monocytes 8 % notest ab. Not Available [facility] ([facility]) [address] [facility], [place], [address], 08/29/2024 10:36:31 08/28/1908/29/2024 CBC WITH DIFFE RENTI AL/PL ATELE T eos 4 % notest ab. Not Available [facility] ([facility]) [address] [place], [address], 08/29/2024 10:36:31 08/28/1908/29/2024 CBC WITH DIFFE RENTI AL/PL ATELE T basos 1 % notest ab. Not Available [facility] ([facility]) [address] [place], [address], 08/29/2024 10:36:31 08/28/19 25 08/29/2024 CBC WITH DIFFE RENTI AL/PL ATELE T neutrophils (absolute) 3.0 x10e3 /uL 1.4-7. 0 Not Available [facility] ([facility]) [address] [place], [address], 08/29/2024 10:36:31 08/28/19 25 08/29/2024 CBC WITH DIFFE RENTI AL/PL ATELE T lymphs (absolute) 1.7 x10e3 /uL 0.7-3. 1 Not Available [facility] ([facility]) [address] [place], [address], 08/29/2024 10:36:31 08/28/19 25 08/29/2024 CBC WITH DIFFE RENTI AL/PL ATELE T monocytes(ab solute) 0.4 x10e3 /uL 0.1-0. 9 Not Available [facility] ([facility]) [address] [place], [address], 08/29/2024 10:36:31 08/28/19 25 08/29/2024 CBC WITH DIFFE RENTI AL/PL ATELE T eos (absolute) 0.2 x10e3 /uL 0.0-0. 4 Not Available [facility] ([facility]) [address] [facility], [place], [address], 08/29/2024 10:36:31 08/28/19 25 08/29/2024 CBC WITH DIFFE RENTI AL/PL ATELE T baso (absolute) 0.0 x10e3 /uL 0.0-0. 2 Not Available [facility] ([facility]) [address] [facility], [place], [address], 08/29/2024 10:36:31 08/28/19 25 08/29/2024 CBC WITH DIFFE RENTI AL/PL ATELE T immature granulocytes 0 % notest ab. Not Available [facility] ([facility]) [address] [facility], [place], [address], 08/29/2024 10:36:31 08/28/19 25 08/29/2024 CBC WITH DIFFE RENTI AL/PL ATELE T immature grans (abs) 0.0 x10e3 /uL 0.0-0. 1 Not Available [facility] ([facility]) [address] [facility], [place], [address], 08/29/2024 10:36:31 09/02/19 25 09/04/2024 Helic obact er pylor i Ag [Pres ence] in Stool by Immun oassa y helicobacter pylori Ag [presence] in stool by immunoassay Negati ve text: negati ve Helic obact er pylor i Antig en Stool Negat larry Negat larry 09/04 1:46 PM EDI ANALYST [facility] ([facility]) Not Available Not Available 09/15/2024 12:27:14 09/03/19 25 09/05/2024 COLOF IT,OC CULT BLOOD ,FECA L,IA occult blood, fecal, ia NEGATI VE negati ve Not Available [facility] ([facility]) [address] [place], [address], 09/05/2024 14:09:38 10/01/19 25 10/02/2024 LIPID PANEL cholesterol, total 216 mg/dL 100-19 9 above high normal Not Available [facility] ([facility]) [address] [place], [address], 10/02/2024 08:38:42 10/01/19 25 10/02/2024 LIPID PANEL triglyceride s 151 mg/dL 0-149 above high normal Not Available [facility] ([facility]) [address] [place], [address], 10/02/2024 08:38:42 10/01/19 25 10/02/2024 LIPID PANEL HDL cholesterol 61 mg/dL >39 Not Available [facility] ([facility]) [address] [place], [address], 10/02/2024 08:38:42 10/01/19 25 10/02/2024 LIPID PANEL VLDL cholesterol selene 27 mg/dL 5-40 Not Available [facility] ([facility]) [address] [place], [address], 10/02/2024 08:38:42 10/01/19 25 10/02/2024 LIPID PANEL LDL chol calc ([facility]) 128 mg/dL 0-99 above high normal Not Available [facility] ([facility]) [address] [place], [address], 10/02/2024 08:38:42 10/01/19 25 10/02/2024 IRON AND TIBC iron bind.cap.(TI BC) 395 ug/dL 250-45 0 Not Available [facility] ([facility]) [address] [place], [address], 10/02/2024 08:38:43 10/01/19 25 10/02/2024 IRON AND TIBC UIBC 332 ug/dL 131-42 5 Not Available [facility] ([facility]) [address] [place], [address], 10/02/2024 08:38:43 10/01/19 25 10/02/2024 IRON AND TIBC iron 63 ug/dL 27-159 Not Available [facility] ([facility]) [address] [place], [address], 10/02/2024 08:38:43 10/01/19 25 10/02/2024 IRON AND TIBC iron saturation 16 % 15-55 Not Available [facility] ([facility]) [address] [place], [address], 10/02/2024 08:38:43 10/01/19 25 10/02/2024 TORIE TIN ferritin 13 NG/mL 15-150 below low normal Not Available [facility] ([facility]) [address] [place], [address], 10/02/2024 08:38:44 10/01/19 25 10/02/2024 CBC, PLATE LET, NO DIFFE RENTI AL WBC 5.5 x10e3 /uL 3.4-10 .8 Not Available [facility] ([facility]) [address] [place], [address], 10/02/2024 08:38:46 10/01/19 25 10/02/2024 CBC, PLATE LET, NO DIFFE RENTI AL RBC 4.64 x10e6 /uL 3.77-5 .28 Not Available [facility] ([facility]) [address] [place], [address], 10/02/2024 08:38:46 10/01/19 25 10/02/2024 CBC, PLATE LET, NO DIFFE RENTI AL hemoglobin 10.8 g/dL 11.1-1 5.9 below low normal Not Available [facility] ([facility]) [address] [facility], [place], [address], 10/02/2024 08:38:46 10/01/1910/02/2024 CBC, PLATE LET, NO DIFFE RENTI AL hematocrit 36.0 % 34.0-4 6.6 Not Available [facility] ([facility]) [address] [facility], [place], [address], 10/02/2024 08:38:46 10/01/1910/02/2024 CBC, PLATE LET, NO DIFFE RENTI AL MCV 78 fL 79-97 below low normal Not Available [facility] ([facility]) [address] [facility], [place], [address], 10/02/2024 08:38:46 10/01/1910/02/2024 CBC, PLATE LET, NO DIFFE RENTI AL MCH 23.3 pg 26.6-3 3.0 below low normal Not Available [facility] ([facility]) [address] [facility], [place], [address], 10/02/2024 08:38:46 10/01/1910/02/2024 CBC, PLATE LET, NO DIFFE RENTI AL MCHC 30.0 g/dL 31.5-3 5.7 below low normal Not Available [facility] ([facility]) [address] [place], [address], 10/02/2024 08:38:46 10/01/1910/02/2024 CBC, PLATE LET, NO DIFFE RENTI AL RDW 18.8 % 11.7-1 5.4 above high normal Not Available [facility] ([facility]) [address] [place], [address], 10/02/2024 08:38:46 10/01/19 25 10/02/2024 CBC, PLATE LET, NO DIFFE RENTI AL platelets 411 x10e3 /uL 150-45 0 Not Available [facility] ([facility]) [address] [facility], [place], [address], 10/02/2024 08:38:46 10/09/1910/08/2024 Hemog lobin and Hemat ocrit panel - Blood hemoglobin [mass/volume ] in blood 10.9 g/dL low: 11.9g/ dLhigh : 15.8g/ dL low Hemog lobin 10.9 (L) 11.9 - 15.8 g/dL 10/08 7:21 PM [facility] Not Available Not Available 10/09/2024 11:25:25 10/09/19 25 10/08/2024 Hemog lobin and Hemat ocrit panel - Blood hematocrit [volume fraction] of blood by automated count 35.8 % low: 34.8%h igh: 46.1% Hemat ocrit 35.8 34.8 - 46.1 % 10/08 7:21 PM [facility] Not Available Not Available 10/09/2024 11:25:25 10/09/19 25 10/08/2024 Hemog lobin and Hemat ocrit panel - Blood interpretati on and review of laboratory results Abnorm al Not Available Not Available 11:25:25 10/09/19 25 10/08/2024 Blood type and Indir ect antib kayla scree n panel - Blood blood group antibody screen [presence] in serum or plasma NEG Antib kayla Scree n NEG 10/08 4:24 PM [facility] Not Available Not Available 10/09/2024 11:25:25 10/09/19 25 10/08/2024 Blood type and Indir ect antib kayla scree n panel - Blood ABO and Rh group [type] in blood O POS ABO Rh O POS 10/08 4:24 PM [facility] Not Available Not Available 10/09/2024 11:25:25 10/09/19 25 10/08/2024 Compr ehens larry metab olic 2000 panel - Serum or Plasm a urea nitrogen [mass/volume ] in serum or plasma 11 mg/dL low: 7mg/dL high: 26mg/d L BUN 11 7 - 26 mg/dL 10/08 4:02 PM [facility] Not Available Not Available 10/09/2024 11:25:25 10/09/1910/08/2024 Compr ehens larry metab olic 1999 panel - Serum or Plasm a creatinine [mass/volume ] in serum or plasma 0.63 mg/dL low: 0.56mg /dLhig h: 0.96mg /dL Creat inine 0.63 0.56 - 0.96 mg/dL 10/08 4:02 PM [facility] Not Available Not Available 10/09/2024 11:25:25 10/09/1910/08/2024 Compr ehens larry metab olic 1999 panel - Serum or Plasm a sodium [moles/volum e] in serum or plasma 138 mmol/ L low: 136mmo l/Lhig h: 145mmo l/L Sodiu m 138 136 - 145 mmol/ L 10/08 4:02 PM [facility] Not Available Not Available 10/09/2024 11:25:25 10/09/1910/08/2024 Compr ehens larry metab olic 1999 panel - Serum or Plasm a potassium [moles/volum e] in serum or plasma 4.2 mmol/ L low: 3.5mmo l/Lhig h: 4.5mmo l/L Potas sium 4.2 3.5 - 4.5 mmol/ L 10/08 4:02 PM [facility] Not Available Not Available 10/09/2024 11:25:25 10/09/1910/08/2024 Compr ehens larry metab olic 1999 panel - Serum or Plasm a chloride [moles/volum e] in serum or plasma 107 mmol/ L low: 98mmol /Lhigh : 107mmo l/L Chlor emre 107 98 - 107 mmol/ L 10/08 4:02 PM [facility] Not Available Not Available 10/09/2024 11:25:25 10/09/19 25 10/08/2024 Compr ehens larry metab olic 1999 panel - Serum or Plasm a carbon dioxide, total [moles/volum e] in serum or plasma 22 mmol/ L low: 22mmol /Lhigh : 29mmol /L CO2 22 22 - 29 mmol/ L 10/08 4:02 PM [facility] Not Available Not Available 10/09/2024 11:25:25 10/09/19 25 10/08/2024 Compr ehens larry metab olic 2000 panel - Serum or Plasm a glucose [mass/volume ] in serum or plasma 88 mg/dL low: 70mg/d Lhigh: 99mg/d L Gluco se 88 70 - 99 mg/dL 10/08 4:02 PM [facility] Not Available Not Available 10/09/2024 11:25:25 10/09/1910/08/2024 Compr [employer] larry metab olic 2000 panel - Serum or Plasm a calcium [moles/volum e] in serum or plasma 8.9 mg/dL low: 8.4mg/ dLhigh : 10.2mg /dL Calci um 8.9 8.4 - 10.2 mg/dL 10/08 4:02 PM [facility] Not Available Not Available 10/09/2024 11:25:25 10/09/1910/08/2024 Compr [employer] larry metab olic 2000 panel - Serum or Plasm a protein [mass/volume ] in serum or plasma 6.8 g/dL low: 6g/dLh igh: 8.3g/d L Prote in Total 6.8 6.0 - 8.3 g/dL 10/08 4:02 PM [facility] Not Available Not Available 10/09/2024 11:25:25 10/09/19 25 10/08/2024 Compr [employer] larry metab olic 2000 panel - Serum or Plasm a albumin [mass/volume ] in serum or plasma by bromocresol green (bcg) dye binding method 3.9 g/dL low: 3.4g/d Lhigh: 5g/dL Album in 3.9 3.4 - 5.0 g/dL 10/08 4:02 PM [facility] Not Available Not Available 10/09/2024 11:25:25 10/09/19 25 10/08/2024 Compr ehens larry metab olic 1999 panel - Serum or Plasm a bilirubin.to maximilian [mass/volume ] in serum or plasma 0.2 mg/dL low: 0.2mg/ dLhigh : 1.2mg/ dL Bilir ubin Total 0.2 0.2 - 1.2 mg/dL 10/08 4:02 PM [facility] Not Available Not Available 10/09/2024 11:25:25 10/09/19 25 10/08/2024 Compr ehens larry metab olic 1999 panel - Serum or Plasm a alkaline phosphatase [enzymatic activity/vol ume] in serum or plasma 111 U/L low: 40U/Lh igh: 150U/L Alkal ine Phosp hatas e 111 40 - 150 U/L 10/08 4:02 PM [facility] Not Available Not Available 10/09/2024 11:25:25 10/09/19 25 10/08/2024 Compr ehens larry metab olic 2000 panel - Serum or Plasm a alanine aminotransfe rase [enzymatic activity/vol ume] in serum or plasma by no addition of P-5'-P 23 U/L low: 5U/Lhi gh: 55U/L ALT 23 5 - 55 U/L 10/08 4:02 PM [facility] Not Available Not Available 10/09/2024 11:25:25 10/09/19 25 10/08/2024 Compr ehens larry metab olic 1999 panel - Serum or Plasm a aspartate aminotransfe rase [enzymatic activity/vol ume] in serum or plasma 25 U/L low: 5U/Lhi gh: 34U/L AST 25 5 - 34 U/L 10/08 4:02 PM [facility] Not Available Not Available 10/09/2024 11:25:25 10/09/19 25 10/08/2024 Compr ehens larry metab olic 2000 panel - Serum or Plasm a anion gap 9 low: 6high: 16 Anion Gap 9 6 - 16 10/08 4:02 PM [facility] Not Available Not Available 10/09/2024 11:25:25 10/09/19 25 10/08/2024 Compr ehens larry metab olic 2000 panel - Serum or Plasm a urea nitrogen/cre atinine [mass ratio] in serum or plasma 17 low: 7high: 23 BUN/C reati nine Ratio 17 7 - 23 10/08 4:02 PM [facility] Not Available Not Available 10/09/2024 11:25:25 10/09/19 25 10/08/2024 Compr ehens larry metab olic 2000 panel - Serum or Plasm a osmolality calculated 285 text: 275 - 295 mOsm/k g Osmol alivamsi Calcu lated 285 275 - 295 mOsm/ kg 10/08 4:02 PM [facility] Not Available Not Available 10/09/2024 11:25:25 10/09/19 25 10/08/2024 Compr ehens larry metab olic 2000 panel - Serum or Plasm a albumin/glob ulin ratio 1.3 low: 1.1hig h: 2.3 Album in/Gl obuli n Ratio 1.3 1.1 - 2.3 10/08 4:02 PM [facility] Not Available Not Available 10/09/2024 11:25:25 10/09/19 25 10/08/2024 Compr ehens larry metab olic 2000 panel - Serum or Plasm a glomerular filtration rate/1.73 sq M.predicted [volume rate/area] in serum, plasma or blood by creatinine-b ased formula (CKD-epi 2020) text: >=90 mL/min /1.73 m2 eGFR by CKD-E PI >90 >=90 mL/mi n/1.7 3 m2 10/08 4:02 PM [facility] Not Available Not Available 10/09/2024 11:25:25 10/09/19 25 10/08/2024 Compr ehens laryr metab olic 2000 panel - Serum or Plasm a interpretati on and review of laboratory results Normal Not Available Not Available 02/2025 11:25:25 10/09/19 25 10/08/2024 CBC W Auto Diffe renti al panel - Blood leukocytes [#/volume] in blood by automated count 6.3 text: 4.0 - 10.7 x10e9/ L WBC 6.3 4.0 - 10.7 x10E9 /L 10/08 3:40 PM [facility] Not Available Not Available 10/09/2024 11:25:25 10/09/19 25 10/08/2024 CBC W Auto Diffe kenyattati al panel - Blood erythrocytes [#/volume] in blood by automated count 4.54 text: 3.90 - 5.20 x10e12 /L RBC Count 4.54 3.90 - 5.20 x10E1 2/L 10/08 3:40 PM [facility] Not Available Not Available 10/09/2024 11:25:25 10/09/19 25 10/08/2024 CBC W Auto Diffe ernesto al panel - Blood hemoglobin [mass/volume ] in blood 10.9 g/dL low: 11.9g/ dLhigh : 15.8g/ dL low Hemog lobin 10.9 (L) 11.9 - 15.8 g/dL 10/08 3:40 PM [facility] Not Available Not Available 10/09/2024 11:25:25 10/09/1910/08/2024 CBC W Auto Diffe ernesto al panel - Blood hematocrit [volume fraction] of blood by automated count 34.6 % low: 34.8%h igh: 46.1% low Hemat ocrit 34.6 (L) 34.8 - 46.1 % 10/08 3:40 PM [facility] Not Available Not Available 10/09/2024 11:25:25 10/09/19 25 10/08/2024 CBC W Auto Diffe renti al panel - Blood MCV [entitic volume] by automated count 76.2 fL low: 80fLhi gh: 98fL low MCV 76.2 (L) 80.0 - 98.0 fL 10/08 3:40 PM [facility] Not Available Not Available 10/09/2024 11:25:25 10/09/19 25 10/08/2024 CBC W Auto Diffe renti al panel - Blood MCH [entitic mass] by automated count 24 pg low: 26.7pg high: 33.6pg low MCH 24.0 (L) 26.7 - 33.6 pg 10/08 3:40 PM [facility] Not Available Not Available 10/09/2024 11:25:25 10/09/19 25 10/08/2024 CBC W Auto Diffe renti al panel - Blood MCHC [mass/volume ] by automated count 31.5 g/dL low: 31.7g/ dLhigh : 36.3g/ dL low MCHC 31.5 (L) 31.7 - 36.3 g/dL 10/08 3:40 PM [facility] Not Available Not Available 10/09/2024 11:25:25 10/09/19 25 10/08/2024 CBC W Auto Diffe kenyattati al panel - Blood erythrocyte distribution width [ratio] by automated count 19.3 % low: 11.3%h igh: 14.8% high RDW-C V 19.3 (H) 11.3 - 14.8 % 10/08 3:40 PM [facility] Not Available Not Available 10/09/2024 11:25:25 10/09/1910/08/2024 CBC W Auto Diffe kenyattati al panel - Blood platelets [#/volume] in blood by automated count 392 text: 150 - 420 x10e9/ L Plate let Count 392 150 - 420 x10E9 /L 10/08 3:40 PM [facility] Not Available Not Available 10/09/2024 11:25:25 10/09/19 25 10/08/2024 CBC W Auto Diffe renti al panel - Blood platelet mean volume [entitic volume] in blood by automated count 9.6 fL low: 7.8fLh igh: 11.4fL MPV 9.6 7.8 - 11.4 fL 10/08 3:40 PM [facility] Not Available Not Available 10/09/2024 11:25:25 10/09/19 25 10/08/2024 CBC W Auto Diffe renti al panel - Blood neutrophils/ 100 leukocytes in blood by automated count 62.1 % low: 41%hig h: 74% Neutr ophil % 62.1 41.0 - 74.0 % 10/08 3:40 PM [facility] Not Available Not Available 10/09/2024 11:25:25 10/09/19 25 10/08/2024 CBC W Auto Diffe renti al panel - Blood lymphocytes/ 100 leukocytes in blood by automated count 26.5 % low: 17%hig h: 47% Lymph ocyte % 26.5 17.0 - 47.0 % 10/08 3:40 PM [facility] Not Available Not Available 10/09/2024 11:25:25 10/09/19 25 10/08/2024 CBC W Auto Diffe renti al panel - Blood monocytes/10 0 leukocytes in blood by automated count 6.8 % low: 3%high : 11% Monoc yte % 6.8 3.0 - 11.0 % 10/08 3:40 PM [facility] Not Available Not Available 10/09/2024 11:25:25 10/09/19 25 10/08/2024 CBC W Auto Diffe renti al panel - Blood eosinophils/ 100 leukocytes in blood by automated count 3.8 % low: 0%high : 7% Eosin ophil % 3.8 0.0 - 7.0 % 10/08 3:40 PM [facility] Not Available Not Available 10/09/2024 11:25:25 10/09/19 25 10/08/2024 CBC W Auto Diffe renti al panel - Blood basophils/10 0 leukocytes in blood by automated count 0.6 % low: 0%high : 1.6% Basop hil % 0.6 0.0 - 1.6 % 10/08 3:40 PM [facility] Not Available Not Available 10/09/2024 11:25:25 10/09/19 25 10/08/2024 CBC W Auto Diffe renti al panel - Blood immature granulocytes /100 leukocytes in blood by automated count 0.2 % low: 0%high : 1% Immat ure Granu locyt es % 0.2 0.0 - 1.0 % 10/08 3:40 PM [facility] Not Available Not Available 10/09/2024 11:25:25 10/09/19 25 10/08/2024 CBC W Auto Diffe renti al panel - Blood neutrophils [#/volume] in blood by automated count 3.92 text: 1.60 - 7.50 x10e9/ L Neutr ophil Absol [place] 3.92 1.60 - 7.50 x10E9 /L 10/08 3:40 PM [facility] Not Available Not Available 10/09/2024 11:25:25 10/09/1910/08/2024 CBC W Auto Diffe renti al panel - Blood lymphocytes [#/volume] in blood by automated count 1.67 text: 1.00 - 4.40 x10e9/ L Lymph ocyte Absol [place] 1.67 1.00 - 4.40 x10E9 /L 10/08 3:40 PM [facility] Not Available Not Available 10/09/2024 11:25:25 10/09/1910/08/2024 CBC W Auto Diffe renti al panel - Blood monocytes [#/volume] in blood by automated count 0.43 text: 0.15 - 1.00 x10e9/ L Monoc yte Absol [place] 0.43 0.15 - 1.00 x10E9 /L 10/08 3:40 PM [facility] Not Available Not Available 10/09/2024 11:25:25 10/09/19 25 10/08/2024 CBC W Auto Diffe renti al panel - Blood eosinophils [#/volume] in blood 0.24 text: 0.00 - 0.60 x10e9/ L Eosin ophil Absol [place] 0.24 0.00 - 0.60 x10E9 /L 10/08 3:40 PM [facility] Not Available Not Available 10/09/2024 11:25:25 03/0610/08/2024 CBC W Auto Diffe renti al panel - Blood basophils [#/volume] in blood by automated count 0.04 text: 0.00 - 0.13 x10e9/ L Basop hil Absol [place] 0.04 0.00 - 0.13 x10E9 /L 10/08 3:40 PM [facility] Not Available Not Available 10/09/2024 11:25:25 10/09/19 25 10/08/2024 CBC W Auto Diffe renti al panel - Blood interpretati on and review of laboratory results Abnorm al Not Available Not Available 11:25:25 10/10/19 25 10/09/2024 CBC W Auto Diffe renti al panel - Blood leukocytes [#/volume] in blood by automated count 5.3 text: 4.0 - 10.7 x10e9/ L WBC 5.3 4.0 - 10.7 x10E9 /L 10/09 2:32 AM [facility] Not Available Not Available 10/09/2024 11:25:25 10/10/19 25 10/09/2024 CBC W Auto Diffe renti al panel - Blood erythrocytes [#/volume] in blood by automated count 4.21 text: 3.90 - 5.20 x10e12 /L RBC Count 4.21 3.90 - 5.20 x10E1 2/L 10/09 2:32 AM [facility] Not Available Not Available 10/09/2024 11:25:25 10/10/19 25 10/09/2024 CBC W Auto Diffe renti al panel - Blood hemoglobin [mass/volume ] in blood 10 g/dL low: 11.9g/ dLhigh : 15.8g/ dL low Hemog lobin 10.0 (L) 11.9 - 15.8 g/dL 10/09 2:32 AM [facility] Not Available Not Available 10/09/2024 11:25:25 10/10/19 25 10/09/2024 CBC W Auto Diffe renti al panel - Blood hematocrit [volume fraction] of blood by automated count 32.2 % low: 34.8%h igh: 46.1% low Hemat ocrit 32.2 (L) 34.8 - 46.1 % 10/09 2:32 [facility] Not Available 10/09/2024 11:25:25 10/10/19 25 10/09/2024 CBC W Auto Diffe renti al panel - Blood MCV [entitic volume] by automated count 76.5 fL low: 80fLhi gh: 98fL low MCV 76.5 (L) 80.0 - 98.0 fL 10/09 2:32 AM [facility] Not Available 10/09/2024 11:25:25 10/10/1910/09/2024 CBC W Auto Diffe renti al panel - Blood MCH [entitic mass] by automated count 23.8 pg low: 26.7pg high: 33.6pg low MCH 23.8 (L) 26.7 - 33.6 pg 10/09 2:32 AM [facility] Not Available 10/09/2024 11:25:25 10/10/1910/09/2024 CBC W Auto Diffe renti al panel - Blood MCHC [mass/volume ] by automated count 31.1 g/dL low: 31.7g/ dLhigh : 36.3g/ dL low MCHC 31.1 (L) 31.7 - 36.3 g/dL 10/09 2:32 AM [facility] [employer] [facility] Not Available Not Available 10/09/2024 11:25:25 10/10/1910/09/2024 CBC W Auto Diffe renti al panel - Blood erythrocyte distribution width [ratio] by automated count 19.6 % low: 11.3%h igh: 14.8% high RDW-C V 19.6 (H) 11.3 - 14.8 % 10/09 2:32 AM [facility] [employer] [facility] Not Available Not Available 10/09/2024 11:25:25 10/10/19 25 10/09/2024 CBC W Auto Diffe renti al panel - Blood platelets [#/volume] in blood by automated count 340 text: 150 - 420 x10e9/ L Plate let Count 340 150 - 420 x10E9 /L 10/09 2:32 AM [facility] Not Available Not Available 10/09/2024 11:25:25 10/10/19 25 10/09/2024 CBC W Auto Diffe renti al panel - Blood platelet mean volume [entitic volume] in blood by automated count 9.3 fL low: 7.8fLh igh: 11.4fL MPV 9.3 7.8 - 11.4 fL 10/09 2:32 AM [facility] Not Available Not Available 10/09/2024 11:25:25 10/10/1910/09/2024 CBC W Auto Diffe renti al panel - Blood neutrophils/ 100 leukocytes in blood by automated count 73.3 % low: 41%hig h: 74% Neutr ophil % 73.3 41.0 - 74.0 % 10/09 2:32 AM [facility] Not Available Not Available 10/09/2024 11:25:25 10/10/19 25 10/09/2024 CBC W Auto Diffe renti al panel - Blood lymphocytes/ 100 leukocytes in blood by automated count 20.8 % low: 17%hig h: 47% Lymph ocyte % 20.8 17.0 - 47.0 % 10/09 2:32 AM [facility] Not Available Not Available 10/09/2024 11:25:25 10/10/19 25 10/09/2024 CBC W Auto Diffe renti al panel - Blood monocytes/10 0 leukocytes in blood by automated count 4.3 % low: 3%high : 11% Monoc yte % 4.3 3.0 - 11.0 % 10/09 2:32 AM [facility] Not Available Not Available 10/09/2024 11:25:25 10/10/19 25 10/09/2024 CBC W Auto Diffe renti al panel - Blood eosinophils/ 100 leukocytes in blood by automated count 0.6 % low: 0%high : 7% Eosin ophil % 0.6 0.0 - 7.0 % 10/09 2:32 AM [facility] Not Available Not Available 10/09/2024 11:25:25 10/10/19 25 10/09/2024 CBC W Auto Diffe renti al panel - Blood basophils/10 0 leukocytes in blood by automated count 0.6 % low: 0%high : 1.6% Basop hil % 0.6 0.0 - 1.6 % 10/09 2:32 AM [facility] Not Available Not Available 10/09/2024 11:25:25 10/10/19 25 10/09/2024 CBC W Auto Diffe renti al panel - Blood immature granulocytes /100 leukocytes in blood by automated count 0.4 % low: 0%high : 1% Immat ure Granu locyt es % 0.4 0.0 - 1.0 % 10/09 2:32 AM [facility] Not Available Not Available 10/09/2024 11:25:25 10/10/1910/09/2024 CBC W Auto Diffe renti al panel - Blood neutrophils [#/volume] in blood by automated count 3.88 text: 1.60 - 7.50 x10e9/ L Neutr ophil Absol [place] 3.88 1.60 - 7.50 x10E9 /L 10/09 2:32 AM [facility] Not Available Not Available 10/09/2024 11:25:25 10/10/19 25 10/09/2024 CBC W Auto Diffe renti al panel - Blood lymphocytes [#/volume] in blood by automated count 1.1 text: 1.00 - 4.40 x10e9/ L Lymph ocyte Absol [place] 1.10 1.00 - 4.40 x10E9 /L 10/09 2:32 AM [facility] Not Available Not Available 10/09/2024 11:25:25 10/10/19 25 10/09/2024 CBC W Auto Diffe renti al panel - Blood monocytes [#/volume] in blood by automated count 0.23 text: 0.15 - 1.00 x10e9/ L Monoc yte Absol [place] 0.23 0.15 - 1.00 x10E9 /L 10/09 2:32 AM [facility] Not Available Not Available 10/09/2024 11:25:25 10/10/19 25 10/09/2024 CBC W Auto Diffe renti al panel - Blood eosinophils [#/volume] in blood 0.03 text: 0.00 - 0.60 x10e9/ L Eosin ophil Absol [place] 0.03 0.00 - 0.60 x10E9 /L 10/09 2:32 AM [facility] Not Available Not Available 10/09/2024 11:25:25 10/10/19 25 10/09/2024 CBC W Auto Diffe renti al panel - Blood basophils [#/volume] in blood by automated count 0.03 text: 0.00 - 0.13 x10e9/ L Basop hil Absol [place] 0.03 0.00 - 0.13 x10E9 /L 10/09 2:32 AM [facility] Not Available Not Available 10/09/2024 11:25:25 10/10/19 25 10/09/2024 CBC W Auto Diffe renti al panel - Blood interpretati on and review of laboratory results Abnorm al Not Available Not Available 11:25:25 10/10/19 25 10/09/2024 Magne sium [Mass /volu me] in Serum or Plasm a magnesium [mass/volume ] in serum or plasma 1.9 mg/dL low: 1.6mg/ dLhigh : 2.6mg/ dL Magne sium 1.9 1.6 - 2.6 mg/dL 10/09 2:48 AM [facility] Not Available Not Available 10/09/2024 11:25:25 10/10/19 25 10/09/2024 Magne sium [Mass /volu me] in Serum or Plasm a interpretati on and review of laboratory results Normal Not Available Not Available 02/2025 11:25:25 10/10/19 25 10/09/2024 Phosp hate [Mass /volu me] in Serum or Plasm a phosphate [mass/volume ] in serum or plasma 4.4 mg/dL low: 2.9mg/ dLhigh : 5.1mg/ dL Phosp horus 4.4 2.9 - 5.1 mg/dL 10/09 2:48 AM [facility] [employer] [facility] Not Available Not Available 10/09/2024 11:25:25 10/10/1910/09/2024 Phosp hate [Mass /volu me] in Serum or Plasm a interpretati on and review of laboratory results Normal Not Available Not Available 02/2025 11:25:25 10/10/1910/09/2024 Basic metab olic 1999 panel - Serum or Plasm a urea nitrogen [mass/volume ] in serum or plasma 9 mg/dL low: 7mg/dL high: 26mg/d L BUN 9 7 - 26 mg/dL 10/09 2:48 AM [facility] [employer] [facility] Not Available Not Available 10/09/2024 11:25:25 10/10/1910/09/2024 Basic metab olic 2000 panel - Serum or Plasm a creatinine [mass/volume ] in serum or plasma 0.6 mg/dL low: 0.56mg /dLhig h: 0.96mg /dL Creat inine 0.60 0.56 - 0.96 mg/dL 10/09 2:48 AM [facility] [employer] [facility] Not Available Not Available 10/09/2024 11:25:25 10/10/1910/09/2024 Basic metab olic 2000 panel - Serum or Plasm a sodium [moles/volum e] in serum or plasma 140 mmol/ L low: 136mmo l/Lhig h: 145mmo l/L Sodiu m 140 136 - 145 mmol/ L 10/09 2:48 AM [facility] [employer] [facility] Not Available Not Available 10/09/2024 11:25:25 10/10/19 25 10/09/2024 Basic metab olic 2000 panel - Serum or Plasm a potassium [moles/volum e] in serum or plasma 4.4 mmol/ L low: 3.5mmo l/Lhig h: 4.5mmo l/L Potas sium 4.4 3.5 - 4.5 mmol/ L 10/09 2:48 AM [facility]I ANALYST [facility] Not Available Not Available 10/09/2024 11:25:25 10/10/1910/09/2024 Basic metab olic 2000 panel - Serum or Plasm a chloride [moles/volum e] in serum or plasma 110 mmol/ L low: 98mmol /Lhigh : 107mmo l/L high Chlor emre 110 (H) 98 - 107 mmol/ L 10/09 2:48 AM [facility] Not Available Not Available 10/09/2024 11:25:25 10/10/1910/09/2024 Basic metab olic 2000 panel - Serum or Plasm a carbon dioxide, total [moles/volum e] in serum or plasma 21 mmol/ L low: 22mmol /Lhigh : 29mmol /L low CO2 21 (L) 22 - 29 mmol/ L 10/09 2:48 AM [facility] Not Available Not Available 10/09/2024 11:25:25 10/10/1910/09/2024 Basic metab olic 2000 panel - Serum or Plasm a glucose [mass/volume ] in serum or plasma 104 mg/dL low: 70mg/d Lhigh: 99mg/d L high Gluco se 104 (H) 70 - 99 mg/dL 10/09 2:48 AM [facility] Not Available Not Available 10/09/2024 11:25:25 10/10/1910/09/2024 Basic metab olic 2000 panel - Serum or Plasm a calcium [moles/volum e] in serum or plasma 8.4 mg/dL low: 8.4mg/ dLhigh : 10.2mg /dL Calci um 8.4 8.4 - 10.2 mg/dL 10/09 2:48 AM EDI ANALYST [facility] Not Available Not Available 10/09/2024 11:25:25 10/10/19 25 10/09/2024 Basic metab olic 2000 panel - Serum or Plasm a anion gap 9 low: 6high: 16 Anion Gap 9 6 - 16 10/09 2:48 AM EDI ANALYST [employer] [facility] Not Available Not Available 10/09/2024 11:25:25 10/10/19 25 10/09/2024 Basic metab olic 2000 panel - Serum or Plasm a urea nitrogen/cre atinine [mass ratio] in serum or plasma 15 low: 7high: 23 BUN/C reati nine Ratio 15 7 - 23 10/09 2:48 AM EDI ANALYST [employer] [facility] Not Available Not Available 10/09/2024 11:25:25 10/10/19 25 10/09/2024 Basic metab olic 2000 panel - Serum or Plasm a osmolality calculated 289 text: 275 - 295 mOsm/k g Osmol yudelka Lewis lated 289 275 - 295 mOsm/ kg 10/09 2:48 AM EDI ANALYST [employer] [facility] Not Available Not Available 10/09/2024 11:25:25 10/10/19 25 10/09/2024 Basic metab olic 2000 panel - Serum or Plasm a glomerular filtration rate/1.73 sq M.predicted [volume rate/area] in serum, plasma or blood by creatinine-b ased formula (CKD-epi 2020) text: >=90 mL/min /1.73 m2 eGFR by CKD-E PI >90 >=90 mL/mi n/1.7 3 m2 10/09 2:48 AM EDI ANALYST [employer] [facility] Not Available Not Available 10/09/2024 11:25:25 10/10/19 25 10/09/2024 Basic metab olic 2000 panel - Serum or Plasm a interpretati on and review of laboratory results Abnorm al Not Available Not Available 11:25:25 04/24/20 24 04/23/2024 XR, hand No observ ation record ed. [address] , [place], [address], 06/19/2024 11:24:52 07/08/20 24 07/08/2024 elect emma diogr am No observ ation record ed. [facility] (Radiology) [id number], [facility] [place], [address], 07/10/2024 12:26:06 07/08/20 24 07/08/2024 elect emma singh am No observ ation record ed. [facility] (Radiology) [address], [place], [address], 07/10/2024 12:26:06 07/08/20 24 07/08/2024 US, echoc ardio gram No observ ation record ed. [facility] [address], [place], [address], 07/10/2024 12:26:07 08/31/19 25 08/28/2024 XR, chest , 2 view No observ ation record ed. [facility] [place] (Central Scheduling) [address], [place], [address], 09/01/2024 12:56:55 Result Notes None recorded. Problems Name Problem SNOMED Code Status Onset Date Resolution Date Notes Provider Name and Address Organization Details Recorded Time Past history of eclampsia 121628219 Active 2021 Sue Snow MD Attn: Accounting ,[address] [place], [address] , [facility] 4 13:32:06 History of traumatic brain injury 16635889414 100 Active 2021 Cedric Martinez MD Attn: Accounting ,[address] [place], [address] , [facility] 3 20:37:50 Seizure disorder 746498026 Active 2013 Cedric Martinez MD Attn: Accounting ,[address] [place], [address] , [place] - [facility] 3 20:38:02 Chronic obstructi ve pulmonary disease 67685121 Active 2013 Not Available [facility] 3 22:53:00 Anxiety 49313248 Active 2022 Cedric Martinez MD Attn: Accounting ,[address] [place], [address] , [place] - [facility] 3 20:37:29 History of diabetes mellitus type 2 894907445 Active 2022 Cedric Martinez MD Attn: Accounting ,[address] [facility], [place], [address] , [place] - [facility] 3 20:37:41 History of malignant neoplasm of uterine body 045185497 Active 2022 s/p total hysterect brooks in 2003 Cedric Martinez MD Attn: Accounting ,[address] [facility], [place], [address] , [place] - [facility] 3 20:37:47 History of bypass of stomach 704969897 Active 2022 Cedric Martinez MD Attn: Accounting ,[address] [facility], [place], [address] , [place] - [facility] 3 20:37:38 Compressi on fracture of lumbar spine 970873830 Active 2022 Cedric Martinez MD Attn: Accounting ,[address] [facility], [place], [address] , [place] - [facility] 3 20:37:33 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 931022765 Active 2022 Robina Jones LPN null, [place] - [facility] 4 18:08:58 Chronic back pain 609123087 Active 2023 xray 07/27-mod spondylos is-s/p sx - sees specialsi t Dr.Kumar ifeanyi Snow MD Attn: Accounting ,[address] [facility], [place], [address] , [place] - [facility] 4 10:40:33 Osteopeni a 038861301 Active 2023 dexa 07/27 Sue Snow MD Attn: Accounting ,[address] [facility], [place], [address] , [place] - [facility] 4 10:24:32 Mixed anxiety and depressiv e disorder 331750149 Active 2023 -pt has psych 03/17/24 Sue Sonw MD Attn: Accounting ,[address] [place], [place], [address] [place] [address] , [facility] 4 14:18:23 Essential hypertens ion 24633965 Active 2023 Sue Snow MD Attn: Accounting ,[address] [place] [address], [place], [address] [place] [address] , [facility] 4 10:21:46 Hyperlipi demia 42001564 Active 2023 Sue Snow MD Attn: Accounting ,[address] [place] [address], [place], [address] [place] [address] , [facility] 4 10:21:48 Smoker 45065529 Active Cedric Martinez MD Attn: Accounting ,[address] [place] [address], [place], [address] [place] [address] , [facility] 3 20:38:06 Problem Notes None recorded. Procedures Surgical History Date Name Laterality Status Provider Name and Address Organization Details Recorded Time 10/25 Carpal tunnel surgery completed Jhoana Lew MA [facility] 4 10:09:43 08/14 esophagogastroduodenoscopy completed Shena Covarrubias MA [facility] 3 13:30:18 08/14 colonoscopy completed Shena Covarrubias MA [facility] 3 13:31:37 05/03 Gastric Bypass completed Ronda Gray [facility] 6 16:12:14 08/05 Total hysterectomy completed Nishi Aguilar APN, [employer] Attn: Accounting, [address] [place], [address], [facility] 3 14:37:31 lobectomy of lung completed Mallory Stephens MA [facility] 0 14:50:44 laparoamnioscopy completed Mallory Stephens [place] [facility] 0 14:55:03 delivery completed MAURI Veras - [facility] 0 14:55:58 Imaging Results Imaging Date Name Status LastModified by Organization Details LastModified Time 4 XR, hand completed [facility] [address] [place], [address], 06/19/2024 11:24:52 4 electrocardiogram completed [facility] (Radiology) [address] [place], [place], [address], 07/10/2024 12:26:06 4 electrocardiogram completed [facility] (Radiology) [address] [place], [place], [address], 07/10/2024 12:26:06 4 US, echocardiogram completed [facility] [address] , [place], [address], 07/10/2024 12:26:07 5 XR, chest, 2 view completed [facility] [place] (Central [facility]uling) [address] , [place], [address], 09/01/2024 12:56:55 Procedure Notes None recorded. Medical Equipment None Reported. Allergies Allergen ID Allergen Name Allergen Category Reaction Reaction Severity Criticality Documentation Date Start Date Code Code System Note Provider Name and Address Organization Details Recorded Time 422860 Rocephin medicatio n Not available Not available Not available 08/29/20172023 9449 RxNorm Not Available Not Available Not Available 499357 Substance with sulfonami de structure and antibacte rial mechanism of action (substanc e) medicatio n Not available Not available Not available 08/29/20172023 32486 8003 SNOMED Not Available Not Available Not Available 230886 levofloxa glenda medicatio n Not available Not available Not available 12/21/20192023 46403 RxNorm Not Available Not Available Not Available 295091 iodine medicatio n rash moderate Not available 12/21/2019 5933 RxNorm Not Available Not Available Not Available 381491 bee pollen environme nt,medica tion Not available Not available Not available 12/21/20192023 30024 7 RxNorm Not Available Not Available Not Available 892687 ceftriaxo ne medicatio n Not available Not available Not available 12/21/20192023 2193 RxNorm Not Available Not Available Not Available 876020 iodine medicatio n Not available Not available Not available 08/12/20232023 5933 RxNorm Not Available Not Available Not Available 24087 carisopro dol medicatio n Not available Not available Not available 08/03/20152023 2101 RxNorm Not Available Not Available Not Available 10181 honey bee venom environme nt Not available Not available Not available 08/03/20152023 41804 7 RxNorm Not Available Not Available Not Available 99835 fentanyl medicatio n Not available Not available Not available 08/03/20152023 4337 RxNorm Not Available Not Available Not Available 08392 ciproflox acin medicatio n Not available Not available Not available 08/03/20152023 2551 RxNorm Not Available Not Available Not Available 19055 sulfameth oxazole / trimethop rim medicatio n Not available Not available Not available 08/03/20152023 28871 RxNorm Not Available Not Available Not Available 85034 acetamino phen / oxycodone medicatio n Not available Not available Not available 08/03/20152023 88664 3 RxNorm Not Available Not Available Not Available Medications Name Sig Start Date Stop Date Status Note LastModified by Organization Details LastModified Time Singulair 10 mg tablet Take 1 tablet every day by oral route. 01/02 completed Not Available Not Available Not Available multivita min tablet 01/15 completed Not Available Not Available Not Available cyclobenz aprine 10 mg tablet TAKE 1 TABLET BY MOUTH 3 TIMES DAILY NEEDED (PAIN) FOR UP TO 14 DAYS. active Not Available Not Available No t Available amoxicill in 500 mg capsule TAKE 1 TABLET(S ) BY MOUTH EVERY 12 HOURS DIRECTED 08/17 completed Not Available Not Available Not Available methocarb jackson 500 mg tablet TAKE 1 TABLET BY MOUTH TWICE A DAY 11/25 completed Not Available Not Available Not Available hydrocodo ne 7.5 mg-ibupro fen 200 mg tablet 08/17 completed not taking Not Available Not Available Not Available promethaz ine-DM 6.25 mg-15 mg/5 mL oral syrup Take 10 mL 3 times a day by oral route as needed. 12/29 completed Not Available Not Available Not Available prednison e 10 mg tablet TAKE 6 TABLETS BY MOUTH ON DAY 1, THEN DECREASE BY 1 TABLET EACH DAY 06/06 completed Not Available Not Available Not Available gabapenti n 600 mg tablet TAKE 1 TABLET BY MOUTH THREE TIMES A DAY 05/09 completed changed to pregabal in Not Available Not Available Not Available doxycycli ne hyclate 100 mg capsule 06/16 completed Not Available Not Available Not Available atorvasta tin 20 mg tablet TAKE 1 TABLET BY MOUTH EVERY DAY 04/14 completed not taking Not Available Not Available Not Available clindamyc in HCl 300 mg capsule TAKE 2 CAPSULES BY MOUTH TWICE A DAY FOR 7 DAYS 02/03 completed Not Available Not Available Not Available albuterol sulfate 2.5 mg/3 mL (0.083 %) solution for nebulizat ion Inhale 3 mL 3 times a day by nebuliza tion route as needed for 30 days. 04/11 completed Not Available Not Available Not Available triamcino lone acetonide 0.5 % topical cream APPLY A THIN LAYER TO THE AFFECTED AREA(S) BY TOPICAL ROUTE 2 TIMES PER DAY 01/15 completed Not Available Not Available Not Available azithromy glenda 250 mg tablet TAKE 2 TABLETS (500 MG) BY ORAL ROUTE ONCE DAILY FOR 1 DAY THEN 1 TABLET (250 MG) BY ORAL ROUTE ONCE DAILY FOR 4 DAYS 08/17 completed Not Available Not Available Not Available aspirin 325 mg tablet TAKE 1 TABLET BY MOUTH EVERY DAY 04/11 completed Not Available Not Available Not Available ibuprofen 800 mg tablet 02/19 completed Not Available Not Available Not Available tizanidin e 4 mg tablet TAKE 1 TABLET BY MOUTH TWICE A DAY 09/06 completed Not Available Not Available Not Available fluconazo le 150 mg tablet 06/16 completed Not Available Not Available Not Available benzonata te 200 mg capsule Take 1 capsule 3 times a day by oral route. 10/01 completed Not Available Not Available Not Available levetirac etam 500 mg tablet TAKE 1 TABLET BY MOUTH TWICE A DAY active Not Available Not Available No t Available valacyclo vir 1 gram tablet Take 1 tablet 3 times a day by oral route. 11/[address] [facility] Not Available Not Available Not Available clarithro mycin 500 mg tablet 05/25 completed Not Available Not Available Not Available hydrocodo ne 5 mg-acetam inophen 325 mg tablet TAKE 1 TABLET BY MOUTH EVERY 8 HOURS NEEDED FOR MODERATE TO SEVERE PAIN 04/14 completed pt states she is not taking Not Available Not Available Not Available promethaz ine 6.25 mg/5 mL oral syrup Take 20 mL 3 times a day by oral route as needed for 7 days. 11/07 completed Not Available Not Available Not Available ondansetr on HCl 8 mg tablet 05/25 completed Not Available Not Available Not Available Compro 25 mg rectal supposito ry 08/23 completed Not Available Not Available Not Available meloxicam 15 mg tablet 15 mg by oral route. 12/24 completed Not Available Not Available Not Available sucralfat e 1 gram tablet 01/02 completed Not Available Not Available Not Available phenazopy ridine 200 mg tablet TAKE 1 TABLET 3 TIMES A DAY BY ORAL ROUTE FOR 2 DAYS. 05/22 completed Not Available Not Available Not Available cefepime 2 gram solution for injection 02/03 completed not taking Not Available Not Available Not Available sumatript an 25 mg tablet TAKE 1 TABLET BY MOUTH WHEN NEEDED, MAY REPEAT AFTER 2 HOURS -- NO MORE THAN TWICE WEEKLY 04/11 completed Not Available Not Available Not Available ondansetr on HCl 4 mg tablet TAKE 1 TABLET BY MOUTH EVERY 8 HOURS NEEDED FOR NAUSEA FIRST LINE 10/01 completed Not Available Not Available Not Available Medrol (Trevin) 4 mg tablets in a dose pack po as directed 10/01 completed Not Available Not Available Not Available prednison e 20 mg tablet TAKE 2 TABLETS BY MOUTH EVERY DAY FOR 7 DAYS 11/26 /2024 completed PRN Not Available Not Available Not Available sertralin e 100 mg tablet 04/11 completed Not Available Not Available Not Available prednison e 5 mg tablet TAKE 1 TABLET BY MOUTH EVERY DAY 09/06 completed Not Available Not Available Not Available Milk of Magnesia 400 mg/5 mL oral suspensio n 05/25 completed Not Available Not Available Not Available cyanocoba nancy (vit B-12) 1,000 mcg tablet TAKE 1 TABLET BY MOUTH EVERY DAY active Not Available Not Available No t Available hydroxyzi ne pamoate 50 mg capsule TAKE 1 CAPSULE BY MOUTH AT BEDTIME NEEDED active Not Available Not Available No t Available promethaz ine 6.25 mg-codein e 10 mg/5 mL syrup 06/16 completed Not Available Not Available Not Available Vitamin B-12 500 mcg tablet 01/02 completed Not Available Not Available Not Available nafcillin 2 gram solution for injection 02/13 completed Not Available Not Available Not Available metronida zole 500 mg tablet TAKE 1 TABLET BY MOUTH EVERY 8 HOURS FOR 24 DAYS 02/03 completed Not Available Not Available Not Available hydroxyzi ne HCl 50 mg tablet TAKE 1 TABLET BY MOUTH EVERY 8 HOURS NEEDED FOR ANXIETY 12/29 completed Not Available Not Available Not Available phentermi ne 37.5 mg tablet TAKE 1 TABLET BY MOUTH EVERY DAY IN THE MORNING 02/13 completed Not Available Not Available Not Available fexofenad ine 180 mg tablet TAKE 1 TABLET BY MOUTH EVERY DAY 03/05 completed Not Available Not Available Not Available prochlorp erazine maleate 10 mg tablet 02/03 completed Not taking Not Available Not Available Not Available ciproflox acin 500 mg tablet 05/25 completed Not Available Not Available Not Available hydrocodo ne 10 mg-acetam inophen 325 mg tablet 01/02 completed Not Available Not Available Not Available omeprazol e 40 mg capsule,d elayed release TAKE 1 CAPSULE BY MOUTH EVERY DAY active Not Available Not Available No t Available aspirin 81 mg tablet,de layed release TAKE 1 TABLET BY MOUTH EVERY DAY 02/03 completed Not taking Not Available Not Available Not Available doxycycli ne monohydra te 100 mg tablet PLEASE SEE ATTACHED FOR DETAILED DIRECTIO NS 06/30 completed not taking Not Available Not Available Not Available tramadol 50 mg tablet 50 mg by oral route. 08/29 completed Not Available Not Available Not Available vancomyci n 1,000 mg intraveno us injection 02/03 completed Not taking Not Available Not Available Not Available quetiapin e 100 mg tablet 11/09 completed Not Available Not Available Not Available amitripty line 50 mg tablet TAKE 1 TABLET BY MOUTH EVERYDAY AT BEDTIME active Not Available Not Available No t Available acetamino phen 500 mg tablet 04/11 completed Not Available Not Available Not Available triamcino lone acetonide 0.1 % topical cream APPLY A THIN LAYER TO THE AFFECTED AREA(S) BY TOPICAL ROUTE 2 TIMES PER DAY 01/15 completed Not Available Not Available Not Available ketorolac 30 mg/mL (1 mL) injection solution Inject 1 mL every 6 hours by intramus cular route. 04/18 completed Not Available Not Available Not Available amoxicill in 500 mg tablet TAKE 1 TABLET BY MOUTH TWICE A DAY FOR 7 DAYS 05/23 completed Not Available Not Available Not Available ondansetr on 8 mg disintegr ating tablet 11/09 completed Not Available Not Available Not Available ketorolac 10 mg tablet TAKE 1 TABLET (10 MG TOTAL) BY MOUTH EVERY 6 (SIX) HOURS NEEDED FOR PAIN 04/14 completed PRN Not Available Not Available Not Available pantopraz ole 20 mg tablet,de layed release 09/06 completed Not Available Not Available Not Available oxycodone -acetamin ophen 5 mg-325 mg tablet TAKE 1 TABLET BY MOUTH EVERY 6 HOURS NEEDED FOR PAIN 11/25 completed Not Available Not Available Not Available hydrocort isone 2.5 % topical cream with perineal applicato r APPLY DAILY. APPLY TO RECTUM DIRECTED . 10/01 completed PRN Not Available Not Available Not Available bupropion HCl 100 mg tablet TAKE 1 TABLET BY MOUTH TWICE A DAY active Not Available Not Available No t Available amoxicill in 875 mg tablet TAKE 1 TABLET BY MOUTH EVERY 12 HOURS 06/30 completed Not Available Not Available Not Available hydromorp karen 2 mg tablet TAKE 1 TABLET BY MOUTH EVERY 6 HOURS NEEDED FOR PAIN 02/03 completed Not taking Not Available Not Available Not Available famotidin e 20 mg tablet 01/15 completed Not Available Not Available Not Available calcium 500 mg (as calcium carbonate 1,250 mg) tablet 01/15 completed Not Available Not Available Not Available tamsulosi n 0.4 mg capsule TAKE 1 CAPSULE BY MOUTH EVERY DAY 05/22 completed Not Available Not Available Not Available trazodone 100 mg tablet Take 100 mg by oral route. 02/13 completed Not Available Not Available Not Available dicyclomi ne 20 mg tablet 03/08 completed Not Available Not Available Not Available carbamaze pine ER 200 mg tablet,ex tended release,1 2 hr neuro active Not Available Not Available Not Available benzonata te 100 mg capsule TAKE 1 CAPSULE (100 MG TOTAL) BY MOUTH EVERY 8 (EIGHT) HOURS 02/13 completed Not Available Not Available Not Available doxycycli ne monohydra te 100 mg capsule Take 1 capsule twice a day by oral route for 10 days. 12/29 completed Not Available Not Available Not Available Bismuth 262 mg chewable tablet 05/25 completed Not Available Not Available Not Available hydrocodo ne 7.5 mg-acetam inophen 325 mg tablet TAKE 1 TABLET BY MOUTH EVERY 6 HOURS NEEDED FOR PAIN 02/13 completed PRN Not Available Not Available Not Available cephalexi n 500 mg capsule 06/16 completed Not Available Not Available Not Available pantopraz ole 40 mg tablet,de layed release TAKE 1 TABLET BY MOUTH EVERY DAY active Not Available Not Available No t Available erythromy glenda 5 mg/gram (0.5 %) eye ointment 12/20 completed Not Available Not Available Not Available diphenhyd ramine 25 mg capsule active Not Available Not Available Not Available cyanocoba nancy (vit B-12) 1,000 mcg/mL injection solution ADMINIST ER 1 ML UNDER THE SKIN EVERY MONTH active Not Available Not Available No t Available nitrofura ntoin macrocrys maximilian 100 mg capsule TAKE 1 CAPSULE BY MOUTH TWICE A DAY FOR 7 DAYS 04/28 completed Not Available Not Available Not Available ranitidin e 150 mg tablet 01/15 completed Not Available Not Available Not Available dextroamp hetamine- amphetami ne 20 mg tablet TAKE 1 TABLET IN AM AND 1 TABLET IN PM DAILY. 04/28 completed Not Available Not Available Not Available lisinopri l 10 mg tablet TAKE 1 TABLET BY MOUTH EVERY DAY 06/30 completed Not Available Not Available Not Available prednison e 50 mg tablet TAKE 1 TABLET BY MOUTH EVERY DAY 06/30 completed Not Available Not Available Not Available lidocaine 5 % topical patch PLEASE SEE ATTACHED FOR DETAILED DIRECTIO NS 10/01 completed PRN Not Available Not Available Not Available promethaz ine 25 mg tablet TAKE 1 TABLET BY MOUTH EVERY 6 HOURS NEEDED FOR NAUSEA OR VOMITING . 08/12 completed Not Available Not Available Not Available ursodiol 300 mg capsule 01/02 completed Not Available Not Available Not Available codeine 10 mg-guaife nesin 100 mg/5 mL Syrup Take 5 mL by oral route. 02/13 completed Not Available Not Available Not Available BD Luer-Ave Syringe 3 mL 25 gauge x 1 FOR INJECTIN G B12 EVERY MONTH active Not Available Not Available No t Available hydrocodo ne-homatr opine 5 mg-1.5 mg/5 mL oral syrup 06/16 completed Not Available Not Available Not Available docusate sodium 100 mg capsule 01/15 completed Not Available Not Available Not Available gabapenti n 300 mg capsule active Not Available Not Available Not Available Adipex-P 37.5 mg capsule Take 1 capsule every day by oral route in the morning for 30 days. 01/17 completed Not Available Not Available Not Available omeprazol e 20 mg capsule,d elayed release 04/14 completed not taking Not Available Not Available Not Available codeine 10 mg-guaife nesin 100 mg/5 mL oral liquid 08/12 completed Not Available Not Available Not Available acetamino phen 300 mg-codein e 60 mg tablet 1 {tbl} by oral route. 12/20 completed pt states not taking Not Available Not Available Not Available walker SENT TO ANOTHER PROVIDER . THANK YOU. active Not Available Not Available No t Available alprazola m 2 mg tablet 2 mg by oral route. 12/20 completed Not Available Not Available Not Available ergocalci ferol (vitamin D2) 1,250 mcg (50,000 unit) capsule TAKE 1 CAPSULE BY MOUTH ONE TIME PER WEEK active Not Available Not Available No t Available lorazepam 1 mg tablet 05/25 completed Not Available Not Available Not Available sodium chloride 0.9 % topical spray Apply 0.9 %s by topical route. 02/13 completed Not Available Not Available Not Available Tylenol-C odeine #3 300 mg-30 mg tablet Take 1 tablet twice a day by oral route as needed. 01/15 completed Not Available Not Available Not Available ibuprofen 600 mg tablet 08/29 completed Not Available Not Available Not Available oxycodone -acetamin ophen 7.5 mg-325 mg tablet active Not Available Not Available Not Available levofloxa glenda 750 mg tablet TAKE 1 TABLET BY MOUTH DAILY FOR 14 DAYS 02/26 completed Not Available Not Available Not Available albuterol sulfate HFA 90 mcg/actua tion aerosol inhaler USE 2 PUFFS BY MOUTH EVERY 6 HOURS NEEDED FOR COUGH OR WHEEZING active Not Available Not Available No t Available ondansetr on 4 mg disintegr ating tablet DISSOLVE 1 TABLET ON THE TONGUE EVERY 6 HOURS NEEDED FOR NAUSEA AND VOMITING active Not Available Not Available No t Available cefdinir 300 mg capsule 08/12 completed Not Available Not Available Not Available fluticaso ne propionat e 50 mcg/actua tion nasal spray,sd pension SPRAY 1 SPRAY BY INTRANAS AL ROUTE EVERY DAY 08/10 completed PRN Not Available Not Available Not Available sertralin e 50 mg tablet TAKE 1 TABLET BY MOUTH EVERY DAY active Not Available Not Available No t Available doxycycli ne hyclate 100 mg tablet TAKE 1 TABLET BY MOUTH TWICE DAILY FOR 14 DAYS 02/26 completed Not Available Not Available Not Available dicyclomi ne 10 mg capsule TAKE 1 CAPSULE BY MOUTH 4 TIMES DAILY NEEDED. 03/05 completed Not Available Not Available Not Available naproxen 500 mg tablet TAKE 1 TABLET BY MOUTH 2 TIMES DAILY NEEDED FOR MILD OR MORE SEVERE PAIN. 04/11 completed Not Available Not Available Not Available diazepam 5 mg tablet PLEASE SEE ATTACHED FOR DETAILED DIRECTIO NS 11/25 completed Not Available Not Available Not Available metoclopr amide 10 mg tablet TAKE 1 TABLET BY MOUTH THREE TIMES A DAY NEEDED FOR NAUSEA 04/14 completed not taking Not Available Not Available Not Available amoxicill in 875 mg-potass ium clavulana te 125 mg tablet TAKE 1 TABLET BY MOUTH TWICE A DAY FOR 10 DAYS 06/30 completed Not Available Not Available Not Available nabumeton e 500 mg tablet TAKE 1 TABLET BY MOUTH TWICE A DAY NEEDED 06/24 completed Not Available Not Available Not Available amoxicill in 500 mg-potass ium clavulana te 125 mg tablet 08/12 completed Not Available Not Available Not Available oxycodone 5 mg tablet TAKE 1 TABLET BY MOUTH TWICE DAILY NEEDED FOR MODERATE TO MORE SEVERE PAIN FOR UP TO 5 DAYS active Not Available Not Available No t Available hydroxyzi ne pamoate 25 mg capsule TAKE 1 CAPSULE BY MOUTH THREE TIMES A DAY NEEDED 03/05 completed Not Available Not Available Not Available docusate potassium 100 mg capsule Take by oral route. 02/13 completed Not Available Not Available Not Available Afrin (oxymetaz oline) 0.05 % nasal spray [place] 2 sprays twice a day by intranas al route. 08/10 completed Not Available Not Available Not Available Bismuth 262 mg tablet 05/25 completed Not Available Not Available Not Available azithromy glenda 500 mg tablet TAKE 1 TABLET BY MOUTH DAILY FOR 5 DAYS 11/25 completed Not Available Not Available Not Available divalproe x ER 250 mg tablet,ex tended release 24 hr 05/22 completed Not Available Not Available Not Available cyclobenz aprine 5 mg tablet 08/23 completed Not Available Not Available Not Available rosuvasta tin 10 mg tablet TAKE 1 TABLET BY MOUTH EVERY DAY active Not Available Not Available No t Available metoprolo l tartrate 25 mg tablet TAKE 1 TABLET BY MOUTH ONCE EVERY 12 HOURS 05/25 completed Not Available Not Available Not Available albuterol sulfate concentra te 2.5 mg/0.5 mL solution for nebulizat ion 05/22 completed Not Available Not Available Not Available nitrofura ntoin monohydra te/macroc rystals 100 mg capsule PLEASE SEE ATTACHED FOR DETAILED DIRECTIO NS 03/19 completed Not Available Not Available Not Available duloxetin e 20 mg capsule,d elayed release TAKE 1 CAPSULE BY MOUTH TWICE A DAY 02/26 completed pt states she is not taking Not Available Not Available Not Available duloxetin e 30 mg capsule,d elayed release TAKE 1 CAPSULE BY MOUTH DAILY. DO NOT CRUSH OR CHEW 10/01 completed Not Available Not Available Not Available duloxetin e 60 mg capsule,d elayed release TAKE 1 CAPSULE BY MOUTH DAILY. DO NOT CRUSH OR CHEW. START AFTER FINISHIN G 30 MG 10/01 completed Not Available Not Available Not Available carbamaze pine ER 100 mg capsule,e xtended release [id number] r TAKE ONE CAPSULE TWICE A DAY FOR ONE WEEK, THEN TAKE TWO CAPSULES TWICE A DAY. active Not Available Not Available No t Available pregabali n 150 mg capsule TAKE 1 CAPSULE BY MOUTH TWICE A DAY 06/06 completed Not Available Not Available Not Available levetirac etam 1,000 mg tablet TAKE 1 TABLET BY MOUTH EVERY 12 HOURS 11/25 completed Not Available Not Available Not Available levetirac etam 500 mg/5 mL intraveno us solution 02/13 completed Not Available Not Available Not Available activated charcoal 200 mg capsule take 1-2 capsules after every loose stool 02/19 completed Not Available Not Available Not Available bismuth subcit K 140 mg-metron idazole 125 mg-tetrac ycline 125 mg cap 06/30 completed not taking Not Available Not Available Not Available Pulmicort Flexhaler 180 mcg/actua tion breath activated Inhale 1 puff twice a day by inhalati on route. 08/23 completed Not Available Not Available Not Available FeroSul 325 mg (65 mg iron) tablet TAKE 1 TABLET BY MOUTH EVERY DAY active Not Available Not Available No t Available Humalog KwikPen (U-100) Insulin 100 unit/mL subcutane ous 02/13 completed Not Available Not Available Not Available oxycodone 10 mg tablet TAKE 1 TABLET BY MOUTH EVERY 6 HOURS NEEDED FOR PAIN 02/03 completed Not taking Not Available Not Available Not Available lacosamid e 100 mg tablet TAKE 1/2 TABLET BY MOUTH TWICE DAILY FOR 1 WEEK, THEN TAKE 1 TABLET BY MOUTH TWICE DAILY 06/24 completed Not Available Not Available Not Available naproxen sodium 220 mg capsule Take 2 capsules twice a day by oral route. active Not Available Not Available No t Available Nucynta ER 100 mg tablet,ex tended release TAKE 1 TABLET BY MOUTH EVERY 12 HOURS 05/09 completed had 9 seizures since starting 05/02/23 Not Available Not Available Not Available Chantix Starting Month Box 0.5 mg (11)-1 mg (42) tablets in dose pack 11/07 completed Not Available Not Available Not Available Eclipse Syringe 3 mL 25 gauge x 1 active Not Available Not Available Not Available lidocaine 5 % topical ointment APPLY TOPICALL Y 2 TIMES DAILY NEEDED FOR PAIN OR IRRITATI ON 04/11 completed Not Available Not Available Not Available Ultra CoQ10 active Not Available Not Available Not Available Trulicity 0.75 mg/0.5 mL subcutane ous pen injector INJECT 0.75 MG UNDER THE SKIN ONCE A WEEK 07/11 completed Not Available Not Available Not Available baclofen 5 mg tablet TAKE 1 TABLET 3 TIMES A DAY BY ORAL ROUTE NEEDED. 04/11 completed Not Available Not Available Not Available Nayzilam 5 mg/spray (0.1 mL) nasal spray neuro 10/01 completed Not Available Not Available Not Available Probitoic Digestive Support (6 strain) 10 billion cell-100 mg capsule Take by oral route. 04/11 completed Not Available Not Available Not Available Vitals Date Recorded Body height Oxygen saturation Oxygen saturation in Arterial blood by Pulse oximetry Body mass index (BMI) Body weight Heart rate Respiratory rate Body temperature Systolic blood pressure Diastolic blood pressure Provider Name and Address Organization Details Last Updated DateTime 4 190.5 cm 97 % 97 % 33.4 kg/m2 299096. 96 g 88 /min 16 /min 97.5 [degF] 119 mm[Hg] 84 mm[Hg] Tere Fischer MA [facility] 4 10:16:13 Date Recorded Body height Body mass index (BMI) Body weight Heart rate Respiratory rate Body temperature Oxygen saturation Oxygen saturation in Arterial blood by Pulse oximetry Systolic blood pressure Diastolic blood pressure Provider Name and Address Organization Details Last Updated DateTime 4 190.5 cm 32.7 kg/m2 282883. 84 g 52 /min 14 /min 97.2 [degF] 96 % 96 % 117 mm[Hg] 84 mm[Hg] Tere Fischer MA [facility] 4 14:18:09 Date Recorded Body height Body mass index (BMI) Body weight Heart rate Respiratory rate Body temperature Oxygen saturation Oxygen saturation in Arterial blood by Pulse oximetry Systolic blood pressure Diastolic blood pressure Provider Name and Address Organization Details Last Updated DateTime 5 190.5 cm 33.1 kg/m2 079815. 26 g 79 /min 14 /min 97.3 [degF] 99 % 99 % 105 mm[Hg] 74 mm[Hg] Tere Fischer MA [facility] 5 10:32:17 Date Recorded Body height Body mass index (BMI) Body weight Body temperature Oxygen saturation Oxygen saturation in Arterial blood by Pulse oximetry Heart rate Systolic blood pressure Diastolic blood pressure Provider Name and Address Organization Details Last Updated DateTime 5 190.5 cm 31.2 kg/m2 349687. 09 g 97.8 [degF] 96 % 96 % 81 /min 120 mm[Hg] 79 mm[Hg] Jayna Dean MA [facility] 5 11:06:12 Social History Question Answer Notes LastModified by Organizat ion Details LastModified Time Tobacco Smoking Status Current Every Day Smoker Dee Dee Medina RN [facility], [facility] 12/14/2015 15:29:07 Do You Have An Advance Directive? No Information not available 04/28/2021 What Is Your Level Of Alcohol Consumption? None Information not available 04/28/2021 Are You Blind Or Do You Have Difficulty Seeing? Yes Glasses [email or web address] Information not available 04/14/2024 What Is Your Level Of Caffeine Consumption? Heavy 2 Or More Pots Of Coffee A Day Information not available 06/30/2024 In The 14 Days Before Symptom Onset, Have You Had Close Contact With A Laboratory-confir med COVID-19 While That Case Was Ill? No Information not available 04/28/2021 In The 14 Days Before Symptom Onset, Have You Had Close Contact With A Person Who Is Under Investigation For COVID-19 While That Person Was Ill? No Information not available 04/28/2021 Have You Been To An Area Known To Be High Risk For COVID-19? No Information not available 04/28/2021 Are You Currently Employed? No Information not available 04/28/2021 Are You Deaf Or Do You Have Serious Difficulty Hearing? No Some Information not available 04/14/2024 What Type Of Diet Are You Following? DIABETIC Information not available 04/28/2021 Do You Or Have You Ever Used E-cigarettes Or Vape? Never Used Electronic Cigarettes Information not available 04/14/2024 Are There Any Guns Present In Your Home? No Information not available 04/28/2021 What Was The Date Of Your Most Recent Tobacco Screening? 10/01/2024 Information not available 10/01/2024 How Many Children Do You Have? 4 2 Are Living, 2 Have Passed. Pt. Has 4 Step Children. Information not available 04/28/2021 What Is Your Current Pack Years? 30ormorepacky ears Information not available 04/28/2021 What Is Your Relationship Status? Information not available 04/28/2021 Do You Use Your Seat Belt Or Car Seat Routinely? Yes Information not available 04/28/2021 Are You Sexually Active? No Information not available 04/28/2021 Do You Have Smoke And Carbon Monoxide Detectors In Your Home? Yes Information not available 04/28/2021 At What Age Did You Start Smoking Tobacco? 10 Information not available 04/28/2021 Are You Passively Exposed To Smoke? Yes Information no t available 04/28/2021 Do You Or Have You Ever Used Smokeless Tobacco? Never Used Smokeless Tobacco Information not available 12/21/2019 How Much Tobacco Do You Smoke? 0.5 PPD [email or web address] Information not available 02/04/2024 Do You Feel Stressed (tense, Restless, Nervous, Or Anxious, Or Unable To Sleep At Night)? [id number] Information not available 04/28/2021 Do You Use Any Illicit Or Recreational Drugs? No Information not available 04/28/2021 Do You Use Sunscreen Routinely? No Information not available 04/28/2021 Has Tobacco Cessation Counseling Been Provided? Yes Information not available 04/28/2021 On What Date Was Tobacco Cessation Counseling Provided? 10/01/2024 Information not available 10/01/2024 How Many Years Have You Smoked Tobacco? 30 Information not available 04/28/2021 Do You Or Have You Ever Used Any Other Forms Of Tobacco Or Nicotine? Yes Information not available 04/28/2021 How Many Years Have You Used E-cigarettes Or Vape? 1 Information not available 04/28/2021 Sex: Female Functional Status Question Answer Note LastModified by Organizat ion Details LastModified Time Are you able to care for yourself? Yes with assistance Information not available 08/17/2024 What is your exercise level? None Information not available 04/28/2021 Mental Status None recorded. Family History Relationship Description Onset Age of this Age Resolved Age Notes LastModified by Organization Details LastModified Time Paternal Aunt Jul [email or web address] Not available 08/29/2017 15:02:17 Daughter 22 days old 2 [email or web address] Not available 01/14/2020 14:56:43 Sister Sep 2022 [email or web address] Not available 03/08/2023 10:38:04 Notes:step father 08/07, 04/28/21, 05/22/21, 02/22/23, 03/08/23,03/19/23 Medical History Condition Response Coronary Artery Disease N Other N High Blood Pressure N Atrial Fibrillation N Thyroid Problems Y Kidney or Bladder Problems N GI Problems Y Depression Y COPD N Blood Clots Y Skin Problems N Anemia N Heart Attack ([place]) N Anxiety Disorder Y Diabetes Y Muscle,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 and L3 without retropulsi on. Moderate left L5-S1 neural foraminal narrowing secondary to disc disease. CT on 04/08- to re evaluate symptoms of back pain and numbness and tingling in LE1. Mild superior end plate compressio n fractures of L2 and L3.2. Multilevel spondyloti c degenerati ve changes.3. Mild spinal stenosis at L4-L5. 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 Spine MRI: cervical and thoracic unremarkab le, lumbar: Recent superior end plate compressio n fractures of L2 and L3 without retropulsi on. Moderate left L5-S1 neural foraminal narrowing secondary to disc disease. Still need to rule out MS with lumbar puncture - needs to be evaluated by neurosurge ry to ensure safe to do so first. If neurosurge ry gives the okay for LP, will message Dr. Daley if it is appropriat e for me to order LP. ALS less likely due to lack of upper and motor neuron symptoms and EMG results. Will re-order left upper and left lower EMG - facility keeps deleting multiple orders thinking it is a duplicate order. 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.9 Likely neurogenic based on decreased sensation/ urge to urinate, likely related to progressin g neuropathi c diseaseDoe s have urology referral already - see neurosurge ry first if they will address issue - if not, can go ahead and make appointmen t for urologyAdu lt diapers ordered Liver enzy mes level above reference range 437111666 R74.01 A1AT and ceruloplas min WNL - reviewed with patient [id number] GENIA PAUL MD Gibbs [address] [facility] [address] [place] [address] 05/09/2023 16:10:57 06/07/2023 13:53:48 Elevated blood-pressure reading without diagnosis of hypertension 541533853 R03.0 Repeat BP 146/90. Patient with no history of HTN. Possibly secondary to pain, anxiety, NSAID use.RTC in 1 month. Traumatic ulceration of tongue 67567970 K14.0 Secondary to seizure. Healing well. No signs of infection. Peripheral motor neuropathy 80217878 G62.81 04/01/2023 MRI of the brain without evidence of temporal sclerosis. Spine MRI: cervical and thoracic unremarkab le, lumbar: Recent superior end plate compressio n fractures of L2 and L3 without retropulsi on. Moderate left L5-S1 neural foraminal narrowing secondary to disc disease. Still need to rule out MS with lumbar puncture - will follow up with neurosurge ry if okay to proceed although at this point looks like will defer to neurlogy as has upcoming appointmen t. ALS less likely due to lack of upper and motor neuron symptoms and EMG results. RLE EMG showed decreased compound muscle potentials , affecting right peroneal and tibial nerves consistent with motor neuropathy and L4/S1 radiculopa thy. 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 Strength is back to normal today - had been 4/5 for the last times I saw her. Likely was in acute flare at those times. Compressio n fracture of lumbar spine 904036533 M48.56XA MRI lumbar 04/02:Recen t superior end plate compressio n fractures of L2 and L3 without retropulsi on. Moderate left L5-S1 neural foraminal narrowing secondary to disc disease. Patient wishes referral to different pain management provider. Was referred to PM by neurosurge ry but has not heard from them. [id number] MD Harry Patiño 14 IM [address] [facility] [address] [address] 05/23/2023 14:49:09 06/07/2023 14:05:50 Seizure disorder 013342387 G40.909 Patient agreeable to restarting keppra 1mg BID. Refuses to start lacosamide 100mg. Understand s risks of not taking seizure medication s. Seizure precaution s were discussed, which include the following. No driving until the patient has been seizure-fr ee for six consecutiv e months. Avoid tub baths. Take showers only. Avoid swimming in pools and hot tubs without supervisio n. Appointmen t with Dr. 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 Will confirm with radiologis t that location of lumbar puncture will not affect current lumbar fracture. Gastroesop hageal reflux disease 498026468 K21.9 To be taken with oxycodone 5mg due to GI issues Compressio n fracture of lumbar spine 229579275 M48.56XD MRI lumbar 04/02:Recen t superior end plate compressio n fractures of L2 and L3 without retropulsi on. Moderate left L5-S1 neural foraminal narrowing secondary to disc disease. Has pain management appointmen t on 05/31 - oxycodone 5mg til then [id number] MD Harry HURT [address] [place] [address] 06/06/2023 10:57:29 06/14/2023 09:40:18 Closed fracture lumbar vertebra 218928512 S32.009A Avoid narcoticsN abumetone 500mg BID prnDC ibuprofen and naproxen (had told patient not to take both previously )Increased pregabalin to 200mg BIDFollow up with [facility] Follow up with [facility] neuro[facility]ge [facility] in 1 month [id number] MD Harry Panchal [address] [place] [address] 06/24/2023 10:39:17 06/28/2023 12:00:32 Seizure disorder 762011251 G40.909 Strongly urged patient to take her seizure medication s as prescribed by Dr. Daley - carbamazep ine 100mg ER - patient declinedAd vised against operating any motor vehicle until 6 months seizure free Compressio n fracture of lumbar spine 561630551 M48.56XD MRI lumbar 04/02:Recen t superior end plate compressio n fractures of L2 and L3 without retropulsi on. Moderate left L5-S1 neural foraminal narrowing secondary to disc disease. 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 Will get second opinion from [facility] NeurologyD id have brain MRI which was consistent with possible demyelinat ion but likely not MS in nature; LP WNLNot in acute episode at this time [id number] MD Harry Patiño [address] [place] [address] 07/11/2023 09:40:56 07/18/2023 10:47:00 Obesity 769162540 E66.9 Schmorl's nodes of lumbar region 40434610 M51.46 New finding on recent X-ray of L-spineGiv en patient's radiculopa thy history, tenderness on L-spine (granted does have fx there), will order MRIPatient given MRI order as well as # of [facility] neurologis t for second opinion on polyradicu lopathy, seizuresFo llow up with meghann cisneros neurosurge on Hematochezia 739581603 K 92.1 Recent colonoscop y which was normal earlier this year, normal BMsPossibl e anal fissure or new hemorrhoid sinceSince occurred since fall, will order some coagulatio n studiesWil l check on current iron/Hb levels - takes iron every other day [id number] MD Harry Moya [address] [facility] [address] [place], [place] [address] [address] 08/12/2023 08:49:08 08/13/2023 10:40:38 Chest pain 16795865 R07.9 Most likely MSK in origin as is reproducib le and related to exertionEC G in hospital with NSR and no acute ECG changes Compressio n fracture of lumbar spine 006568376 M48.56XD 08/30 appointmen t with neurosurge ry at [facility] - will hopefully schedule surgery at that visitUnabl e to see pain management due to insurance issuesDulo xetine prescribed as below for chronic low back pain Acute sinusitis 53824154 J01.90 Patient with sinus tenderness on exam and congestion To use Flonase daily along with Afrin - can d/c Afrin after 3 days or continue use; as long as it is with Flonase, rebound congestion should not occur Chronic low back pain 27 3834892 M54.50 Worsened since L-spine fx 07/04/23Pa tient agreeable to starting duloxetine - will help with pain and depression Seizure 18943365 R56.9 Patient strongly encouraged to go back on her seizure medication s - lacosamide and KeppraPati ent told to contact V due to her driving restrictio ns - no driving for 6 months after seizurePat ient referred to [facility] neurology - second opinionWas seeing Dr. Babb previously at [facility] [id number] MD [facility] [address] [place] [address] 11/26/2023 09:38:38 12/03/2023 20:45:27 Seizure disorder 068395512 G40.909 with h/o head injury several yrs ago - pt is on carbamazep ineKeppra discontinu ed by neuro Mixed anxi ety and depressive disorder 995997806 F41.8 - pt sees psychiatri st at [place] and sees therapist biwkly and also has casework manager Chronic back pain 842833 002 G89.29 with h/o compressio n fx - pt had sx at L3-4 on 11/26 - sees sales support specialist -pt is on cyclobenza erick Chronic ob structive pulmonary disease 97689100 J44.9 with R/upper lobectomy for lung mass which was suspicious per pt Essential hypertension 28930923 I10 pt is on lisinopril Hyperlipidemia 66230868 E78.5 pt is on atorvastat in History of diabetes mellitus type 2 844683981 Z86.39 in remission after wt loss sx ( gastric bypass )- pt is on diet control [id number] MD [facility] [address] [place] [address] 02/04/2024 09:19:45 02/10/2024 16:24:03 Chronic back pain 432323011 G89.29 with h/o compressio n fx - pt had sx at L3-4 on 11/26 and complicate d with abscess -s/p I and D-pt is still on oral antibiotic - sees ID and sales support specialist - pt also has some neurologic al deficit on L/ lower leg and has some incontinen ce - specialist s are aware of that per pt -pt already had NCS per pt-pt is on cyclobenza erick Mixed anxi ety and depressive disorder 315420535 F41.8 - pt sees psychiatri st at [place] and sees therapist biwkly and also has casework manager Seizure disorder 3137948 02 G40.909 with h/o head injury several yrs ago - pt is on carbamazep ineKeppra discontinu ed by neuro Essential hypertension 60215885 I10 pt is on lisinopril Hyperlipidemia 13194492 E78.5 pt is on atorvastat in History of diabetes mellitus type 2 590439536 Z86.39 in remission after wt loss sx ( gastric bypass )- pt is on diet control [id number] MD Jyothi Haro (Adult Med) [address] [place] [address] 02/27/2024 13:26:32 03/02/2024 10:38:02 Seizure disorder 938401499 G40.909 with h/o head injury several yrs ago - pt is on carbamazep ineKeppra discontinu ed by neuro-pt needs to find new neuro Chronic back pain 148993 002 G89.29 with h/o compressio n fx - pt had sx at L3-4 on 11/26 and complicate d with abscess -s/p I and D-pt is still on oral antibiotic - sees ID and sales support specialist - pt also has some neurologic al deficit on L/ lower leg and has some incontinen ce - specialist s are aware of that per pt -pt already had NCS per pt-pt is on cyclobenza erick At [facility] ed risk for falls 708835141 Z91.81 due to back issues -pt to use walker at home as well-agree d to see PT Pain in right hand [id number] 67593 M79.641 with flexed little finger and swelling-c heck xray againconsi lizzette hand surgeon referral if needed [id number] MD Jyothi Haro (Adult Med) [address] [place] [address] 04/14/2024 09:17:48 04/17/2024 11:01:12 Chronic back pain 485406016 G89.29 with h/o compressio n fx - pt had sx at L3-4 on 11/26 and complicate d with abscess -s/p I and D-pt is still on oral antibiotic - sees ID and sales support specialist - pt also has some neurologic al deficit on L/ lower leg and has some incontinen ce - specialist s are aware of that per pt -pt already had NCS per pt-pt is on cyclobenza erick Seizure disorder 3981518 02 G40.909 with h/o head injury several yrs ago - pt is on carbamazep ineKeppra discontinu ed by neuro-pt needs to find new neuro Mixed anxi ety and depressive disorder 531965657 F41.8 - pt sees psychiatri st at [place] and sees therapist shanon and also has case workerpt is not on med Essential hypertension 37091961 I10 pt is on lisinopril Hyperlipidemia 61773047 E78.5 pt is noncomplia nt with atorvastat in due to GI upset - pt to try rosuvastat in 10mg History of diabetes mellitus type 2 806368598 Z86.39 in remission after wt loss sx ( gastric bypass )- pt is on diet control [id number] MD Jyothi Haro (Adult Med) [address] [place] [address] 06/30/2024 13:48:55 07/06/2024 09:07:28 Pancreatic enzyme level above reference range 170176176 R85.0 with recent normal lipase levelCT did not show any pancreatit is Chronic back pain 982768 002 G89.29 with h/o compressio n fx - pt had sx at L3-4 on 11/26 and complicate d with abscess -s/p I and D-pt is still on oral antibiotic - sees ID and sales support specialist - pt also has some neurologic al deficit on L/ lower leg and has some incontinen ce - specialist s are aware of that per pt -pt already had NCS per pt-pt is on cyclobenza erick Mixed anxi ety and depressive disorder 769572365 F41.8 - pt sees psychiatri st at [place] and sees therapist shanon and also has case workerpt is not on med Essential hypertension 83256571 I10 bp is off of lisinopril -observe without med Intermitte nt palpitations 382947380 R00.2 [id number] MD Jyothi Haro (Adult Med) [address] [place] [address] 08/10/2024 09:15:41 08/11/2024 09:26:15 Anemia 055100242 D64.9 -check labspt to continue vit B12 monthly Hyperlipidemia 20897359 E78.5 pt was noncomplia nt with atorvastat in due to GI upset - pt is tolerating rosuvastat in Chronic back pain 161624 002 G89.29 with h/o compressio n fx - pt had sx at L3-4 on 11/26 and complicate d with abscess -s/p I and D-pt completed antibiotic - sees sales support specialist - pt also has some neurologic al deficit on L/ lower leg and has some incontinen ce - specialist s are aware of that per pt -pt already had NCS per pt Mixed anxi ety and depressive disorder 915035153 F41.8 - pt sees psychiatri st at [place] and sees therapist biwkly and also has case workerpt is not on med - pt said psychiatri st does not want to start meds until her medical stuff settled Acute bronchitis 6891445 2 J20.9 vs pneumonia- pt to go to ER if problem worsen Disorder o f vitamin B12 992564115 E53.8 - pt to continue monthly b12 [id number] MD Jyothi Haro (Adult Med) [address] [place] [address] 08/17/2024 09:48:28 08/21/2024 12:24:10 Acute bronchitis 11622348 J20.9 vs pneumonia- pt to do cxr in 2-3 wks- pt to quit smoking /continue inhalers Mixed anxi ety and depressive disorder 149102001 F41.8 - pt sees psychiatri st at [place] and sees therapist biwkly and also has case workerpt is not on med - pt said psychiatri st does not want to start meds until her medical stuff settled Chronic back pain 851536 002 G89.29 with h/o compressio n fx - pt had sx at L3-4 on 11/26 and complicate d with abscess -s/p I and D-pt completed antibiotic - sees sales support specialist /pain mx in [place] -wants to see different pain mx- pt also has some neurologic al deficit on L/ lower leg and has some incontinen ce - specialist s are aware of that per pt -pt already had NCS per ptpt did not tolerate gabapentin [id number] MD Jyothi BROWNING ([facility]) [address] [place] [address] 10/01/2024 10:46:15 10/05/2024 12:38:03 Seizure disorder 589140830 G40.909 - Chronic uncontroll ed on carbamazep ine and Briviact- Management per Neurology; patient has reached out to office regarding recent seizures Hyperlipidemia 84335007 E78.5 - F/u repeat lipid panel Obesity 084347716 E66.9 - History of stomach bypass- Provided handout on healthy lifestyle Positive s creening for depression on PHQ-9 (Patient Health Questionnaire 9) 4877885771 17416 Z13.31 - Discussed PHQ-9 results with patient, including positive answer to question #9. Patient clarifies this is a chronic passive SI without a plan.- On sertraline 50 mg daily Type II di abetes mellitus in remission 845014542 E11.9 - Diabetes in remission, not on medication - A1c 5.8% ( 4) Screening for malignant neoplasm of breast 981849122 Z12.31 - Due for screening mammogram; ordered today Iron defic iency anemia 37806671 D50.9 - F/u CBC, iron studies, ferritin- [facility] 721230089 Z00.01 - Reviewed risks for cardiovasc ular disease, infection, and cancer; ordered screening tests as appropriat e- Recommende d annual flu vaccine and updated COVID vaccine- Additional vaccines recommende d by age/risk factors: PCV20 Health Concerns Section Related Observation LastModified by Organization Detai ls LastModified Time None Recorded Concern Status LastModified by Organization Details LastModified Time None Recorded Advance Directives Directive N: Payers Encounter Date Sequence Insurance Name Policy Number Policy Varela Covered Member ID Varela Member ID Guarantor Name 04/14/2024 1 [facility] (MEDICAID HMO) [id number] Tatiana Mcpherson [id number] Tatiana Mcpherson 06/30/2024 1 [facility] (MEDICAID HMO) [id number] Tatiana Mcpherson [id number] Tatiana Mcpherson 08/10/2024 1 [facility] (MEDICAID HMO) [id number] 0003 Tatiana Mcpherson [id number] Tatiana Mcpherson 08/17/2024 1 [facility] (MEDICAID HMO) [id number] 0003 Tatiana Mcpherson [id number] Tatiana Mcpherson 10/01/2024 1 [facility] (MEDICAID HMO) [id number] 0003 Tatiana Lopes [place] [id number] Tatiana Mcpherson Notes Date Note Type Note Provider Name and Address Organization Details Recorded Time 4 text/html Anxiety/DepressionReporte d bypatient.Quality:mood worse;increased anxiety Severity:denies suicidal ideations Context:major life stressors(PTSD with first marriage);family problems(kids with multiple health isuues -congenital); lives alone /on medical leave -working at [employer] Associated Symptoms:denies homicidal ideationsNotes:pt sees psychiatrist at [place] /also sees therapist shanon - pt said she is going to call her psychiatrist to get on meds per ptBack PainReported bypatient.Location:pain radiating to the legs Severity:moderate (5-7) Duration:chronic Context:prior back problems; had evaluations by back specialist (pt had sx which got complicated with abscess) Aggravating Factors:movement/position ingNotes:pt sees sales support specialist and IDHypertension F/UReported bypatient.Associated Symptoms:no dizziness; no chest pain; no shortness of breath; no palpitations; no edema Lifestyle:regular exercise; limiting/avoiding salt Medications:taking medications as directed; no side effects from medication pt with seizure disorder/chronic back pain /anxiety /depression- pt sees neuro for seizures , taking carbamazepine / keppra was discontinued by her neuro per pt -needs to find new neuro pt was recently admitted with post op abscess following back sx in 11/2023 -had I/D and was on IV antibiotic which has been changed to oral antibiotic now -seeing ID as well Sue Snow MD Attn: Accounting,[address] [facility], [place], [address], [facility] 04/14/2024 15:38:06 4 text/html Back PainReported bypatient.Location:pain radiating to the legs Severity:moderate (5-7) Duration:chronic Context:prior back problems; had evaluations by back specialist (pt had sx which got complicated with abscess) Aggravating Factors:movement/position ingNotes:pt sees sales support specialist and IDHypertension F/UReported bypatient.Associated Symptoms:no dizziness; no chest pain; no shortness of breath; no palpitations; no edema Lifestyle:regular exercise; limiting/avoiding salt Medications:taking medications as directed; no side effects from medication pt is here for hospital f/upt went to ER few times including for bladder spasm /also found to have elevated lipase with normal appearing pancreas on CT with recent normal lipase pt with seizure disorder/chronic back pain /anxiety /depression- pt sees neuro for seizures , taking carbamazepine / keppra was discontinued by her neuro per pt -needs to find new neuro pt was recently admitted with post op abscess following back sx in 11/2023 -had I/D and was on IV antibiotic which has been changed to oral antibiotic now -seeing ID as well Sue Snow MD Attn: Accounting,[address] [facility], [place], [address], [facility] 07/03/2024 15:31:24 5 text/html Anxiety/DepressionReporte d bypatient.Quality:mood worse;increased anxiety Severity:denies suicidal ideations Context:major life stressors(PTSD with first marriage);family problems(kids with multiple health isuues -congenital); lives alone /on medical leave -working at [employer] Associated Symptoms:denies homicidal ideationsNotes:pt sees psychiatrist at [place] /also sees therapist shanon -Back PainReported bypatient.Location:pain radiating to the legs Severity:moderate (5-7) Duration:chronic Context:prior back problems; had evaluations by back specialist (pt had sx which got complicated with abscess) Aggravating Factors:movement/position ingNotes:pt sees spine specialistUpper Respiratory SymptomsReported bypatient.Location:chest Quality:congested Severity:moderate Duration:symptoms lasting over 2 weeks Context:pt had recent Associated Symptoms:no shortness of breath; no wheezing;chest pain(?pleuritic chest pain);blood-streaked sputumNotes:pt was in ER yesterday and had cxr which showed some changes -pt is only on inhaler and not on antibiotic pt is here for hospital f/u for cough and covid - pt still continues to have persistent cough/ also has chest pain with deep breathingpt went to ER few times , last one was yesterday for cough and chest pain- pt was given inhaler per ptpt with seizure disorder/chronic back pain /anxiety /depression- pt sees neuro for seizures , taking carbamazepine / keppra was discontinued by her neuro per pt -has f/u apt in few days pt was also admitted with post op abscess following back sx in 11/2023 -had I/D and was rxed with IV antibiotic-seen by ID as well Sue Snow MD Attn: Accounting,[address] [facility], [place], [address], [facility] 08/10/2024 15:35:46 5 text/html Anxiety/DepressionReporte d bypatient.Quality:mood worse;increased anxiety Severity:denies suicidal ideations Context:major life stressors(PTSD with first marriage/ financial);family problems(kids with multiple health issues -congenital); lives alone /on medical leave -working at [employer] Associated Symptoms:denies homicidal ideationsNotes:pt sees psychiatrist at [place] /also sees therapist shanon -Back PainReported bypatient.Location:pain radiating to the legs Severity:moderate (5-7) Duration:chronic Context:prior back problems; had evaluations by back specialist (pt had sx which got complicated with abscess) Aggravating Factors:movement/position ingNotes:pt sees spine specialistUpper Respiratory SymptomsReported bypatient.Location:chest Quality:congested Severity:moderate Duration:symptoms lasting over 2 weeks Context:pt had recent Associated Symptoms:no shortness of breath; no wheezing;blood-streaked sputum(better now)Notes:pt was in ER few days ago and had cxr which showed some changes -pt is on inhaler and completed antibiotic pt is here for hospital f/u for cough and covid - pt still continues to have persistent cough/ also has chest pain with deep breathingpt went to ER few times , last one was yesterday for cough and chest pain- pt was given inhaler per ptpt with seizure disorder/chronic back pain /anxiety /depression- pt sees neuro for seizures , taking carbamazepine / keppra was discontinued by her neuro per pt -has f/u apt in few days pt was also admitted with post op abscess following back sx in 11/2023 -had I/D and was rxed with IV antibiotic-seen by ID as well Sue Snow MD Attn: Accounting,[address], [place], [address], [facility] 08/17/2024 14:43:50 5 text/html Annual wellnessTransferring from Kenya Snow MD Cardiovascular risk- HTN: Diagnosis in chart, not on meds- DM2: In remission, not on medicines- HLD: On rosuvastatin. Previously on atorvastatin. Infection risk- Prior testing for HIV? Reports negative test- Prior testing for HepC? Neg in 2012- Not sexually active- Vaccines due? COVID, flu Plans for - S/p hysterectomy in 2003 for uterine cancer Cancer screenings- Breast cancer: No mammo on file- Cervical cancer: N/A - history of hysterectomy for uterine cancer- Colon cancer: Negative Colofit (09/03/2024). Has upcoming colonoscopy scheduled.- Lung cancer: Current smoker - 0.5 ppd (age 10 to present). ED follow upSeizures- Has an upcoming appointment in about 1.5 months. Called neurology office to notify them of recent seizures- Feels like seizures are triggered with increased stressors (illness and pain) Dark stools- Intermittent blood in stools. States stool turns coal black and has a history of EGD that showed blood in her stomach around tracie from gastric bypass.- Has colonoscopy scheduled mid-October- Takes iron supplements routinely FERNANDA SANTANA MD Attn: Accounting,[address] [place], [address], [facility] 10/05/2024 09:53:46 OBGyn Episode No OBEpisode recorded.
--- OUTSIDE RECORDS SUMMARY | 2024-10-13 01:27 | XMS_ITS | Clinical Summary ---
Author Organization [facility] Parametric Address [address] [place] [address] Care Team Providers Care Heddler Tier Name Role Phone Ally Chambers RN Unavailable [phone] Brett Chávez MD Primary Care Provider Source Comments [facility],non-owned Affiliates and Associated Physician Practices is amultiple site organization consisting of ambulatory clinics and hospital sitesin [place], [place], [place] and [place]. This disclosure is being madepursuant to the Care Everywhere program and may not contain all information available regarding this patient. Last updated 18.[facility] Allergies Active Allergy Reactions Criticality Noted Date [...] Active midazolam (Nayzilam) 5 MG/0.1ML nasal spray [place] 0.1 mL into the nose as needed for Seizures (Only if seizure occurres) 03/05/2024 Active vitamin D, ergocalciferol, (Drisdol) 1.25 MG (60467 UT) capsule Take 1 (one) capsule by [...] nausea 12/24/2023 PICC (peripherally inserted central catheter) [facility] 12/16/2023 Lumbar pain 12/12/2023 Abscess after procedure 12/12/2023 Seizures Anxiety Encounters Date Type Department Care Team Description 10/08/2024 5:40 PM BRAIDER SETTER - 10/09/2024 5:57 AM BRAIDER SETTER Hospital Encounter [facility] [address] [place] [address] Bronson Shaw MD Mayer, Joshua C, DO Hematemesis with nausea (Primary Dx); History of Janell-en-Y gastric bypass; History of peptic ulcer disease; Upper GI bleed Discharge Disposition: Left Against Medical Advice/Discontinued Care 10/08/2024 Travel 09/19/2024 7:35 PM BRAIDER SETTER - 09/19/2024 8:23 PM BRAIDER SETTER Emergency [facility] [address] [place] [address] Christiano Otto MD Left hip pain; Fall, initial encounter; Musculoskeletal pain Discharge Disposition: Home or Self Care 09/19/2024 Travel 09/14/2024 11:30 AM BRAIDER SETTER Office Visit [facility] - Neurosurgery [address] [facility], [place] [address] Fahad Monzon MD Chronic bilateral low back pain with sciatica, sciatica laterality unspecified (Primary Dx) 09/14/2024 Travel from Last 3 Months Family History Medical History Relation Name Comments CAD (Coronary Artery Disease) Father Hypertension Father Atrial Fibrillation Mother CAD (Coronary Artery Disease) Mother CVA Mother Relation Name Status Comments Father Mother Social History Tobacco Use Types Packs/Day Years [...] Recorded Patient Health Questionnaire-2 Score 0 04/27/2024 [facility] Occup[facility] ional Health - Occupational Stress [...] place to sleep or slept in a fpc (including now)? Patient declined 12/13/2023 Sex and Gender Information Value Date Recorded Sex Assigned at Not on file Gender Identity Not on file Sexual Orientation Not on file Last Filed Vital Signs Vital Sign Reading Time Taken Comments Blood Pressure 103/63 10/09/2024 5:00 AM BRAIDER SETTER Pulse 62 10/09/2024 5:00 AM BRAIDER SETTER Temperature 36 C (96.8 F) 10/08/2024 2:39 PM BRAIDER SETTER Respiratory Rate 18 10/09/2024 5:00 AM BRAIDER SETTER Oxygen Saturation 93% 10/09/2024 5:00 AM BRAIDER SETTER Inhaled Oxygen Concentration - - Weight 108.9 kg (240 lb) 10/08/2024 2:39 PM BRAIDER SETTER Height 190.5 cm (6' 3 ) 10/08/2024 2:39 PM BRAIDER SETTER Body Mass Index 30 10/08/2024 2:39 PM BRAIDER SETTER Plan of Treatment Upcoming Encounters Date Type Department Care Team (Late st Contact Info) Description 10/21/2024 2:00 PM CDT Office Visit [facility] - Neurology [address] [place] [address], [facility] [place] [address] Charanjit Jackson MD [address] [place] [address] [place] [address] Health Maintenance Due Date Last Done Comments COLOGUARD (AGES 45-75) - COLON CA SCREENING 1978 COLON MONITORING 1978 COLONOSCOPY - COLON CA SCREENING 1978 CT COLONOGRAPHY - COLON CA SCREENING 1978 Colorectal Cancer Screening 1978 FIT - COLON CA SCREENING 1978 FLEX SIG - COLON CA SCREENING 1978 LIPID TESTING 1978 HIV SCREENING 1993 DTAP/TDAP/TD VACCINES (1 - Tdap) 1997 HEPATITIS B VACCINE (1 of 3 - 19+ 3-dose series) 1997 PNEUMOCOCCAL VACCINE (1 of 2 - PCV) 1997 COVID-19 VACCINE ( - 2023- season) 2024 INFLUENZA VACCINE (#1) 2024 DEPRESSION SCREENING 08/05/2024 01/10/2024 MAMMOGRAM 10/30/2025 10/31/2023, 10/04, 10/31/2023, Additional history exists SCREENING FOR DIABETES 10/10/2027 , 10/08/2024, 01/30/2024, Additional history exists ZOSTER VACCINE (1 of 2) 2028 HEPATITIS C SCREENING Completed 05/07/2013 HIB VACCINE Aged Out No longer eligi ble based on patient's age to complete this topic HPV VACCINE Aged Out No longer eligi ble based on patient's age to complete this topic MENINGOCOCCAL (Group B) VACCINE Aged Out No longer eligible based on patient's age to complete this topic MENINGOCOCCAL VACCINE Aged Out No rohan micheal eligible based on patient's age to complete this topic Procedures Procedure Name Priority Date/Time Associated Diagnosis Comments CARDIAC EKG ORDER 10/12/2024 1:0 3 PM CDT CBC W AUTO DIFFERENTIAL STAT 10/09/2024 2:19 AM BRAIDER SETTER MAGNESIUM BLOOD STAT 10/09/2024 2:19 AM BRAIDER SETTER PHOSPHORUS BLOOD STAT 10/09/2024 2:19 AM BRAIDER SETTER BASIC METABOLIC PANEL (CALCIUM TOTAL) STAT 10/09/2024 2:[address] NECK SOFT TISSUE W CONT STAT 10/08/2024 7:44 PM BRAIDER SETTER Hematemesis with nausea CT CHEST ABDOMEN PELVIS W CONT STAT 10/08/2024 7:44 PM BRAIDER SETTER Hematemesis with nausea HGB HCT PANEL STAT 10/08/2024 7:10 PM BRAIDER SETTER SARS-COV-2 (COVID-19)+INFLU A+B PCR RAPID STAT 10/08/2024 7:09 PM BRAIDER SETTER TYPE + SCREEN PANEL STAT 10/08/2024 3 :25 PM BRAIDER SETTER PT-INR [facility] STAT 10/08/2024 3:25 PM BRAIDER SETTER COMPREHENSIVE METABOLIC PANEL STAT 10/08/2024 3:25 PM BRAIDER SETTER CBC W AUTO DIFFERENTIAL STAT 10/08/2024 3:25 PM BRAIDER SETTER XR KNEE RIGHT 3VW STAT 09/19/2024 7:4 8 PM BRAIDER SETTER Left hip pain XR PELVIS W LEFT HIP 2VW STAT 09/19/2024 7:47 PM BRAIDER SETTER Left hip pain CT CERVICAL SPINE WO CONTRAST STAT 09/19/2024 7:32 PM BRAIDER SETTER Fall, initial encounter CT THORACIC SPINE WO CONTRAST STAT 09/19/2024 7:32 PM BRAIDER SETTER Fall, initial encounter CT LUMBAR SPINE WO CONTRAST STAT 09/19/2024 7:32 PM BRAIDER SETTER Fall, initial encounter HELICOBACTER PYLORI ANTIGEN FECES Routine 09/02/2024 12:30 PM BRAIDER SETTER H. pylori infection HEPATITIS SCREEN ACUTE Routine 3 5:15 AM CDT from Last 3 Months or Most Recently Relevant to Health Maintenance Results * CARDIAC EKG ORDER (10/12/2024 1:03 PM CDT) Narrative 10/12/2024 1:03 PM CDT Ordered by an unspecified provider. Scanned Document CARDIAC SERVICES ORD ERABLES * (ABNORMAL) CBC W AUTO DIFFERENTIAL (10/09/2024 2:19 AM BRAIDER SETTER) Only the most recent of2 resultswithin the time period is included. WBC 5.3 4.0 - 10.7 x10E9/L 10/09/2024 2:32 AM [facility] RBC Count 4.21 3.90 - 5.20 x10E12/L 10/09/2024 2:32 AM [facility] Hemoglobin 10.0(L) 11.9 - 15.8 g/dL 10/09/2024 2:32 AM [facility] Hematocrit 32.2(L) 34.8 - 46.1 % 10/09/2024 2:32 AM [facility] MCV 76.5(L) 80.0 - 98.0 fL 10/09/2024 2:32 AM [facility] MCH 23.8(L) 26.7 - 33.6 pg 10/09/2024 2:32 AM [facility] MCHC 31.1(L) 31.7 - 36.3 g/dL 10/09/2024 2:32 AM [facility] RDW-CV 19.6(H) 11.3 - 14.8 % 10/09/2024 2:32 AM [facility] Platelet Count 340 150 - 420 x10E9/L 10/09/2024 2:32 AM [facility] MPV 9.3 7.8 - 11.4 fL 10/09/2024 2:32 AM [facility] Neutrophil % 73.3 41.0 - 74.0 % 10/09/2024 2:32 AM [facility] Lymphocyte % 20.8 17.0 - 47.0 % 10/09/2024 2:32 AM [facility] Monocyte % 4.3 3.0 - 11.0 % 10/09/2024 2:32 AM [facility] Eosinophil % 0.6 0.0 - 7.0 % 10/09/2024 2:32 AM [facility] Basophil % 0.6 0.0 - 1.6 % 10/09/2024 2:32 AM [facility] Immature Granulocytes % 0.4 0.0 - 1.0 % 10/09/2024 2:32 AM [facility] Neutrophil Absolute 3.88 1.60 - 7.50 x10E9/L 10/09/2024 2:32 AM [facility] Lymphocyte Absolute 1.10 1.00 - 4.40 x10E9/L 10/09/2024 2:32 AM [facility] Monocyte Absolute 0.23 0.15 - 1.00 x10E9/L 10/09/2024 2:32 AM [facility] Eosinophil Absolute 0.03 0.00 - 0.60 x10E9/L 10/09/2024 2:32 AM [facility] Basophil Absolute 0.03 0.00 - 0.13 x10E9/L 10/09/2024 2:32 AM [facility] Blood BLOOD SPECIMEN / Unknown Venipuncture / Unknown 10/09/2024 2:19 AM [facility] 10/09/2024 2:23 AM [facility] Nilesh Krause DO LAB - HEMATOLOGY ORD ERABLES [facility] [address] [place] [address] [phone] * (ABNORMAL) BASIC METABOLIC PANEL (CALCIUM TOTAL) (10/09/2024 2:19 AM BRAIDER SETTER) BUN 9 7 - 26 mg/dL 10/09/2024 2:48 AM [facility] Creatinine 0.60 0.56 - 0.96 mg/dL 10/09/2024 2:48 AM [facility] Sodium 140 136 - 145 mmol/L 10/09/2024 2:48 AM [facility] Potassium 4.4 3.5 - 4.5 mmol/L 10/09/2024 2:48 AM [facility] Chloride 110(H) 98 - 107 mmol/L 10/09/2024 2:48 AM [facility] CO2 21(L) 22 - 29 mmol/L 10/09/2024 2:48 AM [facility] Glucose 104(H) 70 - 99 mg/dL 10/09/2024 2:48 AM [facility] Calcium 8.4 8.4 - 10.2 mg/dL 10/09/2024 2:48 AM [facility] Anion Gap 9 6 - 16 10/09/2024 2:48 AM [facility] BUN/Creatinine Ratio 15 7 - 23 10/09/2024 2:48 AM [facility] Osmolality Calculated 289 275 - 295 mOsm/kg 10/09/2024 2:48 AM [facility] eGFR by CKD-EPI >90 >=90 mL/min/1.7 3 m2 10/09/2024 2:48 AM [facility] Blood BLOOD SPECIMEN / Unknown Venipuncture / Unknown 10/09/2024 2:19 AM BRAIDER SETTER 10/09/2024 2:23 AM BRAIDER SETTER Nilesh Long Krause DO LAB - CHEMISTRY ORDE KALEB [address] [address], [place] [phone] * PHOSPHORUS BLOOD (10/09/2024 2:19 AM BRAIDER SETTER) Phosphorus 4.4 2.9 - 5.1 mg/dL 10/09/2024 2:48 AM [facility] Blood BLOOD SPECIMEN / Unknown Venipuncture / Unknown 10/09/2024 2:19 AM BRAIDER SETTER 10/09/2024 2:23 AM BRAIDER SETTER Nilesh Mercedes Krause LAB - CHEMISTRY ORDE KALEB Performing Organization Address City/[facility]/ZIP Co de Phone Number [address] [address], [place] [phone] * MAGNESIUM BLOOD (10/09/2024 2:19 AM BRAIDER SETTER) Magnesium 1.9 1.6 - 2.6 mg/dL 10/09/2024 2:48 AM [facility] Blood BLOOD SPECIMEN / Unknown Venipuncture / Unknown 10/09/2024 2:19 AM BRAIDER SETTER 10/09/2024 2:23 AM BRAIDER SETTER Nilesh Mercedes Krause LAB - CHEMISTRY ORDE [place] [address] [address] [phone] * CT Chest Abdomen Pelvis W Cont (10/08/2024 7:44 PM BRAIDER SETTER) Anatomical Region Laterality Modality Chest, Abdomen, Pelvis Computed Tomography 10/08/2024 7:51 PM BRAIDER SETTER Impressions 10/08/2024 10:55 PM BRAIDER SETTER Impression: 1.Postoperative appearance of Janell-en-Y gastric bypass. [...] 10/08/2024 10:55 PM Narrative 10/08/2024 10:55 PM BRAIDER SETTER Procedure Information DATE: 10/08/2024 7:45 PM EXAMINATION: [...] Soft Tissue W Cont (10/08/2024 7:44 PM BRAIDER SETTER) Anatomical Region Laterality Modality Head Computed Tomogra phy 10/08/2024 8:01 PM BRAIDER SETTER Impressions 10/08/2024 8:53 PM BRAIDER SETTER IMPRESSION: 1.No evidence of soft tissue swelling, mass or acute pathology in the neck. 2.There is no evidence of abscess, pneumomediastinum or soft tissue air. The report is dictated by Diana Real MD (resident engineer) ICarlos MD have personally reviewed and interpreted this examination/study. > Interpreting Provider: Carlos Carrera MD on 10/08/2024 8:53 PM Narrative 10/08/2024 8:53 PM BRAIDER SETTER PROCEDURE: CT NECK SOFT TISSUE W CONT, DATE/TIME OF EXAM: 10/08/2024 7:45 PM, LOCATION [facility] INDICATION: R11.14: Bilious vomiting with nausea ADDITIONAL [...] changes in the lung apices. Procedure Note Carols Carrera MD - 10/08/2024 PROCEDURE: CT NECK SOFT TISSUE W CONT, DATE/TIME OF EXAM: 57:45 PM, LOCATION [facility] INDICATION: R11.14: Bilious vomiting with nausea ADDITIONAL [...] report is dictated by Diana Real MD (resident engineer) I, Carlos Carrera MD have personally reviewed and interpreted this examination/study. > Interpreting Provider: Carlos Carrera MD on 10/08/2024 8:53 PM Bronson Shaw MD CT ORDERABLES * (ABNORMAL) HGB HCT PANEL (10/08/2024 7:10 PM BRAIDER SETTER) Hemoglobin 10.9(L) 11.9 - 15.8 g/dL 10/08/2024 7:21 PM BRAIDER SETTER [facility] Hematocrit 35.8 34.8 - 46.1 % 10/08/2024 7:21 PM BRAIDER SETTER [facility] Blood BLOOD SPECIMEN / Unknown Venipuncture / Unknown 10/08/2024 7:10 PM BRAIDER SETTER 10/08/2024 7:16 PM BRAIDER SETTER Bronson Shaw MD LAB - HEMATOLOG Y ORDERABLES [facility] [address] [place] [address], [facility] [phone] * SARS-COV-2 (COVID-19)+INFLU A+B PCR RAPID (10/08/2024 7:09 PM BRAIDER SETTER) COVID-19 PCR Not detected Not detected 10/09/19 7:57 PM BRAIDER SETTER [facility] Influenza A Rapid YULIANA Not Detected Not Detected 10/08/2024 7:57 PM BRAIDER SETTER [facility] Influenza B [place] Rapid Not Detected Not Detected 10/08/2024 7:57 PM BRAIDER SETTER [facility] Microbiology SPECIMEN FROM NASOPHARYNGEAL STRUCTURE / Unknown Collection / Unknown 10/08/2024 7:09 PM BRAIDER SETTER 10/08/2024 7:14 PM BRAIDER SETTER Narrative [facility] - 10/08/2024 7:57 PM BRAIDER SETTER Influenza assay performed by [employer]. [...] acid amplification assay performance was validated by [facility]. This test has been authorized by the [...] - MICROBIOL OGY ORDERABLES Performing Organization Address [facility] Co de Phone Number [address] [address], [facility] [phone] * (ABNORMAL) PT-INR [facility] (10/08/2024 3:25 PM BRAIDER SETTER) Pathologist [facility] PT 12.0(L) 12.1 - 14.8 Seconds 10/08/2024 3:58 PM BRAIDER SETTER [facility] INR 0.9 See Comment 10/08/2024 3:58 PM BRAIDER SETTER [facility] Comment:The suggested therap eutic range for standard coumadin (warfarin) therapy is an INR of 2.0-3.0. For high-risk patients (Mechanical Mitral Valve Prosthesis, etc.), the suggested prophylactic therapeutic range is an INR of 2.5-3.5. Blood BLOOD SPECIMEN / Unknown Venipuncture / Unknown 10/08/2024 3:25 PM BRAIDER SETTER 10/08/2024 3:33 PM BRAIDER SETTER Zeinab Taylor MANAGER OPERATIONS-FENDER FINISHER LAB - COAGUL ATION ORDERABLES Performing Organization Address [facility] Co de Phone Number [address] [address], [facility] [phone] * TYPE + SCREEN PANEL (10/08/2024 3:25 PM BRAIDER SETTER) Antibody Screen NEG 4:24 PM BRAIDER SETTER [facility] ABO Rh O POS 10/08/2024 4:24 PM BRAIDER SETTER [facility] Blood Bank BLOOD SPECIMEN / Unknown Venipuncture / Unknown 10/08/2024 3:25 PM BRAIDER SETTER 10/08/2024 3:40 PM [facility] Zeinab Taylor MANAGER OPERATIONS-FENDER FINISHER LAB - BLOOD BANK ORDERABLES [facility] [address] [place] [address], [facility] [phone] * COMPREHENSIVE METABOLIC PANEL (10/08/2024 3:25 PM [facility]) BUN 11 7 - 26 mg/dL 10/08/2024 4:02 PM [facility] Creatinine 0.63 0.56 - 0.96 mg/dL 10/08/2024 4:02 PM [facility] Sodium 138 136 - 145 mmol/L 10/08/2024 4:02 PM [facility] Potassium 4.2 3.5 - 4.5 mmol/L 10/08/2024 4:02 PM [facility] Chloride 107 98 - 107 mmol/L 10/08/2024 4:02 PM [facility] CO2 22 22 - 29 mmol/L 10/08/2024 4:02 PM [facility] Glucose 88 70 - 99 mg/dL 10/08/2024 4:02 PM [facility] Calcium 8.9 8.4 - 10.2 mg/dL 10/08/2024 4:02 PM [facility] Protein Total 6.8 6.0 - 8.3 g/dL 10/08/2024 4:02 PM [facility] Albumin 3.9 3.4 - 5.0 g/dL 10/08/2024 4:02 PM [facility] Bilirubin Total 0.2 0.2 - 1.2 mg/dL 10/08/2024 4:02 PM [facility] Alkaline Phosphatase 111 40 - 150 U/L 10/08/2024 4:02 PM [facility] ALT 23 5 - 55 U/L 10/08/2024 4:02 PM [facility] AST 25 5 - 34 U/L 10/08/2024 4:02 PM [facility] Anion Gap 9 6 - 16 10/08/2024 4:02 PM [facility] BUN/Creatinine Ratio 17 7 - 23 10/08/2024 4:02 PM [facility] Osmolality Calculated 285 275 - 295 mOsm/kg 10/08/2024 4:02 PM [facility] Albumin/Globulin Ratio 1.3 1.1 - 2.3 10/08/2024 4:02 PM [facility] eGFR by CKD-EPI >90 >=90 mL/min/1.7 3 m2 10/08/2024 4:02 PM [facility] Blood BLOOD SPECIMEN / Unknown Venipuncture / Unknown 10/08/2024 3:25 PM BRAIDER SETTER 10/08/2024 3:35 PM BRAIDER SETTER Zeinab Taylor MANAGER OPERATIONS-FENDER FINISHER LAB - CHEMIS TRY ORDERABLES [facility] [address] [place] [address], [facility] [phone] * XR Knee Right 3Vw (09/19/2024 7:48 PM BRAIDER SETTER) Anatomical Region Laterality Modality Lower Extremity Digital Radiogra phy 09/19/2024 7:44 PM BRAIDER SETTER Impressions 09/20/2024 8:25 AM BRAIDER SETTER IMPRESSION: No acute fracture or dislocation identified. Report dictated by Brennen Antoine DO (resident engineer). ILina MD have personally reviewed and interpreted this examination/study. > Interpreting Provider: Lina Weinberg MD on 09/20/2024 8:25 AM Narrative 09/20/2024 8:25 AM BRAIDER SETTER PROCEDURE: XR KNEE RIGHT 3VW, DATE/TIME OF EXAM: 09/19/2024 7:16 PM, LOCATION [facility] INDICATION: M25.552: Left hip pain ADDITIONAL CLINICAL [...] DATE/TIME OF EXAM: 09/19/2024 7:16 PM, LOCATION [facility] INDICATION: M25.552: Left hip pain ADDITIONAL CLINICAL [...] identified. Report dictated by Brennen Antoine DO (resident engineer). Lina Sewell MD have personally reviewed and interpreted this examination/study. > Interpreting Provider: Lina Weinberg MD on 09/20/2024 8:25 AM Zeinab Taylor MANAGER OPERATIONS-FENDER FINISHER DIAGNOSTIC I MAGING ORDERABLES * XR Pelvis W Left Hip 2Vw (09/19/2024 7:47 PM BRAIDER SETTER) Anatomical Region Laterality Modality Pelvis Digital Radiogra phy 09/19/2024 7:47 PM BRAIDER SETTER Impressions 09/20/2024 8:24 AM BRAIDER SETTER IMPRESSION: No acute fracture identified. Report dictated by Brennen Antoine DO (resident engineer). Lina Sewell MD have personally reviewed and interpreted this examination/study. > Interpreting Provider: Lina Weinberg MD on 09/20/2024 8:24 AM Narrative 09/20/2024 8:24 AM BRAIDER SETTER PROCEDURE: XR PELVIS W LEFT HIP 2VW, DATE/TIME OF EXAM: 09/19/2024 7:48 PM, LOCATION [facility] INDICATION: M25.552: Left hip pain ADDITIONAL CLINICAL [...] DATE/TIME OF EXAM: 09/19/2024 7:48 PM, LOCATION [facility] INDICATION: M25.552: Left hip pain ADDITIONAL CLINICAL INFORMATION: Ordering Provider Reason For Exam: r/o fx Technologist Note: Additional: None. COMPARISON: None. FINDINGS: No acute fracture is identified. The femoral heads appear well-seated within their respective acetabula. The pubic symphysis is intact. Bone density and texture are normal. The sacroiliac joints are normal. IMPRESSION: No acute fracture identified. Report dictated by Brennen Antoine DO (resident engineer). ILina MD have personally reviewed and interpreted this examination/study. > Interpreting Provider: Lina Weinberg MD on 09/20/2024 8:24 AM Zeinab Titus Brandon MANAGER OPERATIONS-FENDER FINISHER DIAGNOSTIC I MAGING ORDERABLES * CT Lumbar Spine Wo Contrast (09/19/2024 7:32 PM BRAIDER SETTER) Anatomical Region Laterality Modality Spine Computed Tomogra phy 09/19/2024 7:40 PM BRAIDER SETTER Impressions 09/19/2024 7:53 PM BRAIDER SETTER IMPRESSION: 1. No evidence of acute fracture in the cervical, thoracic, or lumbar spine. > Interpreting Provider: Jackie Olmedo MD on 09/19/2024 7:53 PM Narrative 09/19/2024 7:53 PM BRAIDER SETTER PROCEDURE: CT CERVICAL SPINE WO CONTRAST, CT THORACIC SPINE WO CONTRAST, CT LUMBAR SPINE WO CONTRAST, DATE/TIME OF EXAM: 09/19/2024 7:32 PM, LOCATION [facility] INDICATION: W19.XXXA: Fall, initial encounter ADDITIONAL CLINICAL [...] DATE/TIME OF EXAM: 09/19/2024 7:32 PM, LOCATION [facility] INDICATION: W19.XXXA: Fall, initial encounter ADDITIONAL CLINICAL [...] endplate compression fractures of the L2 and J2rgvlqhfzn bodies with less than 25% height loss [...] MD on 09/19/2024 7:53 PM Zeinab Taylor MANAGER OPERATIONS-FENDER FINISHER CT ORDERABLE S * CT Thoracic Spine Wo Contrast (09/19/2024 7:32 PM BRAIDER SETTER) Anatomical Region Laterality Modality Spine Computed Tomogra phy 09/19/2024 7:40 PM BRAIDER SETTER Impressions 09/19/2024 7:53 PM BRAIDER SETTER IMPRESSION: 1. No evidence of acute fracture in the cervical, thoracic, or lumbar spine. > Interpreting Provider: Jackie Olmedo MD on 09/19/2024 7:53 PM Narrative 09/19/2024 7:53 PM BRAIDER SETTER PROCEDURE: CT CERVICAL SPINE WO CONTRAST, CT THORACIC SPINE WO CONTRAST, CT LUMBAR SPINE WO CONTRAST, DATE/TIME OF EXAM: 09/19/2024 7:32 PM, LOCATION [facility] INDICATION: W19.XXXA: Fall, initial encounter ADDITIONAL CLINICAL [...] DATE/TIME OF EXAM: 09/19/2024 7:32 PM, LOCATION [facility] INDICATION: W19.XXXA: Fall, initial encounter ADDITIONAL CLINICAL [...] endplate compression fractures of the L2 and [id number] bodies with less than 25% height loss [...] MD on 09/19/2024 7:53 PM Zeinab Taylor MANAGER OPERATIONS-FENDER FINISHER CT ORDERABLE S * CT Cervical Spine Wo Contrast (09/19/2024 7:32 PM BRAIDER SETTER) Anatomical Region Laterality Modality Spine Computed Tomogra phy 09/19/2024 7:40 PM BRAIDER SETTER Impressions 09/19/2024 7:53 PM BRAIDER SETTER IMPRESSION: 1. No evidence of acute fracture in the cervical, thoracic, or lumbar spine. > Interpreting Provider: Jackie Olmedo MD on 09/19/2024 7:53 PM Narrative 09/19/2024 7:53 PM BRAIDER SETTER PROCEDURE: CT CERVICAL SPINE WO CONTRAST, CT THORACIC SPINE WO CONTRAST, CT LUMBAR SPINE WO CONTRAST, DATE/TIME OF EXAM: 09/19/2024 7:32 PM, LOCATION [facility] INDICATION: W19.XXXA: Fall, initial encounter ADDITIONAL CLINICAL [...] DATE/TIME OF EXAM: 09/19/2024 7:32 PM, LOCATION [facility] INDICATION: W19.XXXA: Fall, initial encounter ADDITIONAL CLINICAL [...] endplate compression fractures of the L2 and W1nncopvekv bodies with less than 25% height loss [...] Olmedo MD on 09/19/2024 7:53 PM Zeinab Nicholeemeka Taylor MANAGER OPERATIONS-FENDER FINISHER CT ORDERABLE S * HELICOBACTER PYLORI ANTIGEN FECES (09/02/2024 12:30 PM BRAIDER SETTER) Pathologist [facility] Helicobacter pylori Antigen Stool Negative Negative 09/04/2024 1:46 PM BRAIDER SETTER [facility] [employer] ([facility]) Comment: Performed By: [facility] [address] [place] [address] Cooler Man: Alfonso Mercado MD, PhD CLIA Number: [id number] Stool STOOL SPECIMEN / Unknown Collection / Unknown 09/02/2024 12:30 PM BRAIDER SETTER 09/02/2024 12:31 PM BRAIDER SETTER Bernadette Watson MD LAB - MICROBIOLOGY O RDERABLES [facility]) [address] [place] [address], [facility] * HEPATITIS SCREEN ACUTE (05/07/2013 5:15 AM CDT) Hepatitis A Virus Antibody IgM NONREACTIVE NONREACTIVE [facility] Hepatitis C Antibody NONREACTIVE NONREACTIVE [facility] Comment: Anti-HCV screen indicates no serologic evidence of past or current infection with Hepatitis C Virus. Patients with unexplained liver disease who are immunocompromised or suspected of having acute Hepatitis C infection may benefit from Nucleic Acid Test (SEL[facility]YN) for Hepatitis C Viral RNA to confirm Hepatitis C status. Hepatitis B Virus Surface Antigen NONREACTIVE NONREACTIVE [facility] Hepatitis B Core Virus Antibody IgM NONREACTIVE [facility]REACTIVE [facility] [facility] 05/07/2013 5:15 AM CDT 05/07/2013 5:57 AM CDT Arnold Mireles MD LAB - CHEMISTRY [facility] Organization Address City/State/ZIP Co de Phone Number [address] [phone] from Last 3 Months or Most Recently [...] 9:59 AM 12/31/2023 10:03 PM Care Teams Heddler Tier Relationship Specialty Start Date End Date Brett Chávez MD [address] [place] [phone] PCP - General 08/23/22 Ally Chambers, RN [employer] Drier Helper 09/12/16
[2024-10-13] MEDS: SODIUM CHLORIDE 0.9% IV 1,000 ML 999 ML IV CONT (01:51)
--- OUTSIDE RECORDS SUMMARY | 2024-10-13 01:55 | XMS_ITS | Clinical Summary ---
Author Organization [facility] Address [address] [place] [address] Care Team Providers Care Hair Salon Manager Name Role Phone Brett Chávez MD Primary Care Provider Brett Chávez MD Unavailable [phone] Allergies Active Allergy Reactions Criticality Noted [...] this topic Insurance SWANN SWANN Care Teams Hair Salon Manager Relationship Specialty Start Date End Date Brett Chávez MD [address] [employer] [address] [place] [address] PCP - General FAMILY PRACTICE 02/20/22 Brett Chávez MD [address] [employer] [address] [place] [address] FAMILY PRACTICE 02/20/22
--- OUTSIDE RECORDS SUMMARY | 2024-10-13 01:55 | XMS_ITS | Referral Summary ---
Author Organization [facility] Address [address] [place] [address] Care Team Providers Care Pipe Fitter Gas Pipe Name Role Phone Denver Veliz MD Unavailable Eriberto Skelton MD Unavailable Dalton Fragoso MD Unavailable [phone] Eli Abbott MD Primary Care Provider Encounters Date Type Department Care Team Description 10/07/2024 Telephone [facility] Minimally Invasive Surgery [facility] Medical Office Building [address] [place] [address] Amy Camargo RN 09/29/2024 8:57 PM NURSE TRANSITIONAL - 09/29/2024 11:59 PM NURSE TRANSITIONAL Hospital Encounter [facility] Emergency, Room R Discharge Disposition: Discharge to home or self care 09/29/2024 9:10 PM NURSE TRANSITIONAL - 09/29/2024 11:10 PM NURSE TRANSITIONAL Emergency [facility] Emergency Department [address] [place] [address] Cristina Veras MD Breakthrough seizure (HCC) (Primary Dx) Discharge Disposition: Discharge to home or self care 09/09/2024 Telephone [facility] [address] [place] [address] [address] [place] [address] Tari Elias MA 09/09/2024 1:15 PM NURSE TRANSITIONAL Office Visit [facility] [address] [facility] [address] [place] [address] hChaya Saxena NP Carpal tunnel syndrome, bilateral (Primary Dx); Transient ischemic attack (TIA); Recurrent syncope; Seizures, generalized convulsive (HCC) 08/28/2024 3:33 PM NURSE TRANSITIONAL - 08/28/2024 11:59 PM NURSE TRANSITIONAL Hospital Encounter [facility] Imaging Center [address] [place] [address] Acute bronchitis, unspecified organism Discharge Disposition: Discharge to home or self care 08/12/2024 Orders Only [facility] [address] [place] [address] [address] [address] Brennen Daley MD 08/11/2024 7:53 PM NURSE TRANSITIONAL - 08/11/2024 11:10 PM [facility] Emergency Department [address] [place] [address] Chad David MD [place], [place] Cristina Myalgia (Primary Dx); Acute cough Discharge Disposition: Discharge to home or self care 08/10/2024 2:08 PM NURSE TRANSITIONAL - 08/10/2024 7:05 PM [facility] Emergency Department [address] [place] [address] Seizure (HCC) (Primary Dx); Pneumonia of left lower lobe due to infectious organism Discharge Disposition: Discharge to home or self care 08/08/2024 6:50 PM NURSE TRANSITIONAL - 08/08/2024 6:59 PM [facility] Emergency Department [address] [place] [address] Discharge Disposition: Left without being seen 08/08/2024 1:34 AM NURSE TRANSITIONAL - 08/08/2024 4:27 AM [facility] Emergency Department [address] [place] [address] Discharge Disposition: Left without being seen 08/07/2024 Telephone [facility] [address] [facility] [address] [address] Tari Elias MA 08/03/2024 6:59 PM NURSE TRANSITIONAL - 08/03/2024 10:59 PM [facility] Emergency Department [address] [place] [address] COVID (Primary Dx) Discharge Disposition: Discharge to home or self care 07/26/2024 6:40 PM NURSE TRANSITIONAL - 07/26/2024 8:53 PM [facility] Emergency [facility] Emergency Department [address] [place] [address] Joseph Ford MD Breakthrough seizure (HCC) (Primary Dx) Discharge Disposition: Discharge to home or self care 07/19/2024 9:58 PM NURSE TRANSITIONAL - 07/19/2024 11:19 PM [facility] Emergency [facility] Emergency Department [address] [place] [address] Nilesh Mejia MD Chronic right shoulder pain [...] procedure 12/20/2023 PICC (peripherally inserted central catheter) [facility] 12/20/2023 Transient ischemic attack (TIA) 11/29/2023 Numbness and tingling of left upper extremity Postoperative back pain 11/27/2023 Osteopenia 11/26/2023 Overview (01/16/2024): dexa 07/27 Mixed anxiety and depressive disorder 11/26/2023 Overview (01/16/2024): -pt has psych at [place] Spinal stenosis of lumbar re gion without [...] loss Assessment & Plan (09/16/2023 3:03 PM NURSE TRANSITIONAL): BMI 32.20 Discussed ADA diet Encourage exercising as tolerated Recommend weight loss Abrasion of forearm, left 09/16/2023 Assessment & Plan (09/16/2023 2:58 PM NURSE TRANSITIONAL): Abrasion is healing well without signs or symptoms of infection. Complete the Augmentin. Continue wound care as discussed Bilateral leg numbness 04/23/2023 Assessment & Plan (09/16/2023 3:00 PM NURSE TRANSITIONAL): As a result of bilateral sciatica. Accelerated [...] 04/02/2023 Assessment & Plan (09/16/2023 3:05 PM NURSE TRANSITIONAL): Scheduled for spinal fusion on 10/02/2023 by [...] surgeries. Assessment & Plan (09/16/2023 3:01 PM NURSE TRANSITIONAL): Last reported seizure was on 09/07/2023 Her [...] 02/14/2023 Assessment & Plan (09/16/2023 3:05 PM NURSE TRANSITIONAL): Status post hysterectomy with BSO Assessment & Plan (04/01/2023 3:47 PM CDT): S/p total hysterectomy Positive D-dimer 12/21/2022 Gallbladder with possible hydrops and stone 12/03 Diet-controlled diabetes mellitus 12/21/2022 Assessment & Plan (10/18/2023 10:53 AM CDT): Well controlled. Tries to follow an ADA diet. Her hemoglobin A1c on 10/15/2023 was 5.5%. No current medications. Assessment & Plan (09/16/2023 3:04 PM NURSE TRANSITIONAL): Patient can not recall her last A1c [...] visit Assessment & Plan (09/16/2023 3:02 PM NURSE TRANSITIONAL): She currently smokes 1/2 pack per day [...] 01/15/2008 Assessment & Plan (09/16/2023 2:59 PM NURSE TRANSITIONAL): Managed by Psychiatry, Dr. Fragoso No current medications Denies any SI/HI/SH Anxiety 01/15/2008 Assessment & Plan (09/16/2023 3:00 PM NURSE TRANSITIONAL): Stable. Managed by Dr. Fragoso. No current [...] exercise Assessment & Plan (09/16/2023 3:07 PM NURSE TRANSITIONAL): BP 135/88 in the office today She [...] 04/08/2023 Assessment & Plan (09/16/2023 3:07 PM NURSE TRANSITIONAL): See above Seizure 03/31/2023 10/17/2023 Right arm pain 02/15/2023 10/17/2023 Right arm weakness 02/15/2023 Tobacco use disorder 02/13/2018 024 Assessment & Plan (09/16/2023 3:08 PM NURSE TRANSITIONAL): Currently smokes 1/2 pack per day Not interested in quitting at this time but will discuss at next office visit Seizure disorder 12/19/2013 10/17/2023 Overview (11/08/2016): Seizure disorder Assessment & Plan (09/16/2023 3:08 PM NURSE TRANSITIONAL): Managed by Dr. Barraza Immunizations Immunization Administration [...] drink = 0.6 oz pur e alcohol) [facility] [email or web address] Answer Date Recorded In the past 12 months has e electric, gas, oil, or water [employer] threatened to shut off services in your [...] often do you attend chur ch or jehovah's witness services? Never 04/20/2024 Do you belong to any clubs o r organizations such as bahai groups, unions, fraternal or athletic groups, or [...] place to sleep or slept in a longterm (including now)? No 04/24/2023 Housing Stability Vital Sign Answer Saul e Recorded In the last 12 months, was t here a time when you were not able to pay the mortgage or rent on time? No 04/20/2024 In the past 12 months, how m any times have you moved where you were living? 0 04/20/2024 At any time in the past 12 m [facility], were you homeless or living in a longterm (including now)? No 04/20/2024 Personal Safety Answer Date Recorded Have you ever been in or are you currently in a harmful physical or emotional relationship or is someone making you feel afraid or unsafe? Denies 09/29/2024 Comments No Sex and Gender Information Value Date Recorded Sex Assigned at Not on file Legal Sex Female 12:47 AM NURSE TRANSITIONAL Gender Identity Not on file Sexual Orientation Not on file Last Filed Vital Signs Vital Sign Reading Time Taken Comments Blood Pressure 122/71 09/29/2024 10:30 PM NURSE TRANSITIONAL Pulse 74 09/29/2024 10:30 PM NURSE TRANSITIONAL Temperature 36.6 C (97.9 F) 09/29/2024 9:16 PM NURSE TRANSITIONAL Respiratory Rate 22 09/29/2024 9:1 6 PM NURSE TRANSITIONAL Oxygen Saturation 99% 09/29/2024 10: 30 PM NURSE TRANSITIONAL Inhaled Oxygen Concentration - - Weight 116.5 kg (256 lb 13.4 oz) 09/29/2024 9:21 PM NURSE TRANSITIONAL Height 190 cm (6' 2.8 ) 09/29/2024 9:21 PM NURSE TRANSITIONAL Body Mass Index 32.27 09/29/2024 9:21 PM NURSE TRANSITIONAL Plan of Treatment Upcoming Encounters Date Type Department Care Team (Late st Contact Info) Description 11/17/2024 8:00 AM CDT Hospital Encounter [address] [address] Timothy White MD [address] [place] [address] DR WHEAT [address] [place] [address] 11/17/2024 8:00 AM CDT - 11/17/2024 8:30 AM CDT Surgery [address] [address] Timothy White MD [address] [place] [address] DR WHEAT [address] [place] [address] COLONOSCOPY Scheduled Procedures Name Priority Associated Diagnoses Date/Ti me COLONOSCOPY Family history of colon cancer in mother Encounter for screening colonoscopy 11/17/2024 8:00 AM CDT Procedures Procedure Name Priority Date/Time Associated Diagnosis Comments EGFR STAT 09/29/2024 9:56 PM NURSE TRANSITIONAL DIFFERENTIAL AUTO STAT 09/29/2024 9:5 6 PM NURSE TRANSITIONAL COMPREHENSIVE METABOLIC PANEL STAT 09/29/2024 9:56 PM NURSE TRANSITIONAL CBC WITH AUTO DIFFERENTIAL STAT 09/29/2024 9:56 PM NURSE TRANSITIONAL XR CHEST PA LATERAL 2 VIEWS Schedule Routine, Read Routine (OP Routine) 08/28/2024 3:44 PM NURSE TRANSITIONAL Acute bronchitis, unspecified organism XR CHEST 1 VIEW ED 08/11/2024 9:02 PM NURSE TRANSITIONAL DIFFERENTIAL AUTO Routine 08/11/2024 8:3 4 PM NURSE TRANSITIONAL CBC WITH AUTO DIFFERENTIAL Routine 08/11/2024 8:34 PM NURSE TRANSITIONAL EGFR STAT 08/11/2024 8:34 PM NURSE TRANSITIONAL PRO B-TYPE NATRIURETIC PEPTIDE STAT 08/11/2024 8:34 PM NURSE TRANSITIONAL COMPREHENSIVE METABOLIC PANEL STAT 08/11/2024 8:34 PM NURSE TRANSITIONAL ECG 12-LEAD Routine 08/11/2024 7:57 PM NURSE TRANSITIONAL XR CHEST 1 VIEW ED 08/10/2024 6:46 PM NURSE TRANSITIONAL URINALYSIS AND REFLEX TO MICROSCOPIC AND CULTURE Routine 08/10/2024 4:13 PM NURSE TRANSITIONAL EGFR STAT 08/10/2024 3:41 PM NURSE TRANSITIONAL DIFFERENTIAL AUTO STAT 08/10/2024 3:4 1 PM NURSE TRANSITIONAL CBC WITH AUTO DIFFERENTIAL STAT 08/10/2024 3:41 PM NURSE TRANSITIONAL CARBAMAZEPINE LEVEL, TOTAL STAT 08/10/2024 3:41 PM NURSE TRANSITIONAL COMPREHENSIVE METABOLIC PANEL STAT 08/10/2024 3:41 PM NURSE TRANSITIONAL SEPSIS LACTATE WITH REFLEX Routine 08/10/2024 2:54 PM NURSE TRANSITIONAL ECG 12-LEAD STAT 08/08/2024 4:28 PM NURSE TRANSITIONAL EGFR STAT 08/08/2024 3:26 AM NURSE TRANSITIONAL DIFFERENTIAL AUTO STAT 08/08/2024 3:2 6 AM NURSE TRANSITIONAL TROPONIN T HIGH-SENSITIVITY SERIES (BASELINE, 2HR, 4HR, 6HR) STAT 08/08/2024 3:26 AM NURSE TRANSITIONAL COMPREHENSIVE METABOLIC PANEL STAT 08/08/2024 3:26 AM NURSE TRANSITIONAL CBC WITH AUTO DIFFERENTIAL STAT 08/08/2024 3:26 AM NURSE TRANSITIONAL XR CHEST PA LATERAL 2 VIEWS ED 08/07/2024 11:43 PM NURSE TRANSITIONAL ECG 12-LEAD Routine 08/07/2024 10:[address] CHEST PE W CONTRAST ED 08/03/2024 9:31 PM NURSE TRANSITIONAL INFLUENZA A/B, RSV, AND COVID-19 PCR Routine 08/03/2024 6:58 PM NURSE TRANSITIONAL EGFR STAT 08/03/2024 6:57 PM NURSE TRANSITIONAL DIFFERENTIAL AUTO STAT 08/03/2024 6:5 7 PM NURSE TRANSITIONAL TROPONIN T HIGH-SENSITIVITY SERIES (BASELINE, 2HR, 4HR, 6HR) STAT 08/03/2024 6:57 PM NURSE TRANSITIONAL CBC WITH AUTO DIFFERENTIAL STAT 08/03/2024 6:57 PM NURSE TRANSITIONAL COMPREHENSIVE METABOLIC PANEL STAT 08/03/2024 6:57 PM NURSE TRANSITIONAL ECG 12-LEAD STAT 08/03/2024 6:50 PM NURSE TRANSITIONAL EGFR STAT 07/26/2024 7:01 PM NURSE TRANSITIONAL DIFFERENTIAL AUTO STAT 07/26/2024 7:0 1 PM NURSE TRANSITIONAL COMPREHENSIVE METABOLIC PANEL STAT 07/26/2024 7:01 PM NURSE TRANSITIONAL CBC WITH AUTO DIFFERENTIAL STAT 07/26/2024 7:01 PM NURSE TRANSITIONAL ECG 12-LEAD STAT 07/19/2024 9:23 PM NURSE TRANSITIONAL HEMOGLOBIN A1C Routine 01/16/2024 10:50 AM CDT [...] Maintenance Results * eGFR (09/29/2024 9:56 PM NURSE TRANSITIONAL) eGFR >90 >=60 mL/min/1. 73 m2 Comment: [...] last reviewed 2021. Blood 09/29/2024 9:56 PM NURSE TRANSITIONAL 09/29/2024 9:57 PM NURSE TRANSITIONAL us Cristina Veras MD LAB BLOOD ORDERABLES Final Resul t [facility]ARA [facility] (SABANA HOYOS) [address] [facility] [place] [address] * Differential, auto (09/29/2024 9:56 PM NURSE TRANSITIONAL) Neutrophil abs 3.2 1.5 - 6.5 K/cumm [...] revised on 2017. Blood 09/29/2024 9:56 PM NURSE TRANSITIONAL 09/29/2024 9:57 PM NURSE TRANSITIONAL us Cristina Veras MD LAB BLOOD ORDERABLES Final Resul t [facility] ([place]) [address] [facility] [place] [address] * (ABNORMAL) CBC with auto differential (09/29/2024 9:56 PM NURSE TRANSITIONAL) WBC 5.9 3.8 - 9.9 K/cumm Hgb [...] [facility] ([place]) Blood 09/29/2024 9:56 PM NURSE TRANSITIONAL 09/29/2024 9:57 PM NURSE TRANSITIONAL us Cristina Veras MD LAB BLOOD ORDERABLES Final Resul t [facility] ([place]) [address] [facility] [place] [address] * Comprehensive metabolic panel (09/29/2024 9:56 PM NURSE TRANSITIONAL) Sodium 137 135 - 145 mmol/L Potassium, [...] Hemolyzed S pecimen Blood 09/29/2024 9:56 PM NURSE TRANSITIONAL 09/29/2024 9:57 PM NURSE TRANSITIONAL us Cristina Veras MD LAB BLOOD ORDERABLES Final Resul t [facility] ([place] HOYOS) [address] [facility] [place] [address] * XR Chest PA Lateral 2 Views (08/28/2024 3:44 PM NURSE TRANSITIONAL) Anatomical Region Laterality Modality Body, Chest N/A Computed Radiogr aphy 08/30/2024 11:0 7 PM NURSE TRANSITIONAL Narrative 08/30/2024 11:08 PM NURSE TRANSITIONAL EXAM DESCRIPTION: XR CHEST PA LATERAL 2 [...] Jin Barrett M.D. KT: AMALIA Report ID: [id number] Reading Location: [id number] Procedure Note Jin Barrett MD - 08/30/2024 [...] Jin Barrett M.D. KT: AMALIA Report ID: [id number] Reading Location: [id number] us Sue Snow MD IMG XR PROCEDURES Final Resul t * XR Chest 1 Vw Portable (08/11/2024 9:02 PM NURSE TRANSITIONAL) Anatomical Region Laterality Modality Body, Chest N/A Computed Radiogr aphy 08/11/2024 9:35 PM NURSE TRANSITIONAL Narrative 08/11/2024 9:37 PM NURSE TRANSITIONAL EXAM DESCRIPTION: XR CHEST 1 VIEW REASON [...] Alisha Colmenares M.D. LC: JUNITO Report ID: [id number] Reading Location: [id number] Procedure Note Leslie Colmenares MD - 08/11/2024 [...] Alisha Colmenares M.D. LC: JUNITO Report ID: [id number] Reading Location: [place] [address] Chad David MD IMG XR PROCEDURES Final Resu lt * eGFR (08/11/2024 8:34 PM NURSE TRANSITIONAL) eGFR >90 >=60 mL/min/1. 73 m2 Comment: [...] last reviewed 2021. Blood 08/11/2024 8:34 PM NURSE TRANSITIONAL 08/11/2024 8:51 PM NURSE TRANSITIONAL Chad David MD LAB BLOOD ORDERABLES Final R esult [facility] ([place]) [address] [facility] [place] [address] * Differential, auto (08/11/2024 8:34 PM NURSE TRANSITIONAL) Neutrophil abs 3.8 1.5 - 6.5 K/cumm [...] Eosinophil pct 3.5 % [facility] ([place] HOYOS) Comment: Interpretive Data Percent cell count reference ranges are not reported, since discordance with absolute values may lead to misinterpretation of CBC data. Current Interpretive Data was last revised on 2017. Basophil pct 0.3 % [facility] ([place] HOYOS) Comment: Interpretive Data Percent cell count reference ranges are not reported, since discordance with absolute values may lead to misinterpretation of CBC data. Current Interpretive Data was last revised on 2017. Blood 08/11/2024 8:34 PM NURSE TRANSITIONAL 08/11/2024 10:15 PM NURSE TRANSITIONAL us Cristina Veras MD LAB BLOOD ORDERABLES Final Resul t [facility] ([place] HOYOS) [address] [facility] [place] [address] * Pro B-type natriuretic peptide (08/11/2024 8:34 PM NURSE TRANSITIONAL) NT-proBNP <36 <=300 pg/mL Comment: Interpretive Comments: [...] Revised Date: 2018. Blood 08/11/2024 8:34 PM NURSE TRANSITIONAL 08/11/2024 8:51 PM NURSE TRANSITIONAL Chad David MD LAB BLOOD ORDERABLES Final R esult [facility] ([place]) [address] [facility] [place] [address] * (ABNORMAL) CBC with auto differential (08/11/2024 8:34 PM NURSE TRANSITIONAL) WBC 6.6 3.8 - 9.9 K/cumm Hgb [...] [facility] ([place]) Blood 08/11/2024 8:34 PM NURSE TRANSITIONAL 08/11/2024 10:15 PM NURSE TRANSITIONAL us Cristina Veras MD LAB BLOOD ORDERABLES Final Resul t [facility] ([place]) [address] [facility] [place] [address] * Comprehensive metabolic panel (08/11/2024 8:34 PM NURSE TRANSITIONAL) Sodium 138 135 - 145 mmol/L Potassium, [...] [facility] ([place]) Blood 08/11/2024 8:34 PM NURSE TRANSITIONAL 08/11/2024 8:51 PM NURSE TRANSITIONAL Chad David MD LAB BLOOD ORDERABLES Final R esult Performing Organization Address City/[facility] Co de Phone Number NARA [facility]TE[facility] ([place]) [address] [facility] [place] [address] * ECG 12 lead (08/11/2024 7:57 PM NURSE TRANSITIONAL) 08/11/2024 7:57 PM NURSE TRANSITIONAL Narrative [facility] - 08/12/2024 6:59 AM NURSE TRANSITIONAL Vent Rate: 96 bpm RR Interval: 622 msec WI Interval: 183 msec QRS Duration: 86 msec QT Interval: 331 msec QTC Interval: 385 msec P-R-T Freeland: 28 - 6 - 57 degrees IMPRESSION: SINUS RHYTHM NORMAL ECG NO CHANGE FROM PREVIOUS TRACING NOTED Electronically Signed By: Cruz Claudio MD Chad David MD ECG ORDERABLES Final Result Performing Organization Address [facility] de Phone Number [facility] * XR Chest 1 Vw Portable (08/10/2024 6:46 PM NURSE TRANSITIONAL) Anatomical Region Laterality Modality Body, Chest N/A Computed Radiogr aphy 08/10/2024 6:51 PM NURSE TRANSITIONAL Narrative 08/10/2024 6:52 PM NURSE TRANSITIONAL EXAM DESCRIPTION: XR CHEST 1 VIEW REASON [...] Clover Weinberg D.O. PS: PS Report ID: [id number] Reading Location: [id number] Procedure Note Clover Weinberg, DO - 08/10/2024 [...] Clover Weinberg D.O. PS: PS Report ID: [id number] Reading Location: [place] [address] Elif Killian MD IMG XR PROCEDURES F inal Result * Urinalysis reflex to microscopic and culture Urine (08/10/2024 4:13 PM NURSE TRANSITIONAL) Color, ur Yellow Yellow Clarity, ur Clear Clear NARA Lopes (SABANA HOYOS) Specific gravity, ur 1.009 1.003 - 1.030 [...] tendency for uric acid stone formation. Source: [facility] [email or web address] Current Interpretive Data was last revised on [...] [facility] ([place]) Urine 08/10/2024 4:13 PM NURSE TRANSITIONAL 08/10/2024 4:15 PM NURSE TRANSITIONAL Diane DOTSON LAB MICROBIOLOGY - GENERAL [place] Final Result [facility] ([place]) [address] [facility] [place] [address] * eGFR (08/10/2024 3:41 PM NURSE TRANSITIONAL) eGFR >90 >=60 mL/min/1. 73 m2 Comment: [...] last reviewed 2021. Blood 08/10/2024 3:41 PM NURSE TRANSITIONAL 08/10/2024 3:43 PM NURSE TRANSITIONAL us Diane DOTSON LAB BLOOD ORDERABLES Final Resu lt [facility] ([place] HOYOS) [address] [facility] [place] [address] * Differential, auto (08/10/2024 3:41 PM NURSE TRANSITIONAL) Neutrophil abs 4.4 1.5 - 6.5 K/cumm [...] revised on 2017. Blood 08/10/2024 3:41 PM NURSE TRANSITIONAL 08/10/2024 3:43 PM NURSE TRANSITIONAL us Diane DOTSON LAB BLOOD ORDERABLES Final Resu lt [facility] ([place]) [address] [facility] [place] [address] * (ABNORMAL) CBC with auto differential (08/10/2024 3:41 PM NURSE TRANSITIONAL) WBC 6.8 3.8 - 9.9 K/cumm Hgb [...] [facility] ([place]) Blood 08/10/2024 3:41 PM NURSE TRANSITIONAL 08/10/2024 3:43 PM NURSE TRANSITIONAL Diane DOTSON LAB BLOOD ORDERABLES Final Resu lt Performing Organization Address City/[facility]/ZIP Co de Phone Number NARA BEN[facility]TE[facility] ([place]) 1 [facility] [place] [address] * Carbamazepine level, total (08/10/2024 3:41 PM NURSE TRANSITIONAL) Carbamazepine 4.6 4.0 - 12.0 mcg/mL Comment: Interpretive Data Therapeutic or Toxic effect of anticonvulsant drugs may occur at different concentrations in different patients and the correlation between dose and clinical effect must be evaluated individually. Current interpretive data was last revised on 13. Testing performed by: [facility], [address] [place]., [address] Blood 08/10/2024 3:41 PM NURSE TRANSITIONAL 08/11/2024 9:52 AM NURSE TRANSITIONAL Diane DOTSON LAB BLOOD ORDERABLES Final Resu lt Performing Organization Address City/[facility]/ZIP Co de Phone Number NARA BEN[facility]TE[facility] ([place]) [address] [facility] [place] [address] * (ABNORMAL) Comprehensive metabolic panel (08/10/2024 3:41 PM NURSE TRANSITIONAL) Sodium 138 135 - 145 mmol/L Potassium, pl 4.3 3.3 - 4.9 mmol/L [facility] Chloride 106 97 - 110 mmol/L [facility] ([place] CO2 22 22 - 32 mmol/L [facility] ([place]) Anion gap 10 2 - 15 mmol/L [facility] ([place]) BUN 12 6 - 25 mg/dL [facility] ([place]) Creatinine 0.57(L) 0.60 - 1.10 mg/dL [facility] ([place] Glucose 94 70 - 199 mg/dL [facility] ([place]) Comment: Interpretive Data Fasting glucose [...] [facility] ([place]) Blood 08/10/2024 3:41 PM NURSE TRANSITIONAL 08/10/2024 3:43 PM NURSE TRANSITIONAL Diane DOTSON LAB BLOOD ORDERABLES Final Resu lt Performing Organization Address City/[facility]/ZIP Co de Phone Number NARA [facility]TE[facility] (SABANA HOYOS) [address] [facility] [place] [address] * Sepsis Lactate w/ Reflex (08/10/2024 2:54 PM NURSE TRANSITIONAL) Sepsis Lactate 1.1 0.7 - 2.0 mmol/L Blood 08/10/2024 2:54 PM NURSE TRANSITIONAL 08/10/2024 2:58 PM NURSE TRANSITIONAL Diane DOTSON LAB BLOOD ORDERABLES Final Resu lt [facility] ([place]) [address] [facility] [place] [address] * ECG 12 lead (08/08/2024 4:28 PM NURSE TRANSITIONAL) 08/08/2024 4:28 PM NURSE TRANSITIONAL Narrative [facility] - 08/09/2024 7:40 AM NURSE TRANSITIONAL Vent Rate: 91 bpm RR Interval: 653 msec WI Interval: 157 msec QRS Duration: 89 msec QT Interval: 330 msec QTC Interval: 379 msec P-R-T Freeland: 63 - 21 - 48 degrees IMPRESSION: SINUS RHYTHM NORMAL ECG Electronically Signed By: Brennen Birmingham MD, [facility] us Maryann DOTSON ECG ORDERABLES Final Result [facility] * Troponin T high-sensitivity series (baseline, 2hr, 4hr, 6hr) (08/08/2024 3:26 AM NURSE TRANSITIONAL) Pathologist [facility] Trop T hs <6 <=14 ng/L Comment: Interpretive Data For further hscTnT resources including the diagnostic algorithm and an aid in interpretation, copy and paste this link: https://nrl.testcatalog.org/show/hsTrop Current Interpretive Data last revised 2020. Blood 08/08/2024 3:26 AM NURSE TRANSITIONAL 08/08/2024 3:30 AM NURSE TRANSITIONAL us Cristóbal Hurd MD LAB BLOOD ORDERABLES Final Result [facility] ([place] HOYOS) [address] [facility] [place] [address] * eGFR (08/08/2024 3:26 AM NURSE TRANSITIONAL) eGFR >90 >=60 mL/min/1. 73 m2 Comment: [...] last reviewed 2021. Blood 08/08/2024 3:26 AM NURSE TRANSITIONAL 08/08/2024 3:30 AM NURSE TRANSITIONAL us Cristóbal Hurd MD LAB BLOOD ORDERABLES Final Result [facility] ([place] [address] [facility] [place] [address] * Differential, auto (08/08/2024 3:26 AM NURSE TRANSITIONAL) Neutrophil abs 3.7 1.5 - 6.5 K/cumm [...] revised on 2017. Blood 08/08/2024 3:26 AM NURSE TRANSITIONAL 08/08/2024 3:30 AM NURSE TRANSITIONAL us Cristóbal Hurd MD LAB BLOOD ORDERABLES Final Result [facility] ([place]) [address] [facility] [place] [address] * (ABNORMAL) CBC with auto differential (08/08/2024 3:26 AM NURSE TRANSITIONAL) WBC 6.5 3.8 - 9.9 K/cumm Hgb [...] [facility] (HARRY) Blood 08/08/2024 3:26 AM NURSE TRANSITIONAL 08/08/2024 3:30 AM NURSE TRANSITIONAL Cristóbal Hurd MD LAB BLOOD ORDERABLES Final Result [facility] (HARRY) [facility] Department [place] [address] * Comprehensive metabolic panel (08/08/2024 3:26 AM NURSE TRANSITIONAL) Sodium 135 135 - 145 mmol/L Potassium, pl 4.2 3.3 - 4.9 mmol/L [facility] (HARRY) Chloride 102 97 - 110 mmol/L [facility] ([facility]Y) CO2 23 22 - 32 mmol/L [facility] (HARRY) Anion gap 10 2 - 15 mmol/L [facility] ([facility]Y) BUN 13 6 - 25 mg/dL [facility] Creatinine 0.64 0.60 - 1.10 [...] [facility] (HARRY) Blood 08/08/2024 3:26 AM NURSE TRANSITIONAL 08/08/2024 3:30 AM NURSE TRANSITIONAL us Cristóbal Hurd MD LAB BLOOD ORDERABLES Final Result [facility] Department [place] [address] * XR Chest PA Lateral 2 Views (08/07/2024 11:43 PM NURSE TRANSITIONAL) Anatomical Region Laterality Modality Body, Chest N/A Computed Radiogr aphy 08/07/2024 11:4 7 PM NURSE TRANSITIONAL Narrative 08/07/2024 11:48 PM NURSE TRANSITIONAL EXAM DESCRIPTION: XR CHEST PA LATERAL 2 [...] Ja Martínez M.D. AM: AM Report ID: [id number] Reading Location: [id number] Procedure Note Ja Martínez MD - 08/07/2024 [...] Ja Martínez M.D. AM: AM Report ID: [id number] Reading Location: [id number] us Cristóbal Hurd MD IMG XR PROCEDURES Final Res ult * ECG 12 lead (08/07/2024 10:54 PM NURSE TRANSITIONAL) 08/07/2024 10:5 4 PM NURSE TRANSITIONAL Narrative [facility] - 08/08/2024 2:32 PM NURSE TRANSITIONAL Vent Rate: 122 bpm RR Interval: 490 msec WI Interval: 163 msec QRS Duration: 84 msec QT Interval: 291 msec QTC Interval: 363 msec P-R-T Freeland: 69 - 32 - 47 degrees IMPRESSION: SINUS TACHYCARDIA POSSIBLE ANTERIOR MYOCARDIAL INFARCTION , PROBABLY OLD [30 ms Q WAVE IN V3/V4, OR R < 0.2 mV IN V4] ABNORMAL RHYTHM ECG NO CHANGE FROM PREVIOUS TRACING NOTED Electronically Signed By: Cruz Claudio MD us Cristóbal Hurd MD ECG ORDERABLES Final Resul t [employer] [facility] * CT Chest PE (CTA) W Contrast (08/03/2024 9:31 PM NURSE TRANSITIONAL) Anatomical Region Laterality Modality Body N/A Computed Tomogra phy 08/03/2024 9:54 PM NURSE TRANSITIONAL Narrative 08/03/2024 9:57 PM NURSE TRANSITIONAL EXAM DESCRIPTION: CT CHEST PE (CTA) W [...] Santi Castrejon M.D. AR: CYN Report ID: [id number] Reading Location: [id number] Procedure Note Santi Castrejon MD - 08/03/2024 [...] Santi Castrejon M.D. AR: CYN Report ID: [id number] Reading Location: [id number] Tfifanie Ortega NP IMG CT PROCEDURES Fi nal Result * (ABNORMAL) Influenza A/B, RSV, and COVID-19 PCR Nasopharyngeal (08/03/2024 6:58 PM NURSE TRANSITIONAL) COVID-19 RNA Positive(A) Negative Influenza A RNA Negative Negative [facility] ([facility]) Influenza B RNA Negative Negative [facility] ([facility]) RSV RNA Negative Negative [facility] (HARRY) Comment: Interpretive data: Testing performed by [facility]. This test is performed [...] performance characteristics have been verified by the [facility]. Results must be considered in the clinical context, and a negative result does not rule out infection. Interpretive Data last revised 2023 Nasopharyngeal 08/03/2024 6: 58 PM NURSE TRANSITIONAL 08/03/2024 7:02 PM NURSE TRANSITIONAL Narrative [facility] (SABANA HOYOS) - 08/03/2024 7:44 PM NURSE TRANSITIONAL Is the Patient experiencing symptoms consistent with COVID?->Yes Elif Killian MD LAB MICROBIOLOGY - GENERAL ORDERABLES Final Result Performing Organization Address City/[facility]/ZIP Co de Phone Number [facility] (SABANA HOYOS) [address] [place] [address] [email or web address] [address] * Troponin T high-sensitivity series (baseline, 2hr, 4hr, 6hr) (08/03/2024 6:57 PM NURSE TRANSITIONAL) [facility] Trop T hs <6 <=14 ng/L Comment: Interpretive Data For further hscTnT resources including the diagnostic algorithm and an aid in interpretation, copy and paste this link: https://nrl.testcatalog.org/show/hsTrop Current Interpretive Data last revised 2020. Blood 08/03/2024 6:57 PM NURSE TRANSITIONAL 08/03/2024 7:02 PM NURSE TRANSITIONAL Elif Killian MD LAB BLOOD ORDERABLE S Final Result Performing Organization Address City/[facility]/ZIP Co de Phone Number [facility] (SABANA HOYOS) [address] [place] [address] Department [place] [email or web address] [address] * eGFR (08/03/2024 6:57 PM NURSE TRANSITIONAL) [facility] eGFR >90 >=60 mL/min/1. 73 m2 Comment: [...] last reviewed 2021. Blood 08/03/2024 6:57 PM NURSE TRANSITIONAL 08/03/2024 7:02 PM NURSE TRANSITIONAL us Elif Killian MD LAB BLOOD ORDERABLE S Final Result [facility] (SABANA HOYOS) [facility] Department [place] [address] * Differential, auto (08/03/2024 6:57 PM NURSE TRANSITIONAL) Neutrophil abs 2.3 1.5 - 6.5 K/cumm [...] revised on 2017. Blood 08/03/2024 6:57 PM NURSE TRANSITIONAL 08/03/2024 7:02 PM NURSE TRANSITIONAL us Elif Killian MD LAB BLOOD ORDERABLE S Final Result [facility] (HARRY) [facility] [place] [address] * (ABNORMAL) CBC with auto differential (08/03/2024 6:57 PM NURSE TRANSITIONAL) WBC 4.5 3.8 - 9.9 K/cumm Hgb [...] [facility] ([facility]ARRY) Blood 08/03/2024 6:57 PM NURSE TRANSITIONAL 08/03/2024 7:02 PM NURSE TRANSITIONAL us Elif Killian MD LAB BLOOD ORDERABLE S Final Result [facility] (HARRY) [facility] Department [place] [address] * (ABNORMAL) Comprehensive metabolic panel (08/03/2024 6:57 PM NURSE TRANSITIONAL) Sodium 137 135 - 145 mmol/L Potassium, pl 4.1 3.3 - 4.9 mmol/L [facility] ([facility] Chloride 105 97 - 110 mmol/L [facility] ([place]ARRY) CO2 19(L) 22 - 32 mmol/L [facility] (HARRY) Anion gap 13 2 - 15 mmol/L [facility] ([facility]) BUN 14 6 - 25 mg/dL [facility] ([place]) Creatinine 0.67 0.60 - 1.10 mg/dL [facility] ([place]ARRY) Glucose 92 70 - 199 mg/dL [facility] ([facility]) Comment: Interpretive Data Fasting glucose [...] [facility] ([facility]ARRY) Blood 08/03/2024 6:57 PM NURSE TRANSITIONAL 08/03/2024 7:02 PM NURSE TRANSITIONAL Elif Killian MD LAB BLOOD ORDERABLE S Final Result [facility] (HARRY) [facility] [place] [address] * ECG 12 lead (08/03/2024 6:50 PM NURSE TRANSITIONAL) 08/03/2024 6:50 PM NURSE TRANSITIONAL Narrative [facility] - 08/04/2024 7:51 AM NURSE TRANSITIONAL Vent Rate: 104 bpm RR Interval: 574 msec WI Interval: 161 msec QRS Duration: 89 msec QT Interval: 314 msec QTC Interval: 374 msec P-R-T Freeland: 54 - 55 - 50 degrees IMPRESSION: SINUS TACHYCARDIA LOW QRS VOLTAGE IN PRECORDIAL LEADS [QRS DEFLECTION < 1.0 mV IN CHEST LEADS] ABNORMAL RHYTHM ECG NO CHANGE FROM PREVIOUS TRACING NOTED Electronically Signed By: Cruz Claudio MD Elif Killian MD ECG ORDERABLES Fin al Result [facility] * eGFR (07/26/2024 7:01 PM NURSE TRANSITIONAL) eGFR >90 >=60 mL/min/1. 73 m2 Comment: [...] last reviewed 2021. Blood 07/26/2024 7:01 PM NURSE TRANSITIONAL 07/26/2024 7:13 PM NURSE TRANSITIONAL us Joseph Ford MD LAB BLOOD ORDERABLES Final Res ult [facility] (SABANA HOYOS) [facility] Department [place] [address] * Differential, auto (07/26/2024 7:01 PM NURSE TRANSITIONAL) Neutrophil abs 3.5 1.5 - 6.5 K/cumm [...] revised on 2017. Blood 07/26/2024 7:01 PM NURSE TRANSITIONAL 07/26/2024 7:13 PM NURSE TRANSITIONAL us Joseph Ford MD LAB BLOOD ORDERABLES Final Res ult [facility] (HARRY) [facility] Department [place] [address] * (ABNORMAL) CBC with auto differential (07/26/2024 7:01 PM NURSE TRANSITIONAL) Pathologist [facility] WBC 5.9 3.8 - 9.9 K/cumm Hgb [...] [facility] (HARRY) Blood 07/26/2024 7:01 PM NURSE TRANSITIONAL 07/26/2024 7:13 PM NURSE TRANSITIONAL us Joseph Ford MD LAB BLOOD ORDERABLES Final Res ult [facility] ([place]ARRY) [facility] Department [place] [address] * Comprehensive metabolic panel (07/26/2024 7:01 PM NURSE TRANSITIONAL) Pathologist [facility] Sodium 137 135 - 145 mmol/L Potassium, [...] [facility] (HARRY) Blood 07/26/2024 7:01 PM NURSE TRANSITIONAL 07/26/2024 7:13 PM NURSE TRANSITIONAL us Joseph Ford MD LAB BLOOD ORDERABLES Final Res ult [facility] (HARRY) [facility] [place] [address] * ECG 12 lead (07/19/2024 9:23 PM NURSE TRANSITIONAL) 07/19/2024 9:23 PM NURSE TRANSITIONAL Narrative [facility] - 07/20/2024 4:33 PM NURSE TRANSITIONAL Vent Rate: 83 bpm RR Interval: 715 msec WI Interval: 152 msec QRS Duration: 88 msec QT Interval: 325 msec QTC Interval: 365 msec P-R-T Freeland: 75 - 61 - 77 degrees IMPRESSION: SINUS RHYTHM NORMAL ECG NO CHANGE FROM PREVIOUS TRACING NOTED Electronically Signed By: Cruz Claudio MD Tom Maier MD ECG ORDERABLES Final Resul t Performing Organization Address [facility] Co de Phone Number [facility] * Albumin Creatinine Ratio, Urine (01/16/2024 10:50 AM CDT) Albumin Ur <12.0 mg/L Comment: Interpretive Data No reference range established. Current interpretive data was last revised 2018. Creatinine Ur 143.7 mg/dL [facility] Comment: Interpretive Data No reference range established. Current interpretive data was last revised 2018. Albumin Creatinine Ratio, Ur <8 1 - 29 mg/g [facility] Urine 01/16/2024 10:5 0 AM CDT 01/16/2024 7:12 PM CDT Result [facility] Tahira Kelly NP LAB URINE ORDERABLES Final Re sult Performing Organization Address [facility] de Phone Number [facility] [address] [address] * Hemoglobin A1c (01/16/2024 10:50 AM CDT) Pathologist [facility] Hgb A1C 5.3 4.0 - 5.6 % Estimated Average Glucose 105 mg/dL [facility] Comment: The ADA recommends reporting an estimated Average Glucose (eAG) with all Hemoglobin A1c results using the equation derived from a study of 507 normal and diabetic adults. Minority populations were underrepresented and children were not included. (Diabetes Care 31:3994-7517, 2008). The eAG is not equivalent to a fasting glucose. Blood 01/16/2024 10:5 0 AM CDT 01/16/2024 7:12 PM CDT Result [facility] Tahira Kelly NP LAB BLOOD ORDERABLES Final Re sult Performing Organization Address [facility] Co de Phone Number [facility] [address] [place] [address] * (ABNORMAL) Lipid panel (01/16/2024 10:50 AM [...] revised on 2018. HDL 55 >=40 mg/dL [facility] Comment: Interpretive Data Ages < or [...] LAB BLOOD ORDERABLES Final Re sult [facility] [address] Department [place] [address] * SCREENING MAMMOGRAM BILATERAL W CHICA (10/31/2023 [...] suspicious change on mammogram. us Tahira Kelly HIGH ENERGY FORMING EQUIPMENT OPERATOR IMG MAMMO PROCEDURES Final Re sult * Hepatitis panel, acute (05/16/2014 5:29 PM CDT) HepBsAg NONREACT NONREACTIVE Comment: Siemens CentaurXP using AVRIL (chemiluminescent immunoassay) technology. NONREACTIVE: IgM antibodies to Hepatitis B Surface antigen not detected. REACTIVE: IgM antibodies to Hepatitis B Surface antigen detected. Reactive results will be confirmed by neutralization testing. HBsAb (immune status) NONREACT NONREACTIVE 05/16/2014 6:[address] [facility] HISTORICAL RESULTS Comment: Siemens CentaurXP using AVRIL (chemiluminescent immunoassay) technology. NONREACTIVE: IgM antibodies to Hepatitis B Surface antibody not detected. REACTIVE: IgM antibodies to Hepatitis B Surface antibody detected. Hep B core IgM NONREACT NONREACTIVE 4 7:[address] [facility] HISTORICAL RESULTS Comment: Siemens CentaurXP using AVRIL [...] Ab NONREACT NONREACTIVE 05/16/2014 7:[address] [facility] HISTORICAL RESULTS Comment: Siemens ClearhausaurXP using AVRIL (chemiluminescent immunoassay) technology. NONREACTIVE: Antibodies [...] Truong MD LAB MICROBIOLOGY - GENERAL O [facility] Final Result [facility] HISTORICAL RESULTS from Last 3 Months or Most Recently Relevant to Health Maintenance Additional Health Concerns Infection Onset Date Last Indicated COVID: Recovered Comment:Added based on recent COVID infection. 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 ADVANCE DIRECTIVE 04/29/2023 4:00 PM DNR ADVANCE DIRECTIVE 04/26/2023 4:27 PM POWER OF REGIONAL CONTROLLER-MEDICAL Power of Varnish Remover 04/24/2023 8:00 AM * Full Code (Latest [...] 12:32 PM 04/26/2023 12:17 AM Care Teams Pipe Fitter Gas Pipe Relationship Specialty Start Date End Date Eli Abbott MD [address] [address] PCP - General Obstetrics and Gynecology 10/07/24 [place] [address] [address] Consulting Physician Gastroenterology 12/22/22 [place] [address] [address] Consulting Physician Neurosurgery 09/16/23 [place] [address] [place] [address] Referring Physician Psychiatry & Neurology 09/16/23
--- OUTSIDE RECORDS SUMMARY | 2024-10-13 01:55 | XMS_ITS | Clinical Summary ---
Author Organization [facility] Address [address] [place] [address] Care Team Providers Care Metal Framer Name Role Phone Denver Veliz MD Unavailable Eriberto Skelton MD Unavailable [phone] Dalton Fragoso MD Unavailable [phone] Eli Abbott MD Primary Care Provider [phone] Allergies Active Allergy Reactions Criticality Noted Date [...] procedure 12/20/2023 PICC (peripherally inserted central catheter) [facility] 12/20/2023 Transient ischemic attack (TIA) 11/29/2023 Numbness and tingling of left upper extremity Postoperative back pain 11/27/2023 Osteopenia 11/26/2023 Overview (01/16/2024): dexa 07/27 Mixed anxiety and depressive disorder 11/26/2023 Overview (01/16/2024): -pt has psych at [facility] Spinal stenosis of lumbar re gion without [...] loss Assessment & Plan (09/16/2023 3:03 PM AVIATION WARFARE SYSTEMS OPERATOR): BMI 32.20 Discussed ADA diet Encourage exercising as tolerated Recommend weight loss Abrasion of forearm, left 09/16/2023 Assessment & Plan (09/16/2023 2:58 PM AVIATION WARFARE SYSTEMS OPERATOR): Abrasion is healing well without signs or symptoms of infection. Complete the Augmentin. Continue wound care as discussed Bilateral leg numbness 04/23/2023 Assessment & Plan (09/16/2023 3:00 PM AVIATION WARFARE SYSTEMS OPERATOR): As a result of bilateral sciatica. Accelerated [...] 04/02/2023 Assessment & Plan (09/16/2023 3:05 PM AVIATION WARFARE SYSTEMS OPERATOR): Scheduled for spinal fusion on 10/02/2023 by [...] surgeries. Assessment & Plan (09/16/2023 3:01 PM AVIATION WARFARE SYSTEMS OPERATOR): Last reported seizure was on 09/07/2023 Her [...] 02/14/2023 Assessment & Plan (09/16/2023 3:05 PM AVIATION WARFARE SYSTEMS OPERATOR): Status post hysterectomy with BSO Assessment & Plan (04/01/2023 3:47 PM CDT): S/p total hysterectomy Positive D-dimer 12/21/2022 Gallbladder with possible hydrops and stone 12/03 Diet-controlled diabetes mellitus 12/21/2022 Assessment & Plan (10/18/2023 10:53 AM CDT): Well controlled. Tries to follow an ADA diet. Her hemoglobin A1c on 10/15/2023 was 5.5%. No current medications. Assessment & Plan (09/16/2023 3:04 PM AVIATION WARFARE SYSTEMS OPERATOR): Patient can not recall her last A1c [...] visit Assessment & Plan (09/16/2023 3:02 PM AVIATION WARFARE SYSTEMS OPERATOR): She currently smokes 1/2 pack per day [...] 01/15/2008 Assessment & Plan (09/16/2023 2:59 PM AVIATION WARFARE SYSTEMS OPERATOR): Managed by Psychiatry, Dr. Fragoso No current medications Denies any SI/HI/SH Anxiety 01/15/2008 Assessment & Plan (09/16/2023 3:00 PM AVIATION WARFARE SYSTEMS OPERATOR): Stable. Managed by Dr. Fragoso. No current [...] exercise Assessment & Plan (09/16/2023 3:07 PM AVIATION WARFARE SYSTEMS OPERATOR): BP 135/88 in the office today She [...] 04/08/2023 Assessment & Plan (09/16/2023 3:07 PM AVIATION WARFARE SYSTEMS OPERATOR): See above Seizure 03/31/2023 10/17/2023 Right arm pain 02/15/2023 10/17/2023 Right arm weakness 02/15/2023 Tobacco use disorder 02/13/2018 024 Assessment & Plan (09/16/2023 3:08 PM AVIATION WARFARE SYSTEMS OPERATOR): Currently smokes 1/2 pack per day Not interested in quitting at this time but will discuss at next office visit Seizure disorder 12/19/2013 10/17/2023 Overview (11/08/2016): Seizure disorder Assessment & Plan (09/16/2023 3:08 PM AVIATION WARFARE SYSTEMS OPERATOR): Managed by Dr. Barraza Encounters Date Type Department Care Team Description 10/07/[address] [facility] Minimally Invasive Surgery [address] [place] [address] Medical Office Building [address] [place] [address] Amy Camargo RN 09/29/2024 9:10 PM AVIATION WARFARE SYSTEMS OPERATOR - 09/29/2024 11:10 PM AVIATION WARFARE SYSTEMS OPERATOR Emergency [facility] Emergency Department [address] [place] [address] Cristina Veras MD Breakthrough seizure (HCC) (Primary Dx) Discharge Disposition: Discharge to home or self care 09/29/2024 8:57 PM AVIATION WARFARE SYSTEMS OPERATOR - 09/29/2024 11:59 PM AVIATION WARFARE SYSTEMS OPERATOR Hospital Encounter [facility] Emergency, Room R Discharge Disposition: Discharge to home or self care 09/09/2024 1:15 PM AVIATION WARFARE SYSTEMS OPERATOR Office Visit [facility] [address] [place] [address] [address] [address] Chhaya Saxena NP Carpal tunnel syndrome, bilateral (Primary Dx); Transient ischemic attack (TIA); Recurrent syncope; Seizures, generalized convulsive (HCC) 09/09/[address] [facility] [address] [place] [address] [address] [address] Tari Elias MA 08/28/2024 3:33 PM AVIATION WARFARE SYSTEMS OPERATOR - 08/28/2024 11:59 PM AVIATION WARFARE SYSTEMS OPERATOR Hospital Encounter [facility] Imaging Center [address] [place] [address] Acute bronchitis, unspecified organism Discharge Disposition: Discharge to home or self care 08/12/[address] [facility] [address] [place] [address] [address] [place] [id number] Brennen Daley MD 08/11/2024 7:53 PM AVIATION WARFARE SYSTEMS OPERATOR - 08/11/2024 11:10 PM [facility] Emergency [facility] Emergency Department [address] [place] [address] Chad David MD EdaCristina MD Myalgia (Primary Dx); Acute cough Discharge Disposition: Discharge to home or self care 08/10/2024 2:08 PM AVIATION WARFARE SYSTEMS OPERATOR - 08/10/2024 7:05 PM [facility] Emergency Department [address] [place] [address] Seizure (HCC) (Primary Dx); Pneumonia of left lower lobe due to infectious organism Discharge Disposition: Discharge to home or self care 08/08/2024 6:50 PM AVIATION WARFARE SYSTEMS OPERATOR - 08/08/2024 6:59 PM [facility] Emergency Department [address] [place] [address] Discharge Disposition: Left without being seen 08/08/2024 1:34 AM AVIATION WARFARE SYSTEMS OPERATOR - 08/08/2024 4:27 AM [facility] Emergency Department [address] [place] [address] Discharge Disposition: Left without being seen 08/07/[address] [facility] [address] [phone] Tari Elias MA 08/03/2024 6:59 PM AVIATION WARFARE SYSTEMS OPERATOR - 08/03/2024 10:59 PM [facility] Emergency Department [address] [place] [address] COVID (Primary Dx) Discharge Disposition: Discharge to home or self care 07/26/2024 6:40 PM AVIATION WARFARE SYSTEMS OPERATOR - 07/26/2024 8:53 PM [facility] Emergency [facility] Emergency Department [address] [place] [address] Joseph Ford MD Breakthrough seizure (HCC) (Primary Dx) Discharge Disposition: Discharge to home or self care 07/19/2024 9:58 PM AVIATION WARFARE SYSTEMS OPERATOR - 07/19/2024 11:19 PM [facility] Emergency Department [address] [place] [address] Nilesh Mejia MD Chronic right shoulder [...] of Stroke; Coronary artery disease Son 1 Julia nary artery disease; Seizures Son 2 Seizure [...] drink = 0.6 oz pur e alcohol) [facility] Utilities Answer Date Recorded In the past 12 months has th e [employer], gas, oil, or water [employer] threatened to shut off services in your [...] often do you attend chur ch or moravian services? Never 04/20/2024 Do you belong to [...] or slept in a detention (including now)? No 04/24/2023 Housing Stability Vital Sign Answer Saul e Recorded In the last 12 months, was t here a time when you were not able to pay the mortgage or rent on time? No 04/20/2024 In the past 12 months, how m any times have you moved where you were living? 0 04/20/2024 At any time in the past 12 m [facility], were you homeless or living in a detention (including now)? No 04/20/2024 Personal Safety Answer Date Recorded Have you ever been in or are you currently in a harmful physical or emotional relationship or is someone making you feel afraid or unsafe? Denies 09/29/2024 Comments No Sex and Gender Information Value Date Recorded Sex Assigned at Not on file Legal Sex Female 12:47 AM AVIATION WARFARE SYSTEMS OPERATOR Gender Identity Not on file Sexual Orientation Not on file Obstetrics History Para Term AB IAB SAB Ectopic Multiple Livin g Live Births 4 4 4 Date Outcome GA Total Labor Labor/2nd/3rd Weight Sex Type Anes PTL Lilia A1 A5 Name Clin Term Term Term Term Last Filed Vital Signs Vital Sign Reading Time Taken Comments Blood Pressure 122/71 09/29/2024 10:30 PM AVIATION WARFARE SYSTEMS OPERATOR Pulse 74 09/29/2024 10:30 PM AVIATION WARFARE SYSTEMS OPERATOR Temperature 36.6 C (97.9 F) 09/29/2024 9:16 PM AVIATION WARFARE SYSTEMS OPERATOR Respiratory Rate 22 09/29/2024 9:16 PM AVIATION WARFARE SYSTEMS OPERATOR Oxygen Saturation 99% 09/29/2024 10: 30 PM AVIATION WARFARE SYSTEMS OPERATOR Inhaled Oxygen Concentration - - Weight 116.5 kg (256 lb 13.4 oz) 09/29/2024 9:21 PM AVIATION WARFARE SYSTEMS OPERATOR Height 190 cm (6' 2.8 ) 09/29/2024 9:21 PM AVIATION WARFARE SYSTEMS OPERATOR Body Mass Index 32.27 09/29/2024 9:21 PM AVIATION WARFARE SYSTEMS OPERATOR Plan of Treatment Upcoming Encounters Date Type Department Care Team (Late st Contact Info) Description 11/17/2024 8:00 AM CDT Hospital Encounter [address] [address] Timothy White MD [address] [place] [address] DR WHEAT [address] [place] [address] 11/17/2024 8:00 AM CDT - 11/17/2024 8:30 AM CDT Surgery [address] [address] Timothy White MD [address] [place] [address] DR WHEAT [address] [place] [address] COLONOSCOPY Scheduled Procedures Name Priority Associated Diagnoses [...] Diagnosis Comments EGFR STAT 09/29/2024 9:56 PM AVIATION WARFARE SYSTEMS OPERATOR DIFFERENTIAL AUTO STAT 09/29/2024 9:5 6 PM AVIATION WARFARE SYSTEMS OPERATOR COMPREHENSIVE METABOLIC PANEL STAT 09/29/2024 9:56 PM AVIATION WARFARE SYSTEMS OPERATOR CBC WITH AUTO DIFFERENTIAL STAT 09/29/2024 9:56 PM AVIATION WARFARE SYSTEMS OPERATOR XR CHEST PA LATERAL 2 VIEWS Schedule Routine, Read Routine (OP Routine) 08/28/2024 3:44 PM AVIATION WARFARE SYSTEMS OPERATOR Acute bronchitis, unspecified organism XR CHEST 1 VIEW ED 08/11/2024 9:02 PM AVIATION WARFARE SYSTEMS OPERATOR DIFFERENTIAL AUTO Routine 08/11/2024 8:3 4 PM AVIATION WARFARE SYSTEMS OPERATOR CBC WITH AUTO DIFFERENTIAL Routine 08/11/2024 8:34 PM AVIATION WARFARE SYSTEMS OPERATOR EGFR STAT 08/11/2024 8:34 PM AVIATION WARFARE SYSTEMS OPERATOR PRO B-TYPE NATRIURETIC PEPTIDE STAT 08/11/2024 8:34 PM AVIATION WARFARE SYSTEMS OPERATOR COMPREHENSIVE METABOLIC PANEL STAT 08/11/2024 8:34 PM AVIATION WARFARE SYSTEMS OPERATOR ECG 12-LEAD Routine 08/11/2024 7:57 PM AVIATION WARFARE SYSTEMS OPERATOR XR CHEST 1 VIEW ED 08/10/2024 6:46 PM AVIATION WARFARE SYSTEMS OPERATOR URINALYSIS AND REFLEX TO MICROSCOPIC AND CULTURE Routine 08/10/2024 4:13 PM AVIATION WARFARE SYSTEMS OPERATOR EGFR STAT 08/10/2024 3:41 PM AVIATION WARFARE SYSTEMS OPERATOR DIFFERENTIAL AUTO STAT 08/10/2024 3:4 1 PM AVIATION WARFARE SYSTEMS OPERATOR CBC WITH AUTO DIFFERENTIAL STAT 08/10/2024 3:41 PM AVIATION WARFARE SYSTEMS OPERATOR CARBAMAZEPINE LEVEL, TOTAL STAT 08/10/2024 3:41 PM AVIATION WARFARE SYSTEMS OPERATOR COMPREHENSIVE METABOLIC PANEL STAT 08/10/2024 3:41 PM AVIATION WARFARE SYSTEMS OPERATOR SEPSIS LACTATE WITH REFLEX Routine 08/10/2024 2:54 PM AVIATION WARFARE SYSTEMS OPERATOR ECG 12-LEAD STAT 08/08/2024 4:28 PM AVIATION WARFARE SYSTEMS OPERATOR EGFR STAT 08/08/2024 3:26 AM AVIATION WARFARE SYSTEMS OPERATOR DIFFERENTIAL AUTO STAT 08/08/2024 3:2 6 AM AVIATION WARFARE SYSTEMS OPERATOR TROPONIN T HIGH-SENSITIVITY SERIES (BASELINE, 2HR, 4HR, 6HR) STAT 08/08/2024 3:26 AM AVIATION WARFARE SYSTEMS OPERATOR COMPREHENSIVE METABOLIC PANEL STAT 08/08/2024 3:26 AM AVIATION WARFARE SYSTEMS OPERATOR CBC WITH AUTO DIFFERENTIAL STAT 08/08/2024 3:26 AM AVIATION WARFARE SYSTEMS OPERATOR XR CHEST PA LATERAL 2 VIEWS ED 08/07/2024 11:43 PM AVIATION WARFARE SYSTEMS OPERATOR ECG 12-LEAD Routine 08/07/2024 10:54 PM AVIATION WARFARE SYSTEMS OPERATOR CT CHEST PE W CONTRAST ED 08/03/2024 9:31 PM AVIATION WARFARE SYSTEMS OPERATOR INFLUENZA A/B, RSV, AND COVID-19 PCR Routine 08/03/2024 6:58 PM AVIATION WARFARE SYSTEMS OPERATOR EGFR STAT 08/03/2024 6:57 PM AVIATION WARFARE SYSTEMS OPERATOR DIFFERENTIAL AUTO STAT 08/03/2024 6:5 7 PM AVIATION WARFARE SYSTEMS OPERATOR TROPONIN T HIGH-SENSITIVITY SERIES (BASELINE, 2HR, 4HR, 6HR) STAT 08/03/2024 6:57 PM AVIATION WARFARE SYSTEMS OPERATOR CBC WITH AUTO DIFFERENTIAL STAT 08/03/2024 6:57 PM AVIATION WARFARE SYSTEMS OPERATOR COMPREHENSIVE METABOLIC PANEL STAT 08/03/2024 6:57 PM AVIATION WARFARE SYSTEMS OPERATOR ECG 12-LEAD STAT 08/03/2024 6:50 PM AVIATION WARFARE SYSTEMS OPERATOR EGFR STAT 07/26/2024 7:01 PM AVIATION WARFARE SYSTEMS OPERATOR DIFFERENTIAL AUTO STAT 07/26/2024 7:0 1 PM AVIATION WARFARE SYSTEMS OPERATOR COMPREHENSIVE METABOLIC PANEL STAT 07/26/2024 7:01 PM AVIATION WARFARE SYSTEMS OPERATOR CBC WITH AUTO DIFFERENTIAL STAT 07/26/2024 7:01 PM AVIATION WARFARE SYSTEMS OPERATOR ECG 12-LEAD STAT 07/19/2024 9:23 PM AVIATION WARFARE SYSTEMS OPERATOR HEMOGLOBIN A1C Routine 01/16/2024 10:50 AM CDT [...] Maintenance Results * eGFR (09/29/2024 9:56 PM AVIATION WARFARE SYSTEMS OPERATOR) eGFR >90 >=60 mL/min/1. 73 m2 Comment: [...] last reviewed 2021. Blood 09/29/2024 9:56 PM AVIATION WARFARE SYSTEMS OPERATOR 09/29/2024 9:57 PM AVIATION WARFARE SYSTEMS OPERATOR us Cristina Veras MD LAB BLOOD ORDERABLES Final Resul t [facility] [place] 1 [facility] Department [place] [address] * Differential, auto (09/29/2024 9:56 PM AVIATION WARFARE SYSTEMS OPERATOR) Neutrophil abs 3.2 1.5 - 6.5 K/cumm [...] revised on 2017. Blood 09/29/2024 9:56 PM AVIATION WARFARE SYSTEMS OPERATOR 09/29/2024 9:57 PM AVIATION WARFARE SYSTEMS OPERATOR us Cristina Veras MD LAB BLOOD ORDERABLES Final Resul t [facility] ([place]) [facility] [employer] [place] [address] * (ABNORMAL) CBC with auto differential (09/29/2024 9:56 PM AVIATION WARFARE SYSTEMS OPERATOR) Pathologist [facility] WBC 5.9 3.8 - 9.9 K/cumm Hgb [...] [facility] ([place]) Blood 09/29/2024 9:56 PM AVIATION WARFARE SYSTEMS OPERATOR 09/29/2024 9:57 PM AVIATION WARFARE SYSTEMS OPERATOR us Cristina Veras MD LAB BLOOD ORDERABLES Final Resul t [facility] ([place] 1 [facility] [place] [address] * Comprehensive metabolic panel (09/29/2024 9:56 PM AVIATION WARFARE SYSTEMS OPERATOR) Pathologist [facility] Sodium 137 135 - 145 mmol/L Potassium, [...] Hemolyzed S pecimen Blood 09/29/2024 9:56 PM AVIATION WARFARE SYSTEMS OPERATOR 09/29/2024 9:57 PM AVIATION WARFARE SYSTEMS OPERATOR us Cristina Veras MD LAB BLOOD ORDERABLES Final Resul t [facility] ([place] 1 [facility] Department [place] [address] * XR Chest PA Lateral 2 Views (08/28/2024 3:44 PM AVIATION WARFARE SYSTEMS OPERATOR) Anatomical Region Laterality Modality Body, Chest N/A Computed Radiogr aphy 08/30/2024 11:0 7 PM AVIATION WARFARE SYSTEMS OPERATOR Narrative 08/30/2024 11:08 PM AVIATION WARFARE SYSTEMS OPERATOR EXAM DESCRIPTION: XR CHEST PA LATERAL 2 [...] Jin Barrett M.D. KT: AMALIA Report ID: [id number] Reading Location: [id number] Procedure Note Jin Barrett MD - 08/30/2024 [...] Jin Barrett M.D. KT: KT Report ID: [id number] Reading Location: [id number] us Sue Snow MD IMG XR PROCEDURES Final Resul t * XR Chest 1 Vw Portable (08/11/2024 9:02 PM AVIATION WARFARE SYSTEMS OPERATOR) Anatomical Region Laterality Modality Body, Chest N/A Computed Radiogr aphy 08/11/2024 9:35 PM AVIATION WARFARE SYSTEMS OPERATOR Narrative 08/11/2024 9:37 PM AVIATION WARFARE SYSTEMS OPERATOR EXAM DESCRIPTION: XR CHEST 1 VIEW REASON [...] Alisha Colmenares M.D. LC: JUNITO Report ID: [id number] Reading Location: [place] [address] Procedure Note Leslie Colmenares MD - 08/11/2024 [...] Alisha Colmenares M.D. LC: JUNITO Report ID: [id number] Reading Location: [place] [address] Chad David MD IMG XR PROCEDURES Final Resu lt * eGFR (08/11/2024 8:34 PM AVIATION WARFARE SYSTEMS OPERATOR) eGFR >90 >=60 mL/min/1. 73 m2 Comment: [...] last reviewed 2021. Blood 08/11/2024 8:34 PM AVIATION WARFARE SYSTEMS OPERATOR 08/11/2024 8:51 PM AVIATION WARFARE SYSTEMS OPERATOR Chad David MD LAB BLOOD ORDERABLES Final R esult [facility] [place]) 3 [employer] [facility] Department [place] [address] * Differential, auto (08/11/2024 8:34 PM AVIATION WARFARE SYSTEMS OPERATOR) Neutrophil abs 3.8 1.5 - 6.5 K/cumm [...] revised on 2017. Blood 08/11/2024 8:34 PM AVIATION WARFARE SYSTEMS OPERATOR 08/11/2024 10:15 PM AVIATION WARFARE SYSTEMS OPERATOR us Cristina Veras MD LAB BLOOD ORDERABLES Final Resul t [facility] ([place]) 1 [facility] Department [place] [address] * Pro B-type natriuretic peptide (08/11/2024 8:34 PM AVIATION WARFARE SYSTEMS OPERATOR) NT-proBNP <36 <=300 pg/mL Comment: Interpretive Comments: [...] Revised Date: 2018. Blood 08/11/2024 8:34 PM AVIATION WARFARE SYSTEMS OPERATOR 08/11/2024 8:51 PM AVIATION WARFARE SYSTEMS OPERATOR us Chad David MD LAB BLOOD ORDERABLES Final R esult [facility] ([place] 1 [facility] Department [place] [address] * (ABNORMAL) CBC with auto differential (08/11/2024 8:34 PM AVIATION WARFARE SYSTEMS OPERATOR) Pathologist [facility] WBC 6.6 3.8 - 9.9 K/cumm Hgb [...] [facility] ([place]) Blood 08/11/2024 8:34 PM AVIATION WARFARE SYSTEMS OPERATOR 08/11/2024 10:15 PM AVIATION WARFARE SYSTEMS OPERATOR us Cristina Veras MD LAB BLOOD ORDERABLES Final Resul t [facility] ([place] 1 [facility] Department [place] [address] * Comprehensive metabolic panel (08/11/2024 8:34 PM AVIATION WARFARE SYSTEMS OPERATOR) Pathologist [facility] Sodium 138 135 - 145 mmol/L Potassium, [...] [facility] ([place]) Blood 08/11/2024 8:34 PM AVIATION WARFARE SYSTEMS OPERATOR 08/11/2024 8:51 PM AVIATION WARFARE SYSTEMS OPERATOR us Chad David MD LAB BLOOD ORDERABLES Final R esult [facility] ([place] Department of Laboratories [place], [place] [id number] * ECG 12 lead (08/11/2024 7:57 PM AVIATION WARFARE SYSTEMS OPERATOR) 08/11/2024 7:57 PM AVIATION WARFARE SYSTEMS OPERATOR Narrative [facility] - 08/12/2024 6:59 AM AVIATION WARFARE SYSTEMS OPERATOR Vent Rate: 96 bpm RR Interval: 622 msec MI Interval: 183 msec QRS Duration: 86 msec QT Interval: 331 msec QTC Interval: 385 msec P-R-T [place]: 28 - 6 - 57 degrees IMPRESSION: SINUS RHYTHM NORMAL ECG NO CHANGE FROM PREVIOUS TRACING NOTED Electronically Signed By: Cruz Claudio MD Chad David MD ECG ORDERABLES Final Result [facility] * XR Chest 1 Vw Portable (08/10/2024 6:46 PM AVIATION WARFARE SYSTEMS OPERATOR) Anatomical Region Laterality Modality Body, Chest N/A Computed Radiogr aphy 08/10/2024 6:51 PM AVIATION WARFARE SYSTEMS OPERATOR Narrative 08/10/2024 6:52 PM AVIATION WARFARE SYSTEMS OPERATOR EXAM DESCRIPTION: XR CHEST 1 VIEW REASON [...] Clover Weinberg D.O. PS: PS Report ID: [id number] Reading Location: [id number] Procedure Note Clover Weinberg DO - 08/10/2024 [...] Clover Weinberg D.O. PS: PS Report ID: [id number] Reading Location: [place] [address] us Elif Killian MD IMG XR PROCEDURES F inal Result * Urinalysis reflex to microscopic and culture Urine (08/10/2024 4:13 PM AVIATION WARFARE SYSTEMS OPERATOR) Color, ur Yellow Yellow Clarity, ur Clear [...] tendency for uric acid stone formation. Source: [place] [employer] Current Interpretive Data was last revised on [...] UA and culture not met. [facility]) Urine 08/10/2024 4:1 3 PM AVIATION WARFARE SYSTEMS OPERATOR 08/10/2024 4:15 PM AVIATION WARFARE SYSTEMS OPERATOR Diane DOTSON LAB MICROBIOLOGY - GENERAL ORDE RABLES Final Result [facility] ([place] 1 [facility] [place] [address] * eGFR (08/10/2024 3:41 PM AVIATION WARFARE SYSTEMS OPERATOR) eGFR >90 >=60 mL/min/1. 73 m2 Comment: [...] last reviewed 2021. Blood 08/10/2024 3:41 PM AVIATION WARFARE SYSTEMS OPERATOR 08/10/2024 3:43 PM AVIATION WARFARE SYSTEMS OPERATOR Diane DOTSON LAB BLOOD ORDERABLES Final Resu lt [facility] ([place]) 1 [facility] Department [place] [address] * Differential, auto (08/10/2024 3:41 PM AVIATION WARFARE SYSTEMS OPERATOR) Pathologist [facility] Neutrophil abs 4.4 1.5 - 6.5 K/cumm [...] revised on 2017. Blood 08/10/2024 3:41 PM AVIATION WARFARE SYSTEMS OPERATOR 08/10/2024 3:43 PM AVIATION WARFARE SYSTEMS OPERATOR Diane DOTSON LAB BLOOD ORDERABLES Final Resu lt [facility] ([place] 1 [facility] [place] [address] * (ABNORMAL) CBC with auto differential (08/10/2024 3:41 PM AVIATION WARFARE SYSTEMS OPERATOR) [facility] WBC 6.8 3.8 - 9.9 K/cumm Hgb [...] [facility] ([place]) Blood 08/10/2024 3:41 PM AVIATION WARFARE SYSTEMS OPERATOR 08/10/2024 3:43 PM AVIATION WARFARE SYSTEMS OPERATOR Diane DOTSON LAB BLOOD ORDERABLES Final Resu lt [facility] ([place] 1 [facility] [place] [address] * Carbamazepine level, total (08/10/2024 3:41 PM AVIATION WARFARE SYSTEMS OPERATOR) Carbamazepine 4.6 4.0 - 12.0 mcg/mL Comment: Interpretive Data Therapeutic or Toxic effect of anticonvulsant drugs may occur at different concentrations in different patients and the correlation between dose and clinical effect must be evaluated individually. Current interpretive data was last revised on 13. Testing performed by: [facility], [address] [facility], [place]., [address] Blood 08/10/2024 3:41 PM AVIATION WARFARE SYSTEMS OPERATOR 08/11/2024 9:52 AM AVIATION WARFARE SYSTEMS OPERATOR us Diane DOTSON LAB BLOOD ORDERABLES Final Resu lt [facility] ([place]) 1 [facility] Department [place] [address] * (ABNORMAL) Comprehensive metabolic panel (08/10/2024 3:41 PM AVIATION WARFARE SYSTEMS OPERATOR) Sodium 138 135 - 145 mmol/L Potassium, [...] Bilirubin, total <0.2 0.1 - 1.2 mg/dL [facility] ([place]) Protein, pl 6.6 6.5 - 8.5 g/dL [facility] ([place]) Albumin 4.0 3.5 - 5.0 g/dL [facility] ([place] Alk phos 113 40 - 130 Units/L [facility] ([place]) ALT 11 7 - 45 Units/L [facility] AST 12 10 - 45 Units/L [facility] ([place]) Blood 08/10/2024 3:41 PM AVIATION WARFARE SYSTEMS OPERATOR 08/10/2024 3:43 PM AVIATION WARFARE SYSTEMS OPERATOR Diane DOTSON LAB BLOOD ORDERABLES Final Resu lt [facility] ([place] 1 [facility] [place] [address] * Sepsis Lactate w/ Reflex (08/10/2024 2:54 PM AVIATION WARFARE SYSTEMS OPERATOR) Sepsis Lactate 1.1 0.7 - 2.0 mmol/L Blood 08/10/2024 2:54 PM AVIATION WARFARE SYSTEMS OPERATOR 08/10/2024 2:58 PM AVIATION WARFARE SYSTEMS OPERATOR Diane DOTSON LAB BLOOD ORDERABLES Final Resu lt [facility] ([place] [address] [facility] [place] [address] * ECG 12 lead (08/08/2024 4:28 PM AVIATION WARFARE SYSTEMS OPERATOR) 08/08/2024 4:28 PM AVIATION WARFARE SYSTEMS OPERATOR Narrative [facility] - 08/09/2024 7:40 AM AVIATION WARFARE SYSTEMS OPERATOR Vent Rate: 91 bpm RR Interval: 653 msec MI Interval: 157 msec QRS Duration: 89 msec QT Interval: 330 msec QTC Interval: 379 msec P-R-T [place]: 63 - 21 - 48 degrees IMPRESSION: SINUS RHYTHM NORMAL ECG Electronically Signed By: Brennen Birmingham MD, FACC us Maryann Myers PA ECG ORDERABLES Final Result [facility] [facility] * Troponin T high-sensitivity series (baseline, 2hr, 4hr, 6hr) (08/08/2024 3:26 AM AVIATION WARFARE SYSTEMS OPERATOR) Trop T hs <6 <=14 ng/L Comment: Interpretive Data For further hscTnT resources including the diagnostic algorithm and an aid in interpretation, copy and paste this link: https://nrl.testcatalog.org/show/hsTrop Current Interpretive Data last revised 2020. Blood 08/08/2024 3:26 AM AVIATION WARFARE SYSTEMS OPERATOR 08/08/2024 3:30 AM AVIATION WARFARE SYSTEMS OPERATOR us Cristóbal Hurd MD LAB BLOOD ORDERABLES Final Result NARA BENÍTEZ [address] Department [place] [address] * eGFR (08/08/2024 3:26 AM AVIATION WARFARE SYSTEMS OPERATOR) eGFR >90 >=60 mL/min/1. 73 m2 Comment: [...] last reviewed 2021. Blood 08/08/2024 3:26 AM AVIATION WARFARE SYSTEMS OPERATOR 08/08/2024 3:30 AM AVIATION WARFARE SYSTEMS OPERATOR us Cristóbal Hurd MD LAB BLOOD ORDERABLES Final Result NARA BENÍTEZ ([place]) 1 [facility] Department [place] [address] * Differential, auto (08/08/2024 3:26 AM AVIATION WARFARE SYSTEMS OPERATOR) Neutrophil abs 3.7 1.5 - 6.5 K/cumm Imm gran abs 0.0 0.0 - 0.1 K/cumm [facility] ([place]) Lymphocyte abs 2.2 0.8 - 3.3 K/cumm [facility] ([place]) Monocyte abs 0.4 0.2 - 0.8 K/cumm [facility] ([place]) Eosinophil abs 0.2 0.0 - 0.5 K/cumm [...] revised on 2017. Blood 08/08/2024 3:26 AM AVIATION WARFARE SYSTEMS OPERATOR 08/08/2024 3:30 AM AVIATION WARFARE SYSTEMS OPERATOR us Cristóbal Hurd MD LAB BLOOD ORDERABLES Final Result [facility] ([place]) 1 [facility] Department [place] [address] * (ABNORMAL) CBC with auto differential (08/08/2024 3:26 AM AVIATION WARFARE SYSTEMS OPERATOR) WBC 6.5 3.8 - 9.9 K/cumm Hgb [...] [facility] ([place]) Blood 08/08/2024 3:26 AM AVIATION WARFARE SYSTEMS OPERATOR 08/08/2024 3:30 AM AVIATION WARFARE SYSTEMS OPERATOR us Cristóbal Hurd MD LAB BLOOD ORDERABLES Final Result NARA BENÍTEZ ([place]) 1 [facility] Department [place] [address] * Comprehensive metabolic panel (08/08/2024 3:26 AM AVIATION WARFARE SYSTEMS OPERATOR) Sodium 135 135 - 145 mmol/L Potassium, [...] [facility] ([place]) Blood 08/08/2024 3:26 AM AVIATION WARFARE SYSTEMS OPERATOR 08/08/2024 3:30 AM AVIATION WARFARE SYSTEMS OPERATOR Cristóbal Hurd MD LAB BLOOD ORDERABLES Final Result [facility] [place] 1 [facility] Department [place] [address] * XR Chest PA Lateral 2 Views (08/07/2024 11:43 PM AVIATION WARFARE SYSTEMS OPERATOR) Anatomical Region Laterality Modality Body, Chest N/A Computed Radiogr aphy 08/07/2024 11:4 7 PM AVIATION WARFARE SYSTEMS OPERATOR Narrative 08/07/2024 11:48 PM AVIATION WARFARE SYSTEMS OPERATOR EXAM DESCRIPTION: XR CHEST PA LATERAL 2 [...] Ja Martínez M.D. AM: AM Report ID: [id number] Reading Location: [id number] Procedure Note Ja Martínez MD - 08/07/2024 [...] Ja Martínez M.D. AM: AM Report ID: [id number] Reading Location: [place] [address] Cristóbal Hurd MD IMG XR PROCEDURES Final Res ult * ECG 12 lead (08/07/2024 10:54 PM AVIATION WARFARE SYSTEMS OPERATOR) 08/07/2024 10:5 4 PM AVIATION WARFARE SYSTEMS OPERATOR Narrative [facility] - 08/08/2024 2:32 PM AVIATION WARFARE SYSTEMS OPERATOR Vent Rate: 122 bpm RR Interval: 490 msec MI Interval: 163 msec QRS Duration: 84 msec QT Interval: 291 msec QTC Interval: 363 msec P-R-T [place]: 69 - 32 - 47 degrees IMPRESSION: SINUS TACHYCARDIA POSSIBLE ANTERIOR MYOCARDIAL INFARCTION , PROBABLY OLD [30 ms Q WAVE IN V3/V4, OR R < 0.2 mV IN V4] ABNORMAL RHYTHM ECG NO CHANGE FROM PREVIOUS TRACING NOTED Electronically Signed By: Cruz Claudio MD Cristóbal Hurd MD ECG ORDERABLES Final Resul t [facility] [employer] [facility] * CT Chest PE (CTA) W Contrast (08/03/2024 9:31 PM AVIATION WARFARE SYSTEMS OPERATOR) Anatomical Region Laterality Modality Body N/A Computed Tomogra phy 08/03/2024 9:54 PM AVIATION WARFARE SYSTEMS OPERATOR Narrative 08/03/2024 9:57 PM AVIATION WARFARE SYSTEMS OPERATOR EXAM DESCRIPTION: CT CHEST PE (CTA) W [...] Santi Castrejon M.D. AR: CYN Report ID: [id number] Reading Location: [place] [address] Procedure Note Santi Castrejon MD - 08/03/2024 [...] Santi Castrejon M.D. AR: CYN Report ID: [id number] Reading Location: [place] [address] Tiffanie Ortega ASSOCIATE PROFESSOR COMPUTER SCIENCE IMG CT PROCEDURES Fi nal Result * (ABNORMAL) Influenza A/B, RSV, and COVID-19 PCR Nasopharyngeal (08/03/2024 6:58 PM AVIATION WARFARE SYSTEMS OPERATOR) COVID-19 RNA Positive(A) Negative Influenza A RNA Negative Negative [facility] ([place]) Influenza B RNA Negative Negative [facility] ([place]) RSV RNA Negative Negative [facility] ([place]) Comment: Interpretive data: Testing performed by [facility]. This test is performed using the Epoch Xpert Xpress CoV-2/Flu/RSV plus assay. This is a multiplex, real- time reverse transcriptase PCR assay intended for the qualitative detection of nucleic acid from SARS-CoV-2, influenza A, influenza B, and respiratory syncytial virus. This assay has been cleared by the [place] Food and Drug administration. The performance characteristics have been verified by the [facility]. Results must be considered in the clinical context, and a negative result does not rule out infection. Interpretive Data last revised 2023 Nasopharyngeal 08/03/2024 6: 58 PM AVIATION WARFARE SYSTEMS OPERATOR 08/03/2024 7:02 PM AVIATION WARFARE SYSTEMS OPERATOR Narrative [facility] ([place]) - 08/03/2024 7:44 PM AVIATION WARFARE SYSTEMS OPERATOR Is the Patient experiencing symptoms consistent with COVID?->Yes Elif Killian MD LAB MICROBIOLOGY - GENERAL ORDERABLES Final Result [place] 1 [facility] [place] [address] * Troponin T high-sensitivity series (baseline, 2hr, 4hr, 6hr) (08/03/2024 6:57 PM AVIATION WARFARE SYSTEMS OPERATOR) Trop T hs <6 <=14 ng/L Comment: Interpretive Data For further hscTnT resources including the diagnostic algorithm and an aid in interpretation, copy and paste this link: https://nrl.testcatalog.org/show/hsTrop Current Interpretive Data last revised 2020. Blood 08/03/2024 6:57 PM AVIATION WARFARE SYSTEMS OPERATOR 08/03/2024 7:02 PM AVIATION WARFARE SYSTEMS OPERATOR Elif Killian MD LAB BLOOD ORDERABLE S Final Result Performing Organization Address City/[facility]/ZIP Co de Phone Number [place] 1 [facility] [place] [address] * eGFR (08/03/2024 6:57 PM AVIATION WARFARE SYSTEMS OPERATOR) eGFR >90 >=60 mL/min/1. 73 m2 Comment: [...] last reviewed 2021. Blood 08/03/2024 6:57 PM AVIATION WARFARE SYSTEMS OPERATOR 08/03/2024 7:02 PM AVIATION WARFARE SYSTEMS OPERATOR us Elif Killian MD LAB BLOOD ORDERABLE S Final Result [facility] ([place]) 1 [facility] Department [place] [address] * Differential, auto (08/03/2024 6:57 PM AVIATION WARFARE SYSTEMS OPERATOR) Neutrophil abs 2.3 1.5 - 6.5 K/cumm [...] revised on 2017. Blood 08/03/2024 6:57 PM AVIATION WARFARE SYSTEMS OPERATOR 08/03/2024 7:02 PM AVIATION WARFARE SYSTEMS OPERATOR us Elif Killian MD LAB BLOOD ORDERABLE S Final Result [facility] ([place]) 1 [facility] Department [place] [address] * (ABNORMAL) CBC with auto differential (08/03/2024 6:57 PM AVIATION WARFARE SYSTEMS OPERATOR) WBC 4.5 3.8 - 9.9 K/cumm Hgb [...] [facility] ([place]) Blood 08/03/2024 6:57 PM AVIATION WARFARE SYSTEMS OPERATOR 08/03/2024 7:02 PM AVIATION WARFARE SYSTEMS OPERATOR us Elif Killian MD LAB BLOOD ORDERABLE S Final Result [facility] ([place]) 1 [facility] Department [place] [address] * (ABNORMAL) Comprehensive metabolic panel (08/03/2024 6:57 PM AVIATION WARFARE SYSTEMS OPERATOR) Sodium 137 135 - 145 mmol/L Potassium, [...] [facility] ([place]) Blood 08/03/2024 6:57 PM AVIATION WARFARE SYSTEMS OPERATOR 08/03/2024 7:02 PM AVIATION WARFARE SYSTEMS OPERATOR Elif Killian MD LAB BLOOD ORDERABLE S Final Result Performing Organization Address City/[facility] Co de Phone Number [facility] ([place]) 1 [facility] Department [place] [address] * ECG 12 lead (08/03/2024 6:50 PM AVIATION WARFARE SYSTEMS OPERATOR) 08/03/2024 6:50 PM AVIATION WARFARE SYSTEMS OPERATOR Narrative [facility] - 08/04/2024 7:51 AM AVIATION WARFARE SYSTEMS OPERATOR Vent Rate: 104 bpm RR Interval: 574 msec MI Interval: 161 msec QRS Duration: 89 msec QT Interval: 314 msec QTC Interval: 374 msec P-R-T [place]: 54 - 55 - 50 degrees IMPRESSION: SINUS TACHYCARDIA LOW QRS VOLTAGE IN PRECORDIAL LEADS [QRS DEFLECTION < 1.0 mV IN CHEST LEADS] ABNORMAL RHYTHM ECG NO CHANGE FROM PREVIOUS TRACING NOTED Electronically Signed By: Cruz Claudio MD Elif Killian MD ECG ORDERABLES Fin al Result Performing Organization Address City/[facility]/ZIP Co de Phone Number [facility] [employer] [facility] * eGFR (07/26/2024 7:01 PM AVIATION WARFARE SYSTEMS OPERATOR) eGFR >90 >=60 mL/min/1. 73 m2 Comment: [...] last reviewed 2021. Blood 07/26/2024 7:01 PM AVIATION WARFARE SYSTEMS OPERATOR 07/26/2024 7:13 PM AVIATION WARFARE SYSTEMS OPERATOR us Joseph Ford MD LAB BLOOD ORDERABLES Final Res ult [facility] ([place] 1 [facility] Department [place] [address] * Differential, auto (07/26/2024 7:01 PM AVIATION WARFARE SYSTEMS OPERATOR) Neutrophil abs 3.5 1.5 - 6.5 K/cumm [...] revised on 2017. Blood 07/26/2024 7:01 PM AVIATION WARFARE SYSTEMS OPERATOR 07/26/2024 7:13 PM AVIATION WARFARE SYSTEMS OPERATOR us Joseph Ford MD LAB BLOOD ORDERABLES Final Res ult [facility] ([place]) 1 [facility] Department [place] [address] * (ABNORMAL) CBC with auto differential (07/26/2024 7:01 PM AVIATION WARFARE SYSTEMS OPERATOR) WBC 5.9 3.8 - 9.9 K/cumm Hgb [...] [facility] ([place]) Blood 07/26/2024 7:01 PM AVIATION WARFARE SYSTEMS OPERATOR 07/26/2024 7:13 PM AVIATION WARFARE SYSTEMS OPERATOR us Joseph Ford MD LAB BLOOD ORDERABLES Final Res ult [facility] ([place]) 1 [facility] Department [place] [address] * Comprehensive metabolic panel (07/26/2024 7:01 PM AVIATION WARFARE SYSTEMS OPERATOR) Sodium 137 135 - 145 mmol/L Potassium, pl 4.0 3.3 - 4.9 mmol/L [facility] ([place]) Chloride 104 97 - 110 mmol/L [facility] ([place]) CO2 22 22 - 32 mmol/L [facility] ([place]) Anion gap 11 2 - 15 mmol/L [facility] ([place]) BUN 16 6 - 25 mg/dL [facility] Creatinine 0.73 0.60 - 1.10 [...] 2022. Calcium 9.1 8.5 - 10.3 mg/dL [facility]) Bilirubin, total <0.2 0.1 - 1.2 mg/dL [facility] ([place]) Protein, pl 6.7 6.5 - 8.5 g/dL [facility] ([place]) Albumin 4.2 3.5 - 5.0 g/dL [facility] ([place]) Alk phos 118 40 - 130 Units/L [facility] ([place]) ALT 10 7 - 45 Units/L [facility] ([place]) AST 13 10 - 45 Units/L [facility] ([place]) Blood 07/26/2024 7:01 PM AVIATION WARFARE SYSTEMS OPERATOR 07/26/2024 7:13 PM AVIATION WARFARE SYSTEMS OPERATOR us Joseph Ford MD LAB BLOOD ORDERABLES Final Res ult Performing Organization Address City/[facility] Co de Phone Number [facility] ([place]) 1 [facility] Department [place] [address] * ECG 12 lead (07/19/2024 9:23 PM AVIATION WARFARE SYSTEMS OPERATOR) 07/19/2024 9:23 PM AVIATION WARFARE SYSTEMS OPERATOR Narrative [facility] - 07/20/2024 4:33 PM AVIATION WARFARE SYSTEMS OPERATOR Vent Rate: 83 bpm RR Interval: 715 msec MI Interval: 152 msec QRS Duration: 88 msec QT Interval: 325 msec QTC Interval: 365 msec P-R-T [place]: 75 - 61 - 77 degrees IMPRESSION: SINUS RHYTHM NORMAL ECG NO CHANGE FROM PREVIOUS TRACING NOTED Electronically Signed By: Cruz Claudio MD us Tom Maier MD ECG ORDERABLES Final Resul t Performing Organization Address City/[facility]/ZIP Co de Phone Number [facility] [employer] [facility] * Albumin Creatinine Ratio, Urine (01/16/2024 10:50 AM CDT) Albumin Ur <12.0 mg/L Comment: Interpretive Data No reference range established. Current interpretive data was last revised 2018. Creatinine Ur 143.7 mg/dL [facility] Comment: Interpretive Data No reference range established. Current interpretive data was last revised 2018. Albumin Creatinine Ratio, Ur <8 1 - 29 mg/g NARA Urine 01/16/2024 10:5 0 AM CDT 01/16/2024 7:12 PM CDT Tahira Kelly NP LAB URINE ORDERABLES Final Re sult Performing Organization Address [facility] de Phone Number [facility] [address] [place] [address] * Hemoglobin A1c (01/16/2024 10:50 AM CDT) Hgb A1C 5.3 4.0 - 5.6 % Estimated Average Glucose 105 mg/dL NARA Comment: The ADA recommends reporting an estimated Average Glucose (eAG) with all Hemoglobin A1c results using the equation derived from a study of 507 normal and diabetic adults. Minority populations were underrepresented and children were not included. (Diabetes Care 31:5527-7688, 2008). The eAG is not equivalent to a fasting glucose. Blood 01/16/2024 10:5 0 AM CDT 01/16/2024 7:12 PM CDT Tahira Kelly NP LAB BLOOD ORDERABLES Final Re sult Performing Organization Address [facility] de Phone Number [facility] [address] Department [place] [address] * (ABNORMAL) Lipid panel (01/16/2024 10:50 AM [...] 01/16/2024 7:12 PM CDT us Tahira Kelly ASSOCIATE PROFESSOR COMPUTER SCIENCE LAB BLOOD ORDERABLES Final Re sult [facility] [address] Department [place] [address] * SCREENING MAMMOGRAM BILATERAL W CHICA (10/31/2023 [...] suspicious change on mammogram. us Tahira Kelly ASSOCIATE PROFESSOR COMPUTER SCIENCE IMG MAMMO PROCEDURES Final Re sult * [...] [facility] HISTORICAL RESULTS Comment: Siemens CentaurXP using AVRIL (chemiluminescent immunoassay) technology. NONREACTIVE: IgM antibodies to Hepatitis B Surface antibody not detected. REACTIVE: IgM antibodies to Hepatitis B Surface antibody detected. Hep B core IgM NONREACT NONREACTIVE 4 7:07 PM CDT [facility] HISTORICAL RESULTS Comment: Siemens CentaurXP using AVRIL [...] [facility] HISTORICAL RESULTS Comment: Siemens CentaurXP using AVRIL (chemiluminescent immunoassay) technology. NONREACTIVE: IgM antibodies to Hepatitis A not detected. This does not exclude possibility of exposure to Hepatitis A or early acute infection. EQUIVOCAL:IgM antibodies to Hepatitis A may or may not be present. Suggest recollection and retest. REACTIVE: Antibodies to Hepatitis A detected. Hep C Ab NONREACT NONREACTIVE 05/16/2014 7:07 PM CDT [facility] [facility] HISTORICAL RESULTS Comment: Siemens CentaurXP using AVRIL [...] MICROBIOLOGY - GENERAL O RDERABLES Final Result [facility] [employer] HISTORICAL RESULTS from Last 3 Months or Most Recently Relevant to Health Maintenance Additional Health Concerns Infection Onset Date Last Indicated COVID: Recovered Comment:Added based on recent COVID infection. 08/13/2024 025 Insurance Advance Directives For more information, please contact: [phone] Documents on File Type Date Recorded Patient Bread Wrapper Operator Expl anation ADVANCE DIRECTIVE 04/29/2023 4:00 PM DNR ADVANCE DIRECTIVE 04/26/2023 4:27 PM POWER OF BORE MINER OPERATOR-MEDICAL Power of Goldsmith Apprentice 04/24/2023 8:00 AM * Full Code (Latest [...] 12:32 PM 04/26/2023 12:17 AM Care Teams Metal Framer Relationship Specialty Start Date End Date Eli Abbott MD [address] [place] [address] PCP - General Obstetrics and Gynecology 10/07/24 [place] [address] [address] [address] Consulting Physician Gastroenterology 12/22/22 [place] [address] [address] [facility] [address] [place] [address] Consulting Physician Neurosurgery 2/12/24 Dalton Fragoso MD [address] [place] [address] Referring Physician Psychiatry & Neurology 09/16/23
--- OUTSIDE RECORDS SUMMARY | 2024-10-13 01:55 | XMS_ITS | Encounter Summary ---
Author Organization [facility] Healthcare Address [address] [place] [address] Care Team Providers Care Camp Manager Name Role Phone Denver Veliz MD Unavailable Anna Cassidy NP Primary Care Provider Eriberto Skelton MD Unavailable [phone] Albert Jordan MD Unavailable [phone] Fanta Barraza DNP Unavailable [phone] Dalton Fragoso MD Unavailable [phone] Sue Snow MD Primary Care Provider [phone] Eli Abbott MD Primary Care Provider Reason for Visit * Reason Onset Date Comments Medical Question/Miscellaneous 10/24/2023 Call Back 10/24/2023 Encounter Details Date Type Department Care Team (Late st Contact Info) Description 10/24/2023 Telephone [facility] Primary Care at [place] [address] [facility] [address] [place] [address] Anna Cassidy RECORDAK OPERATOR [address] [place] [address] [place] [phone] Medical Question/Miscellaneous; Call Back Social History Tobacco [...] often do you attend chur ch or cheondoism services? Never 04/24/2023 Do you belong to any clubs o r organizations such as scientology groups, unions, fraternal or athletic groups, or [...] place to sleep or slept in a mcc (including now)? No 04/24/2023 Housing Stability Vital [...] on file Legal Sex Female 12:47 AM SITE FOREMAN Gender Identity Not on file Sexual Orientation [...] the pharmacist and was told that the RECORDAK OPERATOR or PCP has to order a needle syringe in order for the patient to administer the medication. Patient is requesting the smallest needle available. Does message need to be routed? Yes-Action Needed documented in this encounter Plan of Treatment Upcoming Encounters Date Type Department Care Team (Late st Contact Info) Description 11/17/2024 8:00 AM CDT Hospital Encounter [facility] [address] [place] [address] Timothy White MD [address] [facility] [address] [place] [address] 11/17/2024 8:00 AM CDT - 11/17/2024 8:30 AM CDT Surgery [address] [address] Timothy White MD 4 [facility] [address] [place] [address] COLONOSCOPY Scheduled Procedures Name Priority Associated Diagnoses [...] COVID: Suspected 08/03/2024 08/03/2024 08/03/2024 7:44 PM SITE FOREMAN COVID19 08/03/2024 08/03/2024 08/13/2024 3:05 AM SITE FOREMAN COVID: Recovered Comment:Added based on recent COVID infection. 08/13/2024 08/13/2024 documented as of this encounter Care Teams Camp Manager Relationship Specialty Start Date End Date Anna Cassidy NP [address] [place] [address] PCP - General Nca Certified Concierge 09/16/23 03/04/24 Sue Snow MD [address] [place], [place] [phone] PCP - General Internal Medicine 03/05/24 10/06/24 Eli Abbott MD [address] [place] [address] PCP - General Obstetrics and Gynecology 10/07/24 [place] [address] [place] [address] Consulting Physician Gastroenterology 12/22/22 Eriberto Skelton MD [address] [place] [address] Consulting Physician Neurosurgery 09/16/23 Albert Jordan MD [address] [place] [address] Consulting Physician Cardiology 09/16/23 03/17/24 Fanta Barraza DNP [address] [place] [address] Nurse Practitioner Neurology 09/16/23 03/17/24 Dalton Fragoso MD [address] [place] [address] Referring Physician Psychiatry & Neurology 09/16/23 documented as of this encounter
--- OUTSIDE RECORDS SUMMARY | 2024-10-13 01:55 | XMS_ITS | Encounter Summary ---
Author Organization [employer] Address [address] [place] [address] Care Team Providers Care Supervisor Food Checkers And Cashiers Name Role Phone Brett Chávez MD Primary [...] on file Legal Sex Female 2:47 AM PHYSICAL THERAPY ATTENDANT Gender Identity Not on file Sexual Orientation Not on file Occupation Industry Job Start Date Job End Date Not on file Not on file Not on file Not on file documented as of this encounter Plan of Treatment Not on file documented as of this encounter Visit Diagnoses Not on filedocumented in this encounter Care Teams Supervisor Food Checkers And Cashiers Relationship Specialty Start Date End Date Brett Chávez MD [address] [place] [phone] PCP - General Family Practice 04/02/20 documented as of this encounter
--- OUTSIDE RECORDS SUMMARY | 2024-10-13 01:55 | XMS_ITS | Encounter Summary ---
Author Organization [employer] Address [address] [place] [address] Care Team Providers Care Maintenance Leader Name Role Phone Brett Chávez MD Primary Care Provider + Encounter Details Date Type Department Care Team (Late st Contact Info) Description 06/07/2003 Outpatient Historical [facility] Rodo Ann MD [address] [place] [address] [place] [address] Er, Authorized P NO ADDRESS ON FILE DEPRESSIVE DISORDER NEC (Primary Dx) Social History Tobacco Use Types Packs/Day Years Used Date Smoking Tobacco: Never Assessed Comments Unknown Sex and Gender Information Value Date Recorded Sex Assigned at Not on file Legal Sex Female 2:47 AM CAR RESTORER Gender Identity Not on file Sexual Orientation [...] documented as of this encounter Care Teams Maintenance Leader Relationship Specialty Start Date End Date Brett Chávez MD [address] [phone] PCP - General Family Practice 04/02/20 documented as of this encounter
--- OUTSIDE RECORDS SUMMARY | 2024-10-13 01:55 | XMS_ITS | Encounter Summary ---
Author Organization [employer] Address [address] [place] [address] Care Team Providers Care Director Advanced Name Role Phone Brett Chávez MD Primary [...] on file Legal Sex Female 2:47 AM ROUSTABOUT SUPERVISOR Gender Identity Not on file Sexual Orientation [...] documented as of this encounter Care Teams Director Advanced Relationship Specialty Start Date End Date Brett Chávez MD [address] [place] [phone] PCP - General Family Practice 04/02/20 documented as of this encounter
[2024-10-13 01:56] LABS: Basophils Percent Auto 0.5 % (0.2-1.2); Eosinophils Absolute Auto 0.2 K/mm3 (0-0.3); Eosinophils Percent Auto 3.7 % (0-4.4); Hematocrit 32.4 % (37.0-47.0); Immature Granulocyte Absolute 0.01 K/mm3 (0.00-0.031); Immature Granulocyte Percent A 0.2 % (0-0.5); Lymphocytes Absolute Auto 1.99 K/mm3 (0.9-3.2); Lymphocytes Percent Auto 32.4 % (18.3-44.2); Mean Corpuscular HGB Conc 30.9 g/dl (32-36); Mean Corpuscular Hemoglobin 24.2 pg (26-34); Mean Corpuscular Volume 78.5 fl (80-100); Mean Platelet Volume 9.9 fl (7.4-10.4); Monocytes Absolute Auto 0.5 K/mm3 (0.1-0.6); Monocytes Percent Auto 8.5 % (2.6-8.5); Neutrophils Absolute Auto 3.4 K/mm3 (1.3-6.7); Neutrophils Percent Auto 54.7 % (45.5-73.1); Platelet Count Result 341 k/mm3 (150-375); Red Blood Count 4.13 M/mm3 (4.2-5.4); Red Cell Distribution Width 19.8 % (11.5-14.5); White Blood Count 6.2 K/mm3 (4.5-10.0)
--- OUTSIDE RECORDS SUMMARY | 2024-10-13 01:56 | XMS_ITS | Encounter Summary ---
Author Organization [facility] Address [address] [place] [address] Phone Care Team Providers Care Back Stayer Name Role Phone Brtet Chávez MD Primary Care Provider [phone] Cedric Martinez MD Primary Care Provider [phone] Sue Snow MD Primary Care Provider [phone] Jn Polo PAC Unavailable [phone] Eli Abbott MD Primary Care Provider [phone] Reason for Visit * Reason Comments Medication Refill Encounter Details Date Type Department Care Team (Late st Contact Info) Description 12/18/2019 Refill [facility] #1 [place] [phone] Cruz Velasquez MD [address] [place] [address] Medication Refill Social History Tobacco [...] 10/13/2024 2:00 PM CDT Appointment [facility] MRI [address] [place] [address] nJ Polo, PAC [address] [place] [address] Discharge Disposition: Discharged to home or Selfcare documented as of this encounter Visit Diagnoses Not on filedocumented in this encounter Additional Health Concerns Infection Onset Date Last Indicated Resolved Time COVID - 19 08/01/2020 08/01/2020 08/05/2020 1:58 PM AUTOMATION QTP TESTER COVID - 19 08/17/2021 08/17/2021 08/20/2021 6:06 AM AUTOMATION QTP TESTER COVID - 19 Confirmed 08/17/2021 08/17/2021 022 12:16 AM AUTOMATION QTP TESTER COVID - 19 07/26/2022 09/17/2022 09/17/2022 8:04 AM AUTOMATION QTP TESTER COVID - 19 07/20/2024 07/20/2024 07/20/2024 9:02 PM AUTOMATION QTP TESTER documented as of this encounter Care Teams Back Stayer Relationship Specialty Start Date End Date Brett Chávez MD [address] [facility] [address] [place] [address] PCP - General Family Medicine 06/12/15 03/25/23 Cedric Martinez MD [address] [facility] [address] [place] [address] PCP - General Family Medicine 03/26/23 02/04/24 Sue Snow MD 2 [facility] [address] [place] [address] PCP - General Internal Medicine 02/05/24 09/02/24 Eli Abbott MD [address] [place] [address] PCP - General Family Medicine 09/03/24 Jn Polo PAC [address] [place] [address] Physician Guest Services Ambassador Physician Guest Services Ambassador 07/13/24 documented as of this encounter
--- OUTSIDE RECORDS SUMMARY | 2024-10-13 01:56 | XMS_ITS | Clinical Summary ---
Author Organization [facility] Address [address] [place] [address] Phone Care Team Providers Care Biofuels Engineering Manager Name Role Phone Brtet Chávez MD Primary Care Provider + Allergies [...] on file Legal Sex Female 2:47 AM DIRECTOR AIRPORT Gender Identity Not on file Sexual Orientation [...] 5.8(H) <5.7 % 04/04/2020 10:39 AM CDT [facility] EST. AVG GLUCOSE, A1C 120 mg/dL 04/04/2020 10:39 AM CDT [facility] Blood Venipuncture / Unknown 04/03/2020 11:02 PM CDT 04/03/2020 11:06 PM CDT Narrative [facility] - 04/04/2020 10:39 AM CDT HGB A1C INTERPRETATION NORMAL: <5.7% PRE-DIABETES: 5.7 - 6.4% DIABETES: 6.5% OR GREATER us Sol Solares NP CHEMISTRY ORDERABLES Final Resu lt [facility] CLIA# [id number] [address] [place] [address] from Last 3 Months or Most Recently Relevant to Health Maintenance Insurance [employer] [place] Advance Directives For more information, please contact: [phone] * Full Code (Latest Code Status on File) Date Activated Date Inactivated Comments 04/04/2020 5:25 AM 04/05/2020 1:27 AM * Full Code Date Activated Date Inactivated Comments 03/27/2013 2:24 PM 03/28/2013 7:44 PM * Full Code Date Activated Date Inactivated Comments 03/21/2013 4:36 AM 03/27/2013 2:24 PM Care Teams Biofuels Engineering Manager Relationship Specialty Start Date End Date Brett Chávez MD [address] [phone] PCP - General Family Practice 04/02/20
--- OUTSIDE RECORDS SUMMARY | 2024-10-13 01:56 | XMS_ITS | Clinical Summary ---
Author Organization [facility] Address [address] [place] [address] Phone Care Team Providers Care Geriatric Case Manager Name Role Phone MelaniJn PAC Unavailable [phone] Eli Abbott MD Primary Care Provider [phone] Allergies Active Allergy Reactions Criticality Noted Date [...] redness Sulfa Antibiotics Unknown 10/22/2015 Medications Multiple Vitamins-Machine Taper als (MULTIVITAMIN PO) Take 1 Tab by [...] Take 1 Tablet by mouth daily. Active Lawrence 3-6-9 Fatty Acids (OMEGA 3-6-9 COMPLEX PO) [...] - 10/11/2024 6:27 PM CDT Emergency [facility] Emergency [address] [place] [address] Arielle Galdamez MD Nausea and vomiting, unspecified vomiting type Discharge Disposition: Discharged to home or Selfcare 10/11/2024 Travel 10/09/2024 4:16 PM NUTRITIONIST - 10/09/2024 7:19 PM [facility] Emergency [facility] Emergency [address] [place] [address] Maame Ayala MD Upper GI bleeding Discharge Disposition: Discharged to home or Selfcare 10/09/2024 Travel 09/03/2024 10:00 AM NUTRITIONIST Office Visit [facility] [place] [address] [place] [address] Jn Polo, PAC Right shoulder pain, unspecified chronicity (Primary Dx) Discharge Disposition: Discharged to home or Selfcare 09/03/2024 Travel 08/25/2024 Travel 08/18/2024 Travel 08/09/2024 12:44 AM NUTRITIONIST - 08/09/2024 1:16 AM [facility] Emergency [facility] Emergency [address] [place] [address] Delaney Israel MD Pleurisy Discharge Disposition: Discharged to home or Selfcare 08/09/2024 Travel 08/06/2024 Telephone [facility] [address] [place] [phone] Ami Ibanez, PT Appointment (Same-day cancel (initial evaluation)) 07/20/2024 7:09 PM NUTRITIONIST - 07/20/2024 9:58 PM NUTRITIONIST Emergency [facility] Emergency [address] [place] [address] Adrian Yap MD Nonspecific chest pain Discharge [...] 10/13/2024 2:00 PM CDT Appointment [facility] MRI [address] [place] [address] Jn Polo, PAC [address] [facility] [address] [place] [address] Discharge Disposition: Discharged to home or Selfcare [...] CONTRAST Stat with Interpretation 10/09/2024 5:50 PM NUTRITIONIST PROTIME (PT) (PROTHROMBIN TIME) STAT 10/09/2024 5:13 PM NUTRITIONIST CBC WITH AUTO DIFFERENTIAL STAT 10/09/2024 2:26 PM NUTRITIONIST MAGNESIUM (MG) STAT 10/09/2024 2:26 PM NUTRITIONIST LIPASE STAT 10/09/2024 2:26 PM NUTRITIONIST CMP (COMPREHENSIVE METABOLIC PANEL) STAT 10/09/2024 2:26 PM NUTRITIONIST COMPLETE BLOOD COUNT (CBC) WITH DIFF STAT 10/09/2024 2:26 PM NUTRITIONIST URINALYSIS REFLEX IF INDICATED BY ABNORMAL RESULTS STAT 10/09/2024 2:09 PM NUTRITIONIST AEROSOL NEBULIZER-INITIAL STAT 07/20/2024 8:11 PM NUTRITIONIST XR CHEST SINGLE VIEW PORTABLE STAT 07/20/2024 8:08 PM NUTRITIONIST RSV,SARS-COV-2,INF LUENZA A&B BY PCR STAT 07/20/2024 8:02 PM NUTRITIONIST GOLD TOP TUBE STAT 07/20/2024 8:00 PM NUTRITIONIST BLUE TOP TUBE STAT 07/20/2024 8:00 PM NUTRITIONIST CBC WITH AUTO DIFFERENTIAL STAT 07/20/2024 8:00 PM NUTRITIONIST EXTRA TUBES STAT 07/20/2024 8:00 PM NUTRITIONIST TROPONIN I, HIGH SENSITIVITY (HSTRP) STAT 07/20/2024 8:00 PM NUTRITIONIST MAGNESIUM (MG) STAT 07/20/2024 8:00 PM NUTRITIONIST COMPLETE BLOOD COUNT (CBC) WITH DIFF STAT 07/20/2024 8:00 PM NUTRITIONIST CMP (COMPREHENSIVE METABOLIC PANEL) STAT 07/20/2024 8:00 PM NUTRITIONIST B-TYPE NATRIURETIC PEPTIDE (BNP) STAT 07/20/2024 8:00 PM NUTRITIONIST EKG 12 LEAD STAT 07/20/2024 7:13 PM NUTRITIONIST EKG SCAN 07/20/2024 12:00 AM NUTRITIONIST STOOL, OCCULT BLOOD, DIAGNOSTIC, VIA GUAIAC STAT 03/12/2024 5:19 PM CDT from Last 3 Months or Most Recently Relevant to Health Maintenance Results * (ABNORMAL) URINALYSIS REFLEX IF INDICATED BY ABNORMAL RESULTS (10/11/2024 4:51 PM CDT) Only the most recent of2 resultswithin the time period is included. SPECIFIC GRAVITY 1.020 1.003 - 1.030 10/11/2024 5:47 PM CDT [facility] URINE PH 6.0 5.0 - 9.0 10/11/2024 5:47 PM CDT [facility] WBC ESTERASE Negative Negative 10/11/2024 5:47 PM CDT [facility] NITRITE Negative Negative 10/11/2024 5:47 PM CDT [facility] PROTEIN, RANDOM URINE 30 mg/dL(A) Negative 10/11/2024 5:47 PM CDT [facility] URINE GLUCOSE, QUAL Negative Negative 10/11/2024 5:47 PM CDT [facility] URINE KETONES Negative Negative 10/11/2024 5:47 PM CDT [facility] UROBILINOGEN 1 mg/dL(A) Normal mg/dL 10/11/2024 5:47 PM CDT [facility] URINE BLOOD Negative Negative caitlin/ul 10/11/2024 5:47 PM CDT [facility] URINALYSIS COLOR Yellow 10/12/19 5:47 PM CDT [facility] URINALYSIS CLARITY Slightly Cloudy 10/11/2024 5:47 PM CDT [facility] WBC (Urine) 0-5 Negative, 0-5 /hpf 10/11/2024 5:47 PM CDT [facility] URINE RBC'S Negative Negative, 0-2 /hpf 10/11/2024 5:47 PM CDT [facility] EPITHELIAL CELLS Large amount squamous /lpf 10/11/2024 5:47 PM CDT [facility] BACTERIA, URINE Many(A) Negative /hpf 10/11/2024 5:47 PM CDT [facility] Urine URINE SPECIMEN OBTAINED BY CLEAN CATCH PROCEDURE / Unknown Non-Phlebotomy Collection / Unknown 10/11/2024 4:51 PM CDT 10/11/2024 5:02 PM CDT Arielle Galdamez MD URINE ORDERABLES Final Result [facility] [address] [place] [address] * (ABNORMAL) CBC with Auto Differential (10/11/2024 4:51 PM CDT) Only the most recent of3 resultswithin the time period is included. WBC 6.67 4.00 - 12.00 10(3)/mcL 10/11/2024 5:50 PM CDT [facility] RBC 4.53 3.80 - 5.30 10(6)/mcL 10/11/2024 5:50 PM CDT [facility] HEMOGLOBIN (HGB) 11.0(L) 12.0 - 15.8 g/dL 10/11/2024 5:50 PM CDT [facility] HEMATOCRIT (HCT) 35.3(L) 36.0 - 47.0 % 10/11/2024 5:50 PM CDT [facility] MCV 77.9(L) 82.0 - 96.0 fL 10/11/2024 5:50 PM CDT [facility] MCH 24.3(L) 26.0 - 34.0 pg 10/11/2024 5:50 PM CDT [facility] MCHC 31.2 31.0 - 36.0 g/dL 10/11/2024 5:50 PM CDT [facility] PLATELET COUNT 270 140 - 440 10(3)/mcL 10/11/2024 5:50 PM CDT [facility] RDW 19.5(H) 11.8 - 15.5 % 10/11/2024 5:50 PM CDT [facility] MPV 10.6 9.7 - 12.4 fL 10/11/2024 5:50 PM CDT [facility] NEUTROPHILS 62.8 47.0 - 73.0 % 10/11/2024 5:50 PM CDT [facility] LYMPHOCYTES 24.1 18.0 - 42.0 % 10/11/2024 5:50 PM CDT [facility] MONOCYTES 8.7 4.0 - 12.0 % 10/11/2024 5:50 PM CDT [facility] EOSINOPHILS 4.0 0.0 - 5.0 % 10/11/2024 5:50 PM CDT [facility] BASOPHILS 0.4 0.0 - 1.0 % 10/11/2024 5:50 PM CDT [facility] ABSOLUTE NEUTROPHILS 4.18 1.60 - 7.70 10(3)/mcL 10/11/2024 5:50 PM CDT [facility] ABSOLUTE LYMPHOCYTES 1.61 1.30 - 3.20 10(3)/mcL 10/11/2024 5:50 PM CDT [facility] ABSOLUTE MONOCYTES 0.58 0.20 - 1.00 10(3)/mcL 10/11/2024 5:50 PM CDT [facility] ABSOLUTE EOSINOPHIL 0.27 0.00 - 0.40 10(3)/mcL 10/11/2024 5:50 PM CDT [facility] ABSOLUTE BASOPHILS 0.03 0.00 - 0.10 10(3)/mcL 10/11/2024 5:50 PM CDT [facility] NRBC PER 100 WBC 0 10/12/19 5:50 PM CDT [facility] RESULTS ARE CONSISTENT WITH PERIPHERAL SMEAR REVIEW Yes 10/11/2024 5:50 PM CDT [facility] RBC MORPHOLOGY CONSISTENT WITH INDICES Yes 10/11/2024 5:50 PM CDT [facility] POIKILOCYTOSIS 1+ 10/11/2024 5:50 PM CDT [facility] OVALOCYTES Present 10/11/2024 5:50 PM CDT [facility] POLYCHROMASIA 1+ 10/11/2024 5:50 PM CDT [facility] Blood Venipuncture / Unknown 10/11/2024 4:51 PM CDT 10/11/2024 5:02 PM CDT us Arielle Galdamez MD HEMATOLOGY ORDERABLES Final R esult [facility] [address] [place] [address] * Lipase [id number] (10/11/2024 4:51 PM CDT) Only the most recent of2 resultswithin the time period is included. LIPASE 19 8 - 78 U/L 10/11/2024 5:47 PM CDT [facility] Blood Venipuncture / Unknown 10/11/2024 4:51 PM CDT 10/11/2024 5:02 PM CDT Arielle Galdamez MD CHEMISTRY ORDERABLES Final Re sult [facility] [address] [place] [address] * (ABNORMAL) Comprehensive Metabolic Panel (Cmp) [id number] (10/11/2024 4:51 PM CDT) Only the most recent of3 resultswithin the time period is included. SODIUM 141 136 - 145 mmol/L 10/11/2024 5:47 PM CDT [facility] POTASSIUM 4.7 3.5 - 5.1 mmol/L 10/11/2024 5:47 PM CDT [facility] CHLORIDE 110(H) 98 - 107 mmol/L 10/11/2024 5:47 PM CDT [facility] CO2, VENOUS 19(L) 22 - 30 mmol/L 10/11/2024 5:47 PM CDT [facility] ANION GAP 16.7 <18.0 mmol/L 10/11/2024 5:47 PM CDT [facility] GLUCOSE 88 70 - 99 mg/dL 10/11/2024 5:47 PM CDT [facility] BUN 13 5 - 18 mg/dL 10/11/2024 5:47 PM CDT [facility] CREATININE, BLOOD 0.69 0.60 - 1.00 mg/dL 10/11/2024 5:47 PM CDT [facility] BUN/CREATININE RATIO 19 12 - 20 ratio 10/11/2024 5:47 PM CDT [facility] TOTAL PROTEIN 6.9 6.0 - 8.0 g/dL 10/11/2024 5:47 PM CDT [facility] ALBUMIN 4.0 3.5 - 5.0 g/dL 10/11/2024 5:47 PM CDT [facility] A/G RATIO 1.4 1.0 - 2.2 10/11/2024 5:47 PM CDT [facility] CALCIUM 9.0 8.7 - 10.5 mg/dL 10/11/2024 5:47 PM CDT [facility] T BILI 0.1(L) 0.2 - 1.2 mg/dL 10/11/2024 5:47 PM CDT [facility] SGOT (AST) 36 <43 U/L 10/11/2024 5:47 PM CDT [facility] Comment: Specimen is hemolyzed. In vitro hemolysis could affect results. Clinical correlation advised. SGPT (ALT) 22 <56 U/L 10/11/2024 5:47 PM CDT [facility] ALKALINE PHOSPHATASE 97 40 - 150 U/L 10/11/2024 5:47 PM CDT [facility] GFR, ESTIMATED >60 >=60 10/11/2024 5:47 PM CDT [facility] Comment: Creatinine Clearance is the preferred criteria for selecting drug dose adjustments in renally impaired patients. The GFR is provided as additional pertinent clinical information. GFR is reported in mL/min/1.73 sq m. Calculation based on the Chronic Kidney Disease Epidemiology Collaboration (CKD- EPI) equation refit without adjustment for race. GFR, EST. >60 >=60 025 5:47 PM CDT [facility] GFR, EST. NONAFRICAN >60 >=60 10/11/2024 5:47 PM CDT [facility] Blood Venipuncture / Unknown 10/11/2024 4:51 PM CDT 10/11/2024 5:02 PM CDT us Arielle Galdamez MD CHEMISTRY ORDERABLES Final Re sult [facility] [address] [place] [address] * POCT Urine HCG () (10/11/2024 4:20 PM CDT) POC URINE Negative POC URINE CONTROL Zipper Setter Pass Urine 10/11/2024 4:20 PM CDT Arielle Galdamez MD POINT OF CARE TESTING (MANUAL ) Final Result * CT ABDOMEN PELVIS W/O CONTRAST (10/09/2024 5:50 PM NUTRITIONIST) Anatomical Region Laterality Modality Abdomen N/A Computed Tomogra phy 10/09/2024 6:22 PM NUTRITIONIST Impressions 10/09/2024 6:24 PM NUTRITIONIST IMPRESSION: No bowel inflammation or other cause for hematemesis identified. Narrative 10/09/2024 6:24 PM NUTRITIONIST EXAM DESCRIPTION: CT ABDOMEN PELVIS W/O CONTRAST [...] Santi Castrejon M.D. AR: CYN Report ID: [id number] Reading Location: [id number] Procedure Note Santi Castrejon MD - 10/09/2024 [...] Santi Castrejon M.D. AR: CYN Report ID: [id number] Reading Location: [id number] IMPRESSION: No bowel inflammation or other cause for hematemesis identified. Maame Ayala MD IMG CT ORDERABLES Final Result * PT / INR (10/09/2024 5:13 PM NUTRITIONIST) PROTIME-PATIENT 12.5 11.6 - 14.8 sec 10/09/2024 6:00 PM NUTRITIONIST [facility] INR 0.9 0.9 - 1.2 10/09/2024 6:00 PM NUTRITIONIST [facility] Comment: Therapeutic Ranges INR = 2.0-3.0: Venous thromb, atrial fib, pul embolism, tissue heart valve, ami. INR = 2.5-3.5: Mechanical heart valve Critical value for INR is >/= 4.5 Blood Venipuncture / Unknown 10/09/2024 5:13 PM NUTRITIONIST 10/09/2024 5:45 PM NUTRITIONIST Maame Ayala MD HEMATOLOGY ORDERABLES Fi nal Result Performing Organization Address City/[facility]/ZIP Co de Phone Number [facility] [address] [place] [address] * Magnesium (10/09/2024 2:26 PM NUTRITIONIST) Only the most recent of2 resultswithin the time period is included. MAGNESIUM 2.2 1.6 - 2.6 mg/dL 10/09/2024 5:04 PM NUTRITIONIST [facility] Blood Venipuncture / Unknown 10/09/2024 2:26 PM NUTRITIONIST 10/09/2024 2:35 PM NUTRITIONIST Maame Ayala MD CHEMISTRY ORDERABLES Fin al Result Performing Organization Address City/[facility] Co de Phone Number [facility] [address] [place] [address] * XR CHEST SINGLE VIEW PORTABLE (07/20/2024 8:08 PM NUTRITIONIST) Anatomical Region Laterality Modality Chest N/A Digital Radiogra phy 07/20/2024 8:13 PM NUTRITIONIST Impressions 07/20/2024 8:15 PM NUTRITIONIST IMPRESSION: No acute abnormality identified. Narrative 07/20/2024 8:15 PM NUTRITIONIST EXAM DESCRIPTION: XR CHEST SINGLE VIEW PORTABLE [...] Santi Castrejon M.D. AR: CYN Report ID: [id number] Reading Location: [id number] Procedure Note Santi Castrejon MD - 07/20/2024 [...] Santi Castrejon M.D. AR: CYN Report ID: [id number] Reading Location: [id number] IMPRESSION: No acute abnormality identified. Adrian Yap MD IM DIAGNOSTIC ORDERABLES Final Result * RSV,SARS-COV-2,INFLUENZA A&B BY PCR (07/20/2024 8:02 PM NUTRITIONIST) FLU A Negative Negative, Error 07/20/2024 9:02 PM NUTRITIONIST [facility] FLU B Negative Negative 07/20/2024 9:02 PM NUTRITIONIST [facility] RESP SYNC VIRUS Negative Negative 9:02 PM NUTRITIONIST [facility] SARSCOV2 NOT DETECTED (Reference Range for this test is Not Detected) 07/20/2024 9:02 PM NUTRITIONIST [facility] Comment:This test was perfor med by a Reverse Respiratory Assistant PCR Method. Swab NASOPHARYNGEAL SWAB / Unknown Non-Phlebotomy Collection / Unknown 07/20/2024 8:02 PM NUTRITIONIST 07/20/2024 8:11 PM NUTRITIONIST Narrative [facility] - 07/20/2024 9:02 PM NUTRITIONIST This test has not been FDA cleared or approved; the test has been authorized by FDA under an Emergency Use Authorization (EUA) for use by laboratories certified under the CLIA that meet the requirements to perform moderate, high or waived complexity tests. Authorized Fact Sheets about this test for providers and patients are available at: https://www.fda.gov/medical-devices/vgkfdmzqt-bkdpxpjgwe-aosifkd-devices/emergen -us e-authorizations Result [facility] Adrian Yap MD MICROBIOLOGY - GENERAL OR DERABLES Final Result Performing Organization Address City/[facility] Co de Phone Number [facility] [address] [place] [address] * TROPONIN I, HIGH SENSITIVITY (HSTRP) (07/20/2024 8:00 PM NUTRITIONIST) [facility] TROPONIN I, HIGH SENSITIVITY- XIAO <3 <=14 ng/L 07/20/2024 8:45 PM NUTRITIONIST [facility] Comment: High-sensitivity troponin I results are reported in ng/L making the result appear to be 1,000 times higher than the contemporary troponin I value which is reported in ng/ml. Results from [facility]. Blood Venipuncture / Unknown 07/20/2024 8:00 PM NUTRITIONIST 07/20/2024 8:12 PM NUTRITIONIST Result [facility] Adrian Yap MD CHEMISTRY ORDERABLES Ashly l Result Performing Organization Address [facility] Co de Phone Number [facility] [address] [place] [address] * Gold Top Tube (07/20/2024 8:00 PM NUTRITIONIST) Blood No Phlebotomy Charged / Unknown 07/20/2024 8:00 PM NUTRITIONIST 07/20/2024 8:13 PM NUTRITIONIST Result [facility] Adrian Yap MD CHEMISTRY ORDERABLES Ashly l Result Performing Organization Address City/[facility]/ZIP Co de Phone Number [facility] [address] [place] [address] * Blue Top Tube (07/20/2024 8:00 PM NUTRITIONIST) Blood No Phlebotomy Charged / Unknown 07/20/2024 8:00 PM NUTRITIONIST 07/20/2024 8:13 PM NUTRITIONIST Adrian Yap MD HEMATOLOGY ORDERABLES Fin al Result Performing Organization Address City/[facility]/ZIP Co de Phone Number [facility] [address] [place] [address] * B-Type Natriuretic Peptide (BNP) (07/20/2024 8:00 PM NUTRITIONIST) B TYPE NATRIURETIC PEPTIDE <15 <100 pg/mL 07/20/2024 9:39 PM NUTRITIONIST [facility] Blood Venipuncture / Unknown 07/20/2024 8:00 PM NUTRITIONIST 07/20/2024 8:12 PM NUTRITIONIST Adrian Yap MD CHEMISTRY ORDERABLES Ashly l Result Performing Organization Address [facility] Co de Phone Number [facility] [address] [place] [address] * EKG 12 LEAD (07/20/2024 7:13 PM NUTRITIONIST) Ventricular Rate 72 BPM EXTERNAL EKG Atrial Rate 72 BPM EXTERNAL EKG P-R Interval 160 ms EXTERNAL EKG QRS Duration 86 ms EXTERNAL EKG Q-T Duration 358 ms EXTERNAL EKG QTC CALCULATION 392 ms EXTERNAL EKG P [place] 13 degrees EXTERNAL EKG R [place] 19 degrees EXTERNAL EKG T [place] 42 degrees EXTERNAL EKG 07/20/2024 7:13 PM NUTRITIONIST Impressions EXTERNAL EKG - 07/22/2024 2:59 PM NUTRITIONIST Normal sinus rhythm Normal ECG When compared with ECG of 06-AUG-2023 20:11, No significant change was found Confirmed by Joel Long ([id number]) on 07/22/2024 2:59:01 PM Narrative Procedure Note Joel Long MD - 07/22/2024 IMPRESSION: Normal sinus rhythm Normal ECG When compared with ECG of 06-AUG-2023 20:11, No significant change was found Confirmed by Joel Long ([id number]) on 07/22/2024 2:59:01 PM us Adrian Yap MD IMG ECG ORDERABLES Final Result Performing Organization Address City/[facility]/ZIP Co de Phone Number EXTERNAL EKG * EKG SCAN (07/20/2024 12:00 AM NUTRITIONIST) 07/20/2024 us Provider Scan IMG ECG ORDERABLES Final Result Performing Organization Address [facility] Co de Phone Number RESULTING AGENCY * Stool, Occult Blood, Diagnostic (03/12/2024 5:19 PM CDT) OCCULT BLOOD DIAG, GI BLEED Negative Negative 03/12/2024 5:54 PM CDT [facility] Stool STOOL SPECIMEN / Unknown Non-Phlebotomy Collection / Unknown 03/12/2024 5:19 PM CDT 03/12/2024 5:37 PM CDT Jhoana Carrion APRN, RUBBER EXTRUSION MACHINE OPERATOR BODY FLUIDS & STOOLS ORDERABLES Final Result Performing Organization Address [facility] Co de Phone Number [facility] [address] [place] [address] from Last 3 Months or Most Recently [...] measures to stabilize the patient. Care Teams Geriatric Case Manager Relationship Specialty Start Date End Date Eli Abbott MD [address] [place] [address] PCP - General Family Medicine 09/03/24 Jn Polo PAC [address] [place] [address] Physician Government Operations Consultant Physician Government Operations Consultant 07/13/24
--- OUTSIDE RECORDS SUMMARY | 2024-10-13 01:56 | XMS_ITS | Clinical Summary ---
Author Organization [facility] bepretty Address [address] [place] [address] Care Team Providers Care Database Administration Associate Name Role Phone Ally Chambers RN Unavailable [phone] Brett Chávez MD Primary Care Provider [phone] Source Comments [facility],non-owned Affiliates and Associated Physician Practices is amultiple site organization consisting of ambulatory clinics and hospital sitesin [place], [place], [place] and [place]. This disclosure is being madepursuant to the Care Everywhere program and may not contain all information available regarding this patient. Last updated 18.[facility] Allergies Active Allergy Reactions Criticality Noted Date [...] Active midazolam (Nayzilam) 5 MG/0.1ML nasal spray [place] 0.1 mL into the nose as needed for Seizures (Only if seizure occurres) 03/05/2024 Active vitamin D, ergocalciferol, (Drisdol) 1.25 MG (15984 UT) capsule Take 1 (one) capsule by [...] nausea 12/24/2023 PICC (peripherally inserted central catheter) [facility] 12/16/2023 Lumbar pain 12/12/2023 Abscess after procedure 12/12/2023 Seizures Anxiety Encounters Date Type Department Care Team Description 10/08/2024 5:40 PM [facility] - 10/09/2024 5:57 AM [facility] Hospital Encounter [facility] [address] [place] [address] Bronson Shaw MD Mayer, Joshua C, DO Hematemesis with nausea (Primary Dx); History of Janell-en-Y gastric bypass; History of peptic ulcer disease; Upper GI bleed Discharge Disposition: Left Against Medical Advice/Discontinued Care 10/08/2024 Travel 09/19/2024 7:35 PM [facility] - 09/19/2024 8:23 PM [facility] Emergency [facility] [address] [place] [address] Christiano Otto MD Left hip pain; Fall, initial encounter; Musculoskeletal pain Discharge Disposition: Home or Self Care 09/19/2024 Travel 09/14/2024 11:30 AM [facility] Office Visit [facility] - Neurosurgery [address] [place] [address] Fahad Monzon MD Chronic bilateral low back [...] Recorded Patient Health Questionnaire-2 Score 0 04/27/2024 [facility] [place] of Occupat ional Health - Occupational Stress [...] Comments Blood Pressure 103/63 10/09/2024 5:00 AM [facility] Pulse 62 10/09/2024 5:00 AM [facility] Temperature 36 C (96.8 F) 10/08/2024 2:39 PM [facility] Respiratory Rate 18 10/09/2024 5:00 AM [facility] Oxygen Saturation 93% 10/09/2024 5:00 AM [facility] Inhaled Oxygen Concentration - - Weight 108.9 kg (240 lb) 10/08/2024 2:39 PM [facility] Height 190.5 cm (6' 3 ) 10/08/2024 2:39 PM [facility] Body Mass Index 30 10/08/2024 2:39 PM [facility] Plan of Treatment Upcoming Encounters Date Type Department Care Team (Late st Contact Info) Description 10/21/2024 2:00 PM CDT Office Visit [facility] - Neurology [address] [place] [address], [facility] [place] [address] Charanjit Jackson MD [address] [place] [address] [place] [id number] Health Maintenance Due Date Last Done Comments [...] W AUTO DIFFERENTIAL STAT 10/09/2024 2:19 AM [facility] MAGNESIUM BLOOD STAT 10/09/2024 2:19 AM [facility] PHOSPHORUS BLOOD STAT 10/09/2024 2:19 AM [facility] BASIC METABOLIC PANEL (CALCIUM TOTAL) STAT 10/09/2024 2:[address] NECK SOFT TISSUE W CONT STAT 10/08/2024 7:44 PM [facility] Hematemesis with nausea CT CHEST ABDOMEN PELVIS W CONT STAT 10/08/2024 7:44 PM [facility] Hematemesis with nausea HGB HCT PANEL STAT 10/08/2024 7:10 PM [facility] SARS-COV-2 (COVID-19)+INFLU A+B PCR RAPID STAT 10/08/2024 7:09 PM [facility] TYPE + SCREEN PANEL STAT 10/08/2024 3 :25 PM [facility] PT-INR [facility] STAT 10/08/2024 3:25 PM [facility] COMPREHENSIVE METABOLIC PANEL STAT 10/08/2024 3:25 PM [facility] CBC W AUTO DIFFERENTIAL STAT 10/08/2024 3:25 PM [facility] XR KNEE RIGHT 3VW STAT 09/19/2024 7:4 8 PM [facility] Left hip pain XR PELVIS W LEFT HIP 2VW STAT 09/19/2024 7:47 PM [facility] Left hip pain CT CERVICAL SPINE WO CONTRAST STAT 09/19/2024 7:32 PM [facility] Fall, initial encounter CT THORACIC SPINE WO CONTRAST STAT 09/19/2024 7:32 PM [facility] Fall, initial encounter CT LUMBAR SPINE WO CONTRAST STAT 09/19/2024 7:32 PM [facility] Fall, initial encounter HELICOBACTER PYLORI ANTIGEN FECES Routine 09/02/2024 12:30 PM [facility] H. pylori infection HEPATITIS SCREEN ACUTE Routine 3 5:15 AM CDT from Last 3 Months or Most Recently Relevant to Health Maintenance Results * CARDIAC EKG ORDER (10/12/2024 1:03 PM CDT) Narrative 10/12/2024 1:03 PM CDT Ordered by an unspecified provider. Scanned Document CARDIAC SERVICES ORD ERABLES * (ABNORMAL) CBC W AUTO DIFFERENTIAL (10/09/2024 2:19 AM [facility]) Only the most recent of2 resultswithin the time period is included. WBC 5.3 4.0 - 10.7 x10E9/L 10/09/2024 2:32 AM [facility] RBC Count 4.21 3.90 - 5.20 x10E12/L 10/09/2024 2:32 AM [facility] Hemoglobin 10.0(L) 11.9 - 15.8 g/dL 10/09/2024 2:32 AM [facility] Hematocrit 32.2(L) 34.8 - 46.1 % 10/09/2024 2:32 AM [facility] MCV 76.5(L) 80.0 - 98.0 fL 10/09/2024 2:32 AM [facility] MCH 23.8(L) 26.7 - 33.6 pg 10/09/2024 2:32 AM [facility] MCHC 31.1(L) 31.7 - 36.3 g/dL 10/09/2024 2:32 AM [facility] RDW-CV 19.6(H) 11.3 - 14.8 % 10/09/2024 2:32 AM [facility] Platelet Count 340 150 - 420 x10E9/L 10/09/2024 2:32 AM [facility] MPV 9.3 7.8 - 11.4 fL 10/09/2024 2:32 AM [facility] Neutrophil % 73.3 41.0 - 74.0 % 10/09/2024 2:32 AM [facility] Lymphocyte % 20.8 17.0 - 47.0 % 10/09/2024 2:32 AM [facility] Monocyte % 4.3 3.0 - 11.0 % 10/09/2024 2:32 AM [facility] Eosinophil % 0.6 0.0 - 7.0 % 10/09/2024 2:32 AM [facility] Basophil % 0.6 0.0 - 1.6 % 10/09/2024 2:32 AM [facility] Immature Granulocytes % 0.4 0.0 - 1.0 % 10/09/2024 2:32 AM [facility] Neutrophil Absolute 3.88 1.60 - 7.50 x10E9/L 10/09/2024 2:32 AM [facility] Lymphocyte Absolute 1.10 1.00 - 4.40 x10E9/L 10/09/2024 2:32 AM [facility] Monocyte Absolute 0.23 0.15 - 1.00 x10E9/L 10/09/2024 2:32 AM [facility] Eosinophil Absolute 0.03 0.00 - 0.60 x10E9/L 10/09/2024 2:32 AM [facility] Basophil Absolute 0.03 0.00 - 0.13 x10E9/L 10/09/2024 2:32 AM [facility] Blood BLOOD SPECIMEN / Unknown Venipuncture / Unknown 10/09/2024 2:19 AM [facility] 10/09/2024 2:23 AM [facility] Nilesh Krause DO LAB - HEMATOLOGY ORD ERABLES [facility] [address] [place] [address] [phone] * (ABNORMAL) BASIC METABOLIC PANEL (CALCIUM TOTAL) (10/09/2024 2:19 AM [facility]) BUN 9 7 - 26 mg/dL 10/09/2024 2:48 AM [facility] Creatinine 0.60 0.56 - 0.96 mg/dL 10/09/2024 2:48 AM [facility] Sodium 140 136 - 145 mmol/L 10/09/2024 2:48 AM [facility] Potassium 4.4 3.5 - 4.5 mmol/L 10/09/2024 2:48 AM [facility] Chloride 110(H) 98 - 107 mmol/L 10/09/2024 2:48 AM [facility] CO2 21(L) 22 - 29 mmol/L 10/09/2024 2:48 AM [facility] Glucose 104(H) 70 - 99 mg/dL 10/09/2024 2:48 AM [facility] Calcium 8.4 8.4 - 10.2 mg/dL 10/09/2024 2:48 AM [facility] Anion Gap 9 6 - 16 10/09/2024 2:48 AM [facility] BUN/Creatinine Ratio 15 7 - 23 10/09/2024 2:48 AM [facility] Osmolality Calculated 289 275 - 295 mOsm/kg 10/09/2024 2:48 AM [facility] eGFR by CKD-EPI >90 >=90 mL/min/1.7 3 m2 10/09/2024 2:48 AM [facility] Blood BLOOD SPECIMEN / Unknown Venipuncture / Unknown 10/09/2024 2:19 AM [facility] 10/09/2024 2:23 AM [facility] Nilesh Long Krause DO LAB - CHEMISTRY [place] [address] [address], [place] [phone] * PHOSPHORUS BLOOD (10/09/2024 2:19 AM [facility]) Phosphorus 4.4 2.9 - 5.1 mg/dL 10/09/2024 2:48 AM [facility] Blood BLOOD SPECIMEN / Unknown Venipuncture / Unknown 10/09/2024 2:19 AM [facility] 10/09/2024 2:23 AM [facility] Nilesh Mercedes Krause LAB - CHEMISTRY [place] Performing Organization Address City/[facility]/ZIP Co de Phone Number [address] [address], [place] [phone] * MAGNESIUM BLOOD (10/09/2024 2:19 AM [facility]) Magnesium 1.9 1.6 - 2.6 mg/dL 10/09/2024 2:48 AM [facility] Blood BLOOD SPECIMEN / Unknown Venipuncture / Unknown 10/09/2024 2:19 AM [facility] 10/09/2024 2:23 AM [facility] Nilesh Mercedes Krause LAB - CHEMISTRY [place] [address] [address] [phone] * CT Chest Abdomen Pelvis W Cont (10/08/2024 7:44 PM [facility]) Anatomical Region Laterality Modality Chest, Abdomen, Pelvis Computed Tomography 10/08/2024 7:51 PM [facility] Impressions 10/08/2024 10:55 PM [facility] Impression: 1.Postoperative appearance of Janell-en-Y gastric bypass. [...] 10/08/2024 10:55 PM Narrative 10/08/2024 10:55 PM [facility] Procedure Information DATE: 10/08/2024 7:45 PM EXAMINATION: [...] Soft Tissue W Cont (10/08/2024 7:44 PM [facility]) Anatomical Region Laterality Modality Head Computed Tomogra phy 10/08/2024 8:01 PM [facility] Impressions 10/08/2024 8:53 PM [facility] IMPRESSION: 1.No evidence of soft tissue swelling, mass or acute pathology in the neck. 2.There is no evidence of abscess, pneumomediastinum or soft tissue air. The report is dictated by Diana Real MD (residential designer) ICarlos MD have personally reviewed and interpreted this examination/study. > Interpreting Provider: Carlos Carrera MD on 10/08/2024 8:53 PM Narrative 10/08/2024 8:53 PM [facility] PROCEDURE: CT NECK SOFT TISSUE W CONT, DATE/TIME OF EXAM: 10/08/2024 7:45 PM, LOCATION [facility] INDICATION: R11.14: Bilious vomiting with nausea ADDITIONAL [...] CONT, DATE/TIME OF EXAM: 57:45 PM, LOCATION [facility] INDICATION: R11.14: Bilious vomiting with nausea ADDITIONAL [...] report is dictated by Diana Real MD (residential designer) I, Carlos Carrera MD have personally reviewed and interpreted this examination/study. > Interpreting Provider: Carlos Carrera MD on 10/08/2024 8:53 PM Bronson Shaw MD CT ORDERABLES * (ABNORMAL) HGB HCT PANEL (10/08/2024 7:10 PM [facility]) Hemoglobin 10.9(L) 11.9 - 15.8 g/dL 10/08/2024 7:21 PM [facility] Hematocrit 35.8 34.8 - 46.1 % 10/08/2024 7:21 PM [facility] Blood BLOOD SPECIMEN / Unknown Venipuncture / Unknown 10/08/2024 7:10 PM [facility] 10/08/2024 7:16 PM [facility] Bronson Shaw MD LAB - HEMATOLOG Y ORDERABLES [facility] [address] [place] [id number], [facility] [phone] * SARS-COV-2 (COVID-19)+INFLU A+B PCR RAPID (10/08/2024 7:09 PM [facility]) COVID-19 PCR Not detected Not detected 10/09/19 7:57 PM [facility] Influenza A Rapid YULIANA Not Detected Not Detected 10/08/2024 7:57 PM [facility] Influenza B YULIANA Rapid Not Detected Not Detected 10/08/2024 7:57 PM [facility] Microbiology SPECIMEN FROM NASOPHARYNGEAL STRUCTURE / Unknown Collection / Unknown 10/08/2024 7:09 PM [facility] 10/08/2024 7:14 PM [facility] Narrative [facility] - 10/08/2024 7:57 PM [facility] Influenza assay performed by [employer]. [...] acid amplification assay performance was validated by [facility]. This test has been authorized by the [...] - MICROBIOL OGY ORDERABLES Performing Organization Address [facility] Co de Phone Number [address] [address], [facility] [phone] * (ABNORMAL) PT-INR [facility] (10/08/2024 3:25 PM [facility]) Pathologist [facility] PT 12.0(L) 12.1 - 14.8 Seconds 10/08/2024 3:58 PM [facility] INR 0.9 See Comment 10/08/2024 3:58 PM [facility] Comment:The suggested therap eutic range for standard coumadin (warfarin) therapy is an INR of 2.0-3.0. For high-risk patients (Mechanical Mitral Valve Prosthesis, etc.), the suggested prophylactic therapeutic range is an INR of 2.5-3.5. Blood BLOOD SPECIMEN / Unknown Venipuncture / Unknown 10/08/2024 3:25 PM [facility] 10/08/2024 3:33 PM [facility] Zeinab Taylor MAJOR ASSEMBLY LINEMAN-WRAPPER STEMMER HAND LAB - COAGUL ATION ORDERABLES Performing Organization Address [facility] Co de Phone Number [address] [address], [facility] [phone] * TYPE + SCREEN PANEL (10/08/2024 3:25 PM [facility]) Antibody Screen NEG 4:24 PM [facility] ABO Rh O POS 10/08/2024 4:24 PM [facility] Blood Bank BLOOD SPECIMEN / Unknown Venipuncture / Unknown 10/08/2024 3:25 PM [facility] 10/08/2024 3:40 PM [facility] Zeinab Taylor MAJOR ASSEMBLY LINEMAN-WRAPPER STEMMER HAND LAB - BLOOD BANK ORDERABLES [facility] [address] [place] [address], [facility] [phone] * COMPREHENSIVE METABOLIC PANEL (10/08/2024 3:25 PM [facility]) BUN 11 7 - 26 mg/dL 10/08/2024 4:02 PM [facility] Creatinine 0.63 0.56 - 0.96 mg/dL 10/08/2024 4:02 PM [facility] Sodium 138 136 - 145 mmol/L 10/08/2024 4:02 PM [facility] Potassium 4.2 3.5 - 4.5 mmol/L 10/08/2024 4:02 PM [facility] Chloride 107 98 - 107 mmol/L 10/08/2024 4:02 PM [facility] CO2 22 22 - 29 mmol/L 10/08/2024 4:02 PM [facility] Glucose 88 70 - 99 mg/dL 10/08/2024 4:02 PM [facility] Calcium 8.9 8.4 - 10.2 mg/dL 10/08/2024 4:02 PM [facility] Protein Total 6.8 6.0 - 8.3 g/dL 10/08/2024 4:02 PM [facility] Albumin 3.9 3.4 - 5.0 g/dL 10/08/2024 4:02 PM [facility] Bilirubin Total 0.2 0.2 - 1.2 mg/dL 10/08/2024 4:02 PM [facility] Alkaline Phosphatase 111 40 - 150 U/L 10/08/2024 4:02 PM [facility] ALT 23 5 - 55 U/L 10/08/2024 4:02 PM [facility] AST 25 5 - 34 U/L 10/08/2024 4:02 PM [facility] Anion Gap 9 6 - 16 10/08/2024 4:02 PM [facility] BUN/Creatinine Ratio 17 7 - 23 10/08/2024 4:02 PM [facility] Osmolality Calculated 285 275 - 295 mOsm/kg 10/08/2024 4:02 PM [facility] Albumin/Globulin Ratio 1.3 1.1 - 2.3 10/08/2024 4:02 PM [facility] eGFR by CKD-EPI >90 >=90 mL/min/1.7 3 m2 10/08/2024 4:02 PM [facility] Blood BLOOD SPECIMEN / Unknown Venipuncture / Unknown 10/08/2024 3:25 PM [facility] 10/08/2024 3:35 PM [facility] Zeinab Taylor MAJOR ASSEMBLY LINEMAN-WRAPPER STEMMER HAND LAB - CHEMIS TRY ORDERABLES [facility] [address] [place] [address], [facility] [phone] * XR Knee Right 3Vw (09/19/2024 7:48 PM [facility]) Anatomical Region Laterality Modality Lower Extremity Digital Radiogra phy 09/19/2024 7:44 PM [facility] Impressions 09/20/2024 8:25 AM [facility] IMPRESSION: No acute fracture or dislocation identified. Report dictated by Brennen Antoine DO (residential designer). ILina MD have personally reviewed and interpreted this examination/study. > Interpreting Provider: Lina Weinberg MD on 09/20/2024 8:25 AM Narrative 09/20/2024 8:25 AM [facility] PROCEDURE: XR KNEE RIGHT 3VW, DATE/TIME OF EXAM: 09/19/2024 7:16 PM, LOCATION [facility] INDICATION: M25.552: Left hip pain ADDITIONAL CLINICAL [...] DATE/TIME OF EXAM: 09/19/2024 7:16 PM, LOCATION [facility] INDICATION: M25.552: Left hip pain ADDITIONAL CLINICAL [...] identified. Report dictated by Brennen Antoine DO (residential designer). Lina Sewell MD have personally reviewed and interpreted this examination/study. > Interpreting Provider: Lina Weinberg MD on 09/20/2024 8:25 AM Zeinab Taylor MAJOR ASSEMBLY LINEMAN-WRAPPER STEMMER HAND DIAGNOSTIC I MAGING ORDERABLES * XR Pelvis W Left Hip 2Vw (09/19/2024 7:47 PM [facility]) Anatomical Region Laterality Modality Pelvis Digital Radiogra phy 09/19/2024 7:47 PM [facility] Impressions 09/20/2024 8:24 AM [facility] IMPRESSION: No acute fracture identified. Report dictated by Brennen Antoine DO (residential designer). Lina Sewell MD have personally reviewed and interpreted this examination/study. > Interpreting Provider: Lina Weinberg MD on 09/20/2024 8:24 AM Narrative 09/20/2024 8:24 AM [facility] PROCEDURE: XR PELVIS W LEFT HIP 2VW, DATE/TIME OF EXAM: 09/19/2024 7:48 PM, LOCATION [facility] INDICATION: M25.552: Left hip pain ADDITIONAL CLINICAL [...] DATE/TIME OF EXAM: 09/19/2024 7:48 PM, LOCATION [facility] INDICATION: M25.552: Left hip pain ADDITIONAL CLINICAL INFORMATION: Ordering Provider Reason For Exam: r/o fx Technologist Note: Additional: None. COMPARISON: None. FINDINGS: No acute fracture is identified. The femoral heads appear well-seated within their respective acetabula. The pubic symphysis is intact. Bone density and texture are normal. The sacroiliac joints are normal. IMPRESSION: No acute fracture identified. Report dictated by Brennen Antoine DO (residential designer). ILina MD have personally reviewed and interpreted this examination/study. > Interpreting Provider: Lina Weinberg MD on 09/20/2024 8:24 AM Zeinab Titus Brandon MAJOR ASSEMBLY LINEMAN-WRAPPER STEMMER HAND DIAGNOSTIC I MAGING ORDERABLES * CT Lumbar Spine Wo Contrast (09/19/2024 7:32 PM [facility]) Anatomical Region Laterality Modality Spine Computed Tomogra phy 09/19/2024 7:40 PM [facility] Impressions 09/19/2024 7:53 PM [facility] IMPRESSION: 1. No evidence of acute fracture in the cervical, thoracic, or lumbar spine. > Interpreting Provider: Jackie Olmedo MD on 09/19/2024 7:53 PM Narrative 09/19/2024 7:53 PM [facility] PROCEDURE: CT CERVICAL SPINE WO CONTRAST, CT THORACIC SPINE WO CONTRAST, CT LUMBAR SPINE WO CONTRAST, DATE/TIME OF EXAM: 09/19/2024 7:32 PM, LOCATION [facility] INDICATION: W19.XXXA: Fall, initial encounter ADDITIONAL CLINICAL [...] DATE/TIME OF EXAM: 09/19/2024 7:32 PM, LOCATION [facility] INDICATION: W19.XXXA: Fall, initial encounter ADDITIONAL CLINICAL [...] endplate compression fractures of the L2 and T6nhwbzitof bodies with less than 25% height loss [...] MD on 09/19/2024 7:53 PM Zeinab Taylor MAJOR ASSEMBLY LINEMAN-WRAPPER STEMMER HAND CT ORDERABLE S * CT Thoracic Spine Wo Contrast (09/19/2024 7:32 PM [facility]) Anatomical Region Laterality Modality Spine Computed Tomogra phy 09/19/2024 7:40 PM [facility] Impressions 09/19/2024 7:53 PM [facility] IMPRESSION: 1. No evidence of acute fracture in the cervical, thoracic, or lumbar spine. > Interpreting Provider: Jackie Olmedo MD on 09/19/2024 7:53 PM Narrative 09/19/2024 7:53 PM [facility] PROCEDURE: CT CERVICAL SPINE WO CONTRAST, CT THORACIC SPINE WO CONTRAST, CT LUMBAR SPINE WO CONTRAST, DATE/TIME OF EXAM: 09/19/2024 7:32 PM, LOCATION [facility] INDICATION: W19.XXXA: Fall, initial encounter ADDITIONAL CLINICAL [...] DATE/TIME OF EXAM: 09/19/2024 7:32 PM, LOCATION [facility] INDICATION: W19.XXXA: Fall, initial encounter ADDITIONAL CLINICAL [...] endplate compression fractures of the L2 and U2qsjrtlzpd bodies with less than 25% height loss [...] MD on 09/19/2024 7:53 PM Zeinab Taylor MAJOR ASSEMBLY LINEMAN-WRAPPER STEMMER HAND CT ORDERABLE S * CT Cervical Spine Wo Contrast (09/19/2024 7:32 PM [facility]) Anatomical Region Laterality Modality Spine Computed Tomogra phy 09/19/2024 7:40 PM [facility] Impressions 09/19/2024 7:53 PM [facility] IMPRESSION: 1. No evidence of acute fracture in the cervical, thoracic, or lumbar spine. > Interpreting Provider: Jackie Olmedo MD on 09/19/2024 7:53 PM Narrative 09/19/2024 7:53 PM [facility] PROCEDURE: CT CERVICAL SPINE WO CONTRAST, CT THORACIC SPINE WO CONTRAST, CT LUMBAR SPINE WO CONTRAST, DATE/TIME OF EXAM: 09/19/2024 7:32 PM, LOCATION [facility] INDICATION: W19.XXXA: Fall, initial encounter ADDITIONAL CLINICAL [...] DATE/TIME OF EXAM: 09/19/2024 7:32 PM, LOCATION [facility] INDICATION: W19.XXXA: Fall, initial encounter ADDITIONAL CLINICAL [...] endplate compression fractures of the L2 and C3uawahteis bodies with less than 25% height loss [...] on 09/19/2024 7:53 PM Zeinab Nicholeemeka Taylor MAJOR ASSEMBLY LINEMAN-WRAPPER STEMMER HAND CT ORDERABLE S * HELICOBACTER PYLORI ANTIGEN FECES (09/02/2024 12:30 PM [facility]) Pathologist [facility] Helicobacter pylori Antigen Stool Negative Negative 09/04/2024 1:46 PM [facility] [employer] ([facility]) Comment: Performed By: Recorded [employer] [address] [place] [address] Field Service Specialist: Alfonso Mercado MD, PhD CLIA Number: [id number] Stool STOOL SPECIMEN / Unknown Collection / Unknown 09/02/2024 12:30 PM [facility] 09/02/2024 12:31 PM [facility] Bernadette Watson MD LAB - MICROBIOLOGY O RDERABLES [facility]) [address] [place] [address], [facility] * HEPATITIS SCREEN ACUTE (05/07/2013 5:15 AM CDT) Hepatitis A Virus Antibody IgM NONREACTIVE NONREACTIVE [facility] Hepatitis C Antibody NONREACTIVE NONREACTIVE [facility] Comment: Anti-HCV screen indicates no serologic evidence of past or current infection with Hepatitis C Virus. Patients with unexplained liver disease who are immunocompromised or suspected of having acute Hepatitis C infection may benefit from Nucleic Acid Test (SELWYN) for Hepatitis C Viral RNA to confirm Hepatitis C status. Hepatitis B Virus Surface Antigen NONREACTIVE NONREACTIVE [facility] Hepatitis B Core Virus Antibody IgM NONREACTIVE NONREACTIVE [facility] 05/07/2013 5:15 AM CDT 05/07/2013 5:57 AM CDT Arnold Mireles MD LAB - CHEMISTRY [facility] Organization Address City/State/ZIP Co de Phone Number [address] [phone] from Last 3 Months or Most Recently [...] 9:59 AM 12/31/2023 10:03 PM Care Teams Database Administration Associate Relationship Specialty Start Date End Date Brett Chávez MD [address] [place] [phone] PCP - General 08/23/22 Ally Chambers, RN Accountant Clerk 09/12/16
--- OUTSIDE RECORDS SUMMARY | 2024-10-13 01:56 | XMS_ITS ---
Author Organization [facility] Address [address] [place] [address] Phone Care Team Providers Care Box Puller Name Role Phone Jn Polo PAC Unavailable [phone] Eli Abbott MD Primary Care Provider [phone] [facility] Chronic Condition Monitoring Status:Enrolled (Active) Start date:07/17/2023 Enrollment date:07/18/2023 Current support & services provided:Asthma Management, COPD Management Related social drivers of health:Intimate Partner Violence, Social Connections, Alcohol Use, Tobacco Use, Financial Resource Strain,Depression, Stress, Physical Activity, Food Insecurity, Transportation Needs, Housing Stability, Utilities Continued Care and Services Coordination
--- OUTSIDE RECORDS SUMMARY | 2024-10-13 01:56 | XMS_ITS | Patient Health Summary ---
Author Organization [facility] Address [address] [place] [address] Care Team Providers Care Insurance Collector Name Role Phone Ally Chambers RN Unavailable [phone] Brett Chávez MD Primary Care Provider [phone] Note from [facility],non-owned Affiliates and Associated Physician Practices is amultiple site organization consisting of ambulatory clinics and hospital sitesin [place], [place], [place] and [place]. This disclosure is being madepursuant to the Care Everywhere program and may not contain all information available regarding this patient. Last updated 18.[facility] Allergies * Acetaminophen(GI Discomfort) -Medium [...] midazolam (Nayzilam) 5 MG/0.1ML nasal spray(Started 03/05/2024) [place] 0.1 mL into the nose as needed for Seizures (Only if seizure occurres) * vitamin D, ergocalciferol, (Drisdol) 1.25 MG (23906 UT) capsule(Started 01/17/2024) Take 1 (one) capsule [...] Recorded Patient Health Questionnaire-2 Score 0 04/27/2024 [facility] - [...] place to sleep or slept in a usp (including now)? Patient declined 12/13/2023 Sex and Gender Information Value Date Recorded Sex Assigned at Not on file Gender Identity Not on file Sexual Orientation Not on file Last Filed Vital Signs Vital Sign Reading Time Taken Comments Blood Pressure 103/63 10/09/2024 5:00 AM LEAD SOFTWARE ENGINEER Pulse 62 10/09/2024 5:00 AM LEAD SOFTWARE ENGINEER Temperature 36 C (96.8 F) 10/08/2024 2:39 PM LEAD SOFTWARE ENGINEER Respiratory Rate 18 10/09/2024 5:00 AM LEAD SOFTWARE ENGINEER Oxygen Saturation 93% 10/09/2024 5:00 AM LEAD SOFTWARE ENGINEER Inhaled Oxygen Concentration - - Weight 108.9 kg (240 lb) 10/08/2024 2:39 PM LEAD SOFTWARE ENGINEER Height 190.5 cm (6' 3 ) 10/08/2024 2:39 PM LEAD SOFTWARE ENGINEER Body Mass Index 30 10/08/2024 2:39 PM LEAD SOFTWARE ENGINEER Procedures * CARDIAC EKG ORDER(Performed 10/12/2024) * [...] for Hematemesis, unspecified whether nausea present * AK ED EGD FLEX TRANSORAL DX(Performed 12/24/2023) Performed [...] 12/13/2023) * ENDOTRACHEAL TUBE NOTE(Performed 12/13/2023) * AK DRAIN SKIN ABSCESS SIMPLE(Performed 12/13/2023) Performed for [...] * GRAM STAIN SMEAR(Performed 05/04/2013) * CYTOLOGY NON-BILINGUAL INSTRUCTOR PANEL (STL)(Performed 05/04/2013) * CYTOLOGY NON-BILINGUAL INSTRUCTOR PANEL (STL)(Performed 05/04/2013) * CYTOLOGY NON-BILINGUAL INSTRUCTOR PANEL (STL)(Performed 05/04/2013) * PT-INR [facility](Performed 05/04/2013) [...] ACCUCHECK(Performed 04/30/2013) * GLUCOSE ACCUCHECK(Performed 04/30/2013) * INFORMATION SERVICES VICE PRESIDENT ANTIBODY(Performed 04/30/2013) * QUANTIFERON TB-GOLD(Performed 04/30/2013) * [...] PROTEIN(Performed 04/30/2013) * GLUCOSE ACCUCHECK(Performed 04/30/2013) * MPO/AK 3 AUTOANTIBODIES PANEL(Performed 04/30/2013) * NEUTROPHIL CYTOPLASMIC [...] CBC W AUTO DIFFERENTIAL (10/09/2024 2:19 AM LEAD SOFTWARE ENGINEER) Only the most recent of28 resultswithin the time period is included. WBC 5.3 4.0 - 10.7 x10E9/L 10/09/2024 2:32 AM [facility] RBC Count 4.21 3.90 - 5.20 x10E12/L 10/09/2024 2:32 AM [facility] Hemoglobin 10.0(L) 11.9 - 15.8 g/dL 10/09/2024 2:32 AM [facility] Hematocrit 32.2(L) 34.8 - 46.1 % 10/09/2024 2:32 AM [facility] MCV 76.5(L) 80.0 - 98.0 fL 10/09/2024 2:32 AM [facility] MCH 23.8(L) 26.7 - 33.6 pg 10/09/2024 2:32 AM [facility] MCHC 31.1(L) 31.7 - 36.3 g/dL 10/09/2024 2:32 AM [facility] RDW-CV 19.6(H) 11.3 - 14.8 % 10/09/2024 2:32 AM [facility] Platelet Count 340 150 - 420 x10E9/L 10/09/2024 2:32 AM [facility] MPV 9.3 7.8 - 11.4 fL 10/09/2024 2:32 AM [facility] Neutrophil % 73.3 41.0 - 74.0 % 10/09/2024 2:32 AM [facility] Lymphocyte % 20.8 17.0 - 47.0 % 10/09/2024 2:32 AM [facility] Monocyte % 4.3 3.0 - 11.0 % 10/09/2024 2:32 AM [facility] Eosinophil % 0.6 0.0 - 7.0 % 10/09/2024 2:32 AM [facility] Basophil % 0.6 0.0 - 1.6 % 10/09/2024 2:32 AM [facility] Immature Granulocytes % 0.4 0.0 - 1.0 % 10/09/2024 2:32 AM [facility] Neutrophil Absolute 3.88 1.60 - 7.50 x10E9/L 10/09/2024 2:32 AM [facility] Lymphocyte Absolute 1.10 1.00 - 4.40 x10E9/L 10/09/2024 2:32 AM [facility] Monocyte Absolute 0.23 0.15 - 1.00 x10E9/L 10/09/2024 2:32 AM [facility] Eosinophil Absolute 0.03 0.00 - 0.60 x10E9/L 10/09/2024 2:32 AM [facility] Basophil Absolute 0.03 0.00 - 0.13 x10E9/L 10/09/2024 2:32 AM [facility] Blood BLOOD SPECIMEN / Unknown Venipuncture / Unknown 10/09/2024 2:19 AM LEAD SOFTWARE ENGINEER 10/09/2024 2:23 AM [facility] Nilesh Krause DO LAB - HEMATOLOGY ORD ERABLES [facility] [address] [place] [address], [facility] [phone] * (ABNORMAL) BASIC METABOLIC PANEL (CALCIUM TOTAL) (10/09/2024 2:19 AM [facility]) Only the most recent of5 resultswithin the time period is included. BUN 9 7 - 26 mg/dL 10/09/2024 2:48 AM [facility] Creatinine 0.60 0.56 - 0.96 mg/dL 10/09/2024 2:48 AM [facility] Sodium 140 136 - 145 mmol/L 10/09/2024 2:48 AM [facility] Potassium 4.4 3.5 - 4.5 mmol/L 10/09/2024 2:48 AM [facility] Chloride 110(H) 98 - 107 mmol/L 10/09/2024 2:48 AM [facility] CO2 21(L) 22 - 29 mmol/L 10/09/2024 2:48 AM [facility] Glucose 104(H) 70 - 99 mg/dL 10/09/2024 2:48 AM [facility] Calcium 8.4 8.4 - 10.2 mg/dL 10/09/2024 2:48 AM [facility] Anion Gap 9 6 - 16 10/09/2024 2:48 AM [facility] BUN/Creatinine Ratio 15 7 - 23 10/09/2024 2:48 AM [facility] Osmolality Calculated 289 275 - 295 mOsm/kg 10/09/2024 2:48 AM [facility] eGFR by CKD-EPI >90 >=90 mL/min/1.7 3 m2 10/09/2024 2:48 AM [facility] Blood BLOOD SPECIMEN / Unknown Venipuncture / Unknown 10/09/2024 2:19 AM LEAD SOFTWARE ENGINEER 10/09/2024 2:23 AM [facility] Nilesh Krause DO LAB - CHEMISTRY [facility] Organization Address City/State/[facility] Co de Phone Number [facility] [address] [place] [address], [facility] [phone] * PHOSPHORUS BLOOD (10/09/2024 2:19 AM LEAD SOFTWARE ENGINEER) Only the most recent of11 resultswithin the time period is included. Phosphorus 4.4 2.9 - 5.1 mg/dL 10/09/2024 2:48 AM [facility] Blood BLOOD SPECIMEN / Unknown Venipuncture / Unknown 10/09/2024 2:19 AM LEAD SOFTWARE ENGINEER 10/09/2024 2:23 AM LEAD SOFTWARE ENGINEER Nilesh Krause DO LAB - CHEMISTRY [place] Performing Organization Address City/[facility]/ZIP Co de Phone Number [address] [address], [facility] [phone] * MAGNESIUM BLOOD (10/09/2024 2:19 AM LEAD SOFTWARE ENGINEER) Only the most recent of15 resultswithin the time period is included. Magnesium 1.9 1.6 - 2.6 mg/dL 10/09/2024 2:48 AM LEAD SOFTWARE ENGINEER [facility] Blood BLOOD SPECIMEN / Unknown Venipuncture / Unknown 10/09/2024 2:19 AM LEAD SOFTWARE ENGINEER 10/09/2024 2:23 AM LEAD SOFTWARE ENGINEER Nilesh Krause DO LAB - CHEMISTRY [place] Performing Organization Address [facility] Co de Phone Number [address] [address], [facility] [phone] * CT Chest Abdomen Pelvis W Cont (10/08/2024 7:44 PM LEAD SOFTWARE ENGINEER) Anatomical Region Laterality Modality Chest, Abdomen, Pelvis Computed Tomography 10/08/2024 7:51 PM LEAD SOFTWARE ENGINEER Impressions 10/08/2024 10:55 PM LEAD SOFTWARE ENGINEER Impression: 1.Postoperative appearance of Janell-en-Y gastric bypass. [...] 10/08/2024 10:55 PM Narrative 10/08/2024 10:55 PM LEAD SOFTWARE ENGINEER Procedure Information DATE: 10/08/2024 7:45 PM EXAMINATION: [...] Soft Tissue W Cont (10/08/2024 7:44 PM LEAD SOFTWARE ENGINEER) Anatomical Region Laterality Modality Head Computed Tomogra phy 10/08/2024 8:01 PM LEAD SOFTWARE ENGINEER Impressions 10/08/2024 8:53 PM LEAD SOFTWARE ENGINEER IMPRESSION: 1.No evidence of soft tissue swelling, mass or acute pathology in the neck. 2.There is no evidence of abscess, pneumomediastinum or soft tissue air. The report is dictated by Diana Real MD (residential door unit installer) Carlos Sewell MD have personally reviewed and interpreted this examination/study. > Interpreting Provider: Carlos Carrera MD on 10/08/2024 8:53 PM Narrative 10/08/2024 8:53 PM LEAD SOFTWARE ENGINEER PROCEDURE: CT NECK SOFT TISSUE W CONT, DATE/TIME OF EXAM: 10/08/2024 7:45 PM, LOCATION [facility] INDICATION: R11.14: Bilious vomiting with nausea ADDITIONAL [...] CONT, DATE/TIME OF EXAM: 57:45 PM, LOCATION [facility] INDICATION: R11.14: Bilious vomiting with nausea ADDITIONAL [...] is dictated by Diana Real MD (residential door unit installer) I, Carlos aCrrera MD have personally reviewed and interpreted this examination/study. > Interpreting Provider: Carlos Carrera MD on 10/08/2024 8:53 PM Bronson Shaw MD CT ORDERABLES * (ABNORMAL) HGB HCT PANEL (10/08/2024 7:10 PM LEAD SOFTWARE ENGINEER) Only the most recent of4 resultswithin the time period is included. Hemoglobin 10.9(L) 11.9 - 15.8 g/dL 10/08/2024 7:21 PM [facility] Hematocrit 35.8 34.8 - 46.1 % 10/08/2024 7:21 PM [facility] Blood BLOOD SPECIMEN / Unknown Venipuncture / Unknown 10/08/2024 7:10 PM LEAD SOFTWARE ENGINEER 10/08/2024 7:16 PM LEAD SOFTWARE ENGINEER Bronson Shaw MD LAB - HEMATOLOG Y ORDERABLES [address] [address], [facility] [phone] * SARS-COV-2 (COVID-19)+INFLU A+B PCR RAPID (10/08/2024 7:09 PM LEAD SOFTWARE ENGINEER) COVID-19 PCR Not detected Not detected 10/09/19 7:57 PM LEAD SOFTWARE ENGINEER [facility] Influenza A Rapid YULIANA Not Detected Not Detected 10/08/2024 7:57 PM LEAD SOFTWARE ENGINEER [facility] Influenza B YULIANA Rapid Not Detected Not Detected 10/08/2024 7:57 PM LEAD SOFTWARE ENGINEER [facility] Microbiology SPECIMEN FROM NASOPHARYNGEAL STRUCTURE / Unknown Collection / Unknown 10/08/2024 7:09 PM LEAD SOFTWARE ENGINEER 10/08/2024 7:14 PM LEAD SOFTWARE ENGINEER Narrative [facility] - 10/08/2024 7:57 PM LEAD SOFTWARE ENGINEER Influenza assay performed by [employer]. [...] acid amplification assay performance was validated by [facility]. This test has been authorized by [...] - MICROBIOL OGY ORDERABLES Performing Organization Address City/State/[facility] Co de Phone Number [address] [address], [facility] [phone] * (ABNORMAL) PT-INR [facility] (10/08/2024 3:25 PM LEAD SOFTWARE ENGINEER) Only the most recent of18 resultswithin the time period is included. PT 12.0(L) 12.1 - 14.8 Seconds 10/08/2024 3:58 PM LEAD SOFTWARE ENGINEER [facility] INR 0.9 See Comment 10/08/2024 3:58 PM LEAD SOFTWARE ENGINEER [facility] Comment:The suggested therap eutic range for standard coumadin (warfarin) therapy is an INR of 2.0-3.0. For high-risk patients (Mechanical Mitral Valve Prosthesis, etc.), the suggested prophylactic therapeutic range is an INR of 2.5-3.5. Blood BLOOD SPECIMEN / Unknown Venipuncture / Unknown 10/08/2024 3:25 PM LEAD SOFTWARE ENGINEER 10/08/2024 3:33 PM LEAD SOFTWARE ENGINEER [facility]in[facility] - COAGUL ATION ORDERABLES Performing Organization Address City/[facility]/ZIP Co de Phone Number [facility] [address] [place] [address], [facility] [phone] * TYPE + SCREEN PANEL (10/08/2024 3:25 PM LEAD SOFTWARE ENGINEER) Only the most recent of7 resultswithin the time period is included. Antibody Screen NEG 4:24 PM [facility] ABO Rh O POS 10/08/2024 4:24 PM [facility] Blood Bank BLOOD SPECIMEN / Unknown Venipuncture / Unknown 10/08/2024 3:25 PM LEAD SOFTWARE ENGINEER 10/08/2024 3:40 PM LEAD SOFTWARE ENGINEER [facility]inab [facility] - BLOOD BANK ORDERABLES Performing Organization Address [facility] Co de Phone Number [facility] [address] [place] [address], [facility] [phone] * COMPREHENSIVE METABOLIC PANEL (10/08/2024 3:25 PM LEAD SOFTWARE ENGINEER) Only the most recent of22 resultswithin the time period is included. BUN 11 7 - 26 mg/dL 10/08/2024 4:02 PM [facility] Creatinine 0.63 0.56 - 0.96 mg/dL 10/08/2024 4:02 PM [facility] Sodium 138 136 - 145 mmol/L 10/08/2024 4:02 PM [facility] Potassium 4.2 3.5 - 4.5 mmol/L 10/08/2024 4:02 PM [facility] Chloride 107 98 - 107 mmol/L 10/08/2024 4:02 PM [facility] CO2 22 22 - 29 mmol/L 10/08/2024 4:02 PM [facility] Glucose 88 70 - 99 mg/dL 10/08/2024 4:02 PM [facility] Calcium 8.9 8.4 - 10.2 mg/dL 10/08/2024 4:02 PM [facility] Protein Total 6.8 6.0 - 8.3 g/dL 10/08/2024 4:02 PM [facility] Albumin 3.9 3.4 - 5.0 g/dL 10/08/2024 4:02 PM [facility] Bilirubin Total 0.2 0.2 - 1.2 mg/dL 10/08/2024 4:02 PM [facility] Alkaline Phosphatase 111 40 - 150 U/L 10/08/2024 4:02 PM [facility] ALT 23 5 - 55 U/L 10/08/2024 4:02 PM [facility] AST 25 5 - 34 U/L 10/08/2024 4:02 PM [facility] Anion Gap 9 6 - 16 10/08/2024 4:02 PM [facility] BUN/Creatinine Ratio 17 7 - 23 10/08/2024 4:02 PM [facility] Osmolality Calculated 285 275 - 295 mOsm/kg 10/08/2024 4:02 PM [facility] Albumin/Globulin Ratio 1.3 1.1 - 2.3 10/08/2024 4:02 PM [facility] eGFR by CKD-EPI >90 >=90 mL/min/1.7 3 m2 10/08/2024 4:02 PM [facility] Blood BLOOD SPECIMEN / Unknown Venipuncture / Unknown 10/08/2024 3:25 PM LEAD SOFTWARE ENGINEER 10/08/2024 3:35 PM [facility] Zeinab Taylor CHARGEBACK SPECIALIST-GLASS SMOOTHER LAB - CHEMIS TRY ORDERABLES [facility] [address] [place] [address], [facility] [phone] * XR Knee Right 3Vw (09/19/2024 7:48 PM LEAD SOFTWARE ENGINEER) Anatomical Region Laterality Modality Lower Extremity Digital Radiogra phy 09/19/2024 7:44 PM LEAD SOFTWARE ENGINEER Impressions 09/20/2024 8:25 AM LEAD SOFTWARE ENGINEER IMPRESSION: No acute fracture or dislocation identified. Report dictated by Brennen Antoine DO (residential door unit installer). Lina Sewell MD have personally reviewed and interpreted this examination/study. > Interpreting Provider: Lina Weinberg MD on 09/20/2024 8:25 AM Narrative 09/20/2024 8:25 AM LEAD SOFTWARE ENGINEER PROCEDURE: XR KNEE RIGHT 3VW, DATE/TIME OF EXAM: 09/19/2024 7:16 PM, LOCATION [facility] INDICATION: M25.552: Left hip pain ADDITIONAL CLINICAL [...] DATE/TIME OF EXAM: 09/19/2024 7:16 PM, LOCATION [facility] INDICATION: M25.552: Left hip pain ADDITIONAL CLINICAL [...] Report dictated by Brennen Antoine DO (residential door unit installer). Lina Sewell MD have personally reviewed and interpreted this examination/study. > Interpreting Provider: Lina Weinberg MD on 09/20/2024 8:25 AM Zeinab Taylor CHARGEBACK SPECIALIST-GLASS SMOOTHER DIAGNOSTIC I MAGING ORDERABLES * XR Pelvis W Left Hip 2Vw (09/19/2024 7:47 PM LEAD SOFTWARE ENGINEER) Anatomical Region Laterality Modality Pelvis Digital Radiogra phy 09/19/2024 7:47 PM LEAD SOFTWARE ENGINEER Impressions 09/20/2024 8:24 AM LEAD SOFTWARE ENGINEER IMPRESSION: No acute fracture identified. Report dictated by Brennen Antoine DO (residential door unit installer). Lina Sewell MD have personally reviewed and interpreted this examination/study. > Interpreting Provider: Lina Weinberg MD on 09/20/2024 8:24 AM Narrative 09/20/2024 8:24 AM LEAD SOFTWARE ENGINEER PROCEDURE: XR PELVIS W LEFT HIP 2VW, DATE/TIME OF EXAM: 09/19/2024 7:48 PM, LOCATION [facility] INDICATION: M25.552: Left hip pain ADDITIONAL CLINICAL [...] DATE/TIME OF EXAM: 09/19/2024 7:48 PM, LOCATION [facility] INDICATION: M25.552: Left hip pain ADDITIONAL CLINICAL [...] Report dictated by Brennen Antoine DO (residential door unit installer). Lina Sewell MD have personally reviewed and interpreted this examination/study. > Interpreting Provider: Lina Weinberg MD on 09/20/2024 8:24 AM Zeinab Taylor CHARGEBACK SPECIALIST-GLASS SMOOTHER DIAGNOSTIC I MAGING ORDERABLES * CT Lumbar Spine Wo Contrast (09/19/2024 7:32 PM LEAD SOFTWARE ENGINEER) Only the most recent of2 resultswithin the time period is included. Anatomical Region Laterality Modality Spine Computed Tomogra phy 09/19/2024 7:40 PM LEAD SOFTWARE ENGINEER Impressions 09/19/2024 7:53 PM LEAD SOFTWARE ENGINEER IMPRESSION: 1. No evidence of acute fracture in the cervical, thoracic, or lumbar spine. > Interpreting Provider: Jackie Olmedo MD on 09/19/2024 7:53 PM Narrative 09/19/2024 7:53 PM LEAD SOFTWARE ENGINEER PROCEDURE: CT CERVICAL SPINE WO CONTRAST, CT THORACIC SPINE WO CONTRAST, CT LUMBAR SPINE WO CONTRAST, DATE/TIME OF EXAM: 09/19/2024 7:32 PM, LOCATION [facility] INDICATION: W19.XXXA: Fall, initial encounter ADDITIONAL CLINICAL [...] DATE/TIME OF EXAM: 09/19/2024 7:32 PM, LOCATION [facility] INDICATION: W19.XXXA: Fall, initial encounter ADDITIONAL CLINICAL [...] endplate compression fractures of the L2 and L1khzueuqom bodies with less than 25% height loss [...] MD on 09/19/2024 7:53 PM Zeinab Taylor CHARGEBACK SPECIALIST-GLASS SMOOTHER CT ORDERABLE S * CT Thoracic Spine Wo Contrast (09/19/2024 7:32 PM LEAD SOFTWARE ENGINEER) Anatomical Region Laterality Modality Spine Computed Tomogra phy 09/19/2024 7:40 PM LEAD SOFTWARE ENGINEER Impressions 09/19/2024 7:53 PM LEAD SOFTWARE ENGINEER IMPRESSION: 1. No evidence of acute fracture in the cervical, thoracic, or lumbar spine. > Interpreting Provider: Jackie Olmedo MD on 09/19/2024 7:53 PM Narrative 09/19/2024 7:53 PM LEAD SOFTWARE ENGINEER PROCEDURE: CT CERVICAL SPINE WO CONTRAST, CT THORACIC SPINE WO CONTRAST, CT LUMBAR SPINE WO CONTRAST, DATE/TIME OF EXAM: 09/19/2024 7:32 PM, LOCATION [facility] INDICATION: W19.XXXA: Fall, initial encounter ADDITIONAL CLINICAL [...] DATE/TIME OF EXAM: 09/19/2024 7:32 PM, LOCATION [facility] INDICATION: W19.XXXA: Fall, initial encounter ADDITIONAL CLINICAL [...] endplate compression fractures of the L2 and T5rsuuqrtcc bodies with less than 25% height loss [...] MD on 09/19/2024 7:53 PM Zeinab Kiddadams CHARGEBACK SPECIALIST-GLASS SMOOTHER CT ORDERABLE S * CT Cervical Spine Wo Contrast (09/19/2024 7:32 PM LEAD SOFTWARE ENGINEER) Only the most recent of2 resultswithin the time period is included. Anatomical Region Laterality Modality Spine Computed Tomogra phy 09/19/2024 7:40 PM LEAD SOFTWARE ENGINEER Impressions 09/19/2024 7:53 PM LEAD SOFTWARE ENGINEER IMPRESSION: 1. No evidence of acute fracture in the cervical, thoracic, or lumbar spine. > Interpreting Provider: Jackie Olmedo MD on 09/19/2024 7:53 PM Narrative 09/19/2024 7:53 PM LEAD SOFTWARE ENGINEER PROCEDURE: CT CERVICAL SPINE WO CONTRAST, CT THORACIC SPINE WO CONTRAST, CT LUMBAR SPINE WO CONTRAST, DATE/TIME OF EXAM: 09/19/2024 7:32 PM, LOCATION [facility] INDICATION: W19.XXXA: Fall, initial encounter ADDITIONAL CLINICAL [...] DATE/TIME OF EXAM: 09/19/2024 7:32 PM, LOCATION [facility] INDICATION: W19.XXXA: Fall, initial encounter ADDITIONAL CLINICAL [...] endplate compression fractures of the L2 and S0dguynpfsw bodies with less than 25% height loss [...] MD on 09/19/2024 7:53 PM Zeinabalexia Taylor CHARGEBACK SPECIALIST-GLASS SMOOTHER CT ORDERABLE S * HELICOBACTER PYLORI ANTIGEN FECES (09/02/2024 12:30 PM LEAD SOFTWARE ENGINEER) Helicobacter pylori Antigen Stool Negative Negative 09/04/2024 1:46 PM LEAD SOFTWARE ENGINEER [facility] ([facility]) Comment: Performed By: [facility] [address] [place] [address] Braille Proofreader: Alfonso Mercado MD, PhD CLIA Number: [id number] Stool STOOL SPECIMEN / Unknown Collection / Unknown 09/02/2024 12:30 PM LEAD SOFTWARE ENGINEER 09/02/2024 12:31 PM LEAD SOFTWARE ENGINEER Bernadette Watson MD LAB - MICROBIOLOGY O RDERABLES [facility] [facility] ([facility]) [address] [place] [address], [facility] * MRI LUMBAR SPINE WO CONTRAST (02/16/2024 [...] DATE/TIME OF EXAM: 02/16/2024 3:33 PM, LOCATION [facility] INDICATION: Z98.1: S/P lumbar fusion ADDITIONAL CLINICAL [...] DATE/TIME OF EXAM: 02/16/2024 3:33 PM, LOCATION [facility] INDICATION: Z98.1: S/P lumbar fusion ADDITIONAL CLINICAL [...] MD on 02/19/2024 8:33 AM Dulce Mclaughlin CHARGEBACK SPECIALIST-GLASS SMOOTHER MR ORDERABLES * CT LUMBAR SPINE W [...] abscess. > Dictated by Raman Anguiano MD (president financial institution) I, Jackie Olmedo MD have personally reviewed and interpreted this examination/study. > Interpreting Provider: Jackie Olmedo MD on 01/31/2024 3:24 AM Narrative 01/31/2024 3:24 AM CDT PROCEDURE: CT LUMBAR SPINE W CONTRAST, DATE/TIME OF EXAM: 01/31/2024 12:58 AM, LOCATION [facility] INDICATION: M54.40: Low back pain with sciatica, [...] CONTRAST, DATE/TIME OF EXAM: 412:58 AM, LOCATION [facility] INDICATION: M54.40: Low back pain with sciatica, [...] Redemonstrated deep Schmorl's nodes at L2 and S2gevphbpl endplates with mild height loss, unchanged. There [...] abscess. > Dictated by Raman Anguiano MD (president financial institution) I, Jackie Olmedo MD have personally reviewed and interpreted this examination/study. > Interpreting Provider: Jackie Olmedo MD on 01/31/2024 3:24 AM [address] MD [address] ORDERABLES * C-REACTIVE PROTEIN (01/30/2024 9:36 PM CDT) Only the most recent of6 resultswithin the time period is included. C-Reactive Protein <0.5 <=0.5 mg/dL 01/30/2024 10:38 PM CDT [facility] Blood BLOOD SPECIMEN / Unknown Venipuncture / Unknown 01/30/2024 9:36 PM CDT 01/30/2024 10:14 PM CDT Jorge Hall MD LAB - CHEMISTRY ORDE RABKRISTIN [address] [address], [facility] [phone] * (ABNORMAL) ERYTHROCYTE SEDIMENTATION RATE (01/30/2024 9:36 PM CDT) Only the most recent of6 resultswithin the time period is included. [facility] Erythrocyte Sedimentation Rate Westergren 29(H) 0 - 20 MM/HR 01/30/2024 10:33 PM CDT [facility] Blood BLOOD SPECIMEN / Unknown Venipuncture / Unknown 01/30/2024 9:36 PM CDT 01/30/2024 10:14 PM CDT Jorge Hall MD LAB - HEMATOLOGY ORD ERABLES [address] [address], [place] [phone] * CULTURE BLOOD (01/28/2024 8:08 AM CDT) Only the most recent of7 resultswithin the time period is included. [facility] Culture No growth day 5 DESHAWN 02/02/2024 10:30 AM CDT [facility] Blood PERIPHERAL BLOOD / Unknown Venipuncture / Unknown 01/28/2024 8:08 AM CDT 01/28/2024 8:15 AM CDT Jeffrey Morales MD LAB - MICROBIOLOGY O RDERABLES Performing Organization Address City/[facility] Co de Phone Number [facility] [address] [place] [address], [facility] [phone] * (ABNORMAL) PTT [facility] (01/28/2024 5:33 AM CDT) Only the most recent of4 resultswithin the time period is included. APTT 22.4(L) 23.0 - 38.4 Seconds 01/28/2024 5:57 AM CDT [facility] Comment:Suggested therapeuti c range for full dose I.V. unfractionated heparin therapy for venous thromboembolism is 71 to 109 seconds. Blood BLOOD SPECIMEN / Unknown Venipuncture / Unknown 01/28/2024 5:33 AM CDT 01/28/2024 5:36 AM CDT Jeffrey Morales MD LAB - COAGULATION OR DERABLES Performing Organization Address [facility] Co de Phone Number [facility] [address] [place] [address], [facility] [phone] * HCG BETA BLOOD QUANTITATIVE (01/28/2024 1:17 AM CDT) Only the most recent of2 resultswithin the time period is included. Pathologist [facility] Healthcare Beta-hCG Total Quantitative 3 mIU/mL 01/28/2024 2:12 AM CDT [facility] Comment: HCG Numeric Result Interpretation: Non- Females: [...] - CHEMISTRY SCOTT MANUEL Performing Organization Address City/[facility]/ZIP Co de Phone Number [place] [address] [place] [address], [facility] [phone] * XR CHEST 2VW (01/07/2024 9:03 PM CDT) Anatomical Region Laterality Modality Chest Radiographic Aliyah ging 01/07/2024 9:25 PM CDT Impressions 01/08/2024 10:46 AM CDT IMPRESSION: No acute pulmonary process. Report dictated by Nathan Michelle MD, (residential door unit installer). Monik Sewell MD have personally reviewed and interpreted this examination/study. > Interpreting Provider: Monik Heredia MD on 01/08/2024 10:46 AM Narrative 01/08/2024 10:46 AM CDT PROCEDURE: XR CHEST 2VW, DATE/TIME OF EXAM: 01/07/2024 9:03 PM, LOCATION [facility] INDICATION: R07.9: Chest pain, unspecified type ADDITIONAL [...] DATE/TIME OF EXAM: 01/07/2024 9:03 PM, LOCATION [facility] INDICATION: R07.9: Chest pain, unspecified type ADDITIONAL [...] process. Report dictated by Nathan Michelle MD, (residential door unit installer). Monik Sewell MD have personally reviewed and interpreted this examination/study. > Interpreting Provider: Monik Heredia MD on 01/08/2024 10:46 AM Zeinab Taylor CHARGEBACK SPECIALIST-GLASS SMOOTHER DIAGNOSTIC I MAGING ORDERABLES * HCG BLOOD QUALITATIVE (01/01/2024 2:54 PM CDT) [facility] HCG Qual Serum Negative Negative 01/01/2024 3:15 PM CDT [facility] Blood BLOOD SPECIMEN / Unknown Venipuncture / Unknown 01/01/2024 2:54 PM CDT 01/01/2024 3:01 PM CDT Narrative [facility] - 01/01/2024 3:15 PM CDT Specimens containing human anti-mouse antibodies may exhibit false positive or false negative results. If qualitative interpretation is inconsistent with clinical evaluation, consider confirmation by an alternative hCG method. Shari Barrera PA-C LAB - CHEMISTRY [place] [id number] * VANCOMYCIN LEVEL RANDOM (12/31/2023 7:27 AM CDT)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 ESTABLISHED FOR RANDOM URINE SPECIMENS. 05/04/2013 10:0 0 PM CDT 05/04/2013 11:47 PM CDT Belen Tesfaye MD LAB - URINE CHEMISTR Y ORDERABLES Performing Organization Address [facility] Co de Phone Number [address] [phone] * CREATININE URINE RANDOM (05/04/2013 10:00 PM CDT) Creatinine Random Urine 186 mg/dL [facility] Comment: REFERENCE RANGE: NONE ESTABLISHED FOR RANDOM URINE SPECIMENS. 05/04/2013 10:0 0 PM CDT 05/04/2013 11:47 PM CDT Belen Tesfaye MD LAB - URINE CHEMISTR Y ORDERABLES Performing Organization Address [facility] [place] [address], [facility] [phone] * CULTURE AFB (05/04/2013 3:30 PM CDT) Only the most recent of2 resultswithin the time period is included. Culture Acid-Fast Bacilli NO GROWTH OF ACID FAST BACILLI AFTER 8 WEEKS. [facility] Bronchial Washings (Lung, left lobe) 05/04/2013 3:30 PM CDT 05/04/2013 5:16 PM CDT Narrative [facility] - 06/29/2013 2:50 PM LEAD SOFTWARE ENGINEER CAFB FROM LUNG WASH Specimen Type->Bronchial washings Riley Sears MD LAB - MICROBIOLOGY O RDERABLES Performing Organization Address [facility] Co de Phone Number [address] [phone] * CULTURE FUNGUS OTHER+FUNGUS SMEAR (05/04/2013 3:30 PM CDT) Only the most recent of2 resultswithin the time period is included. Culture Fungus-Other NO GROWTH FUNGI. [facility] Bronchial Washings (Lung, left lobe) 05/04/2013 3:30 PM CDT 05/04/2013 5:16 PM CDT Narrative [facility] - 06/02/2013 11:53 AM CDT CFUN-OTHER FROM LUNG WASH Specimen Type->Bronchial washings Riley Sears MD LAB - MICROBIOLOGY O RDERABLES Performing Organization Address [facility] Co de Phone Number [address] [phone] * AFB SMEAR (05/04/2013 3:30 PM CDT) Only the most recent of2 resultswithin the time period is included. Acid-Fast Bacilli Smear NO ACID FAST BACILLI SEEN. [facility] Bronchial Washings (Lung, left lobe) 05/04/2013 3:30 PM CDT 05/04/2013 5:16 PM CDT Narrative [facility] - 05/06/2013 5:21 PM CDT AFBS FROM LUNG WASH Specimen Type->Bronchial washings Riley Sears MD LAB - MICROBIOLOGY O RDERABLES Performing Organization Address [facility] [place] [address], [facility] [phone] * FUNGUS SMEAR (05/04/2013 3:30 PM CDT) Only the most recent of2 resultswithin the time period is included. Fungus Smear NO FUNGI OR PNEUMOCYSTIS SEEN. [facility] Bronchial Washings (Lung, left lobe) 05/04/2013 3:30 PM CDT 05/04/2013 5:16 PM CDT Narrative [facility] - 05/06/2013 5:21 PM CDT FUNS FROM LUNG WASH Specimen Type->Bronchial washings Riley Sears MD LAB - MICROBIOLOGY O RDERABLES [facility] [address] [place] [address], [facility] [phone] * VIRAL CULTURE RESPIRATORY (05/04/2013 3:15 PM CDT) Viral Culture Respiratory Deep w/CMV No virus isolated. . [facility] Comment: Performed at: [address] [id number] Scale Adjuster: Emiliano Krishnan MD, Phone: [phone] Preliminary Report: No virus isolated at 4 days. Next report to follow after 7 days. Performed at: [address] [id number] Scale Adjuster: Emiliano Krishnan MD, Phone: [phone] Preliminary Report: No virus isolated at 24 hours. Next report to follow after 4 days. Performed at: [address] [id number] Scale Adjuster: Emiliano Krishnan MD, Phone: [phone] !! EDITED OR CORRECTED RESULTS !! RESULT PREVIOUSLY REPORTED : Preliminary Report: No virus isolated at 24 hours. Next report to follow after 4 days. Performed at: [address] [id number] Scale Adjuster: Emiliano Krishnan MD, Phone: [phone] NOTIFIED [] AT 1120 ON 05/11/13 !! EDITED OR CORRECTED RESULTS !! RESULT PREVIOUSLY REPORTED : Preliminary Report: No virus isolated at 4 days. Next report to follow after 7 days. Performed at: [address] [id number] Scale Adjuster: Emiliano Krishnan MD, Phone: [phone] Preliminary Report: No virus isolated at 24 hours. Next report to follow after 4 days. Performed at: [address] [id number] Scale Adjuster: Emiliano Krishnan MD, Phone: [phone] !! EDITED OR CORRECTED RESULTS !! RESULT PREVIOUSLY REPORTED : Preliminary Report: No virus isolated at 24 hours. Next report to follow after 4 days. Performed at: [address] [id number] Scale Adjuster: Emiliano Krishnan MD, Phone: [phone] NOTIFIED [] AT 1120 ON 05/11/13 NOTIFIED [] AT 0831 ON 05/13/13 Bronchial [place] 05/04/2013 3 :15 PM CDT 05/04/2013 5:16 PM CDT Narrative [facility] - 05/13/2013 8:31 AM CDT VCR FROM LAVAGE FROM [place] SPECIMEN SOURCE? BRONCHIAL BRUSH Riley Sears MD LAB - MICROBIOLOGY O RDERABLES Performing Organization Address [facility] Co de Phone Number [address] [phone] * PATHOLOGY SMEAR BODY FLUID (05/04/2013 3:00 PM CDT) Manual Differential Reviewed CONFIRMED [facility] Comment: THE DIFFERENTIAL HAS BEEN REVIEWED AND ALL RESULTS HAVE BEEN CONFIRMED. REVIEWED BY PATHOLOGIST. HEMOSIDERIN MACROPHAGES ARE SEEN, INDICATIVE OF SOME BLEEDING IN THE REMOTE POST. CORRELATE WITH MICROBIOLOGY. 05/04/2013 3:00 PM CDT 05/04/2013 5:17 PM CDT Riley Sears MD LAB - PATHOLOGY/CYTO LOGY ORDERABLES Performing Organization Address [facility] [place] [address], [facility] [phone] * CULTURE BRONCHOALVEOLAR [place]AV[place] QNT+GRAM STAIN (05/04/2013 3:00 PM CDT) Culture Bronch Alveolar Lavage Quantitative GREATER THAN OR EQUAL TO 10,000 CFU/ML OF RESPIRATORY CHETNA. [facility] Culture Results [facility] Bronchoalveolar Lavage (Lavage) 05/04/2013 3:00 PM CDT 05/04/2013 5:18 PM CDT Narrative [facility] - 05/07/2013 1:57 PM CDT QUBAL FROM LAVAGE FROM [place] NOT WASHINGS Specimen Type->Bronchial washings [place] WRITTEN PER CUP/JL 05/05/13 GRAMSTAIN ADDED PER PROTOCOL/JL 05/05/13 Riley Sears MD LAB - MICROBIOLOGY O RDERAEVIE Performing Organization Address [facility] Co de Phone Number [address] [phone] * GRAM STAIN SMEAR (05/04/2013 3:00 PM CDT) Gram Stain FEW POLYMORPHONUCLEAR CELLS; FEW GRAM POSITIVE COCCI IN PAIRS AND CHAINS SEEN. GRAM STAINS ARE ROUTINELY SCREENED FOR THE PRESENCE OF POLYMORPHONUCLEAR CELLS. [facility] Culture Results [facility] Bronchoalveolar Lavage 05/04 3:00 PM CDT 05/04/2013 5:18 PM CDT Narrative [facility] - 05/05/2013 1:31 PM CDT [place] WRITTEN PER CUP/JL 05/05/13 GRAMSTAIN ADDED PER PROTOCOL/JL 05/05/13 Riley Sears MD LAB - MICROBIOLOGY O RDEMILY Performing Organization Address [facility] Co de Phone Number [address] [phone] * CULTURE LEGIONELLA (05/04/2013 3:00 PM CDT) Culture Legionella NO GROWTH LEGIONELLA SPECIES AFTER ONE WEEK. [facility] Bronchoalveolar Lavage (Lung, left lobe) 05/04/2013 3:00 PM CDT 05/04/2013 5:18 PM CDT Narrative [facility] - 05/12/2013 7:41 AM CDT CLEG FROM LAVAGE FROM [place] Specimen Type->Bronchoalveolar lavage [place] WRITTEN PER CUP/JL 05/05/13 Riley Sears MD LAB - MICROBIOLOGY O RDERABLES Performing Organization Address [facility]/ZIP Co de Phone Number [address] [phone] * CYTOLOGY NON-BILINGUAL INSTRUCTOR PANEL (STL) (05/04/2013 2:31 PM CDT) Only the most recent of3 resultswithin the time period is included. Pathologist [facility] Cytology Non-Table Runner () [facility] Comment: Reference: [id number] Specimen: Bronchial Lavage Clinical History: Lung Infiltrate [...] (teaching) pathologist. Report Dictation performed by Alyson GOODWIN([facility]). Electronically signed 05/06/2013 Final Diagnosis performed by Patricio Brandt MD. Electronically signed 05/06/2013 05/04/2013 2:31 PM CDT 05/05/2013 7:19 AM CDT Narrative [facility] - 05/06/2013 5:00 PM CDT BAL FOR OIL RED O STAIN Riley Sears MD LAB - PATHOLOGY/CYTO LOGY ORDERABLES Performing Organization Address [facility] Co de Phone Number [address] [phone] * OCCULT BLOOD FECES (05/03/2013 1:30 AM CDT) Pathologist [facility] Occult Blood 1 NEGATIVE NEGATIVE [facility] 05/03/2013 1:30 AM CDT 05/03/2013 1:45 AM CDT Arnold Mireles MD LAB - BODY FLUID ORD ERABLES Performing Organization Address City/[facility]/[place] [address], [place] [phone] * CULTURE SPUTUM+GRAM STAIN (05/01/2013 2:38 PM CDT) Gram Stain FEW EPITHELIAL CELLS, MANY GRAM POSITIVE COCCI IN PAIRS, CHAINS, AND CLUSTERS, RARE GRAM NEGATIVE BACILLI AND GRAM NEGATIVE DIPLOCOCCI SEEN. GRAM STAINS ARE ROUTINELY SCREENED FOR THE PRESENCE OF POLYMORPHONUCLE AR CELLS. [facility] Culture Results [facility] Culture Sputum and Smear GROWTH OF RESPIRATORY CHETNA. HEAVY GROWTH OF GRAM NEGATIVE BACILLI BEING IDENTIFIED. GRAM NEGATIVE BACILLI IDENTIFIED [KLEBSIELLA PNEUMONIAE]. [facility] Culture Results [facility] Organism ID KLEBSIELLA PNEUMONIAE [facility] Comment:KLEBSIELLA PNEUMONIA E Sputum specimen (specimen) 05/01/2013 2:38 PM CDT 05/01/2013 3:39 PM CDT Narrative [facility] - 05/03/2013 11:03 AM CDT Specimen Type->Sputum [...] Tesfaye MD LAB - MICROBIOLOGY O RDERABLES [facility] [address] [place] [address], [facility] [phone] * PFT-LAB (05/01/2013 2:29 PM CDT) Impressions [facility] - 05/01/2013 2:[address] [facility] DEPARTMENT OF PULMONARY, CRITICAL CARE, AND SLEEP [...] note for further details Olivier Fine MD Airline Captain Director Pulmonary Hypertension program Division of Pulmonary ,Critical care and Sleep medicine [facility]. Narrative Procedure Note Provider, MD Nathan - 01/10/[address] [facility] DEPARTMENT OF PULMONARY, CRITICAL CARE, AND SLEEP MEDICINE PULMONARY FUNCTION TESTS Bharat Lopes [place] 05/02/2013 INTERPRETATION Please see technologist's comments mentioned [...] note for further details Olivier Fine MD Airline Captain Director Pulmonary Hypertension program Division of Pulmonary ,Critical care and Sleep medicine [facility]. Belen Tesfaye MD RESPIRATORY THERAPY ORDERABLES [facility] * CHROMATIN ANTIBODY (04/30/2013 7:30 PM CDT) [facility] Antichromatin Antibody IgG <0.2 0.0 - 0.9 AI [facility] Comment: Performed at: - [address] [id number] Scale Adjuster: Emiliano Krishnan MD, Phone: [phone] Performed at: [facility] [address] [id number] Scale Adjuster: Best Macdonald PhD, Phone: [phone] 04/30/2013 7:30 PM CDT 04/30/2013 8:09 PM CDT [facility] - 05/04/2013 11:22 AM CDT HT [id number] 1 TUBE Belen Tesfaye MD LAB - SEROLOGY ORDER DAX Performing Organization Address City/[facility]/ZIP Co de Phone Number [address] [phone] * DENISE BLOOD SCREEN (04/30/2013 7:30 PM CDT) [facility] DENISE NONE DETECTED NONE DETECT [facility] Venous blood specimen (specimen) 04/30/2013 7:30 PM CDT 04/30/2013 8:09 PM CDT Narrative [facility] - 05/04/2013 2:49 PM CDT HT [id number] 1 TUBE Belen Tesfaye MD LAB - CHEMISTRY ORDE RABLES Performing Organization Address City/[facility]/ZIP Co de Phone Number [address] [phone] * LUPUS ANTICOAGULANT PANEL (04/30/2013 7:30 PM CDT) [facility] APTT 29.5 24.0 - 38.0 SECONDS [facility] PT 12.2 12.1 - 14.8 SECONDS [facility] INR 0.9 [facility] [place] Buffer 53.0 SECONDS [facility] [place] Phospholipid 49.3 SECONDS [facility] [place] [employer] 3.7 <9.0 SECONDS [facility] Interpretation [place] NEGATIVE NEGATIVE [facility] Comment: Up to 15-20% of patients with [...] PM CDT 04/30/2013 8:09 PM CDT Narrative [facility] - 05/01/2013 10:08 AM CDT HT [id number] 1 TUBE Belen Tesfaye MD LAB - HEMATOLOGY ORD ERABLES Performing Organization Address City/[facility]/ZIP Co de Phone Number [address] [phone] * ELENA (SM) ANTIBODY FRANKO (04/30/2013 7:30 PM CDT) FRANKO Elena (SM) Antibody 1.3 0.0 - 19.9 Units [facility] Comment: REFERENCE RANGE/INTERPRETATION < 20.0 Units: Negative 20.0 - 39.0 Units: Weak Positive > 39.0 Units: Positive 04/30/2013 7:30 PM CDT 04/30/2013 8:09 PM CDT Narrative [facility] - 05/04/2013 2:49 PM CDT HT [id number] 1 TUBE Belen Tesfaye MD LAB - CHEMISTRY ORDE KALEB [address] [phone] * INFORMATION SERVICES VICE PRESIDENT ANTIBODY (04/30/2013 7:30 PM CDT) Ribonucleic Protein Antibody 1.7 0.0 - 19.9 Units [facility] Comment: REFERENCE RANGE/INTERPRETATION < 20.0 Units: Negative 20.0 - 39.0 Units: Weak Positive > 39.0 Units: Positive 04/30/2013 7:30 PM CDT 04/30/2013 8:09 PM CDT Narrative [facility] - 05/06/2013 1:50 PM CDT HT [id number] 1 TUBE Belen Tesfaye MD LAB - CHEMISTRY [place] [place] Performing Organization Address City/[facility]/ZIP Co de Phone Number [address] [phone] * RHEUMATOID FACTOR BLOOD QUANTITATIVE (04/30/2013 7:30 PM CDT) Rheumatoid Factor < 15 <30 IU/mL [facility] Venous blood specimen (specimen) 04/30/2013 7:30 PM CDT 04/30/2013 8:10 PM CDT Belen Tesfaye MD LAB - CHEMISTRY [place] Performing Organization Address [facility] [place] [address], [facility] [phone] * (ABNORMAL) COMPLEMENT TOTAL (04/30/2013 7:30 PM CDT) Pathologist [facility] Complement Total CH50 < 12(L) 22 - 60 U/mL [facility] Venous blood specimen (specimen) 04/30/2013 7:30 PM CDT 04/30/2013 8:09 PM CDT Narrative [facility] - 05/04/2013 3:31 PM CDT HT [id number] 1 TUBE Belen Tesfaye MD LAB - CHEMISTRY [place] Performing Organization Address City/[facility]/ZIP Co de Phone Number [address] [phone] * SS-B (SJOGRENS'S) ANTIBODY (04/30/2013 7:30 PM CDT) SS-B LA Antibody 0.7 0.0 - 19.9 Units [facility] Comment: REFERENCE RANGE/INTERPRETATION < 20.0 Units: Negative 20.0 - 39.0 Units: Weak Positive > 39.0 Units: Positive Venous blood specimen (specimen) 04/30/2013 7:30 PM CDT 04/30/2013 8:09 PM CDT Narrative [facility] - 05/04/2013 2:49 PM CDT HT [id number] 1 TUBE Belen Tesfaye MD LAB - CHEMISTRY [place] [address] [phone] * SS-A (SJOGREN'S) ANTIBODY (04/30/2013 7:30 PM CDT) SS-A Antibody 0.6 0.0 - 19.9 Units [facility] Comment: REFERENCE RANGE/INTERPRETATION < 20.0 Units: Negative 20.0 - 39.0 Units: Weak Positive > 39.0 Units: Positive Venous blood specimen (specimen) 04/30/2013 7:30 PM CDT 04/30/2013 8:09 PM CDT [facility] - 05/04/2013 2:49 PM CDT HT [id number] 1 TUBE Belen Tesfaye MD LAB - CHEMISTRY [place] [address] [phone] * SCLERODERMA 70 (SCL) ANTIBODY (04/30/2013 7:30 PM CDT) SCL-70 Antibody 1.1 0.0 - 19.9 Units [facility] Comment: REFERENCE RANGE/INTERPRETATION < 20.0 Units: Negative 20.0 - 39.0 Units: Weak Positive > 39.0 Units: Positive 04/30/2013 7:30 PM CDT 04/30/2013 8:09 PM CDT Narrative [facility] - 05/04/2013 2:49 PM CDT HT [id number] 1 TUBE Belen Tesfaye MD LAB - CHEMISTRY ORDJulio MANUEL Performing Organization Address City/[facility]/ZIP Co de Phone Number [address] [phone] * DNA ANTIBODY DOUBLE STRANDED (04/30/2013 7:30 PM CDT) Anti-dsDNA Quantitative 4 0 - 29 IU/mL [facility] Comment: INTERPRETATION/REFERENCE RANGE 0 - 29 IU/mL: NEGATIVE 30 - 75 IU/mL: BORDERLINE >75 IU/mL: POSITIVE 04/30/2013 7:30 PM CDT 04/30/2013 8:09 PM CDT Narrative [facility] - 05/04/2013 2:49 PM CDT HT [id number] 1 TUBE Belen Tesfaye MD LAB - HEMATOLOGY ORD ERABLES Performing Organization Address [facility]/ZIP Co de Phone Number [address] [phone] * ALDOLASE (04/30/2013 7:30 PM CDT) Aldolase 6.8 1.2 - 7.6 U/L [facility] Comment: Performed at: - [address] [id number] Scale Adjuster: Best Macdonald PhD, Phone: [phone] 04/30/2013 7:30 PM CDT 04/30/2013 8:09 PM CDT Narrative [facility] - 05/04/2013 3:31 PM CDT HT [id number] 1 TUBE Belen Tesfaye MD LAB - CHEMISTRY ORDJulio MANUEL Performing Organization Address [facility]/ZIP Co de Phone Number [address] [phone] * CYCLIC CITRUL PEPTIDE AB IGG (CCP) (04/30/2013 7:30 PM CDT) CCP Antibody IgG 1.5 0.5 - 5.0 U/mL [facility] 04/30/2013 7:30 PM CDT 04/30/2013 8:10 PM CDT Belen Tesfaye MD LAB - CHEMISTRY SCOTT [place]UEL Performing Organization Address [facility] Co de Phone Number [address] [phone] * QUANTIFERON TB-GOLD (04/30/2013 7:30 PM CDT) QuantiFERON TB Gold . [facility] Comment: Test cancelled at client's request. Cancell [...] PM CDT 04/30/2013 8:09 PM CDT Narrative [facility] - 05/06/2013 11:30 AM CDT [id number] 1 TUBE Belen Tesfaye MD LAB - CHEMISTRY [place]OTT [place]UEL Performing Organization Address [facility]/ZIP Co de Phone Number [address] [address], [place] [phone] * COMPLEMENT C4 (04/30/2013 7:30 PM CDT) Complement C4 30 15 - 57 mg/dL [facility] Venous blood specimen (specimen) 04/30/2013 7:30 PM CDT 04/30/2013 8:09 PM CDT Narrative [facility] - 04/30/2013 9:58 PM CDT HT [id number] 1 TUBE Belen Tesfaye MD LAB - SEROLOGY ORDER DAX [address] [phone] * (ABNORMAL) LDH BLOOD (04/30/2013 7:30 PM CDT) LDH Total 352(H) 125 - 243 Units/L [facility] Serum 04/30/2013 7:30 PM CDT 04/30/2013 8:09 PM CDT Narrative [facility] - 04/30/2013 9:58 PM CDT HT [id number] 1 TUBE Belen Tesfaye MD LAB - CHEMISTRY ORDE KALEB [address] [phone] * CK BLOOD (04/30/2013 7:30 PM CDT) CK Total 56 30 - 200 Units/L [facility] Serum 04/30/2013 7:30 PM CDT 04/30/2013 8:09 PM CDT Narrative [facility] - 04/30/2013 9:58 PM CDT HT [id number] 1 TUBE Belen Tesfaye MD LAB - CHEMISTRY [place] [address], [facility] [phone] * COMPLEMENT C3 (04/30/2013 7:30 PM CDT) Complement C3 128 82 - 193 mg/dL [facility] Venous blood specimen (specimen) 04/30/2013 7:30 PM CDT 04/30/2013 8:09 PM CDT Narrative [facility] - 04/30/2013 9:58 PM CDT HT [id number] 1 TUBE Belen Tesfaye MD LAB - CHEMISTRY SCOTT MANUEL Performing Organization Address [facility] [facility] Co de Phone Number [address] [phone] * NEUTROPHIL CYTOPLASMIC ANTIBODY (04/30/2013 12:50 PM CDT) Cytoplasmic Neutrophilic Antibody <1:20 Neg:<1:20 titer [facility] p-ANCA <1:20 Neg:<1:20 titer [facility] Comment: The presence of positive fluorescence exhibiting P-ANCA or C-ANCA patterns alone is not specific for the diagnosis of Irene's Granulomatosis (WG) or microscopic polyangiitis. Decisions about treatment should not be based solely on ANCA IFA results. The [employer] ANCA [employer] Consensus recommends follow up testing of positive sera with both AK- 3 and MPO-ANCA enzyme immunoassays. As many as 5% serum samples are positive only by EIA. Ref. AM J Clin Pathol 1999;111:507-513. Atypical p-ANCA <1:20 Neg:<1:20 titer [facility] Comment: The atypical pANCA pattern has been observed in a significant percentage of patients with ulcerative colitis, primary sclerosing cholangitis and autoimmune hepatitis. Performed at: - Lab[address] [id number] Scale Adjuster: Best Macdonald PhD, Phone: [phone] Venous blood specimen (specimen) 04/30/2013 12:50 PM CDT 04/30/2013 1:10 PM CDT Belen Tesfaye MD LAB - CHEMISTRY [facility] Performing Organization Address [facility]/[place] [address], [place] [phone] * MPO/AK 3 AUTOANTIBODIES PANEL (04/30/2013 12:50 PM CDT) Myeloperoxidase Antibody <9.0 0.0 - 9.0 U/mL [facility] Serine PR3 (ANCA) <3.5 0.0 - 3.5 U/mL [facility] Comment: Performed at: [address] [id number] Scale Adjuster: Emiliano Krishnan MD, Phone: [phone] 04/30/2013 12:5 0 PM CDT 04/30/2013 1:10 PM CDT Belen Tesfaye MD LAB - CHEMISTRY [place] [address] [phone] * TROPONIN I (04/30/2013 10:30 AM CDT) Only the most recent of3 resultswithin the time period is included. Pathologist [facility] Troponin I < 0.010 <0.032 ng/mL [facility] Comment: NOTE Any condition resulting in myocardial [...] AM CDT 04/30/2013 11:16 AM CDT Narrative [facility] - 04/30/2013 12:00 PM CDT IS PATIENT ON HEPARIN? (Y OR N) N Belen Tesfaye MD LAB - CHEMISTRY [place] Performing Organization Address City/[facility]/ZIP Co de Phone Number [address] [phone] * CK + CKMB PANEL (04/30/2013 10:30 AM CDT) Only the most recent of2 resultswithin the time period is included. CK Total 52 30 - 200 Units/L [facility] CK-MB 0.6 0.0 - 6.6 ng/mL [facility] Comment: CKMB Reference Range 6.6 ng/mL or [...] AM CDT 04/30/2013 11:16 AM CDT Narrative [facility] - 04/30/2013 12:00 PM CDT IS PATIENT ON HEPARIN? (Y OR N) N Belen Tesfaye MD LAB - CHEMISTRY [facility] Organization Address City/State/ZIP Co de Phone Number [address] [phone] * ECHO W DOPPLER AND COLOR FLOW (04/30/2013 12:00 AM CDT) Anatomical Region Laterality Modality Other 04/30/2013 Belen Tesfaye MD ECHOCARDIOGRAPHY RAD IANT * HEMOGLOBIN A1C (04/29/2013 8:30 AM CDT) Pathologist [facility] Hemoglobin A1c 5.6 4.4 - 6.3 % [facility] Estimated Average Glucose 114 mg/dL [facility] Blood specimen (specimen) 04/29/2013 8:30 AM CDT 04/29/2013 9:00 AM CDT Narrative [facility] - 04/29/2013 2:07 PM CDT IS PATIENT ON HEPARIN? (Y OR N) N Arnold Mireles MD LAB - CHEMISTRY [place] Performing Organization Address [facility]/ZIP Co de Phone Number [address] [phone] * RETIC COUNT (04/29/2013 8:30 AM CDT) Reticulocyte % 2.3 0.4 - 2.5 % [facility] Comment: * PLEASE NOTE NEW REFERENCE RANGE * Reticulocyte Absolute 0.10 0.02 - 0.13 10^6/uL [facility] Comment: * PLEASE NOTE NEW REFERENCE RANGE * Venous blood specimen (specimen) 04/29/2013 8:30 AM CDT 04/29/2013 9:00 AM CDT Narrative [facility] - 04/29/2013 9:18 AM CDT IS PATIENT ON HEPARIN? (Y OR N) N Arnold Mireles MD LAB - HEMATOLOGY [facility] Performing Organization Address City/[facility]/ZIP Co de Phone Number [address] [phone] * CT ANGIO CHEST PULM EMBOLISM (04/29/2013 [...] segments with superimposed degenerative change. Procedure Note Bassam Jackson MD - 11/03/2017 Exam: CT Chest [...] hours on04/29/2013 This report was approved by Charanjit Puente M.D. on 04/29/2013 10:41AM . I, Dr. BASSAM JACKSON M.D. have personally reviewed and interpreted thisexamination/study. This report was electronically signed by BASSAM JACKSON M.D. on04/29/2013 3:27 PM [address] ORDERABLES * LIPASE BLOOD (04/28/2013 9:55 PM CDT) Lipase 32 8 - 78 Units/L [facility] Serum 04/28/2013 9:55 PM CDT 04/28/2013 10:18 PM CDT Narrative [facility] - 04/28/2013 10:52 PM CDT IS PATIENT ON HEPARIN? (Y OR N) N Emiliano Calabrese LAB - CHEMISTRY [place] [address], [facility] [phone] * GROSS + MICRO EXAM (07/24/2001 7:33 AM LEAD SOFTWARE ENGINEER) Only the most recent of2 resultswithin the time period is included. Result CASE NUMBER [id number] Comment: ORDERING PHYSICIAN CINDI PATTONDENISE Swartz SPECIMEN [...] cm. to 1.5 cm in greatest dimension. Surveyor Geodetic sections are submitted as follows umbilical cord [...] chorioamnionitis, mild. C. Three vessel umbilical cord. Bead Supervisor bk Pathologist Santi Nichols M.D. [place]. 07/25/2001 1525 <1> CPT code 69769 MISCELLANEOUS SAMPLES / Unknown 07/24/2001 7:33 AM LEAD SOFTWARE ENGINEER 07/24/2001 7:33 AM LEAD SOFTWARE ENGINEER Historical Provider MD LAB - PATHOLOGY/C YTOLOGY ORDERABLES Care Teams Insurance Collector Relationship Specialty Start Date End Date Brett Chávez MD [address] [id number] PCP - General 08/23/22 Ally Chambers, RN Pelt Grader 09/12/16
--- OUTSIDE RECORDS SUMMARY | 2024-10-13 01:56 | XMS_ITS | Encounter Summary ---
Author Organization [facility] Address [address] [place] [address] Phone Care Team Providers Care Construction Project Engineer Name Role Phone Brett Chávez MD Primary Care Provider [phone] Cedric Martinez MD Primary Care Provider [phone] Sue Snow MD Primary Care Provider [phone] Jn Polo PAC Unavailable [phone] Eli Abbott MD Primary Care Provider [phone] Reason for Visit * Reason Comments Medication Refill Encounter Details Date Type Department Care Team (Late st Contact Info) Description 01/27/2020 Refill [facility] PULMONOLOG[facility] [address] [place] [phone] Cruz Velasquez MD [address] [place] [address] Medication Refill Social History Tobacco [...] 10/13/2024 2:00 PM CDT Appointment [facility] MRI [address] [place] [address] Jn Polo, PAC [address] [facility] [address] [place] [address] Discharge Disposition: Discharged to home or Selfcare documented as of this encounter Visit Diagnoses Not on filedocumented in this encounter Additional Health Concerns Infection Onset Date Last Indicated Resolved Time COVID - 19 08/01/2020 08/01/2020 08/05/2020 1:58 PM GAME DESIGNER/CREATIVE DIRECTOR COVID - 19 08/17/2021 08/17/2021 08/20/2021 6:06 AM GAME DESIGNER/CREATIVE DIRECTOR COVID - 19 Confirmed 08/17/2021 08/17/2021 022 12:16 AM GAME DESIGNER/CREATIVE DIRECTOR COVID - 19 07/26/2022 09/17/2022 09/17/2022 8:04 AM GAME DESIGNER/CREATIVE DIRECTOR COVID - 19 07/20/2024 07/20/2024 07/20/2024 9:02 PM GAME DESIGNER/CREATIVE DIRECTOR documented as of this encounter Care Teams Construction Project Engineer Relationship Specialty Start Date End Date Brett Chávez MD [address] [place] [address] PCP - General Family Medicine 06/12/15 03/25/23 Cedric Martinez MD [address] [place] [address] [address] [place] [address] PCP - General Family Medicine 03/26/23 02/04/24 Sue Snow MD [address] [place] [address] [place] [address] PCP - General Internal Medicine 02/05/24 09/02/24 Eli Abbott MD [address] [place] [address] PCP - General Family Medicine 09/03/24 Jn Polo PAC [address] [place] [address] Physician Parts Salesman Physician Parts Salesman 07/13/24 documented as of this encounter
--- OUTSIDE RECORDS SUMMARY | 2024-10-13 01:56 | XMS_ITS | Referral Summary ---
Author Organization [facility] Address [address] [place] [address] Care Team Providers Care Collection Specialist Name Role Phone Ally Chambers RN Unavailable [phone] Brett Chávez MD Primary Care Provider [phone] [facility],non-owned Affiliates and Associated Physician Practices is amultiple site organization consisting of ambulatory clinics and hospital sitesin [place], [place], [place] and [place]. This disclosure is being madepursuant to the Care Everywhere program and may not contain all information available regarding this patient. Last updated 18.[facility] Encounters Date Type Department Care Team Description 10/08/2024 5:40 PM WINDOWS SYSTEMS ARCHITECT - 10/09/2024 5:57 AM WINDOWS SYSTEMS ARCHITECT Hospital Encounter [facility] EMERGENCY DEPARTMENT [address] [place] [phone] Bronson Shaw MD Mayer, Joshua C, DO Hematemesis with nausea (Primary Dx); History of Janell-en-Y gastric bypass; History of peptic ulcer disease; Upper GI bleed Discharge Disposition: Left Against Medical Advice/Discontinued Care 10/08/2024 Travel 09/19/2024 Travel 09/19/2024 7:35 PM WINDOWS SYSTEMS ARCHITECT - 09/19/2024 8:23 PM WINDOWS SYSTEMS ARCHITECT Emergency [facility] EMERGENCY DEPARTMENT [address] [place] [address] [phone] Christiano Otto MD Left hip pain; Fall, initial encounter; Musculoskeletal pain Discharge Disposition: Home or Self Care 09/14/2024 Travel 09/14/2024 11:30 AM WINDOWS SYSTEMS ARCHITECT Office Visit [facility] - Neurosurgery [facility] [place] [phone] Fahad Monzon MD Chronic bilateral low back [...] Active midazolam (Nayzilam) 5 MG/0.1ML nasal spray [place] 0.1 mL into the nose as needed for Seizures (Only if seizure occurres) 03/05/2024 Active vitamin D, ergocalciferol, (Drisdol) 1.25 MG (28727 UT) capsule Take 1 (one) capsule by [...] Recorded Patient Health Questionnaire-2 Score 0 04/27/2024 [facility] - [...] place to sleep or slept in a fci (including now)? Patient declined 12/13/2023 Sex and Gender Information Value Date Recorded Sex Assigned at Not on file Gender Identity Not on file Sexual Orientation Not on file Last Filed Vital Signs Vital Sign Reading Time Taken Comments Blood Pressure 103/63 10/09/2024 5:00 AM WINDOWS SYSTEMS ARCHITECT Pulse 62 10/09/2024 5:00 AM WINDOWS SYSTEMS ARCHITECT Temperature 36 C (96.8 F) 10/08/2024 2:39 PM WINDOWS SYSTEMS ARCHITECT Respiratory Rate 18 10/09/2024 5:00 AM WINDOWS SYSTEMS ARCHITECT Oxygen Saturation 93% 10/09/2024 5:00 AM WINDOWS SYSTEMS ARCHITECT Inhaled Oxygen Concentration - - Weight 108.9 kg (240 lb) 10/08/2024 2:39 PM WINDOWS SYSTEMS ARCHITECT Height 190.5 cm (6' 3 ) 10/08/2024 2:39 PM WINDOWS SYSTEMS ARCHITECT Body Mass Index 30 10/08/2024 2:39 PM WINDOWS SYSTEMS ARCHITECT Functional Status Functional Status Response Date of [...] Office Visit [facility] - Neurology [address] [place] [address], [place] [address] Charanjit Jackson MD [address] [place] [address] [place] [phone] Procedures Procedure Name Priority Date/Time Associated Diagnosis Comments CARDIAC EKG ORDER 10/12/2024 1:0 3 PM CDT CBC W AUTO DIFFERENTIAL STAT 10/09/2024 2:19 AM WINDOWS SYSTEMS ARCHITECT MAGNESIUM BLOOD STAT 10/09/2024 2:19 AM WINDOWS SYSTEMS ARCHITECT PHOSPHORUS BLOOD STAT 10/09/2024 2:19 AM WINDOWS SYSTEMS ARCHITECT BASIC METABOLIC PANEL (CALCIUM TOTAL) STAT 10/09/2024 2:19 AM W[employer]OWS SYSTEMS [address] CT NECK SOFT TISSUE W CONT STAT 10/08/2024 7:44 PM WINDOWS SYSTEMS ARCHITECT Hematemesis with nausea CT CHEST ABDOMEN PELVIS W CONT STAT 10/08/2024 7:44 PM WINDOWS SYSTEMS ARCHITECT Hematemesis with nausea HGB HCT PANEL STAT 10/08/2024 7:10 PM WINDOWS SYSTEMS ARCHITECT SARS-COV-2 (COVID-19)+INFLU A+B PCR RAPID STAT 10/08/2024 7:09 PM WINDOWS SYSTEMS ARCHITECT TYPE + SCREEN PANEL STAT 10/08/2024 3 :25 PM WINDOWS SYSTEMS ARCHITECT PT-INR [facility] STAT 10/08/2024 3:25 PM WINDOWS SYSTEMS ARCHITECT COMPREHENSIVE METABOLIC PANEL STAT 10/08/2024 3:25 PM WINDOWS SYSTEMS ARCHITECT CBC W AUTO DIFFERENTIAL STAT 10/08/2024 3:25 PM WINDOWS SYSTEMS ARCHITECT XR KNEE RIGHT 3VW STAT 09/19/2024 7:4 8 PM WINDOWS SYSTEMS ARCHITECT Left hip pain XR PELVIS W LEFT HIP 2VW STAT 09/19/2024 7:47 PM WINDOWS SYSTEMS ARCHITECT Left hip pain CT CERVICAL SPINE WO CONTRAST STAT 09/19/2024 7:32 PM WINDOWS SYSTEMS ARCHITECT Fall, initial encounter CT THORACIC SPINE WO CONTRAST STAT 09/19/2024 7:32 PM WINDOWS SYSTEMS ARCHITECT Fall, initial encounter CT LUMBAR SPINE WO CONTRAST STAT 09/19/2024 7:32 PM WINDOWS SYSTEMS ARCHITECT Fall, initial encounter HELICOBACTER PYLORI ANTIGEN FECES Routine 09/02/2024 12:30 PM WINDOWS SYSTEMS ARCHITECT H. pylori infection HEPATITIS SCREEN ACUTE Routine 3 5:15 AM CDT from Last 3 Months or Most Recently Relevant to Health Maintenance Results * CARDIAC EKG ORDER (10/12/2024 1:03 PM CDT) Narrative 10/12/2024 1:03 PM CDT Ordered by an unspecified provider. Scanned Document CARDIAC SERVICES ORD ERABLES * (ABNORMAL) CBC W AUTO DIFFERENTIAL (10/09/2024 2:19 AM WINDOWS SYSTEMS ARCHITECT) Only the most recent of2 resultswithin the time period is included. WBC 5.3 4.0 - 10.7 x10E9/L 10/09/2024 2:32 AM [facility] RBC Count 4.21 3.90 - 5.20 x10E12/L 10/09/2024 2:32 AM [facility] Hemoglobin 10.0(L) 11.9 - 15.8 g/dL 10/09/2024 2:32 AM [facility] Hematocrit 32.2(L) 34.8 - 46.1 % 10/09/2024 2:32 AM [facility] MCV 76.5(L) 80.0 - 98.0 fL 10/09/2024 2:32 AM [facility] MCH 23.8(L) 26.7 - 33.6 pg 10/09/2024 2:32 AM [facility] MCHC 31.1(L) 31.7 - 36.3 g/dL 10/09/2024 2:32 AM [facility] RDW-CV 19.6(H) 11.3 - 14.8 % 10/09/2024 2:32 AM [facility] Platelet Count 340 150 - 420 x10E9/L 10/09/2024 2:32 AM [facility] MPV 9.3 7.8 - 11.4 fL 10/09/2024 2:32 AM [facility] Neutrophil % 73.3 41.0 - 74.0 % 10/09/2024 2:32 AM [facility] Lymphocyte % 20.8 17.0 - 47.0 % 10/09/2024 2:32 AM [facility] Monocyte % 4.3 3.0 - 11.0 % 10/09/2024 2:32 AM [facility] Eosinophil % 0.6 0.0 - 7.0 % 10/09/2024 2:32 AM [facility] Basophil % 0.6 0.0 - 1.6 % 10/09/2024 2:32 AM [facility] Immature Granulocytes % 0.4 0.0 - 1.0 % 10/09/2024 2:32 AM [facility] Neutrophil Absolute 3.88 1.60 - 7.50 x10E9/L 10/09/2024 2:32 AM [facility] Lymphocyte Absolute 1.10 1.00 - 4.40 x10E9/L 10/09/2024 2:32 AM [facility] Monocyte Absolute 0.23 0.15 - 1.00 x10E9/L 10/09/2024 2:32 AM [facility] Eosinophil Absolute 0.03 0.00 - 0.60 x10E9/L 10/09/2024 2:32 AM [facility] Basophil Absolute 0.03 0.00 - 0.13 x10E9/L 10/09/2024 2:32 AM [facility] Blood BLOOD SPECIMEN / Unknown Venipuncture / Unknown 10/09/2024 2:19 AM WINDOWS SYSTEMS ARCHITECT 10/09/2024 2:23 AM [facility] Nilesh Krause DO LAB - HEMATOLOGY ORD ERABLES [facility] [address] [place] [address], [facility] [phone] * (ABNORMAL) BASIC METABOLIC PANEL (CALCIUM TOTAL) (10/09/2024 2:19 AM [facility]) BUN 9 7 - 26 mg/dL 10/09/2024 2:48 AM [facility] Creatinine 0.60 0.56 - 0.96 mg/dL 10/09/2024 2:48 AM [facility] Sodium 140 136 - 145 mmol/L 10/09/2024 2:48 AM [facility] Potassium 4.4 3.5 - 4.5 mmol/L 10/09/2024 2:48 AM [facility] Chloride 110(H) 98 - 107 mmol/L 10/09/2024 2:48 AM [facility] CO2 21(L) 22 - 29 mmol/L 10/09/2024 2:48 AM [facility] Glucose 104(H) 70 - 99 mg/dL 10/09/2024 2:48 AM [facility] Calcium 8.4 8.4 - 10.2 mg/dL 10/09/2024 2:48 AM [facility] Anion Gap 9 6 - 16 10/09/2024 2:48 AM [facility] BUN/Creatinine Ratio 15 7 - 23 10/09/2024 2:48 AM [facility] Osmolality Calculated 289 275 - 295 mOsm/kg 10/09/2024 2:48 AM [facility] eGFR by CKD-EPI >90 >=90 mL/min/1.7 3 m2 10/09/2024 2:48 AM [facility] Blood BLOOD SPECIMEN / Unknown Venipuncture / Unknown 10/09/2024 2:19 AM WINDOWS SYSTEMS ARCHITECT 10/09/2024 2:23 AM [facility] Nilesh Krause DO LAB - CHEMISTRY GUIE KALEB [facility] [address] [place] [address], [facility] [phone] * PHOSPHORUS BLOOD (10/09/2024 2:19 AM [facility]) Phosphorus 4.4 2.9 - 5.1 mg/dL 10/09/2024 2:48 AM [facility] Blood BLOOD SPECIMEN / Unknown Venipuncture / Unknown 10/09/2024 2:19 AM WINDOWS SYSTEMS ARCHITECT 10/09/2024 2:23 AM WINDOWS SYSTEMS ARCHITECT Nilesh Krause DO LAB - CHEMISTRY [facility] [address] [address], [place] [phone] * MAGNESIUM BLOOD (10/09/2024 2:19 AM WINDOWS SYSTEMS ARCHITECT) Magnesium 1.9 1.6 - 2.6 mg/dL 10/09/2024 2:48 AM WINDOWS SYSTEMS ARCHITECT [facility] Blood BLOOD SPECIMEN / Unknown Venipuncture / Unknown 10/09/2024 2:19 AM WINDOWS SYSTEMS ARCHITECT 10/09/2024 2:23 AM WINDOWS SYSTEMS ARCHITECT Nilesh Krause DO LAB - CHEMISTRY [facility] [place] Performing Organization Address City/[facility]/ZIP Co de Phone Number [address] [address], [place] [phone] * CT Chest Abdomen Pelvis W Cont (10/08/2024 7:44 PM WINDOWS SYSTEMS ARCHITECT) Anatomical Region Laterality Modality Chest, Abdomen, Pelvis Computed Tomography 10/08/2024 7:51 PM WINDOWS SYSTEMS ARCHITECT Impressions 10/08/2024 10:55 PM WINDOWS SYSTEMS ARCHITECT Impression: 1.Postoperative appearance of Janell-en-Y gastric bypass. [...] 10/08/2024 10:55 PM Narrative 10/08/2024 10:55 PM WINDOWS SYSTEMS ARCHITECT Procedure Information DATE: 10/08/2024 7:45 PM EXAMINATION: [...] Soft Tissue W Cont (10/08/2024 7:44 PM WINDOWS SYSTEMS ARCHITECT) Anatomical Region Laterality Modality Head Computed Tomogra phy 10/08/2024 8:01 PM WINDOWS SYSTEMS ARCHITECT Impressions 10/08/2024 8:53 PM WINDOWS SYSTEMS ARCHITECT IMPRESSION: 1.No evidence of soft tissue swelling, mass or acute pathology in the neck. 2.There is no evidence of abscess, pneumomediastinum or soft tissue air. The report is dictated by Diana Real MD (optometrist president/practice owner) Carlos Sewell MD have personally reviewed and interpreted this examination/study. > Interpreting Provider: Carlos Carrera MD on 10/08/2024 8:53 PM Narrative 10/08/2024 8:53 PM WINDOWS SYSTEMS ARCHITECT PROCEDURE: CT NECK SOFT TISSUE W CONT, DATE/TIME OF EXAM: 10/08/2024 7:45 PM, LOCATION [facility] INDICATION: R11.14: Bilious vomiting with nausea [...] CONT, DATE/TIME OF EXAM: 57:45 PM, LOCATION [facility] INDICATION: R11.14: Bilious vomiting with nausea [...] report is dictated by Diana Real MD (optometrist president/practice owner) I, Carlos Carrear MD have personally reviewed and interpreted this examination/study. > Interpreting Provider: Carlos Carrera MD on 10/08/2024 8:53 PM Bronson Shaw MD CT ORDERABLES * (ABNORMAL) HGB HCT PANEL (10/08/2024 7:10 PM WINDOWS SYSTEMS ARCHITECT) [facility] Hemoglobin 10.9(L) 11.9 - 15.8 g/dL 10/08/2024 7:21 PM [facility] Hematocrit 35.8 34.8 - 46.1 % 10/08/2024 7:21 PM [facility] Blood BLOOD SPECIMEN / Unknown Venipuncture / Unknown 10/08/2024 7:10 PM WINDOWS SYSTEMS ARCHITECT 10/08/2024 7:16 PM WINDOWS SYSTEMS ARCHITECT Bronson Shaw MD LAB - HEMATOLOG Y ORDERABLES [facility] [address] [place] [phone], [facility] [phone] * SARS-COV-2 (COVID-19)+INFLU A+B PCR RAPID (10/08/2024 7:09 PM WINDOWS SYSTEMS ARCHITECT) Pathologist [facility] COVID-19 PCR Not detected Not detected 10/09/19 7:57 PM WINDOWS SYSTEMS ARCHITECT [facility] Influenza A Rapid YULIANA Not Detected Not Detected 10/08/2024 7:57 PM WINDOWS SYSTEMS ARCHITECT [facility] Influenza B YUL[place] Rapid Not Detected Not Detected 10/08/2024 7:57 PM [facility] Microbiology SPECIMEN FROM NASOPHARYNGEAL STRUCTURE / Unknown Collection / Unknown 10/08/2024 7:09 PM WINDOWS SYSTEMS ARCHITECT 10/08/2024 7:14 PM WINDOWS SYSTEMS ARCHITECT Narrative [facility] - 10/08/2024 7:57 PM WINDOWS SYSTEMS ARCHITECT Influenza assay performed by [employer]. [...] acid amplification assay performance was validated by [facility]. This test has been authorized by [...] Shaw MD LAB - MICROBIOL OGY ORDERABLES [facility] [address] [place] [phone], [facility] [phone] * (ABNORMAL) PT-INR [facility] (10/08/2024 3:25 PM WINDOWS SYSTEMS ARCHITECT) PT 12.0(L) 12.1 - 14.8 Seconds 10/08/2024 3:58 PM WINDOWS SYSTEMS ARCHITECT [facility] INR 0.9 See Comment 10/08/2024 3:58 PM WINDOWS SYSTEMS ARCHITECT [facility] Comment:The suggested therap eutic range for standard coumadin (warfarin) therapy is an INR of 2.0-3.0. For high-risk patients (Mechanical Mitral Valve Prosthesis, etc.), the suggested prophylactic therapeutic range is an INR of 2.5-3.5. Blood BLOOD SPECIMEN / Unknown Venipuncture / Unknown 10/08/2024 3:25 PM WINDOWS SYSTEMS ARCHITECT 10/08/2024 3:33 PM WINDOWS SYSTEMS ARCHITECT Zeinab Taylor APRN-BAND SAW FILER LAB - COAGUL ATION ORDERABLES [address] [address], [facility] [phone] * TYPE + SCREEN PANEL (10/08/2024 3:25 PM WINDOWS SYSTEMS ARCHITECT) [facility] Antibody Screen NEG 4:24 PM WINDOWS SYSTEMS ARCHITECT [facility] BLOOD BANK LAB ABO Rh O POS 10/08/2024 4:24 PM WINDOWS SYSTEMS ARCHITECT [facility] BLOOD BANK LAB Blood Bank BLOOD SPECIMEN / Unknown Venipuncture / Unknown 10/08/2024 3:25 PM WINDOWS SYSTEMS ARCHITECT 10/08/2024 3:40 PM WINDOWS SYSTEMS ARCHITECT Zeinab Taylor APRN-BAND SAW FILER LAB - BLOOD BANK ORDERABLES Performing Organization Address City/[facility]/ZIP Co de Phone Number [facility] BLOOD BANK LAB [address] [place] [phone], [facility] [phone] * COMPREHENSIVE METABOLIC PANEL (10/08/2024 3:25 PM WINDOWS SYSTEMS ARCHITECT) [facility] BUN 11 7 - 26 mg/dL 10/08/2024 4:02 PM [facility] Creatinine 0.63 0.56 - 0.96 mg/dL 10/08/2024 4:02 PM [facility] Sodium 138 136 - 145 mmol/L 10/08/2024 4:02 PM [facility] Potassium 4.2 3.5 - 4.5 mmol/L 10/08/2024 4:02 PM [facility] Chloride 107 98 - 107 mmol/L 10/08/2024 4:02 PM [facility] CO2 22 22 - 29 mmol/L 10/08/2024 4:02 PM [facility] Glucose 88 70 - 99 mg/dL 10/08/2024 4:02 PM [facility] Calcium 8.9 8.4 - 10.2 mg/dL 10/08/2024 4:02 PM [facility] Protein Total 6.8 6.0 - 8.3 g/dL 10/08/2024 4:02 PM [facility] Albumin 3.9 3.4 - 5.0 g/dL 10/08/2024 4:02 PM [facility] Bilirubin Total 0.2 0.2 - 1.2 mg/dL 10/08/2024 4:02 PM [facility] Alkaline Phosphatase 111 40 - 150 U/L 10/08/2024 4:02 PM [facility] ALT 23 5 - 55 U/L 10/08/2024 4:02 PM [facility] AST 25 5 - 34 U/L 10/08/2024 4:02 PM [facility] Anion Gap 9 6 - 16 10/08/2024 4:02 PM [facility] BUN/Creatinine Ratio 17 7 - 23 10/08/2024 4:02 PM [facility] Osmolality Calculated 285 275 - 295 mOsm/kg 10/08/2024 4:02 PM [facility] Albumin/Globulin Ratio 1.3 1.1 - 2.3 10/08/2024 4:02 PM [facility] eGFR by CKD-EPI >90 >=90 mL/min/1.7 3 m2 10/08/2024 4:02 PM [facility] Blood BLOOD SPECIMEN / Unknown Venipuncture / Unknown 10/08/2024 3:25 PM WINDOWS SYSTEMS ARCHITECT 10/08/2024 3:35 PM WINDOWS SYSTEMS ARCHITECT Zeinab Taylor WATCH REPAIRER APPRENTICE-BAND SAW FILER LAB - CHEMIS TRY ORDERABLES [facility] [address] [place] [phone], [facility] [phone] * XR Knee Right 3Vw (09/19/2024 7:48 PM WINDOWS SYSTEMS ARCHITECT) Anatomical Region Laterality Modality Lower Extremity Digital Radiogra phy 09/19/2024 7:44 PM WINDOWS SYSTEMS ARCHITECT Impressions 09/20/2024 8:25 AM WINDOWS SYSTEMS ARCHITECT IMPRESSION: No acute fracture or dislocation identified. Report dictated by Brennen Antoine DO (optometrist president/practice owner). Lina Sewell MD have personally reviewed and interpreted this examination/study. > Interpreting Provider: Lina Weinberg MD on 09/20/2024 8:25 AM Narrative 09/20/2024 8:25 AM WINDOWS SYSTEMS ARCHITECT PROCEDURE: XR KNEE RIGHT 3VW, DATE/TIME OF EXAM: 09/19/2024 7:16 PM, LOCATION [facility] INDICATION: M25.552: Left hip pain ADDITIONAL [...] DATE/TIME OF EXAM: 09/19/2024 7:16 PM, LOCATION [facility] INDICATION: M25.552: Left hip pain ADDITIONAL [...] identified. Report dictated by Brennen Antoine DO (optometrist president/practice owner). Lina Sewell MD have personally reviewed and interpreted this examination/study. > Interpreting Provider: Lina Weinberg MD on 09/20/2024 8:25 AM Zeinab Taylor WATCH REPAIRER APPRENTICE-BAND SAW FILER DIAGNOSTIC I MAGING ORDERABLES * XR Pelvis W Left Hip 2Vw (09/19/2024 7:47 PM WINDOWS SYSTEMS ARCHITECT) Anatomical Region Laterality Modality Pelvis Digital Radiogra phy 09/19/2024 7:47 PM WINDOWS SYSTEMS ARCHITECT Impressions 09/20/2024 8:24 AM WINDOWS SYSTEMS ARCHITECT IMPRESSION: No acute fracture identified. Report dictated by Brennen Antoine DO (optometrist president/practice owner). Lina Sewell MD have personally reviewed and interpreted this examination/study. > Interpreting Provider: Lina Weinberg MD on 09/20/2024 8:24 AM Narrative 09/20/2024 8:24 AM WINDOWS SYSTEMS ARCHITECT PROCEDURE: XR PELVIS W LEFT HIP 2VW, DATE/TIME OF EXAM: 09/19/2024 7:48 PM, LOCATION [facility] INDICATION: M25.552: Left hip pain ADDITIONAL [...] DATE/TIME OF EXAM: 09/19/2024 7:48 PM, LOCATION [facility] INDICATION: M25.552: Left hip pain ADDITIONAL [...] identified. Report dictated by Brennen Antoine DO (optometrist president/practice owner). Lina Sewell MD have personally reviewed and interpreted this examination/study. > Interpreting Provider: Lina Weinberg MD on 09/20/2024 8:24 AM Zeinab Taylor WATCH REPAIRER APPRENTICE-BAND SAW FILER DIAGNOSTIC I MAGING ORDERABLES * CT Lumbar Spine Wo Contrast (09/19/2024 7:32 PM WINDOWS SYSTEMS ARCHITECT) Anatomical Region Laterality Modality Spine Computed Tomogra phy 09/19/2024 7:40 PM WINDOWS SYSTEMS ARCHITECT Impressions 09/19/2024 7:53 PM WINDOWS SYSTEMS ARCHITECT IMPRESSION: 1. No evidence of acute fracture in the cervical, thoracic, or lumbar spine. > Interpreting Provider: Jackie Olmedo MD on 09/19/2024 7:53 PM Narrative 09/19/2024 7:53 PM WINDOWS SYSTEMS ARCHITECT PROCEDURE: CT CERVICAL SPINE WO CONTRAST, CT THORACIC SPINE WO CONTRAST, CT LUMBAR SPINE WO CONTRAST, DATE/TIME OF EXAM: 09/19/2024 7:32 PM, LOCATION [facility] INDICATION: W19.XXXA: Fall, initial encounter ADDITIONAL [...] DATE/TIME OF EXAM: 09/19/2024 7:32 PM, LOCATION [facility] INDICATION: W19.XXXA: Fall, initial encounter ADDITIONAL [...] endplate compression fractures of the L2 and [id number] bodies with less than 25% height loss [...] MD on 09/19/2024 7:53 PM Zeinab Taylor WATCH REPAIRER APPRENTICE-BAND SAW FILER CT ORDERABLE S * CT Thoracic Spine Wo Contrast (09/19/2024 7:32 PM WINDOWS SYSTEMS ARCHITECT) Anatomical Region Laterality Modality Spine Computed Tomogra phy 09/19/2024 7:40 PM WINDOWS SYSTEMS ARCHITECT Impressions 09/19/2024 7:53 PM WINDOWS SYSTEMS ARCHITECT IMPRESSION: 1. No evidence of acute fracture in the cervical, thoracic, or lumbar spine. > Interpreting Provider: Jackie Olmedo MD on 09/19/2024 7:53 PM Narrative 09/19/2024 7:53 PM WINDOWS SYSTEMS ARCHITECT PROCEDURE: CT CERVICAL SPINE WO CONTRAST, CT THORACIC SPINE WO CONTRAST, CT LUMBAR SPINE WO CONTRAST, DATE/TIME OF EXAM: 09/19/2024 7:32 PM, LOCATION [facility] INDICATION: W19.XXXA: Fall, initial encounter ADDITIONAL [...] DATE/TIME OF EXAM: 09/19/2024 7:32 PM, LOCATION [facility] INDICATION: W19.XXXA: Fall, initial encounter ADDITIONAL [...] endplate compression fractures of the L2 and [id number] bodies with less than 25% height loss [...] MD on 09/19/2024 7:53 PM Zeinab Taylor WATCH REPAIRER APPRENTICE-BAND SAW FILER CT ORDERABLE S * CT Cervical Spine Wo Contrast (09/19/2024 7:32 PM WINDOWS SYSTEMS ARCHITECT) Anatomical Region Laterality Modality Spine Computed Tomogra phy 09/19/2024 7:40 PM WINDOWS SYSTEMS ARCHITECT Impressions 09/19/2024 7:53 PM WINDOWS SYSTEMS ARCHITECT IMPRESSION: 1. No evidence of acute fracture in the cervical, thoracic, or lumbar spine. > Interpreting Provider: Jackie Olmedo MD on 09/19/2024 7:53 PM Narrative 09/19/2024 7:53 PM WINDOWS SYSTEMS ARCHITECT PROCEDURE: CT CERVICAL SPINE WO CONTRAST, CT THORACIC SPINE WO CONTRAST, CT LUMBAR SPINE WO CONTRAST, DATE/TIME OF EXAM: 09/19/2024 7:32 PM, LOCATION [facility] INDICATION: W19.XXXA: Fall, initial encounter ADDITIONAL [...] DATE/TIME OF EXAM: 09/19/2024 7:32 PM, LOCATION [facility] INDICATION: W19.XXXA: Fall, initial encounter ADDITIONAL [...] endplate compression fractures of the L2 and K4dkmmmyhuw bodies with less than 25% height loss [...] Jackie Olmedo MD on 09/19/2024 7:53 PM Zeianb Taylor WATCH REPAIRER APPRENTICE-BAND SAW FILER CT ORDERABLE S * HELICOBACTER PYLORI ANTIGEN FECES (09/02/2024 12:30 PM WINDOWS SYSTEMS ARCHITECT) Helicobacter pylori Antigen Stool Negative Negative 09/04/2024 1:46 PM WINDOWS SYSTEMS ARCHITECT [facility] ([facility]) Comment: Performed By: [facility] [address] [place] [id number] Card Player: Alfonso Mercado MD, PhD CLIA Number: [id number] Stool STOOL SPECIMEN / Unknown Collection / Unknown 09/02/2024 12:30 PM WINDOWS SYSTEMS ARCHITECT 09/02/2024 12:31 PM WINDOWS SYSTEMS ARCHITECT Bernadette Watson MD LAB - MICROBIOLOGY [facility] ([facility]) [address] * HEPATITIS SCREEN ACUTE (05/07/2013 5:15 AM CDT) Hepatitis A Virus Antibody IgM NONREACTIVE NONREACTIVE [facility] Hepatitis C Antibody NONREACTIVE NONREACTIVE [facility] Comment: Anti-HCV screen indicates no serologic evidence of past or current infection with Hepatitis C Virus. Patients with unexplained liver disease who are immunocompromised or suspected of having acute Hepatitis C infection may benefit from Nucleic Acid Test (SELWYN) for Hepatitis C Viral RNA to confirm Hepatitis C status. Hepatitis B Virus Surface Antigen NONREACTIVE NONREACTIVE [facility] Hepatitis B Core Virus Antibody IgM NONREACTIVE NONREACTIVE [facility] 05/07/2013 5:15 AM CDT 05/07/2013 5:57 AM CDT Arnold Mireles MD LAB - CHEMISTRY [place] [facility] [address] [phone] from Last 3 Months or Most Recently [...] 9:59 AM 12/31/2023 10:03 PM Care Teams Collection Specialist Relationship Specialty Start Date End Date Brett Chávez MD [address] [place] [phone] PCP - General 08/23/22 Ally Chambers, RN Report Writer 09/12/16
--- OUTSIDE RECORDS SUMMARY | 2024-10-13 01:56 | XMS_ITS | Encounter Summary ---
Author Organization [facility] Address [address] [place] [address] Phone Care Team Providers Care Fishing Tool Supervisor Name Role Phone Brett Chávez MD Primary Care Provider [phone] Cedric Martinez MD Primary Care Provider [phone] Sue Snow MD Primary Care Provider [phone] Jn Polo PAC Unavailable [phone] Eli Abbott MD Primary Care Provider [phone] Reason for Visit * Reason Comments Medication Refill Encounter Details Date Type Department Care Team (Late st Contact Info) Description 07/18/2020 Refill [facility] [address] [place] [phone] Cruz Velasquez MD [address] [place] [address] Medication Refill Social History Tobacco [...] COVID-19? No / Unsure 07/14/2020 11:34 PM STOCK PITCHER documented as of this encounter Miscellaneous Notes * Telephone Encounter - Thelma Paez - 07/19/2020 7:58 AM CST Patient has not been seen in the past 6 months. K PITCHER documented in this encounter Plan of Treatment Upcoming Encounters Date Type Department Care Team (Late st Contact Info) Description 10/13/2024 2:00 PM CDT Appointment [facility] MRI [address] [place] [address] Jn Polo, PAC [address]2 [facility]. [address] [place] [address] Discharge Disposition: Discharged to home or Selfcare documented as of this encounter Visit Diagnoses Not on filedocumented in this encounter Additional Health Concerns Infection Onset Date Last Indicated Resolved Time COVID - 19 08/01/2020 08/01/2020 08/05/2020 1:58 PM STOCK PITCHER COVID - 19 08/17/2021 08/17/2021 08/20/2021 6:06 AM STOCK PITCHER COVID - 19 Confirmed 08/17/2021 08/17/2021 022 12:16 AM STOCK PITCHER COVID - 19 07/26/2022 09/17/2022 09/17/2022 8:04 AM STOCK PITCHER COVID - 19 07/20/2024 07/20/2024 07/20/2024 9:02 PM STOCK PITCHER documented as of this encounter Care Teams Fishing Tool Supervisor Relationship Specialty Start Date End Date Brett Chávez MD [address] [facility] [address] [place] [address] PCP - General Family Medicine 06/12/15 03/25/23 Cedric Martinez MD [address] [facility] [address] [place] [address] PCP - General Family Medicine 03/26/23 02/04/24 Sue Snow MD [address] [place] [address] PCP - General Internal Medicine 02/05/24 09/02/24 Eli Abbott MD [address] [place] [address] PCP - General Family Medicine 09/03/24 Jn Polo PAC [address] [place] [address] Physician Junior Financial Analyst Physician Junior Financial Analyst 07/13/24 documented as of this encounter
--- OUTSIDE RECORDS SUMMARY | 2024-10-13 01:56 | XMS_ITS | Encounter Summary ---
Author Organization [facility] Address [address] [address] Care Team Providers Care Kapok Machine Operator Name Role Phone Reyes, Ally Dunn RN Unavailable [phone] Brett Chávez MD Primary Care Provider [phone] Reason for Visit * Reason Onset Date Comments MEDICATION REFILL 01/28/2024 Encounter Details Date Type Department Care Team (Late st Contact Info) Description 01/28/2024 Refill [facility] - Infectious Disease [address] [place] [address], [facility] [place] [phone] Bernadette Watson MD [address] [place] [address] [place] [address] MEDICATION REFILL Social History Tobacco Use Types [...] Recorded Patient Health Questionnaire-2 Score 0 01/10/2024 [facility] - Occupational Stress [...] place to sleep or slept in a skilled nursing (including now)? Patient declined 12/13/2023 Sex and [...] Description 10/21/2024 2:00 PM CDT Office Visit [facility] - Neurology [address] [place] [address], [facility] [place] [address] Charanjit Jackson MD [address] [place] [phone] documented as of this encounter Visit Diagnoses Diagnosis Surgical site infection Lumbar pain Lumbago documented in this encounter Additional Health Concerns Infection Onset Date Last Indicated Resolved Time COVID-19 Under Investigation 10/08/2024 10/08/2024 10/08/2024 7:57 PM PROJECT GEOPHYSICIST documented as of this encounter Care Teams Kapok Machine Operator Relationship Specialty Start Date End Date Brett Chávez MD [address] [place] [phone] PCP - General 08/23/22 Ally Chambers, RN Emergency Room Clerk 09/12/16 documented as of this encounter
[2024-10-13 02:13] LABS: Alanine Aminotransferase 27 U/L (6-35); Albumin Level 3.9 g/dL (3.5-5.1); Alkaline Phosphatase 101 U/L (38-126); Anion Gap 8 mmol/L (4-12); Aspartate Amino Transferase 39 U/L (14-36); Bilirubin,Total 0.3 mg/dL (0.2-1.3); Blood Urea Nitrogen 16 mg/dL (7-17); Calcium 8.8 mg/dL (8.4-10.2); Carbon Dioxide 22 mmol/L (22-30); Chloride 106 mmol/L (98-107); Estimated CRCL calculation 149 ml/min; Estimated Glomerular Filt Rate > 60; Glucose 89 mg/dL (65-110); Lipase 76 U/L (23-300); Magnesium 1.9 mg/dL (1.6-2.3); Potassium 4.3 mmol/L (3.4-5.0); SPREG INTERNAL CONTROL Positive; Serum Qual hCG Negative; Sodium 136 mmol/L (137-145)
--- NOTE | 2024-10-13 02:30 | ED.ABDPAIN ---
HPI - Abdominal Pain General Chief Complaint: Abdominal Pain Stated Complaint: RUQ pain, itchy, rash, N/V, blood in vomit Time Seen by Provider: 10/13/24 01:40 History of Present Illness HPI narrative: Patient is a 44-year-old female who presents emergency department this evening complaining of right-sided abdominal pain, itching and a rash which started last and have been progressively getting worse. Patient states that her urine does have a foul order. Admits that she does have a history of ulcers and H pylori but was told not to take any diix-nxd-nnnbmdp medications for any abdominal pain and to come to the emergency department for further evaluation. Denies any recent illness, fevers or chills. Denies any chest pain or shortness of breath. No additional symptoms or concerns at this time. Related Data Home Medications ?Medication ?Instructions ?Recorded ?Confirmed ?Last Taken ?Type albuterol sulfate 2.5 mg/3 mL 2.5 mg inhalation Q3H 12/21/23 12/21/23 Unknown History (0.083 %) solution for nebulization albuterol sulfate 90 mcg/actuation 2 puff inhalation Q4H wheezing 12/21/23 12/21/23 Unknown History aerosol inhaler carbamazepine 100 mg 200 mg PO BID 12/21/23 12/21/23 Unknown History capsule,extended release [id number] cefepime 1 gram intravenous 2 g IV Q8H 12/21/23 12/21/23 Unknown History piggyback cyclobenzaprine 10 mg tablet 10 mg PO TID PRN Muscle Spasm 12/21/23 12/21/23 Unknown History lisinopril 10 mg tablet 5 mg PO DAILY 12/21/23 12/21/23 Unknown History metronidazole 500 mg tablet 500 mg PO Q8H 12/21/23 12/21/23 Unknown History ondansetron 4 mg disintegrating 4 mg PO Q6H PRN Nausea And Vomiting 12/21/23 12/21/23 Unknown History tablet vancomycin 1 gram/100 mL in 0.9 % 1 g IV Q12H 12/21/23 12/21/23 Unknown History sodium chloride intravenous solution Allergies Allergy/AdvReac Type Severity Reaction Status Date / Time ceftriaxone Allergy Severe Anaphylactic Verified 03/13/24 18:40 Shock fentanyl Allergy Severe Stopped Verified 03/13/24 18:40 Breathing Iodinated Contrast Media Allergy Intermediate Hives/RED Verified 03/13/24 18:40 FACE ciprofloxacin Allergy Mild RASH Verified 03/13/24 18:40 codeine Allergy Mild SEVERE Verified 03/13/24 18:40 DROWSINESS venom-honey bee Allergy Mild RASH Verified 03/13/24 18:40 levofloxacin Allergy Unknown Unknown Verified 03/13/24 18:40 Sulfa (Sulfonamide Allergy Unknown Unknown Verified 03/13/24 18:40 Antibiotics) morphine Allergy Stopped Verified 03/13/24 21:06 Breathing propofol AdvReac Severe seizures Verified 03/13/24 18:40 Review of Systems Review of Systems: All systems are reviewed and are negative unless stated otherwise in the HPI. [facility] Past Medical History Medical History Acute blood loss anemia NSAID long-term use Osteomyelitis of lumbar spine Seizures Deep venous thrombosis Diet-controlled type 2 diabetes mellitus Chronic obstructive pulmonary disease Tobacco user Anxiety and depression Kidney stone Endometriosis Uterine cancer Asthma Surgical History Surgical History History of laminectomy (11/2023) L4-S1 per Dr. Skelton at [facility] complicated by hematoma and infection. History of Jennifer-en-Y gastric bypass History of hysterectomy for cancer History of tonsillectomy History of hysterectomy History of lobectomy of lung Right upper lobe for precancerous nodule Family History Family History Other Unknown family medical history Social History Social History Social History: Surrogate medical decision maker: Kathie Irvin, mother. Code status: Full code. Smoking packs per day: 0.5 Smoking cigarettes per day: 10.0 Years smoked: 31 Smoking pack-years: 15.50 Smoking status: Current every day smoker Tobacco type: cigarettes Alcohol intake: unknown Substance use: unknown Do You Feel Safe in your Home?: Yes Lack of Transportation: No Lack of Food: Often True Current Housing: I Have Housing Concerned About Future Housing: No Difficulty Paying Gas/Electric Bills: YES Difficulty Paying for Meds: No Currently Unemployed: Decline to Answer Education: Trade/Vocational Certificate Difficulty w/ Childcare or Family Care: No Spiritual care concerns: No Exam Narrative: General: Alert, awake, afebrile, in no acute distress. HEENT: PERRL, no rhinorrhea, no post nasal drip, oropharynx clear. Neck: Trachea midline, no JVD, no lymphadenopathy. Cardiovascular: Regular rate and rhythm, no murmurs, rubs or gallops, no peripheral edema. Respiratory: Clear to auscultation bilaterally, no tachypnea, no wheezing, no rhonchi, no rubs, no respiratory distress. Abdomen: Soft, tenderness to palpation over the right abdomen, nondistended, no rebound, no guarding, no peritoneal signs. Musculoskeletal: No joint swelling or deformity, normal muscle tone. Skin: No rashes or petechia, no signs of infection. Psychiatric: Alert and oriented, normal behavior and judgment for situation. Neurological: Alert and oriented to person, place, and time. Follows all commands. No focal deficits, speech is clear and fluent. MDM - Abdominal Pain MDM Narrative Medical decision making narrative: The patient was evaluated by myself in the emergency department. History is obtained from patient who is an independent historian and physical exam was performed. External medical records were reviewed at this time. IV was established and pertinent tests were ordered. Patient was administered 15mg of IV Toradol which did not alleviate the patient's pain so she was administered 0.5 mg of IV Dilaudid due to a long list of allergies to medications, patient also has a reported allergy to iodine with hives/rash at this time she was administered 125 mg of IV Solu-Medrol and 50 mg IV Benadryl. Laboratory results obtained revealing no acute process. Urinalysis revealed urinary tract infection, nitrate positive. Patient was administered her 1st dose of antibiotic, Macrobid in the emergency department. Imaging studies obtained included CT abdomen pelvis with IV contrast which was independently interpreted by me revealing no acute process, which is pending final radiology interpretation. Differential diagnosis considerations include peptic ulcer disease, cholecystitis, appendicitis, pyelonephritis, biliary colic. Comorbidities impacting this visit include none. I have evaluated and discussed social determinants of health with the patient that could potentially impact subsequent diagnosis and treatment plans. On repeat assessment of the patient, reevaluation revealed that the patient is doing well and is in no acute distress. Patient symptoms have improved since she arrived to our emergency department. Repeat vital signs were all reviewed and noted to be stable. Differential diagnosis and treatment plan were discussed with the patient at bedside. Patient agrees with discussion and after shared medical decision making agrees with discharge. All questions were answered to the patient's satisfaction. Patient will follow up with GI in 3-5 days. A script for Macrobid was sent to patient's pharmacy to take as prescribed for her UTI. Patient was provided with strict return precautions and instructed to return to the emergency department if any new or worsening symptoms develop. The patient was discharged in stable condition. Lab Data 10/13/24 01:50 10/13/24 01:50 Labs: Lab Results 10/13/24 10/13/24 10/13/24 Range/Units 01:50 01:50 03:32 WBC 6.2 (4.5-10.0) K/mm3 RBC 4.13 L (4.2-5.4) M/mm3 Hgb 10.0 L (12.0-15.0) g/dL Hct 32.4 L (37.0-47.0) % MCV 78.5 L (80-100) fl MCH 24.2 L (26-34) pg MCHC 30.9 L (32-36) g/dl RDW 19.8 H (11.5-14.5) % Plt Count 341 (150-375) k/mm3 MPV 9.9 (7.4-10.4) fl Immature Gran % (Auto) 0.2 (0-0.5) % Neut % (Auto) 54.7 (45.5-73.1) % Lymph % (Auto) 32.4 (18.3-44.2) % Anson % (Auto) 8.5 (2.6-8.5) % Eos % (Auto) 3.7 (0-4.4) % Baso % (Auto) 0.5 (0.2-1.2) % Lymph # (Auto) 1.99 (0.9-3.2) K/mm3 Anson # (Auto) 0.5 (0.1-0.6) K/mm3 Eos # (Auto) 0.2 (0-0.3) K/mm3 Baso # (Auto) 0.0 (0.0-0.1) K/mm3 Abs Immat Gran (auto) 0.01 (0.00-0.031) K/mm3 Absolute Neuts (auto) 3.4 (1.3-6.7) K/mm3 Absolute Nucleated RBC 0.000 (0.0-0.012) K/mm3 Nucleated RBC % 0.0 (0.0-0.2) % Sodium 136 L (137-145) mmol/L Potassium 4.3 (3.4-5.0) mmol/L Chloride 106 (98-107) mmol/L Carbon Dioxide 22 (22-30) mmol/L Anion Gap 8 (4-12) mmol/L BUN 16 (7-17) mg/dL Creatinine 0.58 L (0.7-1.0) mg/dL Estim Creat Clear Calc 149 ml/min Estimated GFR > 60 (59 - ) Glucose 89 (65-110) mg/dL Calcium 8.8 (8.4-10.2) mg/dL Magnesium 1.9 Cancelled (1.6-2.3) mg/dL Total Bilirubin 0.3 (0.2-1.3) mg/dL Direct Bilirubin 0.0 (0-0.3) mg/dL AST 39 H (14-36) U/L ALT 27 (6-35) U/L Alkaline Phosphatase 101 (38-126) U/L Total Protein 7.0 (6.3-8.2) g/dL Albumin 3.9 (3.5-5.1) g/dL Lipase 76 (23-300) U/L Serum HCG, Qual Negative Urine Color Yellow (Yellow) Urine Appearance Cloudy H (Clear) Urine pH 6.5 (5.0-9.0) Ur Specific Graham 1.014 (1.001-1.035) Urine Protein Negative (Negative) mg/dL Urine Glucose (UA) Negative (Negative) mg/dL Urine Ketones Negative (Negative) mg/dL Ur Blood (Man) Negative (Negative) Urine Nitrate Positive H (Negative) Urine Bilirubin Negative (Negative) Urine Urobilinogen 0.2 (<2.0) mg/dL Leukocyte Esterase Rfl 1+ H (Negative) PHILLIP/UL Urine RBC 0-2 (0-2) /hpf Urine WBC 21-50 H (0-3) /hpf Ur Squamous Epith Cells None seen (Few) /hpf Urine Bacteria 4+ H /hpf Urine Casts 0-2 Discharge Plan Discharge Clinical Impression: Abdominal pain, UTI (urinary tract infection) Patient Disposition: Home, Self-Care Condition: Improved Instructions: Antibiotic Form, Urinary Tract Infection in Women (DC), Abdominal Pain (ED) Additional Instructions: Please follow-up with the GI doctor you were provided with today, call tomorrow to set up a follow-up appointment to be seen within the next 3-5 days. Take the prescribed antibiotic as instructed for urinary tract infection. Return to the emergency department if any new or worsening symptoms develop. Patient Language: Venezuelan Prescriptions: New nitrofurantoin monohyd/m-cryst [Macrobid] 100 mg capsule 100 mg PO Q12H 5 Days Qty: 10 0RF Rx Instructions: must administer with a meal/food No Action metronidazole 500 mg tablet 500 mg PO Q8H lisinopril 10 mg tablet 5 mg PO DAILY carbamazepine 100 mg capsule, ER multiphase 12 hr 200 mg PO BID cyclobenzaprine 10 mg tablet 10 mg PO TID PRN (Reason: Muscle Spasm) Rx Instructions: no driving or alcohol while taking albuterol sulfate 2.5 mg /3 mL (0.083 %) Solution For Nebulization 2.5 mg inhalation Q3H albuterol sulfate 90 mcg/actuation HFA aerosol inhaler 2 puff INHALATION Q4H ondansetron [Zofran ODT] 4 mg Tablet,Disintegrating 4 mg PO Q6H PRN (Reason: Nausea And Vomiting) cefepime 1 gram Piggyback 2 g IV Q8H vancomycin in 0.9 % sodium chl 1 gram/100 mL Solution 1 g IV Q12H Follow-up/Referrals: Neville Paz MD [Physician] - 3 Days Kyler,Brett Carr MD [Primary Care Provider] - 1 Week Time of Disposition: 04:44
[2024-10-13] MEDS: diphenhydrAMINE HCl INJ 50 MG/ML VIAL IV PUSH (02:35)
[2024-10-13] MEDS: methylPREDNISolone SOD SUCC 125 MG VIAL IV PUSH (02:35)
[2024-10-13] MEDS: ONDANSETRON INJ 4 MG/2 ML VIAL IV PUSH (02:35)
--- NOTE | 2024-10-13 02:50 | PC.NURSE ---
Pt requesting pain medication. EDP notified. EDP verbalized to give pt the option of iv toradol or po tylenol as pt has many allergies listed in her chart. Pt verbalized I cant take tylenol. It does nothing for me except cause me liver pain, and make me vomit. You should know that. I've told everyone no before.
[2024-10-13] MEDS: KETOROLAC 15 MG/ML VIAL (*BKC) IV PUSH (02:57)
--- NOTE | 2024-10-13 03:30 | PC.NURSE ---
pt verbalized to this rn get a baseball bat and just knock me out. RN verbalized that is not an option but that I would speak with edp to see if we can give anything else for pain. Pt verbalized the only thing that works for me is Hydromorphone. They gave me that after my surgery. When this RN asked if she had a reaction to that since there are multiple allergies listed. Pt verbalized this is what i can take nothing else will work for me. EDP Notified.
[2024-10-13] MEDS: HYDROmorphone HCL INJ (*CRX) 1 MG/ML SYR 0.5 MG IV PUSH (03:40)
[2024-10-13 03:44] LABS: Add Urine Microscopic? YES; Appearance Urine Cloudy (Clear); Bacteria Urine 4+ /hpf; Bilirubin Urine Negative (Negative); Blood Urine Negative (Negative); Color Urine Yellow (Yellow); Glucose Urine UA Negative (Negative); Ketones Urine Negative (Negative); Leukocyte Esterase Ur 1+ LEU/UL (Negative); Nitrate Urine Positive (Negative); Non Pathogenic Casts 0-2; Protein Urine Negative (Negative); RBC Urine 0-2 /hpf (0-2); Specific Grav Ur 1.014 (1.001-1.035); Squamous Epithelial Cell Urine None Seen /hpf (Few); Urobilinogen Urine 0.2 mg/dL (<2.0); WBC Urine 21-50 /hpf (0-3); pH Urine 6.5 (5.0-9.0)
[2024-10-13] MEDS: NITROFURANTOIN MONOHYD MACROCR 100 MG CAP PO (04:47)
[2024-10-13 04:59] VITALS: BP 136/83; PULSE 91; RESP 14; O2SAT 100
== END 2024-10-13 05:02 | disposition home or self-care (01) ==
PROVIDERS: Emergency Provider Emergency Medicine; PCP Family Medicine
DX: N39.0 Urinary tract infection, site not specified (principal); R10.11 Right upper quadrant pain; F17.210 Nicotine dependence, cigarettes, uncomplicated; F41.9 Anxiety disorder, unspecified; F32.A Depression, unspecified; E11.9 Type 2 diabetes mellitus without complications; J44.9 Chronic obstructive pulmonary disease, unspecified; Z87.442 Personal history of urinary calculi
CPT/HCPCS: 36415; 74177; 80053; 81001; 82248; 83690; 83735; 84703; 85025; 87086; 87186; 96361; 96374; 96375; 99284; A9270; J1171; J1200; J1885; J2405; J2919; J7030; Q9967

== ENCOUNTER 2024-11-25 21:26 | Emergency (ER) | payer OTHER, SELFPAY ==
--- NOTE | ~2024-11-25 | XR_ITS ---
CHEST RADIOGRAPH CLINICAL HISTORY: cp/sob . COMPARISON: 11/09/2017 TECHNIQUE: Single portable view of the chest. FINDINGS The cardiomediastinal silhouette is unremarkable. The lungs are clear. Staple line projects over the superior right lung. IMPRESSION: No focal infiltrate or effusion. Reviewed, dictated and finalized at location A.
--- NOTE | ~2024-11-25 | CT_ITS ---
EXAMINATION: CTA chest PE protocol DATE: 11/26/2024 0:05 CDT INDICATION: Chest pain and shortness of breath. History of DVT TECHNIQUE: Computed tomographic angiography (CTA) of the chest was performed with 100 mL Omnipaque-35 0 intravenous contrast. The dose-length product was 904.70 mGy-cm. Maximum intensity projection 3D-re constructions of the aorta and other arteries were constructed by the technologist on a separate work station. COMPARISON: None. FINDINGS/OBSERVATIONS: PULMONARY ARTERIES: No filling defect is identified within the main or proximal pulmonary artery. The main pulmonary artery is not enlarged. THORACIC AORTA: No aneurysmal dilatation or dissection is present. The great vessels are intact LUNGS: The lungs are clear. MEDIASTINUM: No morphologically suspicious or pathologically enlarged lymph nodes are identified with in the mediastinum or bilateral axilla. BONES OF THE CHEST: No acute fracture. No significant degenerative disease. No lytic or blastic lesions. HEART: The heart is of normal size, without pericardial effusion. IMPRESSION: No pulmonary embolus. No thoracic aortic dissection. The lungs are clear. Reviewed, dictated and finalized at location A.
[2024-11-25 21:28] VITALS: BP 153/88; PULSE 95; RESP 16; TEMP 36.8; O2SAT 100
--- NOTE | 2024-11-25 21:28 | ECG_ITS ---
Test Date: 2024-11-25 21:33:39 Measurements Intervals Henrietta Rate: 86 P: 55 PA: 179 QRS: 12 QRSD: 92 T: 55 QT: 339 QTc: 406 Interpretive Statements SINUS RHYTHM BASELINE WANDER- V3-V4 NORMAL ECG No previous ECG available for comparison Electronically Signed On 11-26-2024 05:13:13 CDT by Justice Caldwell D.O.
--- OUTSIDE RECORDS SUMMARY | 2024-11-25 21:28 | XMS_ITS | Encounter Summary ---
Author Organization [employer] Address [address] [place] [address] Care Team Providers Care Mental Health Case Manager Name Role Phone Brett Chávez MD Primary Care Provider + Encounter Details Date Type Department Care Team (Late st Contact Info) Description 06/07/2003 Outpatient Historical [facility] Rodo Ann MD [address] [place] [address] [place] [address] Er, Authorized P NO ADDRESS ON FILE DEPRESSIVE DISORDER NEC (Primary Dx) Social History Tobacco Use Types Packs/Day Years Used Date Smoking Tobacco: Never Assessed Comments Unknown Sex and Gender Information Value Date Recorded Sex Assigned at Not on file Legal Sex Female 2:47 AM PROMOTIONS OFFICER Gender Identity Not on file Sexual Orientation [...] documented as of this encounter Care Teams Mental Health Case Manager Relationship Specialty Start Date End Date Brett Chávez MD [address] [phone] PCP - General Family Practice 04/02/20 documented as of this encounter
--- OUTSIDE RECORDS SUMMARY | 2024-11-25 21:28 | XMS_ITS | Encounter Summary ---
Author Organization [employer] Address 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
--- OUTSIDE RECORDS SUMMARY | 2024-11-25 21:30 | XMS_ITS | Clinical Summary ---
Author Organization [facility] Address [address] [place] [address] Phone Care Team Providers Care Feeder/Folder Name Role Phone ANATOLIY FLORES, DUANE Taylor Primary Care Provider [phone] Reason for Visit and Chief Complaint The Chief Complaint is: REFERRED BY DUANE MARTINEZ, PCP FOR COLLAPSED VERTEBRE Plan of Treatment No Plan of Treatment Recorded Assessments Includes: Assessments from this encounter Findings - Bulging lumbar disc [M51.26 - Other intervertebral disc displacement, lumbar region] - Last Documented On 04/30/2023 2:16PM ; [facility] - Lumbar spondylosis with radiculopathy [M47.26 - Other spondylosis with radiculopathy, lumbar region] - Last Documented On 04/30/2023 2:16PM ; [facility] - SPINAL STENOSIS LUMBAR REGION W/O NEUROGENIC CLAUDICATION [M48.061 - Spinal stenosis, lumbar region without neurogenic claudication] - Last Documented On 04/30/2023 2:16PM ; [facility] Medical Equipment - Implanted Devices Includes: Current Devices No Medical Equipment Recorded Medications Includes: Medications discussed during this encounter and other current Medications New / Renewed during this visit CORTEZ GUTIÉRREZ-BC on 04/29/2023 Pregabalin 150 MG Oral Capsule Provider: CORTEZ HAMILTON 30 day supply: 60 capsule, 0 refills Diagnosis: Other spondylosis with radiculopathy, lumbar region 1 CAPSULE TWO TIMES A DAYsto p gabapentin Pharmacy: [place] [id number] [facility], [id number] - Last Documented On 10/26/202 3 11:15AM By CORTEZ HAMILTON ; [facility] Nucynta ER 100 MG Oral Tablet Extended Release 12 Hour Provider: CORTEZ AVENDAÑO 15 day supply: 30 tablet, 0 refills Diagnosis: Other spondylosis with radiculopathy, lumbar region 1 tab every 12 hours by mouth Pharmacy: [address], [address] - Last Documented On 3 2:58PM By CORTEZ HAMILTON ; [facility] Current Medications (continue as prescribed) Pregabalin 150 MG Oral Capsule 05/30/2023 Provider: CORTEZ HAMILTON Diagnosis: Other spondylosi s with radiculopathy, lumbar region 1 CAPSULE TWO TIMES A DAY Last Documented On 3 11:19AM By CORTEZ HAMILTON ; [facility] Lacosamide 100 MG Oral Tablet 04/29/2023 Provider: JOANIE MAHER MD Diagnosis: Last Documented On 04/29/2023 2:00PM By Amy ACEVEDO ; [facility] Biofreeze 4% External Gel 04/29/2023 Provider: Diagnosis: Last Documented On 04/29/2023 2:03PM By Amy ACEVEDO ; [facility] Naproxen 500 MG Oral Tablet 04/29/2023 Provider: Diagnosis: bid Last Documented On 3 2:32PM By CORTEZ HAMILTON ; [facility] HYDROmorphone HCl 2 MG Oral Tablet 04/25/2023 Provid er: Diagnosis: Last Documented On 04/29/2023 2:00PM By Amy ACEVEDO ; [facility] Cyclobenzaprine HCl 10 MG Oral Tablet 04/11/2023 Pro vider: KIAN MEDEROS MD Diagnosis: Last Documented On 04/29/2023 2:01PM By Amy ACEVEDO ; [facility] levETIRAcetam 1000 MG Oral Tablet 03/19/2023 Provide r: DUANE MARTINEZ MD Diagnosis: Last Documented On 04/29/2023 2:01PM By Amy ACEVEDO ; [facility] Medications Administered Includes: Administered Medications from this encounter No Administered Medications Recorded Vital Signs Includes: Vital Signs from this encounter Vital Name 04/29/2023 01:55P Blood Pressure Sitting R 140/80 Pulse Rate-Sitting (bpm) 90 Temp-Temporal 97.2 Height (in) 75 Weight (lb) 245 Body Mass Index 30.6 Body Surface Area 2.4 Pain Level 7 Oxygen Saturation (%) 98 Last Documented: On 04/29/2023 1:59PM ; [facility] Results Includes: Results discussed during this encounter Drugs of abuse screen [facility] Ordered by CORTEZ HERNANDEZ [facility]- on Collected: Reported: 04/29/2023 13:51 Last Documented On 3 1:52PM ; [facility] Reviewed on 04/29/2023; All test results are final unless otherwise noted. Lot # & Exp. Date [id number], 11-03-23 N (Normal) Last Documented On 3 1:51PM ; [facility] Amphetamines NEG (NEG) N (Normal) Last Documented On 3 1:51PM ; [facility] Barbiturates NEG (neg) N (Normal) Last Documented On 3 1:51PM ; [facility] Benzodiazepines NEG (neg) N (Normal) Last Documented On 3 1:51PM ; [facility] Cocaine NEG (neg) N (Normal) Last Documented On 3 1:51PM ; [facility] Ecstasy NEG (Neg) N (Normal) Last Documented On 3 1:51PM ; [facility] Methamphetamines NEG (neg) N (Normal) Last Documented On 3 1:51PM ; [facility] Methadone NEG (Neg) N (Normal) Last Documented On 3 1:51PM ; [facility] Morphine NEG (Neg) N (Normal) Last Documented On 3 1:51PM ; [facility] Oxycodone NEG (Neg) N (Normal) Last Documented On 3 1:51PM ; [facility] Phencyclidine NEG (NEG) N (Normal) Last Documented On 3 1:51PM ; [facility] TCA/Tricyclic Antidepressants POS (neg) A (Abnormal) Last Documented On 3 1:51PM ; [facility] Cannabis NEG (neg) N (Normal) Last Documented On 3 1:51PM ; [facility] History of Present Illness Includes: History of Present Illness from this encounter HPI - Allergy list reviewed - Problem list reviewed - Medication reconciliation performed - Medication list reviewed - Prescription Drug Monitoring Program website checked. - Last dose of medication? - Pain is continuous - Pain comes/goes - Primary pain location Back and legs - Primary pain duration Getting bad over last 6months - Secondary pain duration 2 months - Secondary pain location Head and eyes - Pain is burning - Pain is throbbing - Pain is pressure like - Pain is described as numbness - Pain is described as tingling - Pain is deep - Pain is heavy - Relieved by medication - Relieved by repositioning - Relieved by leaning forward - Relieved by touch/rub - Relieved by bracing - Pain aggravated getting in/out of car - Pain aggravated going down stairs - Pain aggravated going up stairs - Pain aggravated lying down - Pain aggravated sitting - Pain aggravated standing - Pain aggravated when out of chair - Pain aggravated by walking - Pain aggrated by coughing/sneezing - Pain aggravated lifting - Pain aggravated by working - Pain aggravated bending - Pain radiating in both thighs - Pain radiates in both calfs/shins - Pain radiates in both feet Discussion: Severe low back pain with radiating pain in predominately L5 dermatomal pattern, L>R. Pain present for approximately 1 month, progressively worsening the last 2-3 weeks. History of seizure disorder and possible MS diagnosis. There was recent breakthrough seizure activity causing a fall. There is also additional testing pending for MS. She sustained L2 and L3 compression fractures with this fall. While there is considerable back pain, she has significant radicular symptoms. She was hospitalized for pain and following seizure activity earlier this month and released on hydromorphone 5mg. She is taking this 3-4 times per day. She is also prescribed gabapentin 600mg tid, but is taking 600mg, 300mg and 600mg due to somnolence. Naproxen is used daily and she is awaiting approval for ketorolac. MRI indicates stenosis and there is an abnormal EMG suggesting right L4-S1 radiculopathy. She denies loss of bowel, but states there is some urine leakage intermittently. She has an appt. with a surgeon 06/01/23. She reports a plan for lumbar fusion while hospitalized, but this was post poned due to insurance. Patient is not a candidate for therapy at this time due to pain. She reports an injection done while hospitalized, but unsure what it was and feels it was minimally effective. She reports the following reactions to opioid medications: Morphine causes hives Oxycodone vomiting Fentnayl given in OR, stopped breathing per patient report hydrocodone has tylenol and she reports tylenol causes elevated liver enzymes Dr. Martinez in [place] performed labs more recently and has referred her to us to manage medication prior to surgical consult. . Imaging: All relevant imaging available was personally reviewed with the patient today with the following tests and results noted: MRI thoracic spine 04/22/23: small broad-based right central protrusion T6-7 with sac effacement but no cord compression or canal stenosis. Minimal left central protrusion T7-8. No acute thoracic compression fracture. MRI L spine 04/25/23: mild L2 and L3 compression fracture with anterior wedging, superior endplate can cavy, mild T-1 hypo intense and stir hyper intense marrow edema. No retropulsion. L4-5 disc bulging, moderate hypertrophic facet arthropathy, ligamentum flavum unfolding, epidural lipomatosis is seen with sac effacement, mild central and lateral recess stenosis. Subchondral cysts in both facets with mild enhancement is seen but paravertebral soft tissue not remarkable. L5-S1 degenerative bulging disc in in plate osteophytes seen extending far laterally into the inferior recess of the left foramen encroaching on the L5 nerve root mild facet arthropathy without central or lateral stenosis. Dorsal. Articular cysts and larger on the right measuring up to 9 mm in diameter with rim enhancement but there is no edema and enhancement in the facet or adjacent paraspinal soft tissue. NCV/EMG 04/13/23: abnormal EMG nerve conduction velocity study because of predominantly motor neuropathy of the right lower extremity with decrease compound muscle action potential amplitudes of the right peroneal and tibial nerves. Prolongation of the right peroneal and tibial F wave latency is suggestive of right L4-S1 radiculopathy Social History Description Last Updated Difficulty walking 04/29/2023 Last Documented On 3 2:16PM ; [facility] No consumption of alcohol 04/29/2023 Last Documented On 3 2:16PM ; [facility] Not using drugs 04/29/2023 Last Documented On 3 2:16PM ; [facility] Smoking packs of cigarettes per day 1/2 pack 04/29/2023 Last Documented On 3 2:16PM ; [facility] Smoking Status Unknown Procedures and Surgical History Includes: Procedures from this encounter Procedures Code Diagnosis Performing Provider Service L ocation Service Date walker Last Documented On 3 1:46PM ; [facility] a standard wheelchair Last Documented On 3 1:46PM ; [facility] use of tobacco assessment performed 1000F Last Documented On 3 1:04PM ; [facility] review of medications documented 1160F Last Documented On 3 1:04PM ; [facility] screening for adult depression: impressi on and score 15 Last Documented On 3 1:46PM ; [facility] standardized depression screening: posit larry for symptoms Last Documented On 3 1:46PM ; [facility] Pain radiates to both sides of buttocks Last Documented On 3 1:46PM ; [facility] Clinical summary provided to patient ~ Patient understands and agrees with treatment plan. Questions answered Last Documented On 3 1:03PM ; [facility] SOAPP-R: total score 19 Last Documented On 3 1:46PM ; [facility] Surgical History Last Updated No Pacemaker 04/29/2023 Last Documented On 3 2:16PM ; [facility] Surgical / procedural history [facility] multip le dates 04/29/2023 Last Documented On 3 2:16PM ; [facility] Medical History Includes: Medical History addressed during this encounter Description Last Updated Back brace 04/29/2023 Last Documented On 3 2:16PM ; [facility] CT/MRI [facility] multiple dates 04/29/2023 Last Documented On 3 2:16PM ; [facility] Injection/Nerve blocks 04/29/2023 Last Documented On 3 2:16PM ; [facility] Moderate to severe pain 04/29/2023 Last Documented On 3 2:16PM ; [facility] NCV/EMG [facility] multiple dates 04/29/2023 Last Documented On 3 2:16PM ; [facility] No Pain Pump 04/29/2023 Last Documented On 3 2:16PM ; [facility] No Spinal cord stimulator 04/29/2023 Last Documented On 3 2:16PM ; [facility] Other method: 04/29/2023 Last Documented On 3 2:16PM ; [facility] Physical therapy 04/29/2023 Last Documented On 3 2:16PM ; [facility] Please list all illnesses/co nditions you have been diagnosed with: Broken bones in back and may have MS 04/29/2023 Last Documented On 3 2:16PM ; [facility] Please list all surgeries: Please ask Last Documented On 3 2:16PM ; [facility] X-rays [facility] multiple dates 04/29/2023 Last Documented On 3 2:16PM ; [facility] Family History Includes: Family History addressed during this encounter Description Last Updated Family history of ischemic heart disease 04/29/2023 Last Documented On 3 2:16PM ; [facility] Family history of ischemic heart disease 04/29/2023 Last Documented On 3 2:16PM ; [facility] Family history of ischemic heart disease 04/29/2023 Last Documented On 3 2:16PM ; [facility] Family history of stroke/paralysis 04/29 Last Documented On 3 2:16PM ; [facility] Family history of stroke/paralysis 04/29 Last Documented On 3 2:16PM ; [facility] Fraternal history of Arthritis 3 Last Documented On 3 2:16PM ; [facility] Maternal history of Arthritis 04/29/2023 Last Documented On 3 2:16PM ; [facility] Maternal history of family history of is chemic heart disease 04/29/2023 Last Documented On 3 2:16PM ; [facility] Paternal history of family history of is chemic heart disease 04/29/2023 Last Documented On 3 2:16PM ; [facility] Paternal history of stroke/paralysis Last Documented On 3 2:16PM ; [facility] Reported family history of seizures 04/06 Last Documented On 3 2:16PM ; [facility] Reported family history of seizures 04/06 Last Documented On 3 2:16PM ; [facility] Sororal history of family history of isc hemic heart disease 04/29/2023 Last Documented On 3 2:16PM ; [facility] Review of Systems Includes: Review of Systems from this encounter Systemic: No systemic symptoms other than noted. In poor overall health and fatigue. Head: Headache chronic/recurring. Neck: No neck pain. Swollen glands in the neck. Eyes: Blurry vision. Cardiovascular: No chest pain or discomfort. Varicose veins. Pulmonary: No dyspnea. Chronic cough and wheezing. Gastrointestinal: Nausea and vomiting. No constipation. Genitourinary: Urinary loss of control. Endocrine: No endocrine symptoms other than noted. Muscle weakness and Weakness. Hematologic: No easy bleeding and no tendency for easy bruising. H/o anemia. Musculoskeletal: Back pain, muscle aches, muscle cramps, pain localized to one or more joints, and joint stiffness localized to one or more joints. Neurological: Dizziness, fainting, memory lapses or loss, convulsions, Falls, and numbness. Psychological: No psychological symptoms other than noted. Depression. Skin: No skin symptoms other than noted. Pruritus. Mental Status Includes: Mental Status from this encounter Description Memory lapses or loss Functional Status Includes: Functional Status from this encounter No Functional Status Recorded Physical Exam Includes: Physical Exam from this encounter Allergies Includes: Active Allergies Substance Type Reaction Onset Date Resolved Date Statu s Tylenol Allergy Nausea, Vomiting 04/29/2023 Ac tive Last Documented On 04/29/2023 2:02PM ; [facility] Note: LIVER PAIN oxyCODONE HCl Allergy Vomiting 04/29/2023 Activ e Last Documented On 3 2:02PM ; [facility] Encounters Encounter Provider Location Date Check-In Time Check-Out Time Diagnosis PAIN MANAGEMENT NEW CONSULT CORTEZ HAMILTON [facility] 023 1:40PM 2:49PM Bulging Intervertebral Disc Lumbar,Spondylosi s with Radiculopathy Lumbar Region,Spinal Stenosis Lumbar Region W/o Neurogenic Claudication Insurance Includes: Active Insurance Policies Plan Name Member ID Group # Subscriber Relationship Effect larry Dates 1 - [facility] [id number] BHARAT MCNAIR Self Clinical Notes Includes: Clinical Notes from this encounter * Progress note Date Encounter Last Documented by 04/29/2023 PAIN MANAGEMENT NEW CONSULT Last documented on 04/30/2023; 2:16 PM, CORTEZ HAMILTON; [facility] Chief Complaint The Chief Complaint is: REFERRED BY DUANE MARTINEZ, PCP FOR COLLAPSED VERTEBRE. History of Present Illness - Allergy list reviewed - Problem list reviewed - Medication reconciliation performed - Medication list reviewed - Prescription Drug Monitoring Program website checked. - Last dose of medication? - Pain is continuous - Pain comes/goes - Primary pain location Back and legs - Primary pain duration Getting bad over last 6months - Secondary pain duration 2 months - Secondary pain location Head and eyes - Pain is burning - Pain is throbbing - Pain is pressure like - Pain is described as numbness - Pain is described as tingling - Pain is deep - Pain is heavy - Relieved by medication - Relieved by repositioning - Relieved by leaning forward - Relieved by touch/rub - Relieved by bracing - Pain aggravated getting in/out of car - Pain aggravated going down stairs - Pain aggravated going up stairs - Pain aggravated lying down - Pain aggravated sitting - Pain aggravated standing - Pain aggravated when out of chair - Pain aggravated by walking - Pain aggrated by coughing/sneezing - Pain aggravated lifting - Pain aggravated by working - Pain aggravated bending - Pain radiating in both thighs - Pain radiates in both calfs/shins - Pain radiates in both feet Discussion: Severe low back pain with radiating pain in predominately L5 dermatomal pattern, L>R. Pain present for approximately 1 month, progressively worsening the last 2-3 weeks. History of seizure disorder and possible MS diagnosis. There was recent breakthrough seizure activity causing a fall. There is also additional testing pending for MS. She sustained L2 and L3 compression fractures with this fall. While there is considerable back pain, she has significant radicular symptoms. She was hospitalized for pain and following seizure activity earlier this month and released on hydromorphone 5mg. She is taking this 3-4 times per day. She is also prescribed gabapentin 600mg tid, but is taking 600mg, 300mg and 600mg due to somnolence. Naproxen is used daily and she is awaiting approval for ketorolac. MRI indicates stenosis and there is an abnormal EMG suggesting right L4-S1 radiculopathy. She denies loss of bowel, but states there is some urine leakage intermittently. She has an appt. with a surgeon 06/01/23. She reports a plan for lumbar fusion while hospitalized, but this was post poned due to insurance. Patient is not a candidate for therapy at this time due to pain. She reports an injection done while hospitalized, but unsure what it was and feels it was minimally effective. She reports the following reactions to opioid medications: Morphine causes hives Oxycodone vomiting Fentnayl given in OR, stopped breathing per patient report hydrocodone has tylenol and she reports tylenol causes elevated liver enzymes Dr. Martinez in [place] performed labs more recently and has referred her to us to manage medication prior to surgical consult. . Imaging: All relevant imaging available was personally reviewed with the patient today with the following tests and results noted: MRI thoracic spine 04/22/23: small broad-based right central protrusion T6-7 with sac effacement but no cord compression or canal stenosis. Minimal left central protrusion T7-8. No acute thoracic compression fracture. MRI L spine 04/25/23: mild L2 and L3 compression fracture with anterior wedging, superior endplate can cavy, mild T-1 hypo intense and stir hyper intense marrow edema. No retropulsion. L4-5 disc bulging, moderate hypertrophic facet arthropathy, ligamentum flavum unfolding, epidural lipomatosis is seen with sac effacement, mild central and lateral recess stenosis. Subchondral cysts in both facets with mild enhancement is seen but paravertebral soft tissue not remarkable. L5-S1 degenerative bulging disc in in plate osteophytes seen extending far laterally into the inferior recess of the left foramen encroaching on the L5 nerve root mild facet arthropathy without central or lateral stenosis. Dorsal. Articular cysts and larger on the right measuring up to 9 mm in diameter with rim enhancement but there is no edema and enhancement in the facet or adjacent paraspinal soft tissue. NCV/EMG 04/13/23: abnormal EMG nerve conduction velocity study because of predominantly motor neuropathy of the right lower extremity with decrease compound muscle action potential amplitudes of the right peroneal and tibial nerves. Prolongation of the right peroneal and tibial F wave latency is suggestive of right L4-S1 radiculopathy Test Conclusions PHQ-9 Score:15 Date:04/29/23 BPI Score: Date: MiDAS Score: Date: SOAPP-R Score: 19 MOD Date:04/29/23 OSWESTRY Score: 80% Date:04/29/23 Past Medical/Surgical History Reported: Back brace, Injection/Nerve blocks, Physical therapy, Other method:, Please list all illnesses/conditions you have been diagnosed with: Broken bones in back and may have MS, and Please list all surgeries: Please ask. Medical: Moderate to severe pain. No Spinal cord stimulator and no Pain Pump. Surgical / Procedural: Surgical / procedural history [facility] multiple dates. No Pacemaker. Tests: X-rays [facility] multiple dates, CT/MRI [facility] multiple dates, and NCV/EMG [facility] multiple dates. Current Medication - Biofreeze 4% External Gel as needed 0 days, 0 refills - Cyclobenzaprine HCl 10 MG Oral Tablet One tablet three times a day 30 days, 0 refills - Gabapentin 600 MG Oral Tablet One tablet three times a day 30 days, 0 refills - HYDROmorphone HCl 2 MG Oral Tablet 1-2 every 4-6 hours as needed 3 days, 0 refills - Lacosamide 100 MG Oral Tablet One tablet twice a day 30 days, 0 refills - levETIRAcetam 1000 MG Oral Tablet One tablet twice a day 30 days, 0 refills - Naproxen 500 MG Oral Tablet bid, 0 days, 0 refills Social History Difficulty walking. Tobacco use: Smoking packs of cigarettes per day 1/2 pack. Alcohol: No consumption of alcohol. Drug Use: Not using drugs. Allergies - oxyCODONE HCl Reaction: Vomiting - Tylenol Reaction: Nausea, Vomiting Family History Stroke/paralysis Stroke/paralysis Reported family history of seizures Reported family history of seizures Ischemic heart disease Ischemic heart disease Ischemic heart disease Paternal: Stroke/paralysis Ischemic heart disease Maternal: Arthritis Ischemic heart disease Fraternal: Arthritis Sororal: Ischemic heart disease Review Of Systems Systemic: No systemic symptoms other than noted. In poor overall health and fatigue. Head: Headache chronic/recurring. Neck: No neck pain. Swollen glands in the neck. Eyes: Blurry vision. Cardiovascular: No chest pain or discomfort. Varicose veins. Pulmonary: No dyspnea. Chronic cough and wheezing. Gastrointestinal: Nausea and vomiting. No constipation. Genitourinary: Urinary loss of control. Endocrine: No endocrine symptoms other than noted. Muscle weakness and Weakness. Hematologic: No easy bleeding and no tendency for easy bruising. H/o anemia. Musculoskeletal: Back pain, muscle aches, muscle cramps, pain localized to one or more joints, and joint stiffness localized to one or more joints. Neurological: Dizziness, fainting, memory lapses or loss, convulsions, Falls, and numbness. Psychological: No psychological symptoms other than noted. Depression. Skin: No skin symptoms other than noted. Pruritus. Physical Findings - Vitals taken 04/29/2023 01:55 pm BP-Sitting R 140/80 mmHg Pulse Rate-Sitting 90 bpm Temp-Temporal 97.2 F Height 75 in Weight 245 lbs Body Mass Index 30.6 kg/m2 Body Surface Area 2.4 m2 Pain Level 7 Pain Level Note LOW BACK INTO LEFT HIP DOWN LEFT LEG TO TOES Oxygen Saturation 98 % Musculoskeletal System: General/bilateral: Musculoskeletal Scales: Value Lumbar oswestry score 80 Psychiatric: Psychiatric: Value PHQ9 score: 15 Constitutional: Well developed. Well nourished. In no acute distress. HEENT: NC/AT. Anicteric. Clear Conjunctiva. PERRLA. MM's pink/moist. No discharge via nares. No lesions of EAC. No discharge of EAC. Neck supple. No lymphadenopathy in cervical chain bilaterally. CVS: . No peripheral edema. Peripheral pulses palpable in all extremities. Pulmonary: Normal chest expansion bilaterally. Spine/MSK: Tenderness bilateral mid to lower lumbar facet joints. Positive SLR bilaterally. Decrease lumbar range of motion in all planes. Positive lumbar facet loading. Gait: antalgic. Ambulate with walker. No steppage gait. Tandem gait normal. Neuro: Awake. Alert. Oriented x3. Sensory deficit left lower extremity L5 dermatome. 4/5 with left foot resisted eversion. Psych: No apparent distress. Mood normal. Affect normal. No pain behaviors. Skin: No rash. Normal pigmentation. Normal temperature Tests - Test: Drugs of abuse screen Report Date: 04/29/2023 Lot # & Exp. Date [id number], 11-03-23 Normal Amphetamines NEG Normal Barbiturates NEG Normal Benzodiazepines NEG Normal Cocaine NEG Normal Ecstasy NEG Normal Methamphetamines NEG Normal Methadone NEG Normal Morphine NEG Normal Oxycodone NEG Normal Phencyclidine NEG Normal TCA/Tricyclic Antidepressants POS Abnormal Cannabis NEG Normal Educational Testing: Questionnaires PHQ-9: Value SOAPP-R: total score 19 Assessment - Bulging lumbar disc [M51.26 - Other intervertebral disc displacement, lumbar region] - Lumbar spondylosis with radiculopathy [M47.26 - Other spondylosis with radiculopathy, lumbar region] - SPINAL STENOSIS LUMBAR REGION W/O NEUROGENIC CLAUDICATION [M48.061 - Spinal stenosis, lumbar region without neurogenic claudication] Therapy - Pain radiates to both sides of buttocks. - Clinical summary provided to patient Patient understands and agrees with treatment plan. Questions answered. - Walker. - A standard wheelchair. Discussed We will obtain records from [facility] to review type of injection done while hospitalized. Do not recommend long-term use of hydromorphone. She has numerous allergies reported to medication. Recommend the use of Nucynta ER. This medication is indicated for neuropathic pain. Also recommend switching gabapentin to pregabalin 150 mg BID. Plan StartCited - joint terminal attack controller (current) use of opiate analgesic In office procedures/*Clia Waived Labs: Urine Drug Screen Lab: PRESCRIBED DRUGS, medMATCH(R) Lab: DRUG MONITOR, FENTANYL, SCREEN, URINE Lab: DRUG MONITORING, PANEL 6 WITH CONFIRMATION, URINE EndCited StartCited - Other Y ORDER/COMMENT I need records from [facility]. She apparently underwent an injection of some type EndCited StartCited - Other spondylosis with radiculopathy, lumbar region Pregabalin 150 MG capsule 1 CAPSULE TWO TIMES A DAYstop gabapentin, 30 days, 0 refills Nucynta ER 100 MG tablet 1 tab every 12 hours by mouth, 15 days, 0 refills EndCited Practice Management Use of tobacco assessment performed Review of medications documented; Standardized depression screening: positive for symptoms and for adult impression and score 15. A total of [50 ] minutes were spent on this patient's evaluation, as above, with greater than 50% of this time spent in direct [id number] counseling and coordination of care. Results of this interaction were communicated directly to the patient's referring and/or primary care provider. Multiple documents have been reviewed today in conjunction with her evaluation including online prescription monitoring database, laboratory data, imaging studies, previous specialist provider notes and primary care provider notes. For all patients on acute or chronic opioids, ongoing need for opioid analgesia is assessed at each visit with consideration of discontinuation or wean to lowest effective dose when possible and appropriate. Contents of this document have been edited for correctness, but may be subject to typographical or head bander and liner operator errors. Verify all diagnoses, medications, dosages, and patient instructions with patient and/or the originator of this document. Health Reminders - Assess BMI satisfied 04/29/2023. - Assess Tobacco Use satisfied 04/29/2023. - Depression Screening satisfied 04/29/2023.
--- OUTSIDE RECORDS SUMMARY | 2024-11-25 21:30 | XMS_ITS | Referral Summary ---
Author Organization [facility] Address [address] [place] [address] Care Team Providers Care Basketball Commentator Name Role Phone Denver Veliz MD Unavailable Eriberto Skelton MD Unavailable Dalton Fragoso MD Unavailable [phone] Eli Abbott MD Primary Care Provider Encounters Date Type Department Care Team Description 11/16/2024 Telephone [facility] Gastroenterology at [address] [place] [address] Janelle Mina 11/15/2024 Telephone [facility] Ophthalmology [address] [place] [phone] Nasima Ramirez MD 11/15/2024 1:49 AM CDT - 11/15/2024 2:57 AM CDT Emergency [facility] Emergency Department [address] [place] [address] Chidi Mclain MD Herpes zoster with ophthalmic complication, unspecified herpes zoster eye disease (Primary Dx); Herpes zoster with complication Discharge Disposition: Left Against Medical Advice 11/15/2024 12:18 AM CDT - 11/15/2024 1:35 AM CDT Emergency [facility] Emergency Department [address] [place] [address] Discharge Disposition: Left without being seen 11/11/2024 Telephone [facility] Imaging and Radiology [address] [place] [address] Nadja Lacy, detail supervisor Only 11/02/2024 9:13 AM CDT - 11/02/2024 11:59 PM CDT Hospital Encounter [facility] and Radiology [address] [place] [address] Encounter for screening mammogram for malignant neoplasm of breast Discharge Disposition: Discharge to home or self care 10/07/2024 Telephone [facility] In[facility] [address] [facility] Medical Office Building [address] [place] [address] Amy Camargo RN 09/29/2024 8:57 PM CCNA - 09/29/2024 11:59 PM CCNA Hospital Encounter [facility] Emergency, Room R Discharge Disposition: Discharge to home or self care 09/29/2024 9:10 PM CCNA - 09/29/2024 11:10 PM CCNA Emergency [facility] Emergency Department [address] [place] [address] Cristina Veras MD Breakthrough seizure (HCC) (Primary Dx) Discharge Disposition: Discharge to home or self care 09/09/2024 Telephone [facility] [address] [place] [address] [place] [phone] Tari Elias MA 09/09/2024 1:15 PM CCNA Office Visit [facility] [address] [place] [address] [place] [phone] Chhaya Saxena NP Carpal tunnel syndrome, bilateral (Primary Dx); Transient ischemic attack (TIA); Recurrent syncope; Seizures, generalized convulsive (HCC) 08/28/2024 3:33 PM CCNA - 08/28/2024 11:59 PM CCNA Hospital Encounter [facility] [address] [place] [address] Acute bronchitis, unspecified organism Discharge Disposition: Discharge [...] 25 026 Active brivaracetam (Briviact) 50 mg tabletIndications: Focal Epilepsy Take 1 tablet (50 mg total) by mouth 2 (two) times a day Take one tablet of 50 mg tablet by mouth twice a day 60 tablet 3 09/09/19 Active Additional Information Patient taking differently: 75 mgoral 2 times daily, Take one tablet of 50 mg tablet by mouth twice a day, Indications: Focal Epilepsy, Reported on 11/16/2024 carBAMazepine ER (CARBATROL) 100 mg 12 hr capsuleIndications :Epilepsy, unspecified, not intractable, without status epilepticus (HCC) TAKE ONE CAPSULE TWICE A DAY FOR ONE WEEK, THEN TAKE TWO CAPSULES TWICE A DAY. 120 capsule 3 09/21/19 Active Additional Information Patient taking differently: 200 mg, Take one capsule twice a day for one week, then take two capsules twice a day., Reported on 11/16/2024 valACYclovir (VALTREX) 1 gram tablet Take 1 tablet (1,000 mg total) by mouth 3 (three) times a day 21 tablet 11/16/19 Active rosuvastatin (CRESTOR) 10 mg tablet Take 1 tablet (10 mg total) by mouth daily Active omega-3 fatty acids-fish oil 300-1,000 mg capsule Take 2 capsules (2 g total) by mouth daily Active ferrous sulfate 325 mg (65 mg of elemental iron) tabletIndications: Iron Deficiency Anemia Take 1 tablet (325 mg total) by mouth daily with breakfast Active cyanocobalamin (Vitamin B-12) 1,000 mcg tabletIndications: Prevention of Vitamin B12 Deficiency Take 1 tablet (1,000 mcg total) by mouth daily Active cyanocobalamin (Vitamin B-12) 1,000 mcg/mL injection Inject 1,000 mcg/kg into the muscle as instructed Once a month Active coenzyme Q10 200 mg capsule Take 1 capsule (200 mg total) by mouth daily Active Active Problems Problem Noted Date Diagnosed [...] procedure 12/20/2023 PICC (peripherally inserted central catheter) [facility] 12/20/2023 Transient ischemic attack (TIA) 11/29/2023 Numbness and tingling of left upper extremity Postoperative back pain 11/27/2023 Osteopenia 11/26/2023 Overview (01/16/2024): dexa 07/27 Mixed anxiety and depressive disorder 11/26/2023 Overview (01/16/2024): -pt has psych at [facility] Spinal stenosis of lumbar re gion without [...] loss Assessment & Plan (09/16/2023 3:03 PM CCNA): BMI 32.20 Discussed ADA diet Encourage exercising as tolerated Recommend weight loss Abrasion of forearm, left 09/16/2023 Assessment & Plan (09/16/2023 2:58 PM CCNA): Abrasion is healing well without signs or symptoms of infection. Complete the Augmentin. Continue wound care as discussed Bilateral leg numbness 04/23/2023 Assessment & Plan (09/16/2023 3:00 PM CCNA): As a result of bilateral sciatica. Accelerated [...] 04/02/2023 Assessment & Plan (09/16/2023 3:05 PM CCNA): Scheduled for spinal fusion on 10/02/2023 by [...] surgeries. Assessment & Plan (09/16/2023 3:01 PM CCNA): Last reported seizure was on 09/07/2023 Her [...] 02/14/2023 Assessment & Plan (09/16/2023 3:05 PM CCNA): Status post hysterectomy with BSO Assessment & Plan (04/01/2023 3:47 PM CDT): S/p total hysterectomy Positive D-dimer 12/21/2022 Gallbladder with possible hydrops and stone 12/03 Diet-controlled diabetes mellitus 12/21/2022 Assessment & Plan (10/18/2023 10:53 AM CDT): Well controlled. Tries to follow an ADA diet. Her hemoglobin A1c on 10/15/2023 was 5.5%. No current medications. Assessment & Plan (09/16/2023 3:04 PM CCNA): Patient can not recall her last A1c [...] visit Assessment & Plan (09/16/2023 3:02 PM CCNA): She currently smokes 1/2 pack per day [...] 01/15/2008 Assessment & Plan (09/16/2023 2:59 PM CCNA): Managed by Psychiatry, Dr. Fragoso No current medications Denies any SI/HI/SH Anxiety 01/15/2008 Assessment & Plan (09/16/2023 3:00 PM CCNA): Stable. Managed by Dr. Fragoso. No current [...] exercise Assessment & Plan (09/16/2023 3:07 PM CCNA): BP 135/88 in the office today She [...] 04/08/2023 Assessment & Plan (09/16/2023 3:07 PM CCNA): See above Seizure 03/31/2023 10/17/2023 Right arm pain 02/15/2023 10/17/2023 Right arm weakness 02/15/2023 Tobacco use disorder 02/13/2018 024 Assessment & Plan (09/16/2023 3:08 PM CCNA): Currently smokes 1/2 pack per day Not interested in quitting at this time but will discuss at next office visit Seizure disorder 12/19/2013 10/17/2023 Overview (11/08/2016): Seizure disorder Assessment & Plan (09/16/2023 3:08 PM CCNA): Managed by Dr. Barraza Immunizations Immunization Administration [...] drink = 0.6 oz pur e alcohol) [facility] [employer] Answer Date Recorded In the past 12 months has e electric, gas, oil, or water company threatened to shut off services in your [...] often do you attend chur ch or zoroastrianism services? Never 04/20/2024 Do you belong to any clubs o r organizations such as quaker groups, unions, fraternal or athletic groups, or school groups? No 04/20/2024 How often do you attend meet ings of the clubs or organizations you belong to? Never 04/20/2024 Are you , , di vorced, , never , or living with a partner? 04/20/2024 AUDIT-C Answer Date Recorded Q1: How often do you have a drink containing alcohol? Never 11/16/2024 Q2: How many drinks containi ng alcohol do you have on a typical day when you are drinking? Patient does not drink Q3: How often do you have si x or more drinks on one occasion? Never 11/16/2024 Overall Financial Resource Strain (CARDIA) Answe r [...] place to sleep or slept in a nursing home (including now)? No 04/24/2023 Housing Stability Vital Sign Answer Saul e Recorded In the last 12 months, was t here a time when you were not able to pay the mortgage or rent on time? No 04/20/2024 In the past 12 months, how m any times have you moved where you were living? 0 04/20/2024 At any time in the past 12 m [facility], were you homeless or living in a nursing home (including now)? No 04/20/2024 Personal Safety Answer Date Recorded Have you ever been in or are you currently in a harmful physical or emotional relationship or is someone making you feel afraid or unsafe? Denies 11/15/2024 Comments No Sex and Gender Information Value Date Recorded Sex Assigned at Not on file Legal Sex Female 12:47 AM CCNA Gender Identity Not on file Sexual Orientation Not on file Last Filed Vital Signs Vital Sign Reading Time Taken Comments Blood Pressure 146/83 11/15/2024 1:46 AM CDT Pulse 82 11/15/2024 1:46 AM CDT Temperature 36.5 C (97.7 F) 11/15/2024 1:46 AM CDT Respiratory Rate 18 11/15/2024 1:46 AM CDT Oxygen Saturation 100% 11/15/2024 1:46 AM CDT Inhaled Oxygen Concentration - - Weight 109.3 kg (241 lb) 11/15/2024 1:46 AM CDT Height 190.5 cm (6' 3 ) 11/15/2024 1:46 AM CDT Body Mass Index 30.12 11/15/2024 1:46 AM CDT Plan of Treatment Not on file Procedures Procedure Name Priority Date/Time Associated Diagnosis Comments SCREENING MAMMOGRAM BILATERAL W RC Schedule Routine, Read Routine (OP Routine) 11/02/2024 9:43 AM CDT Encounter for screening mammogram for malignant neoplasm of breast EGFR STAT 09/29/2024 9:56 PM CCNA DIFFERENTIAL AUTO STAT 09/29/2024 9:5 6 PM CCNA COMPREHENSIVE METABOLIC PANEL STAT 09/29/2024 9:56 PM CCNA CBC WITH AUTO DIFFERENTIAL STAT 09/29/2024 9:56 PM CCNA XR CHEST PA LATERAL 2 VIEWS Schedule Routine, Read Routine (OP Routine) 08/28/2024 3:44 PM CCNA Acute bronchitis, unspecified organism HEMOGLOBIN A1C Routine 01/16/2024 10:50 AM CDT Mixed diabetic hyperlipidemia associated with type 2 diabetes mellitus (HCC) LIPID PANEL Routine 01/16/2024 10:50 AM CDT Mixed diabetic hyperlipidemia associated with type 2 diabetes mellitus (HCC) ALBUMIN CREATININE RATIO, URINE Routine 01/16/2024 10:50 AM CDT Mixed diabetic hyperlipidemia associated with type 2 diabetes mellitus (HCC) HEPATITIS PANEL, ACUTE Routine 05/16/2014 5:29 PM CDT from Last 3 Months or Most Recently Relevant to Health Maintenance Results * Screening Mammogram Bilateral W Rc (11/02/2024 9:43 AM CDT) Anatomical Region Laterality Modality Breast Bilateral Mammography 11/02/2024 9:56 AM CDT Impressions 11/02/2024 9:56 AM CDT No evidence of malignancy in either breast. FINAL ASSESSMENT: BI-RADS Category 1: Negative. RECOMMENDATION: Recommend return for annual screening mammogram in 12 months. Electronically signed by: Cristóbal Monroe II, D.O. Narrative 11/02/2024 9:56 AM CDT EXAMINATION: BILATERAL SCREENING MAMMOGRAM COMPARISON: 06/02/2013 TECHNIQUE: Full-field 2D and digital breast tomosynthesis (DBT) images were obtained. CAD was utilized. BREAST PARENCHYMAL COMPOSITION: The breasts are almost entirely fatty. FINDINGS: There is no suspicious mass, calcification, or distortion in either breast. us Eli Abbott MD IMG MAMMO PROCEDURES Final Re sult * eGFR (09/29/2024 9:56 PM CCNA) eGFR >90 >=60 mL/min/1. 73 m2 Comment: [...] last reviewed 2021. Blood 09/29/2024 9:56 PM CCNA 09/29/2024 9:57 PM CCNA us Cristina Veras MD LAB BLOOD ORDERABLES Final Resul t [facility] (HARRY) 1 [facility] Department [place] [address] * Differential, auto (09/29/2024 9:56 PM CCNA) Neutrophil abs 3.2 1.5 - 6.5 K/cumm [...] revised on 2017. Blood 09/29/2024 9:56 PM CCNA 09/29/2024 9:57 PM CCNA us Cristina Veras MD LAB BLOOD ORDERABLES Final Resul t [facility] ([facility]) 1 [facility] Department [place] [address] * (ABNORMAL) CBC with auto differential (09/29/2024 9:56 PM CCNA) WBC 5.9 3.8 - 9.9 K/cumm Hgb [...] [facility] ([facility]ARRY) Blood 09/29/2024 9:56 PM CCNA 09/29/2024 9:57 PM CCNA us Cristina Veras MD LAB BLOOD ORDERABLES Final Resul t [facility] ([place]) 1 [facility] Department [place] [address] * Comprehensive metabolic panel (09/29/2024 9:56 PM CCNA) Sodium 137 135 - 145 mmol/L Potassium, [...] (HARRY) AST 28 10 - 45 Units/L [facility] (HARRY) Comment:Slightly Hemolyzed S pecimen Blood 09/29/2024 9:56 PM CCNA 09/29/2024 9:57 PM CCNA us Cristina Veras MD LAB BLOOD ORDERABLES Final Resul t [facility] (HARRY) 1 [facility] Department [place] [address] * XR Chest PA Lateral 2 Views (08/28/2024 3:44 PM CCNA) Anatomical Region Laterality Modality Body, Chest N/A Computed Radiogr aphy 08/30/2024 11:0 7 PM CCNA Narrative 08/30/2024 11:08 PM CCNA EXAM DESCRIPTION: XR CHEST PA LATERAL 2 [...] Jin Barrett M.D. KT: AMALIA Report ID: [id number] Reading Location: [id number] Procedure Note Jin Barrett MD - 08/30/2024 [...] Jin Barrett M.D. KT: KT Report ID: [id number] Reading Location: [place] [address] us Sue Snow MD IMG XR PROCEDURES Final Resul t * Albumin Creatinine Ratio, Urine (01/16/2024 10:50 AM CDT) Albumin Ur <12.0 mg/L Comment: Interpretive Data No reference range established. Current interpretive data was last revised 2018. Creatinine Ur 143.7 mg/dL [facility] Comment: Interpretive Data No reference range established. Current interpretive data was last revised 2018. Albumin Creatinine Ratio, Ur <8 1 - 29 mg/g [facility] Urine 01/16/2024 10:5 0 AM CDT 01/16/2024 7:12 PM CDT Anna Cassidy NP LAB URINE ORDERABLES Final Re sult [facility] [address] Department [place] [address] * Hemoglobin A1c (01/16/2024 10:50 AM CDT) Hgb A1C 5.3 4.0 - 5.6 % Estimated Average Glucose 105 mg/dL [facility] Comment: The ADA recommends reporting an estimated Average Glucose (eAG) with all Hemoglobin A1c results using the equation derived from a study of 507 normal and diabetic adults. Minority populations were underrepresented and children were not included. (Diabetes Care 31:5426-1165, 2008). The eAG is not equivalent to a fasting glucose. Blood 01/16/2024 10:5 0 AM CDT 01/16/2024 7:12 PM CDT us Anna Cassidy ICE CREAM FREEZER ASSISTANT LAB BLOOD ORDERABLES Final Re sult [facility] [address] Department [place] [address] * (ABNORMAL) Lipid panel (01/16/2024 10:50 AM [...] revised on 2018. Chol/HDL ratio 6 [facility] Blood 01/16/2024 10:5 0 AM CDT 01/16/2024 7:12 PM CDT us Anna Cassidy NP LAB BLOOD ORDERABLES Final Re sult [facility] [address] Department [place] [address] * Hepatitis panel, acute (05/16/2014 5:29 PM CDT) HepBsAg NONREACT NONREACTIVE Comment: Siemens CentaurXP using AVRIL (chemiluminescent immunoassay) technology. NONREACTIVE: IgM antibodies to Hepatitis B Surface antigen not detected. REACTIVE: IgM antibodies to Hepatitis B Surface antigen detected. Reactive results will be confirmed by neutralization testing. HBsAb (immune status) NONREACT NONREACTIVE 05/16/2014 6:17 PM T FOR[facility] NAMED [facility] HISTORICAL RESULTS Comment: Siemens CentaurXP using AVRIL (chemiluminescent immunoassay) technology. NONREACTIVE: IgM antibodies to Hepatitis B Surface antibody not detected. REACTIVE: IgM antibodies to Hepatitis B Surface antibody detected. Hep B core IgM NONREACT NONREACTIVE 4 7:07 PM [facility] HISTORICAL RESULTS Comment: Siemens CentaurXP using AVRIL [...] A detected. Hep C Ab NONREACT NONREACTIVE Comment: Siemens CentaurXP using AVRIL [...] MICROBIOLOGY - GENERAL O RDERABLES Final Result FORMER[facility] NAMED [facility] HISTORICAL RESULTS from Last 3 Months or Most Recently Relevant to Health Maintenance Insurance Advance Directives For more information, please contact: [phone] Documents on File Type Date Recorded Patient Gum Maker Expl anation ADVANCE DIRECTIVE 04/29/2023 4:00 PM DNR ADVANCE DIRECTIVE 04/26/2023 4:27 PM POWER OF OPERATIONAL METEOROLOGIST-MEDICAL Power of Aluminum Polisher 04/24/2023 8:00 AM * Full Code (Latest [...] 12:32 PM 04/26/2023 12:17 AM Care Teams Basketball Commentator Relationship Specialty Start Date End Date Eli Abbott MD [address] [address] PCP - General Obstetrics and Gynecology 10/07/24 [place] [id number] [address] Consulting Physician Gastroenterology 12/22/22 [place] [address] [address] Consulting Physician Neurosurgery 09/16/23 Dalton Fragoso MD [address] [place] [address] Referring Physician Psychiatry & Neurology 09/16/23
--- OUTSIDE RECORDS SUMMARY | 2024-11-25 21:30 | XMS_ITS | Encounter Summary ---
Author Organization [facility] Address [address] [place] [address] Phone Care Team Providers Care Agricultural Specialist Name Role Phone Brett Chávez MD Primary Care Provider [phone] Cedric Martinez MD Primary Care Provider [phone] Sue Snow MD Primary Care Provider [phone] Jn Polo PAC Unavailable [phone] Eli Abbott MD Primary Care Provider [phone] Reason for Visit * Reason Comments Medication Refill Encounter Details Date Type Department Care Team (Late st Contact Info) Description 07/18/2020 Refill [facility] PULMONOLOGY [address] [place] [phone] Cruz Velasquez MD [address] [place] [address] Medication Refill Social History Tobacco [...] COVID-19? No / Unsure 07/14/2020 11:34 PM YEAST SUPERVISOR documented as of this encounter Miscellaneous Notes * Telephone Encounter - Thelma Paez - 07/19/2020 7:58 AM CST Patient has not been seen in the past 6 months. T SUPERVISOR documented in this encounter Plan of Treatment Not on file documented as of this encounter Visit Diagnoses Not on filedocumented in this encounter Additional Health Concerns Infection Onset Date Last Indicated Resolved Time COVID - 19 08/01/2020 08/01/2020 08/05/2020 1:58 PM YEAST SUPERVISOR COVID - 19 08/17/2021 08/17/2021 08/20/2021 6:06 AM YEAST SUPERVISOR COVID - 19 Confirmed 08/17/2021 08/17/2021 022 12:16 AM YEAST SUPERVISOR COVID - 19 07/26/2022 09/17/2022 09/17/2022 8:04 AM YEAST SUPERVISOR COVID - 19 07/20/2024 07/20/2024 07/20/2024 9:02 PM YEAST SUPERVISOR documented as of this encounter Care Teams Agricultural Specialist Relationship Specialty Start Date End Date Brett Chávez MD [address] [place] [address] PCP - General Family Medicine 06/12/15 03/25/23 Cedric [place] MD [address] [place] [address] PCP - General Family Medicine 03/26/23 02/04/24 Sue Snow MD [address] [place] [address] PCP - General Internal Medicine 02/05/24 09/02/24 Eli Abbott MD [address] [place] [address] PCP - General Family Medicine 09/03/24 Jn Polo PAC [address] [place] [address] Physician Inside Outside Sales Representative Physician Inside Outside Sales Representative 07/13/24 documented as of this encounter
--- OUTSIDE RECORDS SUMMARY | 2024-11-25 21:30 | XMS_ITS | Encounter Summary ---
Author Organization [facility] Health Address [address] [place] [address] Care Team Providers Care Storage Engineer Name Role Phone Ally Chambers RN Unavailable [phone] Eli Abbott MD Primary Care Provider [phone] Encounter Details Date Type Department Care Team (Late st Contact Info) Description 11/24/2024 Telephone [facility] - Neurology [address] [place] [address], [place] [address] Charanjit Jackson MD [address] [place] [phone] Social History Tobacco Use Types Packs/Day Years [...] Recorded Patient Health Questionnaire-2 Score 0 04/27/2024 [facility] - Occupational Stress Questionnaire Answer Date Recorded [...] place to sleep or slept in a alf (including now)? 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 Answer Date of Assessment Author No 12/13/2023 2:29 AM Glenn Marshall RN * Is person blind or have serious difficulty seeing? Answer Date of Assessment Author No 12/13/2023 2:29 AM Glenn Marshall RN * Does person have serious difficulty walking/climbing stairs? Answer Date of Assessment Author No 12/13/2023 2:29 AM Glenn Marshall RN * Does person have difficulty dressing/bathing? Answer Date of Assessment Author No 12/13/2023 2:29 AM CDT Glenn Barrow RN * Does person have difficulty doing errands alone? Answer Date of Assessment Author No 12/13/2023 2:29 AM CDT Glenn Barrow RN documented as of this encounter Mental Status * Does person have difficulty concentrating/remembering/making decisions? Answer Entry Date Author No 12/13/2023 2:29 AM CDT Glenn Barrow RN documented in this encounter Miscellaneous Notes * Telephone Encounter - Robina Rich - 11/24/2024 11:11 AM CDT Current Provider: Dr Jackson Reason for Call: Pt called said that her script for the nasal spray was never received. Patient Call Back Number: [phone] documented in this encounter Plan of Treatment Upcoming Encounters Date Type Department Care Team (Late st Contact Info) Description 11/27/2024 10:30 AM CDT Appointment [facility] EEG/EMG [address] [place] [address] Charanjit Jackson MD [address] [place] [address] [address] [place] [address] 03/03/2025 4:00 PM CDT Office Visit [facility] - Neurology [address] [place] [phone] Francie Napoles PA-C [address] [place] [address] 03/10/2025 2:30 PM CDT Office Visit [facility] - Neurology [address] [place] [phone] Charanjit Jackson MD [address] [place] [address] [address] [place] [address] documented as of this encounter Visit Diagnoses Not on filedocumented in this encounter Care Teams Storage Engineer Relationship Specialty Start Date End Date Eli Abbott MD [address] [place] [address] PCP - General Family Medicine 11/24/24 Ally Chambers, RN Paper Box Cutter 09/12/16 documented as of this encounter
--- OUTSIDE RECORDS SUMMARY | 2024-11-25 21:30 | XMS_ITS | Clinical Summary ---
Author Organization [facility] Address [address] [place] [address] Phone Care Team Providers Care Instructor Of Spanish Name Role Phone Jn Polo Byron PAC Unavailable [phone] Eli Abbott MD Primary Care Provider [phone] Allergies Active Allergy Reactions Criticality Noted Date Comments Acetaminophen Other (see Comments),Nausea Medium 04/29/2023 Note: LIVER PAIN Bee Pollen Anaphylaxis High 03/21/2013 Other reaction(s): Other (See Comments) . Bee Venom Anaphylaxis 09/15/2016 Wasps or hornets Carisoprodol Other (see Comments),Unknown High 06/17/2022 Ciprofloxacin Rash,Itching 10/22/2015 Fentanyl Anaphylaxis,Itching, S welling High 10/22/2015 Iodine Other (see Comments),Rash Medium 02/20/2022 Iodinated Contrast Media Hives 01/05/2019 Levofloxacin In D5w Itching 10/22/2015 redness Morphine Hives 03/12/2024 Other-Environmental Allergen (Not Found In Search) Hives,Itching High 08/29/2022 Cat scan contrast - Whelps, redness per patient statement Other-Food Allergen (Not Found In Search) Swelling High 08/29/2022 Lobster - Wheezing, and swelling of her lips Oxycodone Nausea,Vomiting Low 04/29/2023 Oxycodone-Acetaminophen Nausea,Other (se e Comments) 08/12/2023 Liver pain Povidone Iodine Hives Medium 12/12/2023 Povidone-Iodine Other (see Comments) 08/29/2022 Skin irritation, redness Ceftriaxone Anaphylaxis,Itching High 06/12/2015 whelps and redness Sulfa Antibiotics Rash 10/22/2015 Sulfamethoxazole-Trimet hoprim Rash Medium 06/17/2022 Tramadol Other (see Comments) High 12/15/2019 Other reaction(s): Other (See comments) Reaction: Other Pt has tolerated dilaudid Reaction: seizure Wasp Venom Anaphylaxis,Swelling High 10/27/2024 Medications Multiple Vitamins-Heel Slicker als (MULTIVITAMIN PO) Take 1 Tablet by mouth daily. Womens 50 Plus Active albuterol (PROVENTIL, VENTOLIN) (2.5 MG/3ML) 0.083% Nebulizer Soln INHALE 3ML 3 TIMES A DAY BY NEBULIZATION ROUTE NEEDED FOR 30 DAYS. 270 mL 11/12/19 19 Active Additional Information Patient not taking.Reported on 11/05/2024 VENTOLIN HFA 108 (90 Base) MCG/ACT Aerosol Solution INHALE 2 PUFFS BY MOUTH EVERY 4 HOURS NEEDED FOR WHEEZE 18 Inhaler 5 12/21/19 20 Active Ferrous Sulfate (Iron) 325 (65 Fe) MG Tablet Take 325 mg by mouth daily. Active Holbrook 3-6-9 Fatty Acids (OMEGA 3-6-9 COMPLEX PO) [...] by mouth daily. Active carBAMazepine (CARBATROL) 100 MG CAPSULE SR 12 HR Take 200 mg by mouth 2 times daily (with meals). Active naproxen (NAPROSYN) 250 MG Tablet Take 250 mg by mouth 2 times daily (with meals). Active metoclopramide (REGLAN) 10 MG Tablet Take 1 Tablet by mouth 4 times daily as needed for Nausea - 1st line. 10 Tablet 04/13/20 24 Active Additional Information Patient not taking.Reported on 11/05/2024 HYDROcodone-ib uprofen (VICOPROFEN) 7.5-200 MG TabletIndicati ons:Acute pain of right shoulder Take 1 Tablet by mouth every 4 hours as needed for Moderate or more severe pain. 20 Tablet 07/09/20 24 Active ondansetron (ZOFRAN) 4 MG Tablet Take 1-2 Tablets by mouth every 8 hours as needed for Nausea - 1st line. 30 Tablet 07/09/20 24 Active pantoprazole (PROTONIX) 40 MG Tablet Delayed Response Take 1 Tablet by mouth daily. 30 Tablet 10/10/19 25 Active Briviact 75 MG Tablet Take 1 Tablet by mouth 2 times daily. Active rosuvastatin (CRESTOR) 10 MG Tablet Take 10 mg by mouth daily. Active Cyanocobalamin (Vitamin B-12 CR) 1000 MCG Tablet Controlled Release Take 1 Tablet by mouth daily. Active Vitamin D-Vitamin K (VITAMIN K2-VITAMIN D3 PO) Take 1 Tablet by mouth daily. Active Ubiquinone (ULTRA COQ10 PO) Take 2 Capsules by mouth daily. 200 mg Active Misc. Devices (Walker) Misc Use as needed. A ctive Menthol, Topical Analgesic, (Biofreeze Roll-On) 4 % Gel Use as directed. 04/29/20 23 Active celecoxib (CeleBREX) 100 MG Capsule Take 100 mg by mouth daily. Active famotidine (PEPCID) 20 MG Tablet Take 20 mg by mouth 2 times daily. Active gabapentin (NEURONTIN) 300 MG Capsule Take 300 mg by mouth every 8 hours. Active HYDROcodone-ac etaminophen (NORCO) 7.5-325 MG Tablet Take 1 Tablet by mouth every 4 hours as needed. Active HYDROmorphone (DILAUDID) 2 MG Tablet Take 2 mg by mouth every 6 hours as needed. Active lidocaine (LIDODERM) 5 % Patch 1 Patch by Transdermal route every 24 hours. 11/04/19 25 Active sertraline (ZOLOFT) 50 MG Tablet Take 50 mg by mouth daily. Active carBAMazepine (TEGretol XR) 100 MG TABLET SR 12 HR Take 2 Capsules by mouth 2 times daily. Active ondansetron (ZOFRAN) 4 MG Tablet Take 1 Tablet by mouth every 8 hours. Active Potassium 99 MG Tablet Take 1 Tablet by mouth daily. 025 Discontin ued(Med List Clean Up) dulaglutide (Trulicity) 0.75 MG/0.5ML Solution Pen-injector INJECT 0.75 MG UNDER THE SKIN ONCE A WEEK 06/07/20 Discontin ued(Med List Clean Up) metoclopramide (REGLAN) 10 MG Tablet Take 1 Tablet by mouth 4 times daily as needed for Nausea - 1st line. 10 Tablet 08/31/19 24 Discontin ued(Med List Clean Up) lisinopril (PRINIVIL, ZESTRIL) 10 MG Tablet Take 10 mg by mouth daily. Discontin ued(Med List Clean Up) cyclobenzaprin e (FLEXERIL) 10 MG Tablet Take 10 mg by mouth 3 times daily as needed. Discontin ued(Med List Clean Up) HYDROcodone-ac etaminophen (NORCO) 5-325 MG TabletIndicati ons:Neck pain,Acute pain of right shoulder,Right elbow pain,Contusion of right hand, initial encounter,Low back pain,Contusion of left knee, initial encounter Take 1 Tablet by mouth every 8 hours as needed for Moderate or more severe pain. 12 Tablet 02/05/20 24 Discontin ued(Med List Clean Up) Hydrocortisone , Perianal, (Anusol-HC) 2.5 % Cream Apply daily. Apply to rectum as directed. 28 g 03/12/20 24 Discontin ued(Med List Clean Up) predniSONE (DELTASONE) 50 MG Tablet Take 1 Tablet by mouth daily. 5 Tablet 04/18/20 24 Discontin ued(Med List Clean Up) ondansetron (ZOFRAN) 4 MG Tablet Take 1 Tablet by mouth every 8 hours as needed for Nausea - 1st line. 10 Tablet 04/23/20 24 Discontin ued(Med List Clean Up) albuterol 108 (90 Base) MCG/ACT Aerosol Solution take 2 Puffs by inhalation every 6 hours as needed for Cough or Wheezing. 8.5 g 2 08/09/19 25 Discontin ued(Med List Clean Up) levETIRAcetam (KEPPRA) 250 MG Tablet Take 250 mg by mouth 2 times daily. Discontin ued(Med List Clean Up) atorvastatin (LIPITOR) 10 MG Tablet Take 10 mg by mouth daily. Discontin ued(Med List Clean Up) triamcinolone (KENALOG) 0.1 % Cream Apply 3 times daily. Application Site: rash (Description and Location) 30 g 10/12/19 25 025 Discontin ued(Med List Clean Up) metoclopramide (REGLAN) 10 MG Tablet Take 1 Tablet by mouth 4 times daily as needed for Nausea - 1st line. 10 Tablet 10/12/19 025 Discontin ued(Med List Clean Up) metoclopramide (Reglan) 10 MG TabletIndicati ons:Nausea and Vomiting Take 1 Tablet by mouth 4 times daily. Indications: Nausea and Vomiting 60 Tablet 10/15/19 Discontin ued(Med List Clean Up) Brivaracetam 100 MG Tablet Take 1 Tablet by mouth 2 times daily. Will start after 75 mg done. 11/20/19 025 Discontin ued(Med List Clean Up) Active Problems Problem Noted Date Diagnosed Date Tear of medial meniscus of left knee, initial en counter 09/06/2022 Panlobular emphysema 02/13/2018 AMANDA (obstructive sleep apnea) 02/13/2018 Tobacco use disorder 02/13/2018 Non morbid obesity 02/13/2018 Pulmonary hypertension 02/13/2018 Encounters Date Type Department Care Team Description 11/05/2024 9:00 AM CDT Office Visit [facility] Orthopedic Surgery [facility] [place] [address] [place] [address] Jn Polo PAC Right shoulder pain, unspecified chronicity (Primary Dx); Rotator cuff tendonitis, right Discharge Disposition: Discharged to home or Selfcare 11/05/2024 Travel 11/03/2024 Results Follow-Up [facility] Orthopedic [facility] [address] [place] [address] Shirley Corral MA MRI RIGHT SHOULDER WO CONTRAST 10/28/2024 4:23 PM CDT - 10/28/2024 11:59 PM CDT [facility] [address] [place] [address] Jn Polo, [facility] Discharge Disposition: Discharged to home or Selfcare 10/28/2024 Travel 10/27/2024 Nurse Triage [facility] [address] [place] [address] yCnthia Trotter RN COPD; Asthma 10/24/2024 2:45 PM CDT - 10/24/2024 4:34 PM CDT Emergency [facility] Emergency [address] [place] [address] Maame Ayala MD Seizure (HCC) Discharge Disposition: Left Against Medical Advice 10/24/2024 Travel 10/16/2024 Telephone [facility] [address] [place] [phone] Nadine Hernandez Patient Outreach 10/14/2024 6:09 PM CDT - 10/14/2024 9:58 PM CDT Emergency [facility] Emergency [address] [place] [address] Adrian Yap MD Hematemesis Discharge Disposition: Discharged to home or Selfcare 10/14/2024 Travel 10/11/2024 4:01 PM CDT - 10/11/2024 6:27 PM CDT Emergency [facility] Emergency [address] [place] [address] Arielle Galdamez MD Nausea and vomiting, unspecified vomiting type Discharge Disposition: Discharged to home or Selfcare 10/11/2024 Travel 10/09/2024 4:16 PM HOST/HOSTESS HEAD - 10/09/2024 7:19 PM HOST/HOSTESS HEAD Emergency [facility] Emergency [address] [place] [address] Maame Ayala MD Upper GI bleeding Discharge Disposition: Discharged to home or Selfcare 10/09/2024 Travel 09/03/2024 10:00 AM HOST/HOSTESS HEAD Office Visit [facility] [place] [address] [place] [address] Jn Polo L, PAC Right shoulder pain, unspecified chronicity (Primary Dx) Discharge Disposition: Discharged to home or Selfcare 09/03/2024 Travel from Last 3 Months Immunizations Immunization [...] Sign Reading Time Taken Comments Blood Pressure 118/82 11/05/2024 8:54 AM CDT Pulse 80 11/05/2024 8:54 AM CDT Temperature 36.6 C (97.8 F) 11/05/2024 8:54 AM CDT Respiratory Rate 14 10/24/2024 4:14 PM CDT Oxygen Saturation 89% 11/05/2024 8:54 AM CDT Inhaled Oxygen Concentration - - Weight 110.7 kg (244 lb) 11/05/2024 8:54 AM CDT Height 190.5 cm (6' 3 ) 11/05/2024 8:54 AM CDT Body Mass Index 30.5 11/05/2024 8:54 AM CDT Plan of Treatment Health Maintenance Due Date Last Done Comments Hepatitis B Immunization (1 of 3 - 19+ 3-dose series) 1997 Pneumococcal Immunization Combined (1 of 2 - PCV) 1997 SARS-COV-2 Immunization ( - season) 2024 Influenza Immunization (Seas on Ended) 2025 Mammogram 11/02/2025 11/02/2024, 10/31/2023, 10/31/2023 Immunochemical Fecal Occult Blood 2028 03/12/2024 Colonoscopy 08/13/2032 08/13/2022 Colorectal Cancer Screening 08/13/2032 Td Immunization Every 10 Yea rs (Adults With 1 Tdap) 02/04/2034 02/05/2024, 03/27/2021 Respiratory Syncytial Virus (RSV) Immunization (Adult) (1 - 1-dose 75+ series) 2053 08/13/2022 Hepatitis C Virus (HCV) Screening Completed 05/07/2013 DTaP/Tdap/Td Immunization Discontinued 2023, 03/27/2021 Discussion re Starting/Frequency of Mammograms Completed 11/02/2024, 10/31/2023 Meningococcal Immunization (ACWY) Aged Out No longer eligible based on patient's age to complete this topic Rotavirus Immunization Aged Out No lo nger eligible based on patient's age to complete this topic Procedures Procedure Name Priority Date/Time Associated Diagnosis Comments MRI RIGHT SHOULDER WO CONTRAST Routine 10/28/2024 5:26 PM CDT Right shoulder pain, unspecified chronicity CBC WITH AUTO DIFFERENTIAL STAT 10/24/2024 3:05 PM CDT LEVETIRACETAM STAT 10/24/2024 3:05 PM CDT VALPROIC ACID (DEPAKENE) STAT 10/24/2024 3:05 PM CDT CMP (COMPREHENSIVE METABOLIC PANEL) STAT 10/24/2024 3:05 PM CDT COMPLETE BLOOD COUNT (CBC) WITH DIFF STAT 10/24/2024 3:05 PM CDT POCT GLUCOSE STAT 10/24/2024 2:53 PM CDT EKG 12 LEAD STAT 10/24/2024 2:47 PM CDT EKG SCAN 10/24/2024 12:00 AM CDT EKG SCAN 10/24/2024 12:00 AM CDT URINALYSIS REFLEX IF INDICATED BY ABNORMAL RESULTS STAT 10/14/2024 7:27 PM CDT CBC WITH AUTO DIFFERENTIAL STAT 10/14/2024 7:18 PM CDT LIPASE STAT 10/14/2024 7:18 PM CDT COMPLETE BLOOD COUNT (CBC) WITH DIFF STAT 10/14/2024 7:18 PM CDT CMP (COMPREHENSIVE METABOLIC PANEL) STAT 10/14/2024 7:18 PM CDT CBC WITH AUTO DIFFERENTIAL STAT 10/11/2024 4:51 [...] CONTRAST Stat with Interpretation 10/09/2024 5:50 PM HOST/HOSTESS HEAD PROTIME (PT) (PROTHROMBIN TIME) STAT 10/09/2024 5:13 PM HOST/HOSTESS HEAD CBC WITH AUTO DIFFERENTIAL STAT 10/09/2024 2:26 PM HOST/HOSTESS HEAD MAGNESIUM (MG) STAT 10/09/2024 2:26 PM HOST/HOSTESS HEAD LIPASE STAT 10/09/2024 2:26 PM HOST/HOSTESS HEAD CMP (COMPREHENSIVE METABOLIC PANEL) STAT 10/09/2024 2:26 PM HOST/HOSTESS HEAD COMPLETE BLOOD COUNT (CBC) WITH DIFF STAT 10/09/2024 2:26 PM HOST/HOSTESS HEAD URINALYSIS REFLEX IF INDICATED BY ABNORMAL RESULTS STAT 10/09/2024 2:09 PM HOST/HOSTESS HEAD STOOL, OCCULT BLOOD, DIAGNOSTIC, VIA GUAIAC STAT 03/12/2024 5:19 PM CDT from Last 3 Months or Most Recently Relevant to Health Maintenance Results * MRI RIGHT SHOULDER WO CONTRAST (10/28/2024 5:26 PM CDT) Anatomical Region Laterality Modality UPPER EXTREMITY, shoulder Right Magnet ic Resonance 10/29/2024 9:09 AM CDT Impressions 10/29/2024 9:11 AM CDT IMPRESSION: Supraspinatus and infraspinatus xaos-zw-jatszggd tendinosis without discrete tearing. Subscapularis wftf-le-mufswluw tendinosis with interstitial tearing of the superior bundle. Acromioclavicular articulation mild osteoarthritis. Narrative 10/29/2024 9:11 AM CDT EXAM DESCRIPTION: MRI RIGHT SHOULDER WO CONTRAST REASON FOR STUDY: Right shoulder pain status post fall July 09, 2024 TECHNIQUE: Multiplanar, multisequence MRI of the right shoulder was performed without contrast. COMPARISON: None FINDINGS: Rotator Cuff: There is zmgu-yx-oziczoqh supraspinatus tendinosis without discrete tearing. There is pofr-mb-cbmgmntj infraspinatus tendinosis without discrete tearing. Teres minor is intact intra-articular biceps is within normal limits. Subscapularis demonstrates sifc-ra-kagpvehr tendinosis with interstitial tearing of the superior bundle. No muscle atrophy or edema. Biceps Tendon: The long head of the biceps tendon is located within the bicipital groove, without tear. Labrum: No tear is identified. Acromion and AC Joint: The coracoacromial and coracoclavicular ligaments are intact. There is mild acromioclavicular osteoarthritis . Type 2 acromion. Glenohumeral Articulation: No subluxation. No chondromalacia. Bones: Subcortical cystic change in the region of the humeral head laterally likely relates to underlying rotator cuff pathology. Joint and bursae: No joint effusion or bursal fluid. No loose bodies. Soft Tissues: The scapular notch, and quadrilateral space are unremarkable. There is no axillary lymphadenopathy. THIS IS AN ELECTRONICALLY VERIFIED FINAL REPORT 10/29/2024 9:09 AM - Electronically signed by Samson Cruz M.D. JA: CINDI Report ID: [id number] Reading Location: [id number] Procedure Note Samson Cruz MD - 10/29/2024 EXAM DESCRIPTION: MRI RIGHT SHOULDER WO CONTRAST REASON FOR STUDY: Right shoulder pain status post fall July 09, 2024 TECHNIQUE: Multiplanar, multisequence MRI of the right shoulder was performed without contrast. COMPARISON: None FINDINGS: Rotator Cuff: There is nzmq-ak-atobrqaq supraspinatus tendinosis without discrete tearing. There is zvjc-ae-yylrglqn infraspinatus tendinosis without discrete tearing. Teres minor is intact intra-articular biceps is within normal limits. Subscapularis demonstrates lzgb-fg-uyxhhwrm tendinosis with interstitial tearing of the superior bundle. No muscle atrophy or edema. Biceps Tendon: The long head of the biceps tendon is located within the bicipital groove, without tear. Labrum: No tear is identified. Acromion and AC Joint: The coracoacromial and coracoclavicular ligaments are intact. There is mild acromioclavicular osteoarthritis . Type 2 acromion. Glenohumeral Articulation: No subluxation. No chondromalacia. Bones: Subcortical cystic change in the region of the humeral head laterally likely relates to underlying rotator cuff pathology. Joint and bursae: No joint effusion or bursal fluid. No loose bodies. Soft Tissues: The scapular notch, and quadrilateral space are unremarkable. There is no axillary lymphadenopathy. THIS IS AN ELECTRONICALLY VERIFIED FINAL REPORT 10/29/2024 9:09 AM - Electronically signed by Samson Cruz M.D. JA: CINDI Report ID: [id number] Reading Location: [id number] IMPRESSION: Supraspinatus and infraspinatus hkoo-kk-lwrfwnsc tendinosis without discrete tearing. Subscapularis pbkm-qr-pkokxzws tendinosis with interstitial tearing of the superior bundle. Acromioclavicular articulation mild osteoarthritis. us Jn Polo PAC IMG MR ORDERABLES Final R esult * LEVETIRACETAM (10/24/2024 3:05 PM CDT) Pathologist [facility] LEVETIRACETAM 13.8 12 - 46 mcg/mL 10/24/2024 10:29 PM CDT [facility] Blood Venipuncture / Unknown 10/24/2024 3:05 PM CDT 10/24/2024 3:16 PM CDT us Maame Ayala MD LAB SEND OUTS Final Re sult [facility] [address] [place] [address], [place] * (ABNORMAL) CBC with Auto Differential (10/24/2024 3:05 PM CDT) Only the most recent of4 resultswithin the time period is included. WBC 6.78 4.00 - 12.00 10(3)/mcL 10/24/2024 4:03 PM CDT [facility] RBC 3.97 3.80 - 5.30 10(6)/mcL 10/24/2024 4:03 PM CDT [facility] HEMOGLOBIN (HGB) 9.6(L) 12.0 - 15.8 g/dL 10/24/2024 4:03 PM CDT [facility] HEMATOCRIT (HCT) 32.7(L) 36.0 - 47.0 % 10/24/2024 4:03 PM CDT [facility] MCV 82.4 82.0 - 96.0 fL 10/24/2024 4:03 PM CDT [facility] MCH 24.2(L) 26.0 - 34.0 pg 10/24/2024 4:03 PM CDT [facility] MCHC 29.4(L) 31.0 - 36.0 g/dL 10/24/2024 4:03 PM CDT [facility] PLATELET COUNT 322 140 - 440 10(3)/[facility] 10/24/2024 4:03 PM CDT [facility] RDW 18.9(H) 11.8 - 15.5 % 10/24/2024 4:03 PM CDT [facility] MPV 10.0 9.7 - 12.4 fL 10/24/2024 4:03 PM CDT [facility] NEUTROPHILS 68.8 47.0 - 73.0 % 10/24/2024 4:03 PM CDT [facility] LYMPHOCYTES 20.9 18.0 - 42.0 % 10/24/2024 4:03 PM CDT [facility] MONOCYTES 8.0 4.0 - 12.0 % 10/24/2024 4:03 PM CDT [facility] EOSINOPHILS 1.9 0.0 - 5.0 % 10/24/2024 4:03 PM CDT [facility] BASOPHILS 0.4 0.0 - 1.0 % 10/24/2024 4:03 PM CDT [facility] ABSOLUTE NEUTROPHILS 4.66 1.60 - 7.70 10(3)/mcL 10/24/2024 4:03 PM CDT [facility] ABSOLUTE LYMPHOCYTES 1.42 1.30 - 3.20 10(3)/mcL 10/24/2024 4:03 PM CDT [facility] ABSOLUTE MONOCYTES 0.54 0.20 - 1.00 10(3)/mcL 10/24/2024 4:03 PM CDT [facility] ABSOLUTE EOSINOPHIL 0.13 0.00 - 0.40 10(3)/mcL 10/24/2024 4:03 PM CDT [facility] ABSOLUTE BASOPHILS 0.03 0.00 - 0.10 10(3)/mcL 10/24/2024 4:[address] [facility] NRBC PER 100 WBC 0 10/25/19 4:[address] [facility] RESULTS ARE CONSISTENT WITH PERIPHERAL SMEAR REVIEW Yes 10/24/2024 4:[address] [facility] RBC MORPHOLOGY CONSISTENT WITH INDICES Yes 10/24/2024 4:[address] [facility] POIKILOCYTOSIS 1+ 10/24/2024 4:[address] [facility] OVALOCYTES Present 10/24/2024 4:[address] [facility] POLYCHROMASIA 1+ 10/24/2024 4:03 PM CDT [facility] Blood Venipuncture / Unknown 10/24/2024 3:05 PM CDT 10/24/2024 3:16 PM CDT Narrative [facility] - 10/24/2024 4:03 PM CDT Hypochromia us Maame Ayala MD HEMATOLOGY ORDERABLES Fi nal Result Performing Organization Address City/[facility]/ZIP Co de Phone Number [facility] [address] [place] [address] * (ABNORMAL) Valproic Acid (Depakene) [id number] (10/24/2024 3:05 PM CDT) VALPROIC ACID TOTAL <13(L) 50 - 100 mcg/mL 10/24/2024 3:56 PM CDT [facility] Blood Venipuncture / Unknown 10/24/2024 3:05 PM CDT 10/24/2024 3:16 PM CDT Maame Ayala MD CHEMISTRY ORDERABLES Fin al Result Performing Organization Address City/[facility]/ZIP Co de Phone Number [facility] [address] [place] [address] * (ABNORMAL) Comprehensive Metabolic Panel (Cmp) [id number] (10/24/2024 3:05 PM CDT) Only the most recent of4 resultswithin the time period is included. SODIUM 140 136 - 145 mmol/L 10/24/2024 3:42 PM CDT [facility] POTASSIUM 4.7 3.5 - 5.1 mmol/L 10/24/2024 3:42 PM CDT [facility] CHLORIDE 112(H) 98 - 107 mmol/L 10/24/2024 3:42 PM CDT [facility] CO2, VENOUS 19(L) 22 - 30 mmol/L 10/24/2024 3:42 PM CDT [facility] ANION GAP 13.7 <18.0 mmol/L 10/24/2024 3:42 PM CDT [facility] GLUCOSE 92 70 - 99 mg/dL 10/24/2024 3:42 PM CDT [facility] BUN 16 5 - 18 mg/dL 10/24/2024 3:42 PM CDT [facility] CREATININE, BLOOD 0.70 0.60 - 1.00 mg/dL 10/24/2024 3:42 PM CDT [facility] BUN/CREATININE RATIO 23(H) 12 - 20 ratio 10/24/2024 3:42 PM CDT [facility] TOTAL PROTEIN 6.2 6.0 - 8.0 g/dL 10/24/2024 3:42 PM CDT [facility] ALBUMIN 3.6 3.5 - 5.0 g/dL 10/24/2024 3:42 PM CDT [facility] A/G RATIO 1.4 1.0 - 2.2 10/24/2024 3:42 PM CDT [facility] CALCIUM 8.5(L) 8.7 - 10.5 mg/dL 10/24/2024 3:42 PM CDT [facility] T BILI 0.1(L) 0.2 - 1.2 mg/dL 10/24/2024 3:42 PM CDT [facility] SGOT (AST) 21 <43 U/L 10/24/2024 3:42 PM CDT [facility] SGPT (ALT) 21 <56 U/L 10/24/2024 3:42 PM CDT [facility] ALKALINE PHOSPHATASE 97 40 - 150 U/L 10/24/2024 3:42 PM CDT [facility] GFR, ESTIMATED >60 >=60 10/24/2024 3:42 PM CDT [facility] Comment: Creatinine Clearance is the preferred criteria for selecting drug dose adjustments in renally impaired patients. The GFR is provided as additional pertinent clinical information. GFR is reported in mL/min/1.73 sq m. Calculation based on the Chronic Kidney Disease Epidemiology Collaboration (CKD- EPI) equation refit without adjustment for race. GFR, EST. >60 >=60 025 3:42 PM CDT [facility] GFR, EST. NONAFRICAN >60 >=60 10/24/2024 3:42 PM CDT [facility] Blood Venipuncture / Unknown 10/24/2024 3:05 PM CDT 10/24/2024 3:16 PM CDT Maame Ayala MD CHEMISTRY ORDERABLES Fin al Result [facility] [address] [place] [address] * (ABNORMAL) POCT Glucose (10/24/2024 2:53 PM CDT) GLUCOSE,BEDSID E POCT 111(H) 70 - 99 mg/dL 10/24/2024 2:58 PM CDT [facility] Comment:Patient RN Performed Blood 10/24/2024 2:53 PM CDT 10/24/2024 2:58 PM CDT us None Provider POINT OF CARE TESTING Final Resu lt Performing Organization Address City/[facility]/ZIP Co de Phone Number [facility] [address] [place] [address] * EKG 12 LEAD (10/24/2024 2:47 PM CDT) Ventricular Rate 88 BPM EXTERNAL EKG Atrial Rate 88 BPM EXTERNAL EKG P-R Interval 154 ms EXTERNAL EKG QRS Duration 86 ms EXTERNAL EKG Q-T Duration 354 ms EXTERNAL EKG QTC CALCULATION 428 ms EXTERNAL EKG P [place] 40 degrees EXTERNAL EKG R [place] 6 degrees EXTERNAL EKG T [place] 33 degrees EXTERNAL EKG 10/24/2024 2:47 PM CDT Impressions EXTERNAL EKG - 10/26/2024 11:28 PM CDT Normal sinus rhythm Normal ECG When compared with ECG of 20-JUL-2024 19:13, No significant change was found Confirmed by Leonora Loco ([id number]) on 10/26/2024 11:28:47 PM Narrative Procedure Note Leonora Loco DO - 10/26/2024 IMPRESSION: Normal sinus rhythm Normal ECG When compared with ECG of 20-JUL-2024 19:13, No significant change was found Confirmed by Leonora Loco ([id number]) on 10/26/2024 11:28:47 PM us Maame Ayala MD IMG ECG ORDERABLES Final Result Performing Organization Address [facility] [facility] Co de Phone Number EXTERNAL EKG * EKG SCAN (10/24/2024 12:00 AM CDT) Only the most recent of2 resultswithin the time period is included. 10/24/2024 us Provider Scan IMG ECG ORDERABLES Final Result Performing Organization Address City/[facility] Co de Phone Number RESULTING AGENCY * (ABNORMAL) URINALYSIS REFLEX IF INDICATED BY ABNORMAL RESULTS (10/14/2024 7:27 PM CDT) Only the most recent of3 resultswithin the time period is included. SPECIFIC GRAVITY 1.005 1.003 - 1.030 10/14/2024 7:43 PM CDT [facility] URINE PH 7.0 5.0 - 9.0 10/14/2024 7:43 PM CDT [facility] WBC ESTERASE Negative Negative 10/14/2024 7:43 PM CDT [facility] NITRITE Negative Negative 10/14/2024 7:43 PM CDT [facility] PROTEIN, RANDOM URINE 15 mg/dL(A) Negative 10/14/2024 7:43 PM CDT [facility] URINE GLUCOSE, QUAL Negative Negative 10/14/2024 7:43 PM CDT [facility] URINE KETONES Negative Negative 10/14/2024 7:43 PM CDT [facility] UROBILINOGEN Normal Normal mg/dL 10/14/2024 7:43 PM CDT [facility] URINE BLOOD Negative Negative caitlin/ul 10/14/2024 7:43 PM CDT [facility] URINALYSIS COLOR Yellow 10/15/19 7:43 PM CDT [facility] URINALYSIS CLARITY Clear 10/14/2024 7:43 PM CDT [facility] Urine URINE SPECIMEN OBTAINED BY CLEAN CATCH PROCEDURE / Unknown Non-Phlebotomy Collection / Unknown 10/14/2024 7:27 PM CDT 10/14/2024 7:38 PM CDT us Adrian Yap MD URINE ORDERABLES Final Re sult [facility] [address] [place] [address] * Lipase (10/14/2024 7:18 PM CDT) Only the most recent of3 resultswithin the time period is included. LIPASE 24 8 - 78 U/L 10/14/2024 7:[address] [facility] Blood Venipuncture / Unknown 10/14/2024 7:18 PM CDT 10/14/2024 7:20 PM CDT us Adrian Yap MD CHEMISTRY ORDERABLES Ashly l Result [facility] [address] [place] [address] * POCT Urine HCG () (10/11/2024 4:20 PM CDT) POC URINE Negative POC URINE CONTROL Building Maintenance Custodian Pass Urine 10/11/2024 4:20 PM CDT Arielle Galdamez MD POINT OF CARE TESTING (MANUAL ) Final Result * CT ABDOMEN PELVIS W/O CONTRAST (10/09/2024 5:50 PM HOST/HOSTESS HEAD) Anatomical Region Laterality Modality Abdomen N/A Computed Tomogra phy 10/09/2024 6:22 PM HOST/HOSTESS HEAD Impressions 10/09/2024 6:24 PM HOST/HOSTESS HEAD IMPRESSION: No bowel inflammation or other cause for hematemesis identified. Narrative 10/09/2024 6:24 PM HOST/HOSTESS HEAD EXAM DESCRIPTION: CT ABDOMEN PELVIS W/O CONTRAST [...] Santi Castrejon M.D. AR: CYN Report ID: [id number] Reading Location: [id number] Procedure Note Santi Castrejon MD - 10/09/2024 [...] Santi Castrejon M.D. AR: CYN Report ID: [id number] Reading Location: [id number] IMPRESSION: No bowel inflammation or other cause for hematemesis identified. Maame Ayala MD IMG CT ORDERABLES Final Result * PT / INR (10/09/2024 5:13 PM HOST/HOSTESS HEAD) [facility] PROTIME-PATIENT 12.5 11.6 - 14.8 sec 10/09/2024 6:00 PM HOST/HOSTESS HEAD [facility] INR 0.9 0.9 - 1.2 10/09/2024 6:00 PM HOST/HOSTESS HEAD [facility] Comment: Therapeutic Ranges INR = 2.0-3.0: Venous thromb, atrial fib, pul embolism, tissue heart valve, ami. INR = 2.5-3.5: Mechanical heart valve Critical value for INR is >/= 4.5 Blood Venipuncture / Unknown 10/09/2024 5:13 PM HOST/HOSTESS HEAD 10/09/2024 5:45 PM HOST/HOSTESS HEAD us Maame Ayala MD HEMATOLOGY ORDERABLES Fi nal Result Performing Organization Address City/[facility]/ZIP Co de Phone Number [facility] [address] [place] [address] * Magnesium (10/09/2024 2:26 PM HOST/HOSTESS HEAD) [facility] MAGNESIUM 2.2 1.6 - 2.6 mg/dL 10/09/2024 5:04 PM HOST/HOSTESS HEAD [facility] Blood Venipuncture / Unknown 10/09/2024 2:26 PM HOST/HOSTESS HEAD 10/09/2024 2:35 PM HOST/HOSTESS HEAD aMame Ayala MD CHEMISTRY ORDERABLES Fin al Result [facility] [address] [place] [address] * Stool, Occult Blood, Diagnostic (03/12/2024 5:19 PM CDT) [facility] OCCULT BLOOD DIAG, GI BLEED Negative Negative 03/12/2024 5:[address] [facility] Stool STOOL SPECIMEN / Unknown Non-Phlebotomy Collection / Unknown 03/12/2024 5:19 PM CDT 03/12/2024 5:37 PM CDT us Jhoana Carrion SALES AGENT CASUALTY INSURANCE, SHIPPING AND RECEIVING SUPERVISOR BODY FLUIDS & STOOLS ORDERABLES Final Result [facility] [address] [place] [address] from Last 3 Months or Most Recently [...] measures to stabilize the patient. Care Teams Instructor Of Spanish Relationship Specialty Start Date End Date Eli Abbott MD [address] [place] [address] PCP - General Family Medicine 09/03/24 Jn Polo [facility] [address] [place] [address] Physician Slasher Runner Physician Slasher Runner 07/13/24
--- OUTSIDE RECORDS SUMMARY | 2024-11-25 21:30 | XMS_ITS | Encounter Summary ---
Author Organization [facility] Address [address] [place] [address] Phone Care Team Providers Care Relationship Management Lead Name Role Phone Brett Chávez MD Primary Care Provider [phone] Cedric Martinez MD Primary Care Provider [phone] Sue Snow MD Primary Care Provider [phone] Jn Polo PAC Unavailable [phone] Eli Abbott MD Primary Care Provider [phone] Reason for Visit * Reason Comments Medication Refill Encounter Details Date Type Department Care Team (Late st Contact Info) Description 01/27/2020 Refill [facility] [address] [place] [phone] Cruz Velasquez MD [address] [place] [address] Medication Refill Social History Tobacco [...] - 19 08/01/2020 08/01/2020 08/05/2020 1:58 PM PAD MAKING MACHINE OPERATOR COVID - 19 08/17/2021 08/17/2021 08/20/2021 6:06 AM PAD MAKING MACHINE OPERATOR COVID - 19 Confirmed 08/17/2021 08/17/2021 022 12:16 AM PAD MAKING MACHINE OPERATOR COVID - 19 07/26/2022 09/17/2022 09/17/2022 8:04 AM PAD MAKING MACHINE OPERATOR COVID - 19 07/20/2024 07/20/2024 07/20/2024 9:02 PM PAD MAKING MACHINE OPERATOR documented as of this encounter Care Teams Relationship Management Lead Relationship Specialty Start Date End Date Brett Chávez MD [address] [place] [address] PCP - General Family Medicine 06/12/15 03/25/23 Cedric Martinez MD [address] [place] [address] PCP - General Family Medicine 03/26/23 02/04/24 Sue Snow MD [address] [place] [address] PCP - General Internal Medicine 02/05/24 09/02/24 Eli Abbott MD [address] [place] [address] PCP - General Family Medicine 09/03/24 Jn Polo [facility] [address] [place] [address] Physician Residential Sales Executive Physician Residential Sales Executive 07/13/24 documented as of this encounter
--- OUTSIDE RECORDS SUMMARY | 2024-11-25 21:30 | XMS_ITS ---
Author Organization [facility] Address [address] [place] [address] Phone Care Team Providers Care Developing Machine Operator Name Role Phone DUANE COPE MD Primary Care Provider [phone] Plan of Treatment No Plan of Treatment Recorded Assessments Includes: Assessments for all patient encounters Findings Encounter Date Bulging lumbar disc PAIN MANAGEMENT NEW CONSULT with CORTEZ HAMILTON 04/29/2023 Last Documented On 3 2:16PM ; [facility] Lumbar spondylosis with radiculopathy PA IN MANAGEMENT NEW CONSULT with CORTEZ HAMILTON 04/29/2023 Last Documented On 3 2:16PM ; [facility] SPINAL STENOSIS LUMBAR REGIO N W/O NEUROGENIC CLAUDICATION PAIN MANAGEMENT NEW CONSULT with CORTEZ HAMILTON 04/29/2023 Last Documented On 3 2:16PM ; [facility] Medical Equipment - Implanted Devices Includes: Current and historical Devices No Medical Equipment Recorded Medications Includes: Current and historical Medications Current Medications (continue as prescribed) Pregabalin 150 MG Oral Capsule 05/30/2023 Provider: CORTEZ HAMILTON Diagnosis: Other spondylosi s with radiculopathy, lumbar region 1 CAPSULE TWO TIMES A DAY Last Documented On 3 11:19AM By CORTEZ HAMILTON ; [facility] Lacosamide 100 MG Oral Tablet 04/29/2023 Provider: JOANIE MAHER MD Diagnosis: Last Documented On 04/29/2023 2:00PM By Amy ACEVEDO ; [facility] Biofreeze 4% External Gel 04/29/2023 Provider: Diagnosis: Last Documented On 04/29/2023 2:03PM By Amy ACEVEDO ; [facility] Naproxen 500 MG Oral Tablet 04/29/2023 Provider: Diagnosis: bid Last Documented On 3 2:32PM By CORTEZ HAMILTON ; [facility] Nucynta ER 100 MG Oral Tablet Extended Release 12 Hour 04/29/2023 Provider: CORTEZ AVENDAÑO Diagnosis: Other spondylosi s with radiculopathy, lumbar region 1 tab every 12 hours by mouth Last Documented On 3 2:58PM By CORTEZ HAMILTON ; [facility] HYDROmorphone HCl 2 MG Oral Tablet 04/25/2023 Provid er: Diagnosis: Last Documented On 04/29/2023 2:00PM By Amy ACEVEDO ; [facility] Cyclobenzaprine HCl 10 MG Oral Tablet 04/11/2023 Pro vider: KIAN MEDEROS MD Diagnosis: Last Documented On 04/29/2023 2:01PM By Amy ACEVEDO ; [facility] levETIRAcetam 1000 MG Oral Tablet 03/19/2023 Provide r: DUANE COPE MD Diagnosis: Last Documented On 04/29/2023 2:01PM By Amy ACEVEDO ; [facility] Past Medications on file Pregabalin 150 MG Oral Capsule 04/29/2023 - 05/30/2023 Provider: COTREZ HAMILTON Diagnosis: Other spondylosi s with radiculopathy, lumbar region 1 CAPSULE TWO TIMES A DAYstop gabapentin Last Documented On 3 11:15AM By CORTEZ HAMILTON ; [facility] Gabapentin 600 MG Oral Tablet 04/25/2023 - 05/30/2023 Provider: Diagnosis: Last Documented On 3 11:14AM By CORTEZ HAMILTON ; [facility] Medications Administered Includes: Administered Medications in patient's chart No Administered Medications Recorded Results Includes: Results from 11/26/2023 through 11/25/2024 No Results Recorded For Specified Dates History of Present Illness History of Present Illness not supported for this document type No History of Present Illness Recorded Social History Description Last Updated Difficulty walking 04/29/2023 Last Documented On 3 2:16PM ; [facility] No consumption of alcohol 04/29/2023 Last Documented On 3 2:16PM ; [facility] Not using drugs 04/29/2023 Last Documented On 3 2:16PM ; [facility] Smoking packs of cigarettes per day 1/2 pack 04/29/2023 Last Documented On 3 2:16PM ; [facility] Smoking Status Unknown Procedures and Surgical History Surgical History Last Updated No Pacemaker 04/29/2023 Last Documented On 3 2:16PM ; [facility] Surgical / procedural history BJ multip le dates 04/29/2023 Last Documented On 3 2:16PM ; [facility] Medical History Includes: Medical History in patient's chart Description Last Updated Back brace 04/29/2023 Last Documented On 3 2:16PM ; [facility] CT/MRI BJ multiple dates 04/29/2023 Last Documented On 3 2:16PM ; [facility] Injection/Nerve blocks 04/29/2023 Last Documented On 3 2:16PM ; [facility] Moderate to severe pain 04/29/2023 Last Documented On 3 2:16PM ; [facility] NCV/EMG BJ multiple dates 04/29/2023 Last Documented On 3 2:16PM ; [facility] No Pain Pump 04/29/2023 Last Documented On 3 2:16PM ; [facility] No Spinal cord stimulator 04/29/2023 Last Documented On 3 2:16PM ; [facility] Other method: 04/29/2023 Last Documented On 3 2:16PM ; [facility] Physical therapy 04/29/2023 Last Documented On 3 2:16PM ; [facility] Please list all illnesses/co nditions you have been diagnosed with: Broken bones in back and may have MS 04/29/2023 Last Documented On 3 2:16PM ; [facility] Please list all surgeries: Please ask Last Documented On 3 2:16PM ; [facility] X-rays [facility] multiple dates 04/29/2023 Last Documented On 3 2:16PM ; [facility] Family History Includes: Family History in patient's chart Description Last Updated Family history of ischemic heart disease 04/29/2023 Last Documented On 3 2:16PM ; [facility] Family history of stroke/paralysis 04/29 Last Documented On 3 2:16PM ; [facility] Fraternal history of Arthritis 3 Last Documented On 3 2:16PM ; [facility] Maternal history of Arthritis 04/29/2023 Last Documented On 3 2:16PM ; [facility] Maternal history of family history of is chemic heart disease 04/29/2023 Last Documented On 3 2:16PM ; [facility] Paternal history of family history of is chemic heart disease 04/29/2023 Last Documented On 3 2:16PM ; [facility] Paternal history of stroke/paralysis Last Documented On 3 2:16PM ; [facility] Reported family history of seizures 04/06 Last Documented On 3 2:16PM ; [facility] Sororal history of family history of isc hemic heart disease 04/29/2023 Last Documented On 3 2:16PM ; [facility] Review of Systems Review of Systems not supported for this document type No Review of Systems Recorded Mental Status Description Memory lapses or loss Functional Status No Functional Status Recorded Physical Exam Physical Exam not supported for this document type No Physical Exam Recorded Allergies Includes: Active, inactive, and resolved Allergies Substance Type Reaction Onset Date Resolved Date Statu s Tylenol Allergy Nausea, Vomiting 04/29/2023 Ac tive Last Documented On 04/29/2023 2:02PM ; [facility] Note: LIVER PAIN oxyCODONE HCl Allergy Vomiting 04/29/2023 Activ e Last Documented On 3 2:02PM ; [facility] Insurance Includes: Active Insurance Policies Plan Name Member ID Group # Subscriber Relationship Effect larry Dates 1 - [facility] [id number] BHARAT MCNAIR Self Clinical Notes Includes: Signed Clinical Notes starting from 08/24/2022 No Clinical Notes Recorded
--- OUTSIDE RECORDS SUMMARY | 2024-11-25 21:30 | XMS_ITS | Encounter Summary ---
Author Organization [facility] Address [address] [place] [address] Care Team Providers Care Community Resource Officer Name Role Phone Reyes, Ally Dunn RN Unavailable [phone] Brett Chávez MD Primary Care Provider [phone] Eli Abbott MD Primary Care Provider [phone] Reason for Visit * Reason Onset Date Comments MEDICATION REFILL 01/28/2024 Encounter Details Date Type Department Care Team (Late st Contact Info) Description 01/28/2024 Refill [facility] - Infectious Disease [address] [place] [address], [place] [phone] Bernadette Watson MD [address] [place] [address] [place] [address] MEDICATION REFILL Social History Tobacco Use Types [...] Recorded Patient Health Questionnaire-2 Score 0 01/10/2024 [facility] - Occupational [...] a detention (including now)? Patient declined 12/13/2023 Comments No Sex and Gender Information Value Date Recorded Sex Assigned at Not on file Legal Sex Female 6:21 AM GENERAL INTERN Gender Identity Not on file Sexual Orientation [...] Barrow RN * Does person have difficulty dressing/bathing? [...] 01/31/2024 3:02 PM CDT Refill Request Tatiana Mcpherson PATRICE: 01/10/2024 NOV scheduled: 02/21/2024 LRF: 01/10/2024 [...] Info) Description 11/27/2024 10:30 AM CDT Appointment [facility] EEG/EMG [address] [place] [phone] Charanjit Jackson MD [address] [place] [address] [place] [phone] 03/03/2025 4:00 PM CDT Office Visit [facility] - Neurology [address] [place] [address], [facility] [place] [phone] Francie Napoles PA-C [address] [place] [address] 03/10/2025 2:30 PM CDT Office Visit [facility] - Neurology [address] [facility], [place] [phone] Charanjit Jackson MD [address] [place] [address] [address] DIV [place] [phone] documented as of this encounter Visit Diagnoses Diagnosis Surgical site infection Lumbar pain Lumbago documented in this encounter Additional Health Concerns Infection Onset Date Last Indicated Resolved Time COVID-19 Under Investigation 10/08/2024 10/08/2024 10/08/2024 7:57 PM GENERAL INTERN documented as of this encounter Care Teams Community Resource Officer Relationship Specialty Start Date End Date Brett Chávez MD [address] [place] [phone] PCP - General 08/23/22 11/23/24 Eli Abbott MD [address] [phone] PCP - General Family Medicine 11/24/24 Ally Chambers, RN Lead Solutions Architect 09/12/16 documented as of this encounter
--- OUTSIDE RECORDS SUMMARY | 2024-11-25 21:30 | XMS_ITS | Encounter Summary ---
Author Organization [facility] Address [address] [place] [address] Phone Care Team Providers Care Day Care Director Name Role Phone Brett Chávez MD Primary Care Provider [phone] Cedric Martinez MD Primary Care Provider [phone] Sue Snow MD Primary Care Provider [phone] Jn Polo PAC Unavailable [phone] Eli Abbott MD Primary Care Provider [phone] Reason for Visit * Reason Comments Medication Refill Encounter Details Date Type Department Care Team (Late st Contact Info) Description 12/18/2019 Refill [facility] [address] [place] [phone] Cruz Velasquez MD [address] [place] [address] Medication Refill Social History Tobacco [...] - 19 08/01/2020 08/01/2020 08/05/2020 1:58 PM DIRECTOR ENTERPRISE SALES COVID - 19 08/17/2021 08/17/2021 08/20/2021 6:06 AM DIRECTOR ENTERPRISE SALES COVID - 19 Confirmed 08/17/2021 08/17/2021 022 12:16 AM DIRECTOR ENTERPRISE SALES COVID - 19 07/26/2022 09/17/2022 09/17/2022 8:04 AM DIRECTOR ENTERPRISE SALES COVID - 19 07/20/2024 07/20/2024 07/20/2024 9:02 PM DIRECTOR ENTERPRISE SALES documented as of this encounter Care Teams Day Care Director Relationship Specialty Start Date End Date Brett Chávez MD [address] [place] [address] PCP - General Family Medicine 06/12/15 03/25/23 Cedric Martinez MD [address] [place] [address] PCP - General Family Medicine 03/26/23 02/04/24 Sue Snow MD [address] [place], [place] [phone] PCP - General Internal Medicine 02/05/24 09/02/24 Eli Abbott MD [address] [place] [address] PCP - General Family Medicine 09/03/24 Jn Polo PAC [address] [place] [address] Physician Tumbling Barrel Painter Physician Tumbling Barrel Painter 07/13/24 documented as of this encounter
--- OUTSIDE RECORDS SUMMARY | 2024-11-25 21:30 | XMS_ITS | Clinical Summary ---
Author Organization [facility] Mineful Address [address] [place] [address] Care Team Providers Care Storeroom Keeper Name Role Phone Ally Chambers RN Unavailable [phone] Eli Abbott MD Primary Care Provider [phone] Source Comments [facility],non-owned Affiliates and Associated Physician Practices is amultiple site organization consisting of ambulatory clinics and hospital sitesin [place], [place], [place] and [place]. This disclosure is being madepursuant to the Care Everywhere program and may not contain all information available regarding this patient. Last updated 18.[facility] Allergies Active Allergy Reactions Criticality Noted Date [...] document. Alwaysverify current medications with the patient. albuterol HFA (PROVENTIL;ADALBERTO TOLIN;PROAIR) 108 (90 BASE) MCG/ACT inhaler Inhale 2 (two) puffs by mouth every 6 hours as needed for Shortness of Breath or Wheezing Active cyclobenzaprin e (FLEXERIL) 10 MG tablet Take 1 Tab by mouth 3 times daily 30 Tab 7 Active lisinopril (Prinivil; Zestril) 10 MG tablet Take 0.5 (one-half) tablet by mouth once daily Active omeprazole (PriLOSEC) 20 MG capsuleIndicat ions:H. pylori infection Take 1 (one) capsule by mouth 2 times daily for 14 days 28 capsule 4 Active vitamin D, ergocalciferol , (Drisdol) 1.25 MG (14294 UT) capsule Take 1 (one) capsule by mouth every 30 days 4 Active hydrocortisone , rectal, (Anusol-HC) 2.5 % cream APPLY DAILY. APPLY TO RECTUM DIRECTED. 4 Active ketorolac (Toradol) 10 MG tablet Take 1 (one) tablet by mouth every 6 hours as needed 4 Active metoclopramide (Reglan) 10 MG tablet Take 1 (one) tablet by mouth 4 Active ondansetron, disintegrating , (Zofran ODT) 4 MG tablet Take 1 (one) tablet by mouth every 6 hours as needed for Nausea/Vomiting Allow tablet to dissolve on the tongue 12 tablet 5 Active oxyCODONE, immediate release, (Roxicodone) 5 MG tabletIndicati ons:Musculoske letal pain Take 1 (one) tablet by mouth every 6 hours as needed for Pain 20 tablet 5 Active brivaracetam (Briviact) 75 MG tabletIndicati ons:Post traumatic epilepsy (HCC) Take 1 (one) tablet by mouth 2 times daily 60 tablet 5 Active brivaracetam (Briviact) 100 MG tabletIndicati ons:Post traumatic epilepsy (HCC) Take 1 (one) tablet by mouth 2 times daily 60 tablet 5 5 Active carBAMazepine XR 12hr (TEGretol XR) 100 MG tabletIndicati ons:Post traumatic epilepsy (HCC) Take 2 (two) tablets by mouth 2 times daily 120 tablet 5 5 Active midazolam (Nayzilam) 5 MG/0.1ML nasal sprayIndicatio ns:Post traumatic epilepsy (HCC) [place] 0.1 mL into the nose as needed for Seizures (Only if seizure occurres) 1 spray in the nostril for generalized convulsion lasting 5 minutes. To give second dosage if the seizure does not stop in the next 5 minutes and call EMS. Can also use for repetitive/clus ter of generalized convulsion. Do not exceed 2 dosages per day. 2 Each 5 5 Active pantoprazole EC (Protonix) 40 MG tablet Take 1 (one) tablet by mouth 2 times daily for 30 days 60 tablet 4 02/22/20 24 Discontin ued(Yes Pharm No AVS) Active Problems Problem Noted Date Diagnosed Date [...] Encounters Date Type Department Care Team Description 11/24/2024 7:30 AM CDT - 11/24/2024 8:20 AM CDT Hospital Encounter [facility] MRI [address] [place] [address] Charanjit Jackson MD Discharge Disposition: Home or Self Care 11/24/2024 Telephone [facility] - Neurology [address] [place] [phone] Charanjit Jackson MD Medication Management 11/24/2024 Telephone [facility] - Neurology [address] [place] [phone] Charanjit Jackson MD 11/24/2024 Travel 11/13/2024 10:59 PM CDT - 11/14/2024 1:53 AM T Emergency [facility] [address] [place] [phone] Gilmar Morrow MD Severe itching; Pain of both eyes; Blurry vision Discharge Disposition: Left Against Medical Advice/Discontinued Care 11/13/2024 Travel 11/12/2024 11:34 PM CDT - 11/13/2024 2:36 AM T Emergency [facility] [address] [place] [phone] Lissette Steele MD Dizziness; Near syncope; History of cardiac arrhythmia Discharge Disposition: Home or Self Care 11/12/2024 Travel 10/21/2024 2:00 PM CDT Office Visit [facility] - Neurology [address] [place] [phone] Charanjit Jackson MD Post traumatic epilepsy (Primary Dx) 10/21/2024 Travel 10/08/2024 5:40 PM [facility] - 10/09/2024 5:57 AM [facility] Emergency [facility] [address] [place] [phone] Bronson Shaw MD Mayer, Joshua C, DO Hematemesis with nausea (Primary Dx); History of Janell-en-Y gastric bypass; History of peptic ulcer disease; Upper GI bleed Discharge Disposition: Left Against Medical Advice/Discontinued Care 10/08/2024 Travel 09/19/2024 7:35 PM SMEARER - 09/19/2024 8:23 PM [facility] Emergency [facility] [address] [place] [phone] Christiano Otto MD Left hip pain; Fall, initial encounter; Musculoskeletal pain Discharge Disposition: Home or Self Care 09/19/2024 Travel 09/14/2024 11:30 AM SMEARER Office Visit [facility] - Neurosurgery [address] [place] [phone] Fahad Monzon MD Chronic bilateral low back [...] Recorded Patient Health Questionnaire-2 Score 0 04/27/2024 [facility] - Occupational [...] place to sleep or slept in a jail (including now)? Patient declined 12/13/2023 Comments No Sex and Gender Information Value Date Recorded Sex Assigned at Not on file Legal Sex Female 6:21 AM SMEARER Gender Identity Not on file Sexual Orientation Not on file Last Filed Vital Signs Vital Sign Reading Time Taken Comments Blood Pressure 120/78 11/13/2024 10:11 PM CDT Pulse 90 11/13/2024 10:11 PM CDT Temperature 36.5 C (97.7 F) 11/13/2024 10:11 PM CDT Respiratory Rate 18 11/13/2024 10:11 PM CDT Oxygen Saturation 100% 11/13/2024 10:11 PM CDT Inhaled Oxygen Concentration - - Weight 109.3 kg (241 lb) 11/13/2024 10:11 PM CDT Height 190.5 cm (6' 3 ) 11/13/2024 10:11 PM CDT Body Mass Index 30.12 11/13/2024 10:11 PM CDT Plan of Treatment Upcoming Encounters Date Type Department Care Team (Late st Contact Info) Description 11/27/2024 10:30 AM CDT Appointment [facility] EEG/EMG [address] [place] [phone] Charanjit Jackson MD [address] [place] [address] [place] [phone] 03/03/2025 4:00 PM CDT Office Visit [facility] - Neurology [address] [place] [phone] Francie Napoles PA-C [address] [place] [address] 03/10/2025 2:30 PM CDT Office Visit [facility] - Neurology [address] [place] [phone] Charanjit Jackson MD [address] [place] [phone] Health Maintenance Due Date Last Done Comments COLOGUARD (AGES 45-75) - COLON CA SCREENING 1978 COLON MONITORING 1978 COLONOSCOPY - COLON CA SCREENING 1978 CT COLONOGRAPHY - COLON CA SCREENING 1978 Colorectal Cancer Screening 1978 FIT - COLON CA SCREENING 1978 FLEX SIG - COLON CA SCREENING 1978 HIV SCREENING 1993 DTAP/TDAP/TD VACCINES (1 - Tdap) 1997 HEPATITIS B VACCINE (1 of 3 - 19+ 3-dose series) 1997 PNEUMOCOCCAL VACCINE (1 of 2 - PCV) 1997 COVID-19 VACCINE (1 - season) 2024 DEPRESSION SCREENING 08/05/2024 01/10/2024 INFLUENZA VACCINE (Season Ended) 2025 MAMMOGRAM 11/02/2026 11/02/2024, 0308/2024, 10/31/2023, Additional history exists SCREENING FOR DIABETES 11/15/2027 , 11/12/2024, 10/09/2024, Additional history exists ZOSTER VACCINE (1 of 2) 2028 LIPID TESTING 11/03/2028 11/04/2023, 02/15/2023 HEPATITIS C SCREENING Completed 05/07/2013 HIB VACCINE Aged Out No longer eligi ble based on patient's age to complete this topic HPV VACCINE Aged Out No longer eligi ble based on patient's age to complete this topic MENINGOCOCCAL (Group B) VACCINE SHARED DECISION-MAKING Aged Out No longer eligible based on patient's age to complete this topic MENINGOCOCCAL GROUPS A/C/Y/W VACCINE Aged Out No longer eligible based on patient's age to complete this topic Procedures Procedure Name Priority Date/Time Associated Diagnosis Comments CARDIAC EKG ORDER 11/16/2024 2:4 7 PM CDT COMPREHENSIVE METABOLIC PANEL STAT 11/14/2024 12:18 AM CDT CBC W AUTO DIFFERENTIAL STAT 11/14/2024 12:18 AM CDT XR CHEST 2VW STAT 11/12/2024 9:15 PM CDT Dizziness MAGNESIUM BLOOD STAT 11/12/2024 9:05 PM CDT COMPREHENSIVE METABOLIC PANEL STAT 11/12/2024 9:05 PM CDT CBC W AUTO DIFFERENTIAL STAT 11/12/2024 9:05 PM CDT CARDIAC EKG ORDER 10/12/2024 1:0 3 PM CDT CBC W AUTO DIFFERENTIAL STAT 10/09/2024 2:19 AM SMEARER MAGNESIUM BLOOD STAT 10/09/2024 2:19 AM SMEARER PHOSPHORUS BLOOD STAT 10/09/2024 2:19 AM SMEARER BASIC METABOLIC PANEL (CALCIUM TOTAL) STAT 10/09/2024 2:[address] NECK SOFT TISSUE W CONT STAT 10/08/2024 7:44 PM SMEARER Hematemesis with nausea CT CHEST ABDOMEN PELVIS W CONT STAT 10/08/2024 7:44 PM SMEARER Hematemesis with nausea HGB HCT PANEL STAT 10/08/2024 7:10 PM SMEARER SARS-COV-2 (COVID-19)+INFLU A+B PCR RAPID STAT 10/08/2024 7:09 PM SMEARER TYPE + SCREEN PANEL STAT 10/08/2024 3 :25 PM SMEARER PT-INR [facility] STAT 10/08/2024 3:25 PM SMEARER COMPREHENSIVE METABOLIC PANEL STAT 10/08/2024 3:25 PM SMEARER CBC W AUTO DIFFERENTIAL STAT 10/08/2024 3:25 PM SMEARER XR KNEE RIGHT 3VW STAT 09/19/2024 7:4 8 PM SMEARER Left hip pain XR PELVIS W LEFT HIP 2VW STAT 09/19/2024 7:47 PM SMEARER Left hip pain CT CERVICAL SPINE WO CONTRAST STAT 09/19/2024 7:32 PM SMEARER Fall, initial encounter CT THORACIC SPINE WO CONTRAST STAT 09/19/2024 7:32 PM SMEARER Fall, initial encounter CT LUMBAR SPINE WO CONTRAST STAT 09/19/2024 7:32 PM SMEARER Fall, initial encounter HELICOBACTER PYLORI ANTIGEN FECES Routine 09/02/2024 12:30 PM SMEARER H. pylori infection HEPATITIS SCREEN ACUTE Routine 3 5:15 AM CDT from Last 3 Months or Most Recently Relevant to Health Maintenance Results * CARDIAC EKG ORDER (11/16/2024 2:47 PM CDT) Only the most recent of2 resultswithin the time period is included. Narrative 11/16/2024 2:47 PM CDT Ordered by an unspecified provider. us Scanned Document CARDIAC SERVICES ORDERABLES Fin al Result * (ABNORMAL) CBC W AUTO DIFFERENTIAL (11/14/2024 12:18 AM CDT) Only the most recent of4 resultswithin the time period is included. WBC 6.2 4.0 - 10.7 x10E9/L 11/14/2024 12:31 AM CDT [facility] RBC Count 4.04 3.90 - 5.20 x10E12/L 11/14/2024 12:31 AM CDT [facility] Hemoglobin 9.6(L) 11.9 - 15.8 g/dL 11/14/2024 12:31 AM [facility] Hematocrit 31.6(L) 34.8 - 46.1 % 11/14/2024 12:31 AM [facility] MCV 78.2(L) 80.0 - 98.0 fL 11/14/2024 12:31 AM [facility] MCH 23.8(L) 26.7 - 33.6 pg 11/14/2024 12:31 AM [facility] MCHC 30.4(L) 31.7 - 36.3 g/dL 11/14/2024 12:31 AM [facility] RDW-CV 17.2(H) 11.3 - 14.8 % 11/14/2024 12:31 AM [facility] Platelet Count 366 150 - 420 x10E9/L 11/14/2024 12:31 AM [facility] MPV 9.4 7.8 - 11.4 fL 11/14/2024 12:31 AM [facility] Neutrophil % 55.2 41.0 - 74.0 % 11/14/2024 12:31 AM [facility] Lymphocyte % 33.1 17.0 - 47.0 % 11/14/2024 12:31 AM [facility] Monocyte % 7.3 3.0 - 11.0 % 11/14/2024 12:31 AM [facility] Eosinophil % 3.4 0.0 - 7.0 % 11/14/2024 12:31 AM [facility] Basophil % 0.8 0.0 - 1.6 % 11/14/2024 12:31 AM [facility] Immature Granulocytes % 0.2 0.0 - 1.0 % 11/14/2024 12:31 AM [facility] Neutrophil Absolute 3.40 1.60 - 7.50 x10E9/L 11/14/2024 12:31 AM [facility] Lymphocyte Absolute 2.04 1.00 - 4.40 x10E9/L 11/14/2024 12:31 AM [facility] Monocyte Absolute 0.45 0.15 - 1.00 x10E9/L 11/14/2024 12:31 AM [facility] Eosinophil Absolute 0.21 0.00 - 0.60 x10E9/L 11/14/2024 12:31 AM [facility] Basophil Absolute 0.05 0.00 - 0.13 x10E9/L 11/14/2024 12:31 AM [facility] Blood BLOOD SPECIMEN / Unknown Venipuncture / Unknown 11/14/2024 12:18 AM CDT 11/14/2024 12:28 AM CDT us Gilmar Morrow MD LAB - HEMATOLOGY ORDERABLES Final Result [facility] [address] [place] [address], [facility] [phone] * (ABNORMAL) COMPREHENSIVE METABOLIC PANEL (11/14/2024 12:18 AM CDT) Only the most recent of3 resultswithin the time period is included. BUN 17 7 - 26 mg/dL 11/14/2024 12:53 AM [facility] Creatinine 0.66 0.56 - 0.96 mg/dL 11/14/2024 12:53 AM [facility] Sodium 140 136 - 145 mmol/L 11/14/2024 12:53 AM [facility] Potassium 4.4 3.5 - 4.5 mmol/L 11/14/2024 12:53 AM [facility] Chloride 108(H) 98 - 107 mmol/L 11/14/2024 12:53 AM [facility] CO2 19(L) 22 - 29 mmol/L 11/14/2024 12:53 AM [facility] Glucose 91 70 - 99 mg/dL 11/14/2024 12:53 AM [facility] Calcium 9.0 8.4 - 10.2 mg/dL 11/14/2024 12:53 AM [facility] Protein Total 6.7 6.0 - 8.3 g/dL 11/14/2024 12:53 AM [facility] Albumin 3.7 3.4 - 5.0 g/dL 11/14/2024 12:53 AM [facility] Bilirubin Total 0.1(L) 0.2 - 1.2 mg/dL 11/14/2024 12:53 AM [facility] Alkaline Phosphatase 99 40 - 150 U/L 11/14/2024 12:53 AM [facility] ALT 15 5 - 55 U/L 11/14/2024 12:53 AM [facility] AST 18 5 - 34 U/L 11/14/2024 12:53 AM [facility] Anion Gap 13 6 - 16 11/14/2024 12:53 AM [facility] BUN/Creatinine Ratio 26(H) 7 - 23 11/14/2024 12:53 AM [facility] Osmolality Calculated 291 275 - 295 mOsm/kg 11/14/2024 12:53 AM [facility] Albumin/Globulin Ratio 1.2 1.1 - 2.3 11/14/2024 12:53 AM [facility] eGFR by CKD-EPI >90 >=90 mL/min/1.7 3 m2 11/14/2024 12:53 AM [facility] Blood BLOOD SPECIMEN / Unknown Venipuncture / Unknown 11/14/2024 12:18 AM CDT 11/14/2024 12:26 AM CDT Gilmar Morrow MD LAB - CHEMISTRY ORDERABLES F inal Result [facility] [address] [place] [address], [facility] [phone] * XR CHEST 2VW (11/12/2024 9:15 PM CDT) Anatomical Region Laterality Modality Chest Digital Radiogra phy 11/12/2024 9:51 PM CDT Impressions 11/13/2024 8:59 AM CDT IMPRESSION: No acute pulmonary abnormality. > Dictated by Andrés Parham DO (Deputy Coroner Investigator), 11/12/2024 9:51 PM. IBritton MD have personally reviewed and interpreted this examination/study. > Interpreting Provider: Ustun Aydingoz, MD on 11/13/2024 8:59 AM Narrative 11/13/2024 8:59 AM CDT PROCEDURE: XR CHEST 2VW, DATE/TIME OF EXAM: 11/12/2024 9:17 PM, LOCATION [facility] INDICATION: R42: Dizziness ADDITIONAL CLINICAL INFORMATION: Ordering Provider Reason For Exam: syncope COMPARISON: Chest x-ray 01/07/2024 FINDINGS: There is no focal consolidation, pleural effusion, or pneumothorax. The cardiomediastinal silhouette is normal. The bony thorax is intact. Procedure Note Britton Gonzalez MD - 11/13/2024 PROCEDURE: XR CHEST 2VW, DATE/TIME OF EXAM: 11/12/2024 9:17 PM, LOCATION [facility] INDICATION: R42: Dizziness ADDITIONAL CLINICAL INFORMATION: Ordering Provider Reason For Exam: syncope COMPARISON: Chest x-ray 01/07/2024 FINDINGS: There is no focal consolidation, pleural effusion, or pneumothorax. The cardiomediastinal silhouette is normal. The bony thorax is intact. IMPRESSION: No acute pulmonary abnormality. > Dictated by Andrés Parham DO (Deputy Coroner Investigator), 11/12/2024 9:51 PM. I, Britton Gonzalez MD have personally reviewed and interpreted this examination/study. > Interpreting Provider: Britton Gonzalez MD on 11/13/2024 8:59 AM us Mikal Rosa PA-C DIAGNOSTIC IMAGING ORDERABLE S Final Result * MAGNESIUM BLOOD (11/12/2024 9:05 PM CDT) Only the most recent of2 resultswithin the time period is included. Magnesium 2.1 1.6 - 2.6 mg/dL 11/12/2024 9:42 PM CDT [facility] Blood BLOOD SPECIMEN / Unknown Venipuncture / Unknown 11/12/2024 9:05 PM CDT 11/12/2024 9:15 PM CDT us Mikal Rosa PA-C LAB - CHEMISTRY ORDERABLES F inal Result [facility] [address] [place] [address], [facility] [phone] * (ABNORMAL) BASIC METABOLIC PANEL (CALCIUM TOTAL) (10/09/2024 2:19 AM [facility]) BUN 9 7 - 26 mg/dL 10/09/2024 2:48 AM [facility] Creatinine 0.60 0.56 - 0.96 mg/dL 10/09/2024 2:48 AM [facility] Sodium 140 136 - 145 mmol/L 10/09/2024 2:48 AM [facility] Potassium 4.4 3.5 - 4.5 mmol/L 10/09/2024 2:48 AM [facility] Chloride 110(H) 98 - 107 mmol/L 10/09/2024 2:48 AM [facility] CO2 21(L) 22 - 29 mmol/L 10/09/2024 2:48 AM [facility] Glucose 104(H) 70 - 99 mg/dL 10/09/2024 2:48 AM [facility] Calcium 8.4 8.4 - 10.2 mg/dL 10/09/2024 2:48 AM [facility] Anion Gap 9 6 - 16 10/09/2024 2:48 AM [facility] BUN/Creatinine Ratio 15 7 - 23 10/09/2024 2:48 AM [facility] Osmolality Calculated 289 275 - 295 mOsm/kg 10/09/2024 2:48 AM [facility] eGFR by CKD-EPI >90 >=90 mL/min/1.7 3 m2 10/09/2024 2:48 AM [facility] Blood BLOOD SPECIMEN / Unknown Venipuncture / Unknown 10/09/2024 2:19 AM SMEARER 10/09/2024 2:23 AM [facility] Nilesh Krause DO LAB - CHEMISTRY ORDERABLES Fin al Result Performing Organization Address City/[facility]/ZIP Co de Phone Number [facility] [address] [place] [address], [facility] [phone] * PHOSPHORUS BLOOD (10/09/2024 2:19 AM SMEARER) Phosphorus 4.4 2.9 - 5.1 mg/dL 10/09/2024 2:48 AM SMEARER [facility] Blood BLOOD SPECIMEN / Unknown Venipuncture / Unknown 10/09/2024 2:19 AM SMEARER 10/09/2024 2:23 AM SMEARER Nilesh Krause DO LAB - CHEMISTRY ORDERABLES Fin al Result [facility] [address] [place] [phone], [facility] [phone] * CT Chest Abdomen Pelvis W Cont (10/08/2024 7:44 PM SMEARER) Anatomical Region Laterality Modality Chest, Abdomen, Pelvis Computed Tomography 10/08/2024 7:51 PM SMEARER Impressions 10/08/2024 10:55 PM SMEARER Impression: 1.Postoperative appearance of Janell-en-Y gastric bypass. [...] 10/08/2024 10:55 PM Narrative 10/08/2024 10:55 PM SMEARER Procedure Information DATE: 10/08/2024 7:45 PM EXAMINATION: [...] Provider: Mamie Scales MD on 0:55 PM us Bronson Shaw MD CT ORDERABLES Final R esult * CT Neck Soft Tissue W Cont (10/08/2024 7:44 PM SMEARER) Anatomical Region Laterality Modality Head Computed Tomogra phy 10/08/2024 8:01 PM SMEARER Impressions 10/08/2024 8:53 PM SMEARER IMPRESSION: 1.No evidence of soft tissue swelling, mass or acute pathology in the neck. 2.There is no evidence of abscess, pneumomediastinum or soft tissue air. The report is dictated by Diana Real MD (vice president financial) Carlos Sewell MD have personally reviewed and interpreted this examination/study. > Interpreting Provider: Carlos Carrera MD on 10/08/2024 8:53 PM Narrative 10/08/2024 8:53 PM SMEARER PROCEDURE: CT NECK SOFT TISSUE W CONT, DATE/TIME OF EXAM: 10/08/2024 7:45 PM, LOCATION [facility] INDICATION: R11.14: Bilious vomiting with [...] CONT, DATE/TIME OF EXAM: 57:45 PM, LOCATION [facility] INDICATION: R11.14: Bilious vomiting with [...] report is dictated by Diana Real MD (vice president financial) I, Carlos Carrera MD have personally reviewed and interpreted this examination/study. > Interpreting Provider: Carlos Carrera MD on 10/08/2024 8:53 PM [address] Shaw MD CT ORDERABLES Final R esult * (ABNORMAL) HGB HCT PANEL (10/08/2024 7:10 PM SMEARER) Pathologist [facility] Hemoglobin 10.9(L) 11.9 - 15.8 g/dL 10/08/2024 7:21 PM SMEARER [facility] Hematocrit 35.8 34.8 - 46.1 % 10/08/2024 7:21 PM SMEARER [facility] Blood BLOOD SPECIMEN / Unknown Venipuncture / Unknown 10/08/2024 7:10 PM SMEARER 10/08/2024 7:16 PM SMEARER Bronson Shaw MD LAB - HEMATOLOGY ORDERA BLES Final Result [facility] [address] [place] [phone], [facility] [phone] * SARS-COV-2 (COVID-19)+INFLU A+B PCR RAPID (10/08/2024 7:09 PM SMEARER) [facility] COVID-19 PCR Not detected Not detected 10/09/19 7:57 PM SMEARER [facility] Influenza A Rapid YULIANA Not Detected Not Detected 10/08/2024 7:57 PM SMEARER [facility] Influenza B YULIANA Rapid Not Detected Not Detected 10/08/2024 7:57 PM SMEARER [facility] Microbiology SPECIMEN FROM NASOPHARYNGEAL STRUCTURE / Unknown Collection / Unknown 10/08/2024 7:09 PM SMEARER 10/08/2024 7:14 PM SMEARER Narrative [facility] - 10/08/2024 7:57 PM SMEARER Influenza assay performed by [employer]. [...] acid amplification assay performance was validated by [facility]. This test has been authorized by the [...] upon request. Bronson Shaw MD LAB - MICROBIOLOGY SCOTT MANUEL Final Result [facility] [address] [place] [phone], [facility] [phone] * (ABNORMAL) PT-INR [facility] (10/08/2024 3:25 PM SMEARER) PT 12.0(L) 12.1 - 14.8 Seconds 10/08/2024 3:58 PM SMEARER [facility] INR 0.9 See Comment 10/08/2024 3:58 PM SMEARER [facility] Comment:The suggested therap eutic range for standard coumadin (warfarin) therapy is an INR of 2.0-3.0. For high-risk patients (Mechanical Mitral Valve Prosthesis, etc.), the suggested prophylactic therapeutic range is an INR of 2.5-3.5. Blood BLOOD SPECIMEN / Unknown Venipuncture / Unknown 10/08/2024 3:25 PM SMEARER 10/08/2024 3:33 PM SMEARER Zeinab Taylor RELOCATION DIRECTOR-YOUTH SPECIALIST LAB - COAGULATION OR DERABLES Final Result Performing Organization Address City/[facility]/ZIP Co de Phone Number [facility] [address] [place] [address], [facility] [phone] * TYPE + SCREEN PANEL (10/08/2024 3:25 PM SMEARER) Antibody Screen NEG 4:24 PM SMEARER [facility] ABO Rh O POS 10/08/2024 4:24 PM SMEARER [facility] Blood Bank BLOOD SPECIMEN / Unknown Venipuncture / Unknown 10/08/2024 3:25 PM SMEARER 10/08/2024 3:40 PM SMEARER Zeinab Taylor RELOCATION DIRECTOR-YOUTH SPECIALIST LAB - BLOOD BANK ORD ERABLES Final Result Performing Organization Address [facility]/ZIP Co de Phone Number [facility] [address] [place] [address], [facility] [phone] * XR Knee Right 3Vw (09/19/2024 7:48 PM SMEARER) Anatomical Region Laterality Modality Lower Extremity Digital Radiogra phy 09/19/2024 7:44 PM SMEARER Impressions 09/20/2024 8:25 AM SMEARER IMPRESSION: No acute fracture or dislocation identified. Report dictated by Brennen Antoine DO (vice president financial). I, Lina Weinberg MD have personally reviewed and interpreted this examination/study. > Interpreting Provider: Lina Weinberg MD on 09/20/2024 8:25 AM Narrative 09/20/2024 8:25 AM SMEARER PROCEDURE: XR KNEE RIGHT 3VW, DATE/TIME OF EXAM: 09/19/2024 7:16 PM, LOCATION [facility] INDICATION: M25.552: Left hip pain [...] DATE/TIME OF EXAM: 09/19/2024 7:16 PM, LOCATION [facility] INDICATION: M25.552: Left hip pain [...] identified. Report dictated by Brennen Antoine DO (vice president financial). Lina Sewell MD have personally reviewed and interpreted this examination/study. > Interpreting Provider: Lina Weinberg MD on 09/20/2024 8:25 AM Zeinab Taylor RELOCATION DIRECTOR-YOUTH SPECIALIST DIAGNOSTIC IMAGING O RDERABLES Final Result * XR Pelvis W Left Hip 2Vw (09/19/2024 7:47 PM SMEARER) Anatomical Region Laterality Modality Pelvis Digital Radiogra phy 09/19/2024 7:47 PM SMEARER Impressions 09/20/2024 8:24 AM SMEARER IMPRESSION: No acute fracture identified. Report dictated by Brennen Antoine DO (vice president financial). Lina Sewell MD have personally reviewed and interpreted this examination/study. > Interpreting Provider: Lina Weinberg MD on 09/20/2024 8:24 AM Narrative 09/20/2024 8:24 AM SMEARER PROCEDURE: XR PELVIS W LEFT HIP 2VW, DATE/TIME OF EXAM: 09/19/2024 7:48 PM, LOCATION [facility] INDICATION: M25.552: Left hip pain [...] DATE/TIME OF EXAM: 09/19/2024 7:48 PM, LOCATION [facility] INDICATION: M25.552: Left hip pain [...] identified. Report dictated by Brennen Antoine DO (vice president financial). ILina MD have personally reviewed and interpreted this examination/study. > Interpreting Provider: Lina Weinberg MD on 09/20/2024 8:24 AM Zeinab Taylor RELOCATION DIRECTOR-YOUTH SPECIALIST DIAGNOSTIC IMAGING O RDERABLES Final Result * CT Lumbar Spine Wo Contrast (09/19/2024 7:32 PM SMEARER) Anatomical Region Laterality Modality Spine Computed Tomogra phy 09/19/2024 7:40 PM SMEARER Impressions 09/19/2024 7:53 PM SMEARER IMPRESSION: 1. No evidence of acute fracture in the cervical, thoracic, or lumbar spine. > Interpreting Provider: Jackie Olmedo MD on 09/19/2024 7:53 PM Narrative 09/19/2024 7:53 PM SMEARER PROCEDURE: CT CERVICAL SPINE WO CONTRAST, CT THORACIC SPINE WO CONTRAST, CT LUMBAR SPINE WO CONTRAST, DATE/TIME OF EXAM: 09/19/2024 7:32 PM, LOCATION [facility] INDICATION: W19.XXXA: Fall, initial encounter [...] DATE/TIME OF EXAM: 09/19/2024 7:32 PM, LOCATION [facility] INDICATION: W19.XXXA: Fall, initial encounter [...] endplate compression fractures of the L2 and U0agtyzzbgd bodies with less than 25% height loss [...] Jackie Olmedo MD on 09/19/2024 7:53 PM us Zeinab Taylor RELOCATION DIRECTOR-YOUTH SPECIALIST CT ORDERABLES Ashly charly Result * CT Thoracic Spine Wo Contrast (09/19/2024 7:32 PM SMEARER) Anatomical Region Laterality Modality Spine Computed Tomogra phy 09/19/2024 7:40 PM SMEARER Impressions 09/19/2024 7:53 PM SMEARER IMPRESSION: 1. No evidence of acute fracture in the cervical, thoracic, or lumbar spine. > Interpreting Provider: Jackie Olmedo MD on 09/19/2024 7:53 PM Narrative 09/19/2024 7:53 PM SMEARER PROCEDURE: CT CERVICAL SPINE WO CONTRAST, CT THORACIC SPINE WO CONTRAST, CT LUMBAR SPINE WO CONTRAST, DATE/TIME OF EXAM: 09/19/2024 7:32 PM, LOCATION [facility] INDICATION: W19.XXXA: Fall, initial encounter [...] DATE/TIME OF EXAM: 09/19/2024 7:32 PM, LOCATION [facility] INDICATION: W19.XXXA: Fall, initial encounter [...] endplate compression fractures of the L2 and L2eblauohng bodies with less than 25% height loss [...] MD on 09/19/2024 7:53 PM Zeinab Taylor RELOCATION DIRECTOR-YOUTH SPECIALIST CT ORDERABLES Ashly parks Result * CT Cervical Spine Wo Contrast (09/19/2024 7:32 PM SMEARER) Anatomical Region Laterality Modality Spine Computed Tomogra phy 09/19/2024 7:40 PM SMEARER Impressions 09/19/2024 7:53 PM SMEARER IMPRESSION: 1. No evidence of acute fracture in the cervical, thoracic, or lumbar spine. > Interpreting Provider: Jackie Olmedo MD on 09/19/2024 7:53 PM Narrative 09/19/2024 7:53 PM SMEARER PROCEDURE: CT CERVICAL SPINE WO CONTRAST, CT THORACIC SPINE WO CONTRAST, CT LUMBAR SPINE WO CONTRAST, DATE/TIME OF EXAM: 09/19/2024 7:32 PM, LOCATION [facility] INDICATION: W19.XXXA: Fall, initial encounter [...] DATE/TIME OF EXAM: 09/19/2024 7:32 PM, LOCATION [facility] INDICATION: W19.XXXA: Fall, initial encounter [...] endplate compression fractures of the L2 and F4seikosskf bodies with less than 25% height loss are unchanged. No acutecompression fractures. There is mild multilevel degenerative disc disease. Thecentral canal is mildly stenotic at L4-L5. There are varying degrees of up to moderate facet osteoarthritis. Mild right and moderate leftneuroforaminal stenosis at L5-S1. IMPRESSION: 1. No evidence of acute fracture in the cervical, thoracic, or lumbar spine. > Interpreting Provider: Jackie Olemdo MD on 09/19/2024 7:53 PM Zeinab Taylor RELOCATION DIRECTOR-[facility] CT ORDERABLES Ashly l Result * HELICOBACTER PYLORI ANTIGEN FECES (09/02/2024 12:30 PM SMEARER) Pathologist [facility] [place] Helicobacter pylori Antigen Stool Negative Negative 09/04/2024 1:46 PM SMEARER [facility] ([facility]) Comment: Performed By: [facility] [address] [place] [address] [facility]: Alfonso Mercado MD, PhD CLIA Number: [id number] Stool STOOL SPECIMEN / Unknown Collection / Unknown 09/02/2024 12:30 PM SMEARER 09/02/2024 12:31 PM SMEARER us Bernadette Watson MD LAB - MICROBIOLOGY ORDERABLES Fi nal Result [facility] ([facility]) [address] [place] [address] * HEPATITIS SCREEN ACUTE (05/07/2013 5:15 AM CDT) Pathologist [facility] [place] Hepatitis A Virus Antibody IgM NONREACTIVE NONREACTIVE [facility] Hepatitis C Antibody NONREACTIVE NONREACTIVE [facility] [...] 5:15 AM CDT 05/07/2013 5:57 AM CDT us Arnold Mireles MD LAB - CHEMISTRY ORDERABLES Fin al Result [address] [phone] from Last 3 Months or Most Recently Relevant to Health Maintenance Insurance [facility] TPL THIRD DEMOCRAT LIABILITY Democrat Liability [facility] Member Subscriber Plan / Payer (Ef fective for All Dates) Name:aTtiana Mcpherson Relation to Subscriber:Self Name:TATIANA MCPHERSON Payer ID:Not on file Group ID:Not on file Type:Medicaid [place] Address: [address] Member Subscriber Plan / Payer (Ef fective for All Dates) Name:Tatiana Mcpherson Relation to Subscriber:Self Name:TATIANA MCPHERSON Payer ID:Not on file Group ID:Not on file Type:Medicaid [place] Address: [address] Member Subscriber Plan / Payer (Ef fective for All Dates) Name:Tatiana Mcpherson Relation to Subscriber:Self Name:TATIANA MCPHERSON Payer ID:Not on file Group ID:Not on file Type:Medicaid [place] Address: [address] Advance Directives * Full Code (Latest Code [...] 9:59 AM 12/31/2023 10:03 PM Care Teams Storeroom Keeper Relationship Specialty Start Date End Date Eli Abbott MD [address] [place] [phone] PCP - General Family Medicine 11/24/24 Ally Chambers, RN Youth Specialist 09/12/16
--- OUTSIDE RECORDS SUMMARY | 2024-11-25 21:30 | XMS_ITS ---
Care Plan - [facility] Created on: November 25, 2024 BHARAT MCNAIR : 1980 Sex: Female Author Organization [facility] Address [address] [place] [address] Phone Care Team Providers Care Background Investigator Name Role Phone ANATOLIY FLORES, DUANE Taylor Primary Care Provider [phone]
--- OUTSIDE RECORDS SUMMARY | 2024-11-25 21:30 | XMS_ITS | Encounter Summary ---
Author Organization [facility] Health Address [address] [place] [address] Care Team Providers Care Laser Beam Cutter Name Role Phone Ally Chambers RN Unavailable [phone] Eil Abbott MD Primary Care Provider [phone] Reason for Visit * Reason Onset Date Comments Medication Management 11/24/2024 Encounter Details Date Type Department Care Team (Late st Contact Info) Description 11/24/2024 Telephone [facility] - Neurology [address] [place] [phone] Charanjit Jackson MD [address] [place] [address] [place] [address] Medication Management Social History Tobacco Use Types Packs/Day Years [...] Recorded Patient Health Questionnaire-2 Score 0 04/27/2024 [facility] - Occupational Stress [...] on file 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 Patient Call Back Number: [phone] Called patient's pharmacy, confirmed they received script. Requested a fill for patient and they said it will be ready in the next 2 hours. Called patient to let her know, no further questions. documented in this encounter Plan of Treatment Upcoming Encounters Date Type Department Care Team (Late st Contact Info) Description 11/27/2024 10:30 AM CDT Appointment [facility] EEG/EMG [address] [place] [address] Charanjit Jackson MD [address] [place] [address] [place] [address] 03/03/2025 4:00 PM CDT [facility] [address] [place] [address], Pending [place] [address] Francie Napoles PA-C [address] [place] [address] 03/10/2025 2:30 PM CDT Office Visit [facility] - Neurology [address] [place] [address], [place] [address] Charanjit Jackson MD [address] [place] [address] [place] [phone] documented as of this encounter Visit Diagnoses Not on filedocumented in this encounter Care Teams Laser Beam Cutter Relationship Specialty Start Date End Date Eli Abbott MD [address] [place] [address] PCP - General Family Medicine 11/24/24 Ally Chambers, RN Centrifugal Chiller Technician 09/12/16 documented as of this encounter
--- OUTSIDE RECORDS SUMMARY | 2024-11-25 21:30 | XMS_ITS | Encounter Summary ---
Author Organization [facility] Address [address] [facility] [place] [address] Care Team Providers Care Gill Box Operator Name Role Phone Ally Chambers RN Unavailable [phone] Eli Abbott MD Primary Care Provider [phone] Reason for Visit * Radiology Services (Routine) - Closed Specialty Diagnoses / Procedures Referred By Johana t Referred To Contact MRI Diagnoses Post traumatic epilepsy (HCC) Procedures MRI Brain Wo Contrast Charanjit Jackson MD [address] [facility] [address] [place] [address] Phone: tel: fax: [facility] MRI [address] [place] [address] Phone: tel: fax: Referral ID Status Reason Start Date Expiration Date Visits Re quested Visits Authorized [id number] Closed 11/13/2024 02/11/2025 1 1 Encounter Details Date Type Department Care Team (Latest Contact Info) Description 11/24/2024 7:30 AM CDT - 11/24/2024 8:20 AM CDT Hospital Encounter [facility] MRI [address] [place] [address] Charanjit aJckson MD [address] [facility] [address] [place] [address] Discharge Disposition: Home or Self Care Social History Tobacco Use Types Packs/Day Years [...] Recorded Patient Health Questionnaire-2 Score 0 04/27/2024 [facility]at [facility] - Occupational Stress Questionnaire Answer Date Recorded [...] place to sleep or slept in a retirement (including now)? 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 Answer Date of Assessment Author No 12/13/2023 2:29 AM Glenn Marshall RN documented as of this encounter Mental Status * Does person have difficulty concentrating/remembering/making decisions? Answer Entry Date Author No 12/13/2023 2:29 AM Glenn Marshall RN documented in this encounter Medications at Time of Discharge albuterol HFA (PROVENTIL;SHANNON PALLAVI;PROAIR) 108 (90 BASE) MCG/ACT inhaler Inhale 2 (two) puffs by mouth every 6 hours as needed for Shortness of Breath or Wheezing brivaracetam (Briviact) 100 MG tabletIndication s:Post traumatic epilepsy (HCC) Take 1 (one) tablet by mouth 2 times daily 60 tablet 5 11/19/2024 brivaracetam (Briviact) 75 MG tabletIndication s:Post traumatic epilepsy (HCC) Take 1 (one) tablet by mouth 2 times daily 60 tablet 10/21/2024 carBAMazepine XR 12hr (TEGretol XR) 100 MG tabletIndication s:Post traumatic epilepsy (HCC) Take 2 (two) tablets by mouth 2 times daily 120 tablet 5 10/21/2024 cyclobenzaprine (FLEXERIL) 10 MG tablet Take 1 Tab by mouth 3 times daily 30 Tab 09/14/2016 hydrocortisone, rectal, (Anusol-HC) 2.5 % cream APPLY DAILY. APPLY TO RECTUM DIRECTED. 03/13/2024 ketorolac (Toradol) 10 MG tablet Take 1 (one) tablet by mouth every 6 hours as needed 04/06/2024 lisinopril (Prinivil; Zestril) 10 MG tablet Take 0.5 (one-half) tablet by mouth once daily metoclopramide (Reglan) 10 MG tablet Take 1 (one) tablet by mouth 04/13/2024 midazolam (Nayzilam) 5 MG/0.1ML nasal sprayIndications :Post traumatic epilepsy (HCC) [place] 0.1 mL into the nose as needed for Seizures (Only if seizure occurres) 1 spray in the nostril for generalized convulsion lasting 5 minutes. To give second dosage if the seizure does not stop in the next 5 minutes and call EMS. Can also use for repetitive/cluste r of generalized convulsion. Do not exceed 2 dosages per day. 2 Each 5 10/21/2024 ondansetron, disintegrating, (Zofran ODT) 4 MG tablet Take 1 (one) tablet by mouth every 6 hours as needed for Nausea/Vomiting Allow tablet to dissolve on the tongue 12 tablet 09/19/2024 oxyCODONE, immediate release, (Roxicodone) 5 MG tabletIndication s:Musculoskeleta l pain Take 1 (one) tablet by mouth every 6 hours as needed for Pain 20 tablet 09/19/2024 vitamin D, ergocalciferol, (Drisdol) 1.25 MG (50920 UT) capsule Take 1 (one) capsule by mouth every 30 days 01/17/2024 documented as of this encounter Plan of Treatment Upcoming Encounters Date Type Department Care Team (Late st Contact Info) Description 11/27/2024 10:30 AM CDT Appointment [facility] EEG/EMG [address] [place] [phone] Charanjit Jackson MD [address] [place] [address] 03/03/2025 4:00 PM CDT Office Visit [facility] - Neurology [address] [place] [address], [place] [address] Francie Napoles PA-C [address] [place] [address] 03/10/2025 2:30 PM CDT Office Visit [facility] - Neurology [address] [place] [address], [place] [address] Charanjit Jackson MD [address] [place] [address] [place] [phone] Pending Results Name Type Priority Associated Diagnoses Date /Time MRI Brain Wo Contrast Imaging Routine Post traumatic epilepsy (HCC) 11/24/2024 8:48 AM CDT documented as of this encounter Visit Diagnoses Diagnosis 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
--- OUTSIDE RECORDS SUMMARY | 2024-11-25 21:30 | XMS_ITS | Data Portability ---
Author Organization [facility] SKYLARSloan [facility] Address [address] [facility] [place] [address] Care Team Providers Care Mule Operator Name Role Phone ELI ABBOTT Primary Care Provider [phone] Assessment No assessment recorded. Plan of Treatment Reminders Order Date Submit Date Provider Last Modified By Organization Details Last Modified Time Details Appointments None recorded . Lab lipid panel, serum 2024 025 [facility], [address] [place] [address], [id number], 5 08:38:42 ferritin , serum or plasma 2024 025 [facility], [address] [place] [address], [id number], 5 08:38:44 iron + total iron-bin ding capacity (TIBC), serum 2024 025 [facility], [address] [place] [address], [address], 5 08:38:43 CBC 2024 025 [facility], [address] [place] [address], [id number], 5 08:38:46 lipid panel, serum 2024 025 [facility], [address], [address], 5 10:36:26 CMP, serum or plasma 2024 025 [facility], [address] [facility] [address], [place], [address], 5 10:36:27 iron + total iron-bin ding capacity (TIBC), serum 2024 025 [facility], [address] [facility], [place], [address], 10:36:28 ferritin , serum or plasma 2024 025 [facility], [address] [place] [address], [facility], [place], [address], 5 10:36:30 CBC w/ auto diff 2024 025 [facility], [address] [place] [address] 2, [place], [address], 10:36:31 vitamin B12, serum 2024 025 [facility], [address] [place] [address], [facility], [place], [address], 5 10:36:29 fecal occult blood, immunoas say, stool 2024 025 [facility], [address] [place] [address] 2, [place], [address], 5 14:09:38 Referral optometr ist referral - Pain of left eye, 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 Currentl y being treated with Valtrex. 2024 025 [facility], [address], [place], [address], 5 10:31:08 pain manageme nt referral 2024 025 [facility], [address], [place], [address], 10:22:00 Procedures None recorded . Surgeries None recorded . Imaging MAMMO, screenin g, digital, bilatera l 2024 [facility] (Central Scheduling), [address], [place], [address], 10:59:49 XR, chest, 2 view 2024 025 [facility] (Central [facility]), [address], [place], [address], 11:19:24 XR, chest, 2 view 2024 [facility] (Central Scheduling), [address] , [place], [address], 08:15:12 Medication Orders cycloben zaprine 5 mg tablet 2024 [facility][id number], [address], [place], [id number], 18:05:47 ketocona zole 2 % topical cream 2024 [facility] #93107, [address], [place], [id number], 18:02:07 lidocain e 5 % topical cream 2024 [facility] #02402, [address], [place], [id number], 18:04:43 Medrol (Trevin) 4 mg tablets in a dose pack 2024 025 [facility], [address], [place], [id number], 5 11:26:30 benzonat ate 200 mg capsule 2024 025 [facility] #64970, [address], [place], [id number], 5 11:25:01 Zithroma x Z-Trevin 250 mg tablet 2024 025 [facility] #14450, [address], [place], [id number], 5 10:53:56 cyanocob alamin (vit B-12) 1,000 mcg/mL injectio n solution 2024 025 [facility] #64900, [address], [place], [id number], 13:24:28 Patient TargetsNo targets recorded. Patient Instructions Encounter Date Encounter Id Patient Instructions Last Modified By Organization Details Last Modified Time 08/10/2024 [id number] f/u in 1month nsuthan Not available 0 08/10/2024 13:19:44 08/17/2024 [id number] f/u in 1 month nsuthan Not available 08/17/2024 10:54:24 10/01/2024 [id number] A healthy lifestyle: care instructions [email or web address] Not available 10/01/2024 11:55:20 Reason for Referral Pain Management Referral for Chronic back pain Referring Physician: Vandana Snow, Internal Medicine, Encounter Date: 08/17/2024 Commercial Loan Manager Referral for Fernando n of left eye Pain of left eye, 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 Currently being treated with Valtrex. Referring Physician: Eli Abbott, Family Medicine, Encounter Date: 11/17/2024 Results Created Date Observation Date Name Description Value Unit Range Abnormal Flag Note LastModifiedBy Organization Detail LastModifiedTime 07/20/20 24 07/20/2024 Influ sanjiv virus A [...] larry Negat larry, Error 07/20 9:02 PM BORE MILL OPERATOR FOR PLASTIC [facility] [employer] [facility] Not Available Not Available 10/01/2024 [...] Negat larry Negat larry 07/20 9:02 PM BORE MILL OPERATOR FOR PLASTIC [facility] [employer] [facility] Not Available Not Available 10/01/2024 [...] Negat larry Negat larry 07/20 9:02 PM BORE MILL OPERATOR FOR PLASTIC [facility] [employer] [facility] Not Available Not Available 10/01/2024 [...] is Not Detec marisel) 07/20 9:02 PM BORE MILL OPERATOR FOR PLASTIC [facility] Not Available Not Available 10/01/2024 03:21:25 [...] FDA under an Emerge ncy Use Author izatio n (EUA) for use by labora omid certif ied under the CLIA that meet [...] - 12.00 10(3) /mcL 07/20 8:16 PM BORE MILL OPERATOR FOR PLASTIC [facility] Not Available Not Available 10/01/2024 03:21:25 07/20/20 24 07/20/2024 CBC W Auto Diffe renti al panel - Blood erythrocytes [#/volume] in blood by automated count 4.48 text: 3.80 - 5.30 10(6)/ mcL RBC 4.48 3.80 - 5.30 10(6) /mcL 07/20 8:16 PM BORE MILL OPERATOR FOR PLASTIC [facility] Not Available Not Available 10/01/2024 03:21:25 07/20/20 24 07/20/2024 CBC W Auto Diffe renti al panel - Blood hemoglobin [mass/volume ] in blood 10.4 g/dL low: 12g/dL high: 15.8g/ dL low HEMOG LOBIN (HGB) 10.4 (L) 12.0 - 15.8 g/dL 07/20 8:16 PM BORE MILL OPERATOR FOR PLASTIC [facility] Not Available Not Available 10/01/2024 03:21:25 07/20/20 24 07/20/2024 CBC W Auto Diffe renti al panel - Blood hematocrit [volume fraction] of blood by automated count 33.9 % low: 36%hig h: 47% low HEMAT OCRIT (HCT) 33.9 (L) 36.0 - 47.0 % 07/20 8:16 PM BORE MILL OPERATOR FOR PLASTIC [facility] Not Available Not Available 10/01/2024 03:21:25 07/20/20 24 07/20/2024 CBC W Auto Diffe renti al panel - Blood MCV [entitic volume] by automated count 75.7 fL low: 82fLhi gh: 96fL low MCV 75.7 (L) 82.0 - 96.0 fL 07/20 8:16 PM BORE MILL OPERATOR FOR PLASTIC [facility] Not Available Not Available 10/01/2024 03:21:25 07/20/20 24 07/20/2024 CBC W Auto Diffe renti al panel - Blood MCH [entitic mass] by automated count 23.2 pg low: 26pghi gh: 34pg low MCH 23.2 (L) 26.0 - 34.0 pg 07/20 8:16 PM BORE MILL OPER[facility] FOR PLASTIC [facility] [employer] Not Available Not Available 10/01/2024 03:21:25 07/20/20 24 07/20/2024 CBC W Auto Diffe renti al panel - Blood MCHC [mass/volume ] by automated count 30.7 g/dL low: 31g/dL high: 36g/dL low MCHC 30.7 (L) 31.0 - 36.0 g/dL 07/20 8:16 PM BORE MILL OPERATOR FOR PLASTIC [facility] [employer] [employer] Not Available Not Available 10/01/2024 03:21:25 07/20/20 24 07/20/2024 CBC W Auto Diffe renti al panel - Blood platelets [#/volume] in blood 416 text: 140 - 440 10(3)/ mcL PLATE LET COUNT 416 140 - 440 10(3) /mcL 07/20 8:[address] [facility] [employer] [employer] Not Available Not Available 10/01/2024 03:21:25 07/20/20 24 07/20/2024 CBC W Auto Diffe renti al panel - Blood erythrocyte distribution width [ratio] by automated count 15.8 % low: 11.8%h igh: 15.5% high RDW 15.8 (H) 11.8 - 15.5 % 07/20 8:16 PM BORE MILL OPERATOR FOR PLASTIC [facility] Not Available Not Available 10/01/2024 03:21:25 07/20/20 24 07/20/2024 CBC W Auto Diffe renti al panel - Blood platelet mean volume [entitic volume] in blood by automated count 9.6 fL low: 9.7fLh igh: 12.4fL low MPV 9.6 (L) 9.7 - 12.4 fL 07/20 8:16 PM BORE MILL OPERATOR FOR PLASTIC [facility] Not Available Not Available 10/01/2024 03:21:25 07/20/20 24 07/20/2024 CBC W Auto Diffe renti al panel - Blood neutrophils/ 100 leukocytes in blood by automated count 56.5 % low: 47%hig h: 73% NEUTR OPHIL S 56.5 47.0 - 73.0 % 07/20 8:16 PM BORE MILL OPERATOR FOR PLASTIC [facility] Not Available Not Available 10/01/2024 03:21:25 07/20/20 24 07/20/2024 CBC W Auto Diffe renti al panel - Blood lymphocytes/ 100 leukocytes in blood by automated count 33 % low: 18%hig h: 42% LYMPH OCYTE S 33.0 18.0 - 42.0 % 07/20 8:16 PM BORE MILL OPERATOR FOR PLASTIC [facility] Not Available Not Available 10/01/2024 03:21:25 07/20/20 24 07/20/2024 CBC W Auto Diffe renti al panel - Blood monocytes/10 0 leukocytes in blood by automated count 6.4 % low: 4%high : 12% MONOC YTES 6.4 4.0 - 12.0 % 07/20 8:16 PM BORE MILL OPERATOR FOR PLASTIC [facility] Not Available Not Available 10/01/2024 03:21:25 07/20/20 24 07/20/2024 CBC W Auto Diffe renti al panel - Blood eosinophils/ 100 leukocytes in blood by automated count 3.4 % low: 0%high : 5% EOSIN OPHIL S 3.4 0.0 - 5.0 % 07/20 8:16 PM BORE MILL OPERATOR FOR PLASTIC [facility] Not Available Not Available 10/01/2024 03:21:25 07/20/20 24 07/20/2024 CBC W Auto Diffe renti al panel - Blood basophils/10 0 leukocytes in blood by automated count 0.7 % low: 0%high : 1% BASOP HILS 0.7 0.0 - 1.0 % 07/20 8:16 PM BORE MILL OPERATOR [employer] [facility] [employer] Not Available Not Available 10/01/2024 03:21:25 07/20/20 24 07/20/2024 CBC W Auto Diffe renti al panel - Blood neutrophils [#/volume] in blood by automated count 3.16 text: 1.60 - 7.70 10(3)/ mcL [facility] NEUTR OPHIL S 3.16 1.60 - 7.70 10(3) /mcL 07/20 8:16 PM BORE MILL OPERATOR FOR PLAST[employer] [facility] [employer] Not Available Not Available 10/01/2024 03:21:25 07/20/20 24 07/20/2024 CBC W Auto Diffe renti al panel - Blood lymphocytes [#/volume] in blood by automated count 1.85 text: 1.30 - 3.20 10(3)/ mcL [facility] LYMPH OCYTE S 1.85 1.30 - 3.20 10(3) /mcL 07/20 8:16 PM BORE MILL OPERATOR FOR PLASTIC [facility] [employer] [employer] Not Available Not Available 10/01/2024 03:21:25 07/20/20 24 07/20/2024 CBC W Auto Diffe renti al panel - Blood monocytes [#/volume] in blood by automated count 0.36 text: 0.20 - 1.00 10(3)/ mcL [facility] MONOC YTES 0.36 0.20 - 1.00 10(3) /mcL 07/20 8:16 PM BORE MILL OPERATOR FOR PLASTIC [facility] [employer] Not Available Not Available 10/01/2024 03:21:25 07/20/20 24 07/20/2024 CBC W Auto Diffe renti al panel - Blood eosinophils [#/volume] in blood by automated count 0.19 text: 0.00 - 0.40 10(3)/ mcL [facility] EOSIN OPHIL 0.19 0.00 - 0.40 10(3) /mcL 07/20 8:[address] [facility] Not Available Not Available 10/01/2024 03:21:25 07/20/20 24 07/20/2024 CBC W Auto Diffe renti al panel - Blood basophils [#/volume] in blood by automated count 0.04 text: 0.00 - 0.10 10(3)/ mcL [facility] BASOP HILS 0.04 0.00 - 0.10 10(3) /mcL 07/20 8:16 PM BORE MILL OPERATOR FOR PLASTIC [facility] Not Available Not Available 10/01/2024 03:21:25 07/20/20 24 07/20/2024 CBC W Auto Diffe renti al panel - Blood nucleated erythrocytes /100 leukocytes [ratio] in blood 0 NRBC PER 100 WBC 0 07/20 8:[address] [facility] [employer] Not Available Not Available 10/01/2024 [...] 1.6 - 2.6 mg/dL 07/20 8:[address] [facility] [employer] Not Available Not Available 10/01/2024 [...] - 145 mmol/ L 07/20 8:40 PM BORE MILL OPERATOR FOR PLASTIC [facility] Not Available Not Available 10/01/2024 03:21:24 07/20/20 24 07/20/2024 Compr ehens larry metab olic 2000 panel - Serum or Plasm a potassium [moles/volum e] in serum or plasma 4.3 mmol/ L low: 3.5mmo l/Lhig h: 5.1mmo l/L POTAS SIUM 4.3 3.5 - 5.1 mmol/ L 07/20 8:40 PM BORE MILL OPERATOR FOR PLASTIC [facility] Not Available Not Available 10/01/2024 03:21:24 07/20/20 24 07/20/2024 Compr ehens larry metab olic 2000 panel - Serum or Plasm a chloride [moles/volum e] in serum or plasma 106 mmol/ L low: 98mmol /Lhigh : 107mmo l/L CHLOR EMRE 106 98 - 107 mmol/ L 07/20 8:40 PM BORE MILL OPERATOR FOR PLASTIC [facility] Not Available Not Available 10/01/2024 03:21:24 07/20/20 24 07/20/2024 Compr ehens larry metab olic 2000 panel - Serum or Plasm a carbon dioxide, total [moles/volum e] in serum or plasma 23 mmol/ L low: 22mmol /Lhigh : 30mmol /L CO2, VENOU S 23 22 - 30 mmol/ L 07/20 8:40 PM BORE MILL OPERATOR FOR PLASTIC [facility] Not Available Not Available 10/01/2024 03:21:24 07/20/20 24 07/20/2024 Compr ehens larry metab olic 2000 panel - Serum or Plasm a anion gap in serum or plasma 13.3 mmol/ L high: 18mmol /L ANION GAP 13.3 <18.0 mmol/ L 07/20 8:40 PM BORE MILL OPERATOR FOR PLASTIC [facility] Not Available Not Available 10/01/2024 03:21:24 07/20/20 24 07/20/2024 Compr ehens larry metab olic 1999 panel - Serum or Plasm a glucose [mass/volume ] in serum or plasma 89 mg/dL low: 70mg/d Lhigh: 99mg/d L GLUCO SE 89 70 - 99 mg/dL 07/20 8:40 PM BORE MILL OPERATOR FOR PLAST[employer] [facility] [employer] Not Available Not Available 10/01/2024 03:21:24 07/20/20 24 07/20/2024 Compr ehens larry metab olic 1999 panel - Serum or Plasm a urea nitrogen [mass/volume ] in serum or plasma 15 mg/dL low: 5mg/dL high: 18mg/d L BUN 15 5 - 18 mg/dL 07/20 8:40 PM BORE MILL OPERATOR FOR PLASTIC [facility] [employer] [facility] Not Available Not Available 10/01/2024 03:21:24 07/20/20 24 07/20/2024 Compr ehens larry metab olic 1999 panel - Serum or Plasm a creatinine [mass/volume ] in serum or plasma 0.79 mg/dL low: 0.6mg/ dLhigh : 1mg/dL CREAT ININE , BLOOD 0.79 0.60 - 1.00 mg/dL 07/20 8:40 PM BORE MILL OPERATOR FOR PLASTIC [facility] [employer] [facility] Not Available Not Available 10/01/2024 03:21:24 07/20/20 24 07/20/2024 Compr Kivedaens larry metab olic 1999 panel - Serum or Plasm a urea nitrogen/cre atinine [mass ratio] in serum or plasma 19 text: 12 - 20 ratio BUN/C REATI NINE RATIO 19 12 - 20 ratio 07/20 8:40 PM BORE MILL OPERATOR FOR PLAST[employer] [facility] [employer] Not Available Not Available 10/01/2024 03:21:24 07/20/20 24 07/20/2024 Compr ehens larry metab olic 1999 panel - Serum or Plasm a protein [mass/volume ] in serum or plasma 6.6 g/dL low: 6.3g/d Lhigh: 8.2g/d L TOTAL PROTE IN 6.6 6.3 - 8.2 g/dL 07/20 8:40 PM BORE MILL OPERATOR FOR PLASTIC [facility] [employer] [facility] Not Available Not Available 10/01/2024 03:21:24 07/20/20 24 07/20/2024 Compr Kivedaens larry metab olic 1999 panel - Serum or Plasm a albumin [mass/volume ] in serum or plasma 4 g/dL low: 3.5g/d Lhigh: 5g/dL ALBUM IN 4.0 3.5 - 5.0 g/dL 07/20 8:40 PM BORE MILL OPERATOR FOR PLASTIC [facility] [employer] Not Available Not Available 10/01/2024 03:21:24 07/20/20 24 07/20/2024 Compr ehens larry metab olic 1999 panel - Serum or Plasm a albumin/glob ulin [mass ratio] in serum or plasma 1.5 low: 1high: 2.2 A/G RATIO 1.5 1.0 - 2.2 07/20 8:[address] [facility] [facility] [employer] [facility] Not Available Not Available 10/01/2024 03:21:24 07/20/20 24 07/20/2024 Compr Kivedaens larry metab olic 2000 panel - Serum or Plasm a calcium [mass/volume ] in serum or plasma 9.3 mg/dL low: 8.7mg/ dLhigh : 10.5mg /dL CALCI UM 9.3 8.7 - 10.5 mg/dL 07/20 8:[address] [facility] [employer] Not Available Not Available 10/01/2024 03:21:24 07/20/20 24 07/20/2024 Compr Kivedaens larry metab olic 1999 panel - Serum or Plasm a bilirubin.to maximilian [mass/volume ] in serum or plasma 0.3 mg/dL low: 0.2mg/ dLhigh : 1.2mg/ dL T BILI 0.3 0.2 - 1.2 mg/dL 07/20 8:[address] [facility] [employer] [employer] Not Available Not Available 10/01/2024 03:21:24 07/20/20 24 07/20/2024 Compr ehens larry metab olic 2000 panel - Serum or Plasm a aspartate aminotransfe rase [enzymatic activity/vol ume] in serum or plasma 13 U/L low: 5U/Lhi gh: 34U/L SGOT (AST) 13 5 - 34 U/L 07/20 8:40 PM BORE MILL OPERATOR FOR PLASTIC [facility] [employer] [facility] Not Available Not Available 10/01/2024 03:21:24 07/20/20 24 07/20/2024 Compr ehens larry metab olic 1999 panel - Serum or Plasm a alanine aminotransfe rase [enzymatic activity/vol ume] in serum or plasma 13 U/L low: 0U/Lhi gh: 55U/L SGPT (ALT) 13 0 - 55 U/L 07/20 8:40 PM BORE MILL OPERATOR FOR PLASTIC [facility] [employer] [facility] Not Available Not Available 10/01/2024 03:21:24 07/20/20 24 07/20/2024 Compr Kivedaens larry metab olic 1999 panel - Serum or Plasm a alkaline phosphatase [enzymatic activity/vol ume] in serum or plasma 107 U/L low: 40U/Lh igh: 150U/L ALKAL INE PHOSP HATAS E 107 40 - 150 U/L 07/20 8:40 PM BORE MILL OPERATOR FOR PLASTIC [facility] [employer] [facility] Not Available Not Available 10/01/2024 03:21:24 07/20/20 24 07/20/2024 Compr ehens larry metab olic 1999 panel - Serum or Plasm a glomerular filtration rate/1.73 sq M.predicted among non-blacks [volume rate/area] in serum, plasma or blood by creatinine-b ased formula (MDRD) low: 60 GFR, ESTIM ATED >60 >=60 07/20 8:40 PM BORE MILL OPERATOR FOR PLASTIC [facility] [employer] [facility] Not Available Not Available 10/01/2024 03:21:24 07/20/20 24 07/20/2024 Compr ehens larry metab olic 2000 panel - Serum or Plasm a glomerular filtration rate/1.73 sq M.predicted among blacks [volume rate/area] in serum, plasma or blood by creatinine-b ased formula (MDRD) low: 60 GFR, EST. AFRIC AN >60 >=60 07/20 8:40 PM BORE MILL OPERATOR FOR PLASTIC [facility] Not Available Not Available 10/01/2024 03:21:24 07/20/20 24 07/20/2024 Compr ehens larry metab olic 2000 panel - Serum or Plasm a glomerular filtration rate/1.73 sq M.predicted among non-blacks [volume rate/area] in serum, plasma or blood by creatinine-b ased formula (MDRD) low: 60 GFR, EST. NONAF RICAN >60 >=60 07/20 8:40 PM BORE MILL OPERATOR FOR PLASTIC [facility] Not Available [...] DE <15 <100 pg/mL 07/20 9:39 PM BORE MILL OPERATOR FOR PLASTIC [facility] Not Available Not Available 10/01/2024 03:21:24 07/20/20 24 07/20/2024 Natri ureti c pepti de B [Mass /volu me] in Serum or Plasm a interpretati on and review of laboratory results Normal Not Available Not Available 09/06 03:21:24 08/28/19 25 08/29/2024 LIPID PANEL cholesterol, total 233 mg/dL 100-19 9 above high normal Not Available [facility] ([facility]) [address] [facility] [address], [place], [address], 08/29/2024 10:36:26 08/28/19 25 08/29/2024 LIPID PANEL triglyceride s 222 mg/dL 0-149 above high normal Not Available [facility] ([facility]) [address] [facility] [address], [place], [address], 08/29/2024 10:36:26 08/28/19 25 08/29/2024 LIPID PANEL HDL cholesterol 58 mg/dL >39 Not Available [facility] ([facility]) [address] [place], [address], 08/29/2024 10:36:26 08/28/19 25 08/29/2024 LIPID PANEL VLDL cholesterol selene 39 mg/dL 5-40 Not Available [facility] ([facility]) [address] [place], [address], 08/29/2024 10:36:26 08/28/19 25 08/29/2024 LIPID PANEL LDL chol calc ([facility]) 136 mg/dL 0-99 above high normal Not Available [facility] ([facility]) [address] [place], [address], 08/29/2024 10:36:26 08/28/19 25 08/29/2024 COMP. METAB OLIC PANEL (14) glucose 95 mg/dL 70-99 Not Available [facility] ([facility]) [address] [place], [address], 08/29/2024 10:36:27 08/28/19 25 08/29/2024 COMP. METAB OLIC PANEL (14) BUN 14 mg/dL 6-24 Not Available [facility] ([facility]) [address] [place], [address], 08/29/2024 10:36:27 08/28/19 25 08/29/2024 COMP. METAB OLIC PANEL (14) creatinine 0.76 mg/dL 0.57-1 .00 Not Available [facility] ([facility]) [address] [place], [address], 08/29/2024 10:36:27 08/28/19 25 08/29/2024 COMP. METAB OLIC PANEL (14) eGFR 98 mL/mi n/1.7 3 >59 Not Available [facility] ([facility]) [address] [facility] [address], [place], [address], 08/29/2024 10:36:27 08/28/19 25 08/29/2024 COMP. METAB OLIC PANEL (14) BUN/creatini ne ratio 18 9-23 Not Available [facility] ([facility]) [address] [facility] [address], [place], [address], 08/29/2024 10:36:27 08/28/19 25 08/29/2024 COMP. METAB OLIC PANEL (14) sodium 139 mmol/ L 134-14 4 Not Available [facility] ([facility]) [address] [facility] [place], [address], 08/29/2024 10:36:27 08/28/19 25 08/29/2024 COMP. METAB OLIC PANEL (14) potassium 4.7 mmol/ L 3.5-5. 2 Not Available [facility] ([facility]) [address] [facility] [address], [place], [address], 08/29/2024 10:36:27 08/28/19 25 08/29/2024 COMP. METAB OLIC PANEL (14) chloride 107 mmol/ L 96-106 above high normal Not Available [facility] ([facility]) [address] [facility] [address], [place], [address], 08/29/2024 10:36:27 08/28/19 25 08/29/2024 COMP. METAB OLIC PANEL (14) carbon dioxide, total 20 mmol/ L 20-29 Not Available [facility] ([facility]) [address] [facility] [place], [address], 08/29/2024 10:36:27 08/28/19 25 08/29/2024 COMP. METAB OLIC PANEL (14) calcium 9.0 mg/dL 8.7-10 .2 Not Available [facility] ([facility]) [address] [facility] [place], [address], 08/29/2024 10:36:27 08/28/19 25 08/29/2024 COMP. METAB OLIC PANEL (14) protein, total 6.2 g/dL 6.0-8. 5 Not Available [facility] ([facility]) [address] [facility], [place], [address], 08/29/2024 10:36:27 08/28/19 25 08/29/2024 COMP. METAB OLIC PANEL (14) albumin 4.0 g/dL 3.9-4. 9 Not Available [facility] ([facility]) [address] [facility] [address], [place], [address], 08/29/2024 10:36:27 08/28/19 25 08/29/2024 COMP. METAB OLIC PANEL (14) globulin, total 2.2 g/dL 1.5-4. 5 Not Available [facility] ([facility]) [address] [facility], [place], [address], 08/29/2024 10:36:27 08/28/19 25 08/29/2024 COMP. METAB OLIC PANEL (14) bilirubin, total <0.2 mg/dL 0.0-1. 2 Not Available [facility] ([facility]) [address] [facility], [place], [address], 08/29/2024 10:36:27 08/28/19 25 08/29/2024 COMP. METAB OLIC PANEL (14) alkaline phosphatase 110 IU/L 44-121 Not Available [facility] ([facility]) [address] [facility], [place], [address], 08/29/2024 10:36:27 08/28/19 25 08/29/2024 COMP. METAB OLIC PANEL (14) AST (SGOT) 20 IU/L 0-40 Not Available [facility] ([facility]) [address] [facility], [place] [place], [address], 08/29/2024 10:36:27 08/28/19 25 08/29/2024 COMP. METAB OLIC PANEL (14) ALT (SGPT) 13 IU/L 0-32 Not Available [facility] ([facility]) [address] [place], [address], 08/29/2024 10:36:27 08/28/19 25 08/29/2024 IRON AND TIBC iron bind.cap.(TI BC) 429 ug/dL 250-45 0 Not Available [facility] ([facility]) [address] [place], [address], 08/29/2024 10:36:28 08/28/19 25 08/29/2024 IRON AND TIBC UIBC 415 ug/dL 131-42 5 Not Available [facility] ([facility]) [address] [place], [address], 08/29/2024 10:36:28 08/28/19 25 08/29/2024 IRON AND TIBC iron 14 ug/dL 27-159 below low normal Not Available [facility] ([facility]) [address] [place], [address], 08/29/2024 10:36:28 08/28/19 25 08/29/2024 IRON AND TIBC iron saturation 3 % 15-55 alert low Not Available [facility] ([facility]) [address] [place], [address], 08/29/2024 10:36:28 08/28/19 25 08/29/2024 VITAM IN B12 vitamin B12 274 pg/mL 232-12 45 Not Available [facility] ([facility]) [address] [place], [address], 08/29/2024 10:36:29 08/28/19 25 08/29/2024 TORIE TIN ferritin 7 NG/mL 15-150 below low normal Not Available [facility] ([facility]) [address] [place], [address], 08/29/2024 10:36:30 08/28/1908/29/2024 CBC WITH DIFFE RENTI AL/PL ATELE T WBC 5.3 x10e3 /uL 3.4-10 .8 Not Available [facility] ([facility]) [address] [place], [address], 08/29/2024 10:36:31 08/28/1908/29/2024 CBC WITH DIFFE RENTI AL/PL ATELE T RBC 4.24 x10e6 /uL 3.77-5 .28 Not Available [facility] ([facility]) [address] [place], [address], 08/29/2024 10:36:31 08/28/1908/29/2024 CBC WITH DIFFE RENTI AL/PL ATELE T hemoglobin 9.6 g/dL 11.1-1 5.9 below low normal Not Available [facility] ([facility]) [address] [place], [address], 08/29/2024 10:36:31 08/28/1908/29/2024 CBC WITH DIFFE RENTI AL/PL ATELE T hematocrit 31.9 % 34.0-4 6.6 below low normal Not Available [facility] ([facility]) [address] [place], [address], 08/29/2024 10:36:31 08/28/1908/29/2024 CBC WITH DIFFE RENTI AL/PL ATELE T MCV 75 fL 79-97 below low normal Not Available [facility] ([facility]) [address] [place], [address], 08/29/2024 10:36:31 08/28/1908/29/2024 CBC WITH DIFFE RENTI AL/PL ATELE T MCH 22.6 pg 26.6-3 3.0 below low normal Not Available [facility] ([facility]) [address] [facility] [place], [address], 08/29/2024 10:36:31 08/28/1908/29/2024 CBC WITH DIFFE RENTI AL/PL ATELE T MCHC 30.1 g/dL 31.5-3 5.7 below low normal Not Available [facility] ([facility]) [address] [facility], [place], [address], 08/29/2024 10:36:31 08/28/1908/29/2024 CBC WITH DIFFE RENTI AL/PL ATELE T RDW 16.3 % 11.7-1 5.4 above high normal Not Available [facility] ([facility]) [address] [facility], [place], [address], 08/29/2024 10:36:31 08/28/19 25 08/29/2024 CBC WITH DIFFE RENTI AL/PL ATELE T platelets 418 x10e3 /uL 150-45 0 Not Available [facility] ([facility]) [address] [facility], [place], [address], 08/29/2024 10:36:31 08/28/1908/29/2024 CBC WITH DIFFE RENTI AL/PL ATELE T neutrophils 55 % notest ab. Not Available [facility] ([facility]) [address] [facility], [place], [address], 08/29/2024 10:36:31 08/28/19 25 08/29/2024 CBC WITH DIFFE RENTI AL/PL ATELE T lymphs 32 % notest ab. Not Available [facility] ([facility]) [address] [facility], [place], [address], 08/29/2024 10:36:31 08/28/19 25 08/29/2024 CBC WITH DIFFE RENTI AL/PL ATELE T monocytes 8 % notest ab. Not Available [facility] ([facility]) [address] [place], [address], 08/29/2024 10:36:31 08/28/19 25 08/29/2024 CBC WITH DIFFE RENTI AL/PL ATELE T eos 4 % notest ab. Not Available [facility] ([facility]) [address] [place], [address], 08/29/2024 10:36:31 08/28/19 25 08/29/2024 CBC WITH DIFFE RENTI AL/PL ATELE T basos 1 % notest ab. Not Available [facility] ([facility]) [address] [place], [address], 08/29/2024 10:36:31 08/28/19 25 08/29/2024 CBC WITH DIFFE RENTI AL/PL ATELE T neutrophils (absolute) 3.0 x10e3 /uL 1.4-7. 0 Not Available [facility] ([facility]) [address] [place], [address], 08/29/2024 10:36:31 08/28/19 25 08/29/2024 CBC WITH DIFFE RENTI AL/PL ATELE T lymphs (absolute) 1.7 x10e3 /uL 0.7-3. 1 Not Available [facility] ([facility]) [address] [place], [address], 08/29/2024 10:36:31 08/28/1908/29/2024 CBC WITH DIFFE RENTI AL/PL ATELE T monocytes(ab solute) 0.4 x10e3 /uL 0.1-0. 9 Not Available [facility] ([facility]) [address] [place], [address], 08/29/2024 10:36:31 08/28/19 25 08/29/2024 CBC WITH DIFFE RENTI AL/PL ATELE T eos (absolute) 0.2 x10e3 /uL 0.0-0. 4 Not Available [facility] ([facility]) [address] [facility], [place], [address], 08/29/2024 10:36:31 08/28/19 25 08/29/2024 CBC WITH DIFFE RENTI AL/PL ATELE T baso (absolute) 0.0 x10e3 /uL 0.0-0. 2 Not Available [facility] ([facility]) [address] [facility], [place], [address], 08/29/2024 10:36:31 08/28/19 25 08/29/2024 CBC WITH DIFFE RENTI AL/PL ATELE T immature granulocytes 0 % notest ab. Not Available [facility] ([facility]) [address] [facility], [place], [address], 08/29/2024 10:36:31 08/28/19 25 08/29/2024 CBC WITH DIFFE RENTI AL/PL ATELE T immature grans (abs) 0.0 x10e3 /uL 0.0-0. 1 Not Available [facility] ([facility]) [address] [facility], [place], [address], 08/29/2024 10:36:31 09/02/19 25 09/04/2024 Helic obact er pylor i Ag [Pres ence] in Stool by Immun oassa y helicobacter pylori Ag [presence] in stool by immunoassay Negati ve text: negati ve Helic obact er pylor i Antig en Stool Negat larry Negat larry 09/04 1:46 PM [employer] [facility] ([facility]) Not Available Not Available 09/15/2024 12:27:14 09/03/1909/05/2024 COLOF IT,OC CULT BLOOD ,FECA L,IA occult blood, fecal, ia NEGATI VE negati ve Not Available [facility] ([facility]) [address] [facility], [place], [address], 09/05/2024 14:09:38 10/01/19 25 10/02/2024 LIPID PANEL cholesterol, total 216 mg/dL 100-19 9 above high normal Not Available [facility] ([facility]) [address] [place], [address], 10/02/2024 08:38:42 10/01/19 25 10/02/2024 LIPID PANEL triglyceride s 151 mg/dL 0-149 above high normal Not Available [facility] ([facility]) [address] [place], [address], 10/02/2024 08:38:42 10/01/19 25 10/02/2024 LIPID PANEL HDL cholesterol 61 mg/dL >39 Not Available [facility] ([facility]) [address] [place], [address], 10/02/2024 08:38:42 10/01/19 25 10/02/2024 LIPID PANEL VLDL cholesterol selene 27 mg/dL 5-40 Not Available [facility] ([facility]) [address] [place], [address], 10/02/2024 08:38:42 10/01/19 25 10/02/2024 LIPID PANEL LDL chol calc ([facility]) 128 mg/dL 0-99 above high normal Not Available [facility] ([facility]) [address] [place], [address], 10/02/2024 08:38:42 10/01/19 25 10/02/2024 IRON AND TIBC iron bind.cap.(TI BC) 395 ug/dL 250-45 0 Not Available [facility] ([facility]) [address] [place], [address], 10/02/2024 08:38:43 10/01/19 25 10/02/2024 IRON AND TIBC UIBC 332 ug/dL 131-42 5 Not Available [facility] ([facility]) [address] [place], [address], 10/02/2024 08:38:43 10/01/19 25 10/02/2024 IRON AND TIBC iron 63 ug/dL 27-159 Not Available [facility] ([facility]) [address] [place], [address], 10/02/2024 08:38:43 10/01/19 25 10/02/2024 IRON AND TIBC iron saturation 16 % 15-55 Not Available [facility] ([facility]) [address] [place], [address], 10/02/2024 08:38:43 10/01/19 25 10/02/2024 TORIE TIN ferritin 13 NG/mL 15-150 below low normal Not Available [facility] ([facility]) [address] [place], [address], 10/02/2024 08:38:44 10/01/19 25 10/02/2024 CBC, PLATE LET, NO DIFFE RENTI AL WBC 5.5 x10e3 /uL 3.4-10 .8 Not Available [facility] ([facility]) [address] [place], [address], 10/02/2024 08:38:46 10/01/19 25 10/02/2024 CBC, PLATE LET, NO DIFFE RENTI AL RBC 4.64 x10e6 /uL 3.77-5 .28 Not Available [facility] ([facility]) [address] [place], [address], 10/02/2024 08:38:46 10/01/1910/02/2024 CBC, PLATE LET, NO DIFFE RENTI AL hemoglobin 10.8 g/dL 11.1-1 5.9 below low normal Not Available [facility] ([facility]) [address] [place], [address], 10/02/2024 08:38:46 10/01/19 25 10/02/2024 CBC, PLATE LET, NO DIFFE RENTI AL hematocrit 36.0 % 34.0-4 6.6 Not Available [facility] ([facility]) [address] [facility], [place], [address], 10/02/2024 08:38:46 10/01/1910/02/2024 CBC, PLATE LET, NO DIFFE RENTI AL MCV 78 fL 79-97 below low normal Not Available [facility] ([facility]) [address] [facility], [place], [address], 10/02/2024 08:38:46 10/01/1910/02/2024 CBC, PLATE LET, NO DIFFE RENTI AL MCH 23.3 pg 26.6-3 3.0 below low normal Not Available [facility] ([facility]) [address] [facility], [place], [address], 10/02/2024 08:38:46 10/01/1910/02/2024 CBC, PLATE LET, NO DIFFE RENTI AL MCHC 30.0 g/dL 31.5-3 5.7 below low normal Not Available [facility] ([facility]) [address] [place], [address], 10/02/2024 08:38:46 10/01/19 25 10/02/2024 CBC, PLATE LET, NO DIFFE RENTI AL RDW 18.8 % 11.7-1 5.4 above high normal Not Available [facility] ([facility]) [address] [place], [address], 10/02/2024 08:38:46 10/01/1910/02/2024 CBC, PLATE LET, NO DIFFE RENTI AL platelets 411 x10e3 /uL 150-45 0 Not Available [facility] ([facility]) [address] [place], [address], 10/02/2024 08:38:46 10/09/19 25 10/08/2024 Hemog lobin and Hemat ocrit panel - Blood hemoglobin [mass/volume ] in blood 10.9 g/dL low: 11.9g/ dLhigh : 15.8g/ dL low Hemog lobin 10.9 (L) 11.9 - 15.8 g/dL 10/08 7:21 PM [facility] Not Available Not Available 10/09/2024 11:25:25 10/09/19 25 10/08/2024 Hemog lobin and Hemat ocrit panel - Blood hematocrit [volume fraction] of blood by automated count 35.8 % low: 34.8%h igh: 46.1% Hemat ocrit 35.8 34.8 - 46.1 % 10/08 7:21 PM [facility] Not Available Not Available 10/09/2024 11:25:25 10/09/1910/08/2024 Hemog lobin and Hemat ocrit panel - Blood interpretati on and review of laboratory results Abnorm al Not Available Not Available 11:25:25 10/09/19 25 10/08/2024 Blood type and Indir ect antib kayla scree n panel - Blood blood group antibody screen [presence] in serum or plasma NEG Antib kayla Scree n NEG 10/08 4:24 PM [facility] Not Available Not Available 10/09/2024 11:25:25 10/09/19 25 10/08/2024 Blood type and Indir ect antib kayla scree n panel - Blood ABO and Rh group [type] in blood O POS ABO Rh O POS 10/08 4:24 PM [facility] Not Available Not Available 10/09/2024 11:25:25 10/09/19 25 10/08/2024 Compr ehens larry metab olic 2000 panel - Serum or Plasm a urea nitrogen [mass/volume ] in serum or plasma 11 mg/dL low: 7mg/dL high: 26mg/d L BUN 11 7 - 26 mg/dL 10/08 4:02 PM [facility] Not Available Not Available 10/09/2024 11:25:25 10/09/19 25 10/08/2024 Compr ehens larry metab olic 2000 panel - Serum or Plasm a creatinine [mass/volume ] in serum or plasma 0.63 mg/dL low: 0.56mg /dLhig h: 0.96mg /dL Creat inine 0.63 0.56 - 0.96 mg/dL 10/08 4:02 PM [facility] Not Available Not Available 10/09/2024 11:25:25 10/09/19 25 10/08/2024 Compr ehens larry metab olic 1999 panel - Serum or Plasm a sodium [moles/volum e] in serum or plasma 138 mmol/ L low: 136mmo l/Lhig h: 145mmo l/L Sodiu m 138 136 - 145 mmol/ L 10/08 4:02 PM [facility] Not Available Not Available 10/09/2024 11:25:25 10/09/1910/08/2024 Compr ehens larry metab olic 2000 panel - Serum or Plasm a potassium [moles/volum e] in serum or plasma 4.2 mmol/ L low: 3.5mmo l/Lhig h: 4.5mmo l/L Potas sium 4.2 3.5 - 4.5 mmol/ L 10/08 4:02 PM [facility] Not Available Not Available 10/09/2024 11:25:25 10/09/1910/08/2024 Compr ehens larry metab olic 2000 panel - Serum or Plasm a chloride [moles/volum e] in serum or plasma 107 mmol/ L low: 98mmol /Lhigh : 107mmo l/L Chlor emre 107 98 - 107 mmol/ L 10/08 4:02 PM [facility] Not Available Not Available 10/09/2024 11:25:25 10/09/1910/08/2024 Compr ehens larry metab olic 2000 panel - Serum or Plasm a carbon dioxide, total [moles/volum e] in serum or plasma 22 mmol/ L low: 22mmol /Lhigh : 29mmol /L CO2 22 22 - 29 mmol/ L 10/08 4:02 PM [facility] Not Available Not Available 10/09/2024 11:25:25 10/09/19 10/08/2024 Compr Exajoule larry metab olic 1999 panel - Serum or Plasm a glucose [mass/volume ] in serum or plasma 88 mg/dL low: 70mg/d Lhigh: 99mg/d L Gluco se 88 70 - 99 mg/dL 10/08 4:02 PM [employer] [facility] Not Available Not Available 10/09/2024 11:25:25 10/09/19 25 10/08/2024 Compr ens larry metab olic 2000 panel - Serum or Plasm a calcium [moles/volum e] in serum or plasma 8.9 mg/dL low: 8.4mg/ dLhigh : 10.2mg /dL Calci um 8.9 8.4 - 10.2 mg/dL 10/08 4:02 PM [facility] Not Available Not Available 10/09/2024 11:25:25 10/09/19 25 10/08/2024 Compr [employer] larry metab olic 2000 panel - Serum or Plasm a protein [mass/volume ] in serum or plasma 6.8 g/dL low: 6g/dLh igh: 8.3g/d L Prote in Total 6.8 6.0 - 8.3 g/dL 10/08 4:02 PM [facility] [employer] [facility] Not Available Not Available 10/09/2024 11:25:25 10/09/19 25 10/08/2024 [facility] Exajoule larry metab olic 2000 panel - Serum or Plasm a albumin [mass/volume ] in serum or plasma by bromocresol green (bcg) dye binding method 3.9 g/dL low: 3.4g/d Lhigh: 5g/dL Album in 3.9 3.4 - 5.0 g/dL 10/08 4:02 PM [employer] [facility] Not Available Not Available 10/09/2024 11:25:25 10/09/19 25 10/08/2024 Compr Exajoule larry metab olic 2000 panel - Serum or Plasm a bilirubin.to maximilian [mass/volume ] in serum or plasma 0.2 mg/dL low: 0.2mg/ dLhigh : 1.2mg/ dL Bilir ubin Total 0.2 0.2 - 1.2 mg/dL 10/08 4:02 PM [employer] [facility] Not Available Not Available 10/09/2024 11:25:25 10/09/19 25 10/08/2024 Compr ehens larry metab olic 1999 panel - Serum or Plasm a alkaline phosphatase [enzymatic activity/vol ume] in serum or plasma 111 U/L low: 40U/Lh igh: 150U/L Alkal ine Phosp hatas e 111 40 - 150 U/L 10/08 4:02 PM [facility] Not Available Not Available 10/09/2024 11:25:25 10/09/19 25 10/08/2024 Compr ehens larry metab olic 1999 panel - Serum or Plasm a alanine aminotransfe rase [enzymatic activity/vol ume] in serum or plasma by no addition of P-5'-P 23 U/L low: 5U/Lhi gh: 55U/L ALT 23 5 - 55 U/L 10/08 4:02 PM [facility] Not Available Not Available 10/09/2024 11:25:25 10/09/19 25 10/08/2024 Compr ehens larry metab olic 1999 panel - Serum or Plasm a aspartate aminotransfe rase [enzymatic activity/vol ume] in serum or plasma 25 U/L low: 5U/Lhi gh: 34U/L AST 25 5 - 34 U/L 10/08 4:02 PM [facility] Not Available Not Available 10/09/2024 11:25:25 10/09/19 25 10/08/2024 Compr ehens larry metab olic 1999 panel - Serum or Plasm a anion gap 9 low: 6high: 16 Anion Gap 9 6 - 16 10/08 4:02 PM [employer] [facility] Not Available Not Available 10/09/2024 11:25:25 10/09/19 25 10/08/2024 Compr ehens larry metab olic 2000 panel - Serum or Plasm a urea nitrogen/cre atinine [mass ratio] in serum or plasma 17 low: 7high: 23 BUN/C reati nine Ratio 17 7 - 23 10/08 4:02 PM [employer] [facility] Not Available Not Available 10/09/2024 11:25:25 10/09/19 25 10/08/2024 Compr ehens larry metab olic 2000 panel - Serum or Plasm a osmolality calculated 285 text: 275 - 295 mOsm/k g Osmol alivamsi Calcu lated 285 275 - 295 mOsm/ kg 10/08 4:02 PM [employer] [facility] Not Available Not Available 10/09/2024 11:25:25 10/09/19 25 10/08/2024 Compr ehens larry metab olic 2000 panel - Serum or Plasm a albumin/glob ulin ratio 1.3 low: 1.1hig h: 2.3 Album in/Gl obuli n Ratio 1.3 1.1 - 2.3 10/08 4:02 PM [employer] [facility] Not Available Not Available 10/09/2024 11:25:25 10/09/19 25 10/08/2024 Compr ehens larry metab olic 2000 panel - Serum or Plasm a glomerular filtration rate/1.73 sq M.predicted [volume rate/area] in serum, plasma or blood by creatinine-b ased formula (CKD-epi 2020) text: >=90 mL/min /1.73 m2 eGFR by CKD-E PI >90 >=90 mL/mi n/1.7 3 m2 10/08 4:02 PM [employer] [facility] Not Available [...] - 10.7 x10E9 /L 10/08 3:40 PM [employer] [facility] Not Available Not Available 10/09/2024 11:25:25 10/09/19 25 10/08/2024 CBC W Auto Diffe ernesto al panel - Blood erythrocytes [#/volume] in blood by automated count 4.54 text: 3.90 - 5.20 x10e12 /L RBC Count 4.54 3.90 - 5.20 x10E1 2/L 10/08 3:40 PM [employer] [facility] Not Available Not Available 10/09/2024 11:25:25 10/09/19 25 10/08/2024 CBC W Auto Diffe ernesto al panel - Blood hemoglobin [mass/volume ] in blood 10.9 g/dL low: 11.9g/ dLhigh : 15.8g/ dL low Hemog lobin 10.9 (L) 11.9 - 15.8 g/dL 10/08 3:40 PM [employer] [facility] Not Available Not Available 10/09/2024 11:25:25 10/09/1910/08/2024 CBC W Auto Diffe ernesto al panel - Blood hematocrit [volume fraction] of blood by automated count 34.6 % low: 34.8%h igh: 46.1% low Hemat ocrit 34.6 (L) 34.8 - 46.1 % 10/08 3:40 PM [employer] [facility] Not Available Not Available 10/09/2024 11:25:25 10/09/19 25 10/08/2024 CBC W Auto Diffe renti al panel - Blood MCV [entitic volume] by automated count 76.2 fL low: 80fLhi gh: 98fL low MCV 76.2 (L) 80.0 - 98.0 fL 10/08 3:40 PM [employer] [facility] Not Available Not Available 10/09/2024 11:25:25 10/09/19 25 10/08/2024 CBC W Auto Diffe renti al panel - Blood MCH [entitic mass] by automated count 24 pg low: 26.7pg high: 33.6pg low MCH 24.0 (L) 26.7 - 33.6 pg 10/08 3:40 PM [employer] [facility] Not Available Not Available 10/09/2024 11:25:25 10/09/19 25 10/08/2024 CBC W Auto Diffe renti al panel - Blood MCHC [mass/volume ] by automated count 31.5 g/dL low: 31.7g/ dLhigh : 36.3g/ dL low MCHC 31.5 (L) 31.7 - 36.3 g/dL 10/08 3:40 PM [facility] Not Available Not Available 10/09/2024 11:25:25 10/09/19 25 10/08/2024 CBC W Auto Diffe renti al panel - Blood erythrocyte distribution width [ratio] by automated count 19.3 % low: 11.3%h igh: 14.8% high RDW-C V 19.3 (H) 11.3 - 14.8 % 10/08 3:40 PM [facility] Not Available Not Available 10/09/2024 11:25:25 10/09/19 25 10/08/2024 CBC W Auto Diffe renti al panel - Blood platelets [#/volume] in blood by automated count 392 text: 150 - 420 x10e9/ L Plate let Count 392 150 - 420 x10E9 /L 10/08 3:40 PM [facility] Not Available Not Available 10/09/2024 11:25:25 10/09/19 25 10/08/2024 CBC W Auto Diffe renti al panel - Blood platelet mean volume [entitic volume] in blood by automated count 9.6 fL low: 7.8fLh igh: 11.4fL MPV 9.6 7.8 - 11.4 fL 10/08 3:40 PM [facility] Not Available Not Available 10/09/2024 11:25:25 10/09/19 25 10/08/2024 CBC W Auto Diffe renti al panel - Blood neutrophils/ 100 leukocytes in blood by automated count 62.1 % low: 41%hig h: 74% Neutr ophil % 62.1 41.0 - 74.0 % 10/08 3:40 PM [employer] [facility] Not Available Not Available 10/09/2024 11:25:25 10/09/19 25 10/08/2024 CBC W Auto Diffe renti al panel - Blood lymphocytes/ 100 leukocytes in blood by automated count 26.5 % low: 17%hig h: 47% Lymph ocyte % 26.5 17.0 - 47.0 % 10/08 3:40 PM [employer] [facility] Not Available Not Available 10/09/2024 11:25:25 10/09/19 25 10/08/2024 CBC W Auto Diffe renti al panel - Blood monocytes/10 0 leukocytes in blood by automated count 6.8 % low: 3%high : 11% Monoc yte % 6.8 3.0 - 11.0 % 10/08 3:40 PM [employer] [facility] Not Available Not Available 10/09/2024 11:25:25 10/09/19 25 10/08/2024 CBC W Auto Diffe renti al panel - Blood eosinophils/ 100 leukocytes in blood by automated count 3.8 % low: 0%high : 7% Eosin ophil % 3.8 0.0 - 7.0 % 10/08 3:40 PM [employer] [facility] Not Available Not Available 10/09/2024 11:25:25 10/09/19 25 10/08/2024 CBC W Auto Diffe renti al panel - Blood basophils/10 0 leukocytes in blood by automated count 0.6 % low: 0%high : 1.6% Basop hil % 0.6 0.0 - 1.6 % 10/08 3:40 PM [employer] [facility] Not Available Not Available 10/09/2024 11:25:25 10/09/19 25 10/08/2024 CBC W Auto Diffe renti al panel - Blood immature granulocytes /100 leukocytes in blood by automated count 0.2 % low: 0%high : 1% Immat ure Granu locyt es % 0.2 0.0 - 1.0 % 10/08 3:40 PM [employer] [facility] Not Available Not Available 10/09/2024 11:25:25 10/09/19 25 10/08/2024 CBC W Auto Diffe renti al panel - Blood neutrophils [#/volume] in blood by automated count 3.92 text: 1.60 - 7.50 x10e9/ L Neutr ophil Absol [place] 3.92 1.60 - 7.50 x10E9 /L 10/08 3:40 PM [employer] [facility] Not Available Not Available 10/09/2024 11:25:25 10/09/19 25 10/08/2024 CBC W Auto Diffe renti al panel - Blood lymphocytes [#/volume] in blood by automated count 1.67 text: 1.00 - 4.40 x10e9/ L Lymph ocyte Absol [place] 1.67 1.00 - 4.40 x10E9 /L 10/08 3:40 PM [employer] [facility] Not Available Not Available 10/09/2024 11:25:25 10/09/19 25 10/08/2024 CBC W Auto Diffe renti al panel - Blood monocytes [#/volume] in blood by automated count 0.43 text: 0.15 - 1.00 x10e9/ L Monoc yte Absol [place] 0.43 0.15 - 1.00 x10E9 /L 10/08 3:40 PM [employer] [facility] [employer] [facility] Not Available Not Available 10/09/2024 11:25:25 10/09/19 25 10/08/2024 CBC W Auto Diffe renti al panel - Blood eosinophils [#/volume] in blood 0.24 text: 0.00 - 0.60 x10e9/ L Eosin ophil Absol [place] 0.24 0.00 - 0.60 x10E9 /L 10/08 3:40 PM [employer] [facility] MAXIMILIAN Not Available Not Available 10/09/2024 11:25:25 10/09/19 25 10/08/2024 CBC W Auto Diffe renti al panel - Blood basophils [#/volume] in blood by automated count 0.04 text: 0.00 - 0.13 x10e9/ L Basop hil Absol [place] 0.04 0.00 - 0.13 x10E9 /L 10/08 3:40 PM [employer] [facility] MAXIMILIAN Not Available Not Available 10/09/2024 11:25:25 10/09/19 25 10/08/2024 CBC W Auto Diffe renti al panel - Blood interpretati on and review of laboratory results Abnorm al Not Available Not Available 11:25:25 10/10/19 25 10/09/2024 PT panel - Plate let poor plasm a by Coagu latio n assay prothrombin time (PT) 12.5 text: 11.6 - 14.8 sec PROTI ME-PA TIENT 12.5 11.6 - 14.8 sec 10/09 6:00 PM [employer] OPER[employer] [facility] Not Available Not Available 10/14/2024 11:16:07 10/10/19 25 10/09/2024 PT panel - Plate let poor plasm a by Coagu latio n assay INR in platelet poor plasma by coagulation assay 0.9 low: 0.9hig h: 1.2 INR 0.9 0.9 - 1.2 10/09 6:00 PM [employer] [facility] Not Available Not Available 10/14/2024 11:16:07 10/10/19 25 10/09/2024 PT panel - Plate let poor plasm a by Coagu latio n assay interpretati on and review of laboratory results Normal Not Available Not Available 10/03 11:16:07 10/10/19 25 10/09/2024 Magne sium [Mass /volu me] in Serum or Plasm a magnesium [mass/volume ] in serum or plasma 2.2 mg/dL low: 1.6mg/ dLhigh : 2.6mg/ dL MAGNE SIUM 2.2 1.6 - 2.6 mg/dL 10/09 5:04 PM [employer]PERATOR [employer] [facility] Not Available Not Available 10/14/2024 11:16:07 10/10/19 25 10/09/2024 Magne sium [Mass /volu me] in Serum or Plasm a interpretati on and review of laboratory results Normal Not Available Not Available 10/03 11:16:07 10/10/19 25 10/09/2024 CBC W Auto Diffe renti al panel - Blood leukocytes [#/volume] in blood by automated count 5.3 text: 4.0 - 10.7 x10e9/ L WBC 5.3 4.0 - 10.7 x10E9 /L 10/09 2:32 AM [employer] [facility] [employer] [facility] MAXIMILIAN Not Available Not Available 10/09/2024 11:25:25 10/10/19 25 10/09/2024 CBC W Auto Diffe renti al panel - Blood erythrocytes [#/volume] in blood by automated count 4.21 text: 3.90 - 5.20 x10e12 /L RBC Count 4.21 3.90 - 5.20 x10E1 2/L 10/09 2:32 AM [facility] [employer] [facility] MAXIM[facility]IAN Not Available Not Available 10/09/2024 11:25:25 10/10/19 25 10/09/2024 CBC W Auto Diffe renti al panel - Blood hemoglobin [mass/volume ] in blood 10 g/dL low: 11.9g/ dLhigh : 15.8g/ dL low Hemog lobin 10.0 (L) 11.9 - 15.8 g/dL 10/09 2:32 AM [facility] [employer] [facility] MAXIMILIAN Not Available Not Available 10/09/2024 11:25:25 10/10/19 25 10/09/2024 CBC W Auto Diffe renti al panel - Blood hematocrit [volume fraction] of blood by automated count 32.2 % low: 34.8%h igh: 46.1% low Hemat ocrit 32.2 (L) 34.8 - 46.1 % 10/09 2:32 AM [facility] [employer] [facility] MAXIMILIAN Not Available Not Available 10/09/2024 11:25:25 10/10/19 25 10/09/2024 CBC W Auto Diffe renti al panel - Blood MCV [entitic volume] by automated count 76.5 fL low: 80fLhi gh: 98fL low MCV 76.5 (L) 80.0 - 98.0 fL 10/09 2:32 AM [facility] [employer] [facility] MAXIMILIAN Not Available Not Available 10/09/2024 11:25:25 10/10/19 25 10/09/2024 CBC W Auto Diffe renti al panel - Blood MCH [entitic mass] by automated count 23.8 pg low: 26.7pg high: 33.6pg low MCH 23.8 (L) 26.7 - 33.6 pg 10/09 2:32 AM [facility] MAXIMILIAN Not Available Not Available 10/09/2024 11:25:25 10/10/19 25 10/09/2024 CBC W Auto Diffe renti al panel - Blood MCHC [mass/volume ] by automated count 31.1 g/dL low: 31.7g/ dLhigh : 36.3g/ dL low MCHC 31.1 (L) 31.7 - 36.3 g/dL 10/09 2:32 AM [facility] MAXIMILIAN Not Available Not Available 10/09/2024 11:25:25 10/10/19 25 10/09/2024 CBC W Auto Diffe renti al panel - Blood erythrocyte distribution width [ratio] by automated count 19.6 % low: 11.3%h igh: 14.8% high RDW-C V 19.6 (H) 11.3 - 14.8 % 10/09 2:32 AM [facility] Not Available Not Available 10/09/2024 11:25:25 10/10/19 25 10/09/2024 CBC W Auto Diffe renti al panel - Blood platelets [#/volume] in blood by automated count 340 text: 150 - 420 x10e9/ L Plate let Count 340 150 - 420 x10E9 /L 10/09 2:32 AM [facility] [employer] [facility] MAXIMILIAN Not Available Not Available 10/09/2024 11:25:25 10/10/19 25 10/09/2024 CBC W Auto Diffe renti al panel - Blood platelet mean volume [entitic volume] in blood by automated count 9.3 fL low: 7.8fLh igh: 11.4fL MPV 9.3 7.8 - 11.4 fL 10/09 2:32 AM [facility] [employer] [facility] MAXIMILIAN Not Available Not Available 10/09/2024 11:25:25 10/10/19 25 10/09/2024 CBC W Auto Diffe renti al panel - Blood neutrophils/ 100 leukocytes in blood by automated count 73.3 % low: 41%hig h: 74% Neutr ophil % 73.3 41.0 - 74.0 % 10/09 2:32 AM [employer] [facility] MAXIMILIAN Not Available Not Available 10/09/2024 11:25:25 10/10/19 25 10/09/2024 CBC W Auto Diffe renti al panel - Blood lymphocytes/ 100 leukocytes in blood by automated count 20.8 % low: 17%hig h: 47% Lymph ocyte % 20.8 17.0 - 47.0 % 10/09 2:32 AM [employer] [facility] MAXIMILIAN Not Available Not Available 10/09/2024 11:25:25 10/10/19 25 10/09/2024 CBC W Auto Diffe renti al panel - Blood monocytes/10 0 leukocytes in blood by automated count 4.3 % low: 3%high : 11% Monoc yte % 4.3 3.0 - 11.0 % 10/09 2:32 AM [employer]PER[employer] [facility] MAXIMILIAN Not Available Not Available 10/09/2024 11:25:25 10/10/19 25 10/09/2024 CBC W Auto Diffe renti al panel - Blood eosinophils/ 100 leukocytes in blood by automated count 0.6 % low: 0%high : 7% Eosin ophil % 0.6 0.0 - 7.0 % 10/09 2:32 AM [employer] [facility] MAXIMILIAN Not Available Not Available 10/09/2024 11:25:25 10/10/19 25 10/09/2024 CBC W Auto Diffe renti al panel - Blood basophils/10 0 leukocytes in blood by automated count 0.6 % low: 0%high : 1.6% Basop hil % 0.6 0.0 - 1.6 % 10/09 2:32 AM [employer] OPER[employer] [facility] MAXIMILIAN Not Available Not Available 10/09/2024 11:25:25 10/10/19 25 10/09/2024 CBC W Auto Diffe renti al panel - Blood immature granulocytes /100 leukocytes in blood by automated count 0.4 % low: 0%high : 1% Immat ure Granu locyt es % 0.4 0.0 - 1.0 % 10/09 2:32 AM [facility] [employer] [facility] MAXIMILIAN Not Available Not Available 10/09/2024 11:25:25 10/10/19 25 10/09/2024 CBC W Auto Diffe renti al panel - Blood neutrophils [#/volume] in blood by automated count 3.88 text: 1.60 - 7.50 x10e9/ L Neutr ophil Absol [place] 3.88 1.60 - 7.50 x10E9 /L 10/09 2:32 AM [facility] [employer] [facility] MAXIMILIAN Not Available Not Available 10/09/2024 11:25:25 10/10/19 25 10/09/2024 CBC W Auto Diffe renti al panel - Blood lymphocytes [#/volume] in blood by automated count 1.1 text: 1.00 - 4.40 x10e9/ L Lymph ocyte Absol [place] 1.10 1.00 - 4.40 x10E9 /L 10/09 2:32 AM [facility] [employer] [facility] MAXIMILIAN Not Available Not Available 10/09/2024 11:25:25 10/10/19 25 10/09/2024 CBC W Auto Diffe renti al panel - Blood monocytes [#/volume] in blood by automated count 0.23 text: 0.15 - 1.00 x10e9/ L Monoc yte Absol [place] 0.23 0.15 - 1.00 x10E9 /L 10/09 2:32 AM [facility] [employer] [facility] MAXIMILIAN Not Available Not Available 10/09/2024 11:25:25 10/10/19 25 10/09/2024 CBC W Auto Diffe renti al panel - Blood eosinophils [#/volume] in blood 0.03 text: 0.00 - 0.60 x10e9/ L Eosin ophil Absol [place] 0.03 0.00 - 0.60 x10E9 /L 10/09 2:32 AM [facility] [employer] [facility] MAXIMILIAN Not Available Not Available 10/09/2024 11:25:25 10/10/19 25 10/09/2024 CBC W Auto Diffe renti al panel - Blood basophils [#/volume] in blood by automated count 0.03 text: 0.00 - 0.13 x10e9/ L Basop hil Absol [place] 0.03 0.00 - 0.13 x10E9 /L 10/09 2:32 AM B[employer] OPERATOR [employer] P[employer] [facility] [employer] [facility] MAXIMILIAN Not Available Not Available [...] 1.6 - 2.6 mg/dL 10/09 2:48 AM B[employer] M[employer] OPERATOR FOR PLASTIC [facility] [employer] [facility] MAXIMILIAN Not Available Not Available [...] 2.9 - 5.1 mg/dL 10/09 2:48 AM B[employer] M[employer] OPERATOR [employer]LAST[employer] [facility] [employer] [facility] MAXIMILIAN Not Available Not Available 10/09/2024 11:25:25 10/10/19 25 10/09/2024 Phosp hate [Mass /volu me] in Serum or Plasm a interpretati on and review of laboratory results Normal Not Available Not Available 02/2025 11:25:25 03/0710/09/2024 Basic metab olic 1999 panel - Serum or Plasm a urea nitrogen [mass/volume ] in serum or plasma 9 mg/dL low: 7mg/dL high: 26mg/d L BUN 9 7 - 26 mg/dL 10/09 2:48 AM [facility] MAXIMILIAN Not Available Not Available 10/09/2024 11:25:25 10/10/1910/09/2024 Basic metab olic 1999 panel - Serum or Plasm a creatinine [mass/volume ] in serum or plasma 0.6 mg/dL low: 0.56mg /dLhig h: 0.96mg /dL Creat inine 0.60 0.56 - 0.96 mg/dL 10/09 2:48 AM [facility] MAXIMILIAN Not Available Not Available 10/09/2024 11:25:25 10/10/1910/09/2024 Basic metab olic 1999 panel - Serum or Plasm a sodium [moles/volum e] in serum or plasma 140 mmol/ L low: 136mmo l/Lhig h: 145mmo l/L Sodiu m 140 136 - 145 mmol/ L 10/09 2:48 AM B[employer] M[employer] OPERATOR FOR PLASTIC [facility] MAXIMILIAN Not Available Not Available 10/09/2024 11:25:25 10/10/1910/09/2024 Basic metab olic 2000 panel - Serum or Plasm a potassium [moles/volum e] in serum or plasma 4.4 mmol/ L low: 3.5mmo l/Lhig h: 4.5mmo l/L Potas sium 4.4 3.5 - 4.5 mmol/ L 10/09 2:48 AM B[employer] M[employer] OPERATOR [employer] PLASTIC [facility] MAXIMILIAN Not Available Not Available 10/09/2024 11:25:25 10/10/1910/09/2024 Basic metab olic 2000 panel - Serum or Plasm a chloride [moles/volum e] in serum or plasma 110 mmol/ L low: 98mmol /Lhigh : 107mmo l/L high Chlor emre 110 (H) 98 - 107 mmol/ L 10/09 2:48 AM [facility] MAXIMILIAN Not Available Not Available 10/09/2024 11:25:25 10/10/19 25 10/09/2024 Basic metab olic 1999 panel - Serum or Plasm a carbon dioxide, total [moles/volum e] in serum or plasma 21 mmol/ L low: 22mmol /Lhigh : 29mmol /L low CO2 21 (L) 22 - 29 mmol/ L 10/09 2:48 AM B[employer] M[employer] OPER[employer] P[employer] [facility] MAXIMILIAN Not Available Not Available 10/09/2024 11:25:25 10/10/19 25 10/09/2024 Basic metab olic 1999 panel - Serum or Plasm a glucose [mass/volume ] in serum or plasma 104 mg/dL low: 70mg/d Lhigh: 99mg/d L high Gluco se 104 (H) 70 - 99 mg/dL 10/09 2:48 AM B[employer] M[employer] OPER[employer] PLAST[employer] [facility] MAXIMILIAN Not Available Not Available 10/09/2024 11:25:25 10/10/19 25 10/09/2024 Basic metab olic 1999 panel - Serum or Plasm a calcium [moles/volum e] in serum or plasma 8.4 mg/dL low: 8.4mg/ dLhigh : 10.2mg /dL Calci um 8.4 8.4 - 10.2 mg/dL 10/09 2:48 AM B[employer] M[employer] OPERATOR [employer] PLASTIC [facility] MAXIMILIAN Not Available Not Available 10/09/2024 11:25:25 10/10/19 25 10/09/2024 Basic metab olic 2000 panel - Serum or Plasm a anion gap 9 low: 6high: 16 Anion Gap 9 6 - 16 10/09 2:48 AM B[employer] M[employer] OPER[employer] PLASTIC [facility] MAXIMILIAN Not Available Not Available 10/09/2024 11:25:25 10/10/19 25 10/09/2024 Basic metab olic 2000 panel - Serum or Plasm a urea nitrogen/cre atinine [mass ratio] in serum or plasma 15 low: 7high: 23 BUN/C reati nine Ratio 15 7 - 23 10/09 2:48 AM B[employer] M[employer] OPER[employer] PLASTIC [facility] MAXIMILIAN Not Available Not Available 10/09/2024 11:25:25 10/10/19 25 10/09/2024 Basic metab olic 2000 panel - Serum or Plasm a osmolality calculated 289 text: 275 - 295 mOsm/k g Osmol yudelka Lewis lated 289 275 - 295 mOsm/ kg 10/09 2:48 AM B[employer] M[employer] OPERATOR FOR PLASTIC [facility] MAXIMILIAN Not Available Not Available 10/09/2024 11:25:25 10/10/1910/09/2024 Basic metab olic 2000 panel - Serum or Plasm a glomerular filtration rate/1.73 sq M.predicted [volume rate/area] in serum, plasma or blood by creatinine-b ased formula (CKD-epi 2020) text: >=90 mL/min /1.73 m2 eGFR by CKD-E PI >90 >=90 mL/mi n/1.7 3 m2 10/09 2:48 AM B[employer] M[employer] OPERATOR [employer] [facility] MAXIMILIAN Not Available Not Available 10/09/2024 11:25:25 10/10/1910/09/2024 Basic metab olic 2000 panel - Serum or Plasm a interpretati on and review of laboratory results Abnorm al Not Available Not Available 11:25:25 10/12/1910/11/2024 CBC W Auto Diffe renti al panel - Blood leukocytes [#/volume] in blood by automated count 6.67 text: 4.00 - 12.00 10(3)/ mcL WBC 6.67 4.00 - 12.00 10(3) /mcL 10/11 5:50 PM [facility] Not Available Not Available 10/14/2024 11:16:08 10/12/1910/11/2024 CBC W Auto Diffe renti al panel - Blood erythrocytes [#/volume] in blood by automated count 4.53 text: 3.80 - 5.30 10(6)/ mcL RBC 4.53 3.80 - 5.30 10(6) /mcL 10/11 5:50 PM CDT [facility] Not Available Not Available 10/14/2024 11:16:08 10/12/19 25 10/11/2024 CBC W Auto Diffe renti al panel - Blood hemoglobin [mass/volume ] in blood 11 g/dL low: 12g/dL high: 15.8g/ dL low HEMOG LOBIN (HGB) 11.0 (L) 12.0 - 15.8 g/dL 10/11 5:50 PM [facility] Not Available Not Available 10/14/2024 11:16:08 10/12/19 25 10/11/2024 CBC W Auto Diffe renti al panel - Blood hematocrit [volume fraction] of blood by automated count 35.3 % low: 36%hig h: 47% low HEMAT OCRIT (HCT) 35.3 (L) 36.0 - 47.0 % 10/11 5:50 PM CDT [facility] Not Available Not Available 10/14/2024 11:16:08 10/12/1910/11/2024 CBC W Auto Diffe renti al panel - Blood MCV [entitic volume] by automated count 77.9 fL low: 82fLhi gh: 96fL low MCV 77.9 (L) 82.0 - 96.0 fL 10/11 5:50 PM CDT [facility] Not Available Not Available 10/14/2024 11:16:08 10/12/1910/11/2024 CBC W Auto Diffe renti al panel - Blood MCH [entitic mass] by automated count 24.3 pg low: 26pghi gh: 34pg low MCH 24.3 (L) 26.0 - 34.0 pg 10/11 5:50 PM CDT [facility] Not Available Not Available 10/14/2024 11:16:08 10/12/19 25 10/11/2024 CBC W Auto Diffe renti al panel - Blood MCHC [mass/volume ] by automated count 31.2 g/dL low: 31g/dL high: 36g/dL MCHC 31.2 31.0 - 36.0 g/dL 10/11 5:50 PM [facility] Not Available Not Available 10/14/2024 11:16:08 10/12/19 25 10/11/2024 CBC W Auto Diffe renti al panel - Blood platelets [#/volume] in blood 270 text: 140 - 440 10(3)/ mcL PLATE LET COUNT 270 140 - 440 10(3) /mcL 10/11 5:50 PM CDT [facility] Not Available Not Available 10/14/2024 11:16:08 10/12/19 25 10/11/2024 CBC W Auto Diffe renti al panel - Blood erythrocyte distribution width [ratio] by automated count 19.5 % low: 11.8%h igh: 15.5% high RDW 19.5 (H) 11.8 - 15.5 % 10/11 5:50 PM CDT [facility] Not Available Not Available 10/14/2024 11:16:08 10/12/19 25 10/11/2024 CBC W Auto Diffe renti al panel - Blood platelet mean volume [entitic volume] in blood by automated count 10.6 fL low: 9.7fLh igh: 12.4fL MPV 10.6 9.7 - 12.4 fL 10/11 5:50 PM CDT [facility] Not Available Not Available 10/14/2024 11:16:08 10/12/19 25 10/11/2024 CBC W Auto Diffe renti al panel - Blood neutrophils/ 100 leukocytes in blood by automated count 62.8 % low: 47%hig h: 73% NEUTR OPHIL S 62.8 47.0 - 73.0 % 10/11 5:50 PM CDT [facility] Not Available Not Available 10/14/2024 11:16:08 10/12/19 25 10/11/2024 CBC W Auto Diffe renti al panel - Blood lymphocytes/ 100 leukocytes in blood by automated count 24.1 % low: 18%hig h: 42% LYMPH OCYTE S 24.1 18.0 - 42.0 % 10/11 5:50 PM CDT [facility] Not Available Not Available 10/14/2024 11:16:08 10/12/19 25 10/11/2024 CBC W Auto Diffe renti al panel - Blood monocytes/10 0 leukocytes in blood by automated count 8.7 % low: 4%high : 12% MONOC YTES 8.7 4.0 - 12.0 % 10/11 5:50 PM CDT [facility] Not Available Not Available 10/14/2024 11:16:08 10/12/19 25 10/11/2024 CBC W Auto Diffe renti al panel - Blood eosinophils/ 100 leukocytes in blood by automated count 4 % low: 0%high : 5% EOSIN OPHIL S 4.0 0.0 - 5.0 % 10/11 5:50 PM CD[facility] Not Available Not Available 10/14/2024 11:16:08 10/12/19 25 10/11/2024 CBC W Auto Diffe renti al panel - Blood basophils/10 0 leukocytes in blood by automated count 0.4 % low: 0%high : 1% BASOP HILS 0.4 0.0 - 1.0 % 10/11 5:50 PM CDT [facility] Not Available Not Available 10/14/2024 11:16:08 10/12/19 25 10/11/2024 CBC W Auto Diffe renti al panel - Blood neutrophils [#/volume] in blood by automated count 4.18 text: 1.60 - 7.70 10(3)/ mcL [facility] NEUTR OPHIL S 4.18 1.60 - 7.70 10(3) /mcL 10/11 5:50 PM CDT [facility] Not Available Not Available 10/14/2024 11:16:08 10/12/19 25 10/11/2024 CBC W Auto Diffe renti al panel - Blood lymphocytes [#/volume] in blood by automated count 1.61 text: 1.30 - 3.20 10(3)/ mcL [facility] LYMPH OCYTE S 1.61 1.30 - 3.20 10(3) /mcL 10/11 5:50 PM CDT [facility] Not Available Not Available 10/14/2024 11:16:08 10/12/19 25 10/11/2024 CBC W Auto Diffe renti al panel - Blood monocytes [#/volume] in blood by automated count 0.58 text: 0.20 - 1.00 10(3)/ mcL [facility] MONOC YTES 0.58 0.20 - 1.00 10(3) /mcL 10/11 5:50 PM CDT [facility] Not Available Not Available 10/14/2024 11:16:08 10/12/19 25 10/11/2024 CBC W Auto Diffe renti al panel - Blood eosinophils [#/volume] in blood by automated count 0.27 text: 0.00 - 0.40 10(3)/ mcL [facility] EOSIN OPHIL 0.27 0.00 - 0.40 10(3) /mcL 10/11 5:50 PM CDT [facility] Not Available Not Available 10/14/2024 11:16:08 10/12/19 25 10/11/2024 CBC W Auto Diffe renti al panel - Blood basophils [#/volume] in blood by automated count 0.03 text: 0.00 - 0.10 10(3)/ mcL [facility] BASOP HILS 0.03 0.00 - 0.10 10(3) /mcL 10/11 5:50 PM CDT [facility] Not Available Not Available 10/14/2024 11:16:08 10/12/19 25 10/11/2024 CBC W Auto Diffe renti al panel - Blood nucleated erythrocytes /100 leukocytes [ratio] in blood 0 NRBC PER 100 WBC 0 10/11 5:50 PM CDT [facility] Not Available Not Available 10/14/2024 11:16:08 10/12/19 25 10/11/2024 CBC W Auto Diffe renti al panel - 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 Yes RESUL TS ARE CONSI STENT WITH PERIP HERAL SMEAR REVIE W Yes 10/11 5:50 PM CDT [facility] Not Available Not Available 10/14/2024 11:16:08 10/12/19 25 10/11/2024 CBC W Auto Diffe renti al panel - Blood erythrocytes [morphology] in blood by automated count Yes RBC MORPH OLOGY CONSI STENT WITH INDIC ES Yes 10/11 5:50 PM CDT [facility] Not Available Not Available 10/14/2024 11:16:08 10/12/19 25 10/11/2024 CBC W Auto Diffe renti al panel - Blood poikilocytos is [presence] in blood by light microscopy 1+ POIKI LOCYT OSIS 1+ 10/11 5:50 PM CDT [facility] Not Available Not Available 10/14/2024 11:16:08 10/12/19 25 10/11/2024 CBC W Auto Diffe renti al panel - Blood ovalocytes [presence] in blood by light microscopy Presen t OVALO CYTES Prese nt 10/11 5:50 PM CDT [facility] Not Available Not Available 10/14/2024 11:16:08 10/12/19 25 10/11/2024 CBC W Auto Diffe renti al panel - Blood polychromasi a [presence] in blood by light microscopy 1+ POLYC HROMA JUAN 1+ 10/11 5:50 PM CDT [facility] [employer] [facility] Not Available Not Available 10/14/2024 11:16:08 10/12/19 25 10/11/2024 CBC W Auto Diffe renti al panel - Blood interpretati on and review of laboratory results Abnorm al Not Available Not Available 11:16:08 10/12/19 25 10/11/2024 Lipas e [Enzy matic activ ity/v olume ] in Serum or Plasm a lipase [enzymatic activity/vol ume] in serum or plasma 19 U/L low: 8U/Lhi gh: 78U/L LIPAS E 19 8 - 78 U/L 10/11 5:47 PM CDT [facility] Not Available Not Available 10/14/2024 11:16:07 10/12/19 25 10/11/2024 Lipas e [Enzy matic activ ity/v olume ] in Serum or Plasm a interpretati on and review of laboratory results Normal Not Available Not Available 10/03 11:16:07 10/12/19 25 10/11/2024 Compr ehens larry metab olic 1999 panel - Serum or Plasm a sodium [moles/volum e] in serum or plasma 141 mmol/ L low: 136mmo l/Lhig h: 145mmo l/L SODIU M 141 136 - 145 mmol/ L 10/11 5:47 PM CDT [facility] [place] [facility] [employer] Not Available Not Available 10/14/2024 11:16:07 10/12/19 25 10/11/2024 Compr ehens larry metab olic 2000 panel - Serum or Plasm a potassium [moles/volum e] in serum or plasma 4.7 mmol/ L low: 3.5mmo l/Lhig h: 5.1mmo l/L POTAS SIUM 4.7 3.5 - 5.1 mmol/ L 10/11 5:47 PM CDT [facility] [place] [employer] Not Available Not Available 10/14/2024 11:16:07 10/12/19 25 10/11/2024 Compr ehens lrary metab olic 1999 panel - Serum or Plasm a chloride [moles/volum e] in serum or plasma 110 mmol/ L low: 98mmol /Lhigh : 107mmo l/L high [facility]LOR EMRE 110 (H) 98 - 107 mmol/ L 10/11 5:47 PM CDT [facility] Not Available Not Available 10/14/2024 11:16:07 10/12/19 25 10/11/2024 Compr ehens larry metab olic 1999 panel - Serum or Plasm a carbon dioxide, total [moles/volum e] in serum or plasma 19 mmol/ L low: 22mmol /Lhigh : 30mmol /L low CO2, VENOU S 19 (L) 22 - 30 mmol/ L 10/11 5:47 PM CDT [facility] Not Available Not Available 10/14/2024 11:16:07 10/12/19 25 10/11/2024 Compr ehens larry metab olic 1999 panel - Serum or Plasm a anion gap in serum or plasma 16.7 mmol/ L high: 18mmol /L ANION GAP 16.7 <18.0 mmol/ L 10/11 5:47 PM CDT [facility] Not Available Not Available 10/14/2024 11:16:07 10/12/19 25 10/11/2024 Compr ehens larry metab olic 1999 panel - Serum or Plasm a glucose [mass/volume ] in serum or plasma 88 mg/dL low: 70mg/d Lhigh: 99mg/d L GLUCO SE 88 70 - 99 mg/dL 10/11 5:47 PM CDT [facility] Not Available Not Available 10/14/2024 11:16:07 10/12/19 25 10/11/2024 Compr ehens larry metab olic 1999 panel - Serum or Plasm a urea nitrogen [mass/volume ] in serum or plasma 13 mg/dL low: 5mg/dL high: 18mg/d L BUN 13 5 - 18 mg/dL 10/11 5:47 PM CDT [facility] Not Available Not Available 10/14/2024 11:16:07 10/12/19 25 10/11/2024 Compr ehens larry metab olic 1999 panel - Serum or Plasm a creatinine [mass/volume ] in serum or plasma 0.69 mg/dL low: 0.6mg/ dLhigh : 1mg/dL CREAT ININE , BLOOD 0.69 0.60 - 1.00 mg/dL 10/11 5:47 PM CDT [facility] Not Available Not Available 10/14/2024 11:16:07 10/12/19 25 10/11/2024 Compr ehens larry metab olic 2000 panel - Serum or Plasm a urea nitrogen/cre atinine [mass ratio] in serum or plasma 19 text: 12 - 20 ratio BUN/C REATI NINE RATIO 19 12 - 20 ratio 10/11 5:47 PM CDT [facility] [employer] [facility] Not Available Not Available 10/14/2024 11:16:07 10/12/19 25 10/11/2024 Compr ehens larry metab olic 1999 panel - Serum or Plasm a protein [mass/volume ] in serum or plasma 6.9 g/dL low: 6g/dLh igh: 8g/dL TOTAL PROTE IN 6.9 6.0 - 8.0 g/dL 10/11 5:47 PM CDT [facility] [place] [employer] [facility] Not Available Not Available 10/14/2024 11:16:07 10/12/19 25 10/11/2024 Compr Kivedaens larry metab olic 1999 panel - Serum or Plasm a albumin [mass/volume ] in serum or plasma 4 g/dL low: 3.5g/d Lhigh: 5g/dL ALBUM IN 4.0 3.5 - 5.0 g/dL 10/11 5:47 PM CDT [facility] [employer] [facility] Not Available Not Available 10/14/2024 11:16:07 10/12/19 25 10/11/2024 Compr ehens larry metab olic 2000 panel - Serum or Plasm a albumin/glob ulin [mass ratio] in serum or plasma 1.4 low: 1high: 2.2 A/G RATIO 1.4 1.0 - 2.2 10/11 5:47 PM CDT [facility] [employer] [facility] Not Available Not Available 10/14/2024 11:16:07 10/12/19 25 10/11/2024 Compr ehens larry metab olic 1999 panel - Serum or Plasm a calcium [mass/volume ] in serum or plasma 9 mg/dL low: 8.7mg/ dLhigh : 10.5mg /dL CALCI UM 9.0 8.7 - 10.5 mg/dL 10/11 5:47 PM CDT [facility] [place] [employer] [facility] Not Available Not Available 10/14/2024 11:16:07 10/12/19 25 10/11/2024 Compr ehens larry metab olic 1999 panel - Serum or Plasm a bilirubin.to maximilian [mass/volume ] in serum or plasma 0.1 mg/dL low: 0.2mg/ dLhigh : 1.2mg/ dL low T BILI 0.1 (L) 0.2 - 1.2 mg/dL 10/11 5:47 PM CDT [facility] [employer] LAB Not Available Not Available 10/14/2024 11:16:07 10/12/19 25 10/11/2024 Compr Kivedaens larry metab olic 1999 panel - Serum or Plasm a aspartate aminotransfe rase [enzymatic activity/vol ume] in serum or plasma 36 U/L high: 43U/L SGOT (AST) 36 <43 U/L 10/11 5:47 PM CDT [facility] [employer] [facility] Not Available Not Available 10/14/2024 11:16:07 10/12/19 25 10/11/2024 Compr Kivedaens larry metab olic 2000 panel - Serum or Plasm a alanine aminotransfe rase [enzymatic activity/vol ume] in serum or plasma 22 U/L high: 56U/L SGPT (ALT) 22 <56 U/L 10/11 5:47 PM CDT [facility] [employer] [facility] Not Available Not Available 10/14/2024 11:16:07 10/12/19 25 10/11/2024 Compr Kivedaens larry metab olic 1999 panel - Serum or Plasm a alkaline phosphatase [enzymatic activity/vol ume] in serum or plasma 97 U/L low: 40U/Lh igh: 150U/L ALKAL INE PHOSP HATAS E 97 40 - 150 U/L 10/11 5:47 PM CDT [facility] [employer] [facility] Not Available Not Available 10/14/2024 11:16:07 10/12/19 25 10/11/2024 Compr Kivedaens larry metab olic 2000 panel - Serum or Plasm a glomerular filtration rate/1.73 sq M.predicted among non-blacks [volume rate/area] in serum, plasma or blood by creatinine-b ased formula (MDRD) low: 60 GFR, ESTIM ATED >60 >=60 10/11 5:47 PM CDT [facility] [employer] [facility] Not Available Not Available 10/14/2024 11:16:07 10/12/19 25 10/11/2024 Compr ehens larry metab olic 2000 panel - Serum or Plasm a glomerular filtration rate/1.73 sq M.predicted among blacks [volume rate/area] in serum, plasma or blood by creatinine-b ased formula (MDRD) low: 60 GFR, EST. AFRIC AN >60 >=60 10/11 5:47 PM CDT [facility] [employer] [facility] [employer] LAB Not Available Not Available 10/14/2024 11:16:07 10/12/19 25 10/11/2024 Compr ehens larry metab olic 2000 panel - Serum or Plasm a glomerular filtration rate/1.73 sq M.predicted among non-blacks [volume rate/area] in serum, plasma or blood by creatinine-b ased formula (MDRD) low: 60 GFR, EST. NONAF RICAN >60 >=60 10/11 5:47 PM CDT [facility] [employer] [facility] [employer] LAB Not Available Not Available 10/14/2024 11:16:07 10/12/19 25 10/11/2024 Compr ehens larry metab olic 2000 panel - Serum or Plasm a interpretati on and review of laboratory results Abnorm al Not Available Not Available 11:16:07 10/15/19 25 10/14/2024 CBC W Auto Diffe renti al panel - Blood leukocytes [#/volume] in blood by automated count 5.28 text: 4.00 - 12.00 10(3)/ mcL WBC 5.28 4.00 - 12.00 10(3) /mcL 10/14 7:23 PM CDT [facility] [employer] [facility] Not Available Not Available 10/15/2024 14:36:11 10/15/19 25 10/14/2024 CBC W Auto Diffe renti al panel - Blood erythrocytes [#/volume] in blood by automated count 4.12 text: 3.80 - 5.30 10(6)/ mcL RBC 4.12 3.80 - 5.30 10(6) /mcL 10/14 7:23 PM CDT [facility] Not Available Not Available 10/15/2024 14:36:11 10/15/19 25 10/14/2024 CBC W Auto Diffe renti al panel - Blood hemoglobin [mass/volume ] in blood 10.1 g/dL low: 12g/dL high: 15.8g/ dL low HEMOG LOBIN (HGB) 10.1 (L) 12.0 - 15.8 g/dL 10/14 7:23 PM CDT [facility] [place] [facility] Not Available Not Available 10/15/2024 14:36:11 10/15/19 25 10/14/2024 CBC W Auto Diffe renti al panel - Blood hematocrit [volume fraction] of blood by automated count 32.2 % low: 36%hig h: 47% low HEMAT OCRIT (HCT) 32.2 (L) 36.0 - 47.0 % 10/14 7:23 PM CDT [facility] Not Available Not Available 10/15/2024 14:36:11 10/15/19 25 10/14/2024 CBC W Auto Diffe renti al panel - Blood MCV [entitic volume] by automated count 78.2 fL low: 82fLhi gh: 96fL low MCV 78.2 (L) 82.0 - 96.0 fL 10/14 7:23 PM CDT [facility] Not Available Not Available 10/15/2024 14:36:11 10/15/19 25 10/14/2024 CBC W Auto Diffe renti al panel - Blood MCH [entitic mass] by automated count 24.5 pg low: 26pghi gh: 34pg low MCH 24.5 (L) 26.0 - 34.0 pg 10/14 7:23 PM CDT [facility] Not Available Not Available 10/15/2024 14:36:11 10/15/19 25 10/14/2024 CBC W Auto Diffe renti al panel - Blood MCHC [mass/volume ] by automated count 31.4 g/dL low: 31g/dL high: 36g/dL MCHC 31.4 31.0 - 36.0 g/dL 10/14 7:23 PM CDT [facility] Not Available Not Available 10/15/2024 14:36:11 10/15/19 25 10/14/2024 CBC W Auto Diffe renti al panel - Blood platelets [#/volume] in blood 374 text: 140 - 440 10(3)/ mcL PLATE LET COUNT 374 140 - 440 10(3) /mcL 10/14 7:23 PM CDT [facility] Not Available Not Available 10/15/2024 14:36:11 10/15/19 25 10/14/2024 CBC W Auto Diffe renti al panel - Blood erythrocyte distribution width [ratio] by automated count 19.4 % low: 11.8%h igh: 15.5% high RDW 19.4 (H) 11.8 - 15.5 % 10/14 7:23 PM CDT [facility] Not Available Not Available 10/15/2024 14:36:11 10/15/19 25 10/14/2024 CBC W Auto Diffe renti al panel - Blood platelet mean volume [entitic volume] in blood by automated count 9.6 fL low: 9.7fLh igh: 12.4fL low MPV 9.6 (L) 9.7 - 12.4 fL 10/14 7:23 PM CDT [facility] Not Available Not Available 10/15/2024 14:36:11 10/15/19 25 10/14/2024 CBC W Auto Diffe renti al panel - Blood neutrophils/ 100 leukocytes in blood by automated count 58.7 % low: 47%hig h: 73% NEUTR OPHIL S 58.7 47.0 - 73.0 % 10/14 7:23 PM CDT [facility] Not Available Not Available 10/15/2024 14:36:11 10/15/19 25 10/14/2024 CBC W Auto Diffe renti al panel - Blood lymphocytes/ 100 leukocytes in blood by automated count 31.6 % low: 18%hig h: 42% LYMPH OCYTE S 31.6 18.0 - 42.0 % 10/14 7:23 PM CDT [facility] Not Available Not Available 10/15/2024 14:36:11 10/15/19 25 10/14/2024 CBC W Auto Diffe renti al panel - Blood monocytes/10 0 leukocytes in blood by automated count 5.7 % low: 4%high : 12% MONOC YTES 5.7 4.0 - 12.0 % 10/14 7:23 PM CDT [facility] Not Available Not Available 10/15/2024 14:36:11 10/15/19 25 10/14/2024 CBC W Auto Diffe renti al panel - Blood eosinophils/ 100 leukocytes in blood by automated count 3.2 % low: 0%high : 5% EOSIN OPHIL S 3.2 0.0 - 5.0 % 10/14 7:23 PM CDT [facility] Not Available Not Available 10/15/2024 14:36:11 10/15/19 25 10/14/2024 CBC W Auto Diffe renti al panel - Blood basophils/10 0 leukocytes in blood by automated count 0.8 % low: 0%high : 1% BASOP HILS 0.8 0.0 - 1.0 % 10/14 7:23 PM CDT [facility] Not Available Not Available 10/15/2024 14:36:11 10/15/19 25 10/14/2024 CBC W Auto Diffe renti al panel - Blood neutrophils [#/volume] in blood by automated count 3.1 text: 1.60 - 7.70 10(3)/ mcL ABSOL [place] [facility] NEUTR OPHIL S 3.10 1.60 - 7.70 10(3) /mcL 10/14 7:23 PM CDT [facility] [place] [facility] Not Available Not Available 10/15/2024 14:36:11 10/15/19 25 10/14/2024 CBC W Auto Diffe renti al panel - Blood lymphocytes [#/volume] in blood by automated count 1.67 text: 1.30 - 3.20 10(3)/ mcL [facility]OL [place] [facility] LYMPH OCYTE S 1.67 1.30 - 3.20 10(3) /mcL 10/14 7:23 PM CDT [facility] [place] [facility] Not Available Not Available 10/15/2024 14:36:11 10/15/19 25 10/14/2024 CBC W Auto Diffe renti al panel - Blood monocytes [#/volume] in blood by automated count 0.3 text: 0.20 - 1.00 10(3)/ mcL [facility] [place] [facility] MONOC YTES 0.30 0.20 - 1.00 10(3) /mcL 10/14 7:23 PM CDT [facility] [place] [facility] Not Available Not Available 10/15/2024 14:36:11 10/15/19 25 10/14/2024 CBC W Auto Diffe renti al panel - Blood eosinophils [#/volume] in blood by automated count 0.17 text: 0.00 - 0.40 10(3)/ mcL [facility] [place] [facility] EOSIN OPHIL 0.17 0.00 - 0.40 10(3) /mcL 10/14 7:23 PM CDT [facility] [place] [facility] Not Available Not Available 10/15/2024 14:36:11 10/15/19 25 10/14/2024 CBC W Auto Diffe renti al panel - Blood basophils [#/volume] in blood by automated count 0.04 text: 0.00 - 0.10 10(3)/ mcL [facility]OL [place] BASOP HILS 0.04 0.00 - 0.10 10(3) /mcL 10/14 7:23 PM CDT [facility] [place] [facility] Not Available Not Available 10/15/2024 14:36:11 10/15/19 25 10/14/2024 CBC W Auto Diffe renti al panel - Blood nucleated erythrocytes /100 leukocytes [ratio] in blood 0 NRBC PER 100 WBC 0 10/14 7:[address] Not Available Not Available 10/15/2024 14:36:11 10/15/19 25 10/14/2024 CBC W Auto Diffe renti al panel - Blood interpretati on and review of laboratory results Abnorm al Not Available Not Available 14:36:11 10/15/19 25 10/14/2024 Lipas e [Enzy matic activ ity/v olume ] in Serum or Plasm a lipase [enzymatic activity/vol ume] in serum or plasma 24 U/L low: 8U/Lhi gh: 78U/L LIPAS E 24 8 - 78 U/L 10/14 7:[address] Not Available Not Available 10/15/2024 14:36:11 10/15/19 25 10/14/2024 Lipas e [Enzy matic activ ity/v olume ] in Serum or Plasm a interpretati on and review of laboratory results Normal Not Available Not Available 10/03 14:36:11 10/15/19 25 10/14/2024 Compr ehens larry metab olic 1999 panel - Serum or Plasm a sodium [moles/volum e] in serum or plasma 140 mmol/ L low: 136mmo l/Lhig h: 145mmo l/L SODIU M 140 136 - 145 mmol/ L 10/14 7:[address] Not Available Not Available 10/15/2024 14:36:10 10/15/19 25 10/14/2024 Compr ehens larry metab olic 1999 panel - Serum or Plasm a potassium [moles/volum e] in serum or plasma 4.6 mmol/ L low: 3.5mmo l/Lhig h: 5.1mmo l/L POTAS SIUM 4.6 3.5 - 5.1 mmol/ L 10/14 7:[address] Not Available Not Available 10/15/2024 14:36:10 10/15/19 25 10/14/2024 Compr ehens larry metab olic 1999 panel - Serum or Plasm a chloride [moles/volum e] in serum or plasma 109 mmol/ L low: 98mmol /Lhigh : 107mmo l/L high CHLOR EMRE 109 (H) 98 - 107 mmol/ L 10/14 7:42 PM CD[facility] [employer] [facility] Not Available Not Available 10/15/2024 14:36:10 10/15/19 25 10/14/2024 Compr ehens larry metab olic 1999 panel - Serum or Plasm a carbon dioxide, total [moles/volum e] in serum or plasma 23 mmol/ L low: 22mmol /Lhigh : 30mmol /L CO2, VENOU S 23 22 - 30 mmol/ L 10/14 7:42 PM CDT [facility] [employer] [facility] Not Available Not Available 10/15/2024 14:36:10 10/15/19 25 10/14/2024 Compr ehens larry metab olic 1999 panel - Serum or Plasm a anion gap in serum or plasma 12.6 mmol/ L high: 18mmol /L ANION GAP 12.6 <18.0 mmol/ L 10/14 7:42 PM CDT [facility] [employer] [facility] Not Available Not Available 10/15/2024 14:36:10 10/15/19 25 10/14/2024 Compr ehens larry metab olic 1999 panel - Serum or Plasm a glucose [mass/volume ] in serum or plasma 81 mg/dL low: 70mg/d Lhigh: 99mg/d L GLUCO SE 81 70 - 99 mg/dL 10/14 7:42 PM CDT [facility] [employer] [facility] Not Available Not Available 10/15/2024 14:36:10 10/15/19 25 10/14/2024 Compr ehens larry metab olic 2000 panel - Serum or Plasm a urea nitrogen [mass/volume ] in serum or plasma 15 mg/dL low: 5mg/dL high: 18mg/d L BUN 15 5 - 18 mg/dL 10/14 7:42 PM CDT [facility] [place] [facility] Not Available Not Available 10/15/2024 14:36:10 10/15/19 25 10/14/2024 Compr Kivedaens larry metab olic 1999 panel - Serum or Plasm a creatinine [mass/volume ] in serum or plasma 0.73 mg/dL low: 0.6mg/ dLhigh : 1mg/dL CREAT ININE , BLOOD 0.73 0.60 - 1.00 mg/dL 10/14 7:42 PM CDT [facility] Not Available Not Available 10/15/2024 14:36:10 10/15/19 25 10/14/2024 Compr Kivedaens larry metab olic 1999 panel - Serum or Plasm a urea nitrogen/cre atinine [mass ratio] in serum or plasma 21 text: 12 - 20 ratio high BUN/C REATI NINE RATIO 21 (H) 12 - 20 ratio 10/14 7:42 PM CDT [facility] Not Available Not Available 10/15/2024 14:36:10 10/15/19 25 10/14/2024 Compr Kivedaens larry metab olic 1999 panel - Serum or Plasm a protein [mass/volume ] in serum or plasma 6.4 g/dL low: 6g/dLh igh: 8g/dL TOTAL PROTE IN 6.4 6.0 - 8.0 g/dL 10/14 7:42 PM CDT [facility] [place] [facility] Not Available Not Available 10/15/2024 14:36:10 10/15/19 25 10/14/2024 Compr Kivedaens larry metab olic 1999 panel - Serum or Plasm a albumin [mass/volume ] in serum or plasma 3.9 g/dL low: 3.5g/d Lhigh: 5g/dL ALBUM IN 3.9 3.5 - 5.0 g/dL 10/14 7:42 PM CDT [facility] Not Available Not Available 10/15/2024 14:36:10 10/15/19 25 10/14/2024 Compr Exajoule larry [employer] [facility] 1999 panel - Serum or Plasm a albumin/glob ulin [mass ratio] in serum or plasma 1.6 low: 1high: 2.2 A/G RATIO 1.6 1.0 - 2.2 10/14 7:42 PM CDT [facility] [employer] LAB Not Available Not Available 10/15/2024 14:36:10 10/15/19 25 10/14/2024 [facility]ens larry metab [facility] 1999 panel - Serum or Plasm a calcium [mass/volume ] in serum or plasma 8.9 mg/dL low: 8.7mg/ dLhigh : 10.5mg /dL CALCI UM 8.9 8.7 - 10.5 mg/dL 10/14 7:42 PM CDT [facility] [place] [employer] [facility] Not Available Not Available 10/15/2024 14:36:10 10/15/1910/14/2024 [facility]ens larry metab [facility] 1999 panel - Serum or Plasm a bilirubin.to maximilian [mass/volume ] in serum or plasma 0.1 mg/dL low: 0.2mg/ dLhigh : 1.2mg/ dL low T BILI 0.1 (L) 0.2 - 1.2 mg/dL 10/14 7:42 PM CDT [facility] [employer] [facility] Not Available Not Available 10/15/2024 14:36:10 10/15/19 25 10/14/2024 [facility]ens larry metab olic 1999 panel - Serum or Plasm a aspartate aminotransfe rase [enzymatic activity/vol ume] in serum or plasma 25 U/L high: 43U/L SGOT (AST) 25 <43 U/L 10/14 7:42 PM CDT [facility] [employer] [facility] Not Available Not Available 10/15/2024 14:36:10 10/15/19 25 10/14/2024 Compr Kivedaens larry metab olic 1999 panel - Serum or Plasm a alanine aminotransfe rase [enzymatic activity/vol ume] in serum or plasma 25 U/L high: 56U/L SGPT (ALT) 25 <56 U/L 10/14 7:42 PM CDT [facility] [employer] [facility] Not Available Not Available 10/15/2024 14:36:10 10/15/19 25 10/14/2024 Compr Kivedaens larry metab olic 2000 panel - Serum or Plasm a alkaline phosphatase [enzymatic activity/vol ume] in serum or plasma 101 U/L low: 40U/Lh igh: 150U/L ALKAL INE PHOSP HATAS E 101 40 - 150 U/L 10/14 7:42 PM CDT [facility] Not Available Not Available 10/15/2024 14:36:10 10/15/19 25 10/14/2024 Compr Kivedaens larry [employer] olic 1999 panel - Serum or Plasm a glomerular filtration rate/1.73 sq M.predicted among non-blacks [volume rate/area] in serum, plasma or blood by creatinine-b ased formula (MDRD) low: 60 GFR, ESTIM ATED >60 >=60 10/14 7:42 PM CDT [facility] Not Available Not Available 10/15/2024 14:36:10 10/15/19 25 10/14/2024 Compr Kivedaens larry [employer] olic 1999 panel - Serum or Plasm a glomerular filtration rate/1.73 sq M.predicted among blacks [volume rate/area] in serum, plasma or blood by creatinine-b ased formula (MDRD) low: 60 GFR, EST. AFRIC AN >60 >=60 10/14 7:42 PM CDT [facility] [employer] [facility] Not Available Not Available 10/15/2024 14:36:10 10/15/19 25 10/14/2024 Compr ehens larry metab olic 2000 panel - Serum or Plasm a glomerular filtration rate/1.73 sq M.predicted among non-blacks [volume rate/area] in serum, plasma or blood by creatinine-b ased formula (MDRD) low: 60 GFR, EST. NONAF RICAN >60 >=60 10/14 7:42 PM CDT [facility] [employer] [facility] Not Available Not Available 10/15/2024 14:36:10 10/15/19 25 10/14/2024 Compr ehens larry metab olic 2000 panel - Serum or Plasm a interpretati on and review of laboratory results Abnorm al Not Available Not Available 14:36:10 10/25/19 25 10/24/2024 CBC W Auto Diffe renti al panel - Blood leukocytes [#/volume] in blood by automated count 6.78 text: 4.00 - 12.00 10(3)/ mcL WBC 6.78 4.00 - 12.00 10(3) /mcL 10/24 4:03 PM CDT [facility] Not Available Not Available 10/29/2024 17:21:27 10/25/19 25 10/24/2024 CBC W Auto Diffe renti al panel - Blood erythrocytes [#/volume] in blood by automated count 3.97 text: 3.80 - 5.30 10(6)/ mcL RBC 3.97 3.80 - 5.30 10(6) /mcL 10/24 4:03 PM CDT [facility] Not Available Not Available 10/29/2024 17:21:27 10/25/19 25 10/24/2024 CBC W Auto Diffe renti al panel - Blood hemoglobin [mass/volume ] in blood 9.6 g/dL low: 12g/dL high: 15.8g/ dL low HEMOG LOBIN (HGB) 9.6 (L) 12.0 - 15.8 g/dL 10/24 4:03 PM CDT [facility] Not Available Not Available 10/29/2024 17:21:27 10/25/19 25 10/24/2024 CBC W Auto Diffe renti al panel - Blood hematocrit [volume fraction] of blood by automated count 32.7 % low: 36%hig h: 47% low HEMAT OCRIT (HCT) 32.7 (L) 36.0 - 47.0 % 10/24 4:03 PM CDT [facility] Not Available Not Available 10/29/2024 17:21:27 03/22/20 25 10/24/2024 CBC W Auto Diffe renti al panel - Blood MCV [entitic volume] by automated count 82.4 fL low: 82fLhi gh: 96fL MCV 82.4 82.0 - 96.0 fL 10/24 4:03 PM CDT [facility] Not Available Not Available 10/29/2024 17:21:27 10/25/19 25 10/24/2024 CBC W Auto Diffe renti al panel - Blood MCH [entitic mass] by automated count 24.2 pg low: 26pghi gh: 34pg low MCH 24.2 (L) 26.0 - 34.0 pg 10/24 4:03 PM CDT [facility] Not Available Not Available 10/29/2024 17:21:27 10/25/19 25 10/24/2024 CBC W Auto Diffe renti al panel - Blood MCHC [mass/volume ] by automated count 29.4 g/dL low: 31g/dL high: 36g/dL low MCHC 29.4 (L) 31.0 - 36.0 g/dL 10/24 4:03 PM CDT [facility] Not Available Not Available 10/29/2024 17:21:27 10/25/19 25 10/24/2024 CBC W Auto Diffe renti al panel - Blood platelets [#/volume] in blood 322 text: 140 - 440 10(3)/ mcL PLATE LET COUNT 322 140 - 440 10(3) /mcL 10/24 4:03 PM CDT [facility] Not Available Not Available 10/29/2024 17:21:27 10/25/19 25 10/24/2024 CBC W Auto Diffe renti al panel - Blood erythrocyte distribution width [ratio] by automated count 18.9 % low: 11.8%h igh: 15.5% high RDW 18.9 (H) 11.8 - 15.5 % 10/24 4:03 PM CDT [facility] Not Available Not Available 10/29/2024 17:21:27 10/25/19 25 10/24/2024 CBC W Auto Diffe renti al panel - Blood platelet mean volume [entitic volume] in blood by automated count 10 fL low: 9.7fLh igh: 12.4fL MPV 10.0 9.7 - 12.4 fL 10/24 4:03 PM CDT [facility] Not Available Not Available 10/29/2024 17:21:27 10/25/19 25 10/24/2024 CBC W Auto Diffe renti al panel - Blood neutrophils/ 100 leukocytes in blood by automated count 68.8 % low: 47%hig h: 73% NEUTR OPHIL S 68.8 47.0 - 73.0 % 10/24 4:03 PM CDT [facility] Not Available Not Available 10/29/2024 17:21:27 10/25/19 25 10/24/2024 CBC W Auto Diffe renti al panel - Blood lymphocytes/ 100 leukocytes in blood by automated count 20.9 % low: 18%hig h: 42% LYMPH OCYTE S 20.9 18.0 - 42.0 % 10/24 4:03 PM CDT [facility] Not Available Not Available 10/29/2024 17:21:27 10/25/19 25 10/24/2024 CBC W Auto Diffe renti al panel - Blood monocytes/10 0 leukocytes in blood by automated count 8 % low: 4%high : 12% MONOC YTES 8.0 4.0 - 12.0 % 10/24 4:03 PM CDT [facility] Not Available Not Available 10/29/2024 17:21:27 10/25/19 25 10/24/2024 CBC W Auto Diffe renti al panel - Blood eosinophils/ 100 leukocytes in blood by automated count 1.9 % low: 0%high : 5% EOSIN OPHIL S 1.9 0.0 - 5.0 % 10/24 4:03 PM CDT [facility] Not Available Not Available 10/29/2024 17:21:27 10/25/19 25 10/24/2024 CBC W Auto Diffe renti al panel - Blood basophils/10 0 leukocytes in blood by automated count 0.4 % low: 0%high : 1% BASOP HILS 0.4 0.0 - 1.0 % 10/24 4:03 PM CDT [facility] [employer] [facility] Not Available Not Available 10/29/2024 17:21:27 10/25/19 25 10/24/2024 CBC W Auto Diffe renti al panel - Blood neutrophils [#/volume] in blood by automated count 4.66 text: 1.60 - 7.70 10(3)/ mcL [facility] NEUTR OPHIL S 4.66 1.60 - 7.70 10(3) /mcL 10/24 4:03 PM CDT [facility] [employer] [facility] Not Available Not Available 10/29/2024 17:21:27 10/25/19 25 10/24/2024 CBC W Auto Diffe renti al panel - Blood lymphocytes [#/volume] in blood by automated count 1.42 text: 1.30 - 3.20 10(3)/ mcL [facility] LYMPH OCYTE S 1.42 1.30 - 3.20 10(3) /mcL 10/24 4:03 PM CDT [facility] [employer] [facility] Not Available Not Available 10/29/2024 17:21:27 10/25/19 25 10/24/2024 CBC W Auto Diffe renti al panel - Blood monocytes [#/volume] in blood by automated count 0.54 text: 0.20 - 1.00 10(3)/ mcL [facility] MONOC YTES 0.54 0.20 - 1.00 10(3) /mcL 10/24 4:03 PM CDT [facility] [employer] [facility] Not Available Not Available 10/29/2024 17:21:27 10/25/19 25 10/24/2024 CBC W Auto Diffe renti al panel - Blood eosinophils [#/volume] in blood by automated count 0.13 text: 0.00 - 0.40 10(3)/ mcL [facility] EOSIN OPHIL 0.13 0.00 - 0.40 10(3) /mcL 10/24 4:03 PM CDT [facility] Not Available Not Available 10/29/2024 17:21:27 10/25/19 25 10/24/2024 CBC W Auto Diffe renti al panel - Blood basophils [#/volume] in blood by automated count 0.03 text: 0.00 - 0.10 10(3)/ mcL [facility] BASOP HILS 0.03 0.00 - 0.10 10(3) /mcL 10/24 4:03 PM CDT [facility] Not Available Not Available 10/29/2024 17:21:27 10/25/19 25 10/24/2024 CBC W Auto Diffe renti al panel - Blood nucleated erythrocytes /100 leukocytes [ratio] in blood 0 NRBC PER 100 WBC 0 10/24 4:03 PM CDT [facility] [facility] [employer] [facility] Not Available Not Available 10/29/2024 17:21:27 10/25/19 25 10/24/2024 CBC W Auto Diffe renti al 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 - 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 Yes RESUL TS ARE CONSI STENT WITH PERIP HERAL SMEAR REVIE W Yes 10/24 4:03 PM CDT [facility] Not Available Not Available 10/29/2024 17:21:27 10/25/19 25 10/24/2024 CBC W Auto Diffe renti al panel - Blood erythrocytes [morphology] in blood by automated count Yes RBC MORPH OLOGY CONSI STENT WITH INDIC ES Yes 10/24 4:03 PM CDT [facility] Not Available Not Available 10/29/2024 17:21:27 10/25/19 25 10/24/2024 CBC W Auto Diffe renti al panel - Blood poikilocytos is [presence] in blood by light microscopy 1+ POIKI LOCYT OSIS 1+ 10/24 4:03 PM CDT [facility] Not Available Not Available 10/29/2024 17:21:27 10/25/19 25 10/24/2024 CBC W Auto Diffe renti al panel - Blood ovalocytes [presence] in blood by light microscopy Presen t OVALO CYTES Prese nt 10/24 4:03 PM CDT [facility] Not Available Not Available 10/29/2024 17:21:27 10/25/19 25 10/24/2024 CBC W Auto Diffe renti al panel - Blood polychromasi a [presence] in blood by light microscopy 1+ POLYC HROMA JUAN 1+ 10/24 4:03 PM CDT [facility] [employer] LAB Not Available Not Available 10/29/2024 17:21:27 10/25/19 25 10/24/2024 CBC W Auto Diffe renti al panel - Blood Unknown Analyte Hypoch romia Hypoc hromi a Not Available Not Available 10/29/2024 17:21:27 10/25/19 25 10/24/2024 CBC W Auto Diffe renti al panel - Blood interpretati on and review of laboratory results Abnorm al Not Available Not Available 17:21:27 10/25/19 25 10/24/2024 Valpr oate [Mass /volu me] in Serum or Plasm a valproate [mass/volume ] in serum or plasma text: 50 - 100 mcg/mL low VALPR OIC ACID TOTAL <13 (L) 50 - 100 mcg/m L 10/24 3:56 PM CDT [facility] [employer] [facility] Not Available Not Available 10/29/2024 17:21:27 10/25/19 25 10/24/2024 Valpr oate [Mass /volu me] in Serum or Plasm a interpretati on and review of laboratory results Abnorm al Not Available Not Available 17:21:27 10/25/19 25 10/24/2024 Compr ehens larry metab olic 2000 panel - Serum or Plasm a sodium [moles/volum e] in serum or plasma 140 mmol/ L low: 136mmo l/Lhig h: 145mmo l/L SODIU M 140 136 - 145 mmol/ L 10/24 3:42 PM CDT [facility] Not Available Not Available 10/29/2024 17:21:27 10/25/19 25 10/24/2024 Compr ehens larry metab olic 1999 panel - Serum or Plasm a potassium [moles/volum e] in serum or plasma 4.7 mmol/ L low: 3.5mmo l/Lhig h: 5.1mmo l/L POTAS SIUM 4.7 3.5 - 5.1 mmol/ L 10/24 3:42 PM CDT [facility] Not Available Not Available 10/29/2024 17:21:27 10/25/19 25 10/24/2024 Compr ehens larry metab olic 2000 panel - Serum or Plasm a chloride [moles/volum e] in serum or plasma 112 mmol/ L low: 98mmol /Lhigh : 107mmo l/L high CHLOR EMRE 112 (H) 98 - 107 mmol/ L 10/24 3:42 PM CDT [facility] Not Available Not Available 10/29/2024 17:21:27 10/25/19 25 10/24/2024 Compr ehens larry metab olic 1999 panel - Serum or Plasm a carbon dioxide, total [moles/volum e] in serum or plasma 19 mmol/ L low: 22mmol /Lhigh : 30mmol /L low CO2, VENOU S 19 (L) 22 - 30 mmol/ L 10/24 3:42 PM CDT [facility] Not Available Not Available 10/29/2024 17:21:27 10/25/19 25 10/24/2024 Compr ehens larry metab olic 1999 panel - Serum or Plasm a anion gap in serum or plasma 13.7 mmol/ L high: 18mmol /L ANION GAP 13.7 <18.0 mmol/ L 10/24 3:42 PM CDT [facility] Not Available Not Available 10/29/2024 17:21:27 10/25/19 25 10/24/2024 Compr Kivedaens larry metab olic 1999 panel - Serum or Plasm a glucose [mass/volume ] in serum or plasma 92 mg/dL low: 70mg/d Lhigh: 99mg/d L GLUCO SE 92 70 - 99 mg/dL 10/24 3:42 PM CDT [facility] [employer] R LAB Not Available Not Available 10/29/2024 17:21:27 10/25/19 25 10/24/2024 Compr Kivedaens larry metab olic 1999 panel - Serum or Plasm a urea nitrogen [mass/volume ] in serum or plasma 16 mg/dL low: 5mg/dL high: 18mg/d L BUN 16 5 - 18 mg/dL 10/24 3:42 PM CDT [facility] [employer] LAB Not Available Not Available 10/29/2024 17:21:27 10/25/19 25 10/24/2024 Compr Kivedaens larry metab olic 2000 panel - Serum or Plasm a creatinine [mass/volume ] in serum or plasma 0.7 mg/dL low: 0.6mg/ dLhigh : 1mg/dL CREAT ININE , BLOOD 0.70 0.60 - 1.00 mg/dL 10/24 3:42 PM CDT [facility] [employer] [facility] Not Available Not Available 10/29/2024 17:21:27 10/25/19 25 10/24/2024 Compr Kivedaens larry metab olic 1999 panel - Serum or Plasm a urea nitrogen/cre atinine [mass ratio] in serum or plasma 23 text: 12 - 20 ratio high BUN/C REATI NINE RATIO 23 (H) 12 - 20 ratio 10/24 3:42 PM CDT [facility] [employer] [facility] Not Available Not Available 10/29/2024 17:21:27 10/25/19 25 10/24/2024 Compr Kivedaens larry metab olic 2000 panel - Serum or Plasm a protein [mass/volume ] in serum or plasma 6.2 g/dL low: 6g/dLh igh: 8g/dL TOTAL PROTE IN 6.2 6.0 - 8.0 g/dL 10/24 3:42 PM CDT [facility] Not Available Not Available 10/29/2024 17:21:27 10/25/19 25 10/24/2024 Compr Kivedaens larry metab olic 2000 panel - Serum or Plasm a albumin [mass/volume ] in serum or plasma 3.6 g/dL low: 3.5g/d Lhigh: 5g/dL ALBUM IN 3.6 3.5 - 5.0 g/dL 10/24 3:42 PM CDT [facility] Not Available Not Available 10/29/2024 17:21:27 10/25/19 25 10/24/2024 Compr Kivedaens larry metab olic 1999 panel - Serum or Plasm a albumin/glob ulin [mass ratio] in serum or plasma 1.4 low: 1high: 2.2 A/G RATIO 1.4 1.0 - 2.2 10/24 3:42 PM CDT [facility] Not Available Not Available 10/29/2024 17:21:27 10/25/19 25 10/24/2024 Compr Exajoule larry metab olic 1999 panel - Serum or Plasm a calcium [mass/volume ] in serum or plasma 8.5 mg/dL low: 8.7mg/ dLhigh : 10.5mg /dL low CALCI UM 8.5 (L) 8.7 - 10.5 mg/dL 10/24 3:42 PM CDT [facility] Not Available Not Available 10/29/2024 17:21:27 10/25/19 25 10/24/2024 Compr Exajoule larry [employer] olic 1999 panel - Serum or Plasm a bilirubin.to maximilian [mass/volume ] in serum or plasma 0.1 mg/dL low: 0.2mg/ dLhigh : 1.2mg/ dL low T BILI 0.1 (L) 0.2 - 1.2 mg/dL 10/24 3:42 PM CDT [facility] Not Available Not Available 10/29/2024 17:21:27 10/25/19 25 10/24/2024 Compr ehens larry metab olic 1999 panel - Serum or Plasm a aspartate aminotransfe rase [enzymatic activity/vol ume] in serum or plasma 21 U/L high: 43U/L SGOT (AST) 21 <43 U/L 10/24 3:42 PM CDT [facility] [facility] Not Available Not Available 10/29/2024 17:21:27 10/25/19 25 10/24/2024 Compr ehens larry metab olic 1999 panel - Serum or Plasm a alanine aminotransfe rase [enzymatic activity/vol ume] in serum or plasma 21 U/L high: 56U/L SGPT (ALT) 21 <56 U/L 10/24 3:42 PM CDT [facility] Not Available Not Available 10/29/2024 17:21:27 10/25/19 25 10/24/2024 Compr ehens larry metab olic 1999 panel - Serum or Plasm a alkaline phosphatase [enzymatic activity/vol ume] in serum or plasma 97 U/L low: 40U/Lh igh: 150U/L ALKAL INE PHOSP HATAS E 97 40 - 150 U/L 10/24 3:42 PM CDT [facility] [facility] Not Available Not Available 10/29/2024 17:21:27 10/25/19 25 10/24/2024 Compr ehens larry metab olic 1999 panel - Serum or Plasm a glomerular filtration rate/1.73 sq M.predicted [volume rate/area] in serum, plasma or blood by creatinine-b ased formula (CKD-epi 2020) low: 60 GFR, ESTIM ATED >60 >=60 10/24 3:42 PM CD[facility] [email or web address] [facility] Not Available Not Available 10/29/2024 17:21:27 10/25/19 25 10/24/2024 Compr ehens larry metab olic 2000 panel - Serum or Plasm a glomerular filtration rate/1.73 sq M.predicted among blacks [volume rate/area] in serum, plasma or blood by creatinine-b ased formula (MDRD) low: 60 GFR, EST. AFRIC AN >60 >=60 10/24 3:42 PM CDT [facility] [facility] Not Available Not Available 10/29/2024 17:21:27 10/25/19 25 10/24/2024 Compr ehens larry metab olic 2000 panel - Serum or Plasm a glomerular filtration rate/1.73 sq M.predicted among non-blacks [volume rate/area] in serum, plasma or blood by creatinine-b ased formula (MDRD) low: 60 GFR, EST. NONAF RICAN >60 >=60 10/24 3:42 PM CDT [facility] Not Available Not Available 10/29/2024 17:21:27 10/25/19 25 10/24/2024 Compr ehens larry metab olic 2000 panel - Serum or Plasm a interpretati on and review of laboratory results Abnorm al Not Available Not Available 17:21:27 10/25/19 25 10/24/2024 Gluco se [Mass /volu me] in Blood glucose [mass/volume ] in blood 111 mg/dL low: 70mg/d Lhigh: 99mg/d L high GLUCO SE,BE DSIDE POCT 111 (H) 70 - 99 mg/dL 10/24 2:58 PM CDT [facility] [facility] Not Available Not Available 10/29/2024 17:21:27 10/25/19 25 10/24/2024 Gluco se [Mass /volu me] in Blood interpretati on and review of laboratory results Abnorm al Not Available Not Available 17:21:27 11/13/19 25 11/12/2024 Magne sium [Mass /volu me] in Serum or Plasm a magnesium [mass/volume ] in serum or plasma 2.1 mg/dL low: 1.6mg/ dLhigh : 2.6mg/ dL Magne sium 2.1 1.6 - 2.6 mg/dL 11/12 9:42 PM CDT [facility] MAXIMILIAN Not Available Not Available 11/16/2024 14:09:48 11/13/1911/12/2024 Magne sium [Mass /volu me] in Serum or Plasm a interpretati on and review of laboratory results Normal Not Available Not Available 11/03 14:09:48 11/13/19 25 11/12/2024 Compr ehens larry metab olic 1999 panel - Serum or Plasm a urea nitrogen [mass/volume ] in serum or plasma 14 mg/dL low: 7mg/dL high: 26mg/d L BUN 14 7 - 26 mg/dL 11/12 9:42 PM CDT [facility] Not Available Not Available 11/16/2024 14:09:48 11/13/1911/12/2024 Compr ehens larry metab olic 1999 panel - Serum or Plasm a creatinine [mass/volume ] in serum or plasma 0.61 mg/dL low: 0.56mg /dLhig h: 0.96mg /dL Creat inine 0.61 0.56 - 0.96 mg/dL 11/12 9:42 PM CDT [facility] Not Available Not Available 11/16/2024 14:09:48 11/13/19 25 11/12/2024 Compr ehens larry metab olic 1999 panel - Serum or Plasm a sodium [moles/volum e] in serum or plasma 138 mmol/ L low: 136mmo l/Lhig h: 145mmo l/L Sodiu m 138 136 - 145 mmol/ L 11/12 9:42 PM CDT [facility] Not Available Not Available 11/16/2024 14:09:48 11/13/1911/12/2024 Compr ehens larry metab olic 1999 panel - Serum or Plasm a potassium [moles/volum e] in serum or plasma 4.1 mmol/ L low: 3.5mmo l/Lhig h: 4.5mmo l/L Potas sium 4.1 3.5 - 4.5 mmol/ L 11/12 9:42 PM CDT [facility] Not Available Not Available 11/16/2024 14:09:48 11/13/19 25 11/12/2024 Compr ehens larry metab olic 1999 panel - Serum or Plasm a chloride [moles/volum e] in serum or plasma 105 mmol/ L low: 98mmol /Lhigh : 107mmo l/L Chlor emre 105 98 - 107 mmol/ L 11/12 9:42 PM CDT [facility] Not Available Not Available 11/16/2024 14:09:48 11/13/19 25 11/12/2024 Compr ens larry metab olic 1999 panel - Serum or Plasm a carbon dioxide, total [moles/volum e] in serum or plasma 24 mmol/ L low: 22mmol /Lhigh : 29mmol /L CO2 24 22 - 29 mmol/ L 11/12 9:42 PM CDT [facility] Not Available Not Available 11/16/2024 14:09:48 11/13/19 25 11/12/2024 [facility]ens larry metab olic 1999 panel - Serum or Plasm a glucose [mass/volume ] in serum or plasma 88 mg/dL low: 70mg/d Lhigh: 99mg/d L Gluco se 88 70 - 99 mg/dL 11/12 9:42 PM CDT [facility] Not Available Not Available 11/16/2024 14:09:48 11/13/19 25 11/12/2024 [facility] larry metab ic 1999 panel - Serum or Plasm a calcium [moles/volum e] in serum or plasma 9.2 mg/dL low: 8.4mg/ dLhigh : 10.2mg /dL Calci um 9.2 8.4 - 10.2 mg/dL 11/12 9:42 PM CDT [facility] Not Available Not Available 11/16/2024 14:09:48 11/13/19 25 11/12/2024 Compr ens larry metab olic 1999 panel - Serum or Plasm a protein [mass/volume ] in serum or plasma 7.3 g/dL low: 6g/dLh igh: 8.3g/d L Prote in Total 7.3 6.0 - 8.3 g/dL 11/12 9:42 PM CDT [facility] Not Available Not Available 11/16/2024 14:09:48 11/13/19 25 11/12/2024 Compr ehens larry metab olic 1999 panel - Serum or Plasm a albumin [mass/volume ] in serum or plasma by bromocresol green (bcg) dye binding method 4 g/dL low: 3.4g/d Lhigh: 5g/dL Album in 4.0 3.4 - 5.0 g/dL 11/12 9:42 PM CDT [facility] Not Available Not Available 11/16/2024 14:09:48 11/13/19 25 11/12/2024 Compr ehens larry metab olic 1999 panel - Serum or Plasm a bilirubin.to maximilian [mass/volume ] in serum or plasma 0.2 mg/dL low: 0.2mg/ dLhigh : 1.2mg/ dL Bilir ubin Total 0.2 0.2 - 1.2 mg/dL 11/12 9:42 PM CDT [facility] Not Available Not Available 11/16/2024 14:09:48 11/13/19 25 11/12/2024 Compr ehens larry metab olic 1999 panel - Serum or Plasm a alkaline phosphatase [enzymatic activity/vol ume] in serum or plasma 112 U/L low: 40U/Lh igh: 150U/L Alkal ine Phosp hatas e 112 40 - 150 U/L 11/12 9:42 PM CDT [facility] Not Available Not Available 11/16/2024 14:09:48 11/13/19 25 11/12/2024 Compr ehens larry metab olic 2000 panel - Serum or Plasm a alanine aminotransfe rase [enzymatic activity/vol ume] in serum or plasma by no addition of P-5'-P 18 U/L low: 5U/Lhi gh: 55U/L ALT 18 5 - 55 U/L 11/12 9:42 PM CDT [facility] Not Available Not Available 11/16/2024 14:09:48 11/13/19 25 11/12/2024 Compr ehens larry metab olic 2000 panel - Serum or Plasm a aspartate aminotransfe rase [enzymatic activity/vol ume] in serum or plasma 17 U/L low: 5U/Lhi gh: 34U/L AST 17 5 - 34 U/L 11/12 9:42 PM CDT [facility] Not Available Not Available 11/16/2024 14:09:48 11/13/19 25 11/12/2024 Compr ehens larry metab olic 1999 panel - Serum or Plasm a anion gap 9 low: 6high: 16 Anion Gap 9 6 - 16 11/12 9:42 PM CDT [facility] Not Available Not Available 11/16/2024 14:09:48 11/13/19 25 11/12/2024 Compr ehens larry metab olic 2000 panel - Serum or Plasm a urea nitrogen/cre atinine [mass ratio] in serum or plasma 23 low: 7high: 23 BUN/C reati nine Ratio 23 7 - 23 11/12 9:42 PM CDT [facility] Not Available Not Available 11/16/2024 14:09:48 11/13/19 25 11/12/2024 Compr ehens larry metab olic 2000 panel - Serum or Plasm a osmolality calculated 286 text: 275 - 295 mOsm/k g Osmol yudelka Mirandau lated 286 275 - 295 mOsm/ kg 11/12 9:42 PM CDT [facility] Not Available Not Available 11/16/2024 14:09:48 11/13/19 25 11/12/2024 Compr ehens larry metab olic 2000 panel - Serum or Plasm a albumin/glob ulin ratio 1.2 low: 1.1hig h: 2.3 Album in/Gl obuli n Ratio 1.2 1.1 - 2.3 11/12 9:42 PM CDT [facility] Not Available Not Available 11/16/2024 14:09:48 11/13/19 25 11/12/2024 Compr ehens larry metab olic 2000 panel - Serum or Plasm a glomerular filtration rate [volume rate/area] in serum, plasma or blood by creatinine-b ased formula (CKD-epi 2020)/1.73 sq M text: >=90 mL/min /1.73 m2 eGFR by CKD-E PI >90 >=90 mL/mi n/1.7 3 m2 11/12 9:42 PM CDT [facility] Not Available Not Available 11/16/2024 14:09:48 11/13/19 25 11/12/2024 Compr ehens larry metab olic 2000 panel - Serum or Plasm a interpretati on and review of laboratory results Normal Not Available Not Available 11/03 14:09:48 11/13/1911/12/2024 CBC W Auto Diffe renti al panel - Blood leukocytes [#/volume] in blood by automated count 5.7 text: 4.0 - 10.7 x10e9/ L WBC 5.7 4.0 - 10.7 x10E9 /L 11/12 9:20 PM CDT [facility] Not Available Not Available 11/16/2024 14:09:48 11/13/1911/12/2024 CBC W Auto Diffe renti al panel - Blood erythrocytes [#/volume] in blood by automated count 4.52 text: 3.90 - 5.20 x10e12 /L RBC Count 4.52 3.90 - 5.20 x10E1 2/L 11/12 9:20 PM CDT [facility] Not Available Not Available 11/16/2024 14:09:48 11/13/19 25 11/12/2024 CBC W Auto Diffe renti al panel - Blood hemoglobin [mass/volume ] in blood 10.9 g/dL low: 11.9g/ dLhigh : 15.8g/ dL low Hemog lobin 10.9 (L) 11.9 - 15.8 g/dL 11/12 9:20 PM CDT [facility] Not Available Not Available 11/16/2024 14:09:48 11/13/1911/12/2024 CBC W Auto Diffe renti al panel - Blood hematocrit [volume fraction] of blood by automated count 34.7 % low: 34.8%h igh: 46.1% low Hemat ocrit 34.7 (L) 34.8 - 46.1 % 11/12 9:20 PM CDT [facility] MAX[facility] Not Available Not Available 11/16/2024 14:09:48 11/13/1911/12/2024 CBC W Auto Diffe renti al panel - Blood MCV [entitic mean volume] in red blood cells by automated count 76.8 fL low: 80fLhi gh: 98fL low MCV 76.8 (L) 80.0 - 98.0 fL 11/12 9:20 PM CDT [facility] Not Available Not Available 11/16/2024 14:09:48 11/13/19 25 11/12/2024 CBC W Auto Diffe renti al panel - Blood MCH [entitic mass] by automated count 24.1 pg low: 26.7pg high: 33.6pg low MCH 24.1 (L) 26.7 - 33.6 pg 11/12 9:20 PM CDT [facility] Not Available Not Available 11/16/2024 14:09:48 11/13/1911/12/2024 CBC W Auto Diffe renti al panel - Blood MCHC [entitic mass/volume] in red blood cells by automated count 31.4 g/dL low: 31.7g/ dLhigh : 36.3g/ dL low MCHC 31.4 (L) 31.7 - 36.3 g/dL 11/12 9:20 PM T [facility] Not Available Not Available 11/16/2024 14:09:48 11/13/1911/12/2024 CBC W Auto Diffe renti al panel - Blood erythrocyte [distwidth] in red blood cells by automated count 17.2 % low: 11.3%h igh: 14.8% high RDW-C V 17.2 (H) 11.3 - 14.8 % 11/12 9:20 PM CDT [facility] Not Available Not Available 11/16/2024 14:09:48 11/13/19 25 11/12/2024 CBC W Auto Diffe renti al panel - Blood platelets [#/volume] in blood by automated count 396 text: 150 - 420 x10e9/ L Plate let Count 396 150 - 420 x10E9 /L 11/12 9:20 PM CDT [facility] MAXIM[facility] Not Available Not Available 11/16/2024 14:09:48 11/13/19 25 11/12/2024 CBC W Auto Diffe renti al panel - Blood platelet [entitic mean volume] in blood by automated count 9.7 fL low: 7.8fLh igh: 11.4fL MPV 9.7 7.8 - 11.4 fL 11/12 9:20 PM CDT [facility] Not Available Not Available 11/16/2024 14:09:48 11/13/19 25 11/12/2024 CBC W Auto Diffe renti al panel - Blood neutrophils/ leukocytes in blood by automated count 56 % low: 41%hig h: 74% Neutr ophil % 56.0 41.0 - 74.0 % 11/12 9:20 PM CDT [facility] Not Available Not Available 11/16/2024 14:09:48 11/13/19 25 11/12/2024 CBC W Auto Diffe renti al panel - Blood lymphocytes/ leukocytes in blood by automated count 33.9 % low: 17%hig h: 47% Lymph ocyte % 33.9 17.0 - 47.0 % 11/12 9:20 PM CDT [facility] Not Available Not Available 11/16/2024 14:09:48 11/13/19 25 11/12/2024 CBC W Auto Diffe renti al panel - Blood monocytes/le ukocytes in blood by automated count 6.5 % low: 3%high : 11% Monoc yte % 6.5 3.0 - 11.0 % 11/12 9:20 PM CDT [facility] Not Available Not Available 11/16/2024 14:09:48 11/13/19 25 11/12/2024 CBC W Auto Diffe renti al panel - Blood eosinophils/ leukocytes in blood by automated count 3.1 % low: 0%high : 7% Eosin ophil % 3.1 0.0 - 7.0 % 11/12 9:20 PM CDT [facility] Not Available Not Available 11/16/2024 14:09:48 11/13/19 25 11/12/2024 CBC W Auto Diffe renti al panel - Blood basophils/le ukocytes in blood by automated count 0.3 % low: 0%high : 1.6% Basop hil % 0.3 0.0 - 1.6 % 11/12 9:20 PM CDT [facility] Not Available Not Available 11/16/2024 14:09:48 11/13/19 25 11/12/2024 CBC W Auto Diffe renti al panel - Blood immature granulocytes /leukocytes in blood by automated count 0.2 % low: 0%high : 1% Immat ure Granu locyt es % 0.2 0.0 - 1.0 % 11/12 9:20 PM CDT [facility] MAXIM[facility] Not Available Not Available 11/16/2024 14:09:48 11/13/19 25 11/12/2024 CBC W Auto Diffe renti al panel - Blood neutrophils [#/volume] in blood by automated count 3.21 text: 1.60 - 7.50 x10e9/ L Neutr ophil Absol [place] 3.21 1.60 - 7.50 x10E9 /L 11/12 9:20 PM CDT [facility] Not Available Not Available 11/16/2024 14:09:48 11/13/19 25 11/12/2024 CBC W Auto Diffe renti al panel - Blood lymphocytes [#/volume] in blood by automated count 1.94 text: 1.00 - 4.40 x10e9/ L Lymph ocyte Absol [place] 1.94 1.00 - 4.40 x10E9 /L 11/12 9:20 PM CDT [facility] Not Available Not Available 11/16/2024 14:09:48 11/13/19 25 11/12/2024 CBC W Auto Diffe renti al panel - Blood monocytes [#/volume] in blood by automated count 0.37 text: 0.15 - 1.00 x10e9/ L Monoc yte Absol [place] 0.37 0.15 - 1.00 x10E9 /L 11/12 9:20 PM CDT [facility] Not Available Not Available 11/16/2024 14:09:48 11/13/19 25 11/12/2024 CBC W Auto Diffe renti al panel - Blood eosinophils [#/volume] in blood 0.18 text: 0.00 - 0.60 x10e9/ L Eosin ophil Absol [place] 0.18 0.00 - 0.60 x10E9 /L 11/12 9:20 PM CDT [facility] Not Available Not Available 11/16/2024 14:09:48 11/13/19 25 11/12/2024 CBC W Auto Diffe renti al panel - Blood basophils [#/volume] in blood by automated count 0.02 text: 0.00 - 0.13 x10e9/ L Basop hil Absol [place] 0.02 0.00 - 0.13 x10E9 /L 11/12 9:20 PM CDT [facility] Not Available Not Available 11/16/2024 14:09:48 11/13/19 25 11/12/2024 CBC W Auto Diffe renti al panel - Blood interpretati on and review of laboratory results Abnorm al Not Available Not Available 14:09:48 11/15/1911/14/2024 CBC W Auto Diffe renti al panel - Blood leukocytes [#/volume] in blood by automated count 6.2 text: 4.0 - 10.7 x10e9/ L WBC 6.2 4.0 - 10.7 x10E9 /L 11/14 12:31 AM CDT [facility] Not Available Not Available 11/16/2024 14:17:45 11/15/1911/14/2024 CBC W Auto Diffe renti al panel - Blood erythrocytes [#/volume] in blood by automated count 4.04 text: 3.90 - 5.20 x10e12 /L RBC Count 4.04 3.90 - 5.20 x10E1 2/L 11/14 12:31 AM CDT [facility] Not Available Not Available 11/16/2024 14:17:45 11/15/19 25 11/14/2024 CBC W Auto Diffe renti al panel - Blood hemoglobin [mass/volume ] in blood 9.6 g/dL low: 11.9g/ dLhigh : 15.8g/ dL low Hemog lobin 9.6 (L) 11.9 - 15.8 g/dL 11/14 12:31 AM [facility] Not Available Not Available 11/16/2024 14:17:45 11/15/19 25 11/14/2024 CBC W Auto Diffe renti al panel - Blood hematocrit [volume fraction] of blood by automated count 31.6 % low: 34.8%h igh: 46.1% low Hemat ocrit 31.6 (L) 34.8 - 46.1 % 11/14 12:31 AM T [facility] Not Available Not Available 11/16/2024 14:17:45 11/15/19 25 11/14/2024 CBC W Auto Diffe kenyattati al panel - Blood MCV [entitic mean volume] in red blood cells by automated count 78.2 fL low: 80fLhi gh: 98fL low MCV 78.2 (L) 80.0 - 98.0 fL 11/14 12:31 AM T [facility] Not Available Not Available 11/16/2024 14:17:45 11/15/19 25 11/14/2024 CBC W Auto Diffe kenyattati al panel - Blood MCH [entitic mass] by automated count 23.8 pg low: 26.7pg high: 33.6pg low MCH 23.8 (L) 26.7 - 33.6 pg 11/14 12:31 AM T [facility] Not Available Not Available 11/16/2024 14:17:45 11/15/19 25 11/14/2024 CBC W Auto Diffe renti al panel - Blood MCHC [entitic mass/volume] in red blood cells by automated count 30.4 g/dL low: 31.7g/ dLhigh : 36.3g/ dL low MCHC 30.4 (L) 31.7 - 36.3 g/dL 11/14 12:31 AM [facility] Not Available Not Available 11/16/2024 14:17:45 11/15/19 25 11/14/2024 CBC W Auto Diffe renti al panel - Blood erythrocyte [distwidth] in red blood cells by automated count 17.2 % low: 11.3%h igh: 14.8% high RDW-C V 17.2 (H) 11.3 - 14.8 % 11/14 12:31 AM [facility] Not Available Not Available 11/16/2024 14:17:45 11/15/19 25 11/14/2024 CBC W Auto Diffe renti al panel - Blood platelets [#/volume] in blood by automated count 366 text: 150 - 420 x10e9/ L Plate let Count 366 150 - 420 x10E9 /L 11/14 12:31 AM [facility] Not Available Not Available 11/16/2024 14:17:45 11/15/1911/14/2024 CBC W Auto Diffe renti al panel - Blood platelet [entitic mean volume] in blood by automated count 9.4 fL low: 7.8fLh igh: 11.4fL MPV 9.4 7.8 - 11.4 fL 11/14 12:31 AM [facility] Not Available Not Available 11/16/2024 14:17:45 11/15/1911/14/2024 CBC W Auto Diffe renti al panel - Blood neutrophils/ leukocytes in blood by automated count 55.2 % low: 41%hig h: 74% Neutr ophil % 55.2 41.0 - 74.0 % 11/14 12:31 AM [facility] Not Available Not Available 11/16/2024 14:17:45 11/15/19 25 11/14/2024 CBC W Auto Diffe renti al panel - Blood lymphocytes/ leukocytes in blood by automated count 33.1 % low: 17%hig h: 47% Lymph ocyte % 33.1 17.0 - 47.0 % 11/14 12:31 AM CDT [facility] Not Available Not Available 11/16/2024 14:17:45 11/15/19 25 11/14/2024 CBC W Auto Diffe renti al panel - Blood monocytes/le ukocytes in blood by automated count 7.3 % low: 3%high : 11% Monoc yte % 7.3 3.0 - 11.0 % 11/14 12:31 AM CDT [facility] Not Available Not Available 11/16/2024 14:17:45 11/15/19 25 11/14/2024 CBC W Auto Diffe renti al panel - Blood eosinophils/ leukocytes in blood by automated count 3.4 % low: 0%high : 7% Eosin ophil % 3.4 0.0 - 7.0 % 11/14 12:31 AM CDT [facility] Not Available Not Available 11/16/2024 14:17:45 11/15/19 25 11/14/2024 CBC W Auto Diffe renti al panel - Blood basophils/le ukocytes in blood by automated count 0.8 % low: 0%high : 1.6% Basop hil % 0.8 0.0 - 1.6 % 11/14 12:31 AM CDT [facility] Not Available Not Available 11/16/2024 14:17:45 11/15/19 25 11/14/2024 CBC W Auto Diffe renti al panel - Blood immature granulocytes /leukocytes in blood by automated count 0.2 % low: 0%high : 1% Immat ure Granu locyt es % 0.2 0.0 - 1.0 % 11/14 12:31 AM CDT [facility] Not Available Not Available 11/16/2024 14:17:45 11/15/19 25 11/14/2024 CBC W Auto Diffe renti al panel - Blood neutrophils [#/volume] in blood by automated count 3.4 text: 1.60 - 7.50 x10e9/ L Neutr ophil Absol [place] 3.40 1.60 - 7.50 x10E9 /L 11/14 12:31 AM CDT [facility] Not Available Not Available 11/16/2024 14:17:45 11/15/19 25 11/14/2024 CBC W Auto Diffe renti al panel - Blood lymphocytes [#/volume] in blood by automated count 2.04 text: 1.00 - 4.40 x10e9/ L Lymph ocyte Absol [place] 2.04 1.00 - 4.40 x10E9 /L 11/14 12:31 AM CDT [facility] Not Available Not Available 11/16/2024 14:17:45 11/15/19 25 11/14/2024 CBC W Auto Diffe renti al panel - Blood monocytes [#/volume] in blood by automated count 0.45 text: 0.15 - 1.00 x10e9/ L Monoc yte Absol [place] 0.45 0.15 - 1.00 x10E9 /L 11/14 12:31 AM CDT [facility] Not Available Not Available 11/16/2024 14:17:45 11/15/19 25 11/14/2024 CBC W Auto Diffe renti al panel - Blood eosinophils [#/volume] in blood 0.21 text: 0.00 - 0.60 x10e9/ L Eosin ophil Absol [place] 0.21 0.00 - 0.60 x10E9 /L 11/14 12:31 AM CDT [facility] Not Available Not Available 11/16/2024 14:17:45 11/15/19 25 11/14/2024 CBC W Auto Diffe renti al panel - Blood basophils [#/volume] in blood by automated count 0.05 text: 0.00 - 0.13 x10e9/ L Basop hil Absol [place] 0.05 0.00 - 0.13 x10E9 /L 11/14 12:31 AM T [facility] Not Available Not Available 11/16/2024 14:17:45 11/15/19 25 11/14/2024 CBC W Auto Diffe renti al panel - Blood interpretati on and review of laboratory results Abnorm al Not Available Not Available 14:17:45 11/15/19 25 11/14/2024 Compr ehens larry metab olic 1999 panel - Serum or Plasm a urea nitrogen [mass/volume ] in serum or plasma 17 mg/dL low: 7mg/dL high: 26mg/d L BUN 17 7 - 26 mg/dL 11/14 12:53 AM CDT [facility] Not Available Not Available 11/16/2024 14:17:45 11/15/19 25 11/14/2024 Compr ehens larry metab olic 1999 panel - Serum or Plasm a creatinine [mass/volume ] in serum or plasma 0.66 mg/dL low: 0.56mg /dLhig h: 0.96mg /dL Creat inine 0.66 0.56 - 0.96 mg/dL 11/14 12:53 AM CDT [facility] Not Available Not Available 11/16/2024 14:17:45 11/15/1911/14/2024 Compr ehens larry metab olic 1999 panel - Serum or Plasm a sodium [moles/volum e] in serum or plasma 140 mmol/ L low: 136mmo l/Lhig h: 145mmo l/L Sodiu m 140 136 - 145 mmol/ L 11/14 12:53 AM T [facility] Not Available Not Available 11/16/2024 14:17:45 11/15/19 25 11/14/2024 Compr ehens larry metab olic 1999 panel - Serum or Plasm a potassium [moles/volum e] in serum or plasma 4.4 mmol/ L low: 3.5mmo l/Lhig h: 4.5mmo l/L Potas sium 4.4 3.5 - 4.5 mmol/ L 11/14 12:53 AM CDT [facility] Not Available Not Available 11/16/2024 14:17:45 11/15/19 25 11/14/2024 Compr ehens larry metab olic 1999 panel - Serum or Plasm a chloride [moles/volum e] in serum or plasma 108 mmol/ L low: 98mmol /Lhigh : 107mmo l/L high Chlor emre 108 (H) 98 - 107 mmol/ L 11/14 12:53 AM CDT [facility] Not Available Not Available 11/16/2024 14:17:45 11/15/19 25 11/14/2024 Compr Kivedaens larry metab olic 1999 panel - Serum or Plasm a carbon dioxide, total [moles/volum e] in serum or plasma 19 mmol/ L low: 22mmol /Lhigh : 29mmol /L low CO2 19 (L) 22 - 29 mmol/ L 11/14 12:53 AM CDT [facility] Not Available Not Available 11/16/2024 14:17:45 11/15/19 25 11/14/2024 Compr ehens larry metab olic 1999 panel - Serum or Plasm a glucose [mass/volume ] in serum or plasma 91 mg/dL low: 70mg/d Lhigh: 99mg/d L Gluco se 91 70 - 99 mg/dL 11/14 12:53 AM CDT [facility] Not Available Not Available 11/16/2024 14:17:45 11/15/19 25 11/14/2024 Compr Kivedaens larry metab olic 1999 panel - Serum or Plasm a calcium [moles/volum e] in serum or plasma 9 mg/dL low: 8.4mg/ dLhigh : 10.2mg /dL Calci um 9.0 8.4 - 10.2 mg/dL 11/14 12:53 AM CDT [facility] Not Available Not Available 11/16/2024 14:17:45 11/15/19 25 11/14/2024 Compr Kivedaens larry metab olic 1999 panel - Serum or Plasm a protein [mass/volume ] in serum or plasma 6.7 g/dL low: 6g/dLh igh: 8.3g/d L Prote in Total 6.7 6.0 - 8.3 g/dL 11/14 12:53 AM T [facility] Not Available Not Available 11/16/2024 14:17:45 11/15/19 25 11/14/2024 Compr ehens larry metab olic 1999 panel - Serum or Plasm a albumin [mass/volume ] in serum or plasma by bromocresol green (bcg) dye binding method 3.7 g/dL low: 3.4g/d Lhigh: 5g/dL Album in 3.7 3.4 - 5.0 g/dL 11/14 12:53 AM CDT [facility] Not Available Not Available 11/16/2024 14:17:45 11/15/19 25 11/14/2024 Compr ens larry metab olic 1999 panel - Serum or Plasm a bilirubin.to maximilian [mass/volume ] in serum or plasma 0.1 mg/dL low: 0.2mg/ dLhigh : 1.2mg/ dL low Bilir ubin Total 0.1 (L) 0.2 - 1.2 mg/dL 11/14 12:53 AM CDT [facility] Not Available Not Available 11/16/2024 14:17:45 11/15/19 25 11/14/2024 Compr ehens larry metab olic 1999 panel - Serum or Plasm a alkaline phosphatase [enzymatic activity/vol ume] in serum or plasma 99 U/L low: 40U/Lh igh: 150U/L Alkal ine Phosp hatas e 99 40 - 150 U/L 11/14 12:53 AM CDT [facility] Not Available Not Available 11/16/2024 14:17:45 11/15/19 25 11/14/2024 Compr ehens larry metab olic 1999 panel - Serum or Plasm a alanine aminotransfe rase [enzymatic activity/vol ume] in serum or plasma by no addition of P-5'-P 15 U/L low: 5U/Lhi gh: 55U/L ALT 15 5 - 55 U/L 11/14 12:53 AM CDT [facility] Not Available Not Available 11/16/2024 14:17:45 11/15/19 25 11/14/2024 Compr ehens larry metab olic 2000 panel - Serum or Plasm a aspartate aminotransfe rase [enzymatic activity/vol ume] in serum or plasma 18 U/L low: 5U/Lhi gh: 34U/L AST 18 5 - 34 U/L 11/14 12:53 AM CDT [facility] Not Available Not Available 11/16/2024 14:17:45 11/15/19 25 11/14/2024 Compr ehens larry metab olic 2000 panel - Serum or Plasm a anion gap 13 low: 6high: 16 Anion Gap 13 6 - 16 11/14 12:53 AM CDT [facility] Not Available Not Available 11/16/2024 14:17:45 11/15/19 25 11/14/2024 Compr ehens larry metab olic 2000 panel - Serum or Plasm a urea nitrogen/cre atinine [mass ratio] in serum or plasma 26 low: 7high: 23 high BUN/C reati nine Ratio 26 (H) 7 - 23 11/14 12:53 AM CDT [facility] Not Available Not Available 11/16/2024 14:17:45 11/15/19 25 11/14/2024 Compr ehens larry metab olic 2000 panel - Serum or Plasm a osmolality calculated 291 text: 275 - 295 mOsm/k g Osmol ality Calcu lated 291 275 - 295 mOsm/ kg 11/14 12:53 AM CDT [facility] Not Available Not Available 11/16/2024 14:17:45 11/15/19 25 11/14/2024 Compr ehens larry metab olic 2000 panel - Serum or Plasm a albumin/glob ulin ratio 1.2 low: 1.1hig h: 2.3 Album in/Gl obuli n Ratio 1.2 1.1 - 2.3 11/14 12:53 AM CDT [facility] Not Available Not Available 11/16/2024 14:17:45 11/15/19 25 11/14/2024 Compr ehens larry metab olic 2000 panel - Serum or Plasm a glomerular filtration rate [volume rate/area] in serum, plasma or blood by creatinine-b ased formula (CKD-epi 2020)/1.73 sq M text: >=90 mL/min /1.73 m2 eGFR by CKD-E PI >90 >=90 mL/mi n/1.7 3 m2 11/14 12:53 AM CDT [facility] Not Available Not Available 11/16/2024 14:17:45 11/15/19 25 11/14/2024 Compr ehens larry metab olic 2000 panel - Serum or Plasm a interpretati on and review of laboratory results Abnorm al Not Available Not Available 14:17:45 08/31/19 25 08/28/2024 XR, chest , 2 view No observ ation record ed. [facility] [place] (Central Scheduling) [address], [place], [address], 09/01/2024 12:56:55 10/14/19 25 10/13/2024 CT, abdom en + pelvi s, w/ contr ast No observ ation record ed. [facility] [address], [place], [address], 10/13/2024 14:09:32 10/16/19 25 10/15/2024 US, abdom en, limit ed No observ ation record ed. [email or web address], [place], [address], 10/15/2024 14:25:53 11/03/19 25 11/02/2024 MAMMO , scree ada, digit al, bilat eral No observ ation record ed. [facility] [address] , [place], [address], 11/03/2024 00:25:41 Result Notes None recorded. Problems Name Problem SNOMED Code Status Onset Date Resolution Date Notes Provider Name and Address Organization Details Recorded Time Past history of eclampsia 963020365 Active 2021 Sue Snow MD Attn: Accounting ,[address], [place], [address] , [facility] 13:32:06 History of traumatic brain injury 22873026906 100 Active 2021 Cedric Martinez MD Attn: Accounting ,[address] [facility], [place], [address] , [place] - [facility] 3 20:37:50 Seizure disorder 391906583 Active 2013 Cedric Martinez MD Attn: Accounting ,[address] [place], [address] , [place] - [facility] 3 20:38:02 Chronic obstructi ve pulmonary disease 52450493 Active 2013 Not Available [facility] 22:53:00 Anxiety 69234513 Active 2022 Cedric Martinez MD Attn: Accounting ,[address] [place], [address] , [place] - [facility] 3 20:37:29 History of diabetes mellitus type 2 689965478 Active 2022 Cedric Martinez MD Attn: Accounting ,[address] [place], [address] , [place] - [facility] 3 20:37:41 History of malignant neoplasm of uterine body 606071123 Active 2022 s/p total hysterect brooks in 2003 Cedric Martinez MD Attn: Accounting ,[address] [place], [address] , [place] - [facility] 3 20:37:47 History of bypass of stomach 815069841 Active 2022 Cedric Martinez MD Attn: Accounting ,[address] [place], [address] , [place] - [facility] 3 20:37:38 Compressi on fracture of lumbar spine 487633050 Active 2022 Cedric Martinez MD Attn: Accounting ,[address] [place], [address] , [place] - [facility] 3 20:37:33 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 171632403 Active 2022 Robina Jones LPN null, [place] - [facility] 4 18:08:58 Chronic back pain 718382862 Active 2023 xray 07/27-mod spondylos is-s/p sx - sees specialsi t Dr.Kumar ifeanyi Snow MD Attn: Accounting ,[address] [facility], [place], [address] , [place] - [facility] 4 10:40:33 Osteopeni a 137637041 Active 2023 dexa 07/27 Sue Snow MD Attn: Accounting ,[address] [facility], [place], [address] , [place] - [facility] 4 10:24:32 Mixed anxiety and depressiv e disorder 641990936 Active 2023 -pt has psych 03/17/24 Sue Snow MD Attn: Accounting ,[address] [facility], [place], [place], [address] [place] [address] , [place] - [facility] 4 14:18:23 Essential hypertens ion 53538519 Active 2023 Sue Snow MD Attn: Accounting ,[address] [facility], [place], [place], [address] [place] [address] , [place] - [facility] 4 10:21:46 Hyperlipi demia 64311205 Active 2023 Sue Snow MD Attn: Accounting ,[address] [place], [address] , [place] - [facility] 4 10:21:48 Smoker 01743900 Active Cedric Martinez MD Attn: Accounting ,[address] [place], [address] , [place] - [facility] 3 20:38:06 Problem Notes None recorded. Procedures Surgical History Date Name Laterality Status Provider Name and Address Organization Details Recorded Time 11/02 Date of Last Mammogram completed Selena Lemus [place] [facility] 16:14:23 10/25 Carpal tunnel surgery completed Jhoana Lew [place] [facility] 10:09:43 08/14 esophagogastroduodenoscopy completed Shena Covarrubias MA [facility] 3 13:30:18 08/14 colonoscopy completed Shena Covarrubias MA [facility] 3 13:31:37 05/03 Gastric Bypass completed Ronda Gray [facility] 6 16:12:14 08/05 Total hysterectomy completed Nishi Aguilar APN, [employer]INC[employer]-C Attn: Accounting, [address], [place], [address], [place] [facility] 3 14:37:31 lobectomy of lung completed Mallory Stephens MA [facility] 0 14:50:44 laparoamnioscopy completed Mallory Stephens MA [facility] 0 14:55:03 delivery completed Mallory Stephens MA [facility] 0 14:55:58 Imaging Results Imaging Date Name Status LastModified by Organiz ation Details LastModified Time 08/28/2024 XR, chest, 2 view completed [facility] [place] (Central Scheduling) [address], [place], [address], 09/01/2024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 discharged to home, unlikely her labs were concerning ), and anemia. Arrhythmia and MA less likely based on presentati on, age, lack of personal cardiac history, no known significan t cardiac family history.- will check CMP for electrolyt e imbalance, possible JEAN- will check CBC to rule out anemia (also taking iron and does not need based on last CBC and iron panel)- ECG at [facility] (patient needed to get to work otherwise would have done it at the clinic; not as urgent at this time due to low suspicion of arrhythmia or MA)- RTC in 2 months or earlier pending results Overweight 121356400 E66 .3 Discussed safer weight loss alternativ es such as Trulicity or Ozempic. Patient amenable to starting.D ue to borderline blood pressure and pre-syncop al episodes, discontinu ed phentermin e.- will check HbA1c prior to prescribin g GLP-1 (in the unlikely scenario she is diabetic)- RTC in 2 months to see how she is tolerating GLP-1 (was educated on GI symptoms) Anxiety 77147716 F41.9 ADELAIDE-7 18 today. Increased overall due to several family issues.Wou ld like to talk to therapist. RTC in 2 months History of diabetes mellitus type 2 482341543 Z86.39 Per chart review, patient was on Humalog sliding scale for diabetes up until about 7 years ago.Most recent HbA1c in 2018 was 5.3. Could not find records of HbA1c higher than 5.8. Oldest HbA1c on record from 2013 which was 5.7. Left side sciatica 18818 93707 85648 M54.32 + straight leg raiseAggra vated with [...] conservati ve management at this time. Smoker 22978176 F17.200 Continues to smoke - not interested in quittingHx of lung cancer s/p lobectomy [id number] MD Harry Veras 14 IM [address] [facility] [address] [place] [address] 02/22/2023 15:14:03 02/25/2023 13:25:53 Hypoglycemia 144907403 E16.2 BG in 50s while she was in the hospital. As patient not on any insulin or glucose-lo wering medication s, will check for insulin antibodies , possible autoimmune process as cause of hypoglycem ia. She has not decreased her po intake. Paresthesi a of upper limb 58253262 R20.2 Will rule out vitamin B12 and folate although less likely as would not be localized to only right sideEMG/NC S to see if patient has severe carpal tunnel, although would not explain lower paresthesi a Paresthesi a of lower extremity 379611750 R20.2 See paresthesi a of upper limb Muscle weakness 75508260 M62.81 PT to increase muscle strengthOr dered MRI for further assessment due to acute onset and severity of symptoms Overweight 853257345 E66 .3 Smoker 92222546 F17.200 Continues to smoke - not interested in quittingHx of lung cancer s/p lobectomy [id number] MD Harry HURT 14 IM [address] [facility] [address] [place] [address] 1 03/08/2023 10:17:54 04/02/2023 15:14:25 Depressive disorder 84734981 F32.A PHQ-9: 21Will address at next visitLiaudrey salter related to ongoing medical issues, was having family issues as well last timeRTC in 2 months Muscle pain 02053727 M79 .10 Secondary to multiple falls recentlyCa n continue taking Naproxen as neededBacl ofen 5mg TID for muscle spasms Migraine 85480314 G43.90 9 Patient stated that she cannot take Tylenol as it makes her nauseatedP atient instructed to keep taking naproxen Seizure disorder 8833750 [address] Daley's office to see if patient can be seen sooner than June. Patient put on waitlist of patient's to be called in case someone cancels.Do es not need Keppra refilled at this time.Neuro logy can also further workup her right sided weaknessPa tient cannot drive until she is seizure free for 6 monthsRTC in 2 months Overweight 982114340 E66 .3 Smoker 68113887 F17.200 Continues to smoke - not interested in quittingHx of lung cancer s/p lobectomy [id number] MD Harry Panchal 14 IM [address] [facility] [address] [place] [address] 03/19/2023 09:44:06 04/02/2023 16:05:19 Numbness and tingling sensation of skin 2194014501 02 R20.2 Differenti al includes cauda equina [...] CRP orderedRTC in 1 month Seizure disorder 2285903 02 G40.909 Patient with breakthrou gh seizure on Keppra 500mg BID - increase to 1000mg BIDPatient cannot drive until she is seizure free for 6 monthsUpco jero appointmen t with Dr. Daley neurology [place] 1 months Kidney stone 06258860 N2 0.0 R kidney stone based on CT abdomen/pe lvisPatien t to follow-up with urologist History of syncope 85308 46822 62602 Z86.79 Likely secondary to seizures.W ill call [facility] cardiology team to see if they can let patient know results of 30 day monitor - last day is today - before her appointmen t in May. Carpal mk asif syndrome of right wrist 8946692977 05985 G56.01 Severe right carpal tunnel based on EMG/NCSWil l defer surgery referral until we have neurology recs as this may be part of bigger picture Mixed anxi ety and depressive disorder 920047371 F41.8 Patient sees psychiatry but they do not want to put her on any medication at this time due to her being on anti-epile ptics and until results of cardiac monitoring are in.No SI/HI [id number] MD Harry Panchal 14 IM [address] [facility] [address] [place] [address] 04/11/2023 09:48:19 04/15/2023 13:25:41 Compression fracture of lumbar spine 951995071 M48.56XA MRI lumbar 04/02:Recen t superior endplate [...] use of the walker Neurological symptom 308 708969 R29.90 Patient with longstandi ng history of [...] a lumbar to evaluate for IGg) Epilepsy 12174972 G40.90 9 04/01/2023 EEG showed left temporal [...] Liver enzy mes level above reference range 246248536 R74.01 - family history of genetic disorder; patient has concern that this is the cause of her symptoms- AAT was ordered on 03/28--> but pt never had it doneif low will plan genotype testing (genotype likely more expensive so will wait to order until confirmed low AAT levels) [id number] MD Harry HURT [address] [facility] [address] [place] [address] [address] 04/18/2023 10:41:41 04/22/2023 14:19:10 Seizure disorder 195837788 G40.909 Seizure precaution s were discussed, which include the following. No driving until the patient has been seizure-fr ee for six consecutiv e months. Avoid tub baths. Take showers only. Avoid swimming in pools and hot tubs without supervisio n. Appointmen t with Dr. 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 04/01/2023 MRI of the brain without [...] and L4/S1 radiculopa thy Neurogenic urinary bladder 660278744 N31.9 Likely neurogenic based on decreased sensation/ urge to urinate, likely related to progressin g neuropathi c diseaseDoe s have urology referral already - see neurosurge ry first if they will address issue - if not, can go ahead and make appointmen t for urologyAdu lt diapers ordered Liver enzy mes level above reference range 518309549 R74.01 A1AT and ceruloplas min WNL - reviewed with patient [id number] MD Harry HURT [address] [facility] [address] [place] [address] 05/09/2023 16:10:57 06/07/2023 13:53:48 Elevated blood-pressure reading without diagnosis of hypertension 292439896 R03.0 Repeat BP 146/90. Patient with no history of HTN. Possibly secondary to pain, anxiety, NSAID use.RTC in 1 month. Traumatic ulceration of tongue 47021660 K14.0 Secondary to seizure. Healing well. No signs of infection. Peripheral motor neuropathy 35323956 G62.81 04/01/2023 MRI of the brain without evidence of temporal sclerosis. Spine MRI: cervical and thoracic unremarkab le, lumbar: Recent superior end plate compressio n fractures of L2 and L3 without retropulsi on. Moderate left L5-S1 neural foraminal narrowing secondary to disc disease. Still need to rule out MS with lumbar puncture - will follow up with neurosurge nolvia if okay to proceed although at this [...] times. Compressio n fracture of lumbar spine 029837867 M48.56XA MRI lumbar 04/02:Recen t superior end plate compressio n fractures of L2 and L3 without retropulsi on. Moderate left L5-S1 neural foraminal narrowing secondary to disc disease. Patient wishes referral to different pain management provider. Was referred to PM by neurosurge nolvia but has not heard from them. [id number] Maria L Chacon MD [place] [address] [facility] [address] [place] [address] 05/23/2023 14:49:09 06/07/2023 14:05:50 Seizure disorder 594628635 G40.909 Patient agreeable to restarting keppra 1mg [...] t with Dr. 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 Will confirm with radiologis t that location of lumbar puncture will not affect current lumbar fracture. Gastroesop hageal reflux disease 380403840 K21.9 To be taken with oxycodone 5mg due to GI issues Compressio n fracture of lumbar spine 651048001 M48.56XD MRI lumbar 04/02:Recen t superior end plate compressio n fractures of L2 and L3 without retropulsi on. Moderate left L5-S1 neural foraminal narrowing secondary to disc disease. Has pain management appointmen t on 05/31 - oxycodone 5mg til then [id number] MD Harry HURT 14 IM [address] [facility] [place] [address] 06/06/2023 10:57:29 06/14/2023 09:40:18 Closed fracture lumbar vertebra 261545709 S32.009A Avoid narcoticsN abumetone 500mg BID prnDC ibuprofen and naproxen (had told patient not to take both previously )Increased pregabalin to 200mg BIDFollow up with [facility] Follow up with [facility]ge [facility] in 1 month [id number] MD Harry Panchal [address] [facility] [place] [address] 06/24/2023 10:39:17 06/28/2023 12:00:32 Seizure disorder 105361425 G40.909 Strongly urged patient to take her seizure medication s as prescribed by Dr. Daely - carbamazep ine 100mg ER - patient declinedAd vised against operating any motor vehicle until 6 months seizure free Compressio n fracture of lumbar spine 066371668 M48.56XD MRI lumbar 04/02:Recen t superior end plate compressio n fractures of L2 and L3 without retropulsi on. Moderate left L5-S1 neural foraminal narrowing secondary to disc disease. 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 Will get second opinion from [facility] NeurologyD id have brain MRI which was consistent with possible demyelinat ion but likely not MS in nature; LP WNLNot in acute episode at this time [id number] MD [place] Patiño 14 IM [address] [facility] [place] [address] 07/11/2023 09:40:56 07/18/2023 10:47:00 Obesity 489429377 E66.9 Schmorl's nodes of lumbar region 59535126 M51.46 New finding on recent X-ray of L-spineGiv en patient's radiculopa thy history, tenderness on L-spine (granted does have fx there), will order MRIPatient given MRI order as well as # of [facility] neurologis t for second opinion on polyradicu lopathy, seizuresFo llow up with meghann cisneros neurosurge on Hematochezia 689381885 K 92.1 Recent colonoscop y which was normal earlier this year, normal BMsPossibl e anal fissure or new hemorrhoid sinceSince occurred since fall, will order some coagulatio n studiesWil l check on current iron/Hb levels - takes iron every other day [id number] MD Harry Moya 14 IM [address] [facility] [address] [place] [address] 08/12/2023 08:49:08 08/13/2023 10:40:38 Chest pain 03135500 R07.9 Most likely MSK in origin as is reproducib le and related to exertionEC G in hospital with NSR and no acute ECG changes Compressio n fracture of lumbar spine 814388434 M48.56XD 08/30 appointmen t with neurosurge ry at [facility] - will hopefully schedule surgery at that visitUnabl e to see pain management due to insurance issuesDulo xetine prescribed as below for chronic low back pain Acute sinusitis 07239644 J01.90 Patient with sinus tenderness on exam and congestion To use Flonase daily along with Afrin - can d/c Afrin after 3 days or continue use; as long as it is with Flonase, rebound congestion should not occur Chronic low back pain 27 2054877 M54.50 Worsened since L-spine fx 07/04/23Pa tient agreeable to starting duloxetine - will help with pain and depression Seizure 54630446 R56.9 Patient strongly encouraged to go back on her seizure medication s - lacosamide and KeppraPati ent told to contact DMV due to her driving restrictio ns - no driving for 6 months after seizurePat ient referred to [facility] neurology - second opinionWas seeing Dr. 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 finisher Chronic back pain 394053 002 G89.29 with h/o compressio n fx - pt had sx at L3-4 on 11/26 - sees differential specialist -pt is on cyclobenza erick Chronic ob structive pulmonary disease 17579364 J44.9 with R/upper lobectomy for lung mass which was suspicious per pt Essential hypertension 49073714 I10 pt is on lisinopril Hyperlipidemia 50287515 E78.5 pt is on atorvastat in History of diabetes mellitus type 2 210322570 Z86.39 in remission after wt loss sx ( gastric bypass )- pt is on diet control [id number] Sue Snow MD [facility] (Adult Med) [address] [place] [address] 02/04/2024 09:19:45 02/10/2024 16:24:03 Chronic back pain 410930021 G89.29 with h/o compressio n fx - pt had sx at L3-4 on 11/26 and complicate d with abscess -s/p I and D-pt is still on oral antibiotic - sees ID and differential specialist - pt also has some neurologic al deficit on L/ lower leg and has some incontinen ce - specialist s are aware of that per pt -pt already had NCS per pt-pt is on cyclobenza erick Mixed anxi ety and depressive disorder 379654260 F41.8 - pt [facility]ri [facility] and sees therapist biwkly and 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 Seizure disorder 9944622 02 G40.909 with h/o head injury several yrs ago - pt is on carbamazep ineKeppra discontinu ed by neuro Essential hypertension 06347147 I10 pt is on lisinopril Hyperlipidemia 16461901 E78.5 pt is on atorvastat in History of diabetes mellitus type 2 862468950 Z86.39 in remission after wt loss sx ( gastric bypass )- pt is on diet control [id number] MD Jyothi Haro (Adult Med) [address] [place] [address] 02/27/2024 13:26:32 03/02/2024 10:38:02 Seizure disorder 854607571 G40.909 with h/o head injury several yrs ago - pt is on carbamazep ineKeppra discontinu ed by neuro-pt needs to find new neuro Chronic back pain 871808 002 G89.29 with h/o compressio n fx - pt had sx at L3-4 on 11/26 and complicate d with abscess -s/p I and D-pt is still on oral antibiotic - sees ID and differential specialist - pt also has some neurologic al deficit on L/ lower leg and has some incontinen ce - specialist s are aware of that per pt -pt already had NCS per pt-pt is on cyclobenza erick At [facility] ed risk for falls 584435191 Z91.81 due to back issues -pt to use walker at home as well-agree d to see PT Pain in right hand 03968 06798 70077 M79.641 with flexed little finger and swelling-c heck xray againconsi lizzette hand surgeon referral if needed [id number] MD Jyothi Haro (Adult Med) [address] [place] [address] 04/14/2024 09:17:48 04/17/2024 11:01:12 Chronic back pain 436304989 G89.29 with h/o compressio n fx - pt had sx at L3-4 on 11/26 and complicate d with abscess -s/p I and D-pt is still on oral antibiotic - sees ID and differential specialist - pt also has some neurologic al deficit on L/ lower leg and has some incontinen ce - specialist s are aware of that per pt -pt already had NCS per pt-pt is on cyclobenza erick Seizure disorder 5538369 02 G40.909 with h/o head injury several yrs ago - pt is on carbamazep ineKeppra discontinu ed by neuro-pt needs to find new neuro Mixed anxi ety and depressive disorder 219602131 F41.8 - pt sees psychiatri st at [facility] and sees therapist biwkly and also has case workerpt is not on med Essential hypertension 78261179 I10 pt is on lisinopril Hyperlipidemia 16495775 E78.5 pt is noncomplia nt with atorvastat in due to GI upset - pt to try rosuvastat in 10mg History of diabetes mellitus type 2 175636155 Z86.39 in remission after wt loss sx ( gastric bypass )- pt is on diet control [id number] MD Jyothi Haro (Adult Med) [address] [place] [address] 06/30/2024 13:48:55 07/06/2024 09:07:28 Pancreatic enzyme level above reference range 317100862 R85.0 with recent normal lipase levelCT did not show any pancreatit is Chronic back pain 678939 002 G89.29 with h/o compressio n fx - pt had sx at L3-4 on 11/26 and complicate d with abscess -s/p I and D-pt is still on oral antibiotic - sees ID and differential specialist - pt also has some neurologic al deficit on L/ lower leg and has some incontinen ce - specialist s are aware of that per pt -pt already had NCS per pt-pt is on cyclobenza erick Mixed anxi ety and depressive disorder 006870740 F41.8 - pt sees psychiatri st at [facility] and sees therapist shanon and also has case workerpt is not on med Essential hypertension 87716180 I10 bp is off of lisinopril -observe without med Intermitte nt palpitations 601046866 R00.2 [id number] MD Jyothi Haro (Adult Med) [address] [place] [address] 08/10/2024 09:15:41 08/11/2024 09:26:15 Anemia 601838331 D64.9 -check labspt to continue vit B12 monthly Hyperlipidemia 92995521 E78.5 pt was noncomplia nt with atorvastat in due to GI upset - pt is tolerating rosuvastat in Chronic back pain 203880 002 G89.29 with h/o compressio n fx - pt had sx at L3-4 on 11/26 and complicate d with abscess -s/p I and D-pt completed antibiotic - sees differential specialist - pt also has some neurologic al deficit on L/ lower leg and has some incontinen ce - specialist s are aware of that per pt -pt already had NCS per pt Mixed anxi ety and depressive disorder 659818422 F41.8 - pt sees psychiatri st at [facility] and sees therapist biwkly and also has case workerpt is not on med - pt said psychiatri st does not want to start meds until her medical stuff settled Acute bronchitis 2018936 2 J20.9 vs pneumonia- pt to go to ER if problem worsen Disorder o f vitamin B12 541560684 E53.8 - pt to continue monthly b12 [id number] MD Jyothi Haro (Adult Med) [address] [place] [address] 08/17/2024 09:48:28 08/21/2024 12:24:10 Acute bronchitis 36042008 J20.9 vs pneumonia- pt to do cxr in 2-3 wks- pt to quit smoking /continue inhalers Mixed anxi ety and depressive disorder 919911473 F41.8 - pt sees psychiatri st at [facility] and sees therapist biwkly and also has case workerpt is not on med - pt said psychiatri st does not want to start meds until her medical stuff settled Chronic back pain 575529 002 G89.29 with h/o compressio n fx - pt had sx at L3-4 on 11/26 and complicate d with abscess -s/p I and D-pt completed antibiotic - sees differential specialist /pain mx in [place] -wants to see different pain mx- pt also has some neurologic al deficit on L/ lower leg and has some incontinen ce - specialist s are aware of that per pt -pt already had NCS per ptpt did not tolerate gabapentin [id number] MD Jyothi BROWNING (PATROL DEPUTY SHERIFF) [address] [place] [address] 10/01/2024 10:46:15 10/05/2024 12:38:03 Seizure disorder 380984932 G40.909 - Chronic uncontroll ed on carbamazep ine and Briviact- Management per Neurology; patient has reached out to office regarding recent seizures Hyperlipidemia 01693595 E78.5 - F/u repeat lipid panel Obesity 491321910 E66.9 - History of stomach bypass- Provided handout on healthy lifestyle Positive s creening for depression on PHQ-9 (Patient Health Questionnaire 9) 4135594777 29749 Z13.31 - Discussed PHQ-9 results with patient, including positive answer to question #9. Patient clarifies this is a chronic passive SI without a plan.- On sertraline 50 mg daily Type II di abetes mellitus in remission 196876388 E11.9 - Diabetes in remission, not on medication - A1c 5.8% ( 4) Screening for malignant neoplasm of breast 526155154 Z12.31 - Due for screening mammogram; ordered today Iron defic iency anemia 08704440 D50.9 - F/u CBC, iron studies, ferritin- Continue iron supplement ation Adult heal th examination 138903407 Z00.01 - Reviewed risks for cardiovasc ular disease, infection, and cancer; ordered screening tests as appropriat e- Recommende d annual flu vaccine and updated COVID vaccine- Additional vaccines recommende d by age/risk factors: PCV20 [id number] MD Jyothi BROWNING (PATROL DEPUTY SHERIFF) [address] [place] [address] 11/17/2024 16:01:20 11/18/2024 12:46:15 Pain of left eye 8352748254 98111 H57.12 - ED provider concerned for herpes ophthalmic us; patient continuing Valtrex as prescribed - Strongly advise patient seek optometris t or ophthalmol ogist evaluation tomorrow to confirm no further damage to globus or surroundin g orbital structures - Will defer steroid use until patient has been evaluated by ophtho or optometry Tinea corporis 58170443 B35.4 - Exam consistent with tinea corporis- Will treat with ketoconazo le 2% cream daily for 2 weeks 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 Has upcoming evaluation with MRI and EEG by Neurology at [facility]. Consider functional neurologic disorder as contributi ng to symptoms. Health Concerns Section Related Observation LastModified by Organization Detai ls LastModified Time None Recorded Concern Status LastModified by Organization Details LastModified Time None Recorded Advance Directives Directive N: Payers Encounter Date Sequence Insurance Name Policy Number Policy Varela Covered Member ID Varela Member ID Guarantor Name 08/10/2024 1 [facility] (MEDICAID HM) [id number] Tatiana Mcpherson [id number] Tatiana Mcpherson 08/17/2024 1 [facility] (MEDICAID HMO) [id number] Tatiana A Mcpherson [id number] Tatiana Mcpherson 10/01/2024 1 [facility] (MEDICAID HMO) [id number] Tatiana A Mcpherson [id number] Tatiana Mcpherson 11/17/2024 1 [facility] (MEDICAID HMO) [id number] Tatiana A Mcpherson [id number] [facility] Notes Date Note Type Note Provider Name and Address Organization Details Recorded Time 5 text/html Anxiety/DepressionReporte d bypatient.Quality:mood worse;increased anxiety Severity:denies suicidal ideations Context:major life stressors(PTSD with first marriage);family problems(kids with multiple health isuues -congenital); lives alone /on medical leave -working at [employer] Associated Symptoms:denies homicidal ideationsNotes:pt sees psychiatrist at [facility] /also sees therapist biwkly -Back PainReported bypatient.Location:pain radiating to the legs [...] well Sue Snow MD Attn: Accounting,[address] [facility], [place], [address], [place] - [place] 08/10/2024 15:35:46 5 text/html Anxiety/DepressionReporte d bypatient.Quality:mood worse;increased anxiety Severity:denies suicidal ideations Context:major life stressors(PTSD with first marriage/ financial);family problems(kids with multiple health issues -congenital); lives alone /on medical leave -working at [employer] Associated Symptoms:denies homicidal ideationsNotes:pt sees psychiatrist at [facility] /also sees therapist shanon -Back PainReported bypatient.Location:pain [...] well Sue Snow MD Attn: Accounting,[address] [facility], [place], [address], [facility] - [facility] 08/17/2024 14:43:50 5 text/html Annual [...] colonoscopy scheduled mid-October- Takes iron supplements routinely ELI ABBOTT MD Attn: Accounting,[address] [facility], [place], [address], [place] - [place] 10/05/2024 09:53:46 5 text/html Left eye pain- Feels like pressurized pain and burning of left eye. Has some pain with eye movement.- Has eye pain and blurriness bilaterally, which patient states is at baseline. The burning pain is new.- Rash is improved from when patient went to the ED. States swelling has also improved. Still has photophobia.- Was treated with Valtrex- Was told she had scratches on her eye by the ED provider- Requesting tetracaine ophthalmic solution, which did help symptoms in the ED- Has not seen an eye doctor yet Shingles- Also requesting prednsione, toradol, cyclobenzaprine or tizanidine, triamcinolone cream- Has persistent burning sensation of truncal rash. Would like to try lidocaine cream instead of patches. States patch placement and removal is painful. ELI ABBOTT MD Attn: Accounting,[address] [facility], [place], [address], [facility] - [facility] 11/17/2024 18:12:43 OBGyn Episode No OBEpisode recorded.
--- OUTSIDE RECORDS SUMMARY | 2024-11-25 21:30 | XMS_ITS | Encounter Summary ---
Author Organization [facility] Health Address [address] [place] [address] Care Team Providers Care Supervisor Multifocal Lens Name Role Phone Ally Chambers RN Unavailable [phone] Eli Abbott MD Primary Care Provider [phone] Encounter Details Date Type Department Care Team (Latest Contact Info) Description 11/24/2024 Travel Social History Tobacco Use Types Packs/Day Years [...] Recorded Patient Health Questionnaire-2 Score 0 04/27/2024 [facility] - Occupational Stress [...] place to sleep or slept in a fdc (including now)? Patient declined 12/13/2023 Comments No Sex and Gender Information Value Date Recorded Sex Assigned at Not on file Legal Sex Female 6:21 AM DIRECTOR OF CAREER RESOURCES Gender Identity Not on file Sexual Orientation [...] Author No 12/13/2023 2:29 AM CDT Glenn Barrow, SANJIV documented in this encounter Plan of Treatment Upcoming Encounters Date Type Department Care Team (Late st Contact Info) Description 11/27/2024 10:30 AM CDT Appointment [facility] EEG/EMG [address] [place] [address] [place] [address] [place] [address] [address] [place] [phone] 03/03/2025 4:00 PM CDT Office Visit [facility] - Neurology [address] [place] [phone] Francie Napoles PA-C [address] [place] [address] 03/10/2025 2:30 PM CDT Office Visit [facility] - Neurology [address] [place] [phone] Charanjit Jackson MD [address] [place] [address] [address] [address] documented as of this encounter Visit Diagnoses Not on filedocumented in this encounter Care Teams Supervisor Multifocal Lens Relationship Specialty Start Date End Date Eli Abbott MD [address] [place] [phone] PCP - General Family Medicine 11/24/24 Ally Chambers, RN Patient Representative 09/12/16 documented as of this encounter
--- OUTSIDE RECORDS SUMMARY | 2024-11-25 21:30 | XMS_ITS | Clinical Summary ---
Author Organization [facility] Address [address] [place] [address] Care Team Providers Care Refrigerating Engineer Name Role Phone Denver Veliz MD Unavailable Eriberto Skelton MD Unavailable [phone] Dalton Fragoso MD Unavailable [phone] Eli Abbott MD Primary Care Provider [phone] Allergies Active Allergy Reactions Criticality Noted Date [...] day 60 tablet 3 09/09/19 25 Active Additional Information Patient taking differently: 75 [...] DAY. 120 capsule 3 09/21/19 25 Active Additional Information Patient taking differently: 200 [...] 11/26/2023 Overview (01/16/2024): -pt has psych at [place] Spinal stenosis of lumbar re gion without [...] loss Assessment & Plan (09/16/2023 3:03 PM BOOKING SUPERVISOR): BMI 32.20 Discussed ADA diet Encourage exercising as tolerated Recommend weight loss Abrasion of forearm, left 09/16/2023 Assessment & Plan (09/16/2023 2:58 PM BOOKING SUPERVISOR): Abrasion is healing well without signs or symptoms of infection. Complete the Augmentin. Continue wound care as discussed Bilateral leg numbness 04/23/2023 Assessment & Plan (09/16/2023 3:00 PM BOOKING SUPERVISOR): As a result of bilateral sciatica. Accelerated [...] 04/02/2023 Assessment & Plan (09/16/2023 3:05 PM BOOKING SUPERVISOR): Scheduled for spinal fusion on 10/02/2023 by [...] surgeries. Assessment & Plan (09/16/2023 3:01 PM BOOKING SUPERVISOR): Last reported seizure was on 09/07/2023 Her [...] 02/14/2023 Assessment & Plan (09/16/2023 3:05 PM BOOKING SUPERVISOR): Status post hysterectomy with BSO Assessment & Plan (04/01/2023 3:47 PM CDT): S/p total hysterectomy Positive D-dimer 12/21/2022 Gallbladder with possible hydrops and stone 12/03 Diet-controlled diabetes mellitus 12/21/2022 Assessment & Plan (10/18/2023 10:53 AM CDT): Well controlled. Tries to follow an ADA diet. Her hemoglobin A1c on 10/15/2023 was 5.5%. No current medications. Assessment & Plan (09/16/2023 3:04 PM BOOKING SUPERVISOR): Patient can not recall her last A1c [...] visit Assessment & Plan (09/16/2023 3:02 PM BOOKING SUPERVISOR): She currently smokes 1/2 pack per day [...] 01/15/2008 Assessment & Plan (09/16/2023 2:59 PM BOOKING SUPERVISOR): Managed by Psychiatry, Dr. Fragoso No current medications Denies any SI/HI/SH Anxiety 01/15/2008 Assessment & Plan (09/16/2023 3:00 PM BOOKING SUPERVISOR): Stable. Managed by Dr. Fragoso. No current [...] exercise Assessment & Plan (09/16/2023 3:07 PM BOOKING SUPERVISOR): BP 135/88 in the office today She [...] 04/08/2023 Assessment & Plan (09/16/2023 3:07 PM BOOKING SUPERVISOR): See above Seizure 03/31/2023 10/17/2023 Right arm pain 02/15/2023 10/17/2023 Right arm weakness 02/15/2023 Tobacco use disorder 02/13/2018 024 Assessment & Plan (09/16/2023 3:08 PM BOOKING SUPERVISOR): Currently smokes 1/2 pack per day Not interested in quitting at this time but will discuss at next office visit Seizure disorder 12/19/2013 10/17/2023 Overview (11/08/2016): Seizure disorder Assessment & Plan (09/16/2023 3:08 PM BOOKING SUPERVISOR): Managed by Dr. Barraza Encounters Date Type Department Care Team Description 11/16/2024 Telephone [facility] [place] [address] [place] [phone] Janelle Mina 11/15/2024 1:49 AM CDT - 11/15/2024 2:57 AM CDT Emergency [facility] Emergency Department [address] [place] [address] Chidi Mclain MD Herpes zoster with ophthalmic complication, unspecified herpes zoster eye disease (Primary Dx); Herpes zoster with complication Discharge Disposition: Left Against Medical Advice 11/15/2024 12:18 AM CDT - 11/15/2024 1:35 AM CDT Emergency [facility] Emergency Department [address] [place] [address] Discharge Disposition: Left without being seen 11/15/2024 Telephone [facility] [address] [facility] 1st [place] [id number] Nasima Ramirez MD 11/11/2024 Telephone [facility] Imaging and Radiology [address] [place] [address] Nadja Lacy RN Advice Only 11/02/2024 9:13 AM CDT - 11/02/2024 11:59 PM CDT Hospital Encounter [facility] Imaging and Radiology [address] [place] [address] Encounter for screening mammogram for malignant neoplasm of breast Discharge Disposition: Discharge to home or self care 10/07/2024 Telephone [facility] Minimally Invasive Surgery [address] [facility] Medical Office Building [address] [place] [phone] Amy Camargo RN 09/29/2024 9:10 PM BOOKING SUPERVISOR - 09/29/2024 11:10 PM BOOKING SUPERVISOR Emergency [facility] Emergency Department [address] [place] [address] Cristina Veras MD Breakthrough seizure (HCC) (Primary Dx) Discharge Disposition: Discharge to home or self care 09/29/2024 8:57 PM BOOKING SUPERVISOR - 09/29/2024 11:59 PM BOOKING SUPERVISOR Hospital Encounter [facility] Emergency, Room R Discharge Disposition: Discharge to home or self care 09/09/2024 1:15 PM BOOKING SUPERVISOR Office Visit [facility] [address] [place] [address] [address] [address] Chhaya Saxena NP Carpal tunnel syndrome, bilateral (Primary Dx); Transient ischemic attack (TIA); Recurrent syncope; Seizures, generalized convulsive (HCC) 09/09/2024 Telephone [facility] [address] [place] [address] [address] [place] [address] Tari Elias MA 08/28/2024 3:33 PM BOOKING SUPERVISOR - 08/28/2024 11:59 PM BOOKING SUPERVISOR Hospital Encounter [facility] [address] [place] [address] Acute bronchitis, unspecified organism Discharge Disposition: Discharge [...] CARPAL TUNNEL RELEASE 10/04/2023 - 11/03/2023 Left SPINE SURGERY 09/05/2023 - 10/03/2023 Medical History Medical History Date Comments Chronic [...] a child, of child as an adult History of chemotherapy Family History Medical History Relation Name Comments Diabetes Father Diabetes mellit us; Breast cancer Father's Sister 1 Colon cancer Father's Sister 2 Diabetes Mother Diabetes mellit us; Ovarian cancer Mother Uterine cancer Mother Cancer, uteri ne; Alcohol [...] Stroke Other 9 Family history of Stroke; Ovarian cancer Sister Coronary artery disease Son 1 Julia nary artery disease; Seizures Son 2 Seizure disorde r; Relation Name Status Comments Father Alive Father's Sister 1 Father's Sister 2 Alive Mother Alive Other 1 Other 2 Other 3 Other 4 Other 5 Other 6 Other 7 Other 8 Other 9 Sister Son 1 Son 2 Social History Tobacco Use Types Packs/Day Years Used Date Smoking Tobacco: Every Day Cigarettes 0.8 30 Smokeless Tobacco: Never Tobacco Cessation:Ready to Q uit: Not Asked; Counseling Given: Not Answered Comments:1/2 pack daily Alcohol Use Standard Drinks/Week Comments No 0 (1 standard drink = 0.6 oz pur e alcohol) [facility] Utilities Answer Date Recorded In the [...] often do you attend chur ch or gnosticist services? Never 04/20/2024 Do you belong to any clubs o r organizations such as hoahaoism groups, unions, fraternal or athletic groups, or [...] place to sleep or slept in a penitentiary (including now)? No 04/24/2023 Housing Stability Vital [...] time in the past 12 m [facility], were you homeless or living in a penitentiary (including now)? No 04/20/2024 Personal Safety Answer Date Recorded Have you ever been in or are you currently in a harmful physical or emotional relationship or is someone making you feel afraid or unsafe? Denies 11/15/2024 Comments No Sex and Gender Information Value Date Recorded Sex Assigned at Not on file Legal Sex Female 12:47 AM BOOKING SUPERVISOR Gender Identity Not on file Sexual [...] 11/15/2024 1:46 AM CDT Plan of Treatment Health Maintenance Due Date Last Done Comments Colon Cancer Screening-Colonoscopy 1978 Dilated Eye Exam 1978 Foot Exam 1978 Hepatitis B Screening 1996 Regular Well Visit/Exam 18-64 1996 Hemoglobin A1C 07/17/2024 01/16/2024, 10/03, 02/15/2023, Additional history exists Depression Screening 09/16/2024 09/16/2023, 09/16/2023, 02/14/2023 Pneumococcal vaccine <65 (1 of 2 - PCV) 12/31/2024 Postponed from 1997 (Patient declined, but will receive in the future) Albumin Creatinine Ratio, Urine 01/15/2025 01/16/2024, 10/18/2023 Lipid Panel 01/15/2025 01/16/2024, 02/02, 12/15/2019, Additional history exists Influenza Vaccine (Season Ended) 2025 eGFR 09/29/2025 09/29/2024, 02/2025, 08/10/2024, Additional history exists Breast Cancer Screening-Mammogram 11/02/2025 11/02/2024, 10/31/2023, 10/31/2023, Additional history exists DTaP/Tdap/Td Vaccine (3 - [...] of breast EGFR STAT 09/29/2024 9:56 PM BOOKING SUPERVISOR DIFFERENTIAL AUTO STAT 09/29/2024 9:5 6 PM BOOKING SUPERVISOR COMPREHENSIVE METABOLIC PANEL STAT 09/29/2024 9:56 PM BOOKING SUPERVISOR CBC WITH AUTO DIFFERENTIAL STAT 09/29/2024 9:56 PM BOOKING SUPERVISOR XR CHEST PA LATERAL 2 VIEWS Schedule Routine, Read Routine (OP Routine) 08/28/2024 3:44 PM BOOKING SUPERVISOR Acute bronchitis, unspecified organism HEMOGLOBIN A1C Routine [...] Re sult * eGFR (09/29/2024 9:56 PM BOOKING SUPERVISOR) eGFR >90 >=60 mL/min/1. 73 m2 Comment: [...] last reviewed 2021. Blood 09/29/2024 9:56 PM BOOKING SUPERVISOR 09/29/2024 9:57 PM BOOKING SUPERVISOR us Cristina Veras MD LAB BLOOD ORDERABLES Final Resul t [facility]) [address] [place] [place] [address] * Differential, auto (09/29/2024 9:56 PM BOOKING SUPERVISOR) Neutrophil abs 3.2 1.5 - 6.5 K/cumm [...] revised on 2017. Blood 09/29/2024 9:56 PM BOOKING SUPERVISOR 09/29/2024 9:57 PM BOOKING SUPERVISOR us Cristina Veras MD LAB BLOOD ORDERABLES Final Resul t [facility] ([place]) [address] [place] [address] * (ABNORMAL) CBC with auto differential (09/29/2024 9:56 PM BOOKING SUPERVISOR) WBC 5.9 3.8 - 9.9 K/cumm Hgb [...] [facility]) Blood 09/29/2024 9:56 PM BOOKING SUPERVISOR 09/29/2024 9:57 PM BOOKING SUPERVISOR us Cristina Veras MD LAB BLOOD ORDERABLES Final Resul t [facility] ([place]) [address] [facility] [place] [address] * Comprehensive metabolic panel (09/29/2024 9:56 PM BOOKING SUPERVISOR) Sodium 137 135 - 145 mmol/L Potassium, [...] Hemolyzed S pecimen Blood 09/29/2024 9:56 PM BOOKING SUPERVISOR 09/29/2024 9:57 PM BOOKING SUPERVISOR us Cristina Veras MD LAB BLOOD ORDERABLES Final Resul t [facility] ([place]) [address] [place] [address] 033 * XR Chest PA Lateral 2 Views (08/28/2024 3:44 PM BOOKING SUPERVISOR) Anatomical Region Laterality Modality Body, Chest N/A Computed Radiogr aphy 08/30/2024 11:0 7 PM BOOKING SUPERVISOR Narrative 08/30/2024 11:08 PM BOOKING SUPERVISOR EXAM DESCRIPTION: XR CHEST PA LATERAL 2 [...] Jin Barrett M.D. KT: AMALIA Report ID: [id number] Reading Location: [id number] Procedure Note Jin Barrett MD - 08/30/2024 [...] Jin Barrett M.D. KT: KT Report ID: [id number] Reading Location: [id number] Result [facility] Sue Snow MD IMG XR PROCEDURES Final Resul t * Albumin Creatinine Ratio, Urine (01/16/2024 10:50 AM CDT) Albumin Ur <12.0 mg/L Comment: Interpretive Data No reference range established. Current interpretive data was last revised 2018. Creatinine Ur 143.7 mg/dL [facility] Comment: Interpretive Data No reference range established. Current interpretive data was last revised 2018. Albumin Creatinine Ratio, Ur <8 1 - 29 mg/g [facility] Urine 01/16/2024 10:5 0 AM CDT 01/16/2024 7:12 PM CDT Result [facility] Anna Cassidy NP LAB URINE ORDERABLES Final Re sult Performing Organization Address [facility] de Phone Number [facility] [address] [place] [address] * Hemoglobin A1c (01/16/2024 10:50 AM CDT) Pathologist [facility] Hgb A1C 5.3 4.0 - 5.6 % Estimated Average Glucose 105 mg/dL [facility] Comment: The ADA recommends reporting an estimated Average Glucose (eAG) with all Hemoglobin A1c results using the equation derived from a study of 507 normal and diabetic adults. Minority populations were underrepresented and children were not included. (Diabetes Care 31:3007-6025, 2008). The eAG is not equivalent to a fasting glucose. Blood 01/16/2024 10:5 0 AM CDT 01/16/2024 7:12 PM CDT Result [facility] Anna Cassidy NP LAB BLOOD ORDERABLES Final Re sult Performing Organization Address [facility]/[employer] de Phone Number [facility] [address] [place] [address] * (ABNORMAL) Lipid panel (01/16/2024 10:50 AM [...] on 2018. Triglycerides 256(H) <=149 mg/dL [facility] Comment: Interpretive Data Ages < or = [...] on 2018. Non-HDL Cholesterol 249 mg/dL [facility] Comment: Interpretive Data Ages < or = [...] CDT 01/16/2024 7:12 PM CDT Anna Cassidy DIRECT MARKETING MANAGER LAB BLOOD ORDERABLES Final Re sult [facility] [address] Department [place] [address] * Hepatitis panel, acute (05/16/2014 5:29 PM CDT) HepBsAg NONREACT NONREACTIVE 05/16/2014 6:50 PM CDT [facility] HISTORICAL RESULTS Comment: Siemens FavoeaurXP using AVRIL (chemiluminescent immunoassay) technology. NONREACTIVE: IgM antibodies to Hepatitis B Surface antigen not detected. REACTIVE: IgM antibodies to Hepatitis B Surface antigen detected. Reactive results will be confirmed by neutralization testing. HBsAb (immune status) NONREACT NONREACTIVE 05/16/2014 6:17 PM CDT [facility] HISTORICAL RESULTS Comment: Siemens FavoeaurXP using AVRIL (chemiluminescent immunoassay) technology. NONREACTIVE: IgM antibodies to Hepatitis B Surface antibody not detected. REACTIVE: IgM antibodies to Hepatitis B Surface antibody detected. Hep B core IgM NONREACT NONREACTIVE 4 7:07 PM CDT [facility] HISTORICAL RESULTS Comment: Siemens CentaurXP using AVRIL (chemiluminescent immunoassay) technology. NONREACTIVE: IgM antibodies to Hepatitis B Core antigen not detected. EQUIVOCAL: IgM antibodies to Hepatitis B Core antigen may or may not be present. Obtain a new specimen and retest. REACTIVE: IgM antibodies to Hepatitis B Core antigen detected. Hep A IgM NONREACT NONREACTIVE 05/16/2014 7:07 PM CDT [facility] HISTORICAL RESULTS Comment: Siemens CentaurXP using AVRIL (chemiluminescent immunoassay) technology. NONREACTIVE: IgM antibodies to Hepatitis A not detected. This does not exclude possibility of exposure to Hepatitis A or early acute infection. EQUIVOCAL:IgM antibodies to Hepatitis A may or may not be present. Suggest recollection and retest. REACTIVE: Antibodies to Hepatitis A detected. Hep C Ab NONREACT NONREACTIVE 05/16/2014 7:[address] [facility] HISTORICAL RESULTS Comment: Siemens CentaurXP using AVRIL [...] 5:29 PM CDT 05/16/2014 5:36 PM CDT us Nabor Truong MD LAB MICROBIOLOGY - GENERAL O RDERABLES Final Result [facility] HISTORICAL RESULTS from Last 3 Months or Most Recently Relevant to Health Maintenance Insurance [facility] Advance Directives For more information, please contact: [phone] Documents on File Type Date Recorded Patient Resident In Diagnostic Radiology Expl anation ADVANCE DIRECTIVE 04/29/2023 4:00 PM DNR ADVANCE DIRECTIVE 04/26/2023 4:27 PM POWER OF THERMOFORMING OPERATOR-MEDICAL Power of Architectural Coating Finisher 04/24/2023 8:00 AM * Full Code (Latest [...] 12:32 PM 04/26/2023 12:17 AM Care Teams Refrigerating Engineer Relationship Specialty Start Date End Date Eli Abbott MD [address] [place] [address] PCP - General Obstetrics and Gynecology 10/07/24 [place] [address] [address] Consulting Physician Gastroenterology 12/22/22 [place] [address] [address] [address] Consulting Physician Neurosurgery 09/16/23 Dalton Fragoso MD [address] [place] [address] Referring Physician Psychiatry & Neurology 09/16/23
--- OUTSIDE RECORDS SUMMARY | 2024-11-25 21:30 | XMS_ITS | Encounter Summary ---
Author Organization [facility] Address [address] [place] [address] Phone Care Team Providers Care Professor Of Genetics Name Role Phone Jn Polo PAC Unavailable [phone] Eli Abbott MD Primary Care Provider [phone] Encounter Details Date Type Department Care Team (Late st Contact Info) Description 11/03/2024 Results Follow-Up [facility] - Orthopedic Surgery [facility] [address] [place] [phone] Shirley Corral, [facility] MRI RIGHT SHOULDER WO CONTRAST Social History Tobacco Use Types Packs/Day Years Used Date Smoking Tobacco: Every Day Cigarettes 0.5 35 Smokeless Tobacco: Never Alcohol Use Standard Drinks/Week [...] on filedocumented in this encounter Care Teams Professor Of Genetics Relationship Specialty Start Date End Date Eli Abbott MD [address] [place] [address] PCP - General Family Medicine 09/03/24 Jn Polo PAC [address] [place] [address] Physician Building Analyst/Supervisor Physician Building Analyst/Supervisor 07/13/24 documented as of this encounter
--- OUTSIDE RECORDS SUMMARY | 2024-11-25 21:30 | XMS_ITS | Clinical Summary ---
Author Organization [facility] Address [address] [place] [address] Phone Care Team Providers Care Cash Applications Coordinator Name Role Phone Brett Chávez MD Primary [...] Encounters Date Type Department Care Team Description 11/03/2024 External Device Data [facility] ABSTRACTION Provider, Abstract 10/21/2024 External Device Data [facility]STRACTION Provider, Abstract 10/21/2024 External Device Data [facility] [place]STRACTION Provider, Abstract 10/13/2024 External Device Data [facility] Provider, Abstract 10/13/2024 External Device Data [facility] Provider, Abstract 10/12/2024 External Device Data [facility] [place] Provider, [...] on file Legal Sex Female 2:47 AM EQUIPMENT OPERATOR WAGE HAND Gender Identity Not on file Sexual Orientation [...] of 3 - 19+ 3-dose series) 1997 FIT-DNA Q 3 years 2023 FIT/FOBT Q 1 year 2023 Flex Sig/CT Colonography Q 5 years 2023 INFLUENZA VACCINE (#1) 2024 DIABETES HBA1C Q 6 MONTHS 04/16/20242023, 04/03/2020, 03/24/2013 BREAST CANCER SCREENING 10/30/2024 10/31/19 24, 10/31/2023, 06/02/2013 DTAP/TDAP/TD VACCINES (2 - T d [...] 5.8(H) <5.7 % 04/04/2020 10:39 AM CDT [facility] EST. AVG GLUCOSE, A1C 120 mg/dL 04/04/2020 10:39 AM CDT [facility] [place] [facility] Blood Venipuncture / Unknown 04/03/2020 11:02 PM CDT 04/03/2020 11:06 PM CDT Narrative [facility] - 04/04/2020 10:39 AM CDT HGB A1C INTERPRETATION NORMAL: <5.7% PRE-DIABETES: 5.7 - 6.4% DIABETES: 6.5% OR GREATER Sol Solares NP CHEMISTRY ORDERABLES Final Resu lt [facility] [place] [facility] CLIA# [id number] [address] [place] [address] from Last 3 Months or Most Recently Relevant to Health Maintenance Insurance [employer] [place] Advance Directives For more information, please contact: [phone] * Full Code (Latest Code Status on File) Date Activated Date Inactivated Comments 04/04/2020 5:25 AM 04/05/2020 1:27 AM * Full Code Date Activated Date Inactivated Comments 03/27/2013 2:24 PM 03/28/2013 7:44 PM * Full Code Date Activated Date Inactivated Comments 03/21/2013 4:36 AM 03/27/2013 2:24 PM Care Teams Cash Applications Coordinator Relationship Specialty Start Date End Date Brett Chávez MD [address] [place] [phone] PCP - General Family Practice 04/02/20
--- OUTSIDE RECORDS SUMMARY | 2024-11-25 21:30 | XMS_ITS ---
Author Organization [facility] Address [address] [place] [address] Phone Care Team Providers Care Pet Trainer Name Role Phone Jn Polo PAC Unavailable [phone] Eli Abbott MD Primary Care Provider [phone] [facility] Chronic Condition Monitoring Status:Enrolled (Active) Start date:07/17/2023 Enrollment date:07/18/2023 Current support & services provided:Asthma Management, COPD Management Related social drivers of health:Intimate Partner Violence, Social Connections, Alcohol Use, Tobacco Use, Financial Resource Strain,Depression, Stress, Physical Activity, Food Insecurity, Transportation Needs, Housing Stability, Utilities Continued Care and Services Coordination
[2024-11-25 21:48] VITALS: PULSE 90; O2SAT 100
[2024-11-25 21:50] VITALS: BP 121/88; PULSE 86; RESP 20; O2SAT 95
[2024-11-25] MEDS: ASPIRIN 81 MG CHEWABLE TABLET 324 MG PO (21:50)
--- OUTSIDE RECORDS SUMMARY | 2024-11-25 22:00 | XMS_ITS | Clinical Summary ---
Author Organization [facility] Address [address] [place] [address] Care Team Providers Care Auto Garage Mechanic Name Role Phone Brett Chávez MD Primary Care Provider [phone] Brett Chávez MD Unavailable [phone] Allergies Active Allergy Reactions Criticality Noted [...] Colonoscopy (10 Years) 1978 Annual Physical 1981 Hepatitis C 1996 Hepatitis B Vaccines (1 of 3 - 19+ 3-dose series) 1997 Pneumococcal Vaccine: Pediat rics (0 to 5 Years) and At-Risk Patients (6 to 49 Years) (1 of 2 - PCV) 1997 Mammogram Screening 2018 COVID-19 Vaccine (2023-2 5 season) 2024 DTaP, Tdap and Td Vaccines ( [...] age to complete this topic Insurance [employer] Member Subscriber Plan / Payer (Ef fective 2018-Present) Name:Tatiana Mcpherson Relation to Subscriber:Self Name:Tatiana Mcpherson Payer ID:[id number] (NAIC) Type:Not on file [address] Care Teams Auto Garage Mechanic Relationship Specialty Start Date End Date Brett Chávez MD [address] [facility], [facility] [address] [place] [address] PCP - General FAMILY PRACTICE 02/20/22 Brett Chávez MD [address] [facility], [employer] [address] [place] [address] FAMILY PRACTICE 02/20/22
--- OUTSIDE RECORDS SUMMARY | 2024-11-25 22:00 | XMS_ITS | Encounter Summary ---
Author Organization [facility] Address [address] [place] [place] [address] Care Team Providers Care Accounts Receivable Bookkeeper Name Role Phone Ally Chambers RN Unavailable [phone] Eli Abbott MD Primary Care Provider [phone] Reason for Visit * Reason Onset Date Comments Medication Management 11/24/2024 Encounter Details Date Type Department Care Team (Late st Contact Info) Description 11/24/2024 Telephone [facility] - Neurology [address] [place] [address] Charanjit Jackson MD [address] [place] [address] [place] [address] Medication Management Social History Tobacco [...] Recorded Patient Health Questionnaire-2 Score 0 04/27/2024 [facility] of Occupat ional Health - [...] or slept in a correction (including now)? Patient declined 12/13/2023 Comments No Sex and Gender Information Value Date Recorded Sex Assigned at Not on file Legal Sex Female 6:21 AM CREDIT COLLECTIONS REP Gender Identity Not on file Sexual Orientation [...] was never received. Patient Call Back Number: [phone] Called patient's pharmacy, confirmed they received script. Requested a fill for patient and they said it will be ready in the next 2 hours. Called patient to let her know, no further questions. documented in this encounter Plan of Treatment Upcoming Encounters Date Type Department Care Team (Late st Contact Info) Description 11/27/2024 10:30 AM CDT Appointment [facility] EEG/EMG [address] [place] [address] Charanjit Jackson MD [address] [place] [address] [place] [address] 03/03/2025 4:00 PM CDT [facility] [address] [place] [address], [place] [address] Francie Napoles PA-C [address] [place] [address] 03/10/2025 2:30 PM CDT Office Visit [facility] - Neurology [address] [place] [address], [place] [address] Charanjit Jackson MD [address] [place] [address] [place] [address] documented as of this encounter Visit Diagnoses Not on filedocumented in this encounter Care Teams Accounts Receivable Bookkeeper Relationship Specialty Start Date End Date Eli Abbott MD [address] [place] [address] PCP - General Family Medicine 11/24/24 Ally Chambers, RN Purchase Analyst 09/12/16 documented as of this encounter
--- OUTSIDE RECORDS SUMMARY | 2024-11-25 22:00 | XMS_ITS | Encounter Summary ---
Author Organization [facility] Address [address] [facility] [place] [address] Care Team Providers Care Roller Machine Operator Name Role Phone Ally Chambers RN Unavailable [phone] Eli Abbott MD Primary Care Provider [phone] Reason for Visit * Radiology Services (Routine) - Closed Specialty Diagnoses / Procedures Referred By Johana t Referred To Contact MRI Diagnoses Post traumatic epilepsy (HCC) Procedures MRI Brain Wo Contrast Charanjit Jackson MD [address] [facility] 1L [place] [address] Phone: tel: fax: [facility] MRI [address] [place] [address] Phone: tel: fax: Referral ID Status Reason Start Date Expiration Date Visits Re quested Visits Authorized [id number] Closed 11/13/2024 02/11/2025 1 1 Encounter Details Date Type Department Care Team (Latest Contact Info) Description 11/24/2024 7:30 AM CDT - 11/24/2024 8:20 AM CDT Hospital Encounter [facility] MRI [address] [place] [address] Charanjit Jackson MD [address] [facility] 1L [place] [address] Discharge Disposition: Home or Self [...] Recorded Patient Health Questionnaire-2 Score 0 04/27/2024 [facility] of Occupat ional [facility] - Occupational Stress Questionnaire Answer Date [...] on file Legal Sex Female 6:21 AM ORDERLY Gender Identity Not on file Sexual Orientation [...] MG/0.1ML nasal sprayIndications :Post traumatic epilepsy (HCC) Stanley 0.1 mL into the nose as needed [...] 09/19/2024 vitamin D, ergocalciferol, (Drisdol) 1.25 MG (87423 UT) capsule Take 1 (one) capsule by mouth every 30 days 01/17/2024 documented as of this encounter Plan of Treatment Upcoming Encounters Date Type Department Care Team (Late st Contact Info) Description 11/27/2024 10:30 AM CDT Appointment [facility] EEG/EMG [address] [place] [phone] Charanjit Jackson MD [address] [place] [address] 03/03/2025 4:00 PM CDT Office Visit [facility] - Neurology [address] [place] [address], [place] [address] Francie Napoles PA-C [address] [place] [address] 03/10/2025 2:30 PM CDT Office Visit [facility] - Neurology [address] [place] [address], [place] [address] Charanjit Jackson MD [address] [place] [address] [place] [address] Pending Results Name Type Priority Associated Diagnoses Date /Time MRI Brain Wo Contrast Imaging Routine Post traumatic epilepsy (HCC) 11/24/2024 8:48 AM CDT documented as of this encounter Visit Diagnoses Diagnosis 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
--- OUTSIDE RECORDS SUMMARY | 2024-11-25 22:00 | XMS_ITS | Encounter Summary ---
Author Organization [employer] Address [address] [place] [address] Care Team Providers Care Agronomy Technician Name Role Phone Brett Chávez MD Primary [...] on file Legal Sex Female 2:47 AM PERL DEVELOPER Gender Identity Not on file Sexual Orientation [...] documented as of this encounter Care Teams Agronomy Technician Relationship Specialty Start Date End Date Brett Chávez MD [address] [place] [phone] PCP - General Family Practice 04/02/20 documented as of this encounter
--- OUTSIDE RECORDS SUMMARY | 2024-11-25 22:00 | XMS_ITS | Encounter Summary ---
Author Organization [facility] Address [address] [facility] [place] [address] Care Team Providers Care Board Certified Behavioral Analyst Name Role Phone Ally Chambers RN Unavailable [phone] Eli Abbott MD Primary Care Provider [phone] Encounter Details Date Type Department Care Team (Late st Contact Info) Description 11/24/2024 Telephone [facility] - Neurology [address] [place] [address], [place] [address] Charanjit Jackson MD [address] [place] [address] Social History Tobacco Use Types Packs/Day [...] Recorded Patient Health Questionnaire-2 Score 0 04/27/2024 [facility] of Occupat ional [facility] - Occupational Stress Questionnaire Answer Date [...] or slept in a long-term (including now)? Patient declined 12/13/2023 Comments No Sex and Gender Information Value Date Recorded Sex Assigned at Not on file Legal Sex Female 6:21 AM LUNCHROOM FOOD SERVICE SUPERVISOR Gender Identity Not on file Sexual [...] was never received. Patient Call Back Number: [phone] documented in this encounter Plan of Treatment Upcoming Encounters Date Type Department Care Team (Late st Contact Info) Description 11/27/2024 10:30 AM CDT Appointment [facility] EEG/EMG [address] [place] [address] Charanjit Jackson MD [address] [place] [address] 1[address] [place] [address] 03/03/2025 4:00 PM CDT Office Visit [facility] Neurology [address] [place] [address] Francie Napoles PA-C [address] [place] [address] 03/10/2025 2:30 PM CDT Office Visit [facility] Neurology [address] [place] [phone] Charanjit Jackson MD [address] [place] [address] [address] [place] [address] documented as of this encounter Visit Diagnoses Not on filedocumented in this encounter Care Teams Board Certified Behavioral Analyst Relationship Specialty Start Date End Date Eli Abbott MD [address] [place] [address] PCP - General Family Medicine 11/24/24 Ally Chambers, RN Track Liner Operator 09/12/16 documented as of this encounter
--- OUTSIDE RECORDS SUMMARY | 2024-11-25 22:00 | XMS_ITS | Encounter Summary ---
Author Organization [employer] Address [address] [place] [address] Care Team Providers Care Credentials Specialist Name Role Phone Brett Chávez MD Primary Care Provider + Encounter Details Date Type Department Care Team (Late st Contact Info) Description 06/07/2003 Outpatient Historical [facility] Rodo Ann MD [address] [place] [address] [place] [address] Er, Authorized P NO ADDRESS ON FILE DEPRESSIVE DISORDER NEC (Primary Dx) Social History Tobacco Use Types Packs/Day Years Used Date Smoking Tobacco: Never Assessed Comments Unknown Sex and Gender Information Value Date Recorded Sex Assigned at Not on file Legal Sex Female 2:47 AM LEAD VULCANIZING OPERATOR Gender Identity Not on file Sexual [...] documented as of this encounter Care Teams Credentials Specialist Relationship Specialty Start Date End Date Brett Chávez MD [address] [address] PCP - General Family Practice 04/02/20 documented as of this encounter
--- OUTSIDE RECORDS SUMMARY | 2024-11-25 22:00 | XMS_ITS | Encounter Summary ---
Author Organization [facility] Address [address] [place] [address] Care Team Providers Care Lock Corner Machine Operator Name Role Phone Ally Chambers RN Unavailable [phone] Eli Abbott MD Primary Care Provider [phone] Encounter Details Date Type Department Care Team [...] Health Questionnaire-2 Score 0 04/27/2024 [facility] of Occupat ional Health - Occupational Stress [...] a intermediate (including now)? Patient declined 12/13/2023 Comments No Sex and Gender Information Value Date Recorded Sex Assigned at Not on file Legal Sex Female 6:21 AM TRAIN CLERK Gender Identity Not on file Sexual Orientation [...] Description 11/27/2024 10:30 AM CDT Appointment [facility] EEG/EMG [address] [place] [address] [place] [address] [place] [address] [address] [place] [phone] 03/03/2025 4:00 PM CDT Office Visit [facility] - Neurology [address] [place] [phone] Francie Napoles PA-C [address] [place] [address] 03/10/2025 2:30 PM CDT Office Visit [facility] - Neurology [address] [place] [address] Charanjit Jackson MD [address] [place] [address] [address] [address] documented as of this encounter Visit Diagnoses Not on filedocumented in this encounter Care Teams Lock Corner Machine Operator Relationship Specialty Start Date End Date Eli Abbott MD [address] [place] [phone] PCP - General Family Medicine 11/24/24 Ally Chambers, RN Clinical Cytopathologist 09/12/16 documented as of this encounter
--- OUTSIDE RECORDS SUMMARY | 2024-11-25 22:00 | XMS_ITS | Encounter Summary ---
Author Organization [facility] Address [address] [place] [address] Phone Care Team Providers Care Spring Machine Operator Name Role Phone Jn Polo PAC Unavailable [phone] Eli Abbott MD Primary Care Provider [phone] Encounter Details Date Type Department Care Team (Late st Contact Info) Description 11/03/2024 Results Follow-Up [facility] Group - Orthopedic Surgery [facility] [address] [place] [phone] Shirley Corral, [facility] MRI RIGHT SHOULDER WO CONTRAST Social History [...] on filedocumented in this encounter Care Teams Spring Machine Operator Relationship Specialty Start Date End Date Eli Abbott MD [address] [place] [address] PCP - General Family Medicine 09/03/24 Jn Polo PAC [address] [place] [address] Physician Air Transportation Provider Physician Air Transportation Provider 07/13/24 documented as of this encounter
--- OUTSIDE RECORDS SUMMARY | 2024-11-25 22:01 | XMS_ITS | Encounter Summary ---
Author Organization [facility] Address [address] [facility] [address] Care Team Providers Care Electric Welder Name Role Phone Ryees, Ally Dunn RN Unavailable [phone] Brett Chávez MD Primary Care Provider [phone] Eli Abbott MD Primary Care Provider [phone] Reason for Visit * Reason Onset Date Comments MEDICATION REFILL 01/28/2024 Encounter Details Date Type Department Care Team (Late st Contact Info) Description 01/28/2024 Refill [facility] - Infectious Disease [address] [place] [address], [place] [phone] Bernadette Watson MD [address] [place] [address] [place] [address] MEDICATION REFILL Social History Tobacco Use Types [...] Recorded Patient Health Questionnaire-2 Score 0 01/10/2024 [facility] of Occupat ional Health - Occupational Stress [...] or slept in a penitentiary (including now)? Patient declined 12/13/2023 Comments No Sex and Gender Information Value Date Recorded Sex Assigned at Not on file Legal Sex Female 6:21 AM NUTRITIONAL SERVICES COOK Gender Identity Not on file Sexual Orientation [...] Info) Description 11/27/2024 10:30 AM CDT Appointment [facility] EEG/EMG [address] [place] [phone] Charanjit Jackson MD [address] [place] [address] [place] [phone] 03/03/2025 4:00 PM CDT Office Visit [facility] - Neurology [address] [place] [address], [facility] [place] [phone] Francie Napoles PA-C [address] [place] [address] 03/10/2025 2:30 PM CDT Office Visit [facility] - Neurology [address] [facility], [place] [phone] Charanjit Jackson MD [address] [place] [address] [address] [place] [address] documented as of this encounter Visit Diagnoses Diagnosis Surgical site infection Lumbar pain Lumbago documented in this encounter Additional Health Concerns Infection Onset Date Last Indicated Resolved Time COVID-19 Under Investigation 10/08/2024 10/08/2024 10/08/2024 7:57 PM NUTRITIONAL SERVICES COOK documented as of this encounter Care Teams Electric Welder Relationship Specialty Start Date End Date Brett Chávez MD [address] [place] [phone] PCP - General 08/23/22 11/23/24 Eli Abbott MD [address] [address] PCP - General Family Medicine 11/24/24 Ally Chambers, RN Senior Technologist 09/12/16 documented as of this encounter
--- OUTSIDE RECORDS SUMMARY | 2024-11-25 22:01 | XMS_ITS | Clinical Summary ---
Author Organization [facility] Address [address] [place] [address] Phone Care Team Providers Care Seasoning Mixer Name Role Phone Brett Chávez MD Primary [...] on file Legal Sex Female 2:47 AM TRAPPER BIRD Gender Identity Not on file Sexual Orientation [...] 5.8(H) <5.7 % 04/04/2020 10:39 AM CDT [facility] EST. AVG GLUCOSE, A1C 120 mg/dL 04/04/2020 10:39 AM CDT [facility] [employer] [facility] Blood Venipuncture / Unknown 04/03/2020 11:02 PM CDT 04/03/2020 11:06 PM CDT Narrative [facility] - 04/04/2020 10:39 AM CDT HGB A1C INTERPRETATION NORMAL: <5.7% PRE-DIABETES: 5.7 - 6.4% DIABETES: 6.5% OR GREATER Sol Solares NP CHEMISTRY ORDERABLES Final Resu lt [facility] [employer] [facility] CLIA# [id number] [address] [place] [address] from Last 3 Months or Most Recently Relevant to Health Maintenance Insurance [employer] [place] Advance Directives For more information, please contact: [phone] * Full Code (Latest Code Status on File) Date Activated Date Inactivated Comments 04/04/2020 5:25 AM 04/05/2020 1:27 AM * Full Code Date Activated Date Inactivated Comments 03/27/2013 2:24 PM 03/28/2013 7:44 PM * Full Code Date Activated Date Inactivated Comments 03/21/2013 4:36 AM 03/27/2013 2:24 PM Care Teams Seasoning Mixer Relationship Specialty Start Date End Date Brett Chávez MD [address] [place] [phone] PCP - General Family Practice 04/02/20
--- OUTSIDE RECORDS SUMMARY | 2024-11-25 22:01 | XMS_ITS | Clinical Summary ---
Author Organization [facility] Address [address] [facility] [place] [address] Care Team Providers Care Poolroom/Poolhall Manager Name Role Phone Ally Chambers RN Unavailable [phone] Eli Abbott MD Primary Care Provider [phone] Source Comments [facility],non-owned Affiliates and Associated Physician Practices is amultiple site organization consisting of ambulatory clinics and hospital sitesin [place], [place], [place] and [place]. This disclosure is being madepursuant to the Care Everywhere program and may not contain all information available regarding this patient. Last updated 18.[facility] Allergies Active Allergy Reactions Criticality Noted Date [...] vitamin D, ergocalciferol , (Drisdol) 1.25 MG (37429 UT) capsule Take 1 (one) capsule by [...] MG/0.1ML nasal sprayIndicatio ns:Post traumatic epilepsy (HCC) [place] 0.1 mL into the nose as needed [...] nausea 12/24/2023 PICC (peripherally inserted central catheter) [facility] 12/16/2023 Lumbar pain 12/12/2023 Abscess after procedure 12/12/2023 Seizures Anxiety Encounters Date Type Department Care Team Description 11/24/2024 7:30 AM CDT - 11/24/2024 8:20 AM CDT Hospital Encounter [facility] MRI [address] [place] [address] Charanjit Jackson MD Discharge Disposition: Home or Self Care 11/24/2024 Telephone [facility] - Neurology [address] [place] [phone] Charanjit Jackson MD Medication Management 11/24/2024 Telephone [facility] - Neurology [address] [place] [phone] Charanjit Jackson MD 11/24/2024 Travel 11/13/2024 10:59 PM CDT - 11/14/2024 1:53 AM T Emergency [facility] [address] [place] [phone] Gilmar Morrow MD Severe itching; Pain of both eyes; Blurry vision Discharge Disposition: Left Against Medical Advice/Discontinued Care 11/13/2024 Travel 11/12/2024 11:34 PM CDT - 11/13/2024 2:36 AM T Emergency [facility] [address] [place] [phone] Lissette Steele MD Dizziness; Near syncope; History of cardiac arrhythmia Discharge Disposition: Home or Self Care 11/12/2024 Travel 10/21/2024 2:00 PM CDT Office Visit [facility] - Neurology [address] [place] [phone] Charanjit Jackson MD Post traumatic epilepsy (Primary Dx) 10/21/2024 Travel 10/08/2024 5:40 PM [facility] - 10/09/2024 5:57 AM [facility] Emergency [facility] [address] [place] [phone] Bronson Shaw MD Mayer, Joshua C, DO Hematemesis with nausea (Primary Dx); History of Janell-en-Y gastric bypass; History of peptic ulcer disease; Upper GI bleed Discharge Disposition: Left Against Medical Advice/Discontinued Care 10/08/2024 Travel 09/19/2024 7:35 PM CERTIFIED FIRE INVESTIGATOR - 09/19/2024 8:23 PM [facility] Emergency [facility] [address] [place] [phone] Christiano Otto MD Left hip pain; Fall, initial encounter; Musculoskeletal pain Discharge Disposition: Home or Self Care 09/19/2024 Travel 09/14/2024 11:30 AM CERTIFIED FIRE INVESTIGATOR Office Visit [facility] - Neurosurgery [address] [place] [phone] Fahad Monzon MD Chronic bilateral low back [...] Recorded Patient Health Questionnaire-2 Score 0 04/27/2024 [facility] - [...] place to sleep or slept in a snf (including now)? Patient declined 12/13/2023 Comments No Sex and Gender Information Value Date Recorded Sex Assigned at Not on file Legal Sex Female 6:21 AM CERTIFIED FIRE INVESTIGATOR Gender Identity Not on file Sexual Orientation [...] Info) Description 11/27/2024 10:30 AM CDT Appointment [facility] EEG/EMG [address] [place] [phone] Charanjit Jackson MD [address] [place] [address] [place] [address] 03/03/2025 4:00 PM CDT Office Visit [facility] - Neurology [address] [place] [phone] Francie Napoles PA-C [address] [place] [address] 03/10/2025 2:30 PM CDT Office Visit [facility] - Neurology [address] [place] [phone] Charanjit Jackson MD [address] [place] [phone] Health Maintenance Due Date Last Done Comments [...] W AUTO DIFFERENTIAL STAT 10/09/2024 2:19 AM CERTIFIED FIRE INVESTIGATOR MAGNESIUM BLOOD STAT 10/09/2024 2:19 AM CERTIFIED FIRE INVESTIGATOR PHOSPHORUS BLOOD STAT 10/09/2024 2:19 AM CERTIFIED FIRE INVESTIGATOR BASIC METABOLIC PANEL (CALCIUM TOTAL) STAT 10/09/2024 2:19 AM CERTIFIED FIRE INVESTIGATOR CT NECK SOFT TISSUE W CONT STAT 10/08/2024 7:44 PM CERTIFIED FIRE INVESTIGATOR Hematemesis with nausea CT CHEST ABDOMEN PELVIS W CONT STAT 10/08/2024 7:44 PM CERTIFIED FIRE INVESTIGATOR Hematemesis with nausea HGB HCT PANEL STAT 10/08/2024 7:10 PM CERTIFIED FIRE INVESTIGATOR SARS-COV-2 (COVID-19)+INFLU A+B PCR RAPID STAT 10/08/2024 7:09 PM CERTIFIED FIRE INVESTIGATOR TYPE + SCREEN PANEL STAT 10/08/2024 3 :25 PM CERTIFIED FIRE INVESTIGATOR PT-INR [facility] STAT 10/08/2024 3:25 PM CERTIFIED FIRE INVESTIGATOR COMPREHENSIVE METABOLIC PANEL STAT 10/08/2024 3:25 PM CERTIFIED FIRE INVESTIGATOR CBC W AUTO DIFFERENTIAL STAT 10/08/2024 3:25 PM CERTIFIED FIRE INVESTIGATOR XR KNEE RIGHT 3VW STAT 09/19/2024 7:4 8 PM CERTIFIED FIRE INVESTIGATOR Left hip pain XR PELVIS W LEFT HIP 2VW STAT 09/19/2024 7:47 PM CERTIFIED FIRE INVESTIGATOR Left hip pain CT CERVICAL SPINE WO CONTRAST STAT 09/19/2024 7:32 PM CERTIFIED FIRE INVESTIGATOR Fall, initial encounter CT THORACIC SPINE WO CONTRAST STAT 09/19/2024 7:32 PM CERTIFIED FIRE INVESTIGATOR Fall, initial encounter CT LUMBAR SPINE WO CONTRAST STAT 09/19/2024 7:32 PM CERTIFIED FIRE INVESTIGATOR Fall, initial encounter HELICOBACTER PYLORI ANTIGEN FECES Routine 09/02/2024 12:30 PM CERTIFIED FIRE INVESTIGATOR H. pylori infection HEPATITIS SCREEN ACUTE Routine [...] - 10.7 x10E9/L 11/14/2024 12:31 AM CDT [facility] RBC Count 4.04 3.90 - 5.20 x10E12/L 11/14/2024 12:31 AM CDT [facility] Hemoglobin 9.6(L) 11.9 - 15.8 g/dL 11/14/2024 12:31 AM [facility] Hematocrit 31.6(L) 34.8 - 46.1 % 11/14/2024 12:31 AM [facility] MCV 78.2(L) 80.0 - 98.0 fL 11/14/2024 12:31 AM [facility] MCH 23.8(L) 26.7 - 33.6 pg 11/14/2024 12:31 AM [facility] MCHC 30.4(L) 31.7 - 36.3 g/dL 11/14/2024 12:31 AM [facility] RDW-CV 17.2(H) 11.3 - 14.8 % 11/14/2024 12:31 AM [facility] Platelet Count 366 150 - 420 x10E9/L 11/14/2024 12:31 AM [facility] MPV 9.4 7.8 - 11.4 fL 11/14/2024 12:31 AM [facility] Neutrophil % 55.2 41.0 - 74.0 % 11/14/2024 12:31 AM [facility] Lymphocyte % 33.1 17.0 - 47.0 % 11/14/2024 12:31 AM [facility] Monocyte % 7.3 3.0 - 11.0 % 11/14/2024 12:31 AM [facility] Eosinophil % 3.4 0.0 - 7.0 % 11/14/2024 12:31 AM [facility] Basophil % 0.8 0.0 - 1.6 % 11/14/2024 12:31 AM [facility] Immature Granulocytes % 0.2 0.0 - 1.0 % 11/14/2024 12:31 AM [facility] Neutrophil Absolute 3.40 1.60 - 7.50 x10E9/L 11/14/2024 12:31 AM [facility] Lymphocyte Absolute 2.04 1.00 - 4.40 x10E9/L 11/14/2024 12:31 AM [facility] Monocyte Absolute 0.45 0.15 - 1.00 x10E9/L 11/14/2024 12:31 AM [facility] Eosinophil Absolute 0.21 0.00 - 0.60 x10E9/L 11/14/2024 12:31 AM [facility] Basophil Absolute 0.05 0.00 - 0.13 x10E9/L 11/14/2024 12:31 AM [facility] Blood BLOOD SPECIMEN / Unknown Venipuncture / Unknown 11/14/2024 12:18 AM CDT 11/14/2024 12:28 AM CDT us Gilmar Morrow MD LAB - HEMATOLOGY ORDERABLES Final Result [facility] [address] [place] [address], [facility] [phone] * (ABNORMAL) COMPREHENSIVE METABOLIC PANEL (11/14/2024 12:18 AM CDT) Only the most recent of3 resultswithin the time period is included. BUN 17 7 - 26 mg/dL 11/14/2024 12:53 AM [facility] Creatinine 0.66 0.56 - 0.96 mg/dL 11/14/2024 12:53 AM [facility] Sodium 140 136 - 145 mmol/L 11/14/2024 12:53 AM [facility] Potassium 4.4 3.5 - 4.5 mmol/L 11/14/2024 12:53 AM [facility] Chloride 108(H) 98 - 107 mmol/L 11/14/2024 12:53 AM [facility] CO2 19(L) 22 - 29 mmol/L 11/14/2024 12:53 AM [facility] Glucose 91 70 - 99 mg/dL 11/14/2024 12:53 AM [facility] Calcium 9.0 8.4 - 10.2 mg/dL 11/14/2024 12:53 AM [facility] Protein Total 6.7 6.0 - 8.3 g/dL 11/14/2024 12:53 AM [facility] Albumin 3.7 3.4 - 5.0 g/dL 11/14/2024 12:53 AM [facility] Bilirubin Total 0.1(L) 0.2 - 1.2 mg/dL 11/14/2024 12:53 AM [facility] Alkaline Phosphatase 99 40 - 150 U/L 11/14/2024 12:53 AM [facility] ALT 15 5 - 55 U/L 11/14/2024 12:53 AM [facility] AST 18 5 - 34 U/L 11/14/2024 12:53 AM [facility] Anion Gap 13 6 - 16 11/14/2024 12:53 AM [facility] BUN/Creatinine Ratio 26(H) 7 - 23 11/14/2024 12:53 AM [facility] Osmolality Calculated 291 275 - 295 mOsm/kg 11/14/2024 12:53 AM [facility] Albumin/Globulin Ratio 1.2 1.1 - 2.3 11/14/2024 12:53 AM [facility] eGFR by CKD-EPI >90 >=90 mL/min/1.7 3 m2 11/14/2024 12:53 AM [facility] Blood BLOOD SPECIMEN / Unknown Venipuncture / Unknown 11/14/2024 12:18 AM CDT 11/14/2024 12:26 AM CDT Gilmar Morrow MD LAB - CHEMISTRY ORDERABLES F inal Result [facility] [address] [place] [address], [facility] [phone] * XR CHEST 2VW (11/12/2024 9:15 PM CDT) Anatomical Region Laterality Modality Chest Digital Radiogra phy 11/12/2024 9:51 PM CDT Impressions 11/13/2024 8:59 AM CDT IMPRESSION: No acute pulmonary abnormality. > Dictated by Andrés Parham DO (Software Development Engineer), 11/12/2024 9:51 PM. IBritton MD have personally reviewed and interpreted this examination/study. > Interpreting Provider: Ustun Aydingoz, MD on 11/13/2024 8:59 AM Narrative 11/13/2024 8:59 AM CDT PROCEDURE: XR CHEST 2VW, DATE/TIME OF EXAM: 11/12/2024 9:17 PM, LOCATION [facility] INDICATION: R42: Dizziness ADDITIONAL CLINICAL INFORMATION: Ordering Provider Reason For Exam: syncope COMPARISON: Chest x-ray 01/07/2024 FINDINGS: There is no focal consolidation, pleural effusion, or pneumothorax. The cardiomediastinal silhouette is normal. The bony thorax is intact. Procedure Note Britton Gonzalez MD - 11/13/2024 PROCEDURE: XR CHEST 2VW, DATE/TIME OF EXAM: 11/12/2024 9:17 PM, LOCATION [facility] INDICATION: R42: Dizziness ADDITIONAL CLINICAL INFORMATION: Ordering Provider Reason For Exam: syncope COMPARISON: Chest x-ray 01/07/2024 FINDINGS: There is no focal consolidation, pleural effusion, or pneumothorax. The cardiomediastinal silhouette is normal. The bony thorax is intact. IMPRESSION: No acute pulmonary abnormality. > Dictated by Andrés Parham DO (Software Development Engineer), 11/12/2024 9:51 PM. I, Britton Gonzalez MD have personally reviewed and interpreted this examination/study. > Interpreting Provider: Britton Gonzalez MD on 11/13/2024 8:59 AM us Mikal Rosa PA-C DIAGNOSTIC IMAGING ORDERABLE S Final Result * MAGNESIUM BLOOD (11/12/2024 9:05 PM CDT) Only the most recent of2 resultswithin the time period is included. Magnesium 2.1 1.6 - 2.6 mg/dL 11/12/2024 9:42 PM CDT [facility] Blood BLOOD SPECIMEN / Unknown Venipuncture / Unknown 11/12/2024 9:05 PM CDT 11/12/2024 9:15 PM CDT us Mikal Rosa PA-C LAB - CHEMISTRY ORDERABLES F inal Result [facility] [address] [place] [address], [facility] [phone] * (ABNORMAL) BASIC METABOLIC PANEL (CALCIUM TOTAL) (10/09/2024 2:19 AM [facility]) BUN 9 7 - 26 mg/dL 10/09/2024 2:48 AM [facility] Creatinine 0.60 0.56 - 0.96 mg/dL 10/09/2024 2:48 AM [facility] Sodium 140 136 - 145 mmol/L 10/09/2024 2:48 AM [facility] Potassium 4.4 3.5 - 4.5 mmol/L 10/09/2024 2:48 AM [facility] Chloride 110(H) 98 - 107 mmol/L 10/09/2024 2:48 AM [facility] CO2 21(L) 22 - 29 mmol/L 10/09/2024 2:48 AM [facility] Glucose 104(H) 70 - 99 mg/dL 10/09/2024 2:48 AM [facility] Calcium 8.4 8.4 - 10.2 mg/dL 10/09/2024 2:48 AM [facility] Anion Gap 9 6 - 16 10/09/2024 2:48 AM [facility] BUN/Creatinine Ratio 15 7 - 23 10/09/2024 2:48 AM [facility] Osmolality Calculated 289 275 - 295 mOsm/kg 10/09/2024 2:48 AM [facility] eGFR by CKD-EPI >90 >=90 mL/min/1.7 3 m2 10/09/2024 2:48 AM [facility] Blood BLOOD SPECIMEN / Unknown Venipuncture / Unknown 10/09/2024 2:19 AM CERTIFIED FIRE INVESTIGATOR 10/09/2024 2:23 AM [facility] Nilesh Krause DO LAB - CHEMISTRY ORDERABLES Fin al Result Performing Organization Address City/[facility]/ZIP Co de Phone Number [facility] [address] [place] [address], [facility] [phone] * PHOSPHORUS BLOOD (10/09/2024 2:19 AM CERTIFIED FIRE INVESTIGATOR) Phosphorus 4.4 2.9 - 5.1 mg/dL 10/09/2024 2:48 AM CERTIFIED FIRE INVESTIGATOR [facility] Blood BLOOD SPECIMEN / Unknown Venipuncture / Unknown 10/09/2024 2:19 AM CERTIFIED FIRE INVESTIGATOR 10/09/2024 2:23 AM CERTIFIED FIRE INVESTIGATOR Nilesh Krause DO LAB - CHEMISTRY ORDERABLES Fin al Result [facility] [address] [place] [phone], [facility] [phone] * CT Chest Abdomen Pelvis W Cont (10/08/2024 7:44 PM CERTIFIED FIRE INVESTIGATOR) Anatomical Region Laterality Modality Chest, Abdomen, Pelvis Computed Tomography 10/08/2024 7:51 PM CERTIFIED FIRE INVESTIGATOR Impressions 10/08/2024 10:55 PM CERTIFIED FIRE INVESTIGATOR Impression: 1.Postoperative appearance of Janell-en-Y gastric bypass. [...] 10/08/2024 10:55 PM Narrative 10/08/2024 10:55 PM CERTIFIED FIRE INVESTIGATOR Procedure Information DATE: 10/08/2024 7:45 PM EXAMINATION: [...] interpreted this examination/study. > Interpreting Provider: Mamie Sacles MD on 0:55 PM us Bronson Shaw MD CT ORDERABLES Final R esult * CT Neck Soft Tissue W Cont (10/08/2024 7:44 PM CERTIFIED FIRE INVESTIGATOR) Anatomical Region Laterality Modality Head Computed Tomogra phy 10/08/2024 8:01 PM CERTIFIED FIRE INVESTIGATOR Impressions 10/08/2024 8:53 PM CERTIFIED FIRE INVESTIGATOR IMPRESSION: 1.No evidence of soft tissue swelling, mass or acute pathology in the neck. 2.There is no evidence of abscess, pneumomediastinum or soft tissue air. The report is dictated by Diana Real MD (resident in diagnostic radiology) Carlos Sewell MD have personally reviewed and interpreted this examination/study. > Interpreting Provider: Carlos Carrera MD on 10/08/2024 8:53 PM Narrative 10/08/2024 8:53 PM CERTIFIED FIRE INVESTIGATOR PROCEDURE: CT NECK SOFT TISSUE W CONT, DATE/TIME OF EXAM: 10/08/2024 7:45 PM, LOCATION [facility] INDICATION: R11.14: Bilious vomiting with nausea [...] CONT, DATE/TIME OF EXAM: 57:45 PM, LOCATION [facility] INDICATION: R11.14: Bilious vomiting with nausea [...] is dictated by Diana Real MD (resident in diagnostic radiology) I, Carlos Carrera MD have personally reviewed and interpreted this examination/study. > Interpreting Provider: Carlos Carrera MD on 10/08/2024 8:53 PM Bronson Shaw MD CT ORDERABLES Final R esult * (ABNORMAL) HGB HCT PANEL (10/08/2024 7:10 PM CERTIFIED FIRE INVESTIGATOR) Pathologist [facility] Hemoglobin 10.9(L) 11.9 - 15.8 g/dL 10/08/2024 7:21 PM CERTIFIED FIRE INVESTIGATOR [facility] Hematocrit 35.8 34.8 - 46.1 % 10/08/2024 7:21 PM CERTIFIED FIRE INVESTIGATOR [facility] Blood BLOOD SPECIMEN / Unknown Venipuncture / Unknown 10/08/2024 7:10 PM CERTIFIED FIRE INVESTIGATOR 10/08/2024 7:16 PM CERTIFIED FIRE INVESTIGATOR Bronson Shaw MD LAB - HEMATOLOGY ORDERA BLES Final Result [facility] [address] [place] [phone], [facility] [phone] * SARS-COV-2 (COVID-19)+INFLU A+B PCR RAPID (10/08/2024 7:09 PM CERTIFIED FIRE INVESTIGATOR) [facility] COVID-19 PCR Not detected Not detected 10/09/19 7:57 PM CERTIFIED FIRE INVESTIGATOR [facility] Influenza A Rapid [place] Not Detected Not Detected 10/08/2024 7:57 PM CERTIFIED FIRE INVESTIGATOR [facility] Influenza B [place] Rapid Not Detected Not Detected 10/08/2024 7:57 PM CERTIFIED FIRE INVESTIGATOR [facility] Microbiology SPECIMEN FROM NASOPHARYNGEAL STRUCTURE / Unknown Collection / Unknown 10/08/2024 7:09 PM CERTIFIED FIRE INVESTIGATOR 10/08/2024 7:14 PM CERTIFIED FIRE INVESTIGATOR Narrative [facility] - 10/08/2024 7:57 PM CERTIFIED FIRE INVESTIGATOR Influenza assay performed by [employer]. [...] acid amplification assay performance was validated by [facility]. This test has been authorized by the [...] LAB - MICROBIOLOGY SCOTT MANUEL Final Result [facility] [address] [place] [phone], [facility] [phone] * (ABNORMAL) PT-INR [facility] (10/08/2024 3:25 PM CERTIFIED FIRE INVESTIGATOR) PT 12.0(L) 12.1 - 14.8 Seconds 10/08/2024 3:58 PM CERTIFIED FIRE INVESTIGATOR [facility] INR 0.9 See Comment 10/08/2024 3:58 PM CERTIFIED FIRE INVESTIGATOR [facility] Comment:The suggested therap eutic range for standard coumadin (warfarin) therapy is an INR of 2.0-3.0. For high-risk patients (Mechanical Mitral Valve Prosthesis, etc.), the suggested prophylactic therapeutic range is an INR of 2.5-3.5. Blood BLOOD SPECIMEN / Unknown Venipuncture / Unknown 10/08/2024 3:25 PM CERTIFIED FIRE INVESTIGATOR 10/08/2024 3:33 PM CERTIFIED FIRE INVESTIGATOR Zeinab Taylor ENGRAVER APPRENTICE DECORATIVE-HOME HEALTH CARE COORDINATOR LAB - COAGULATION OR DERABLES Final Result Performing Organization Address City/[facility]/ZIP Co de Phone Number [facility] [address] [place] [address], [facility] [phone] * TYPE + SCREEN PANEL (10/08/2024 3:25 PM CERTIFIED FIRE INVESTIGATOR) Antibody Screen NEG 4:24 PM CERTIFIED FIRE INVESTIGATOR [facility] ABO Rh O POS 10/08/2024 4:24 PM CERTIFIED FIRE INVESTIGATOR [facility] Blood Bank BLOOD SPECIMEN / Unknown Venipuncture / Unknown 10/08/2024 3:25 PM CERTIFIED FIRE INVESTIGATOR 10/08/2024 3:40 PM CERTIFIED FIRE INVESTIGATOR Zeinab Taylor ENGRAVER APPRENTICE DECORATIVE-HOME HEALTH CARE COORDINATOR LAB - BLOOD BANK ORD ERABLES Final Result Performing Organization Address [facility]/ZIP Co de Phone Number [facility] [address] [place] [address], [facility] [phone] * XR Knee Right 3Vw (09/19/2024 7:48 PM CERTIFIED FIRE INVESTIGATOR) Anatomical Region Laterality Modality Lower Extremity Digital Radiogra phy 09/19/2024 7:44 PM CERTIFIED FIRE INVESTIGATOR Impressions 09/20/2024 8:25 AM CERTIFIED FIRE INVESTIGATOR IMPRESSION: No acute fracture or dislocation identified. Report dictated by Brennen Antoine DO (resident in diagnostic radiology). I, Lina Weinberg MD have personally reviewed and interpreted this examination/study. > Interpreting Provider: Lina Weinberg MD on 09/20/2024 8:25 AM Narrative 09/20/2024 8:25 AM CERTIFIED FIRE INVESTIGATOR PROCEDURE: XR KNEE RIGHT 3VW, DATE/TIME OF EXAM: 09/19/2024 7:16 PM, LOCATION [facility] INDICATION: M25.552: Left hip pain ADDITIONAL [...] DATE/TIME OF EXAM: 09/19/2024 7:16 PM, LOCATION [facility] INDICATION: M25.552: Left hip pain ADDITIONAL [...] Report dictated by Brennen Antoine DO (resident in diagnostic radiology). Lina Sewell MD have personally reviewed and interpreted this examination/study. > Interpreting Provider: Lina Weinberg MD on 09/20/2024 8:25 AM Zeinab Taylor ENGRAVER APPRENTICE DECORATIVE-HOME HEALTH CARE COORDINATOR DIAGNOSTIC IMAGING O RDERABLES Final Result * XR Pelvis W Left Hip 2Vw (09/19/2024 7:47 PM CERTIFIED FIRE INVESTIGATOR) Anatomical Region Laterality Modality Pelvis Digital Radiogra phy 09/19/2024 7:47 PM CERTIFIED FIRE INVESTIGATOR Impressions 09/20/2024 8:24 AM CERTIFIED FIRE INVESTIGATOR IMPRESSION: No acute fracture identified. Report dictated by Brennen Antoine DO (resident in diagnostic radiology). Lina Sewell MD have personally reviewed and interpreted this examination/study. > Interpreting Provider: Lina Weinberg MD on 09/20/2024 8:24 AM Narrative 09/20/2024 8:24 AM CERTIFIED FIRE INVESTIGATOR PROCEDURE: XR PELVIS W LEFT HIP 2VW, DATE/TIME OF EXAM: 09/19/2024 7:48 PM, LOCATION [facility] INDICATION: M25.552: Left hip pain ADDITIONAL [...] DATE/TIME OF EXAM: 09/19/2024 7:48 PM, LOCATION [facility] INDICATION: M25.552: Left hip pain ADDITIONAL [...] Report dictated by Brennen Antoine DO (resident in diagnostic radiology). ILina MD have personally reviewed and interpreted this examination/study. > Interpreting Provider: Lina Weinberg MD on 09/20/2024 8:24 AM Zeinab Taylor ENGRAVER APPRENTICE DECORATIVE-HOME HEALTH CARE COORDINATOR DIAGNOSTIC IMAGING O RDERABLES Final Result * CT Lumbar Spine Wo Contrast (09/19/2024 7:32 PM CERTIFIED FIRE INVESTIGATOR) Anatomical Region Laterality Modality Spine Computed Tomogra phy 09/19/2024 7:40 PM CERTIFIED FIRE INVESTIGATOR Impressions 09/19/2024 7:53 PM CERTIFIED FIRE INVESTIGATOR IMPRESSION: 1. No evidence of acute fracture in the cervical, thoracic, or lumbar spine. > Interpreting Provider: Jackie Olmedo MD on 09/19/2024 7:53 PM Narrative 09/19/2024 7:53 PM CERTIFIED FIRE INVESTIGATOR PROCEDURE: CT CERVICAL SPINE WO CONTRAST, CT THORACIC SPINE WO CONTRAST, CT LUMBAR SPINE WO CONTRAST, DATE/TIME OF EXAM: 09/19/2024 7:32 PM, LOCATION [facility] INDICATION: W19.XXXA: Fall, initial encounter ADDITIONAL [...] DATE/TIME OF EXAM: 09/19/2024 7:32 PM, LOCATION [facility] INDICATION: W19.XXXA: Fall, initial encounter ADDITIONAL [...] endplate compression fractures of the L2 and [id number] bodies with less than 25% height loss [...] on 09/19/2024 7:53 PM us Zeinab Taylor ENGRAVER APPRENTICE DECORATIVE-HOME HEALTH CARE COORDINATOR CT ORDERABLES Ashly charly Result * CT Thoracic Spine Wo Contrast (09/19/2024 7:32 PM CERTIFIED FIRE INVESTIGATOR) Anatomical Region Laterality Modality Spine Computed Tomogra phy 09/19/2024 7:40 PM CERTIFIED FIRE INVESTIGATOR Impressions 09/19/2024 7:53 PM CERTIFIED FIRE INVESTIGATOR IMPRESSION: 1. No evidence of acute fracture in the cervical, thoracic, or lumbar spine. > Interpreting Provider: Jackie Olmedo MD on 09/19/2024 7:53 PM Narrative 09/19/2024 7:53 PM CERTIFIED FIRE INVESTIGATOR PROCEDURE: CT CERVICAL SPINE WO CONTRAST, CT THORACIC SPINE WO CONTRAST, CT LUMBAR SPINE WO CONTRAST, DATE/TIME OF EXAM: 09/19/2024 7:32 PM, LOCATION [facility] INDICATION: W19.XXXA: Fall, initial encounter ADDITIONAL [...] DATE/TIME OF EXAM: 09/19/2024 7:32 PM, LOCATION [facility] INDICATION: W19.XXXA: Fall, initial encounter ADDITIONAL [...] endplate compression fractures of the L2 and [id number] bodies with less than 25% height loss [...] MD on 09/19/2024 7:53 PM Zeinab Taylor ENGRAVER APPRENTICE DECORATIVE-HOME HE[employer] C[employer] COORDINATOR CT ORDERABLES Ashly parks Result * CT Cervical Spine Wo Contrast (09/19/2024 7:32 PM CERTIFIED FIRE INVESTIGATOR) Anatomical Region Laterality Modality Spine Computed Tomogra phy 09/19/2024 7:40 PM CERTIFIED FIRE INVESTIGATOR Impressions 09/19/2024 7:53 PM CERTIFIED FIRE INVESTIGATOR IMPRESSION: 1. No evidence of acute fracture in the cervical, thoracic, or lumbar spine. > Interpreting Provider: Jackie Olmedo MD on 09/19/2024 7:53 PM Narrative 09/19/2024 7:53 PM CERTIFIED FIRE INVESTIGATOR PROCEDURE: CT CERVICAL SPINE WO CONTRAST, CT THORACIC SPINE WO CONTRAST, CT LUMBAR SPINE WO CONTRAST, DATE/TIME OF EXAM: 09/19/2024 7:32 PM, LOCATION [facility] INDICATION: W19.XXXA: Fall, initial encounter ADDITIONAL [...] DATE/TIME OF EXAM: 09/19/2024 7:32 PM, LOCATION [facility] INDICATION: W19.XXXA: Fall, initial encounter ADDITIONAL [...] endplate compression fractures of the L2 and B0kggqzidjz bodies with less than 25% height loss [...] MD on 09/19/2024 7:53 PM Zeinab Taylor ENGRAVER APPRENTICE DECORATIVE-[facility] CT ORDERABLES Ashly l Result * HELICOBACTER PYLORI ANTIGEN FECES (09/02/2024 12:30 PM CERTIFIED FIRE INVESTIGATOR) Pathologist [facility] Helicobacter pylori Antigen Stool Negative Negative 09/04/2024 1:46 PM CERTIFIED FIRE INVESTIGATOR [facility] ([facility]) Comment: Performed By: [facility] [address] [place] [address] Cp Bleacher Operator: Alfonso Mercado MD, PhD CLIA Number: [id number] Stool STOOL SPECIMEN / Unknown Collection / Unknown 09/02/2024 12:30 PM CERTIFIED FIRE INVESTIGATOR 09/02/2024 12:31 PM CERTIFIED FIRE INVESTIGATOR us Bernadette Watson MD LAB - MICROBIOLOGY ORDERABLES Fi nal Result [facility] ([facility]) [address] [place] [address] * HEPATITIS SCREEN ACUTE (05/07/2013 5:15 AM CDT) Pathologist [facility] Hepatitis A Virus Antibody IgM NONREACTIVE NONREACTIVE [facility] Hepatitis C Antibody NONREACTIVE NONREACTIVE [facility] Comment: Anti-HCV screen indicates no serologic evidence of past or current infection with Hepatitis C Virus. Patients with unexplained liver disease who are immunocompromised or suspected of having acute Hepatitis C infection may benefit from Nucleic Acid Test (SELWYN) for Hepatitis C Viral RNA to confirm Hepatitis C status. Hepatitis B Virus Surface Antigen NONREACTIVE NONREACTIVE [facility] Hepatitis B Core Virus Antibody IgM NONREACTIVE NONREACTIVE [facility] 05/07/2013 5:15 AM CDT 05/07/2013 5:57 AM CDT us Arnold Mireles MD LAB - CHEMISTRY ORDERABLES Fin al Result [address] [phone] from Last 3 Months or Most Recently Relevant to Health Maintenance Insurance [facility] TPL [employer] Democrat Liability [facility] Member Subscriber Plan / Payer (Ef fective for All Dates) Name:Tatiana Mcpherson Relation to Subscriber:Self Name:TATIANA MCPHERSON Payer ID:Not on file Group ID:Not on file Type:Medicaid [place] Address: [address] Member Subscriber Plan / Payer (Ef fective for All Dates) Name:Tatiana Mcpherson Relation to Subscriber:Self Name:TATIANA MCPHERSON Payer ID:Not on file Group ID:Not on file Type:Medicaid [place] Address: [address] Member Subscriber Plan / Payer (Ef fective for All Dates) Name:Tatiana Mcpherson Relation to Subscriber:Self Name:TATIANA MCPHERSON Payer ID:Not on file Group ID:Not on file Type:Medicaid [place] Address: [address] Advance Directives * Full Code (Latest [...] 9:59 AM 12/31/2023 10:03 PM Care Teams Poolroom/Poolhall Manager Relationship Specialty Start Date End Date Eli Abbott MD [address] Hernandez [address] [place] [phone] PCP - General Family Medicine 11/24/24 Ally Chambers, RN Copy Worker 09/12/16
--- OUTSIDE RECORDS SUMMARY | 2024-11-25 22:01 | XMS_ITS | Clinical Summary ---
Author Organization [facility] Address [address] [place] [address] Phone Care Team Providers Care Data Center Manager Name Role Phone Jn Polo Byron PAC Unavailable [phone] Eli Abbott MD Primary Care Provider [phone] Allergies Active Allergy Reactions Criticality Noted Date [...] Wasp Venom Anaphylaxis,Swelling High 10/27/2024 Medications Multiple Vitamins-Nutritionist Public Health als (MULTIVITAMIN PO) Take 1 Tablet by [...] Take 325 mg by mouth daily. Active Mesick 3-6-9 Fatty Acids (OMEGA 3-6-9 COMPLEX PO) [...] Description 11/05/2024 9:00 AM CDT Office Visit [facility] Orthopedic Surgery [facility] [address] [place] [address] Jn Polo PAC Right shoulder pain, unspecified chronicity (Primary Dx); Rotator cuff tendonitis, right Discharge Disposition: Discharged to home or Selfcare 11/05/2024 Travel 11/03/2024 Results Follow-Up [facility] Orthopedic [facility] [address] [place] [address] Shirley Corral MA MRI RIGHT SHOULDER WO CONTRAST 10/28/2024 4:23 PM CDT - 10/28/2024 11:59 PM CDT Hospital [facility] MRI [address] [place] [address] Jn Polo, [facility] Discharge Disposition: Discharged to home or Selfcare 10/28/2024 Travel 10/27/2024 Nurse Triage [facility] [address] [place] [address] Cynthia Trotter RN COPD; Asthma 10/24/2024 2:45 PM CDT - 10/24/2024 4:34 PM CDT Emergency [facility] [address] [place] [address] Maame Ayala MD Seizure (HCC) Discharge Disposition: Left Against Medical Advice 10/24/2024 Travel 10/16/2024 Telephone [facility] [address] [place] [phone] Nadine Hernandez Patient Outreach 10/14/2024 6:09 PM CDT - 10/14/2024 9:58 PM CDT Emergency [facility] [address] [place] [address] Adrian Yap MD Hematemesis Discharge Disposition: Discharged to home or Selfcare 10/14/2024 Travel 10/11/2024 4:01 PM CDT - 10/11/2024 6:27 PM CDT Emergency [facility] [address] [place] [address] Arielle Galdamez MD Nausea and vomiting, unspecified vomiting type Discharge Disposition: Discharged to home or Selfcare 10/11/2024 Travel 10/09/2024 4:16 PM RESIDENTIAL PLUMBER - 10/09/2024 7:19 PM RESIDENTIAL PLUMBER Emergency [facility] [address] [place] [address] Maame Ayala MD Upper GI bleeding Discharge Disposition: Discharged to home or Selfcare 10/09/2024 Travel 09/03/2024 10:00 AM RESIDENTIAL PLUMBER Office Visit [facility] [address] [place] [address] Jn Polo L, PAC Right shoulder pain, [...] CONTRAST Stat with Interpretation 10/09/2024 5:50 PM RESIDENTIAL PLUMBER PROTIME (PT) (PROTHROMBIN TIME) STAT 10/09/2024 5:13 PM RESIDENTIAL PLUMBER CBC WITH AUTO DIFFERENTIAL STAT 10/09/2024 2:26 PM RESIDENTIAL PLUMBER MAGNESIUM (MG) STAT 10/09/2024 2:26 PM RESIDENTIAL PLUMBER LIPASE STAT 10/09/2024 2:26 PM RESIDENTIAL PLUMBER CMP (COMPREHENSIVE METABOLIC PANEL) STAT 10/09/2024 2:26 PM RESIDENTIAL PLUMBER COMPLETE BLOOD COUNT (CBC) WITH DIFF STAT 10/09/2024 2:26 PM RESIDENTIAL PLUMBER URINALYSIS REFLEX IF INDICATED BY ABNORMAL RESULTS STAT 10/09/2024 2:09 PM RESIDENTIAL PLUMBER STOOL, OCCULT BLOOD, DIAGNOSTIC, VIA GUAIAC STAT 03/12/2024 5:19 PM CDT from Last 3 Months or Most Recently Relevant to Health Maintenance Results * MRI RIGHT SHOULDER WO CONTRAST (10/28/2024 5:26 PM CDT) Anatomical Region Laterality Modality UPPER EXTREMITY, shoulder Right Magnet ic Resonance 10/29/2024 9:09 AM CDT Impressions 10/29/2024 9:11 AM CDT IMPRESSION: Supraspinatus and infraspinatus padq-zy-bcwtutot tendinosis without discrete tearing. Subscapularis uktp-jl-bnnquuvb tendinosis with interstitial tearing of the superior bundle. Acromioclavicular articulation mild osteoarthritis. Narrative 10/29/2024 9:11 AM CDT EXAM DESCRIPTION: MRI RIGHT SHOULDER WO CONTRAST REASON FOR STUDY: Right shoulder pain status post fall July 09, 2024 TECHNIQUE: Multiplanar, multisequence MRI of the right shoulder was performed without contrast. COMPARISON: None FINDINGS: Rotator Cuff: There is tmdn-ay-pfrbmsns supraspinatus tendinosis without discrete tearing. There is noye-hf-cjaxcuyi infraspinatus tendinosis without discrete tearing. Teres minor is intact intra-articular biceps is within normal limits. Subscapularis demonstrates tvia-rd-ekikepkt tendinosis with interstitial tearing of the superior [...] Samson Cruz M.D. JA: CINDI Report ID: [id number] Reading Location: [id number] Procedure Note Samson Cruz MD - 10/29/2024 EXAM DESCRIPTION: MRI RIGHT SHOULDER WO CONTRAST REASON FOR STUDY: Right shoulder pain status post fall July 09, 2024 TECHNIQUE: Multiplanar, multisequence MRI of the right shoulder was performed without contrast. COMPARISON: None FINDINGS: Rotator Cuff: There is zmzi-nf-ocpfdgmq supraspinatus tendinosis without discrete tearing. There is bnur-mq-ioglnvgh infraspinatus tendinosis without discrete tearing. Teres minor is intact intra-articular biceps is within normal limits. Subscapularis demonstrates hazw-pm-pxaxxaqu tendinosis with interstitial tearing of the superior [...] Samson Cruz M.D. JA: CINDI Report ID: [id number] Reading Location: [id number] IMPRESSION: Supraspinatus and infraspinatus slvt-yv-iyujxuzv tendinosis without discrete tearing. Subscapularis vdjz-mj-kuhcercv tendinosis with interstitial tearing of the superior bundle. Acromioclavicular articulation mild osteoarthritis. us Jn Polo PAC IMG MR ORDERABLES Final R esult * LEVETIRACETAM (10/24/2024 3:05 PM CDT) Pathologist [facility] LEVETIRACETAM 13.8 12 - 46 mcg/mL 10/24/2024 10:29 PM CDT [facility] Blood Venipuncture / Unknown 10/24/2024 3:05 PM CDT 10/24/2024 3:16 PM CDT us Maame Ayala MD LAB SEND OUTS Final Re sult [facility] [address] [place] [address], [place] * (ABNORMAL) CBC with Auto Differential (10/24/2024 3:05 PM CDT) Only the most recent of4 resultswithin the time period is included. WBC 6.78 4.00 - 12.00 10(3)/mcL 10/24/2024 4:03 PM CDT [facility] RBC 3.97 3.80 - 5.30 10(6)/mcL 10/24/2024 4:03 PM CDT [facility] HEMOGLOBIN (HGB) 9.6(L) 12.0 - 15.8 g/dL 10/24/2024 4:03 PM CDT [facility] HEMATOCRIT (HCT) 32.7(L) 36.0 - 47.0 % 10/24/2024 4:03 PM CDT [facility] MCV 82.4 82.0 - 96.0 fL 10/24/2024 4:03 PM CDT [facility] MCH 24.2(L) 26.0 - 34.0 pg 10/24/2024 4:03 PM CDT [facility] MCHC 29.4(L) 31.0 - 36.0 g/dL 10/24/2024 4:03 PM CDT [facility] PLATELET COUNT 322 140 - 440 10(3)/[facility] 10/24/2024 4:03 PM CDT [facility] RDW 18.9(H) 11.8 - 15.5 % 10/24/2024 4:03 PM CDT [facility] MPV 10.0 9.7 - 12.4 fL 10/24/2024 4:03 PM CDT [facility] NEUTROPHILS 68.8 47.0 - 73.0 % 10/24/2024 4:03 PM CDT [facility] LYMPHOCYTES 20.9 18.0 - 42.0 % 10/24/2024 4:03 PM CDT [facility] MONOCYTES 8.0 4.0 - 12.0 % 10/24/2024 4:03 PM CDT [facility] EOSINOPHILS 1.9 0.0 - 5.0 % 10/24/2024 4:03 PM CDT [facility] BASOPHILS 0.4 0.0 - 1.0 % 10/24/2024 4:03 PM CDT [facility] ABSOLUTE NEUTROPHILS 4.66 1.60 - 7.70 10(3)/mcL 10/24/2024 4:03 PM CDT [facility] ABSOLUTE LYMPHOCYTES 1.42 1.30 - 3.20 10(3)/mcL 10/24/2024 4:03 PM CDT [facility] ABSOLUTE MONOCYTES 0.54 0.20 - 1.00 10(3)/mcL 10/24/2024 4:03 PM CDT [facility] ABSOLUTE EOSINOPHIL 0.13 0.00 - 0.40 10(3)/mcL 10/24/2024 4:03 PM CDT [facility] ABSOLUTE BASOPHILS 0.03 0.00 - 0.10 10(3)/mcL 10/24/2024 4:03 PM CDT [facility] NRBC PER 100 WBC 0 10/25/19 4:03 PM CDT [facility] RESULTS ARE CONSISTENT WITH PERIPHERAL SMEAR REVIEW Yes 10/24/2024 4:03 PM CDT [facility] RBC MORPHOLOGY CONSISTENT WITH INDICES Yes 10/24/2024 4:03 PM CDT [facility] POIKILOCYTOSIS 1+ 10/24/2024 4:03 PM CDT [facility] OVALOCYTES Present 10/24/2024 4:03 PM CDT [facility] POLYCHROMASIA 1+ 10/24/2024 4:03 PM CDT [facility] Blood Venipuncture / Unknown 10/24/2024 3:05 PM CDT 10/24/2024 3:16 PM CDT Narrative [facility] - 10/24/2024 4:03 PM CDT Hypochromia us Maame Ayala MD HEMATOLOGY ORDERABLES Fi nal Result Performing Organization Address City/[facility]/ZIP Co de Phone Number [facility] [address] [place] [address] * (ABNORMAL) Valproic Acid (Depakene) [id number] (10/24/2024 3:05 PM CDT) VALPROIC ACID TOTAL <13(L) 50 - 100 mcg/mL 10/24/2024 3:56 PM CDT [facility] Blood Venipuncture / Unknown 10/24/2024 3:05 PM CDT 10/24/2024 3:16 PM CDT Maame Ayala MD CHEMISTRY ORDERABLES Fin al Result Performing Organization Address City/[facility]/ZIP Co de Phone Number [facility] [address] [place] [address] * (ABNORMAL) Comprehensive Metabolic Panel (Cmp) [id number] (10/24/2024 3:05 PM CDT) Only the most recent of4 resultswithin the time period is included. SODIUM 140 136 - 145 mmol/L 10/24/2024 3:42 PM CDT [facility] POTASSIUM 4.7 3.5 - 5.1 mmol/L 10/24/2024 3:42 PM CDT [facility] CHLORIDE 112(H) 98 - 107 mmol/L 10/24/2024 3:42 PM CDT [facility] CO2, VENOUS 19(L) 22 - 30 mmol/L 10/24/2024 3:42 PM CDT [facility] ANION GAP 13.7 <18.0 mmol/L 10/24/2024 3:42 PM CDT [facility] GLUCOSE 92 70 - 99 mg/dL 10/24/2024 3:42 PM CDT [facility] BUN 16 5 - 18 mg/dL 10/24/2024 3:42 PM CDT [facility] CREATININE, BLOOD 0.70 0.60 - 1.00 mg/dL 10/24/2024 3:42 PM CDT [facility] BUN/CREATININE RATIO 23(H) 12 - 20 ratio 10/24/2024 3:42 PM CDT [facility] TOTAL PROTEIN 6.2 6.0 - 8.0 g/dL 10/24/2024 3:42 PM CDT [facility] ALBUMIN 3.6 3.5 - 5.0 g/dL 10/24/2024 3:42 PM CDT [facility] A/G RATIO 1.4 1.0 - 2.2 10/24/2024 3:42 PM CDT [facility] CALCIUM 8.5(L) 8.7 - 10.5 mg/dL 10/24/2024 3:42 PM CDT [facility] T BILI 0.1(L) 0.2 - 1.2 mg/dL 10/24/2024 3:42 PM CDT [facility] SGOT (AST) 21 <43 U/L 10/24/2024 3:42 PM CDT [facility] SGPT (ALT) 21 <56 U/L 10/24/2024 3:42 PM CDT [facility] ALKALINE PHOSPHATASE 97 40 - 150 U/L 10/24/2024 3:42 PM CDT [facility] GFR, ESTIMATED >60 >=60 10/24/2024 3:42 PM CDT [facility] Comment: Creatinine Clearance is the preferred criteria for selecting drug dose adjustments in renally impaired patients. The GFR is provided as additional pertinent clinical information. GFR is reported in mL/min/1.73 sq m. Calculation based on the Chronic Kidney Disease Epidemiology Collaboration (CKD- EPI) equation refit without adjustment for race. GFR, EST. >60 >=60 025 3:42 PM CDT [facility] GFR, EST. NONAFRICAN >60 >=60 10/24/2024 3:42 PM CDT [facility] Blood Venipuncture / Unknown 10/24/2024 3:05 PM CDT 10/24/2024 3:16 PM CDT Maame Ayala MD CHEMISTRY ORDERABLES Fin al Result [facility] [address] [place] [address] * (ABNORMAL) POCT Glucose (10/24/2024 2:53 PM CDT) GLUCOSE,BEDSID E POCT 111(H) 70 - 99 mg/dL 10/24/2024 2:58 PM CDT [facility] Comment:Patient RN Performed Blood 10/24/2024 2:53 PM CDT 10/24/2024 2:58 PM CDT us None Provider POINT OF CARE TESTING Final Resu lt Performing Organization Address City/[facility]/ZIP Co de Phone Number [facility] [address] [place] [address] * EKG 12 LEAD (10/24/2024 2:47 PM CDT) Ventricular Rate 88 BPM EXTERNAL EKG Atrial Rate 88 BPM EXTERNAL EKG P-R Interval 154 ms EXTERNAL EKG QRS Duration 86 ms EXTERNAL EKG Q-T Duration 354 ms EXTERNAL EKG QTC CALCULATION 428 ms EXTERNAL EKG P [place] 40 degrees EXTERNAL EKG R [place] 6 degrees EXTERNAL EKG T [place] 33 degrees EXTERNAL EKG 10/24/2024 2:47 PM CDT Impressions EXTERNAL EKG - 10/26/2024 11:28 PM CDT Normal sinus rhythm Normal ECG When compared with ECG of 20-JUL-2024 19:13, No significant change was found Confirmed by Leonora Loco ([id number]) on 10/26/2024 11:28:47 PM Narrative Procedure Note Leonora Loco DO - 10/26/2024 IMPRESSION: Normal sinus rhythm Normal ECG When compared with ECG of 20-JUL-2024 19:13, No significant change was found Confirmed by Leonora Loco ([id number]) on 10/26/2024 11:28:47 PM us Maame Ayala MD IMG ECG ORDERABLES Final Result Performing Organization Address [facility] Co de Phone Number EXTERNAL EKG * EKG SCAN (10/24/2024 12:00 AM CDT) Only the most recent of2 resultswithin the time period is included. 10/24/2024 us Provider Scan IMG ECG ORDERABLES Final Result Performing Organization Address City/[facility] Co de Phone Number RESULTING AGENCY * (ABNORMAL) URINALYSIS REFLEX IF INDICATED BY ABNORMAL RESULTS (10/14/2024 7:27 PM CDT) Only the most recent of3 resultswithin the time period is included. SPECIFIC GRAVITY 1.005 1.003 - 1.030 10/14/2024 7:43 PM CDT [facility] URINE PH 7.0 5.0 - 9.0 10/14/2024 7:43 PM CDT [facility] WBC ESTERASE Negative Negative 10/14/2024 7:43 PM CDT [facility] NITRITE Negative Negative 10/14/2024 7:43 PM CDT [facility] PROTEIN, RANDOM URINE 15 mg/dL(A) Negative 10/14/2024 7:43 PM CDT [facility] URINE GLUCOSE, QUAL Negative Negative 10/14/2024 7:43 PM CDT [facility] URINE KETONES Negative Negative 10/14/2024 7:43 PM CDT [facility] UROBILINOGEN Normal Normal mg/dL 10/14/2024 7:43 PM CDT [facility] URINE BLOOD Negative Negative caitlin/ul 10/14/2024 7:43 PM CDT [facility] URINALYSIS COLOR Yellow 10/15/19 7:43 PM CDT [facility] URINALYSIS CLARITY Clear 10/14/2024 7:43 PM CDT [facility] Urine URINE SPECIMEN OBTAINED BY CLEAN CATCH PROCEDURE / Unknown Non-Phlebotomy Collection / Unknown 10/14/2024 7:27 PM CDT 10/14/2024 7:38 PM CDT us Adrian Yap MD URINE ORDERABLES Final Re sult [facility] [address] [place] [address] * Lipase (10/14/2024 7:18 PM CDT) Only the most recent of3 resultswithin the time period is included. LIPASE 24 8 - 78 U/L 10/14/2024 7:42 PM CDT [facility] Blood Venipuncture / Unknown 10/14/2024 7:18 PM CDT 10/14/2024 7:20 PM CDT us Adrian Yap MD CHEMISTRY ORDERABLES Ashly l Result [facility] [address] [place] [address] * POCT Urine HCG () (10/11/2024 4:20 PM CDT) POC URINE Negative POC URINE CONTROL Head Cashier Pass Urine 10/11/2024 4:20 PM CDT Arielle Galdamez MD POINT OF CARE TESTING (MANUAL ) Final Result * CT ABDOMEN PELVIS W/O CONTRAST (10/09/2024 5:50 PM RESIDENTIAL PLUMBER) Anatomical Region Laterality Modality Abdomen N/A Computed Tomogra phy 10/09/2024 6:22 PM RESIDENTIAL PLUMBER Impressions 10/09/2024 6:24 PM RESIDENTIAL PLUMBER IMPRESSION: No bowel inflammation or other cause for hematemesis identified. Narrative 10/09/2024 6:24 PM RESIDENTIAL PLUMBER EXAM DESCRIPTION: CT ABDOMEN PELVIS W/O CONTRAST [...] Santi Castrejon M.D. AR: CYN Report ID: [id number] Reading Location: [id number] Procedure Note Santi Castrejon MD - 10/09/2024 [...] Santi Castrejon M.D. AR: CYN Report ID: [id number] Reading Location: [id number] IMPRESSION: No bowel inflammation or other cause for hematemesis identified. Maaem Ayala MD IMG CT ORDERABLES Final Result * PT / INR (10/09/2024 5:13 PM RESIDENTIAL PLUMBER) [facility] PROTIME-PATIENT 12.5 11.6 - 14.8 sec 10/09/2024 6:00 PM RESIDENTIAL PLUMBER [facility] INR 0.9 0.9 - 1.2 10/09/2024 6:00 PM RESIDENTIAL PLUMBER [facility] Comment: Therapeutic Ranges INR = 2.0-3.0: Venous thromb, atrial fib, pul embolism, tissue heart valve, ami. INR = 2.5-3.5: Mechanical heart valve Critical value for INR is >/= 4.5 Blood Venipuncture / Unknown 10/09/2024 5:13 PM RESIDENTIAL PLUMBER 10/09/2024 5:45 PM RESIDENTIAL PLUMBER us Maame Ayala MD HEMATOLOGY ORDERABLES Fi nal Result Performing Organization Address City/[facility]/ZIP Co de Phone Number [facility] [address] [place] [address] * Magnesium (10/09/2024 2:26 PM RESIDENTIAL PLUMBER) [facility] MAGNESIUM 2.2 1.6 - 2.6 mg/dL 10/09/2024 5:04 PM RESIDENTIAL PLUMBER [facility] Blood Venipuncture / Unknown 10/09/2024 2:26 PM RESIDENTIAL PLUMBER 10/09/2024 2:35 PM RESIDENTIAL PLUMBER Maame Ayala MD CHEMISTRY ORDERABLES Fin al Result [facility] [address] [place] [address] * Stool, Occult Blood, Diagnostic (03/12/2024 5:19 PM CDT) [facility] OCCULT BLOOD DIAG, GI BLEED Negative Negative 03/12/2024 5:54 PM CDT [facility] Stool STOOL SPECIMEN / Unknown Non-Phlebotomy Collection / Unknown 03/12/2024 5:19 PM CDT 03/12/2024 5:37 PM CDT us Jhoana Carrion BLOW MOLDING MACHINE TENDER, EARLY CHILDHOOD COORDINATOR BODY FLUIDS & STOOLS ORDERABLES Final Result [facility] [address] [place] [address] from Last 3 Months or Most Recently [...] measures to stabilize the patient. Care Teams Data Center Manager Relationship Specialty Start Date End Date Eli Abbott MD [address] [place] [address] PCP - General Family Medicine 09/03/24 Jn Polo PAC [address] [place] [address] Physician Screen Printing Equipment Setter Physician Screen Printing Equipment Setter 07/13/24
--- OUTSIDE RECORDS SUMMARY | 2024-11-25 22:01 | XMS_ITS ---
Author Organization [facility] Address [address] [place] [address] Phone Care Team Providers Care Diesel Maintenance Technician Name Role Phone Jn Polo PAC Unavailable Eli Abbott MD Primary Care Provider [phone] [facility] Chronic Condition Monitoring Status:Enrolled (Active) Start date:07/17/2023 Enrollment date:07/18/2023 Current support & services provided:Asthma Management, COPD Management Related social drivers of health:Intimate Partner Violence, Social Connections, Alcohol Use, Tobacco Use, Financial Resource Strain,Depression, Stress, Physical Activity, Food Insecurity, Transportation Needs, Housing Stability, Utilities Continued Care and Services Coordination
--- OUTSIDE RECORDS SUMMARY | 2024-11-25 22:01 | XMS_ITS | Encounter Summary ---
Author Organization [facility] Address [address] [place] [address] Phone Care Team Providers Care Tea And Spice Supervisor Name Role Phone Brett Chávez MD Primary Care Provider [phone] Cedric Martinez MD Primary Care Provider [phone] Sue Snow MD Primary Care Provider [phone] Jn Polo PAC Unavailable [phone] Eli Abbott MD Primary Care Provider [phone] Reason for Visit * Reason Comments Medication Refill Encounter Details Date Type Department Care Team (Late st Contact Info) Description 01/27/2020 Refill [facility] #[address] [place] [phone] Cruz Velasquez MD [address] [place] [address] Medication Refill Social History Tobacco [...] - 19 08/01/2020 08/01/2020 08/05/2020 1:58 PM POWDER PRESS OPERATOR COVID - 19 08/17/2021 08/17/2021 08/20/2021 6:06 AM POWDER PRESS OPERATOR COVID - 19 Confirmed 08/17/2021 08/17/2021 022 12:16 AM POWDER PRESS OPERATOR COVID - 19 07/26/2022 09/17/2022 09/17/2022 8:04 AM POWDER PRESS OPERATOR COVID - 19 07/20/2024 07/20/2024 07/20/2024 9:02 PM POWDER PRESS OPERATOR documented as of this encounter Care Teams Tea And Spice Supervisor Relationship Specialty Start Date End Date Brett Chávez MD [address] [place] [address] PCP - General Family Medicine 06/12/15 03/25/23 Cedric Martinez MD [address] [place] [address] PCP - General Family Medicine 03/26/23 02/04/24 Sue Snow MD [address] [place] [address] PCP - General Internal Medicine 02/05/24 09/02/24 Eli Abbott MD [address] [place] [address] PCP - General Family Medicine 09/03/24 Jn Polo PAC [address] [place] [address] Physician Water Taxi Boat Mate Physician Water Taxi Boat Mate 07/13/24 documented as of this encounter
--- OUTSIDE RECORDS SUMMARY | 2024-11-25 22:01 | XMS_ITS | Encounter Summary ---
Author Organization [facility] Address [address] [place] [address] Phone Care Team Providers Care Doormaker Name Role Phone Brett Chávez MD Primary Care Provider [phone] Cedric Martinez MD Primary Care Provider [phone] Sue Snow MD Primary Care Provider [phone] Jn Polo PAC Unavailable [phone] Eli Abbott MD Primary Care Provider [phone] Reason for Visit * Reason Comments Medication Refill Encounter Details Date Type Department Care Team (Late st Contact Info) Description 07/18/2020 Refill [facility] [address] [place] [phone] Cruz Velasquez MD [address] [place] [address] Medication Refill Social History Tobacco [...] COVID-19? No / Unsure 07/14/2020 11:34 PM TUBE DEPATCHER documented as of this encounter Miscellaneous Notes * Telephone Encounter - Thelma Paez - 07/19/2020 7:58 AM CST Patient has not been seen in the past 6 months. DEPATCHER documented in this encounter Plan of Treatment Not on file documented as of this encounter Visit Diagnoses Not on filedocumented in this encounter Additional Health Concerns Infection Onset Date Last Indicated Resolved Time COVID - 19 08/01/2020 08/01/2020 08/05/2020 1:58 PM TUBE DEPATCHER COVID - 19 08/17/2021 08/17/2021 08/20/2021 6:06 AM TUBE DEPATCHER COVID - 19 Confirmed 08/17/2021 08/17/2021 022 12:16 AM TUBE DEPATCHER COVID - 19 07/26/2022 09/17/2022 09/17/2022 8:04 AM TUBE DEPATCHER COVID - 19 07/20/2024 07/20/2024 07/20/2024 9:02 PM TUBE DEPATCHER documented as of this encounter Care Teams Doormaker Relationship Specialty Start Date End Date Brett Chávez MD [address] [place] [address] PCP - General Family Medicine 06/12/15 03/25/23 Cedric Martinez MD [address] [place] [address] PCP - General Family Medicine 03/26/23 02/04/24 Sue Snow MD [address] [facility] [place] [facility] [address] [place] [address] PCP - General Internal Medicine 02/05/24 09/02/24 Eli Abbott MD [address] [address] PCP - General Family Medicine 09/03/24 Jn Polo PAC [address] [place] [address] Physician A Operator Physician A Operator 07/13/24 documented as of this encounter
--- OUTSIDE RECORDS SUMMARY | 2024-11-25 22:01 | XMS_ITS ---
Care Plan - [facility] Created on: November 25, 2024 BHARAT MCNAIR : 1980 Sex: Female Author Organization [facility] Address [address] [place] [address] Phone Care Team Providers Care Building Maintenance Superintendent Name Role Phone ANATOLIY FLORES, DUANE Taylor Primary Care Provider [phone]
--- OUTSIDE RECORDS SUMMARY | 2024-11-25 22:01 | XMS_ITS | Clinical Summary ---
Author Organization [facility] Address [address] [place] [address] Phone Care Team Providers Care Chummer Name Role Phone ANATOLIY FLORES, DUANE Taylor Primary Care Provider [phone] Reason for Visit and Chief Complaint The Chief Complaint is: REFERRED BY DUANE MARTINEZ, PCP FOR COLLAPSED VERTEBRE Plan of Treatment No Plan of Treatment Recorded Assessments Includes: Assessments from this encounter Findings - Bulging lumbar disc [M51.26 - Other intervertebral disc displacement, lumbar region] - Last Documented On 04/30/2023 2:16PM ; [facility] - Lumbar spondylosis with radiculopathy [M47.26 - Other spondylosis with radiculopathy, lumbar region] - Last Documented On 04/30/2023 2:16PM ; [facility] - SPINAL STENOSIS LUMBAR REGION W/O NEUROGENIC CLAUDICATION [M48.061 - Spinal stenosis, lumbar region without neurogenic claudication] - Last Documented On 04/30/2023 2:16PM ; [facility] Medical Equipment - Implanted Devices Includes: Current [...] TWO TIMES A DAYsto p gabapentin Pharmacy: [place] [id number] [facility], [address] - Last Documented On 10/26/202 3 11:15AM By CORTEZ HAMILTON ; [facility] Nucynta ER 100 MG Oral Tablet Extended Release 12 Hour Provider: CORTEZ AVENDAÑO 15 day supply: 30 tablet, 0 refills Diagnosis: Other spondylosis with radiculopathy, lumbar region 1 tab every 12 hours by mouth Pharmacy: [address], [address] - Last Documented On 3 2:58PM By CORTEZ HAMILTON ; [facility] Current Medications (continue as prescribed) Pregabalin 150 MG Oral Capsule 05/30/2023 Provider: CORTEZ HAMILTON Diagnosis: Other spondylosi s with radiculopathy, lumbar region 1 CAPSULE TWO TIMES A DAY Last Documented On 3 11:19AM By CORTEZ HAMILTON ; [facility] Lacosamide 100 MG Oral Tablet 04/29/2023 Provider: JOANIE MAHER MD Diagnosis: Last Documented On 04/29/2023 2:00PM By Amy ACEVEDO ; [facility] Biofreeze 4% External Gel 04/29/2023 Provider: Diagnosis: Last Documented On 04/29/2023 2:03PM By Amy ACEVEDO ; [facility] Naproxen 500 MG Oral Tablet 04/29/2023 Provider: Diagnosis: bid Last Documented On 3 2:32PM By CORTEZ HAMILTON ; [facility] HYDROmorphone HCl 2 MG Oral Tablet 04/25/2023 Provid er: Diagnosis: Last Documented On 04/29/2023 2:00PM By Amy ACEVEDO ; [facility] Cyclobenzaprine HCl 10 MG Oral Tablet 04/11/2023 Pro vider: KIAN MEDEROS MD Diagnosis: Last Documented On 04/29/2023 2:01PM By Amy ACEVEDO ; [facility] levETIRAcetam 1000 MG Oral Tablet 03/19/2023 Provide r: DUANE MARTINEZ MD Diagnosis: Last Documented On 04/29/2023 2:01PM By Amy ACEVEDO ; [facility] Medications Administered Includes: Administered [...] 98 Last Documented: On 04/29/2023 1:59PM ; [facility] Results Includes: Results discussed during this encounter Drugs of abuse screen [facility] Ordered by CORTEZ HERNANDEZ [facility]- on Collected: Reported: 04/29/2023 13:51 Last Documented On 3 1:52PM ; [facility] Reviewed on 04/29/2023; All test results are final unless otherwise noted. Lot # & Exp. Date [id number], 11-03-23 N (Normal) Last Documented On 3 1:51PM ; [facility] Amphetamines NEG (NEG) N (Normal) Last Documented On 3 1:51PM ; [facility] Barbiturates NEG (neg) N (Normal) Last Documented On 3 1:51PM ; [facility] Benzodiazepines NEG (neg) N (Normal) Last Documented On 3 1:51PM ; [facility] Cocaine NEG (neg) N (Normal) Last Documented On 3 1:51PM ; [facility] Ecstasy NEG (Neg) N (Normal) Last Documented On 3 1:51PM ; [facility] Methamphetamines NEG (neg) N (Normal) Last Documented On 3 1:51PM ; [facility] Methadone NEG (Neg) N (Normal) Last Documented On 3 1:51PM ; [facility] Morphine NEG (Neg) N (Normal) Last Documented On 3 1:51PM ; [facility] Oxycodone NEG (Neg) N (Normal) Last Documented On 3 1:51PM ; [facility] Phencyclidine NEG (NEG) N (Normal) Last Documented On 3 1:51PM ; [facility] TCA/Tricyclic Antidepressants POS (neg) A (Abnormal) Last Documented On 3 1:51PM ; [facility] Cannabis NEG (neg) N (Normal) Last Documented On 3 1:51PM ; [facility] History of Present Illness [...] causes elevated liver enzymes Dr. Martinez in [place] performed labs more recently and has referred [...] 04/29/2023 Last Documented On 3 2:16PM ; [facility] No consumption of alcohol 04/29/2023 Last Documented On 3 2:16PM ; [facility] Not using drugs 04/29/2023 Last Documented On 3 2:16PM ; [facility] Smoking packs of cigarettes per day 1/2 pack 04/29/2023 Last Documented On 3 2:16PM ; [facility] Smoking Status Unknown Procedures and Surgical History Includes: Procedures from this encounter Procedures Code Diagnosis Performing Provider Service L ocation Service Date walker Last Documented On 3 1:46PM ; [facility] a standard wheelchair Last Documented On 3 1:46PM ; [facility] use of tobacco assessment performed 1000F Last Documented On 3 1:04PM ; [facility] review of medications documented 1160F Last Documented On 3 1:04PM ; [facility] screening for adult depression: impressi on and score 15 Last Documented On 3 1:46PM ; [facility] standardized depression screening: posit larry for symptoms Last Documented On 3 1:46PM ; [facility] Pain radiates to both sides of buttocks Last Documented On 3 1:46PM ; [facility] Clinical summary provided to patient ~ Patient understands and agrees with treatment plan. Questions answered Last Documented On 3 1:03PM ; [facility] SOAPP-R: total score 19 Last Documented On 3 1:46PM ; [facility] Surgical History Last Updated No Pacemaker 04/29/2023 Last Documented On 3 2:16PM ; [facility] Surgical / procedural history BJC multip le dates 04/29/2023 Last Documented On 3 2:16PM ; [facility] Medical History Includes: Medical History addressed during this encounter Description Last Updated Back brace 04/29/2023 Last Documented On 3 2:16PM ; [facility] CT/MRI [facility]JC multiple dates 04/29/2023 Last Documented On 3 2:16PM ; [facility] Injection/Nerve blocks 04/29/2023 Last Documented On 3 2:16PM ; [facility] Moderate to severe pain 04/29/2023 Last Documented On 3 2:16PM ; [facility] NCV/EMG BJ multiple dates 04/29/2023 Last Documented On 3 2:16PM ; [facility] No Pain Pump 04/29/2023 Last Documented On 3 2:16PM ; [facility] No Spinal cord stimulator 04/29/2023 Last Documented On 3 2:16PM ; [facility] Other method: 04/29/2023 Last Documented On 3 2:16PM ; [facility] Physical therapy 04/29/2023 Last Documented On 3 2:16PM ; [facility] Please list all illnesses/co nditions you have been diagnosed with: Broken bones in back and may have MS 04/29/2023 Last Documented On 3 2:16PM ; [facility] Please list all surgeries: Please ask Last Documented On 3 2:16PM ; [facility] X-rays [facility] multiple dates 04/29/2023 Last Documented On 3 2:16PM ; [facility] Family History Includes: Family History addressed during this encounter Description Last Updated Family history of ischemic heart disease 04/29/2023 Last Documented On 3 2:16PM ; [facility] Family history of ischemic heart disease 04/29/2023 Last Documented On 3 2:16PM ; [facility] Family history of ischemic heart disease 04/29/2023 Last Documented On 3 2:16PM ; [facility] Family history of stroke/paralysis 04/29 Last Documented On 3 2:16PM ; [facility] Family history of stroke/paralysis 04/29 Last Documented On 3 2:16PM ; [facility] Fraternal history of Arthritis 3 Last Documented On 3 2:16PM ; [facility] Maternal history of Arthritis 04/29/2023 Last Documented On 3 2:16PM ; [facility] Maternal history of family history of is chemic heart disease 04/29/2023 Last Documented On 3 2:16PM ; [facility] Paternal history of family history of is chemic heart disease 04/29/2023 Last Documented On 3 2:16PM ; [facility] Paternal history of stroke/paralysis Last Documented On 3 2:16PM ; [facility] Reported family history of seizures 04/06 Last Documented On 3 2:16PM ; [facility] Reported family history of seizures 04/06 Last Documented On 3 2:16PM ; [facility] Sororal history of family history of isc hemic heart disease 04/29/2023 Last Documented On 3 2:16PM ; [facility] Review of Systems Includes: Review of Systems [...] tive Last Documented On 04/29/2023 2:02PM ; [facility] Note: LIVER PAIN oxyCODONE HCl Allergy Vomiting 04/29/2023 Activ e Last Documented On 3 2:02PM ; [facility] Encounters Encounter Provider Location Date Check-In Time Check-Out Time Diagnosis PAIN MANAGEMENT NEW CONSULT CORTEZ HAMILTON [facility] 023 1:40PM 2:49PM Bulging Intervertebral Disc Lumbar,Spondylosi s with Radiculopathy Lumbar Region,Spinal Stenosis Lumbar Region W/o Neurogenic Claudication Insurance Includes: Active Insurance Policies Plan Name Member ID Group # Subscriber Relationship Effect larry Dates 1 - [facility] [id number] BHARAT MCNAIR Self Clinical Notes Includes: Clinical Notes from this encounter * Progress note Date Encounter Last Documented by 04/29/2023 PAIN MANAGEMENT NEW CONSULT Last documented on 04/30/2023; 2:16 PM, CORTEZ HAMILTON; [facility] Chief Complaint The Chief [...] causes elevated liver enzymes Dr. Martinez in [place] performed labs more recently and has referred [...] Surgical / Procedural: Surgical / procedural history [facility] multiple dates. No Pacemaker. Tests: X-rays [facility] multiple dates, CT/MRI [facility]J multiple dates, and NCV/EMG [facility] multiple dates. Current Medication - Biofreeze 4% [...] Date: 04/29/2023 Lot # & Exp. Date [id number], 11-03-23 Normal Amphetamines NEG Normal Barbiturates NEG [...] wheelchair. Discussed We will obtain records from [facility] to review type of injection done while hospitalized. Do not recommend long-term use of hydromorphone. She has numerous allergies reported to medication. Recommend the use of Nucynta ER. This medication is indicated for neuropathic pain. Also recommend switching gabapentin to pregabalin 150 mg BID. 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 She apparently underwent an injection of some [...] 50% of this time spent in direct [id number] counseling and coordination of care. Results of [...] but may be subject to typographical or back filler operator errors. Verify all diagnoses, medications, dosages, and patient instructions with patient and/or the originator of this document. Health Reminders - Assess BMI satisfied 04/29/2023. - Assess Tobacco Use satisfied 04/29/2023. - Depression Screening satisfied 04/29/2023.
--- OUTSIDE RECORDS SUMMARY | 2024-11-25 22:01 | XMS_ITS | Encounter Summary ---
Author Organization [facility] Address [address] [place] [address] Phone Care Team Providers Care Tester Sound Name Role Phone Brett Chávez MD Primary Care Provider [phone] Cedric Martinez MD Primary Care Provider [phone] Sue Snow MD Primary Care Provider [phone] Jn Polo PAC Unavailable [phone] Eli Abbott MD Primary Care Provider Reason for Visit * Reason Comments Medication Refill Encounter Details Date Type Department Care Team (Late st Contact Info) Description 12/18/2019 Refill [facility] #[address] [place] [id number] Cruz Velasquez MD [address] [place] [address] Medication Refill Social History Tobacco [...] - 19 08/01/2020 08/01/2020 08/05/2020 1:58 PM ASSOCIATE ACCOUNT EXECUTIVE COVID - 19 08/17/2021 08/17/2021 08/20/2021 6:06 AM ASSOCIATE ACCOUNT EXECUTIVE COVID - 19 Confirmed 08/17/2021 08/17/2021 022 12:16 AM ASSOCIATE ACCOUNT EXECUTIVE COVID - 19 07/26/2022 09/17/2022 09/17/2022 8:04 AM ASSOCIATE ACCOUNT EXECUTIVE COVID - 19 07/20/2024 07/20/2024 07/20/2024 9:02 PM ASSOCIATE ACCOUNT EXECUTIVE documented as of this encounter Care Teams Tester Sound Relationship Specialty Start Date End Date Brett Chávez MD [address] [facility] [address] [place] [address] PCP - General Family Medicine 06/12/15 03/25/23 Cedric Martinez MD [address] [facility] [address] [place] [address] PCP - General Family Medicine 03/26/23 02/04/24 Sue Snow MD [address] [place], [place] [id number] PCP - General Internal Medicine 02/05/24 09/02/24 Eli Abbott MD [address] [place] [address] PCP - General Family Medicine 09/03/24 Jn Polo PAC [address] [place] [address] Physician Group Home Manager Physician Group Home Manager 07/13/24 documented as of this encounter
--- OUTSIDE RECORDS SUMMARY | 2024-11-25 22:01 | XMS_ITS | Clinical Summary ---
Author Organization [facility] Address [address] [place] [address] Care Team Providers Care Photogrammetric Stereo Compiler Name Role Phone Denver Veliz MD Unavailable Eriberto Skelton MD Unavailable [phone] Dalton Fragoso MD Unavailable [phone] Eli Abbott MD Primary Care Provider [phone] Allergies Active Allergy Reactions Criticality Noted Date [...] procedure 12/20/2023 PICC (peripherally inserted central catheter) [facility] 12/20/2023 Transient ischemic attack (TIA) 11/29/2023 Numbness and tingling of left upper extremity Postoperative back pain 11/27/2023 Osteopenia 11/26/2023 Overview (01/16/2024): dexa 07/27 Mixed anxiety and depressive disorder 11/26/2023 Overview (01/16/2024): -pt has psych at [facility] Spinal stenosis of lumbar re gion without [...] loss Assessment & Plan (09/16/2023 3:03 PM TETRYL WRINGER OPERATOR): BMI 32.20 Discussed ADA diet Encourage exercising as tolerated Recommend weight loss Abrasion of forearm, left 09/16/2023 Assessment & Plan (09/16/2023 2:58 PM TETRYL WRINGER OPERATOR): Abrasion is healing well without signs or symptoms of infection. Complete the Augmentin. Continue wound care as discussed Bilateral leg numbness 04/23/2023 Assessment & Plan (09/16/2023 3:00 PM TETRYL WRINGER OPERATOR): As a result of bilateral sciatica. [...] 04/02/2023 Assessment & Plan (09/16/2023 3:05 PM TETRYL WRINGER OPERATOR): Scheduled for spinal fusion on 10/02/2023 [...] surgeries. Assessment & Plan (09/16/2023 3:01 PM TETRYL WRINGER OPERATOR): Last reported seizure was on 09/07/2023 [...] 02/14/2023 Assessment & Plan (09/16/2023 3:05 PM TETRYL WRINGER OPERATOR): Status post hysterectomy with BSO Assessment & Plan (04/01/2023 3:47 PM CDT): S/p total hysterectomy Positive D-dimer 12/21/2022 Gallbladder with possible hydrops and stone 12/03 Diet-controlled diabetes mellitus 12/21/2022 Assessment & Plan (10/18/2023 10:53 AM CDT): Well controlled. Tries to follow an ADA diet. Her hemoglobin A1c on 10/15/2023 was 5.5%. No current medications. Assessment & Plan (09/16/2023 3:04 PM TETRYL WRINGER OPERATOR): Patient can not recall her last [...] visit Assessment & Plan (09/16/2023 3:02 PM TETRYL WRINGER OPERATOR): She currently smokes 1/2 pack per [...] 01/15/2008 Assessment & Plan (09/16/2023 2:59 PM TETRYL WRINGER OPERATOR): Managed by Psychiatry, Dr. Fragoso No current medications Denies any SI/HI/SH Anxiety 01/15/2008 Assessment & Plan (09/16/2023 3:00 PM TETRYL WRINGER OPERATOR): Stable. Managed by Dr. Fragoso. No [...] exercise Assessment & Plan (09/16/2023 3:07 PM TETRYL WRINGER OPERATOR): BP 135/88 in the office today [...] 04/08/2023 Assessment & Plan (09/16/2023 3:07 PM TETRYL WRINGER OPERATOR): See above Seizure 03/31/2023 10/17/2023 Right arm pain 02/15/2023 10/17/2023 Right arm weakness 02/15/2023 Tobacco use disorder 02/13/2018 024 Assessment & Plan (09/16/2023 3:08 PM TETRYL WRINGER OPERATOR): Currently smokes 1/2 pack per day Not interested in quitting at this time but will discuss at next office visit Seizure disorder 12/19/2013 10/17/2023 Overview (11/08/2016): Seizure disorder Assessment & Plan (09/16/2023 3:08 PM TETRYL WRINGER OPERATOR): Managed by Dr. Barraza Encounters Date Type Department Care Team Description 11/16/2024 Telephone [facility] Gastroenterology at [place] [address] [place] [phone] Janelle Mina 11/15/2024 1:49 AM CDT - 11/15/2024 2:57 AM CDT Emergency [facility] Emergency Department [address] [place] [address] Chidi Mclain MD Herpes zoster with ophthalmic complication, unspecified herpes zoster eye disease (Primary Dx); Herpes zoster with complication Discharge Disposition: Left Against Medical Advice 11/15/2024 12:18 AM CDT - 11/15/2024 1:35 AM CDT Emergency [facility] Emergency Department [address] [place] [address] Discharge Disposition: Left without being seen 11/15/2024 Telephone [facility] Ophthalmology [address] 1st [place] [id number] Nasima Ramirez MD 11/11/2024 Telephone [facility] Imaging and Radiology [address] [place] [address] Nadja Lacy RN Advice Only 11/02/2024 9:13 AM CDT - 11/02/2024 11:59 PM CDT Hospital Encounter [facility] Imaging and Radiology [address] [place] [address] Encounter for screening mammogram for malignant neoplasm of breast Discharge Disposition: Discharge to home or self care 10/07/[address] [facility] Minimally Invasive Surgery [address] [facility] [address] [place] [phone] Amy Camargo RN 09/29/2024 9:10 PM TETRYL WRINGER OPERATOR - 09/29/2024 11:10 PM TETRYL WRINGER OPERATOR Emergency [facility] Emergency Department [address] [place] [address] Cristina Veras MD Breakthrough seizure (HCC) (Primary Dx) Discharge Disposition: Discharge to home or self care 09/29/2024 8:57 PM TETRYL WRINGER OPERATOR - 09/29/2024 11:59 PM TETRYL WRINGER OPERATOR Hospital Encounter [facility] Emergency, Room R Discharge Disposition: Discharge to home or self care 09/09/2024 1:15 PM TETRYL WRINGER OPERATOR Office [place] [facility] [address] [place] [address] [address], [place] [address] Chhaya Saxena NP Carpal tunnel syndrome, bilateral (Primary Dx); Transient ischemic attack (TIA); Recurrent syncope; Seizures, generalized convulsive (HCC) 09/09/2024 Telephone [facility] [address] [place] [address] [address] [place] [phone] Tari Elias MA 08/28/2024 3:33 PM TETRYL WRINGER OPERATOR - 08/28/2024 11:59 PM TETRYL WRINGER OPERATOR Hospital Encounter [facility] [address] [place] [phone] Acute bronchitis, unspecified organism Discharge Disposition: Discharge [...] drink = 0.6 oz pur e alcohol) [facility] Utilities Answer Date Recorded In the past [...] often do you attend chur ch or hinduism services? Never 04/20/2024 Do you belong to any clubs o r organizations such as muslim groups, unions, fraternal or athletic groups, or [...] place to sleep or slept in a care home (including now)? No 04/24/2023 Housing Stability [...] any time in the past 12 m [facility], were you homeless or living in a care home (including now)? No 04/20/2024 Personal Safety Answer Date Recorded Have you ever been in or are you currently in a harmful physical or emotional relationship or is someone making you feel afraid or unsafe? Denies 11/15/2024 Comments No Sex and Gender Information Value Date Recorded Sex Assigned at Not on file Legal Sex Female 12:47 AM TETRYL WRINGER OPERATOR Gender Identity Not on file Sexual [...] of breast EGFR STAT 09/29/2024 9:56 PM TETRYL WRINGER OPERATOR DIFFERENTIAL AUTO STAT 09/29/2024 9:5 6 PM TETRYL WRINGER OPERATOR COMPREHENSIVE METABOLIC PANEL STAT 09/29/2024 9:56 PM TETRYL WRINGER OPERATOR CBC WITH AUTO DIFFERENTIAL STAT 09/29/2024 9:56 PM TETRYL WRINGER OPERATOR XR CHEST PA LATERAL 2 VIEWS Schedule Routine, Read Routine (OP Routine) 08/28/2024 3:44 PM TETRYL WRINGER OPERATOR Acute bronchitis, unspecified organism HEMOGLOBIN A1C Routine [...] Re sult * eGFR (09/29/2024 9:56 PM TETRYL WRINGER OPERATOR) eGFR >90 >=60 mL/min/1. 73 m2 [...] last reviewed 2021. Blood 09/29/2024 9:56 PM TETRYL WRINGER OPERATOR 09/29/2024 9:57 PM TETRYL WRINGER OPERATOR us Cristina Veras MD LAB BLOOD ORDERABLES Final Resul t [facility] [place]) [address] [place] [address] * Differential, auto (09/29/2024 9:56 PM TETRYL WRINGER OPERATOR) Neutrophil abs 3.2 1.5 - 6.5 [...] revised on 2017. Blood 09/29/2024 9:56 PM TETRYL WRINGER OPERATOR 09/29/2024 9:57 PM TETRYL WRINGER OPERATOR us Cristina Veras MD LAB BLOOD ORDERABLES Final Resul t [facility] [address] [place] [address] * (ABNORMAL) CBC with auto differential (09/29/2024 9:56 PM TETRYL WRINGER OPERATOR) WBC 5.9 3.8 - 9.9 K/cumm [...] [facility] Blood 09/29/2024 9:56 PM TETRYL WRINGER OPERATOR 09/29/2024 9:57 PM TETRYL WRINGER OPERATOR us Cristina Veras MD LAB BLOOD ORDERABLES Final Resul t [facility] [address] [facility] [place] [address] * Comprehensive metabolic panel (09/29/2024 9:56 PM TETRYL WRINGER OPERATOR) Sodium 137 135 - 145 mmol/L [...] Hemolyzed S pecimen Blood 09/29/2024 9:56 PM TETRYL WRINGER OPERATOR 09/29/2024 9:57 PM TETRYL WRINGER OPERATOR us Cristina Veras MD LAB BLOOD ORDERABLES Final Resul t [facility] [address] [place] [address] 143 * XR Chest PA Lateral 2 Views (08/28/2024 3:44 PM TETRYL WRINGER OPERATOR) Anatomical Region Laterality Modality Body, Chest N/A Computed Radiogr aphy 08/30/2024 11:0 7 PM TETRYL WRINGER OPERATOR Narrative 08/30/2024 11:08 PM TETRYL WRINGER OPERATOR EXAM DESCRIPTION: XR CHEST PA LATERAL [...] Jin Barrett M.D. KT: AMALIA Report ID: [id number] Reading Location: [id number] Procedure Note Jin Barrett MD - 08/30/2024 [...] Jin Barrett M.D. KT: KT Report ID: [id number] Reading Location: [id number] Result [facility] Sue Snow MD IMG XR PROCEDURES Final Resul t * Albumin Creatinine Ratio, Urine (01/16/2024 10:50 AM CDT) Albumin Ur <12.0 mg/L Comment: Interpretive Data No reference range established. Current interpretive data was last revised 2018. Creatinine Ur 143.7 mg/dL [facility] Comment: Interpretive Data No reference range established. Current interpretive data was last revised 2018. Albumin Creatinine Ratio, Ur <8 1 - 29 mg/g [facility] Urine 01/16/2024 10:5 0 AM CDT 01/16/2024 7:12 PM CDT Result [facility] Anna Cassidy NP LAB URINE ORDERABLES Final Re sult Performing Organization Address [facility] de Phone Number [facility] [address] [place] [address] * Hemoglobin A1c (01/16/2024 10:50 AM CDT) Pathologist [facility] Hgb A1C 5.3 4.0 - 5.6 % Estimated Average Glucose 105 mg/dL [facility] Comment: The ADA recommends reporting an estimated Average Glucose (eAG) with all Hemoglobin A1c results using the equation derived from a study of 507 normal and diabetic adults. Minority populations were underrepresented and children were not included. (Diabetes Care 31:1628-6397, 2008). The eAG is not equivalent to a fasting glucose. Blood 01/16/2024 10:5 0 AM CDT 01/16/2024 7:12 PM CDT Result [facility] Anna Cassidy NP LAB BLOOD ORDERABLES Final Re sult Performing Organization Address [facility] Co de Phone Number [facility] [address] [place] [address] * (ABNORMAL) Lipid panel (01/16/2024 10:50 AM [...] CDT 01/16/2024 7:12 PM CDT Anna Cassidy MUSIC INSTRUCTOR LAB BLOOD ORDERABLES Final Re sult [facility] [address] [place] [address] * Hepatitis panel, acute (05/16/2014 5:29 PM CDT) HepBsAg NONREACT NONREACTIVE 05/16/2014 6:50 PM CDT [employer] HISTORICAL RESULTS Comment: Siemens NuveaurXP using AVRIL (chemiluminescent immunoassay) technology. NONREACTIVE: IgM antibodies to Hepatitis B Surface antigen not detected. REACTIVE: IgM antibodies to Hepatitis B Surface antigen detected. Reactive results will be confirmed by neutralization testing. HBsAb (immune status) NONREACT NONREACTIVE 05/16/2014 6:17 PM CDT [employer] HISTORICAL RESULTS Comment: Siemens NuveaurXP using AVRIL (chemiluminescent immunoassay) technology. NONREACTIVE: IgM antibodies to Hepatitis B Surface antibody not detected. REACTIVE: IgM antibodies to Hepatitis B Surface antibody detected. Hep B core IgM NONREACT NONREACTIVE 4 7:07 PM CDT [facility] HISTORICAL RESULTS Comment: Siemens [...] Ab NONREACT NONREACTIVE 05/16/2014 7:07 PM CDT [facility] HISTORICAL RESULTS Comment: Siemens CentaurXP using AVRIL [...] MICROBIOLOGY - GENERAL O RDERABLES Final Result [facility] HISTORICAL RESULTS from Last 3 Months or Most Recently Relevant to Health Maintenance Insurance [facility] Advance Directives For more information, please contact: [phone] Documents on File Type Date Recorded Patient Cargo Station Worker Expl anation ADVANCE DIRECTIVE 04/29/2023 4:00 PM DNR ADVANCE DIRECTIVE 04/26/2023 4:27 PM POWER OF PAINTER INTERIOR FINISH-MEDICAL Power of Hair Spring Winder 04/24/2023 8:00 AM * Full Code (Latest [...] 12:32 PM 04/26/2023 12:17 AM Care Teams Photogrammetric Stereo Compiler Relationship Specialty Start Date End Date Eli Abbott MD [address] [place] [address] PCP - General Obstetrics and Gynecology 10/07/24 [place] [address] [address] Consulting Physician Gastroenterology 12/22/22 [place] [address] [address] Consulting Physician Neurosurgery 09/16/23 Dalton Fragoso MD [address] [place] [address] Referring Physician Psychiatry & Neurology 09/16/23
--- OUTSIDE RECORDS SUMMARY | 2024-11-25 22:01 | XMS_ITS | Referral Summary ---
Author Organization [facility] Address [address] [place] [address] Care Team Providers Care Dogger Name Role Phone Denver Veliz MD Unavailable Eriberto Skelton MD Unavailable Dalton Fragoso MD Unavailable [phone] Eli Abbott MD Primary Care Provider [phone] Encounters Date Type Department Care Team Description 11/16/2024 Telephone [facility] Gastroenterology at [address] [place] [address] Janelle Mina 11/15/2024 Telephone [facility] Ophthalmology [address] [place] [phone] Nasima Ramirez MD 11/15/2024 1:49 AM CDT - 11/15/2024 2:57 AM CDT Emergency [facility] Emergency Department [address] [place] [address] Chidi Mclain MD Herpes zoster with ophthalmic complication, unspecified herpes zoster eye disease (Primary Dx); Herpes zoster with complication Discharge Disposition: Left Against Medical Advice 11/15/2024 12:18 AM CDT - 11/15/2024 1:35 AM CDT Emergency [facility] Emergency Department [address] [place] [address] Discharge Disposition: Left without being seen 11/11/2024 Telephone [facility] Imaging and Radiology [address] [place] [address] Nadja Lacy, gm video Only 11/02/2024 9:13 AM CDT - 11/02/2024 11:59 PM CDT Hospital Encounter [facility] [address] [place] [address] Encounter for screening mammogram for malignant neoplasm of breast Discharge Disposition: Discharge to home or self care 10/07/2024 Telephone [facility] Minimally Invasive Surgery [address] [facility] Medical Office Building [address] [place] [address] Amy Camargo RN 09/29/2024 8:57 PM TONSORIAL ARTIST - 09/29/2024 11:59 PM TONSORIAL ARTIST Hospital Encounter [facility]ANCE [facility]ILL[facility] Emergency, Room R Discharge Disposition: Discharge to home or self care 09/29/2024 9:10 PM TONSORIAL ARTIST - 09/29/2024 11:10 PM TONSORIAL ARTIST Emergency [facility] Emergency Department [address] [place] [address] Cristina Veras MD Breakthrough seizure (HCC) (Primary Dx) Discharge Disposition: Discharge to home or self care 09/09/2024 Telephone [facility] [address] [place] [address] [place] [phone] Tari Elias MA 09/09/2024 1:15 PM TONSORIAL ARTIST Office Visit [facility] [address] [place] [address] [place] [phone] Chhaya Saxena NP Carpal tunnel syndrome, bilateral (Primary Dx); Transient ischemic attack (TIA); Recurrent syncope; Seizures, generalized convulsive (HCC) 08/28/2024 3:33 PM TONSORIAL ARTIST - 08/28/2024 11:59 PM TONSORIAL ARTIST Hospital Encounter [facility] [address] [place] [address] Acute bronchitis, unspecified organism Discharge Disposition: Discharge [...] procedure 12/20/2023 PICC (peripherally inserted central catheter) [facility] 12/20/2023 Transient ischemic attack (TIA) 11/29/2023 Numbness and tingling of left upper extremity Postoperative back pain 11/27/2023 Osteopenia 11/26/2023 Overview (01/16/2024): dexa 07/27 Mixed anxiety and depressive disorder 11/26/2023 Overview (01/16/2024): -pt has psych at [place] Spinal stenosis of lumbar re gion without [...] loss Assessment & Plan (09/16/2023 3:03 PM TONSORIAL ARTIST): BMI 32.20 Discussed ADA diet Encourage exercising as tolerated Recommend weight loss Abrasion of forearm, left 09/16/2023 Assessment & Plan (09/16/2023 2:58 PM TONSORIAL ARTIST): Abrasion is healing well without signs or symptoms of infection. Complete the Augmentin. Continue wound care as discussed Bilateral leg numbness 04/23/2023 Assessment & Plan (09/16/2023 3:00 PM TONSORIAL ARTIST): As a result of bilateral sciatica. Accelerated [...] 04/02/2023 Assessment & Plan (09/16/2023 3:05 PM TONSORIAL ARTIST): Scheduled for spinal fusion on 10/02/2023 by [...] surgeries. Assessment & Plan (09/16/2023 3:01 PM TONSORIAL ARTIST): Last reported seizure was on 09/07/2023 Her [...] 02/14/2023 Assessment & Plan (09/16/2023 3:05 PM TONSORIAL ARTIST): Status post hysterectomy with BSO Assessment & Plan (04/01/2023 3:47 PM CDT): S/p total hysterectomy Positive D-dimer 12/21/2022 Gallbladder with possible hydrops and stone 12/03 Diet-controlled diabetes mellitus 12/21/2022 Assessment & Plan (10/18/2023 10:53 AM CDT): Well controlled. Tries to follow an ADA diet. Her hemoglobin A1c on 10/15/2023 was 5.5%. No current medications. Assessment & Plan (09/16/2023 3:04 PM TONSORIAL ARTIST): Patient can not recall her last A1c [...] visit Assessment & Plan (09/16/2023 3:02 PM TONSORIAL ARTIST): She currently smokes 1/2 pack per day [...] 01/15/2008 Assessment & Plan (09/16/2023 2:59 PM TONSORIAL ARTIST): Managed by Psychiatry, Dr. Fragoso No current medications Denies any SI/HI/SH Anxiety 01/15/2008 Assessment & Plan (09/16/2023 3:00 PM TONSORIAL ARTIST): Stable. Managed by Dr. Fragoso. No current [...] exercise Assessment & Plan (09/16/2023 3:07 PM TONSORIAL ARTIST): BP 135/88 in the office today She [...] 04/08/2023 Assessment & Plan (09/16/2023 3:07 PM TONSORIAL ARTIST): See above Seizure 03/31/2023 10/17/2023 Right arm pain 02/15/2023 10/17/2023 Right arm weakness 02/15/2023 Tobacco use disorder 02/13/2018 024 Assessment & Plan (09/16/2023 3:08 PM TONSORIAL ARTIST): Currently smokes 1/2 pack per day Not interested in quitting at this time but will discuss at next office visit Seizure disorder 12/19/2013 10/17/2023 Overview (11/08/2016): Seizure disorder Assessment & Plan (09/16/2023 3:08 PM TONSORIAL ARTIST): Managed by Dr. Barraza Immunizations Immunization Administration [...] drink = 0.6 oz pur e alcohol) [facility] [employer] Answer Date Recorded In the past 12 [...] any clubs o r organizations such as scientologist groups, unions, fraternal or athletic groups, or [...] or slept in a fdc (including now)? No 04/24/2023 Housing Stability Vital [...] time in the past 12 m [facility], were you homeless or living in a fdc (including now)? No 04/20/2024 Personal Safety Answer Date Recorded Have you ever been in or are you currently in a harmful physical or emotional relationship or is someone making you feel afraid or unsafe? Denies 11/15/2024 Comments No Sex and Gender Information Value Date Recorded Sex Assigned at Not on file Legal Sex Female 12:47 AM TONSORIAL ARTIST Gender Identity Not on file Sexual Orientation [...] of breast EGFR STAT 09/29/2024 9:56 PM TONSORIAL ARTIST DIFFERENTIAL AUTO STAT 09/29/2024 9:5 6 PM TONSORIAL ARTIST COMPREHENSIVE METABOLIC PANEL STAT 09/29/2024 9:56 PM TONSORIAL ARTIST CBC WITH AUTO DIFFERENTIAL STAT 09/29/2024 9:56 PM TONSORIAL ARTIST XR CHEST PA LATERAL 2 VIEWS Schedule Routine, Read Routine (OP Routine) 08/28/2024 3:44 PM TONSORIAL ARTIST Acute bronchitis, unspecified organism HEMOGLOBIN A1C Routine [...] Re sult * eGFR (09/29/2024 9:56 PM TONSORIAL ARTIST) eGFR >90 >=60 mL/min/1. 73 m2 Comment: [...] last reviewed 2021. Blood 09/29/2024 9:56 PM TONSORIAL ARTIST 09/29/2024 9:57 PM TONSORIAL ARTIST us Cristina Veras MD LAB BLOOD ORDERABLES Final Resul t [facility] ([place]) [address] [facility] Department [place] [address] * Differential, auto (09/29/2024 9:56 PM TONSORIAL ARTIST) Neutrophil abs 3.2 1.5 - 6.5 K/cumm [...] revised on 2017. Blood 09/29/2024 9:56 PM TONSORIAL ARTIST 09/29/2024 9:57 PM TONSORIAL ARTIST us Cristina Veras MD LAB BLOOD ORDERABLES Final Resul t [facility] ([place] Department [place] [address] * (ABNORMAL) CBC with auto differential (09/29/2024 9:56 PM TONSORIAL ARTIST) WBC 5.9 3.8 - 9.9 K/cumm Hgb [...] [facility] ([place]) Blood 09/29/2024 9:56 PM TONSORIAL ARTIST 09/29/2024 9:57 PM TONSORIAL ARTIST us Cristina Veras MD LAB BLOOD ORDERABLES Final Resul t [facility] ([place]) [address] [facility] Department [place] [address] * Comprehensive metabolic panel (09/29/2024 9:56 PM TONSORIAL ARTIST) Sodium 137 135 - 145 mmol/L Potassium, [...] Hemolyzed S pecimen Blood 09/29/2024 9:56 PM TONSORIAL ARTIST 09/29/2024 9:57 PM TONSORIAL ARTIST us Cristina Veras MD LAB BLOOD ORDERABLES Final Resul t [facility] ([place]) [address] [facility] Department [place] [address] * XR Chest PA Lateral 2 Views (08/28/2024 3:44 PM TONSORIAL ARTIST) Anatomical Region Laterality Modality Body, Chest N/A Computed Radiogr aphy 08/30/2024 11:0 7 PM TONSORIAL ARTIST Narrative 08/30/2024 11:08 PM TONSORIAL ARTIST EXAM DESCRIPTION: XR CHEST PA LATERAL 2 [...] 08/30/2024 11:08 PM - Electronically signed by Jni Barrett M.D. KT: AMALIA Report ID: [id number] Reading Location: [id number] Procedure Note Jin Barrett MD - 08/30/2024 [...] Jin Barrett M.D. KT: KT Report ID: [id number] Reading Location: [place] [address] us Sue Snow MD IMG XR PROCEDURES [...] LAB URINE ORDERABLES Final Re sult [facility] [address] [address] Department [place] [address] * Hemoglobin A1c (01/16/2024 10:50 AM CDT) Hgb A1C 5.3 4.0 - 5.6 % Estimated Average Glucose 105 mg/dL [facility] Comment: The ADA recommends reporting an estimated Average Glucose (eAG) with all Hemoglobin A1c results using the equation derived from a study of 507 normal and diabetic adults. Minority populations were underrepresented and children were not included. (Diabetes Care 31:3072-3711, 2008). The eAG is not equivalent to a fasting glucose. Blood 01/16/2024 10:5 0 AM CDT 01/16/2024 7:12 PM CDT us Anna Cassidy ROPE SILICA MACHINE OPERATOR LAB BLOOD ORDERABLES Final Re sult [facility] [address] [address] [place] [address] * (ABNORMAL) Lipid panel (01/16/2024 10:50 AM [...] BLOOD ORDERABLES Final Re sult [facility] [address] [address] Department [place] [address] * Hepatitis panel, acute (05/16/2014 5:29 PM CDT) HepBsAg NONREACT NONREACTIVE 05/16/2014 6:50 PM [facility] HISTORICAL RESULTS Comment: Siemens CentaurXP using AVRIL (chemiluminescent immunoassay) technology. NONREACTIVE: IgM antibodies to Hepatitis B Surface antigen not detected. REACTIVE: IgM antibodies to Hepatitis B Surface antigen detected. Reactive results will be confirmed by neutralization testing. HBsAb (immune status) NONREACT NONREACTIVE Comment: Siemens CentaurXP using AVRIL (chemiluminescent immunoassay) technology. NONREACTIVE: IgM antibodies to Hepatitis B Surface antibody not detected. REACTIVE: IgM antibodies to Hepatitis B Surface antibody detected. Hep B core IgM NONREACT NONREACTIVE 4 7:07 PM [facility] HISTORICAL RESULTS Comment: Siemens CentaurXP using AVRIL (chemiluminescent immunoassay) technology. NONREACTIVE: IgM antibodies to Hepatitis B Core antigen not detected. EQUIVOCAL: IgM antibodies to Hepatitis B Core antigen may or may not be present. Obtain a new specimen and retest. REACTIVE: IgM antibodies to Hepatitis B Core antigen detected. Hep A IgM NONREACT NONREACTIVE 05/16/2014 7:07 PM [facility] HISTORICAL RESULTS Comment: Siemens CentaurXP using AVRIL (chemiluminescent immunoassay) technology. NONREACTIVE: IgM antibodies to Hepatitis A not detected. This does not exclude possibility of exposure to Hepatitis A or early acute infection. EQUIVOCAL:IgM antibodies to Hepatitis A may or may not be present. Suggest recollection and retest. REACTIVE: Antibodies to Hepatitis A detected. Hep C Ab NONREACT NONREACTIVE 05/16/2014 7:07 PM [facility] HISTORICAL RESULTS Comment: Siemens CentaurXP using [...] MICROBIOLOGY - GENERAL O RDERABLES Final Result [facility] HISTORICAL RESULTS from Last 3 Months or Most Recently Relevant to Health Maintenance Insurance Advance Directives For more information, please contact: [phone] Documents on File Type Date Recorded Patient Process Development Manager Expl anation ADVANCE DIRECTIVE 04/29/2023 4:00 PM DNR ADVANCE DIRECTIVE 04/26/2023 4:27 PM POWER OF DOCKING PILOT-MEDICAL Power of Audiology Technician 04/24/2023 8:00 AM * Full Code [...] 12:32 PM 04/26/2023 12:17 AM Care Teams Dogger Relationship Specialty Start Date End Date Eli Abbott MD [address] [address] PCP - General Obstetrics and Gynecology 10/07/24 [place] [id number] [address] Consulting Physician Gastroenterology 12/22/22 [place] [id number] [address] Consulting Physician Neurosurgery 09/16/23 Dalton Fragoso MD [address] [place] [address] Referring Physician Psychiatry & Neurology 09/16/23
--- OUTSIDE RECORDS SUMMARY | 2024-11-25 22:01 | XMS_ITS ---
Author Organization [facility] Address [address] [place] [address] Phone Care Team Providers Care Market Risk Specialist Name Role Phone DUANE COPE MD Primary Care Provider [phone] Plan of Treatment No Plan of Treatment Recorded Assessments Includes: Assessments for all patient encounters Findings Encounter Date Bulging lumbar disc PAIN MANAGEMENT NEW CONSULT with CORTEZ HAMILTON 04/29/2023 Last Documented On 3 2:16PM ; [facility] Lumbar spondylosis with radiculopathy PA IN MANAGEMENT NEW CONSULT with CORTEZ HAMILTON 04/29/2023 Last Documented On 3 2:16PM ; [facility] SPINAL STENOSIS LUMBAR REGIO N W/O NEUROGENIC CLAUDICATION PAIN MANAGEMENT NEW CONSULT with CORTEZ HAMILTON 04/29/2023 Last Documented On 3 2:16PM ; [facility] Medical Equipment - Implanted Devices Includes: Current and historical Devices No Medical Equipment Recorded Medications Includes: Current and historical Medications Current Medications (continue as prescribed) Pregabalin 150 MG Oral Capsule 05/30/2023 Provider: CORTEZ HAMILTON Diagnosis: Other spondylosi s with radiculopathy, lumbar region 1 CAPSULE TWO TIMES A DAY Last Documented On 3 11:19AM By CORTEZ HAMILTON ; [facility] Lacosamide 100 MG Oral Tablet 04/29/2023 Provider: JOANIE MAHER MD Diagnosis: Last Documented On 04/29/2023 2:00PM By Amy ACEVEDO ; [facility] Biofreeze 4% External Gel 04/29/2023 Provider: Diagnosis: Last Documented On 04/29/2023 2:03PM By Amy ACEVEDO ; [facility] Naproxen 500 MG Oral Tablet 04/29/2023 Provider: Diagnosis: bid Last Documented On 3 2:32PM By CORTEZ HAMILTON ; [facility] Nucynta ER 100 MG Oral Tablet Extended Release 12 Hour 04/29/2023 Provider: CORTEZ AVENDAÑO Diagnosis: Other spondylosi s with radiculopathy, lumbar region 1 tab every 12 hours by mouth Last Documented On 3 2:58PM By CORTEZ HAMLITON ; [facility] HYDROmorphone HCl 2 MG Oral Tablet 04/25/2023 Provid er: Diagnosis: Last Documented On 04/29/2023 2:00PM By Amy ACEVEDO ; [facility] Cyclobenzaprine HCl 10 MG Oral Tablet 04/11/2023 Pro vider: KIAN MEDEROS MD Diagnosis: Last Documented On 04/29/2023 2:01PM By Amy ACEVEDO ; [facility] levETIRAcetam 1000 MG Oral Tablet 03/19/2023 Provide r: DUANE COPE MD Diagnosis: Last Documented On 04/29/2023 2:01PM By Amy ACEVEDO ; [facility] Past Medications on file Pregabalin 150 MG Oral Capsule 04/29/2023 - 05/30/2023 Provider: CORTEZ HAMILTON Diagnosis: Other spondylosi s with radiculopathy, lumbar region 1 CAPSULE TWO TIMES A DAYstop gabapentin Last Documented On 3 11:15AM By CORTEZ HAMILTON ; [facility] Gabapentin 600 MG Oral Tablet 04/25/2023 - 05/30/2023 Provider: Diagnosis: Last Documented On 3 11:14AM By CORTEZ HAMILTON ; [facility] Medications Administered Includes: Administered Medications in patient's chart No Administered Medications Recorded Results Includes: Results from 11/26/2023 through 11/25/2024 No Results Recorded For Specified Dates History of Present Illness History of Present Illness not supported for this document type No History of Present Illness Recorded Social History Description Last Updated Difficulty walking 04/29/2023 Last Documented On 3 2:16PM ; [facility] No consumption of alcohol 04/29/2023 Last Documented On 3 2:16PM ; [facility] Not using drugs 04/29/2023 Last Documented On 3 2:16PM ; [facility] Smoking packs of cigarettes per day 1/2 pack 04/29/2023 Last Documented On 3 2:16PM ; [facility] Smoking Status Unknown Procedures and Surgical History Surgical History Last Updated No Pacemaker 04/29/2023 Last Documented On 3 2:16PM ; [facility] Surgical / procedural history BJ multip le dates 04/29/2023 Last Documented On 3 2:16PM ; [facility] Medical History Includes: Medical History in patient's chart Description Last Updated Back brace 04/29/2023 Last Documented On 3 2:16PM ; [facility] CT/MRI BJ multiple dates 04/29/2023 Last Documented On 3 2:16PM ; [facility] Injection/Nerve blocks 04/29/2023 Last Documented On 3 2:16PM ; [facility] Moderate to severe pain 04/29/2023 Last Documented On 3 2:16PM ; [facility] NCV/EMG BJ multiple dates 04/29/2023 Last Documented On 3 2:16PM ; [facility] No Pain Pump 04/29/2023 Last Documented On 3 2:16PM ; [facility] No Spinal cord stimulator 04/29/2023 Last Documented On 3 2:16PM ; [facility] Other method: 04/29/2023 Last Documented On 3 2:16PM ; [facility] Physical therapy 04/29/2023 Last Documented On 3 2:16PM ; [facility] Please list all illnesses/co nditions you have been diagnosed with: Broken bones in back and may have MS 04/29/2023 Last Documented On 3 2:16PM ; [facility] Please list all surgeries: Please ask Last Documented On 3 2:16PM ; [facility] X-rays [facility] multiple dates 04/29/2023 Last Documented On 3 2:16PM ; [facility] Family History Includes: Family History in patient's chart Description Last Updated Family history of ischemic heart disease 04/29/2023 Last Documented On 3 2:16PM ; [facility] Family history of stroke/paralysis 04/29 Last Documented On 3 2:16PM ; [facility] Fraternal history of Arthritis 3 Last Documented On 3 2:16PM ; [facility] Maternal history of Arthritis 04/29/2023 Last Documented On 3 2:16PM ; [facility] Maternal history of family history of is chemic heart disease 04/29/2023 Last Documented On 3 2:16PM ; [facility] Paternal history of family history of is chemic heart disease 04/29/2023 Last Documented On 3 2:16PM ; [facility] Paternal history of stroke/paralysis Last Documented On 3 2:16PM ; [facility] Reported family history of seizures 04/06 Last Documented On 3 2:16PM ; [facility] Sororal history of family history of isc hemic heart disease 04/29/2023 Last Documented On 3 2:16PM ; [facility] Review of Systems Review of Systems not [...] tive Last Documented On 04/29/2023 2:02PM ; [facility] Note: LIVER PAIN oxyCODONE HCl Allergy Vomiting 04/29/2023 Activ e Last Documented On 3 2:02PM ; [facility] Insurance Includes: Active Insurance Policies Plan Name Member ID Group # Subscriber Relationship Effect larry Dates 1 - [facility] [id number] BHARAT MCNAIR Self Clinical Notes Includes: Signed Clinical Notes starting from 08/24/2022 No Clinical Notes Recorded
--- NOTE | 2024-11-25 22:35 | ED_ITS ---
HPI - General Adult General Chief complaint: Chest Pain Stated complaint: chest pain, SOB Time Seen by Provider: 11/25/24 21:38 History of Present Illness HPI narrative: This is a 44-year-old female presenting ED with chief complaint of chest pain. Patient said the pain started around 3:00 a.m. today while she was working yd. She described as crushing. Is nonradiating, 8 out 10 intensity comes and goes. She says she has had pain like this in the past. Pain is worse with deep chas aths. It is associated with nausea but no vomiting. No diaphoresis fevers cough or shortness of breath. No lower extremity edema. Patient recently had her child and grandchild moved back in with her which is causing her significant amount of stress/lack of sleep. Related Data Home Medications ?Medication ?Instructions ?Recorded ?Confirmed ?Last Taken ?Type albuterol sulfate 2.5 mg/3 mL 2.5 mg inhalation Q3H 12/21/23 12/21/23 Unknown History (0.083 %) solution for nebulization albuterol sulfate 90 mcg/actuation 2 puff inhalation Q4H wheezing 12/21/23 12/21/23 Unknown History aerosol inhaler carbamazepine 100 mg 200 mg PO BID 12/21/23 12/21/23 Unknown History capsule,extended release [id number] cefepime 1 gram intravenous 2 g IV Q8H 12/21/23 12/21/23 Unknown History piggyback cyclobenzaprine 10 mg tablet 10 mg PO TID PRN Muscle Spasm 12/21/23 12/21/23 Unknown History lisinopril 10 mg tablet 5 mg PO DAILY 12/21/23 12/21/23 Unknown History metronidazole 500 mg tablet 500 mg PO Q8H 12/21/23 12/21/23 Unknown History ondansetron 4 mg disintegrating 4 mg PO Q6H PRN Nausea And Vomiting 12/21/23 12/21/23 Unknown History tablet vancomycin 1 gram/100 mL in 0.9 % 1 g IV Q12H 12/21/23 12/21/23 Unknown History sodium chloride intravenous solution Allergies Allergy/AdvReac Type Severity Reaction Status Date / Time ceftriaxone Allergy Severe Anaphylactic Verified 11/25/24 21:27 Shock fentanyl Allergy Severe Stopped Verified 11/25/24 21:27 Breathing Iodinated Contrast Media Allergy Intermediate Hives/RED Verified 11/25/24 21:27 FACE ciprofloxacin Allergy Mild RASH Verified 11/25/24 21:27 codeine Allergy Mild SEVERE Verified 11/25/24 21:27 DROWSINESS venom-honey bee Allergy Mild RASH Verified 11/25/24 21:27 levofloxacin Allergy Unknown Unknown Verified 11/25/24 21:27 Sulfa (Sulfonamide Allergy Unknown Unknown Verified 11/25/24 21:27 Antibiotics) morphine Allergy Stopped Verified 11/25/24 21:27 Breathing propofol AdvReac Severe seizures Verified 11/25/24 21:27 [facility] Past Medical History Medical History Acute blood loss anemia NSAID long-term use Osteomyelitis of lumbar spine Seizures Deep venous thrombosis Diet-controlled type 2 diabetes mellitus Chronic obstructive pulmonary disease Tobacco user Anxiety and depression Kidney stone Endometriosis Uterine cancer Asthma Surgical History Surgical History History of laminectomy (11/2023) L4-S1 per Dr. Skelton at [facility] complicated by hematoma and infection. History of Jennifer-en-Y gastric bypass History of hysterectomy for cancer History of tonsillectomy History of hysterectomy History of lobectomy of lung Right upper lobe for precancerous nodule Family History Family History Other Unknown family medical history Social History Social History Social History: Surrogate medical decision maker: Kathie Irvin, mother. Code status: Full code. Smoking packs per day: 0.5 Smoking cigarettes per day: 10.0 Years smoked: 31 Smoking pack-years: 15.50 Smoking status: Current every day smoker Tobacco type: cigarettes Alcohol intake: unknown Substance use: unknown Do You Feel Safe in your Home?: Yes Lack of Transportation: No Lack of Food: Often True Current Housing: I Have Housing Concerned About Future Housing: No Difficulty Paying Gas/Electric Bills: YES Difficulty Paying for Meds: No Currently Unemployed: Decline to Answer Education: Trade/Vocational Certificate Difficulty w/ Childcare or Family Care: No Spiritual care concerns: No Exam Narrative: APPEARANCE: No apparent distress. Patient is laughing and smiling during the interview Head: atraumatic. EYES: EOMI, NOSE: Atraumatic NECK: Trachea midline RESPIRATORY: No increased rate of breathing CTAB CARDIOVASCULAR: RRR, no peripheral edema, +2 pulses in all extremities ABDOMINAL: Non-distended soft nontender no guarding rebound MUSCULOSKELETAl: No obvious deformities NEURO: Alert. Moving 4/4 extremities SKIN:: Warm, dry. Normal color PSYCHIATRIC: Normal affect Course Vital Signs Vital signs: Vital Signs Temperature 98.2 F 11/25/24 21:28 Pulse Rate 95 11/25/24 21:28 Respiratory Rate 16 11/25/24 21:28 Blood Pressure 153/88 H 11/25/24 21:28 Pulse Oximetry 100 11/25/24 21:28 Oxygen Delivery Room Air 11/25/24 21:28 Temperature 98.2 F 11/25/24 21:28 Pulse Rate 86 11/25/24 21:50 Respiratory Rate 20 11/25/24 21:50 Blood Pressure 121/88 11/25/24 21:50 Pulse Oximetry 95 11/25/24 21:50 Oxygen Delivery Room Air 11/25/24 21:48 Medical Decision Making [facility] Narrative Medical decision making narrative: -Course: 44-year-old female presenting with chest pain. She is in no distress. Vital signs are stable. Workup including laboratory studies, EKG, chest x-ray, CT PE and troponins x2 were unremarkable. Patient was sleeping throughout her stay. Results were discussed patient and she is comfortable following up with her primary care physician for further management. -DDX includes but is not limited to: ACS, PE, pleurisy, pneumonia, pneumothorax, dissection Independent EKG interpretation: Rhythm [sinus], Rate [86], [place] -[normal], [place] -[normal], QRS [narrow], QTC [normal], T waves -[negative for concerning inversions], ST Segments - [Negative for concerning elevations] Final interpretations: [Normal Sinus Rhythm] Vital Signs Vital Signs: Vital Signs Temperature 98.2 F 11/25/24 21:28 Pulse Rate 95 11/25/24 21:28 Respiratory Rate 16 11/25/24 21:28 Blood Pressure 153/88 H 11/25/24 21:28 Pulse Oximetry 100 11/25/24 21:28 Oxygen Delivery Room Air 11/25/24 21:28 Temperature 98.2 F 04/23/25 21:28 Pulse Rate 86 11/25/24 21:50 Respiratory Rate 20 11/25/24 21:50 Blood Pressure 121/88 11/25/24 21:50 Pulse Oximetry 95 11/25/24 21:50 Oxygen Delivery Room Air 11/25/24 21:48 Discharge Plan Discharge Clinical Impression: Chest pain Patient Disposition: Home Condition: Stable Instructions: Antibiotic Form, Chest Pain (ED) Additional Instructions: You were seen for chest pain. Your workup here including laboratory studies, EKG, CT PE, chest x-ray were all negative. Please follow-up with your primary care physician for further management. Please take Tylenol as needed for pain. If you develop any new or worsening symptoms please return emergency department for re-evaluation Patient Language: St Helen[place] Prescriptions: No Action metronidazole 500 mg tablet 500 mg PO Q8H lisinopril 10 mg tablet 5 mg PO DAILY carbamazepine 100 mg capsule, ER multiphase 12 hr 200 mg PO BID cyclobenzaprine 10 mg tablet 10 mg PO TID PRN (Reason: Muscle Spasm) Rx Instructions: no driving or alcohol while taking albuterol sulfate 2.5 mg /3 mL (0.083 %) Solution For Nebulization 2.5 mg inhalation Q3H albuterol sulfate 90 mcg/actuation HFA aerosol inhaler 2 puff INHALATION Q4H ondansetron [Zofran ODT] 4 mg Tablet,Disintegrating 4 mg PO Q6H PRN (Reason: Nausea And Vomiting) cefepime 1 gram Piggyback 2 g IV Q8H vancomycin in 0.9 % sodium chl 1 gram/100 mL Solution 1 g IV Q12H nitrofurantoin monohyd/m-cryst [Macrobid] 100 mg capsule 100 mg PO Q12H 5 Days Qty: 10 0RF Rx Instructions: must administer with a meal/food Follow-up/Referrals: Scar,Eli Zambrano MD [Primary Care Provider] - Quality HEART score for chest pain patients History: slightly suspicious ECG: normal Age: > 45 and < 65 years Risk factors: 1 or 2 risk factors Troponin: < or = to 1x normal limit Heart score: 2
[2024-11-25 22:51] LABS: Basophils Percent Auto 0.4 % (0.2-1.2); Eosinophils Absolute Auto 0.2 K/mm3 (0-0.3); Eosinophils Percent Auto 2.4 % (0-4.4); Hematocrit 32.5 % (37.0-47.0); Hemoglobin 9.8 g/dL (12.0-15.0); Immature Granulocyte Absolute 0.02 K/mm3 (0.00-0.031); Immature Granulocyte Percent A 0.2 % (0-0.5); Lymphocytes Percent Auto 24.3 % (18.3-44.2); Mean Corpuscular HGB Conc 30.2 g/dl (32-36); Mean Corpuscular Hemoglobin 24.3 pg (26-34); Mean Corpuscular Volume 80.6 fl (80-100); Mean Platelet Volume 9.7 fl (7.4-10.4); Monocytes Absolute Auto 0.6 K/mm3 (0.1-0.6); Monocytes Percent Auto 7.3 % (2.6-8.5); Neutrophils Absolute Auto 5.4 K/mm3 (1.3-6.7); Neutrophils Percent Auto 65.4 % (45.5-73.1); Platelet Count Result 368 k/mm3 (150-375); Red Blood Count 4.03 M/mm3 (4.2-5.4); Red Cell Distribution Width 16.7 % (11.5-14.5); White Blood Count 8.2 K/mm3 (4.5-10.0)
[2024-11-25] MEDS: KETOROLAC 15 MG/ML VIAL (*BKC) IV PUSH (22:52)
[2024-11-25] MEDS: methylPREDNISolone SOD SUCC 125 MG VIAL IV PUSH (22:52)
[2024-11-25] MEDS: diphenhydrAMINE HCl INJ 50 MG/ML VIAL IV PUSH (22:52)
[2024-11-25 23:01] LABS: Alanine Aminotransferase 24 U/L (6-35); Albumin Level 4.4 g/dL (3.5-5.1); Alkaline Phosphatase 122 U/L (38-126); Anion Gap 10 mmol/L (4-12); Aspartate Amino Transferase 44 U/L (14-36); Bilirubin,Total 0.1 mg/dL (0.2-1.3); Blood Urea Nitrogen 20 mg/dL (7-17); Calcium 9.2 mg/dL (8.4-10.2); Carbon Dioxide 23 mmol/L (22-30); Chloride 105 mmol/L (98-107); Estimated CRCL calculation 119 ml/min; Estimated Glomerular Filt Rate > 60; Glucose 90 mg/dL (65-110); Lipase 133 U/L (23-300); Potassium 4.2 mmol/L (3.4-5.0); Sodium 138 mmol/L (137-145)
[2024-11-25 23:06] LABS: INR 0.9; Prothrombin Time 12.6 Seconds (11.1-14.7)
[2024-11-25 23:07] LABS: Partial Thromboplastin Time 23.3 Seconds (22.3-36.8)
[2024-11-25 23:09] LABS: NT Pro B Type Natriuretic Pept 78 pg/mL (19.9-100)
[2024-11-25 23:11] LABS: Troponin I < 0.012 ng/mL (0.000-0.034)
[2024-11-25 23:25] LABS: Barbiturate Screen Urine Negative (Negative); Benzodiazepines Screen Urine Negative (Negative); Cannabinoid Screen Urine Negative (Negative); Cocaine Screen Urine Negative (Negative); Methadone Screen Urine Negative (Negative); Opiate Screen Urine Negative (Negative); Phencyclidine Screen Urine Negative (Negative)
[2024-11-25 23:38] LABS: Amphetamine Screen Urine Negative (Negative)
[2024-11-25 23:43] VITALS: BP 110/61; PULSE 61; RESP 20; O2SAT 98
--- NOTE | 2024-11-26 00:40 | PC.NURSE ---
Phlebotomy notified of need for troponin on this difficult stick.
--- NOTE | 2024-11-26 01:01 | ECG_ITS ---
Test Date: 2024-11-26 00:57:33 Measurements Intervals [place] Rate: 68 P: 52 KS: 203 QRS: 44 QRSD: 97 T: 51 QT: 387 QTc: 413 Interpretive Statements SINUS RHYTHM BASELINE ARTIFACT- I, II, III, AVR, AVL, AVF NORMAL ECG Compared to ECG 11/25/2024 21:33:39 No significant changes Electronically Signed On 11-27-2024 09:23:29 CDT by Justice Caldwell D.O.
[2024-11-26 01:16] VITALS: BP 128/90; PULSE 72; RESP 19; O2SAT 96
[2024-11-26 01:49] LABS: Troponin I < 0.012 ng/mL (0.000-0.034)
== END 2024-11-26 02:10 | disposition home or self-care (01) ==
PROVIDERS: Emergency Provider Emergency Medicine; PCP Family Medicine
DX: R07.9 Chest pain, unspecified (principal); F17.210 Nicotine dependence, cigarettes, uncomplicated; D50.0 Iron deficiency anemia secondary to blood loss (chronic); G40.909 Epilepsy, unspecified, not intractable, without status epilepticus; Z86.718 Personal history of other venous thrombosis and embolism; E11.9 Type 2 diabetes mellitus without complications; J44.9 Chronic obstructive pulmonary disease, unspecified; F41.9 Anxiety disorder, unspecified; F32.A Depression, unspecified; Z87.442 Personal history of urinary calculi
CPT/HCPCS: 36415; 71045; 71275; 80053; 80307; 83690; 83880; 84484; 85025; 85610; 85730; 93005; 96374; 96375; 99284; A9270; J1200; J1885; J2919; Q9967

== ENCOUNTER 2025-03-09 20:28 | Emergency (ER) | payer OTHER, SELFPAY ==
--- NOTE | ~2025-03-09 | CT_ITS ---
History: Post seizure with reported history of brain mass PROCEDURE: CT head without contrast. COMPARISON: 01/01/2007, CT examination of the head yielding benign results TECHNIQUE: Axial imaging of the head performed from the skull base to the vertex without IV contrast. Sagittal a nd coronal reformations obtained. DLP: 681 mGy-cm FINDINGS: The ventricles are normal in size, shape and position. There is no mass, mass effect or midline shift. Intracranial parenchyma is symmetric. There is no abnormal extra-axial fluid collection or intracranial hemorrhage. Visualized paranasal sinuses are clear. The mastoid air cells are well aerated. No acute displaced fractures within the overlying cranium. Impression: No acute intracranial hemorrhage or suspicious mass effect. Given patient's history, contrast-enhanced MRI is recommended, when the patient is clinically able. Reviewed, dictated and finalized at location A. Impression: No acute intracranial hemorrhage or suspicious mass effect. Given patient's history, contrast-enhanced MRI is recommended, when the patient is clinically able.
[2025-03-09 20:31] VITALS: BP 145/88; PULSE 77; RESP 20; TEMP 36.6; O2SAT 100
[2025-03-09] MEDS: levETIRAcetam 1500MG/NACL100ML 1,500 MG/100 ML BAG 400 MG IVPB (20:52)
[2025-03-09 21:04] LABS: Hematocrit 33.2 % (37.0-47.0); Hemoglobin 10.2 g/dL (12.0-15.0); Immature Granulocyte Percent A 0.3 % (0-0.5); Lymphocytes Absolute Auto 2.08 K/mm3 (0.9-3.2); Mean Corpuscular HGB Conc 30.7 g/dl (32-36); Mean Corpuscular Hemoglobin 22.9 pg (26-34); Mean Corpuscular Volume 74.6 fl (80-100); Nucleated Red Blood Cells Absolute Auto 0.000 K/mm3 (0.0-0.012); Nucleated Red Blood Cells Perc 0.0 % (0.0-0.2); Platelet Count Result 357 k/mm3 (150-375); Red Blood Count 4.45 M/mm3 (4.2-5.4); White Blood Count 6.8 K/mm3 (4.5-10.0)
--- OUTSIDE RECORDS SUMMARY | 2025-03-09 21:26 | XMS_ITS | Encounter Summary ---
Author Organization [employer] Address 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
--- OUTSIDE RECORDS SUMMARY | 2025-03-09 21:26 | XMS_ITS | Encounter Summary ---
Author Organization [facility] Address [address] [place] [address] Care Team Providers Care Concrete Block Plant Supervisor Name Role Phone Ally Chambers RN Unavailable [phone] Eli Abbott MD Primary Care Provider [phone] Encounter Details Date Type Department Care Team (Late st Contact Info) Description 11/24/2024 Telephone [facility] - Neurology [address] [place] [address], [place] [address] Charanjit Jackson MD [address] [place] [phone] Social History Tobacco Use Types Packs/Day [...] Recorded Patient Health Questionnaire-2 Score 0 04/27/2024 [facility] Occupat [facility] - Occupational Stress Questionnaire Answer [...] place to sleep or slept in a senior living (including now)? 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 Patient Call Back Number: [phone] documented in this encounter Plan of Treatment Upcoming Encounters Date Type Department Care Team (Late st Contact Info) Description 04/08/2025 1:00 PM CDT Office Visit [facility] - Neurology [address] [place] [phone] Karen Ahumada APRN-[address] [address] 08/24/2025 11:30 AM COST ANALYST Office Visit [facility] - Neurology [address] [place] [phone] Charanjit Jackson MD [address] [place] [address] [place] [address] documented as of this encounter Visit Diagnoses Not on filedocumented in this encounter Care Teams Concrete Block Plant Supervisor Relationship Specialty Start Date End Date Eli Abbott MD [address] [place] [phone] PCP - General Family Medicine 11/24/24 Ally Chambers, RN Microbiology Technician 09/12/16 documented as of this encounter
--- OUTSIDE RECORDS SUMMARY | 2025-03-09 21:26 | XMS_ITS | Clinical Summary ---
Author Organization [facility] Address [address] [place] [address] Care Team Providers Care Mangle Press Catcher Name Role Phone Eli Abbott MD Primary Care Provider [phone] Allergies Active Allergy Reactions Criticality Noted Date [...] hours as needed for Wheezing (COUGH). 3 9 Active cyanocobalamin (B-12) 1000 MCG/ML injection Active naproxen (NAPROSYN) 250 MG tablet Take 1 tablet (250 mg total) by mouth. Active rosuvastatin (CRESTOR) 20 MG tablet Take 1 tablet (20 mg total) by mouth nightly at bedtime. Active carBAMazepine (TEGRETOL) 200 MG tablet Take 1 tablet (200 mg total) by mouth 2 (two) times daily. Active Brivaracetam (BRIVIACT) 100 MG Tab Take 100 mg by mouth 2 (two) times a day. Active midazolam (VERSED) 5 mg/mL 0.1 mLs (0.5 mg total) by Nasal route once. Active traMADol (ULTRAM) 50 MG tabletIndicatio ns:Acute Pain < 7 Day Supply Take 1 tablet (50 mg total) by mouth every 6 (six) hours as needed. Indications: Acute Pain < 7 Day Supply 20 tablet Active naloxone (NARCAN) 4 MG/0.1ML nasal spray 1 spray by Nasal route as needed for Opioid reversal. may repeat every 2 to 3 minutes in alternating nostrils until medical assistance becomes available 1 each 5 12/02/19 26 Active Encounters Date Type Department Care Team Description 01/07/2025 Green Plug Message Enc [facility] Medical Group Call Center [address] [place] [address] Ignacio [facility] Provider naloxone (NARCAN) 4 MG/0.1ML nasal spray 12/31/2024 12:06 AM CDT - 12/31/2024 2:12 AM CDT Emergency [facility] Emergency Room [address] [place] [address] Freida Adorno DO Fall Discharge Disposition: Home or Self Care (Routine Discharge) 12/30/2024 Travel from Last 3 Months Social History Tobacco Use Types Packs/Day Years [...] Value Date Recorded Sex Assigned at Female 12/01/2024 2:24 PM CDT Legal Sex Female 7:33 PM CDT Gender Identity Female 12/01/2024 2:24 PM CDT Sexual Orientation Not on file Last Filed Vital Signs Vital Sign Reading Time Taken Comments Blood Pressure 106/73 12/31/2024 2:00 AM CDT Pulse 90 12/31/2024 12:11 AM CDT Temperature 36.9 C (98.4 F) 12/31/2024 12:11 AM CDT Respiratory Rate 22 12/31/2024 12:11 AM CDT Oxygen Saturation 100% 12/31/2024 2:00 AM CDT Inhaled Oxygen Concentration - - Weight 109.3 kg (241 lb) 12/31/2024 12:11 AM CDT Height 190.5 cm (6' 3) 12/31/2024 12:11 AM CDT Body Mass Index 30.12 12/31/2024 12:11 AM CDT Plan of Treatment Health Maintenance Due Date Last Done Comments Colorectal Cancer Screening Colonoscopy (10 Years) 1978 Annual Physical 1981 Hepatitis B Vaccines (1 of 3 - 19+ 3-dose series) 1997 Pneumococcal Vaccine: Pediatrics (0 to 5 Years) and At-Risk Patients (6 to 49 Years) (1 of 2 - PCV) 1997 COVID-19 Vaccine (2023-2 5 season) 2024 PHQ-2 (Physician [place]) 08/05/2024 Mammogram Screening 11/02/2026 11/02/2024, 10/31/2023 DTaP, Tdap and Td Vaccines ( 3 - Td or Tdap) 02/04/2034 02/05/2024, 03/27/2021 Hepatitis C Completed 05/07/2013 Meningococcal B Vaccine Aged Out No l onger eligible based on patient's age to complete this topic Meningococcal Vaccine Aged Out No rohan micheal eligible based on patient's age to complete this topic RSV Immunizations Under 20 Months Aged Out No longer eligible b ased on patient's age to complete this topic Procedures Procedure Name Priority Date/Time Associated Diagnosis Comments CBC W/DIFF AUTOMATED STAT 12/31/2024 12:51 AM CDT CK (CPK) Routine 12/31/2024 12:25 AM CDT MAGNESIUM STAT 12/31/2024 12:25 AM CDT BASIC METABOLIC PANEL STAT 12/31/2024 12:25 AM CDT from Last 3 Months Results * (ABNORMAL) CBC W/DIFF AUTOMATED (12/31/2024 12:51 AM CDT) WBC 9.86 4.4 - 11.0 x10'3/uL 12/31/2024 1:[address] [facility] RBC 4.18(L) 4.50 - 5.10 x10'6/uL 12/31/2024 1:[address] [facility] HGB 10.2(L) 12.3 - 15.3 G/DL 12/31/2024 1:11 AM [facility] HCT 32.3(L) 35.9 - 44.6 % 12/31/2024 1:[address] [facility] MCV 77.3(L) 80.0 - 96.0 FL 12/31/2024 1:11 AM [facility] MCH 24.4(L) 25.3 - 30.9 PG 12/31/2024 1:11 AM [facility] MCHC 31.6 31.0 - 34.1 G/DL 12/31/2024 1:11 AM [facility] RDW 15.1 12.4 - 15.1 % 12/31/2024 1:11 AM [facility] PLT 378(H) 151 - 353 x10'3/uL 12/31/2024 1:[address] [facility] MPV 9.8 9.6 - 12.0 FL 12/31/2024 1:11 AM [facility] RBC MORPHOLOGY NORMAL 12/31/2024 1:[address] [facility] PLT MORPH. NORMAL 12/31/2024 1:11 AM [facility] WBC MORPHOLOGY NORMAL 12/31/2024 1:[address] [facility] LYMPHOCYTES % 22.7 15.8 - 45.0 % 12/31/2024 1:[address] [facility] NEUTROPHILS % 67.8 42.1 - 71.9 % 12/31/2024 1:[address] [facility] MONOCYTES % 7.1 5.7 - 12.5 % 12/31/2024 1:[address] [facility] EOSINOPHILS 1.0 0.0 - 5.6 % 12/31/2024 1:[address] [facility] BASOPHILS 0.5 0.0 - 1.3 % 12/31/2024 1:[address] [facility] ABS. NEUTROPHILS 6.68(H) 1.40 - 6.00 x10'3/uL 12/31/2024 1:[address] [facility] IMMATURE GRANS % 0.9(H) 0.0 - 0.5 % 12/31/2024 1:[address] [facility] ABS. LYMPHOCYTES 2.24 0.80 - 4.70 x10'3/uL 12/31/2024 1:[address] [facility] 12/31/2024 12:5 1 AM CDT Freida Adorno DO LABORATORY Final Result Performing Organization Address City/State/[facility] Co de Phone Number [facility] [address] [place] [address], * (ABNORMAL) BASIC METABOLIC PANEL (12/31/2024 12:25 AM CDT) GLUCOSE 77 70 - 99 MG/DL 12/31/2024 1:[address] [facility] BUN 22(H) 7 - 18 MG/DL 12/31/2024 1:[address] [facility] CREATININE S/P/B 0.83 0.55 - 1.02 MG/DL 12/31/2024 1:[address] [facility] SODIUM S/P/B 136 136 - 145 MMOL/L 12/31/2024 1:[address] [facility] POTASSIUM S/P/B 5.2(H) 3.5 - 5.1 MMOL/L 12/31/2024 1:[address] [facility] CHLORIDE S/P/B 101 100 - 108 MMOL/L 12/31/2024 1:[address] [facility] CO2 23.1 21 - 32 MMOL/L 12/31/2024 1:[address] [facility] CALCIUM S/P/B 9.2 8.5 - 10.1 MG/DL 12/31/2024 1:[address] [facility] ANION GAP 11.9 5 - 15 MMOL/L 12/31/2024 1:[address] [facility] BUN CREATININE RATIO 26.5(H) 6 - 26 12/31/2024 1:[address] [facility] GFR ESTIMATE 88(L) >90 ML/MIN/1.7 3 M2 12/31/2024 1:[address] [facility] Comment: NOTE: eGFR is not calculated for patients <18 years of age. This is an estimated GFR calculation using the new CKD EPI creatinine equation without race and so does not require a correction factor for race. This estimated GFR should not be used for calculating drug doses. 12/31/2024 12:2 5 AM CDT us Freida Adorno DO LABORATORY Final Result [facility] [address] [place] [address], [place] [phone] * MAGNESIUM (12/31/2024 12:25 AM CDT) MAGNESIUM 2.1 1.8 - 2.4 MG/DL 12/31/2024 1:[address] [facility] 12/31/2024 12:2 5 AM CDT Freida [facility] LABORATORY Final Result Performing Organization Address [facility] Co de Phone Number [facility] [address] [place] [address], [place] [phone] * (ABNORMAL) CK (CPK) (12/31/2024 12:25 AM CDT) CPK 203(H) 26 - 192 U/L 12/31/2024 1:[address] [facility] 12/31/2024 12:2 5 AM CDT Freida Adorno LABORATORY Final Result Performing Organization Address [facility] de Phone Number [facility] [address] [place] [address], [place] [phone] from Last 3 Months Insurance [employer] Care Teams Mangle Press Catcher Relationship Specialty Start Date End Date Eli Abbott MD [address] [place] [phone] PCP - General FAMILY PRACTICE 12/01/24
--- OUTSIDE RECORDS SUMMARY | 2025-03-09 21:26 | XMS_ITS | Encounter Summary ---
Author Organization [employer] Address [address] [place] [address] Care Team Providers Care Bindery Technician Name Role Phone Brett Chávez MD Primary Care Provider + Encounter Details Date Type Department Care Team (Late st Contact Info) Description 06/07/2003 Emergency [facility] Rodo Ann MD [address] [place] [address] [place] [address] Er, Authorized P NO ADDRESS ON FILE DEPRESSIVE DISORDER NEC (Primary Dx) Social History Tobacco Use Types Packs/Day Years Used Date Smoking Tobacco: Never Assessed Comments Unknown Sex and Gender Information Value Date Recorded Sex Assigned at Not on file Legal Sex Female 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
--- OUTSIDE RECORDS SUMMARY | 2025-03-09 21:26 | XMS_ITS | Encounter Summary ---
Author Organization [facility] Address [facility] [place] [address] Care Team Providers Care Boxer Operator Name Role Phone Eli Abbott MD Primary Care Provider [phone] Encounter Details Date Type Department Care Team (Late st Contact Info) Description 01/07/2025 [place] [employer] direct marketing concepts Message Enc [facility] Medical Group Call Center [address] [place] [phone] [facility] Provider naloxone (NARCAN) 4 MG/0.1ML nasal spray Social History Tobacco Use Types Packs/Day Years Used Date Smoking Tobacco: Every Day Cigarettes 0.5 29 Smokeless Tobacco: Never Alcohol Use Standard Drinks/Week [...] on filedocumented in this encounter Care Teams Boxer Operator Relationship Specialty Start Date End Date Eli Abbott MD [address] [place] [phone] PCP - General FAMILY PRACTICE 12/01/24 documented as of this encounter
--- OUTSIDE RECORDS SUMMARY | 2025-03-09 21:27 | XMS_ITS ---
Author Organization [facility] Address [address] [place] [address] Phone Care Team Providers Care Buncher Operator Name Role Phone Jn Polo PAC Unavailable [phone] Eli Abbott MD Primary Care Provider [phone] OnCall Chronic Condition Monitoring Status:Enrolled (Active) Start date:07/17/2023 Enrollment date:07/18/2023 Current support & services provided:Asthma Management, COPD Management Related social drivers of health:Intimate Partner Violence, Social Connections, Alcohol Use, Tobacco Use, Financial Resource Strain,Depression, Stress, Physical Activity, Food Insecurity, Transportation Needs, Housing Stability, Utilities Continued Care and Services Coordination
--- OUTSIDE RECORDS SUMMARY | 2025-03-09 21:27 | XMS_ITS | Encounter Summary ---
Author Organization [facility] Address [address] [place] [address] Care Team Providers Care Assistant Project Manager Name Role Phone Reyes, Ally Dunn RN Unavailable [phone] Brett Chávez MD Primary Care Provider [phone] Eli Abbott MD Primary Care Provider [phone] Reason for Visit * Reason Onset Date Comments MEDICATION REFILL 01/28/2024 Encounter Details Date Type Department Care Team (Late st Contact Info) Description 01/28/2024 Refill [facility] - Infectious Disease [address] [place] [address], [place] [phone] Bernadette Watson MD [address] [place] [address] [place] [address] MEDICATION REFILL Social History Tobacco Use Types [...] Health Questionnaire-2 Score 0 01/10/2024 [facility] of Occupat ional Health - Occupational Stress [...] place to sleep or slept in a assisted (including now)? Patient declined 12/13/2023 Comments No Sex and Gender Information Value Date Recorded Sex Assigned at Not on file Legal Sex Female 6:21 AM COSTUME SHOP MANAGER Gender Identity Not on file Sexual Orientation [...] Description 04/08/2025 1:00 PM CDT Office Visit [facility] - Neurology [address] [place] [phone] Karen Ahumada APRN-WINSOME [address] [place] [phone] 08/24/2025 11:30 AM COSTUME SHOP MANAGER Office Visit [facility] - Neurology [address] [place] [phone] Charanjit Jackson MD [address] [facility] [place] [phone] documented as of this encounter Visit Diagnoses Diagnosis Surgical site infection Lumbar pain Lumbago documented in this encounter Additional Health Concerns Infection Onset Date Last Indicated Resolved Time COVID-19 Under Investigation 10/08/2024 10/08/2024 10/08/2024 7:57 PM COSTUME SHOP MANAGER documented as of this encounter Care Teams Assistant Project Manager Relationship Specialty Start Date End Date Brett Chávez MD [address] [place] [phone] PCP - General 08/23/22 11/23/24 Eli Abbott MD [address] [facility] [address] [place] [address] PCP - General Family Medicine 11/24/24 Ally Chambers, RN Mat Machine Operator 09/12/16 documented as of this encounter
--- OUTSIDE RECORDS SUMMARY | 2025-03-09 21:27 | XMS_ITS | Clinical Summary ---
Author Organization [facility] Address [address] [facility] [place] [address] Care Team Providers Care Delineator Name Role Phone lAly Chambers RN Unavailable [phone] Eli Abbott MD Primary Care Provider [phone] Source Comments [facility],non-owned Affiliates and Associated Physician Practices is amultiple site organization consisting of ambulatory clinics and hospital sitesin [place], [place], [place] and [place]. This disclosure is being madepursuant to the Care Everywhere program and may not contain all information available regarding this patient. Last updated 18.[facility] Allergies Active Allergy Reactions Criticality Noted [...] current medications with the patient. albuterol HFA (PROVENTIL;VENTOL IN;PROAIR) 108 (90 BASE) MCG/ACT inhaler Inhale 2 (two) puffs by mouth every 6 hours as needed for Shortness of Breath or Wheezing Active cyclobenzaprine (FLEXERIL) 10 MG tablet Take 1 Tab by mouth 3 times daily 30 Tab 09/14/19 17 Active lisinopril (Prinivil; Zestril) 10 MG tablet Take 0.5 (one-half) tablet by mouth once daily Active omeprazole (PriLOSEC) 20 MG capsuleIndication s:H. pylori infection Take 1 (one) capsule by mouth 2 times daily for 14 days 28 capsule 02/22/20 24 Active Additional Information Patient not taking.Reported on 01/06/2025 vitamin D, ergocalciferol, (Drisdol) 1.25 MG (55456 UT) capsule Take 1 (one) capsule by mouth every 30 days 01/17/20 24 Active hydrocortisone, rectal, (Anusol-HC) 2.5 % cream APPLY DAILY. APPLY TO RECTUM DIRECTED. 03/13/20 24 Active ketorolac (Toradol) 10 MG tablet Take 1 (one) tablet by mouth every 6 hours as needed 04/06/20 24 Active metoclopramide (Reglan) 10 MG tablet Take 1 (one) tablet by mouth 04/13/20 24 Active ondansetron, disintegrating, (Zofran ODT) 4 MG tablet Take 1 (one) tablet by mouth every 6 hours as needed for Nausea/Vomiting Allow tablet to dissolve on the tongue 12 tablet 09/19/19 25 Active Additional Information Patient not taking.Reported on 01/06/2025 oxyCODONE, immediate release, (Roxicodone) 5 MG tabletIndications :Musculoskeletal pain Take 1 (one) tablet by mouth every 6 hours as needed for Pain 20 tablet 09/19/19 25 Active brivaracetam (Briviact) 100 MG tabletIndications :Post traumatic epilepsy (HCC) Take 1 (one) tablet by mouth 2 times daily 60 tablet 5 11/20/19 25 Active eslicarbazepine (Aptiom) 600 MG tabletIndications :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) Take 2 (two) tablets by mouth at bedtime 60 tablet 5 01/12/20 25 Active cyanocobalamin (Vitamin B-12) 1000 MCG tablet Take 1 (one) tablet by mouth once daily 01/08/20 25 Active rosuvastatin (Crestor) 10 MG tablet Take 1 (one) tablet by mouth once daily 01/09/20 25 Active BD Eclipse Syringe 25G X 1 3 ML MISC USE DIRECTED TO INJECT B12 EVERY MONTH 01/10/20 25 Active midazolam (Nayzilam) 5 MG/0.1ML nasal sprayIndications: Post traumatic epilepsy (HCC) [place] 0.1 mL into the nose as needed for Seizures (Only if seizure occurres) 1 spray in the nostril for generalized convulsion lasting 5 minutes. To give second dosage if the seizure does not stop in the next 5 minutes and call EMS. Can also use for repetitive/clus ter of generalized convulsion. Do not exceed 2 dosages per day. 2 Each 03/04/20 25 Active pantoprazole EC (Protonix) 40 MG tablet Take 1 (one) tablet by mouth 2 times daily for 30 days 60 tablet 12/26/19 24 024 Discontin ued(Yes Pharm No AVS) midazolam (Nayzilam) 5 MG/0.1ML nasal sprayIndications: Post traumatic epilepsy (HCC) [place] 0.1 mL into the nose as needed for Seizures (Only if seizure occurres) 1 spray in the nostril for generalized convulsion lasting 5 minutes. To give second dosage if the seizure does not stop in the next 5 minutes and call EMS. Can also use for repetitive/clus ter of generalized convulsion. Do not exceed 2 dosages per day. 2 Each 10/22/19 25 025 Discontin ued(Reord er) Active Problems Problem Noted Date Diagnosed Date Upper GI bleed 10/08/2024 History of peptic ulcer disease 10/08/2024 Postoperative infection, uns pecified type, initial encounter 01/28/2024 Hematemesis, unspecified whether nausea present 01/01/2024 H/O laminectomy 12/31/2023 History of Jennifer-en-Y gastric bypass 12/31/2023 Melena 12/24/2023 Normocytic anemia 12/24/2023 Hematemesis with nausea 12/24/2023 PICC (peripherally inserted central catheter) [facility] 12/16/2023 Lumbar pain 12/12/2023 Abscess after procedure 12/12/2023 Seizures Anxiety Encounters Date Type Department Care Team Description 03/04/2025 Orders Only [facility] - Neurology [address] [place] [address], [place] [phone] Cindy Cline APRN-WINSOME Post traumatic epilepsy (HCC) 03/03/2025 4:00 PM CDT 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) 03/03/2025 Travel 01/12/2025 Telephone [facility] - Neurology [address] [place] [phone] Charanjit Jackson MD Medication Prior Auth Request (Eslicarbazepine) 01/07/2025 5:10 PM CDT - 01/07/2025 11:59 PM CDT Hospital Encounter [facility] MRI [address] [place] [address] Charanjit Jackson MD Discharge Disposition: Home or Self Care 01/07/2025 Travel 01/06/2025 2:00 PM CDT Office Visit [facility] - Neurology [address] [place] [phone] Charanjit Jackson MD 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 Gender Identity Not on file Sexual Orientation Not on file Last Filed Vital Signs Vital Sign Reading Time Taken Comments Blood Pressure 122/83 03/03/2025 3:15 PM CDT Pulse 91 01/06/2025 2:00 PM CDT Temperature 36.8 C (98.2 F) 12/05/2024 1:46 AM CDT Respiratory Rate 18 12/05/2024 1:46 AM CDT Oxygen Saturation 98% 01/06/2025 2:00 PM CDT Inhaled Oxygen Concentration - - Weight 107 kg (236 lb) 03/03/2025 3:15 PM CDT Height 190.5 cm (6' 3) 03/03/2025 3:15 PM CDT Body Mass Index 29.5 03/03/2025 3:15 PM CDT Plan of Treatment Upcoming Encounters Date Type Department Care Team (Late st Contact Info) Description 04/08/2025 1:00 PM CDT Office Visit [facility] - Neurology [address] [place] [phone] Karen Ahumada APRN-RAW MILL OPERATOR [address] [place] [phone] 08/24/2025 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 Office Visit [facility] - Neurology [address] [place] [phone] Charanjit Jackson MD [address] [place] [address] [place] [address] Health Maintenance Due Date Last Done Comments [...] 2024 DEPRESSION SCREENING 08/05/2024 01/10/2024 INFLUENZA VACCINE (#1) 2025 MAMMOGRAM 11/02/2026 11/02/2024, 10/05, 10/31/2023, Additional history exists SCREENING FOR DIABETES 02/12/2028 , 02/11/2025, 02/11/2025, Additional history exists ZOSTER VACCINE (1 of [...] Name Priority Date/Time Associated Diagnosis Comments MRI BRAIN WWO CONTRAST Routine 6:20 PM CDT White matter abnormality on MRI of brain COMPREHENSIVE METABOLIC PANEL STAT 12/05/2024 5:22 AM CDT HEPATITIS SCREEN ACUTE Routine 5:15 AM CDT from Last 3 Months or Most Recently Relevant to Health Maintenance Results * MRI Brain Wwo Contrast (01/07/2025 6:20 PM CDT) Anatomical Region Laterality Modality Head Magnetic Resonan ce 01/08/2025 10:0 0 AM CDT Impressions 01/08/2025 2:40 PM CDT IMPRESSION: 1.Previously described 6 x 5 mm T2 and FLAIR hyperintense focus in the right patten radiata without enhancement, likely related to chronic small vessel ischemic disease. No significant interval changes. No new lesions. 2.No acute intracranial process. Specifically, no acute infarct or acute intracranial hemorrhage. > Dictated by Charbel Stevens MD, (Park Landscape Architect). I, Lina Weinberg MD have personally reviewed and interpreted this examination/study. > Interpreting Provider: Lina Weinberg MD on 01/08/2025 2:40 PM Narrative 01/08/2025 2:40 PM CDT EXAMINATION: Magnetic resonance imaging (MRI) of the brain without and with contrast HISTORY: R90.82: White matter abnormality on MRI of brain; TECHNIQUE: MRI of the brain was performed prior to and following the uneventful administration of [' Gadavist intravenous contrast according to standard protocol. CONTRAST: GADOBUTROL 1 MMOL/ML IV SSM SO:10 mL COMPARISON: CT head 11/29/2024 and MRI brain 11/24/2024. FINDINGS: Previously described 6 x 5 mm T2 and FLAIR hyperintense focus in the right patten radiata without enhancement (series 8, image 15 and series 13, image 15), likely related to chronic small vessel ischemic disease. No evidence of acute or chronic hemorrhage is identified. No evidence of acute cerebral infarction is seen. The ventricles are of normal size, shape, and morphology. No mass lesion, edema, mass effect, or midline shift is seen. Periventricular and subcortical white matter FLAIR hyperintensities likely represent sequelae of chronic small vessel ischemic disease. No enhancing lesions are identified. The corpus callosum and sella appear normal. The posterior fossa, brainstem, and craniocervical junction appear normal. The orbits appear normal. Other than small mucous retention cyst within the left maxillary sinus, the paranasal sinuses are clear. The mastoid air cells are clear. Normal flow voids are demonstrated in the carotid arteries and basilar artery. The calvarium and visualized cervical spine appear normal. Procedure Note Lina Weinberg MD - 01/08/2025 EXAMINATION: Magnetic resonance imaging (MRI) of the brain without andwith contrast HISTORY: R90.82: White matter abnormality on MRI of brain; TECHNIQUE: MRI of the brain was performed prior to and following the uneventful administration of [' Gadavist intravenous contrast accordingto standard protocol. CONTRAST: GADOBUTROL 1 MMOL/ML IV SSM SO:10 mL COMPARISON: CT head 11/29/2024 and MRI brain 11/24/2024. FINDINGS: Previously described 6 x 5 mm T2 and FLAIR hyperintense focus in theright patten radiata without enhancement (series 8, image 15 and series 13,image 15), likely related to chronic small vessel ischemic disease. No evidence of acute or chronic hemorrhage is identified. No evidence of acute cerebral infarction is seen. The ventricles are of normal size, shape, and morphology. No mass lesion, edema, mass effect, or midlineshift is seen. Periventricular and subcortical white matter FLAIR hyperintensities likely represent sequelae of chronic small vesselischemic disease. No enhancing lesions are identified. The corpus callosum andsella appear normal. The posterior fossa, brainstem, and craniocervicaljunction appear normal. The orbits appear normal. Other than small mucous retention cyst withinthe left maxillary sinus, the paranasal sinuses are clear. The mastoid air cells are clear. Normal flow voids are demonstrated in the carotidarteries and basilar artery. The calvarium and visualized cervical spine appear normal. IMPRESSION: 1.Previously described 6 x 5 mm T2 and FLAIR hyperintense focus in the right patten radiata without enhancement, likely related to chronicsmall vessel ischemic disease. No significant interval changes. No new lesions. 2.No acute intracranial process. Specifically, no acute infarct or acute intracranial hemorrhage. > Dictated by Charbel Stevens MD, (Park Landscape Architect). I, Lina Weinberg MD have personally reviewed and interpreted this examination/study. > Interpreting Provider: Lina Weinberg MD on 01/08/2025 2:40 PM Charanjit Jackson MD MR ORDERABLES Final R esult * (ABNORMAL) COMPREHENSIVE METABOLIC PANEL (12/05/2024 5:22 AM CDT) BUN 12 7 - 26 mg/dL 12/05/2024 5:56 AM [facility] Creatinine 0.67 0.56 - 0.96 mg/dL 12/05/2024 5:56 AM [facility] Sodium 140 136 - 145 mmol/L 12/05/2024 5:56 AM [facility] Potassium 3.7 3.5 - 4.5 mmol/L 12/05/2024 5:56 AM [facility] Chloride 106 98 - 107 mmol/L 12/05/2024 5:56 AM [facility] CO2 21(L) 22 - 29 mmol/L 12/05/2024 5:56 AM [facility] Glucose 93 70 - 99 mg/dL 12/05/2024 5:56 AM [facility] Calcium 8.9 8.4 - 10.2 mg/dL 12/05/2024 5:56 AM [facility] Protein Total 6.9 6.0 - 8.3 g/dL 12/05/2024 5:56 AM [facility] Albumin 3.9 3.4 - 5.0 g/dL 12/05/2024 5:56 AM [facility] Bilirubin Total 0.1(L) 0.2 - 1.2 mg/dL 12/05/2024 5:56 AM [facility] Alkaline Phosphatase 104 40 - 150 U/L 12/05/2024 5:56 AM [facility] ALT 17 5 - 55 U/L 12/05/2024 5:56 AM [facility] AST 18 5 - 34 U/L 12/05/2024 5:56 AM [facility] Anion Gap 13 6 - 16 12/05/2024 5:56 AM [facility] BUN/Creatinine Ratio 18 7 - 23 12/05/2024 5:56 AM [facility] Osmolality Calculated 289 275 - 295 mOsm/kg 12/05/2024 5:56 AM [facility] Albumin/Globulin Ratio 1.3 1.1 - 2.3 12/05/2024 5:56 AM [facility] eGFR by CKD-EPI >90 >=90 mL/min/1.7 3 m2 12/05/2024 5:56 AM [facility] Blood BLOOD SPECIMEN / Unknown Venipuncture / Unknown 12/05/2024 5:22 AM CDT 12/05/2024 5:25 AM T Jorge Hall MD LAB - CHEMISTRY ORDERABLES Final Result [facility] [address] [place] [address], [facility] [phone] * HEPATITIS SCREEN ACUTE (05/07/2013 5:15 AM CDT) Hepatitis A Virus Antibody IgM NONREACTIVE NONREACTIVE [facility] Hepatitis C Antibody NONREACTIVE NONREACTIVE [facility] Comment: Anti-HCV screen indicates no serologic evidence of past or current infection with Hepatitis C Virus. Patients with unexplained liver disease who are immunocompromised or suspected of having acute Hepatitis C infection may benefit from Nucleic Acid Test (SELWYN) for Hepatitis C Viral RNA to confirm Hepatitis C status. Hepatitis B Virus Surface Antigen NONREACTIVE NONREACTIVE [facility] Hepatitis B Core Virus Antibody IgM NONREACTIVE NONREACTIVE [facility] 05/07/2013 5:15 AM CDT 05/07/2013 5:57 AM CDT us Arnold Mireles MD LAB - CHEMISTRY ORDERABLES Fin al Result [facility] [address] [place] [address] from Last 3 Months or Most Recently Relevant to Health Maintenance Insurance [facility] [place] [facility] [employer] PARTY LIABILITY Green Party Liability [facility] Member Subscriber Plan / Payer (Ef fective for All Dates) Name:Tatiana Mcpherson Relation to Subscriber:Self Name:TATIANA MCPHERSON Payer ID:Not on file Group ID:Not on file Type:Medicaid [place] Address: [address] Member Subscriber Plan / Payer (Ef fective for All Dates) Name:Tatiana Mcpherson Relation to Subscriber:Self Name:TATIANA MCPHERSON Payer ID:Not on file Group ID:Not on file Type:Medicaid [place] Address: [address] Advance Directives * Full Code (Latest [...] 9:59 AM 12/31/2023 10:03 PM Care Teams Delineator Relationship Specialty Start Date End Date Eli Abbott MD [address] [place] [phone] PCP - General Family Medicine 11/24/24 Ally Chambers, RN Clinical Applications Specialist 09/12/16
--- OUTSIDE RECORDS SUMMARY | 2025-03-09 21:27 | XMS_ITS | Referral Summary ---
Author Organization [facility] Address [address] [place] [address] Care Team Providers Care Field Foreman Name Role Phone Denver Veliz MD Unavailable Dalton Fragoso MD Unavailable [phone] Eli Abbott MD Primary Care Provider [phone] Encounters Date Type Department Care Team Description 02/25/2025 4:00 PM CDT - 02/25/2025 11:59 PM CDT Hospital Encounter [facility] Emergency, Room R Discharge Disposition: Discharge to home or self care 02/25/2025 4:14 PM CDT - 02/25/2025 6:32 PM CDT Emergency [facility] Emergency Department [address] [place] [address] Joseph Ford MD Breakthrough seizure (HCC) (Primary Dx) Discharge Disposition: Discharge to home or self care 12/22/2024 1:13 AM CDT - 12/22/2024 4:55 AM CDT Emergency [facility] Emergency Department [address] [place] [address] Elif Killian MD Breakthrough seizure (HCC) (Primary Dx); Contusion of left shoulder, initial encounter Discharge Disposition: Discharge to home or self care 12/17/2024 1:16 PM CDT - 12/17/2024 3:40 PM CDT Emergency [facility] Emergency Department [address] [place] [address] Discharge Disposition: Left without being seen from Last 3 Months Allergies Active Allergy [...] mouth daily 90 tablet 3 01/17/20 24 Active ketorolac (TORADOL) 10 mg tablet Take [...] (three) times a day 21 tablet 11/16/19 25 Active rosuvastatin (CRESTOR) 10 mg tablet Take [...] procedure 12/20/2023 [facility] 12/20/2023 Transient ischemic attack (TIA) 11/29/2023 Numbness and tingling of left upper extremity Postoperative back pain 11/27/2023 Osteopenia 11/26/2023 Overview (01/16/2024): dexa 07/27 Mixed anxiety and depressive disorder 11/26/2023 Overview (01/16/2024): -pt has psych at [facility] Spinal stenosis of lumbar re gion without [...] loss Assessment & Plan (09/16/2023 3:03 PM ELECTRICAL LOGGER): BMI 32.20 Discussed ADA diet Encourage exercising as tolerated Recommend weight loss Abrasion of forearm, left 09/16/2023 Assessment & Plan (09/16/2023 2:58 PM ELECTRICAL LOGGER): Abrasion is healing well without signs or symptoms of infection. Complete the Augmentin. Continue wound care as discussed Bilateral leg numbness 04/23/2023 Assessment & Plan (09/16/2023 3:00 PM ELECTRICAL LOGGER): As a result of bilateral sciatica. Accelerated [...] 04/02/2023 Assessment & Plan (09/16/2023 3:05 PM ELECTRICAL LOGGER): Scheduled for spinal fusion on 10/02/2023 by [...] surgeries. Assessment & Plan (09/16/2023 3:01 PM ELECTRICAL LOGGER): Last reported seizure was on 09/07/2023 Her [...] 02/14/2023 Assessment & Plan (09/16/2023 3:05 PM ELECTRICAL LOGGER): Status post hysterectomy with BSO Assessment & Plan (04/01/2023 3:47 PM CDT): S/p total hysterectomy Positive D-dimer 12/21/2022 Gallbladder with possible hydrops and stone 12/03 Diet-controlled diabetes mellitus 12/21/2022 Assessment & Plan (10/18/2023 10:53 AM CDT): Well controlled. Tries to follow an ADA diet. Her hemoglobin A1c on 10/15/2023 was 5.5%. No current medications. Assessment & Plan (09/16/2023 3:04 PM ELECTRICAL LOGGER): Patient can not recall her last A1c [...] visit Assessment & Plan (09/16/2023 3:02 PM ELECTRICAL LOGGER): She currently smokes 1/2 pack per day [...] 01/15/2008 Assessment & Plan (09/16/2023 2:59 PM ELECTRICAL LOGGER): Managed by Psychiatry, Dr. Fragoso No current medications Denies any SI/HI/SH Anxiety 01/15/2008 Assessment & Plan (09/16/2023 3:00 PM ELECTRICAL LOGGER): Katherin. Managed by Dr. Fragoso. No current medications. [...] exercise Assessment & Plan (09/16/2023 3:07 PM ELECTRICAL LOGGER): BP 135/88 in the office today She [...] 04/08/2023 Assessment & Plan (09/16/2023 3:07 PM ELECTRICAL LOGGER): See above Seizure 03/31/2023 10/17/2023 Right arm pain 02/15/2023 10/17/2023 Right arm weakness 02/15/2023 Tobacco use disorder 02/13/2018 024 Assessment & Plan (09/16/2023 3:08 PM ELECTRICAL LOGGER): Currently smokes 1/2 pack per day Not interested in quitting at this time but will discuss at next office visit Seizure disorder 12/19/2013 10/17/2023 Overview (11/08/2016): Seizure disorder Assessment & Plan (09/16/2023 3:08 PM ELECTRICAL LOGGER): Managed by Dr. Barraza Immunizations Immunization Administration [...] drink = 0.6 oz pur e alcohol) [facility] Hiri Answer Date Recorded In the past 12 months has [employer], gas, oil, or water [employer] threatened to shut off services in your [...] week 04/20/2024 How often do you attend [facility] or islam services? Never 04/20/2024 Do you belong to any clubs o r organizations such as adventist groups, unions, fraternal or athletic groups, or [...] money to buy more. Never true 04/20/20 Within the past 12 months, t he [...] or slept in a retirement (including now)? No 04/24/2023 Housing Stability Vital [...] time in the past 12 m [facility], were you homeless or living in a retirement (including now)? No 04/20/2024 Personal Safety Answer Date Recorded Have you ever been in or are you currently in a harmful physical or emotional relationship or is someone making you feel afraid or unsafe? Denies 02/25/2025 Comments No Sex and Gender Information Value Date Recorded Sex Assigned at Not on file Legal Sex Female 12:47 AM ELECTRICAL LOGGER Gender Identity Not on file Sexual Orientation Not on file Last Filed Vital Signs Vital Sign Reading Time Taken Comments Blood Pressure 126/91 02/25/2025 4:45 PM CDT Pulse 74 02/25/2025 4:45 PM CDT Temperature 36 C (96.8 F) 02/25/2025 4:17 PM CDT Respiratory Rate 22 02/25/2025 4:45 PM CDT Oxygen Saturation 96% 02/25/2025 4:45 PM CDT Inhaled Oxygen Concentration - - Weight 108.9 kg (240 lb) 02/25/2025 4:16 PM CDT Height 190.5 cm (6' 3) 12/22/2024 1:44 AM CDT Body Mass Index 30 12/22/2024 1:44 AM CDT Plan of Treatment Not on file Procedures Procedure Name Priority Date/Time Associated Diagnosis Comments EGFR STAT 02/25/2025 4:26 PM CDT DIFFERENTIAL AUTO STAT 02/25/2025 4:2 6 PM CDT COMPREHENSIVE METABOLIC PANEL STAT 02/25/2025 4:26 PM CDT CBC WITH AUTO DIFFERENTIAL STAT 02/25/2025 4:26 PM CDT ECG 12-LEAD STAT 02/25/2025 4:20 PM CDT XR SHOULDER LEFT 2 OR MORE VIEWS ED 12/22/2024 3:42 AM CDT EGFR STAT 12/22/2024 2:42 AM CDT DIFFERENTIAL AUTO STAT 12/22/2024 2:4 2 AM CDT COMPREHENSIVE METABOLIC PANEL STAT 12/22/2024 2:42 AM CDT CBC WITH AUTO DIFFERENTIAL STAT 12/22/2024 2:42 AM CDT XR CHEST 1 VIEW ED 12/22/2024 2:06 AM CDT URINALYSIS AND REFLEX TO MICROSCOPIC AND CULTURE STAT 12/22/2024 1:56 AM CDT ECG 12-LEAD STAT 12/17/2024 1:33 PM CDT SCREENING MAMMOGRAM BILATERAL W RC Schedule Routine, Read Routine (OP Routine) 11/02/2024 9:43 AM CDT Encounter for screening mammogram for malignant neoplasm of breast HEMOGLOBIN A1C Routine 01/16/2024 10:50 AM CDT [...] Relevant to Health Maintenance Results * eGFR (02/25/2025 4:26 PM CDT) eGFR >90 >=60 mL/min/1. 73 m2 Comment: [...] interpretive data was last reviewed 2021. Blood 02/25/2025 4:26 PM CDT 02/25/2025 4:29 PM CDT us Joseph Ford MD LAB BLOOD ORDERABLES Final Res ult [facility] Department [place] [address] * Differential, auto (02/25/2025 4:26 PM CDT) Neutrophil abs 3.96 1.50 - 6.50 K/cumm Imm gran abs 0.02 0.00 - 0.10 K/cumm [facility] ([place]) Lymphocyte abs 1.83 0.80 - 3.30 K/cumm [facility] ([place]) Monocyte abs 0.54 0.20 - 0.80 K/cumm [facility] ([place]) Eosinophil abs 0.18 0.00 - 0.50 K/cumm [facility] ([place]) Basophil abs 0.04 0.00 - 0.10 K/cumm [facility] ([place]) Neutrophil pct 60.3 % [facility] ([place]) Comment: Interpretive Data Percent cell count reference ranges are not reported, since discordance with absolute values may lead to misinterpretation of CBC data. Current Interpretive Data was last revised on 2017. Imm gran pct 0.3 % [facility] ([place]) Comment: Interpretive Data Percent cell count reference ranges are not reported, since discordance with absolute values may lead to misinterpretation of CBC data. Current Interpretive Data was last revised on 2017. Lymphocyte pct 27.9 % [facility] ([place]) Comment: Interpretive Data Percent cell count reference ranges are not reported, since discordance with absolute values may lead to misinterpretation of CBC data. Current Interpretive Data was last revised on 2017. Monocyte pct 8.2 % [facility] ([place]) Comment: Interpretive Data Percent cell count reference ranges are not reported, since discordance with absolute values may lead to misinterpretation of CBC data. Current Interpretive Data was last revised on 2017. Eosinophil pct 2.7 % [facility] ([place]) Comment: Interpretive Data Percent cell count reference ranges are not reported, since discordance with absolute values may lead to misinterpretation of CBC data. Current Interpretive Data was last revised on 2017. Basophil pct 0.6 % [facility] ([place]) Comment: Interpretive Data Percent cell count reference ranges are not reported, since discordance with absolute values may lead to misinterpretation of CBC data. Current Interpretive Data was last revised on 2017. Blood 02/25/2025 4:26 PM CDT 02/25/2025 4:29 PM CDT us Joseph Ford MD LAB BLOOD ORDERABLES Final Res ult [facility] ([place] Department [place] [address] * (ABNORMAL) CBC with auto differential (02/25/2025 4:26 PM CDT) WBC 6.57 3.80 - 9.90 K/cumm Hgb 9.7(L) 11.9 - 15.5 g/dL [facility] ([place]) Hct 32.6(L) 35.6 - 45.5 % [facility] ([place]) Plt 352 150 - 400 K/cumm [facility] ([place]) MPV 9.1 9.1 - 12.3 fL [facility] ([place]) RBC 4.21 3.90 - 5.20 M/cumm [facility] ([place]) MCV 77.4(L) 81.3 - 96.4 fL [facility] ([place]) MCH 23.0(L) 27.1 - 33.3 pg [facility] ([place]) MCHC 29.8(L) 32.3 - 35.7 g/dL [facility] ([place]) RDW CV 16.4(H) 11.1 - 14.9 % [facility] ([place]) RDW SD 46.2 35.7 - 48.1 fL [facility] ([place]) NRBC abs 0.00 0.00 - 0.01 K/cumm [facility] ([place]) Blood 02/25/2025 4:26 PM CDT 02/25/2025 4:29 PM CDT us Joseph Ford MD LAB BLOOD ORDERABLES Final Res ult [facility] ([place]) [address] [facility] Department [place] [address] * (ABNORMAL) Comprehensive metabolic panel (02/25/2025 4:26 PM CDT) Sodium 137 135 - 145 mmol/L [facility] ([place]) Potassium, pl 4.3 3.3 - 4.9 mmol/L [facility] ([place]) Chloride 107 97 - 110 mmol/L [facility] ([place]) CO2 19(L) 22 - 32 mmol/L [facility] ([place]) Anion gap 11 2 - 15 mmol/L [facility] ([place]) BUN 17 6 - 25 mg/dL [facility] ([place]) Creatinine 0.67 0.60 - 1.10 mg/dL [facility] ([place]) Glucose 91 70 - 199 mg/dL [facility] ([place] [...] interpretive data was last revised 2022. Calcium 9.0 8.5 - 10.3 mg/dL [facility] ([place]) Bilirubin, total 0.2 0.1 - 1.2 mg/dL [facility] ([place]) Protein, pl 6.6 6.5 - 8.5 g/dL [facility] ([place]) Albumin 3.8 3.5 - 5.0 g/dL [facility] ([place]) Alk phos 113 40 - 130 Units/L [facility] ([place]) ALT 10 7 - 45 Units/L [facility] ([place]) AST 16 10 - 45 Units/L [facility] ([place]) Blood 02/25/2025 4:26 PM CDT 02/25/2025 4:29 PM CDT Joseph Ford MD LAB BLOOD ORDERABLES Final Res ult Performing Organization Address [facility] Co de Phone Number [facility] ([place]) [address] [facility] Department [place] [address] * ECG 12 lead (02/25/2025 4:20 PM CDT) 02/25/2025 4:20 PM CDT Narrative [facility] 02/25/2025 9:46 PM CDT Vent Rate: 72 bpm RR Interval: 825 msec WV Interval: 180 msec QRS Duration: 90 msec QT Interval: 362 msec QTC Interval: 387 msec P-R-T Gunpowder: 29 - 23 - 53 degrees IMPRESSION: SINUS RHYTHM NORMAL ECG no change from prior EKG Electronically Signed By: Cruz Claudio MD Joseph Ford MD ECG ORDERABLES Final Result Performing Organization Address [facility] de Phone Number [facility] [employer] [facility] * XR Shoulder Left 2 or More Views (12/22/2024 3:42 AM CDT) Anatomical Region Laterality Modality Upper Extremities, Shoulder Left Comp uted Radiography 12/22/2024 3:50 AM CDT Narrative 12/22/2024 3:51 AM CDT EXAM DESCRIPTION: XR SHOULDER LEFT 2 OR MORE VIEWS REASON FOR STUDY: accidental injury Seizure Tonight, and now all over left shoulder pain. TECHNIQUE: Internal rotation, external rotation, and Y views of the shoulder. COMPARISON: 09/06/2023 FINDINGS: BONES/JOINTS: No fracture, malalignment, or suspicious osseous lesion is identified. Glenohumeral and acromioclavicular joints unremarkable. Subacromial space and coracoclavicular distance appear normal. Visualized ribs and spine intact. SOFT TISSUES: Unremarkable. IMPRESSION: No fracture or malalignment identified. THIS IS AN ELECTRONICALLY VERIFIED FINAL REPORT 12/22/2024 3:51 AM - Electronically signed by Santi Castrejon M.D. AR: CYN Report ID: [id number] Reading Location: [place] [address] Procedure Note Santi Castrejon MD - 12/22/2024 EXAM DESCRIPTION: XR SHOULDER LEFT 2 OR MORE VIEWS REASON FOR STUDY: accidental injury Seizure Tonight, and now all over left shoulder pain. TECHNIQUE: Internal rotation, external rotation, and Y views of the shoulder. COMPARISON: 09/06/2023 FINDINGS: BONES/JOINTS: No fracture, malalignment, or suspicious osseous lesion is identified. Glenohumeral and acromioclavicular joints unremarkable. Subacromial space and coracoclavicular distance appear normal.Visualized ribs and spine intact. SOFT TISSUES: Unremarkable. IMPRESSION: No fracture or malalignment identified. THIS IS AN ELECTRONICALLY VERIFIED FINAL REPORT 12/22/2024 3:51 AM - Electronically signed by Santi Castrejon M.D. AR: CYN Report ID: [id number] Reading Location: [place] [address] us Elif Killian MD IMG XR PROCEDURES F inal Result * eGFR (12/22/2024 2:42 AM CDT) eGFR >90 >=60 mL/min/1. 73 m2 Comment: [...] interpretive data was last reviewed 2021. Blood 12/22/2024 2:42 AM CDT 12/22/2024 2:46 AM CDT us Elif Killian MD LAB BLOOD ORDERABLE S Final Result [facility] ([place]) [address] [facility] Department [place] [address] * Differential, auto (12/22/2024 2:42 AM CDT) Neutrophil abs 2.25 1.50 - 6.50 K/cumm Imm gran abs 0.01 0.00 - 0.10 K/cumm [facility] ([place]) Lymphocyte abs 1.91 0.80 - 3.30 K/cumm [facility] ([place]) Monocyte abs 0.43 0.20 - 0.80 K/cumm [facility] ([place]) Eosinophil abs 0.15 0.00 - 0.50 K/cumm [facility] ([place]) Basophil abs 0.02 0.00 - 0.10 K/cumm [facility] ([place]) Neutrophil pct 47.3 % [facility] ([place]) Comment: Interpretive [...] was last revised on 2017. Lymphocyte pct 40.0 % [facility] ([place]) Comment: Interpretive Data Percent cell count reference ranges are not reported, since discordance with absolute values may lead to misinterpretation of CBC data. Current Interpretive Data was last revised on 2017. Monocyte pct 9.0 % [facility] ([place]) Comment: Interpretive Data [...] Data was last revised on 2017. Blood 12/22/2024 2:42 AM CDT 12/22/2024 2:46 AM CDT us Elif Killian MD LAB BLOOD ORDERABLE S Final Result [facility] ([place]) [address] [facility] Department of Laboratories [place], [place] [id number] * (ABNORMAL) CBC with auto differential (12/22/2024 2:42 AM CDT) WBC 4.77 3.80 - 9.90 K/cumm Hgb 9.6(L) 11.9 - 15.5 g/dL [facility] ([place]) Hct 31.1(L) 35.6 - 45.5 % [facility] ([place]) Plt 319 150 - 400 K/cumm [facility] ([place]) MPV 9.7 9.1 - 12.3 fL [facility] ([place]) RBC 3.97 3.90 - 5.20 M/cumm [facility] ([place]) MCV 78.3(L) 81.3 - 96.4 fL [facility] ([place]) MCH 24.2(L) 27.1 - 33.3 pg [facility] ([place]) MCHC 30.9(L) 32.3 - 35.7 g/dL [facility] ([place]) RDW CV 15.4(H) 11.1 - 14.9 % [facility] RDW SD 43.8 35.7 - 48.1 fL [facility] NRBC abs 0.00 0.00 - 0.01 K/cumm [facility] ([place]) Blood 12/22/2024 2:4 2 AM CDT 12/22/2024 2:46 AM CDT us Elif Killian MD LAB BLOOD ORDERABLE S Final Result [facility] ([place]) [address] [facility] Department [place] [address] * (ABNORMAL) Comprehensive metabolic panel (12/22/2024 2:42 AM CDT) Sodium 139 135 - 145 mmol/L Potassium, pl 3.8 3.3 - 4.9 mmol/L [facility] Chloride 106 97 - 110 mmol/L [facility] CO2 19(L) 22 - 32 mmol/L [facility] Anion gap 14 2 - 15 mmol/L [facility] BUN 13 6 - 25 mg/dL [facility] Creatinine 0.57(L) 0.60 - 1.10 mg/dL [facility] Glucose 78 70 - 199 mg/dL [facility] Comment: Interpretive Data [...] interpretive data was last revised 2022. Calcium 8.1(L) 8.5 - 10.3 mg/dL [facility] ([place]) Bilirubin, total <0.2 0.1 - 1.2 mg/dL [facility] ([place]) Protein, pl 6.1(L) 6.5 - 8.5 g/dL [facility] ([place]) Albumin 3.4(L) 3.5 - 5.0 g/dL [facility] ([place]) Alk phos 118 40 - 130 Units/L [facility] ([place]) ALT 18 7 - 45 Units/L [facility] ([place]) AST 20 10 - 45 Units/L [facility] ([place]) Blood 12/22/2024 2:42 AM CDT 12/22/2024 2:46 AM CDT us Elif Killian MD LAB BLOOD ORDERABLE S Final Result [facility] ([place]) [facility] [place] [address] * XR Chest 1 Vw Portable (12/22/2024 2:06 AM CDT) Anatomical Region Laterality Modality Body, Chest N/A Computed Radiogr aphy 12/22/2024 2:27 AM CDT Narrative 12/22/2024 2:28 AM CDT EXAM DESCRIPTION: XR CHEST 1 VIEW REASON FOR STUDY: Breakthrough seizure Seizure and Headache. Smoker Asthma COPD Diabetic Seizure Disorder Lung lobectomy (Right) right lung mass, Rt upper lobectomy Hx of Uterine Cancer TECHNIQUE: Portable upright AP view of the chest. COMPARISON: 08/28/2024 FINDINGS: LUNGS AND PLEURA: No focal opacity, large effusion, or pneumothorax identified. HEART/MEDIASTINUM: Trachea midline. Cardiac silhouette normal in size. Mediastinal contours appear normal. BONES: Unremarkable. CHEST WALL: Unremarkable. UPPER ABDOMEN: Unremarkable. IMPRESSION: No acute abnormality identified. THIS IS AN ELECTRONICALLY VERIFIED FINAL REPORT 12/22/2024 2:28 AM - Electronically signed by Santi Castrejon M.D. AR: CYN Report ID: [id number] Reading Location: [id number] Procedure Note Santi Castrejon MD - 12/22/2024 EXAM DESCRIPTION: XR CHEST 1 VIEW REASON FOR STUDY: Breakthrough seizure Seizure and Headache. Smoker Asthma COPD Diabetic Seizure Disorder Lung lobectomy (Right) right lung mass, Rt upper lobectomy Hx ofUterine Cancer TECHNIQUE: Portable upright AP view of the chest. COMPARISON: 08/28/2024 FINDINGS: LUNGS AND PLEURA: No focal opacity, large effusion, or pneumothorax identified. HEART/MEDIASTINUM: Trachea midline. Cardiac silhouette normal in size. Mediastinal contours appear normal. BONES: Unremarkable. CHEST WALL: Unremarkable. UPPER ABDOMEN: Unremarkable. IMPRESSION: No acute abnormality identified. THIS IS AN ELECTRONICALLY VERIFIED FINAL REPORT 12/22/2024 2:28 AM - Electronically signed by Santi Castrejon M.D. AR: CYN Report ID: [id number] Reading Location: [place] [address] Elif Killian MD IMG XR PROCEDURES F inal Result * Urinalysis reflex to microscopic and culture Urine (12/22/2024 1:56 AM CDT) Color, ur Yellow Yellow Clarity, ur Clear Clear [facility] ([place]) Specific gravity, ur 1.019 1.003 - 1.030 [facility] ([place]) pH, urine 7.0 [facility] ([place]) Comment: Interpretive Data U rine pH is affected by diet, medications, systemic acid-base disturbances, and renal tubular function. pH may affect urinary stone formation. For example, urine pH below 6.0 may help reduce the tendency for calcium phosphate stones and pH greater than 6.0 may reduce the tendency for uric acid stone formation. Source: [place] [employer] Current Interpretive Data was last revised on [...] culture not met. [facility] ([place]) Urine 12/22/2024 1:56 AM CDT 12/22/2024 1:58 AM CDT Elif Killian MD LAB MICROBIOLOGY - GENERAL ORDERABLES Final Result Performing Organization Address [facility] Co de Phone Number [facility] ([place]) [address] [facility] Department of Laboratories [place] [id number] * ECG 12 lead (12/17/2024 1:33 PM CDT) 12/17/2024 1:33 PM CDT Narrative [facility] - 12/17/2024 4:20 PM CDT Vent Rate: 83 bpm RR Interval: 718 msec WV Interval: 146 msec QRS Duration: 89 msec QT Interval: 339 msec QTC Interval: 379 msec P-R-T Gunpowder: 27 - 67 - 48 degrees IMPRESSION: SINUS RHYTHM NORMAL ECG NO CHANGE FROM PREVIOUS TRACING NOTED Electronically Signed By: Cruz Claudio MD Chad David MD ECG ORDERABLES Final Result Performing Organization Address [facility]/ZIP Co de Phone Number [facility] [employer] [facility] * Screening Mammogram Bilateral W Rc (11/02/2024 [...] mass, calcification, or distortion in either breast. Eli Abbott MD IMG MAMMO PROCEDURES Final Re sult * Albumin Creatinine Ratio, Urine (01/16/2024 10:50 [...] LAB URINE ORDERABLES Final Re sult [facility] [address] Department [place] [address] * Hemoglobin A1c (01/16/2024 10:50 AM CDT) Hgb A1C 5.3 4.0 - 5.6 % Estimated Average Glucose 105 mg/dL [facility] Comment: The ADA recommends reporting an estimated Average Glucose (eAG) with all Hemoglobin A1c results using the equation derived from a study of 507 normal and diabetic adults. Minority populations were underrepresented and children were not included. (Diabetes Care 31:5406-9460, 2008). The eAG is not equivalent to a fasting glucose. Blood 01/16/2024 10:5 0 AM CDT 01/16/2024 7:12 PM CDT us Anna Cassidy NP LAB BLOOD ORDERABLES Final Re sult [facility] [address] Department [place] [address] * (ABNORMAL) Lipid panel (01/16/2024 10:50 AM [...] BLOOD ORDERABLES Final Re sult [facility] [address] Department [place] [address] * Hepatitis panel, acute (05/16/2014 5:29 PM [...] IgM NONREACT NONREACTIVE 4 7:07 PM CDT [facility] HISTORICAL RESULTS Comment: Siemens CentaurXP using [...] MICROBIOLOGY - GENERAL O RDERABLES Final Result [facility] HISTORICAL RESULTS from Last 3 Months or Most Recently Relevant to Health Maintenance Insurance Advance Directives For more information, please contact: [phone] Documents on File Type Date Recorded Patient Automated Weaver Expl anation ADVANCE DIRECTIVE 04/29/2023 4:00 PM DNR ADVANCE DIRECTIVE 04/26/2023 4:27 PM POWER OF RIDES ATTENDANT-MEDICAL Power of Cytometry Technologist 04/24/2023 8:00 AM * Full Code (Latest [...] 12:32 PM 04/26/2023 12:17 AM Care Teams Field Foreman Relationship Specialty Start Date End Date Eli Abbott MD [address] [address] PCP - General Obstetrics and Gynecology 10/07/24 [place] [id number] [address] Consulting Physician Gastroenterology 12/22/22 Dalton Fragoso MD [address] [place] [address] Referring Physician Psychiatry & Neurology 09/16/23
--- OUTSIDE RECORDS SUMMARY | 2025-03-09 21:27 | XMS_ITS | Clinical Summary ---
Author Organization [facility] Address [address] [place] [address] Phone Care Team Providers Care Postage Machine Operator Name Role Phone Jn Polo Byron PAC Unavailable [phone] Eli Abbott MD Primary Care Provider [phone] Allergies Active Allergy Reactions Criticality Noted Date [...] seizure Wasp Venom Anaphylaxis,Swelling High 10/27/2024 Medications Ferrous Sulfate (Iron) 325 (65 Fe) MG Tablet Take 325 mg by mouth daily. Active Cyanocobalamin (Vitamin B-12 CR) 1000 MCG Tablet Controlled Release 1,000 mcg by Intramuscular route every 30 days. Active diphenhydrAMIN E (BENADRYL) 25 MG Capsule Take 25 mg by mouth nightly as needed for Sleep. Active melatonin 3 MG TabletIndicati ons:Insomnia Take 3 mg by mouth nightly. Indications: Trouble Sleeping Active naproxen (NAPROSYN) 250 MG Tablet Take 250 mg by mouth 2 times daily (with meals). Active HYDROcodone-ib uprofen (VICOPROFEN) 7.5-200 MG TabletIndicati ons:Acute pain of right shoulder Take 1 Tablet by mouth every 4 hours as needed for Moderate or more severe pain. 20 Tablet 07/09/20 24 Active Briviact 75 MG Tablet Take 1 Tablet by mouth 2 times daily. Active Cyanocobalamin (Vitamin B-12 CR) 1000 MCG Tablet Controlled Release Take 1 Tablet by mouth daily. Active Misc. Devices (Walker) Misc Use as needed. A ctive celecoxib (CeleBREX) 100 MG Capsule Take 100 [...] route every 24 hours. 11/04/19 25 Active levETIRAcetam (Keppra) 500 MG Tablet Take 1 Tablet by mouth 2 times daily. 20 Tablet 05/31/20 25 Active Multiple Vitamins-Dry House Attendant als (MULTIVITAMIN PO) Take 1 Tablet by mouth daily. Womens 50 Plus Discontin ued(Med List Clean Up) albuterol (PROVENTIL, VENTOLIN) (2.5 MG/3ML) 0.083% Nebulizer Soln INHALE 3ML 3 TIMES A DAY BY NEBULIZATION ROUTE NEEDED FOR 30 DAYS. 270 mL 11/12/19 19 Discontin ued(Med List Clean Up) VENTOLIN HFA 108 (90 Base) MCG/ACT Aerosol Solution INHALE 2 PUFFS BY MOUTH EVERY 4 HOURS NEEDED FOR WHEEZE 18 Inhaler 5 12/21/19 20 Discontin ued(Med List Clean Up) [place] 3-6-9 Fatty Acids (OMEGA 3-6-9 COMPLEX PO) Take 1 Tablet by mouth daily. Discontin ued(Med List Clean Up) Calcium Carbonate-Jessica min D (CALCIUM-CARB 600 + D PO) Take 1 Tablet by mouth daily. Discontin ued(Med List Clean Up) carBAMazepine (CARBATROL) 100 MG CAPSULE SR 12 HR Take 200 mg by mouth 2 times daily (with meals). Discontin ued(Med List Clean Up) metoclopramide (REGLAN) 10 MG Tablet Take 1 Tablet by mouth 4 times daily as needed for Nausea - 1st line. 10 Tablet 04/13/20 24 Discontin ued(Med List Clean Up) ondansetron (ZOFRAN) 4 MG Tablet Take 1-2 Tablets by mouth every 8 hours as needed for Nausea - 1st line. 30 Tablet 07/09/20 24 Discontin ued(Med List Clean Up) pantoprazole (PROTONIX) 40 MG Tablet Delayed Response Take 1 Tablet by mouth daily. 30 Tablet 10/10/19 25 Discontin ued(Med List Clean Up) rosuvastatin (CRESTOR) 10 MG Tablet Take 10 mg by mouth daily. Discontin ued(Med List Clean Up) Vitamin D-Vitamin K (VITAMIN K2-VITAMIN D3 PO) Take 1 Tablet by mouth daily. Discontin ued(Med List Clean Up) Ubiquinone (ULTRA COQ10 PO) Take 2 Capsules by mouth daily. 200 mg 025 Discontin ued(Med List Clean Up) Menthol, Topical Analgesic, (Biofreeze Roll-On) 4 % Gel Use as directed. 04/29/20 23 025 Discontin ued(Med List Clean Up) sertraline (ZOLOFT) 50 MG Tablet Take 50 mg by mouth daily. 025 Discontin ued(Med List Clean Up) carBAMazepine (TEGretol XR) 100 MG TABLET SR 12 HR Take 2 Capsules by mouth 2 times daily. 025 Discontin ued(Med List Clean Up) ondansetron (ZOFRAN) 4 MG Tablet Take 1 Tablet by mouth every 8 hours. Discontin ued(Med List Clean Up) Active Problems Problem Noted Date Diagnosed Date Tear of medial meniscus of left knee, initial en counter 09/06/2022 Panlobular emphysema 02/13/2018 AMANDA (obstructive sleep apnea) 02/13/2018 Tobacco use disorder 02/13/2018 Non morbid obesity 02/13/2018 Pulmonary hypertension 02/13/2018 Encounters Date Type Department Care Team Description 02/11/2025 9:12 PM CDT - 02/11/2025 11:13 PM CDT Emergency [facility] [address] [place] [address] Adrian Yap MD Seizure ([facility]) Discharge Disposition: Discharged to home or Selfcare 02/11/2025 Travel 02/02/2025 12:25 AM CDT - 02/02/2025 1:31 AM CDT Emergency [facility] [address] [place] [address] Jn Vyas DO Seizure ([facility]) Discharge Disposition: Discharged to home or Selfcare 02/02/2025 Travel 01/15/2025 11:44 PM CDT - 01/16/2025 2:09 AM CDT Emergency [facility] [address] [place] [address] Adrian Yap MD Seizure (HCC) Discharge Disposition: Discharged to home or Selfcare 01/15/2025 Travel 01/01/2025 9:57 PM CDT - 01/02/2025 1:15 AM CDT Emergency [facility] [address] [place] [address] Orion Decker MD Seizure (HCC) Discharge Disposition: Discharged to home or Selfcare 01/01/2025 Travel 12/09/2024 Nurse Triage [facility] [address] [place] [phone] Barb Panda RN COPD from Last 3 Months Immunizations Immunization Administration [...] Sign Reading Time Taken Comments Blood Pressure 108/73 02/11/2025 10:30 PM CDT Pulse 65 02/11/2025 10:45 PM CDT Temperature 37.1 C (98.8 F) 02/11/2025 9:19 PM CDT Respiratory Rate 18 02/11/2025 10:45 PM CDT Oxygen Saturation 99% 02/11/2025 10:45 PM CDT Inhaled Oxygen Concentration - - Weight 108.9 kg (240 lb) 02/11/2025 9:19 PM CDT Height 190.5 cm (6' 3) 02/11/2025 9:19 PM CDT Body Mass Index 30 02/11/2025 9:19 PM CDT Plan of Treatment Health Maintenance Due Date Last Done Comments Hepatitis B Immunization (1 of 3 - 19+ 3-dose series) 1997 Pneumococcal Immunization Combined (1 of 2 - PCV) 1997 Cologuard 2023 SARS-COV-2 Immunization (1 - season) 2024 Immunochemical Fecal Occult Blood 03/12/2025 03/12/2024 Influenza Immunization (#1) 2025 Mammogram 11/02/2025 11/02/2024, 10/31/2023, 10/31/2023 Colonoscopy 08/13/2032 08/13/2022 Colorectal Cancer Screening 08/13/2032 Td Immunization Every 10 Yea rs (Adults With 1 Tdap) 02/04/2034 02/05/2024, 03/27/2021 Respiratory Syncytial Virus (RSV) Immunization (Adult) (1 - 1-dose 75+ series) 2053 Hepatitis C Virus (HCV) Screening Completed 05/07/2013 DTaP/Tdap/Td Immunization Discontinued 2023, 03/27/2021 Discussion re Starting/Frequency of Mammograms Completed 11/02/2024, 10/31/2023 Human Papillomavirus (HPV) Immunization Aged Out No longer eligible based on patient's age to complete this topic Meningococcal Immunization (ACWY) Aged Out No longer eligible based on patient's age to complete this topic Rotavirus Immunization Aged Out No lo nger eligible based on patient's age to complete this topic Procedures Procedure Name Priority Date/Time Associated Diagnosis Comments CBC WITH AUTO DIFFERENTIAL STAT 02/11/2025 9:43 PM CDT CMP (COMPREHENSIVE METABOLIC PANEL) STAT 02/11/2025 9:43 PM CDT COMPLETE BLOOD COUNT (CBC) WITH DIFF STAT 02/11/2025 9:43 PM CDT POCT GLUCOSE STAT 02/11/2025 9:18 PM CDT CBC WITH AUTO DIFFERENTIAL STAT 02/02/2025 12:44 AM CDT COMPLETE BLOOD COUNT (CBC) WITH DIFF STAT 02/02/2025 12:44 AM CDT CMP (COMPREHENSIVE METABOLIC PANEL) STAT 02/02/2025 12:44 AM CDT POCT GLUCOSE STAT 02/02/2025 12:29 AM CDT EKG SCAN 02/02/2025 12:00 AM CDT CBC WITH AUTO DIFFERENTIAL STAT 01/16/2025 12:10 AM CDT TEGRETOL (CARBAMAZEPINE) STAT 01/16/2025 12:10 AM CDT CMP (COMPREHENSIVE METABOLIC PANEL) STAT 01/16/2025 12:10 AM CDT COMPLETE BLOOD COUNT (CBC) WITH DIFF STAT 01/16/2025 12:10 AM CDT CBC WITH AUTO DIFFERENTIAL STAT 01/02/2025 12:27 AM CDT CMP (COMPREHENSIVE METABOLIC PANEL) STAT 01/02/2025 12:27 AM CDT COMPLETE BLOOD COUNT (CBC) WITH DIFF STAT 01/02/2025 12:[address] HEAD OR BRAIN WO CONTRAST Stat with Interpretation 01/01/2025 11:10 PM CDT EKG 12 LEAD STAT 01/01/2025 9:53 PM CDT EKG SCAN 01/01/2025 12:00 AM CDT STOOL, OCCULT BLOOD, DIAGNOSTIC, VIA GUAIAC STAT 03/12/2024 5:19 PM CDT from Last 3 Months or Most Recently Relevant to Health Maintenance Results * (ABNORMAL) CBC with Auto Differential (02/11/2025 9:43 PM CDT) Only the most recent of4 resultswithin the time period is included. WBC 5.44 4.00 - 12.00 10(3)/[facility] 02/11/2025 10:22 PM CDT [facility] RBC 4.11 3.80 - 5.30 10(6)/[facility] 02/11/2025 10:22 PM CDT [facility] HEMOGLOBIN (HGB) 9.8(L) 12.0 - 15.8 g/dL 02/11/2025 10:22 PM CDT [facility] HEMATOCRIT (HCT) 31.3(L) 36.0 - 47.0 % 02/11/2025 10:22 PM CDT [facility] MCV 76.2(L) 82.0 - 96.0 fL 02/11/2025 10:22 PM CDT [facility] MCH 23.8(L) 26.0 - 34.0 pg 02/11/2025 10:22 PM CDT [facility] MCHC 31.3 31.0 - 36.0 g/dL 02/11/2025 10:22 PM CDT [facility] PLATELET COUNT 385 140 - 440 10(3)/[facility] 02/11/2025 10:22 PM CDT [facility] RDW 16.1(H) 11.8 - 15.5 % 02/11/2025 10:22 PM CDT [facility] MPV 11.2 9.7 - 12.4 fL 02/11/2025 10:22 PM CDT [facility] NEUTROPHILS 59.3 47.0 - 73.0 % 02/11/2025 10:22 PM CDT [facility] LYMPHOCYTES 28.5 18.0 - 42.0 % 02/11/2025 10:22 PM CDT [facility] MONOCYTES 7.7 4.0 - 12.0 % 02/11/2025 10:22 PM CDT [facility] EOSINOPHILS 2.9 0.0 - 5.0 % 02/11/2025 10:22 PM CDT [facility] BASOPHILS 0.7 0.0 - 1.0 % 02/11/2025 10:22 PM CDT [facility] IMMATURE GRANULOCYTE 0.9(H) 0.0 - 0.4 % 02/11/2025 10:22 PM CDT [facility] Comment:Immature Granulocyte s includes Metamyelocytes, Myelocytes, and Promyelocytes. ABSOLUTE NEUTROPHILS 3.22 1.60 - 7.70 10(3)/mcL 02/11/2025 10:22 PM CDT [facility] ABSOLUTE LYMPHOCYTES 1.55 1.30 - 3.20 10(3)/mcL 02/11/2025 10:22 PM CDT [facility] ABSOLUTE MONOCYTES 0.42 0.20 - 1.00 10(3)/mcL 02/11/2025 10:22 PM CDT [facility] ABSOLUTE EOSINOPHIL 0.16 0.00 - 0.40 10(3)/mcL 02/11/2025 10:22 PM CDT [facility] ABSOLUTE BASOPHILS 0.04 0.00 - 0.10 10(3)/[facility] 02/11/2025 10:22 PM CDT [facility] ABSOLUTE IMMATURE GRANULOCYTE 0.05(H) 0.00 - 0.03 10 (3) mcL. 02/11/2025 10:22 PM CDT [facility] NRBC PER 100 WBC 0 02/12/20 25 10:22 PM CDT [facility] Blood Venipuncture / Unknown 02/11/2025 9:43 PM CDT 02/11/2025 10:09 PM CDT us Adrian Yap MD HEMATOLOGY ORDERABLES Fin al Result [facility] [address] [place] [address] * (ABNORMAL) CMP (Comprehensive Metabolic Panel) (02/11/2025 9:43 PM CDT) Only the most recent of4 resultswithin the time period is included. SODIUM 138 136 - 145 mmol/L 02/11/2025 10:34 PM CDT [facility] POTASSIUM 5.0 3.5 - 5.1 mmol/L 02/11/2025 10:34 PM T [facility] Comment: Specimen is hemolyzed. In vitro hemolysis could affect results. Clinical correlation advised. CHLORIDE 109(H) 98 - 107 mmol/L 02/11/2025 10:34 PM T [facility] CO2, VENOUS 18(L) 22 - 30 mmol/L 02/11/2025 10:34 PM CDT [facility] ANION GAP 16.0 <18.0 mmol/L 02/11/2025 10:34 PM T [facility] GLUCOSE 80 70 - 99 mg/dL 02/11/2025 10:34 PM T [facility] BUN 16 5 - 18 mg/dL 02/11/2025 10:34 PM [facility] CREATININE, BLOOD 0.80 0.60 - 1.00 mg/dL 02/11/2025 10:34 PM CDT [facility] BUN/CREATININE RATIO 20 12 - 20 ratio 02/11/2025 10:34 PM [facility] TOTAL PROTEIN 7.3 6.0 - 8.0 g/dL 02/11/2025 10:34 PM T [facility] Comment: Specimen is hemolyzed. In vitro hemolysis could affect results. Clinical correlation advised. ALBUMIN 3.8 3.5 - 5.0 g/dL 02/11/2025 10:34 PM CDT [facility] A/G RATIO 1.1 1.0 - 2.2 02/11/2025 10:34 PM CDT [facility] CALCIUM 8.7 8.7 - 10.5 mg/dL 02/11/2025 10:34 PM T [facility] T BILI 0.3 0.2 - 1.2 mg/dL 02/11/2025 10:34 PM T [facility] SGOT (AST) 40 <43 U/L 02/11/2025 10:34 PM CDT [facility] Comment: Specimen is hemolyzed. In vitro hemolysis could affect results. Clinical correlation advised. SGPT (ALT) 12 <56 U/L 02/11/2025 10:34 PM CDT [facility] ALKALINE PHOSPHATASE 111 40 - 150 U/L 02/11/2025 10:34 PM CDT [facility] GFR, ESTIMATED >60 >=60 02/11/2025 10:34 PM CDT [facility] Comment: Creatinine Clearance is the preferred criteria for selecting drug dose adjustments in renally impaired patients. The GFR is provided as additional pertinent clinical information. GFR is reported in mL/min/1.73 sq m. Calculation based on the Chronic Kidney Disease Epidemiology Collaboration (CKD- EPI) equation refit without adjustment for race. GFR, EST. >60 >=60 025 10:34 PM CDT [facility] GFR, EST. NONAFRICAN >60 >=60 02/11/2025 10:34 PM CDT [facility] Blood Venipuncture / Unknown 02/11/2025 9:43 PM CDT 02/11/2025 10:10 PM CDT us Adrian Yap MD CHEMISTRY ORDERABLES Ashly l Result [facility] [address] [place] [address] * (ABNORMAL) POCT Glucose (02/11/2025 9:18 PM CDT) Only the most recent of2 resultswithin the time period is included. GLUCOSE,BEDSID E POCT 102(H) 70 - 99 mg/dL 02/11/2025 9:24 PM CDT [facility] Comment:Patient RN Performed Blood 02/11/2025 9:18 PM CDT 02/11/2025 9:24 PM CDT us None Provider POINT OF CARE TESTING Final Resu lt [facility] [address] [place] [address] * EKG SCAN (02/02/2025 12:00 AM CDT) Only the most recent of2 resultswithin the time period is included. 02/02/2025 us Provider Scan IMG ECG ORDERABLES Final Result Performing Organization Address [facility] Co de Phone Number RESULTING AGENCY * (ABNORMAL) Tegretol (Carbamazapine) [id number] (01/16/2025 12:10 AM CDT) TEGRETOL <1.9(L) 8.0 - 12.0 mcg/mL 01/16/2025 2:53 PM CDT [facility] Blood Venipuncture / Unknown 01/16/2025 12:10 AM CDT 01/16/2025 1:15 AM CDT Adrian Yap MD CHEMISTRY ORDERABLES Ashly l Result Performing Organization Address [facility] de Phone Number [facility] [address] [place] [address], [place] * CT HEAD OR BRAIN WO CONTRAST (01/01/2025 11:10 PM CDT) Anatomical Region Laterality Modality Head N/A Computed Tomogra phy 01/01/2025 11:4 9 PM CDT Impressions 01/01/2025 11:51 PM CDT IMPRESSION: No acute intracranial findings. Narrative 01/01/2025 11:51 PM CDT EXAM DESCRIPTION: CT HEAD OR BRAIN WO CONTRAST REASON FOR STUDY: c/o GLF after seizure activity today. Hematoma to posterior scalp. HX: Seizure, DM, HTN, Uterine ca TECHNIQUE: Axial images acquired through the brain without intravenous contrast. Images stored on PACS. Automated exposure control was used as a dose optimization technique for this examination. COMPARISON: 07/09/2024 FINDINGS: BRAIN: No hemorrhage, edema or mass effect. No recent infarct. Normal white matter. EXTRA-AXIAL SPACES: No fluid collections. No masses. CALVARIUM: No fracture. SINUSES/MASTOIDS: No fluid or mucosal thickening. ORBITS: No significant abnormality. OTHER: No other significant abnormality. THIS IS AN ELECTRONICALLY VERIFIED FINAL REPORT 01/01/2025 11:49 PM - Electronically signed by Jin Barrett M.D. KT: AMALIA Report ID: [id number] Reading Location: [id number] Procedure Note Jin Barrett MD - 01/01/2025 EXAM DESCRIPTION: CT HEAD OR BRAIN WO CONTRAST REASON FOR STUDY: c/o GLF after seizure activity today. Hematoma to posterior scalp. HX: Seizure, DM, HTN, Uterine ca TECHNIQUE: Axial images acquired through the brain without intravenous contrast. Images stored on PACS. Automated exposure control was used as a dose optimization technique for this examination. COMPARISON: 07/09/2024 FINDINGS: BRAIN: No hemorrhage, edema or mass effect. No recent infarct. Normal white matter. EXTRA-AXIAL SPACES: No fluid collections. No masses. CALVARIUM: No fracture. SINUSES/MASTOIDS: No fluid or mucosal thickening. ORBITS: No significant abnormality. OTHER: No other significant abnormality. THIS IS AN ELECTRONICALLY VERIFIED FINAL REPORT 01/01/2025 11:49 PM - Electronically signed by Jin Barrett M.D. KT: AMALIA Report ID: [id number] Reading Location: [id number] IMPRESSION: No acute intracranial findings. us Orion Decker MD IMG CT ORDERABLES Final Re sult * EKG 12 LEAD (01/01/2025 9:53 PM CDT) Ventricular Rate 86 BPM EXTERNAL EKG Atrial Rate 86 BPM EXTERNAL EKG P-R Interval 174 ms EXTERNAL EKG QRS Duration 76 ms EXTERNAL EKG Q-T Duration 358 ms EXTERNAL EKG QTC CALCULATION 428 ms EXTERNAL EKG P [place] 53 degrees EXTERNAL EKG R [place] 27 degrees EXTERNAL EKG T [place] 52 degrees EXTERNAL EKG 01/01/2025 9:53 PM CDT Impressions EXTERNAL EKG - 01/07/2025 10:55 PM CDT Normal sinus rhythm Possible Left atrial enlargement Borderline ECG When compared with ECG of 24-OCT-2024 14:47, No significant change was found Confirmed by Angelina Adorno ([id number]) on 01/07/2025 10:55:01 PM Narrative Procedure Note Angelina Adorno MD PhD - 01/07/2025 IMPRESSION: Normal sinus rhythm Possible Left atrial enlargement Borderline ECG When compared with ECG of 24-OCT-2024 14:47, No significant change was found Confirmed by Angelina Adorno ([id number]) on 01/07/2025 10:55:01 PM us Orion Decker MD IMG ECG ORDERABLES Final R esult EXTERNAL EKG * Stool, Occult Blood, Diagnostic (03/12/2024 5:19 PM CDT) OCCULT BLOOD DIAG Negative Negative 03/12/2024 5:54 PM CDT [facility] Stool STOOL SPECIMEN / Unknown Non-Phlebotomy Collection / Unknown 03/12/2024 5:19 PM CDT 03/12/2024 5:37 PM CDT us Jhoana Carrion APRN, [employer] FLUIDS [employer] STOOLS ORDERABLES Final Result [facility] [address] [place] [address] from Last 3 Months or Most Recently [...] measures to stabilize the patient. Care Teams Postage Machine Operator Relationship Specialty Start Date End Date Eli Abbott MD [address] [place] [address] PCP - General Family Medicine 09/03/24 Jn Polo PAC Physician Dexigraph Operator Physician Dexigraph Operator 07/13/24
--- OUTSIDE RECORDS SUMMARY | 2025-03-09 21:27 | XMS_ITS | Clinical Summary ---
Author Organization [facility] Address [address] [place] [address] Care Team Providers Care Rn Telephonic Name Role Phone Denver Veliz MD Unavailable Dalton Fragoso MD Unavailable [phone] Eli Abbott MD Primary Care Provider [phone] Allergies Active Allergy Reactions Criticality Noted Date [...] procedure 12/20/2023 PICC (peripherally inserted central catheter) [facility] 12/20/2023 Transient ischemic attack (TIA) 11/29/2023 Numbness and tingling of left upper extremity Postoperative back pain 11/27/2023 Osteopenia 11/26/2023 Overview (01/16/2024): dexa 07/27 Mixed anxiety and depressive disorder 11/26/2023 Overview (01/16/2024): -pt has psych at [facility] Spinal stenosis of lumbar re gion without [...] loss Assessment & Plan (09/16/2023 3:03 PM LAUNDRY MARKER SUPERVISOR): BMI 32.20 Discussed ADA diet Encourage exercising as tolerated Recommend weight loss Abrasion of forearm, left 09/16/2023 Assessment & Plan (09/16/2023 2:58 PM LAUNDRY MARKER SUPERVISOR): Abrasion is healing well without signs or symptoms of infection. Complete the Augmentin. Continue wound care as discussed Bilateral leg numbness 04/23/2023 Assessment & Plan (09/16/2023 3:00 PM LAUNDRY MARKER SUPERVISOR): As a result of bilateral sciatica. [...] 04/02/2023 Assessment & Plan (09/16/2023 3:05 PM LAUNDRY MARKER SUPERVISOR): Scheduled for spinal fusion on 10/02/2023 [...] surgeries. Assessment & Plan (09/16/2023 3:01 PM LAUNDRY MARKER SUPERVISOR): Last reported seizure was on 09/07/2023 [...] 02/14/2023 Assessment & Plan (09/16/2023 3:05 PM LAUNDRY MARKER SUPERVISOR): Status post hysterectomy with BSO Assessment & Plan (04/01/2023 3:47 PM CDT): S/p total hysterectomy Positive D-dimer 12/21/2022 Gallbladder with possible hydrops and stone 12/03 Diet-controlled diabetes mellitus 12/21/2022 Assessment & Plan (10/18/2023 10:53 AM CDT): Well controlled. Tries to follow an ADA diet. Her hemoglobin A1c on 10/15/2023 was 5.5%. No current medications. Assessment & Plan (09/16/2023 3:04 PM LAUNDRY MARKER SUPERVISOR): Patient can not recall her last [...] visit Assessment & Plan (09/16/2023 3:02 PM LAUNDRY MARKER SUPERVISOR): She currently smokes 1/2 pack per [...] 01/15/2008 Assessment & Plan (09/16/2023 2:59 PM LAUNDRY MARKER SUPERVISOR): Managed by Psychiatry, Dr. Fragoso No current medications Denies any SI/HI/SH Anxiety 01/15/2008 Assessment & Plan (09/16/2023 3:00 PM LAUNDRY MARKER SUPERVISOR): Stable. Managed by Dr. Fragoso. No [...] exercise Assessment & Plan (09/16/2023 3:07 PM LAUNDRY MARKER SUPERVISOR): BP 135/88 in the office today [...] 04/08/2023 Assessment & Plan (09/16/2023 3:07 PM LAUNDRY MARKER SUPERVISOR): See above Seizure 03/31/2023 10/17/2023 Right arm pain 02/15/2023 10/17/2023 Right arm weakness 02/15/2023 Tobacco use disorder 02/13/2018 024 Assessment & Plan (09/16/2023 3:08 PM LAUNDRY MARKER SUPERVISOR): Currently smokes 1/2 pack per day Not interested in quitting at this time but will discuss at next office visit Seizure disorder 12/19/2013 10/17/2023 Overview (11/08/2016): Seizure disorder Assessment & Plan (09/16/2023 3:08 PM LAUNDRY MARKER SUPERVISOR): Managed by Dr. Barraza Encounters Date Type Department Care Team Description 02/25/2025 4:14 PM CDT - 02/25/2025 6:32 PM CDT Emergency [facility] Emergency Department [address] [place] [id number] Joseph Ford MD Breakthrough seizure (HCC) (Primary Dx) Discharge Disposition: Discharge to home or self care 02/25/2025 4:00 PM CDT - 02/25/2025 11:59 PM CDT Hospital Encounter [facility] Emergency, Room R Discharge Disposition: Discharge to home or self care 12/22/2024 1:13 AM CDT - 12/22/2024 4:55 AM CDT Emergency [facility] Emergency Department [address] [place] [id number] Elif Killian MD Breakthrough seizure (HCC) (Primary Dx); Contusion of left shoulder, initial encounter Discharge Disposition: Discharge to home or self care 12/17/2024 1:16 PM CDT - 12/17/2024 3:40 PM CDT Emergency [facility] Emergency Department [address] [place] [address] Discharge Disposition: Left without being seen from Last 3 Months Immunizations Immunization Administration [...] t lung mass DVT (deep venous thrombosis) Malignant neoplasm of uterus (HCC) Cancer, uterine Preeclampsia Peptic ulceration ADHD (attention deficit hype ractivity disorder) Asthma Anemia Tobacco use disorder 02/13/2018 Sleep apnea PONV (postoperative nausea and vomiting) Hyperlipidemia Diverticulosis Kidney stone Type 2 diabetes mellitus Arthritis History of transfusion Placental abruption PTSD [...] drink = 0.6 oz pur e alcohol) Houserieities Answer Date Recorded In the past 12 months has [employer], [employer], or water [employer] threatened to shut off services in your [...] 04/20/2024 How often do you attend chur or moravian services? Never 04/20/2024 Do you belong to any clubs o r organizations such as yarsanism groups, unions, fraternal or athletic groups, or [...] any time in the past 12 m [facility], were you homeless or living in a residential (including now)? No 04/20/2024 Personal Safety Answer Date Recorded Have you ever been in or are you currently in a harmful physical or emotional relationship or is someone making you feel afraid or unsafe? Denies 02/25/2025 Comments No Sex and Gender Information Value Date Recorded Sex Assigned at Not on file Legal Sex Female 12:47 AM LAUNDRY MARKER SUPERVISOR Gender Identity Not on file Sexual [...] 12/22/2024 1:44 AM CDT Plan of Treatment Health Maintenance Due Date Last Done Comments Colon Cancer Screening-Colonoscopy 1978 Dilated Eye Exam 1978 Foot Exam 1978 Hepatitis B Screening 1996 Regular Well Visit/Exam 18-64 1996 Pneumococcal vaccine <65 (1 of 2 - PCV) 1997 Hemoglobin A1C 07/17/2024 01/16/2024, 10/03, 02/15/2023, Additional history exists Depression Screening 09/16/2024 09/16/2023, 09/16/2023, 02/14/2023 Albumin Creatinine Ratio, Urine 01/15/2025 01/16/2024, 10/18/2023 Lipid Panel 01/15/2025 01/16/2024, 02/02, 12/15/2019, Additional history exists Influenza Vaccine (#1) 2025 Breast Cancer Screening-Mammogram 11/02/2025 11/02/2024, 10/31/2023, 06/02/2013 eGFR 02/25/2026 02/25/2025, 05/, 09/29/2024, Additional history exists DTaP/Tdap/Td Vaccine (3 - [...] of Race in Diagnosing Kidney Disease, JASN 202). The CKD-EPI equation should not be used for patients with unstable renal function and has not been validated in children and those over 70. Current interpretive data was last reviewed 2021. Blood 02/25/2025 4:26 PM CDT 02/25/2025 4:29 PM CDT us Joseph Ford MD LAB BLOOD ORDERABLES Final Res ult NARA BENÍTEZ [facility] 1 [facility] Department [place] [address] * Differential, auto (02/25/2025 4:26 PM CDT) Neutrophil abs 3.96 1.50 - 6.50 K/cumm Imm gran abs 0.02 0.00 - 0.10 K/cumm [facility] ([place]) Lymphocyte abs 1.83 0.80 - 3.30 K/cumm [facility] ([place]) Monocyte abs 0.54 0.20 - 0.80 K/cumm [facility] ([place]) Eosinophil abs 0.18 0.00 - 0.50 K/cumm [facility] ([place]) Basophil abs 0.04 0.00 - 0.10 K/cumm [facility] ([place]) Neutrophil pct 60.3 % [facility] ([place]) Comment: Interpretive [...] Lymphocyte pct 27.9 % [facility] ([place]) Comment: Interpretive Data Percent cell count reference ranges are not reported, since discordance with absolute values may lead to misinterpretation of CBC data. Current Interpretive Data was last revised on 2017. Monocyte pct 8.2 % [facility] ([place]) Comment: Interpretive Data [...] MD LAB BLOOD ORDERABLES Final Res ult [facility] ([place]) 1 [facility] [place] [address] * (ABNORMAL) CBC with auto differential (02/25/2025 [...] Final Res ult [facility] ([place]) 1 [facility] [place] [address] * (ABNORMAL) Comprehensive metabolic panel (02/25/2025 4:26 [...] ORDERABLES Final Res ult Performing Organization Address City/State/[facility] Co de Phone Number [facility] ([place]) 1 [facility] Department [place] [address] * ECG 12 lead (02/25/2025 4:20 PM CDT) 02/25/2025 4:20 PM CDT Narrative [facility] - 02/25/2025 9:46 PM CDT Vent Rate: 72 bpm RR Interval: 825 msec HI Interval: 180 msec QRS Duration: 90 msec QT Interval: 362 msec QTC Interval: 387 msec P-R-T [place]: 29 - 23 - 53 degrees IMPRESSION: SINUS RHYTHM NORMAL ECG no change from prior EKG Electronically Signed By: Cruz Claudio MD Joseph Ford MD ECG ORDERABLES Final Result Performing Organization Address [facility] de Phone Number [facility] [employer] [facility] * XR Shoulder Left 2 or [...] Santi Castrejon M.D. AR: CYN Report ID: [id number] Reading Location: [id number] Procedure Note Santi Castrejon MD - 12/22/2024 [...] Santi Castrejon M.D. AR: CYN Report ID: [id number] Reading Location: [place] [address] Elif Killian MD IMG XR PROCEDURES F [...] BLOOD ORDERABLE S Final Result [facility] ([place]) 1 [facility] Department [place] [address] * Differential, auto (12/22/2024 2:42 AM CDT) [...] BLOOD ORDERABLE S Final Result [facility] ([place] 1 [facility] Department [place] [address] * (ABNORMAL) CBC with auto differential (12/22/2024 [...] RDW CV 15.4(H) 11.1 - 14.9 % [facility] ([place]) RDW SD 43.8 35.7 - 48.1 fL [facility] ([place]) NRBC abs 0.00 0.00 - 0.01 K/cumm [facility] ([place]) Blood 12/22/2024 2:42 AM CDT 12/22/2024 2:46 AM CDT us Elif Killian MD LAB BLOOD ORDERABLE S Final Result [facility] ([place]) 1 [facility] Department [place] [address] * (ABNORMAL) Comprehensive metabolic panel (12/22/2024 2:42 AM CDT) Sodium 139 135 - 145 mmol/L Potassium, pl 3.8 3.3 - 4.9 mmol/L [facility] ([place]) Chloride 106 97 - 110 mmol/L [facility]) CO2 19(L) 22 - 32 mmol/L [facility] ([place]) Anion gap 14 2 - 15 mmol/L [facility] ([place]) BUN 13 6 - 25 mg/dL [facility] ([place]) Creatinine 0.57(L) 0.60 - 1.10 mg/dL [facility] ([place]) Glucose 78 70 - 199 mg/dL [facility] ([place]) [...] Final Result [facility] ([place] 1 [facility] Department [place] [address] * XR Chest 1 Vw Portable (12/22/2024 [...] Santi Castrejon M.D. AR: CYN Report ID: [id number] Reading Location: [id number] Procedure Note Santi Castrejon MD - 12/22/2024 [...] Santi Castrejon M.D. AR: CYN Report ID: [id number] Reading Location: [place] [address] Elif Killian MD IMG XR PROCEDURES F inal Result * Urinalysis reflex to microscopic and culture Urine (12/22/2024 1:56 AM CDT) Color, ur Yellow Yellow Clarity, ur Clear Clear [facility] ([place]) Specific gravity, ur 1.019 1.003 - 1.030 [facility] ([place]) pH, urine 7.0 [facility] ([place]) Comment: Interpretive Data U rine pH is affected by diet, medications, systemic acid-base disturbances, and renal tubular function. pH may affect urinary stone formation. For example, urine pH below 6.0 may help reduce the tendency for calcium phosphate stones and pH greater than 6.0 may reduce the tendency for uric acid stone formation. Source: [employer] Current Interpretive Data was last revised on [...] MICROBIOLOGY - GENERAL ORDERABLES Final Result [facility] ([place]) 1 [facility] Department [place] [address] * ECG 12 lead (12/17/2024 1:33 PM CDT) 12/17/2024 1:33 PM CDT Narrative [facility] - 12/17/2024 4:20 PM CDT Vent Rate: 83 bpm RR Interval: 718 msec HI Interval: 146 msec QRS Duration: 89 msec QT Interval: 339 msec QTC Interval: 379 msec P-R-T [place]: 27 - 67 - 48 degrees IMPRESSION: SINUS RHYTHM NORMAL ECG NO CHANGE FROM PREVIOUS TRACING NOTED Electronically Signed By: Cruz Claudio MD Chad David MD ECG ORDERABLES Final Result Performing Organization Address [facility] Co de Phone Number [facility] [employer] [facility] * Screening Mammogram Bilateral W Rc [...] Creatinine Ratio, Urine (01/16/2024 10:50 AM CDT) Pathologist [facility] Albumin Ur <12.0 mg/L Comment: Interpretive Data No reference range established. Current interpretive data was last revised 2018. Creatinine Ur 143.7 mg/dL [facility] Comment: Interpretive Data No reference range established. Current interpretive data was last revised 2018. Albumin Creatinine Ratio, Ur <8 1 - 29 mg/g [facility] Urine 01/16/2024 10:5 0 AM CDT 01/16/2024 7:12 PM CDT Anna Cassidy NP LAB URINE ORDERABLES Final Re sult Performing Organization Address [facility] de Phone Number [facility] [address] [place] [address] * Hemoglobin A1c (01/16/2024 10:50 AM CDT) Pathologist [facility] Department Hgb A1C 5.3 4.0 - 5.6 % Estimated Average Glucose 105 mg/dL [facility] Comment: The ADA recommends reporting an estimated Average Glucose (eAG) with all Hemoglobin A1c results using the equation derived from a study of 507 normal and diabetic adults. Minority populations were underrepresented and children were not included. (Diabetes Care 31:2319-2307, 2008). The eAG is not equivalent to a fasting glucose. Blood 01/16/2024 10:5 0 AM CDT 01/16/2024 7:12 PM CDT Anna Cassidy NP LAB BLOOD ORDERABLES Final Re sult Performing Organization Address [facility] Co de Phone Number [facility] [address] [place] [address] * (ABNORMAL) Lipid panel (01/16/2024 10:50 AM CDT) Pathologist [facility] Cholesterol 304(H) 30 - 199 mg/dL Comment: [...] LAB BLOOD ORDERABLES Final Re sult [facility] [address] Department [place] [address] * Hepatitis panel, acute (05/16/2014 5:29 PM CDT) HepBsAg NONREACT NONREACTIVE 05/16/2014 6:50 PM CDT [employer] HISTORICAL RESULTS Comment: Siemens CentaurXP using AVRIL (chemiluminescent immunoassay) technology. NONREACTIVE: IgM antibodies to Hepatitis B Surface antigen not detected. REACTIVE: IgM antibodies to Hepatitis B Surface antigen detected. Reactive results will be confirmed by neutralization testing. HBsAb (immune status) NONREACT NONREACTIVE 05/16/2014 6:17 PM CDT [employer] HISTORICAL RESULTS Comment: [employer]ens CentaurXP using AVRIL (chemiluminescent immunoassay) technology. NONREACTIVE: IgM antibodies to Hepatitis B Surface antibody not detected. REACTIVE: IgM antibodies to Hepatitis B Surface antibody detected. Hep B core IgM NONREACT NONREACTIVE 4 7:07 PM CDT [facility] HISTORICAL RESULTS Comment: [employer]ens CentaurXP using AVRIL (chemiluminescent immunoassay) technology. NONREACTIVE: IgM antibodies to Hepatitis B Core antigen not detected. EQUIVOCAL: IgM antibodies to Hepatitis B Core antigen may or may not be present. Obtain a new specimen and retest. REACTIVE: IgM antibodies to Hepatitis B Core antigen detected. Hep A IgM NONREACT NONREACTIVE 05/16/2014 7:07 PM CDT [facility] HISTORICAL RESULTS Comment: [employer] CentaurXP using AVRIL (chemiluminescent immunoassay) technology. NONREACTIVE: IgM antibodies to Hepatitis A not detected. This does not exclude possibility of exposure to Hepatitis A or early acute infection. EQUIVOCAL:IgM antibodies to Hepatitis A may or may not be present. Suggest recollection and retest. REACTIVE: Antibodies to Hepatitis A detected. Hep C Ab NONREACT NONREACTIVE 05/16/2014 7:07 PM CDT [facility] HISTORICAL RESULTS Comment: [employer] CentaurXP using AVRIL [...] MICROBIOLOGY - GENERAL O RDERABLES Final Result [facility] HISTORICAL RESULTS from Last 3 Months or Most Recently Relevant to Health Maintenance Insurance [facility] Advance Directives For more information, please contact: [phone] Documents on File Type Date Recorded Patient Bulk Loader Expl anation ADVANCE DIRECTIVE 04/29/2023 4:00 PM DNR ADVANCE DIRECTIVE 04/26/2023 4:27 PM POWER OF WIDE PIECE GOODS INSPECTOR-MEDICAL Power of Birdcage Assembler 04/24/2023 8:00 AM * Full Code (Latest [...] 12:32 PM 04/26/2023 12:17 AM Care Teams Rn Telephonic Relationship Specialty Start Date End Date Eli Abbott MD [address] [place] [id number] PCP - General Obstetrics and Gynecology 10/07/24 [place] [address] [facility] [address] [place] [address] Consulting Physician Gastroenterology 12/22/22 Dalton Fragoso MD [address] [place] [address] Referring Physician Psychiatry & Neurology 09/16/23
--- OUTSIDE RECORDS SUMMARY | 2025-03-09 21:27 | XMS_ITS | Clinical Summary ---
Author Organization [facility] Address [address] [place] [address] Phone Care Team Providers Care Slinger Sequins Name Role Phone Brett Chávez MD Primary Care Provider + Allergies Active Allergy Reactions Criticality Noted Date Comments Bee Pollens Other (See Comments) 03/21/2013 . Ceftriaxone Unknown 03/21/2013 Unclear if true reaction. Got 4 different meds at once Ciprofloxacin Itching Low 03/21/2013 Fentanyl Hives High 03/21/2013 Iodinated Contrast Media Rash Low 03/21/2013 Iodine Hives High 12/05/2024 Levofloxacin Rash Low 03/21/2013 Morphine Itching Low 03/21/2013 Sulfa (Sulfonamide Antibiotics) Rash Low 03/21/2013 Medications albuterol (PROAIR HFA) 90 mcg/Actuation Inhalation HFAA HFA inhaler Take 2 Puffs by inhalation every 6 hours as needed. Active multivitamin (DAILY-FELY) tablet Take 1 Tablet by mouth daily. Active calcium citrate-vitamin d3 (CITRACAL D MAX) 315 mg- 250 unit Tablet Take 1 Tablet by mouth daily. Active cyclobenzaprine (FLEXERIL) 10 mg tablet Take 10 mg by mouth 3 times daily as needed for Spasm. Active naproxen (NAPROSYN) 250 mg tablet Take 250 mg by mouth 2 times daily as needed for Pain. Active brivaracetam (Briviact) 100 mg tablet Take 100 mg by mouth 2 times daily. Active midazolam (Nayzilam) 5 mg/spray (0.1 mL) [place], Non-Aerosol Administer 1 [place] in one nostril (alternate nostril with each dose) one time as needed for Seizures. Active rosuvastatin (CRESTOR) 10 mg tablet Take 10 mg by mouth daily at bedtime. 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 Intractable vomiting with nausea 04/04/2020 Acute cystitis [...] Encounters Date Type Department Care Team Description 03/02/2025 External Device Data [facility] ABSTRACTION Provider, Abstract 03/02/2025 External Device Data [facility] AB[facility]CTION Provider, Abstract 02/02/2025 External Device Data [facility] [place] Provider, Abstract 01/05/2025 External Device Data [facility] Provider, Abstract 01/05/2025 External Device Data [facility] Provider, Abstract 01/05/2025 External Device Data [facility] Provider, Abstract 12/08/2024 External Device Data [facility] [place] Provider, Abstract 12/08/2024 External Device Data [facility] [place] Provider, Abstract 12/08/2024 External Device Data [facility] Provider, Abstract [...] on file 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 Gender Identity Not on file Sexual Orientation Not on file Occupation Industry Job Start Date Job End Date Not on file Not on file Not on file Not on file Last Filed Vital Signs Vital Sign Reading Time Taken Comments Blood Pressure 108/71 12/06/2024 12:45 PM CDT Pulse 67 12/06/2024 12:45 PM CDT Temperature 36.1 C (96.9 F) 12/06/2024 12:45 PM CDT Respiratory Rate 20 12/06/2024 12:45 PM CDT Oxygen Saturation 98% 12/06/2024 12:45 PM CDT Inhaled Oxygen Concentration - - Weight 111.1 kg (245 lb) 12/06/2024 5:00 AM CDT Height 190.5 cm (6' 3) 11/04/2023 12:33 PM CDT Body Mass Index 30.62 11/04/2023 12:33 PM CDT Plan of Treatment Health Maintenance Due Date Last Done Comments DIABETES ANNUAL FOOT EXAM 1996 DIABETES ANNUAL RETINAL EXAM 1996 DIABETES MICROALBUMIN ANNUAL SCREEN 1996 LDL CHOLESTEROL ANNUAL 1996 HEPATITIS B VACCINES (1 of 3 - 19+ 3-dose series) 1997 FIT-DNA Q 3 years 2023 FIT/FOBT Q 1 year 2023 Flex Sig/CT Colonography Q 5 years 2023 DIABETES HBA1C Q 6 MONTHS 07/17/20242023, 10/15/2023, 04/03/2020, Additional history exists INFLUENZA VACCINE (#1) 2025 BREAST CANCER SCREENING 11/02/2025 11/03/19 25, 11/02/2024, 10/31/2023, Additional history exists COLORECTAL SCREENING 08/14/2032 08/14/2022, 08/13/19 23 Colorectal Cancer Screening 08/14/2032 DTAP/TDAP/TD VACCINES (3 - Td or Tdap) 02/04/2034 02/05/2024, 03/27/2021 HPV VACCINES Aged Out No longer eligi ble based on patient's age to complete this topic Procedures Procedure Name Priority Date/Time Associated Diagnosis Comments HEMOGLOBIN A1C Routine 04/03/2020 11:02 PM CDT from Last 3 Months or Most Recently Relevant to Health Maintenance Results * (ABNORMAL) HEMOGLOBIN A1C (04/03/2020 11:02 PM CDT) HEMOGLOBIN A1C 5.8(H) <5.7 % 04/04/2020 10:39 AM CDT [facility] EST. AVG GLUCOSE, A1C 120 mg/dL 04/04/2020 10:39 AM CDT [facility] Blood Venipuncture / Unknown 04/03/2020 11:02 PM CDT 04/03/2020 11:06 PM CDT Narrative [facility] - 04/04/2020 10:39 AM CDT HGB A1C INTERPRETATION NORMAL: <5.7% PRE-DIABETES: 5.7 - 6.4% DIABETES: 6.5% OR GREATER Sol Solares NP CHEMISTRY ORDERABLES Final Resu lt [facility] [employer] [facility] CLIA# [id number] [address] [place] [address] from Last 3 Months or Most Recently Relevant to Health Maintenance Insurance [employer] [place] Advance Directives For more information, please contact: [phone] * Full Code (Latest Code Status on File) Date Activated Date Inactivated Comments 12/06/2024 4:11 AM 12/06/2024 6:03 PM * Full Code Date Activated Date Inactivated Comments 04/04/2020 5:25 AM 04/05/2020 1:27 AM * Full Code Date Activated Date Inactivated Comments 03/27/2013 2:24 PM 03/28/2013 7:44 PM * Full Code Date Activated Date Inactivated Comments 03/21/2013 4:36 AM 03/27/2013 2:24 PM Care Teams Slinger Sequins Relationship Specialty Start Date End Date Brett Chávez MD [address] [place] [phone] PCP - General Family Practice 04/02/20
--- OUTSIDE RECORDS SUMMARY | 2025-03-09 21:27 | XMS_ITS | Encounter Summary ---
Author Organization [facility] Address [address] [place] [address] Phone Care Team Providers Care Home Appliance Technician Name Role Phone Brett Chávez MD Primary Care Provider [phone] Cedric Martinez MD Primary Care Provider [phone] Sue Snow MD Primary Care Provider [phone] Jn Polo PAC Unavailable [phone] Eli Abbott MD Primary Care Provider Reason for Visit * Reason Comments Medication Refill Encounter Details Date Type Department Care Team (Late st Contact Info) Description 07/18/2020 Refill [facility] #[address] [facility] [place] [id number] Cruz Velasquez MD [address] [place] [address] Medication Refill Social History Tobacco [...] COVID-19? No / Unsure 07/14/2020 11:34 PM PARKING PATROLLER documented as of this encounter Miscellaneous Notes * Telephone Encounter - Thelma Paez - 07/19/2020 7:58 AM CST Patient has not been seen in the past 6 months. ING PATROLLER documented in this encounter Plan of Treatment Not on file documented as of this encounter Visit Diagnoses Not on filedocumented in this encounter Additional Health Concerns Infection Onset Date Last Indicated Resolved Time COVID - 19 08/01/2020 08/01/2020 08/05/2020 1:58 PM PARKING PATROLLER COVID - 19 08/17/2021 08/17/2021 08/20/2021 6:06 AM PARKING PATROLLER COVID - 19 Confirmed 08/17/2021 08/17/2021 022 12:16 AM PARKING PATROLLER COVID - 19 07/26/2022 09/17/2022 09/17/2022 8:04 AM PARKING PATROLLER COVID - 19 07/20/2024 07/20/2024 07/20/2024 9:02 PM PARKING PATROLLER documented as of this encounter Care Teams Home Appliance Technician Relationship Specialty Start Date End Date Brett Chávez MD [address] [facility] [address] [place] [address] PCP - General Family Medicine 06/12/15 03/25/23 Cedric Martinez MD [address] [place] [address] [address] [place] [address] PCP - General Family Medicine 03/26/23 02/04/24 Sue Snow MD 2 [facility] [address] [place] [address] PCP - General Internal Medicine 02/05/24 09/02/24 Eli Abbott MD [address] [place] [address] PCP - General Family Medicine 09/03/24 Jn Ploo PAC [address] [place] [address] Physician Toe Pounder Physician Toe Pounder 07/13/24 documented as of this encounter
[2025-03-09 21:28] LABS: Microcytosis 1+ (NORMAL); Ovalocytes 1+; Schistocytes None Seen
--- NOTE | 2025-03-09 22:35 | PC.NURSE ---
Pt seen by Registration staff walking out toward waiting room. Not seen in waiting room and found pt's IV on bed. Assume pt eloped from ED.
--- NOTE | 2025-03-09 22:39 | ED_ITS ---
HPI - General Adult General Chief complaint: Seizure Stated complaint: Seizure x 2 Time Seen by Provider: 03/09/25 20:28 History of Present Illness HPI narrative: This is a 44-year-old female with history of seizure disorder presenting after a seizure. Patient arrived laboratory studies and Keppra were ordered. However the patient then took out her IV and left the ED before being evaluated by the physician. Related Data Home Medications ?Medication ?Instructions ?Recorded ?Confirmed ?Last Taken ?Type albuterol sulfate 2.5 mg/3 mL 2.5 mg inhalation Q3H 12/21/23 12/21/23 Unknown History (0.083 %) solution for nebulization albuterol sulfate 90 mcg/actuation 2 puff inhalation Q4H wheezing 12/21/23 12/21/23 Unknown History aerosol inhaler carbamazepine 100 mg 200 mg PO BID 12/21/23 12/21/23 Unknown History capsule,extended release [id number] cefepime 1 gram intravenous 2 g IV Q8H 12/21/23 12/21/23 Unknown History piggyback cyclobenzaprine 10 mg tablet 10 mg PO TID PRN Muscle Spasm 12/21/23 12/21/23 Unknown History lisinopril 10 mg tablet 5 mg PO DAILY 12/21/23 12/21/23 Unknown History metronidazole 500 mg tablet 500 mg PO Q8H 12/21/23 12/21/23 Unknown History ondansetron 4 mg disintegrating 4 mg PO Q6H PRN Nausea And Vomiting 12/21/23 12/21/23 Unknown History tablet vancomycin 1 gram/100 mL in 0.9 % 1 g IV Q12H 12/21/23 12/21/23 Unknown History sodium chloride intravenous solution Allergies Allergy/AdvReac Type Severity Reaction Status Date / Time ceftriaxone Allergy Severe Anaphylactic Verified 11/25/24 21:27 Shock fentanyl Allergy Severe Stopped Verified 11/25/24 21:27 Breathing Iodinated Contrast Media Allergy Intermediate Hives/RED Verified 11/25/24 21:27 FACE ciprofloxacin Allergy Mild RASH Verified 11/25/24 21:27 codeine Allergy Mild SEVERE Verified 11/25/24 21:27 DROWSINESS venom-honey bee Allergy Mild RASH Verified 11/25/24 21:27 levofloxacin Allergy Unknown Unknown Verified 11/25/24 21:27 Sulfa (Sulfonamide Allergy Unknown Unknown Verified 11/25/24 21:27 Antibiotics) morphine Allergy Stopped Verified 11/25/24 21:27 Breathing propofol AdvReac Severe seizures Verified 11/25/24 21:27 [facility] Past Medical History Medical History Acute blood loss anemia NSAID long-term use Osteomyelitis of lumbar spine Seizures Deep venous thrombosis Diet-controlled type 2 diabetes mellitus Chronic obstructive pulmonary disease Tobacco user Anxiety and depression Kidney stone Endometriosis Uterine cancer Asthma Surgical History Surgical History History of laminectomy (11/2023) L4-S1 per Dr. Skelton at [facility] complicated by hematoma and infection. History of Jennifer-en-Y gastric bypass History of hysterectomy for cancer History of tonsillectomy History of hysterectomy History of lobectomy of lung Right upper lobe for precancerous nodule Family History Family History Other Unknown family medical history Social History Social History Social History: Surrogate medical decision maker: Kathie Irvin, mother. Code status: Full code. Smoking packs per day: 0.5 Smoking cigarettes per day: 10.0 Years smoked: 31 Smoking pack-years: 15.50 Smoking status: Current every day smoker Tobacco type: cigarettes Alcohol intake: unknown Substance use: unknown Do You Feel Safe in your Home?: Yes Lack of Transportation: No Lack of Food: Often True Current Housing: I Have Housing Concerned About Future Housing: No Difficulty Paying Gas/Electric Bills: YES Difficulty Paying for Meds: No Currently Unemployed: Decline to Answer Education: Trade/Vocational Certificate Difficulty w/ Childcare or Family Care: No Spiritual care concerns: No Course Vital Signs Vital signs: Vital Signs Oxygen Delivery Room Air 03/09/25 20:28 Temperature 97.9 F 03/09/25 20:31 Pulse Rate 77 03/09/25 20:31 Respiratory Rate 20 03/09/25 20:31 Blood Pressure 145/88 H 03/09/25 20:31 Pulse Oximetry 100 03/09/25 20:31 Oxygen Delivery Room Air 03/09/25 20:31 Medical Decision Making Vital Signs Vital Signs: Vital Signs Oxygen Delivery Room Air 03/09/25 20:28 Temperature 97.9 F 03/09/25 20:31 Pulse Rate 77 03/09/25 20:31 Respiratory Rate 20 03/09/25 20:31 Blood Pressure 145/88 H 03/09/25 20:31 Pulse Oximetry 100 03/09/25 20:31 Oxygen Delivery Room Air 03/09/25 20:31 Lab Data 03/09/25 20:49 03/09/25 20:49 Labs: Lab Results 03/09/25 03/09/25 Range/Units 20:49 21:17 WBC 6.8 (4.5-10.0) K/mm3 RBC 4.45 (4.2-5.4) M/mm3 Hgb 10.2 L (12.0-15.0) g/dL Hct 33.2 L (37.0-47.0) % MCV 74.6 L (80-100) fl MCH 22.9 L (26-34) pg MCHC 30.7 L (32-36) g/dl RDW 16.3 H (11.5-14.5) % Plt Count 357 (150-375) k/mm3 MPV 9.9 (7.4-10.4) fl Immature Gran % (Auto) 0.3 (0-0.5) % Neut % (Auto) 59.1 (45.5-73.1) % Lymph % (Auto) 30.7 (18.3-44.2) % [place] % (Auto) 6.8 (2.6-8.5) % Eos % (Auto) 2.5 (0-4.4) % Baso % (Auto) 0.6 (0.2-1.2) % Lymph # (Auto) 2.08 (0.9-3.2) K/mm3 [place] # (Auto) 0.5 (0.1-0.6) K/mm3 Eos # (Auto) 0.2 (0-0.3) K/mm3 Baso # (Auto) 0.0 (0.0-0.1) K/mm3 Abs Immat Gran (auto) 0.02 (0.00-0.031) K/mm3 Absolute Neuts (auto) 4.0 (1.3-6.7) K/mm3 Absolute Nucleated RBC 0.000 (0.0-0.012) K/mm3 Band Neutrophils % Not Reportable Nucleated RBC % 0.0 (0.0-0.2) % Platelet Estimate Adequate (Adequate) Microcytosis 1+ (NORMAL) Ovalocytes 1+ Schistocytes None seen Sodium Cancelled Potassium Cancelled Chloride Cancelled Carbon Dioxide Cancelled Anion Gap Cancelled BUN Cancelled Creatinine Cancelled Estim Creat Clear Calc Cancelled Estimated GFR Cancelled Glucose Cancelled POC Capillary Glucose 95 (65-105) mg/dl Calcium Cancelled Total Bilirubin Cancelled AST Cancelled ALT Cancelled Alkaline Phosphatase Cancelled Total Protein Cancelled Albumin Cancelled Discharge Plan Discharge Clinical Impression: Seizure Patient Disposition: Left Without Being Seen Patient Language: Hebrew Prescriptions: No Action metronidazole 500 mg tablet 500 mg PO Q8H lisinopril 10 mg tablet 5 mg PO DAILY carbamazepine 100 mg capsule, ER multiphase 12 hr 200 mg PO BID cyclobenzaprine 10 mg tablet 10 mg PO TID PRN (Reason: Muscle Spasm) Rx Instructions: no driving or alcohol while taking albuterol sulfate 2.5 mg /3 mL (0.083 %) Solution For Nebulization 2.5 mg inhalation Q3H albuterol sulfate 90 mcg/actuation HFA aerosol inhaler 2 puff INHALATION Q4H ondansetron [Zofran ODT] 4 mg Tablet,Disintegrating 4 mg PO Q6H PRN (Reason: Nausea And Vomiting) cefepime 1 gram Piggyback 2 g IV Q8H vancomycin in 0.9 % sodium chl 1 gram/100 mL Solution 1 g IV Q12H nitrofurantoin monohyd/m-cryst [Macrobid] 100 mg capsule 100 mg PO Q12H 5 Days Qty: 10 0RF Rx Instructions: must administer with a meal/food Follow-up/Referrals: Scar,Eli Zambrano MD [Primary Care Provider] -
== END 2025-03-09 22:45 | disposition left against medical advice (07) ==
PROVIDERS: Emergency Provider Emergency Medicine; PCP Family Medicine
DX: G40.909 Epilepsy, unspecified, not intractable, without status epilepticus (principal); E11.9 Type 2 diabetes mellitus without complications; J44.9 Chronic obstructive pulmonary disease, unspecified; N80.9 Endometriosis, unspecified; F32.A Depression, unspecified; F41.9 Anxiety disorder, unspecified; F17.210 Nicotine dependence, cigarettes, uncomplicated; Z98.84 Bariatric surgery status; Z86.718 Personal history of other venous thrombosis and embolism; Z85.42 Personal history of malignant neoplasm of other parts of uterus; Z87.442 Personal history of urinary calculi; Z90.710 Acquired absence of both cervix and uterus; Z90.2 Acquired absence of lung [part of]; Z79.899 Other long term (current) drug therapy
CPT/HCPCS: 36415; 70450; 82948; 85025; 96365; 99284; J1953